=== PATIENT | male | born 1955 | race Caucasian/White ===

== ENCOUNTER → 2016-12-13 | Outpatient (REF) | payer OTHER | LOC: M LAB REF 13:14 | PROVIDERS: ATTEND Internal Medicine Nephrology | DX: Z48.22 Encounter for aftercare following kidney transplant (principal) ==

== ENCOUNTER → 2016-12-28 | Outpatient (REF) | payer OTHER | LOC: M LAB REF 12:57 | PROVIDERS: ATTEND Internal Medicine Nephrology | DX: Z48.22 Encounter for aftercare following kidney transplant (principal) ==

== ENCOUNTER → 2017-04-26 | Day surgery (SDC) | payer OTHER ==
[~2017-04-26] VITALS: Ht 185.4 cm; Wt 97.1 kg
[~2017-04-26] MED LIST: ALIN500T2 PO; AMLO10TA2 PO; ASPI81TA85 PO; BUPIVACAINE HCL 0.5% 30 ML VIAL As Ordered ONE; D5W/0.9% SODIUM CHLORIDE 1,000 ML IV SCH; EZETIMIBE PO; FOLI1TAB4 PO; HEPARIN SOD (PORCINE) 5000 UNITS/ML VIAL As Ordered ONE; LIDOCAINE 1% SDV INJ 30 ML VIAL As Ordered ONE; LIDOCAINE 2% INJ 100 MG/5 ML SDV (FOR ANES.) As Ordered ONE; MAGN400T5 PO; METO25TA4 PO; MIDAZOLAM INJ 2 MG/2 ML VIAL (J2250) As Ordered ONE; MYFO360T PO; PANT40TA2 PO; PERCOCET 5MG/325MG TAB As Ordered ONE; POTA4.25 PO; PRED5TA PO; PROG1CAP2 PO; PROPOFOL 200 MG/20 ML VIAL As Ordered ONE; ROPI0.5T PO; SIMVASTATIN PO; SULF1TAB23 PO; VITA250T30 PO; VYTO10TA25 PO; fentaNYL 100 MCG/2 ML INJECTION (J3010) As Ordered ONE
[2017-04-26 17:50] VITALS: BP 158/96
--- NOTE | 2017-05-17 19:17 | RO ---
DATE OF PROCEDURE: 04/26/2017 PREOPERATIVE DIAGNOSES: End-stage renal disease, status post renal transplantation. POSTOPERATIVE DIAGNOSES: End-stage renal disease status post renal transplantation. PROCEDURE: Right radiocephalic arteriovenous fistula formation. ATTENDING SURGEON: Judy Lowery MD THIRD GRADE TEACHER: None. ANESTHESIA: Local Monitored anesthesia care (MAC). ESTIMATED BLOOD LOSS: 50 mL IV FLUID: 900 mL HEPARIN: 5,000 units. COMPLICATIONS: None. DRAINS: None. SPECIMENS: None. IMPLANTS: None. INDICATION: Patient is a 61-year-old male with end-stage renal disease who underwent renal transplantation, has had failure of the transplantation requiring hemodialysis through a right internal jugular vein PermCath. The patient is regaining some of his transplant function and at this point is off of hemodialysis but was evaluated for access for intermediate frame tender hemodialysis in the future. The patient was evaluated and felt to a good candidate for a right radiocephalic arteriovenous fistula. Risks, benefits, and alternative treatment options were discussed with the patient. Alternative treatment options included, but were not limited to no intervention. Benefits included, but were not limited to access for hemodialysis without the need of a PermCath and reduced risk of complications secondary to PermCath. Risks included, but were not limited to infection, bleeding, failure of arteriovenous access to maintain patency with thrombosis, failure of arteriovenous access to mature requiring secondary intervention, possible need for further open surgical intervention, steal syndrome, cerebrovascular accident, myocardial infarction, pulmonary embolus, deep venous thrombosis (DVT), loss of limb, loss of life, and poor outcome. Patient understands, accepts these risks, and consents to proceed. DESCRIPTION OF PROCEDURE: Patient was taken to the operating room, placed supine on the operating room table, and the right upper extremity was prepped and draped in a standard surgical fashion. A time out was then completed with the staff in the room and myself confirming the correct laterality, patient and procedure. After the time out was completed, the skin overlying the radial artery and cephalic vein at the wrist were anesthetized with 1% lidocaine mixed with 0.50% Marcaine, after which two incisions were made, one over the radial artery, one over the cephalic vein. The cephalic vein was dissected as far distal as possible and transected with the remnant ligated with a #2-0 silk suture. The cephalic vein was then dilated with heparinized saline, brought through a tunnel between the two incisions and then anastomosed to the radial artery in an end-to-side fashion using #6-0 Prolene suture. There was good flow in the fistula at the completion of the anastomosis. The incisions were then closed with #3-0 Monocryl in a running subcuticular fashion once hemostasis was noted. Steri-Strips and dressings were applied. The patient tolerated the procedure well. All instruments, sponge and needle counts were correct at the end of the case. There were no complications. Dr. Lowery was present for and directed the entire case. Patient was transferred to the recovery room, awake, alert, extubated and in stable condition.
--- NOTE | 2017-05-17 19:20 | RO ---
DATE OF PROCEDURE: 04/26/2017 PREPROCEDURE DIAGNOSIS: End-stage renal disease, status post renal transplantation with failure of transplant. POSTPROCEDURE DIAGNOSIS: End-stage renal disease, status post renal transplantation with failure of transplant. PROCEDURE: Right internal jugular vein PermCath removal with cut down. SURGEON: Dr. Judy Lowery OYSTER WASHER: None. ANESTHESIA: Local with 10 mL of 1% lidocaine mixed with 0.5% Marcaine. COMPLICATIONS: None. DRAINS: None. SPECIMENS: None. IMPLANTS: None. INDICATION: The patient is a 61-year-old male with end-stage renal disease who underwent renal transplantation and has had failure of the transplantation requiring hemodialysis. The patient underwent placement of a PermCath and has been dialyzing through a right internal jugular vein PermCath. The patient has now recovered some of the function of the renal transplantation and no longer requires hemodialysis and will undergo removal of the right internal jugular vein PermCath. Risks, benefits and alternative treatment options were discussed with the patient. Alternative treatment options included but were not limited to no intervention. Risks included but were not limited to infection, bleeding, pneumothorax, hemothorax, cerebrovascular accident, myocardial infarction, pulmonary embolus, deep vein thrombosis (DVT), loss of limb, loss of life and poor outcome. Patient understands, accepts these risks and consents to proceed. DESCRIPTION OF PROCEDURE: The patient remained on the table after undergoing a right radiocephalic arteriovenous fistula formation. The right neck and chest region were prepped and draped in a standard surgical fashion. The sutures holding the PermCath in place were removed and manual traction was applied to the PermCath in an attempt to release the subcutaneous cuff spontaneously. This was not successful. The skin overlying the catheter and cuff were then anesthetized with 1% lidocaine mixed with 0.5% Marcaine after which the cuff was sharply dissected free through the entry site in the right chest. Once the cuff was sharply dissected free, the catheter was removed and manual compression was applied for hemostasis. Dressings were then applied. The patient tolerated the procedure well. All instrument, sponge and needle counts were correct at the end of the case. There were no complications. Dr. Lowery was present for and directed the entire case. The patient was transferred to the recovery room, awake, alert, extubated and in stable condition.
== END | disposition home or self-care (01) ==
LOC: M SDC 13:55
PROVIDERS: ATTEND Surgery Vascular Surgery
DX: N18.6 End stage renal disease (principal); Z94.0 Kidney transplant status; I12.0 Hypertensive chronic kidney disease with stage 5 chronic kidney disease or end stage renal disease; K21.9 Gastro-esophageal reflux disease without esophagitis; Z79.899 Other long term (current) drug therapy; Z87.891 Personal history of nicotine dependence; Z85.46 Personal history of malignant neoplasm of prostate
CPT/HCPCS: 36415; 36821; 84132; J2250; J3010

== ENCOUNTER 2017-05-04 16:57 | Inpatient (IN) | payer OTHER ==
[~2017-05-04] VITALS: Ht 185.4 cm; Wt 96.2 kg
[~2017-05-04 16:57] MED LIST changes: -ALIN500T2 PO; -BUPIVACAINE HCL 0.5% 30 ML VIAL As Ordered ONE; -D5W/0.9% SODIUM CHLORIDE 1,000 ML IV SCH; -HEPARIN SOD (PORCINE) 5000 UNITS/ML VIAL As Ordered ONE; -LIDOCAINE 1% SDV INJ 30 ML VIAL As Ordered ONE; -LIDOCAINE 2% INJ 100 MG/5 ML SDV (FOR ANES.) As Ordered ONE; -MIDAZOLAM INJ 2 MG/2 ML VIAL (J2250) As Ordered ONE; -PERCOCET 5MG/325MG TAB As Ordered ONE; -PROPOFOL 200 MG/20 ML VIAL As Ordered ONE; -SULF1TAB23 PO; -VYTO10TA25 PO; -fentaNYL 100 MCG/2 ML INJECTION (J3010) As Ordered ONE
[2017-05-04 18:09] LABS: BASO % 0.1 % (0.0-1.0); EOS # 0.1 K/mm3 (0.0-0.50); EOS % 1.6 % (0.0-3.0); LARGE UNSTAINED CELL # 0.1 K/mm3 (0.0-0.4); LARGE UNSTAINED CELL % 1.6 % (0.0-4.0); LYMPH # 1.1 K/mm3 (1.5-4.5); LYMPH % 17.4 % (24.0-44.0); MEAN CORPUSCULAR HEMOGLOBIN 28.7 pg (27.0-33.0); MEAN CORPUSCULAR HGB CONC 32.1 g/dl (32.0-36.5); MEAN CORPUSCULAR VOLUME 89.5 fl (80.0-96.0); MONO # 0.2 K/mm3 (0.0-0.8); NEUTROPHILS # 4.3 K/mm3 (1.8-7.7); NEUTROPHILS % 75.4 % (36.0-66.0); PLATELET COUNT, AUTOMATED 223 k/mm3 (150-450); RED CELL DISTRIBUTION WIDTH 17.1 % (11.5-14.5); WHITE BLOOD COUNT 5.7 K/mm3 (4.0-10.0)
[2017-05-04 18:33] LABS: ALBUMIN 4.3 GM/DL (3.2-5.2); ALBUMIN/GLOBULIN RATIO 1.59 (1.00-1.93); BILIRUBIN,DIRECT 0.2 MG/DL (0.0-0.2); BILIRUBIN,TOTAL 1.1 MG/DL (0.2-1.0); CALCIUM LEVEL 9.4 MG/DL (8.8-10.2); CREATININE FOR GFR 2.68 MG/DL (0.70-1.30); GLOMERULAR FILTRATION RATE 25.8 (>49); MAGNESIUM LEVEL 2.5 MG/DL (1.8-2.4); PHOSPHORUS LEVEL 4.2 MG/DL (2.5-4.9); POTASSIUM SERUM 4.3 MEQ/L (3.5-5.1)
[2017-05-04] MEDS ORDERED: NS 1,000 ML IV ONE (19:00)
--- NOTE | 2017-05-04 19:02 | REP ---
ACUTE ABDOMINAL SERIES: 05/04/2017. HISTORY: Abdominal pain. Comparison: 02/16/2016, 12/03/2010, KUB, CT abdomen and pelvis 02/10/2016. Findings: PA chest. Lung anderson are well inflated. CP angles sharply defined. There is no effusion, lateral pleural thickening, apical scarring and pneumothorax. No infiltrate or mass. No nodules. Nipple shadows project over the anterior 5th ribs on each side. Heart is not enlarged. Aorta is normal. Airway is intact. No mediastinal or hilar mass. No free air under the diaphragm. Flat and upright abdomen. There are right upper quadrant surgical clips and calcifications overlying the renal fossae on both sides, not much changed. There is a dextrorotatory curve lumbar spine centered at L1. There are short twelfth ribs. There are clips overlying the inferior aspect of the iliac bone near the SI joint on the right in this patient with a known transplant kidney in the pelvis. Gas pattern nonspecific. No dilated bowel loops, masses or free air. A few air-fluid levels in nondilated small bowel loops in the right upper quadrant noted. Impression: 1. Nonspecific gas pattern. A few air-fluid levels in nondilated small bowel loops in the right upper quadrant that might reflect some gastroenteritis or ileus. No dilated colon or small bowel, free air, abscess or mass. 2. Right upper quadrant surgical clips and bilateral calcifications in the renal fossae, unchanged. 3. Surgical clips over the right lower quadrant just lateral to the inferior margin of the SI joint in this patient with known transplant kidney. 4. PA chest without acute cardiopulmonary change. Signed by Ananth Sharpe MD 05/04/2017 08:25 P
[2017-05-04] MEDS ORDERED: VYTO10TA25 PO (19:43)
[2017-05-04] MEDS ORDERED: ONDANSETRON 4MG/2ML VIAL (J2405) IV PRN (20:45)
[2017-05-04] MEDS ORDERED: ACETAMINOPHEN TAB 650MG DOSE (2X325MG) PO PRN (20:45)
[2017-05-04] MEDS ORDERED: BACTRIM 160MG/800MG DS TAB PO ONE (21:00)
--- NOTE | 2017-05-04 21:03 | HPEPDOC ---
Medical History and Physical Date of Admission May 04, 2017 at 20:43 History and Physical PRIMARY CARE PROVIDER: Yuriy Marino ATTENDING: Yazan Clifford MD CHIEF COMPLAINT: Diarrhea HISTORY OF PRESENT ILLNESS: This is a 61-year-old male past medical history of end-stage renal disease, status post renal transplant 2006, hypertension, prostate cancer status post prostatectomy, kidney stones who presents complaining of diarrhea. Patient was recently hospitalized and [facility] and transferred to [facility] in February 2017 for progressive worsening of renal function, hyperkalemia, bradycardia. At the time patient was started on hemodialysis which he had continued with Dr. Erazo up until 2 weeks ago. Patient states that he started to develop diarrhea 5 days ago, and has had multiple episodes - 10-15 times a day. Urinating well. Patient called Dr. Erazo who recommended that he come to the emergency department. PAST MEDICAL HISTORY: As per HPI PAST SURGICAL HISTORY: Renal transplant 2005, prostatectomy 2007, AV fistula earlier this week SOCIAL HISTORY: History of half pack per day tobacco abuse 30 years, quit many years ago. Occasional alcohol. No illicit drug use. FAMILY HISTORY: Non contributory ALLERGIES: Please see below. REVIEW OF SYSTEMS: HEENT: Denies sore throat/headache CARDIOVASCULAR: Denies chest pain/palpitations RESPIRATORY: Denies shortness of breath/cough GASTROINTESTINAL: +nausea. No vomiting GENITOURINARY: Denies dysuria/urinary urgency. MUSCULOSKELETAL: Denies myalgias/arthralgias NEUROLOGICAL: Denies any focal weakness HOME MEDICATIONS: Please see below. PHYSICAL EXAMINATION: Vitals: (see below) General: No acute distress, laying comfortably in bed. HEENT: Moist mucous membranes. Neck: No JVD or lymphadenopathy Cardiac: RRR, No murmurs Pulm: Clear to auscultation b/l. No wheezing, rhonchi Abd: NT/ND + BS Ext: No edema or cyanosis. Right AVF with bruit/thrill. Distal pulse intact. Cap refill <2sec LABORATORY DATA: See below. IMAGING: Abdominal x-ray 05/04/17 Impression: 1. Nonspecific gas pattern. A few air-fluid levels in nondilated small bowel loops in the right upper quadrant that might reflect some gastroenteritis or ileus. No dilated colon or small bowel, free air, abscess or mass. 2. Right upper quadrant surgical clips and bilateral calcifications in the renal fossae, unchanged. MICROBIOLOGY: Please see below. ASSESSMENT/PLAN: 1. 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 Patient states that diarrhea has slightly started to slow down. Has been trying to keep up with his fluids. Given that he is immunocompromised, we will start Bactrim for Cyclospora. Supportive care. Gentle hydration. 2. End-stage renal disease, had been on hemodialysis up until 2 weeks ago. Status post kidney transplant 2005. Renal function noted, patient states that 2 weeks ago, his Cr was 2.39. Nephrology will be consulted. Continue patient's home meds. 3. History of hypertension- continue amlodipine 4. History of prostate cancer status post prostatectomy DVT prophylaxis out of bed and ambulate Patient followed by Dr. Allyson Archer starting 05/05/17 at 7 AM. Vital Signs Vital Signs Date Time Temp Pulse Resp B/P (MAP) Pulse Ox O2 Delivery O2 Flow Rate FiO2 05/04/17 19:19 05/04/17 16:57 97.5 62 16 98 Room Air Laboratory Data Labs 24H Laboratory Tests 2 05/04/17 17:56: White Blood Count 5.7, Red Blood Count 4.63, Hemoglobin 13.3L, Hematocrit 41.4L , Mean Corpuscular Volume 89.5, Mean Corpuscular Hemoglobin 28.7, Mean Corpuscular Hemoglobin Concent 32.1, Red Cell Distribution Width 17.1H, Platelet Count 223, Neutrophils (%) (Auto) 75.4H, Lymphocytes (%) (Auto) 17.4L, Monocytes (%) (Auto) 4.0, Eosinophils (%) (Auto) 1.6, Basophils (%) (Auto) 0.1, Neutrophils # (Auto) 4.3, Lymphocytes # (Auto) 1.1L, Monocytes # (Auto) 0.2, Eosinophils # (Auto) 0.1, Basophils # (Auto) 0.0, Large Unclassified Cells % 1.6 , Large Unclassified Cells # 0.1, Anion Gap 9, Glomerular Filtration Rate 25.8L , Calcium Level 9.4, Phosphorus Level 4.2, Magnesium Level 2.5H, Aspartate Amino Transf (AST/SGOT) 20, Alanine Aminotransferase (ALT/SGPT) 43, Alkaline Phosphatase 104, Total Bilirubin 1.1H, Direct Bilirubin 0.2, Total Protein 7.0, Albumin 4.3, Albumin/Globulin Ratio 1.59 05/04/17 17:57: Urine Appearance HAZY, Urine Color YELLOW, Urine pH 5.0, Urine Specific [place] 1.014, Urine Protein 1+H, Urine Glucose (UA) NEGATIVE, Urine Ketones NEGATIVE, Urine Urobilinogen 0.2, Urine Bilirubin NEGATIVE, Urine Leukocyte Esterase NEGATIVE, Urine Blood NEGATIVE, Urine Nitrite NEGATIVE, Urine WBC (Auto) 2, Urine RBC (Auto) 4H, Urine Hyaline Casts (Auto) 0, Urine Bacteria (Auto) 1+H, Urine Squamous Epithelial Cells 0, Urine Mucus (Auto) SMALL, Urine Sperm (Auto) CBC/BMP Laboratory Tests 05/04/17 17:56 Red Blood Count 4.63, Mean Corpuscular Volume 89.5, Mean Corpuscular Hemoglobin 28.7, Mean Corpuscular Hemoglobin Concent 32.1, Red Cell Distribution Width 17.1 H, Neutrophils (%) (Auto) 75.4 H, Lymphocytes (%) (Auto) 17.4 L, Monocytes (%) (Auto) 4.0, Eosinophils (%) (Auto) 1.6, Basophils (%) (Auto) 0.1, Neutrophils # (Auto) 4.3, Lymphocytes # (Auto) 1.1 L, Monocytes # (Auto) 0.2, Eosinophils # (Auto) 0.1, Basophils # (Auto) 0.0 Microbiology Microbiology 05/04/17 Gastrointestinal Tract Panel (PCR) - Final, Complete Cyclospora Cayetanensis Enteroaggregative E.coli Enteropathogenic E.coli Home Medications Scheduled (Vytorin 10-40 mg) 1 Tab Tab, 1 TAB PO QHS Amlodipine Besylate (Amlodipine Besylate) 10 Mg Tab, 10 MG PO DAILY Aspirin (Aspir-81) 81 Mg Tab, 81 MG PO DAILY Folic Acid (Folic Acid) 1 Mg Tab, 1 MG PO DAILY Magnesium Oxide (Magnesium Oxide 400) 400 Mg Tab, 800 MG PO BID Metoprolol Tartrate (Metoprolol Tartrate) 25 Mg Tab, 25 MG PO BID Nitazoxanide (Alinia) 500 Mg Tab, 500 MG PO BID Pantoprazole Sodium (Pantoprazole Sodium) 40 Mg Tab, 40 MG PO DAILY Prednisone (Prednisone) 5 Mg Tab, 5 MG PO DAILY Pyridoxine HCl (Vitamin B6) 250 Mg Tab, 250 MG PO DAILY Tacrolimus (Prograf) 1 Mg Cap, 1 MG PO BID Trimethoprim/Sulfamethoxazole (Smz-Tmp Ds 800-160 mg) 1 Tab Tab, 1 TAB PO DAILY Allergies Coded Allergies: No Known Allergies (Verified , 04/26/17) YAZAN CLIFFORD MD May 04, 2017 21:03
[2017-05-04 22:05] VITALS: BP 167/85
[2017-05-04] MEDS: MAGNESIUM OXIDE 400 MG TAB (MAG-OX) PO SCH (22:25)
[2017-05-04] MEDS: METOPROLOL TART 25 MG TABLET PO SCH (22:26)
[2017-05-04] MEDS: TACROLIMUS 1 MG CAP (J7507) PO SCH (23:50)
[2017-05-05 02:00] VITALS: BP 165/88
[2017-05-05 06:00] VITALS: BP 161/87
[2017-05-05] MEDS: predniSONE 5 MG TAB PO SCH (09:46)
[2017-05-05] MEDS: FOLIC ACID 1 MG TAB PO SCH (09:46)
[2017-05-05] MEDS: BACTRIM 80MG/400MG TAB PO SCH (09:46)
[2017-05-05] MEDS: NS 1,000 ML IV SCH ×2 (09:47→18:59)
[2017-05-05] MEDS: PANTOPRAZOLE 40MG TAB (PROTONIX) PO SCH (09:47)
[2017-05-05] MEDS: TACROLIMUS 1 MG CAP (J7507) PO SCH ×2 (09:47→20:53)
[2017-05-05] MEDS: ASPIRIN 81 MG ENTERIC TAB PO SCH (09:47)
[2017-05-05] MEDS: MAGNESIUM OXIDE 400 MG TAB (MAG-OX) PO SCH ×2 (09:50→20:52)
[2017-05-05] MEDS: METOPROLOL TART 25 MG TABLET PO SCH ×2 (09:55→20:39)
[2017-05-05] MEDS: amLODIPine 10 MG TAB PO SCH (09:56)
[2017-05-05 10:00] VITALS: BP 156/62
[2017-05-05 10:48] LABS: MEAN CORPUSCULAR HEMOGLOBIN 29.6 pg (27.0-33.0); MEAN CORPUSCULAR VOLUME 89.7 fl (80.0-96.0); RED CELL DISTRIBUTION WIDTH 16.7 % (11.5-14.5); WHITE BLOOD COUNT 4.5 K/mm3 (4.0-10.0)
[2017-05-05 11:24] LABS: CALCIUM LEVEL 8.6 MG/DL (8.8-10.2); CREATININE FOR GFR 2.13 MG/DL (0.70-1.30); GLOMERULAR FILTRATION RATE 33.6 (>49); POTASSIUM SERUM 3.9 MEQ/L (3.5-5.1)
--- NOTE | 2017-05-05 11:36 | IPNPDOC ---
Subjective Date Seen The patient was seen on 05/05/17. Subjective Chief Complaint/HPI The patient is a 61-year-old male admitted with a reason for visit of Cyclosporiasis. Events since last encounter continues to have watery diarrhea, no abdominal pain , no nausea or vomiting , no blood in stool, no chest pain or sob , no fever or chills, Objective Physical Examination General Exam: Positive: Alert, Cooperative, No Acute Distress Eye Exam: Positive: PERRLA, Conjunctiva & lids normal, EOMI, Negative: Sclera icteric ENT Exam: Positive: Atraumatic, Mucous membr. moist/pink, Pharynx Normal Neck Exam: Positive: Supple, Negative: JVD, thyromegaly Chest Exam: Positive: Clear to auscultation, Normal air movement Heart Exam: Positive: Rate Normal, Regular Rhythm, Normal S1, Normal S2, Negative: Murmurs, Rubs Abdomen Exam: Positive: Normal bowel sounds, Soft, Negative: Tenderness, Hepatospenomegaly Extremity Exam: Positive: Normal pulses, Negative: Clubbing, Cyanosis, Edema Skin Exam: Positive: Nl turgor and temperature, Negative: Rash, Breakdown Assessment /Plan Problems (1) Cyclosporiasis Status: Acute Problem Text: will continue with IVF and bactrim adjust dosage according to renal functions will consult id (2) CLARE (acute kidney injury) Status: Acute Problem Text: will continue with IVF. consulted nephrology (3) Renal transplant, status post Status: Chronic Problem Text: will continue with immunosuppressants. about 2 months ago had acute transplant failure and was started on HD taken of HD 2 weeks ago as renal function had improved. (4) History of prostate cancer Status: Chronic (5) Kidney calculi Status: Chronic (6) Hypertension Status: Chronic Plan/VTE VTE Prophylaxis Ordered?: Yes VS, I&O, 24H, Fishbone Vital Signs/I&O Vital Signs Date Time Temp Pulse Resp B/P (MAP) Pulse Ox O2 Delivery O2 Flow Rate FiO2 05/05/17 10:00 98.1 64 18 156/62 (93) 96 Room Air I&O- Last 24 Hours up to 6 AM 05/05/17 06:00 Intake Total 1000 ml Output Total 625 ml Balance 375 ml Laboratory Data 24H LABS Laboratory Tests 2 05/04/17 17:56: White Blood Count 5.7, Red Blood Count 4.63, Hemoglobin 13.3L, Hematocrit 41.4L , Mean Corpuscular Volume 89.5, Mean Corpuscular Hemoglobin 28.7, Mean Corpuscular Hemoglobin Concent 32.1, Red Cell Distribution Width 17.1H, Platelet Count 223, Neutrophils (%) (Auto) 75.4H, Lymphocytes (%) (Auto) 17.4L, Monocytes (%) (Auto) 4.0, Eosinophils (%) (Auto) 1.6, Basophils (%) (Auto) 0.1, Neutrophils # (Auto) 4.3, Lymphocytes # (Auto) 1.1L, Monocytes # (Auto) 0.2, Eosinophils # (Auto) 0.1, Basophils # (Auto) 0.0, Large Unclassified Cells % 1.6 , Large Unclassified Cells # 0.1, Anion Gap 9, Glomerular Filtration Rate 25.8L , Calcium Level 9.4, Phosphorus Level 4.2, Magnesium Level 2.5H, Aspartate Amino Transf (AST/SGOT) 20, Alanine Aminotransferase (ALT/SGPT) 43, Alkaline Phosphatase 104, Total Bilirubin 1.1H, Direct Bilirubin 0.2, Total Protein 7.0, Albumin 4.3, Albumin/Globulin Ratio 1.59 05/04/17 17:57: Urine Appearance HAZY, Urine Color YELLOW, Urine pH 5.0, Urine Specific [place] 1.014, Urine Protein 1+H, Urine Glucose (UA) NEGATIVE, Urine Ketones NEGATIVE, Urine Urobilinogen 0.2, Urine Bilirubin NEGATIVE, Urine Leukocyte Esterase NEGATIVE, Urine Blood NEGATIVE, Urine Nitrite NEGATIVE, Urine WBC (Auto) 2, Urine RBC (Auto) 4H, Urine Hyaline Casts (Auto) 0, Urine Bacteria (Auto) 1+H, Urine Squamous Epithelial Cells 0, Urine Mucus (Auto) SMALL, Urine Sperm (Auto) 05/05/17 10:40: Anion Gap 10, Glomerular Filtration Rate 33.6L, Calcium Level 8.6L, Blood Urea Nitrogen 39H, Creatinine 2.13H, Sodium Level 139, Potassium Level 3.9, Chloride Level 109H, Carbon Dioxide Level 20L CBC/BMP Laboratory Tests 05/04/17 17:56 Red Blood Count 4.63, Mean Corpuscular Volume 89.5, Mean Corpuscular Hemoglobin 28.7, Mean Corpuscular Hemoglobin Concent 32.1, Red Cell Distribution Width 17.1 H, Neutrophils (%) (Auto) 75.4 H, Lymphocytes (%) (Auto) 17.4 L, Monocytes (%) (Auto) 4.0, Eosinophils (%) (Auto) 1.6, Basophils (%) (Auto) 0.1, Neutrophils # (Auto) 4.3, Lymphocytes # (Auto) 1.1 L, Monocytes # (Auto) 0.2, Eosinophils # (Auto) 0.1, Basophils # (Auto) 0.0 05/05/17 10:40 Red Blood Count 4.25 L, Mean Corpuscular Volume 89.7, Mean Corpuscular Hemoglobin 29.6, Mean Corpuscular Hemoglobin Concent 33.0, Red Cell Distribution Width 16.7 H, Calcium Level 8.6 L Microbiology Microbiology 05/04/17 Gastrointestinal Tract Panel (PCR) - Final, Complete Cyclospora Cayetanensis Enteroaggregative E.coli Enteropathogenic E.coli RIANNA FREIRE MD May 05, 2017 11:36
[2017-05-05 14:00] VITALS: BP 156/82
[2017-05-05 18:00] VITALS: BP 162/89
[2017-05-05] MEDS: NITAZOXANIDE 500 MG TAB (ALINIA) PO SCH (23:34)
[2017-05-05 23:59] VITALS: BP 162/88
[2017-05-06] MEDS: NS 1,000 ML IV SCH ×2 (01:41→08:21)
[2017-05-06 02:00] VITALS: BP 125/79
[2017-05-06 06:00] VITALS: BP 133/80
[2017-05-06 07:53] LABS: MEAN CORPUSCULAR HEMOGLOBIN 29.2 pg (27.0-33.0); MEAN CORPUSCULAR HGB CONC 32.1 g/dl (32.0-36.5); MEAN CORPUSCULAR VOLUME 91.1 fl (80.0-96.0); WHITE BLOOD COUNT 6.5 K/mm3 (4.0-10.0)
[2017-05-06 08:01] LABS: ALBUMIN 3.7 GM/DL (3.2-5.2); CALCIUM LEVEL 8.8 MG/DL (8.8-10.2); CREATININE FOR GFR 1.99 MG/DL (0.70-1.30); GLOMERULAR FILTRATION RATE 36.3 (>49); PHOSPHORUS LEVEL 3.4 MG/DL (2.5-4.9); POTASSIUM SERUM 4.1 MEQ/L (3.5-5.1)
[2017-05-06] MEDS: ASPIRIN 81 MG ENTERIC TAB PO SCH (08:21)
[2017-05-06] MEDS: PANTOPRAZOLE 40MG TAB (PROTONIX) PO SCH (08:21)
[2017-05-06] MEDS: predniSONE 5 MG TAB PO SCH (08:21)
[2017-05-06] MEDS: METOPROLOL TART 25 MG TABLET PO SCH ×2 (08:24→21:05)
[2017-05-06] MEDS: BACTRIM 80MG/400MG TAB PO SCH (08:26)
[2017-05-06] MEDS: TACROLIMUS 1 MG CAP (J7507) PO SCH ×2 (08:26→21:00)
[2017-05-06] MEDS: FOLIC ACID 1 MG TAB PO SCH (08:27)
[2017-05-06] MEDS: amLODIPine 10 MG TAB PO SCH (08:27)
[2017-05-06] MEDS: MAGNESIUM OXIDE 400 MG TAB (MAG-OX) PO SCH ×3 (08:27→21:00)
[2017-05-06] MEDS: HEPARIN SOD (PORCINE) 5000 UNITS/ML VIAL SQ SCH ×2 (09:00→21:00)
[2017-05-06 10:00] VITALS: BP 130/77
[2017-05-06] MEDS: NITAZOXANIDE 500 MG TAB (ALINIA) PO SCH ×2 (11:05→21:01)
--- NOTE | 2017-05-06 11:15 | IPNPDOC ---
Subjective Date Seen The patient was seen on 05/06/17. Subjective Chief Complaint/HPI The patient is a 61-year-old male admitted with a reason for visit of Cyclosporiasis. Events since last encounter Had 21 episodes of diarrhea yesterday says overnight had gotten a little better still watery but not as frequent as before, no abdominal pain , no nausea or vomiting , no fever or chills, no chest pain or sob , no cough or phlegm Objective Physical Examination General Exam: Positive: Alert, Cooperative, No Acute Distress Eye Exam: Positive: PERRLA, Conjunctiva & lids normal, EOMI, Negative: Sclera icteric ENT Exam: Positive: Atraumatic, Mucous membr. moist/pink, Pharynx Normal Neck Exam: Positive: Supple, Negative: JVD, thyromegaly Chest Exam: Positive: Clear to auscultation, Normal air movement Heart Exam: Positive: Rate Normal, Regular Rhythm, Normal S1, Normal S2, Negative: Murmurs, Rubs Abdomen Exam: Positive: Normal bowel sounds, Soft, Negative: Tenderness, Hepatospenomegaly Extremity Exam: Positive: Normal pulses, Negative: Clubbing, Cyanosis, Edema Skin Exam: Positive: Nl turgor and temperature, Negative: Rash, Breakdown Assessment /Plan Problems (1) Cyclosporiasis Status: Acute Problem Text: will continue with IVF and bactrim adjust dosage according to renal functions Seen By ID started also on nitaxonide. (2) CLARE (acute kidney injury) Status: Acute Response to Treatment: Improving Problem Text: will continue with IVF. consulted nephrology (3) Renal transplant, status post Status: Chronic Problem Text: will continue with immunosuppressants. about 2 months ago had acute transplant failure and was started on HD taken of HD 2 weeks ago as renal function had improved. (4) History of prostate cancer Status: Chronic (5) Kidney calculi Status: Chronic (6) Hypertension Status: Chronic Plan/VTE VTE Prophylaxis Ordered?: Yes VS, I&O, 24H, Fishbone Vital Signs/I&O Vital Signs Date Time Temp Pulse Resp B/P (MAP) Pulse Ox O2 Delivery O2 Flow Rate FiO2 05/06/17 08:27 56 160/85 05/06/17 06:00 97.7 17 99 Room Air I&O- Last 24 Hours up to 6 AM 05/06/17 06:00 Intake Total 4305 ml Output Total 950 ml Balance 3355 ml Laboratory Data 24H LABS Laboratory Tests 2 05/06/17 07:15: Blood Urea Nitrogen 27H, Creatinine 1.99H, Sodium Level 141, Potassium Level 4.1 , Chloride Level 112H, Carbon Dioxide Level 16L, Anion Gap 13, Glomerular Filtration Rate 36.3L, Calcium Level 8.8, Phosphorus Level 3.4, Magnesium Level 2.0, Albumin 3.7 CBC/BMP Laboratory Tests 05/06/17 07:15 Anion Gap 13 05/06/17 07:16 Red Blood Count 4.46, Mean Corpuscular Volume 91.1, Mean Corpuscular Hemoglobin 29.2, Mean Corpuscular Hemoglobin Concent 32.1, Red Cell Distribution Width 17.0 H Microbiology Microbiology 05/04/17 Gastrointestinal Tract Panel (PCR) - Final, Complete Cyclospora Cayetanensis Enteroaggregative E.coli Enteropathogenic E.coli RIANNA FREIRE MD May 06, 2017 11:15
[2017-05-06] MEDS: SODIUM BICARBONATE 75 MEQ in NS 0.45% 1,000 ML IV SCH ×2 (11:40→18:10)
[2017-05-06 14:00] VITALS: BP 149/71
[2017-05-06 18:00] VITALS: BP 147/77
--- NOTE | 2017-05-06 20:53 | IPN ---
DATE: 05/06/2017 Mr. Lees is seen this morning on his bedside. He was admitted with diarrhea and acute renal failure in the setting of kidney transplant. His stool test came back positive for Cyclospora and enteropathogenic E-coli. He is being treated with IV fluids and antibiotics. Apparently he had more than 30 liquid stools yesterday. He reports no bowel movement this morning so far. He is feeling better today and denies any nausea, abdominal pain, vomiting, fever or chills. PHYSICAL EXAMINATION: Temperature 97.7 degrees Fahrenheit, heart rate 56 per minute and respiratory rate 18 per minute. Blood pressure 160/85 mmHg and oxygen saturation 99% on room air. Intake and output records from yesterday showed total intake 3405 and output 1275 ml. He also had more than 30 stools, though recorded are only 21 as the patient did not inform the nursing staff about several events. His head is atraumatic. Neck is supple and without jugular venous distention (JVD) or thyroid enlargement. There is no oral thrush or ulcers. Heart: Sounds are regular. Lungs: Clear to auscultation bilaterally. Abdomen: Soft and nontender and without a palpable organomegaly. Transplant kidney is nontender in right lower quadrant. Extremities: Have no cyanosis or clubbing. Skin has no rash or ulcers. Neurologically he is awake, alert and oriented times three. Today's labs show WBC count 6.5, hemoglobin 13 and hematocrit 40.6. Sodium 141, potassium 4.1. CO2 is down to 16, BUN 27 and creatinine 1.99. Glucose 101 and calcium 8.8. PROBLEMS: 1. Diarrhea seems to be responding. The patient had Cyclospora and E-coli in his stool. We will continue with aggressive IV fluid hydration in order to decrease the risk of dehydration. He will remain on Bactrim 1 tablet daily, single strength, and Dr. Perez has also added nitazoxanide 500 mg twice a day 2. Metabolic acidosis. Most likely related to ongoing diarrhea. We will switch his IV fluid to sodium bicarbonate, bicarbonate drip with 75 mEq of sodium bicarbonate in half-normal saline and run at 150 mL per hour. Once his acidosis is corrected then we will stop the bicarbonate drip. 3. Acute renal failure superimposed on chronic kidney disease. This was related to dehydration and is gradually improving. We will continue with IV fluid at 150 mL per hour. 4. Kidney transplant status. The patient has been on mycophenolate, tacrolimus and prednisone. His mycophenolate is currently on hold due to diarrhea. We will resume it once he feels better. At present we will continue with tacrolimus and prednisone. 5. Hypertension. Blood pressure is reasonably well-controlled though slightly high today. Will continue to monitor and adjust his medications if needed. He will continue with amlodipine 10 mg daily and metoprolol 25 mg twice a day.
[2017-05-06 22:00] VITALS: BP 178/90
--- NOTE | 2017-05-06 22:40 | CR ---
DATE OF CONSULTATION: 05/05/2017 I was asked to consult by Dr. Yee for evaluation of Cyclosporiasis and enteropathogenic Escherichia (E) coli. HISTORY OF PRESENT ILLNESS: Jamil is a pleasant 61-year-old gentleman who is a renal transplant recipient since 2006, immunocompromised, who presented with a week history of profuse diarrhea going 20-30 times a day. The patient stated he has had diarrhea intermittently for months, but most recently over the past week has been severe. He denied having any nausea or vomiting. He had some cramps whenever he had to go to the bathroom. No incontinence. No fever or chills. The patient has recently been hospitalized at [facility] being transferred from [facility] on 02/17 through 02/23 with hyperkalemia and bradycardia and acute renal failure requiring hemodialysis, which he continued up until 2 weeks prior to admission. His Perma-Cath was removed on 04/16/17 and a new arteriovenous (AV) fistula was created by Dr. Lowery in his right arm. His kidney function has remained stable in the past 2 weeks with his kidney function normally at about 1.8. Since he has developed the diarrhea, creatinine had increased to 2.6 from patient was admitted for intravenous (IV) fluid hydration and treatment of the diarrhea. Stool was sent, was positive for Cyclospora and enteropathogenic E. coli. PAST MEDICAL HISTORY: 1. End-stage renal disease status post renal transplantation 2006. 2. Hypertension. 3. Prostate cancer. 4. Kidney stone, probably the cause of his renal failure, multiple stones with obstruction. PAST SURGICAL HISTORY: 1. Renal transplant 2006. 2. Prostatectomy for cancer in 2007. 3. AV fistula by Dr. Lowery 04/16/2017, and removal of Port-A-Cath. 4. Colonoscopy done by Dr. Hamilton September 2013. 5. Endoscopy and colonoscopy done by Dr. Lanier in 2006. 6. Previous AV fistula in left upper arm was excised and he has a residual, what looks like a small aneurysm. SOCIAL HISTORY: He used to smoke half a pack a day for 30 years, quit many years ago. Occasional alcohol use. No illicit drug use. 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 ALLERGIES: No known drug allergies. MEDICATIONS: - Norvasc 10 mg by mouth daily - Vytorin one tablet by mouth nightly - aspirin 81 mg daily - folic acid 1 mg daily - magnesium oxide 800 mg by mouth twice a day - metoprolol 25 mg by mouth twice a day - mycophenolate 360 mg by mouth twice a day - Protonix 40 mg by mouth daily - prednisone 5 mg by mouth daily - pyridoxine 250 mg by mouth daily - Prograf 1 mg by mouth twice a day LABORATORY DATA: White count is 4.5, hemoglobin 12.6, hematocrit 38.1, platelets 187. Sodium 139, potassium 3.9, chloride 109, bicarbonate 20, BUN 39, creatinine 2.13 , glucose 102, calcium 8.6. Urinalysis had 2 white cells and 4 red cells. Stools were positive for Cyclospora cayetanensis. Stool was unformed. E. coli and enteropathogenic E. coli. PHYSICAL EXAMINATION: He is a healthy looking gentleman in no acute distress. Temperature is 98.3, pulse 68, respirations 18, blood pressure 162/89, oxygen saturation 98% on room air. Heart: Normal S1, S2. No murmurs. Lungs are clear. No wheezes, rales or rhonchi. Abdomen is soft, multiple scars of right lower quadrant of renal transplant, left lower quadrant of previous nephrectomy, midline surgery of prostatectomy. Back: No costovertebral angle (CVA) or lumbosacral tenderness. Extremities: No clubbing, cyanosis or edema. No calf tenderness. Oropharynx is clear. The patient is a 61-year-old gentleman immunocompromised on multiple meds including prednisone, mycophenolate and Prograf who presents with severe diarrhea and dehydration with increasing kidney function. Creatinine increased from 1.8 to 2.7. The patient has received intravenous (IV) fluids and was started on Bactrim single-strength one tablet by mouth daily, adjusted for renal function to treat for Cyclospora. Enteropathogenic Escherichia (E) coli could be innocuous by standards, but sometimes could be also pathogenic and hopefully Bactrim would be also taking care of that. Due to the fact that his kidney function has worsened, his dose of Bactrim could not be increased to the usual dose of double-strength one tablet twice a day. Since he is immunocompromised, I would suggest adding a second drug. PLAN: Continue Bactrim single-strength one tablet daily. If his creatinine improves to less than 2, increase his dose to twice a day. Add nitazoxanide 500 mg by mouth twice a day for 14 days. I would treat this patient for 10-14 days minimum because of his severe renal compromise. If diarrhea does not improve in the next 2-3 days, he has had over the 19 bowel movements today, would call the renal transplant team in [place] and discuss his immunosuppression, whether some of his dose could be decreased or held until his diarrhea improves. The patient has not followed up with the renal transplant team in a while. He has followed up only with Dr. Erazo, so we may need to have him reestablish in [place] as well. LORENAD
[2017-05-07 02:00] VITALS: BP 157/68
[2017-05-07] MEDS: SODIUM BICARBONATE 75 MEQ in NS 0.45% 1,000 ML IV SCH (02:18)
[2017-05-07 05:54] LABS: MEAN CORPUSCULAR HEMOGLOBIN 29.2 pg (27.0-33.0); MEAN CORPUSCULAR HGB CONC 32.3 g/dl (32.0-36.5); MEAN CORPUSCULAR VOLUME 90.4 fl (80.0-96.0); RED CELL DISTRIBUTION WIDTH 16.9 % (11.5-14.5); WHITE BLOOD COUNT 5.7 K/mm3 (4.0-10.0)
[2017-05-07 06:00] VITALS: BP 170/77
[2017-05-07 06:15] LABS: ALBUMIN 3.3 GM/DL (3.2-5.2); CALCIUM LEVEL 8.4 MG/DL (8.8-10.2); CREATININE FOR GFR 1.61 MG/DL (0.70-1.30); GLOMERULAR FILTRATION RATE 46.4 (>49); MAGNESIUM LEVEL 1.6 MG/DL (1.8-2.4); PHOSPHORUS LEVEL 3.1 MG/DL (2.5-4.9); POTASSIUM SERUM 3.5 MEQ/L (3.5-5.1)
[2017-05-07] MEDS: MAG SULF 1GM/100ML (MAG RUN) 1 GM in APPROPRIATE DILUENT 1 EA IV SCH ×2 (07:58→09:20)
--- NOTE | 2017-05-07 08:31 | IPNPDOC ---
Subjective Date Seen The patient was seen on 05/07/17. Subjective Chief Complaint/HPI The patient is a 61-year-old male admitted with a reason for visit of Cyclosporiasis. Events since last encounter diarrhea getting better less frequent and thicker, no adbominal pain but lots of gas, no nausea or vomiting . Objective Physical Examination General Exam: Positive: Alert, Cooperative, No Acute Distress Eye Exam: Positive: PERRLA, Conjunctiva & lids normal, EOMI, Negative: Sclera icteric ENT Exam: Positive: Atraumatic, Mucous membr. moist/pink, Pharynx Normal Neck Exam: Positive: Supple, Negative: JVD, thyromegaly Chest Exam: Positive: Clear to auscultation, Normal air movement Heart Exam: Positive: Rate Normal, Regular Rhythm, Normal S1, Normal S2, Negative: Murmurs, Rubs Abdomen Exam: Positive: Normal bowel sounds, Soft, Negative: Tenderness, Hepatospenomegaly Extremity Exam: Positive: Normal pulses, Negative: Clubbing, Cyanosis, Edema Skin Exam: Positive: Nl turgor and temperature, Negative: Rash, Breakdown Assessment /Plan Problems (1) Cyclosporiasis Status: Acute Problem Text: will continue with IVF and bactrim adjust dosage according to renal functions GFR better to increased dosage of bactim to 1 DS tab daily Seen By ID started also on nitazaxonide. (2) SILVER (acute kidney injury) Status: Acute Response to Treatment: Improving Problem Text: Silver on ckd . baseline creatine 1.7 to 1.9 will continue with IVF. nephrology following. (3) Renal transplant, status post Status: Chronic Problem Text: will continue with immunosuppressants. mycophenolate is on hold , tacro and prednisone are continued. about 2 months ago had acute transplant failure and was started on HD taken of HD 2 weeks ago as renal function had improved. baseline creatinine after renal transplant 1.7 to 1.9 for 10 years till he developed acute transplant failure 2 months ago. (4) History of prostate cancer Status: Chronic (5) Kidney calculi Status: Chronic (6) Hypertension Status: Chronic Plan/VTE VTE Prophylaxis Ordered?: Yes VS, I&O, 24H, Fishbone Vital Signs/I&O Vital Signs Date Time Temp Pulse Resp B/P (MAP) Pulse Ox O2 Delivery O2 Flow Rate FiO2 05/07/17 06:00 98.0 64 20 170/77 (108) 96 Room Air I&O- Last 24 Hours up to 6 AM 05/07/17 06:00 Intake Total 4320 ml Output Total 5300 ml Balance -980 ml Laboratory Data 24H LABS Laboratory Tests 2 05/07/17 05:14: Blood Urea Nitrogen 17, Creatinine 1.61H, Sodium Level 142, Potassium Level 3.5 , Chloride Level 111H, Carbon Dioxide Level 21, Anion Gap 10, Glomerular Filtration Rate 46.4L, Calcium Level 8.4L, Phosphorus Level 3.1, Magnesium Level 1.6L, Albumin 3.3 CBC/BMP Laboratory Tests 05/07/17 05:14 Red Blood Count 4.05 L, Mean Corpuscular Volume 90.4, Mean Corpuscular Hemoglobin 29.2, Mean Corpuscular Hemoglobin Concent 32.3, Red Cell Distribution Width 16.9 H, Anion Gap 10 Microbiology Microbiology 05/04/17 Gastrointestinal Tract Panel (PCR) - Final, Complete Cyclospora Cayetanensis Enteroaggregative E.coli Enteropathogenic E.coli RIANNA FREIRE MD May 07, 2017 08:31
[2017-05-07] MEDS: HEPARIN SOD (PORCINE) 5000 UNITS/ML VIAL SQ SCH ×2 (09:00→21:00)
[2017-05-07] MEDS: TACROLIMUS 1 MG CAP (J7507) PO SCH ×2 (09:15→21:08)
[2017-05-07] MEDS: NITAZOXANIDE 500 MG TAB (ALINIA) PO SCH ×2 (09:15→21:07)
[2017-05-07] MEDS: amLODIPine 10 MG TAB PO SCH (09:15)
[2017-05-07] MEDS: ASPIRIN 81 MG ENTERIC TAB PO SCH (09:16)
[2017-05-07] MEDS: BACTRIM 160MG/800MG DS TAB PO SCH (09:16)
[2017-05-07] MEDS: FOLIC ACID 1 MG TAB PO SCH (09:17)
[2017-05-07] MEDS: MAGNESIUM OXIDE 400 MG TAB (MAG-OX) PO SCH ×2 (09:17→21:07)
[2017-05-07] MEDS: PANTOPRAZOLE 40MG TAB (PROTONIX) PO SCH (09:18)
[2017-05-07] MEDS: METOPROLOL TART 25 MG TABLET PO SCH ×2 (09:18→21:08)
[2017-05-07] MEDS: predniSONE 5 MG TAB PO SCH (09:19)
[2017-05-07 10:00] VITALS: BP 164/79
[2017-05-07] MEDS ORDERED: POTASSIUM CHLORIDE 10 MEQ SR TABLET PO ONE (12:00)
--- NOTE | 2017-05-07 12:47 | IPN ---
DATE: 05/06/2016 Mr. Lees seems to be doing better today. He had 21 bowel movements yesterday; today between midnight and 10:00 a.m. he only had two bowel movements. He has no nausea, vomiting, or abdominal pain. No fever or chills. He feels better. LABORATORY DATA: White count 6.5, hemoglobin 13, hematocrit 40.6, platelets 224. Sodium 141, potassium 4.1, chloride 112, bicarbonate 16, BUN 27, creatinine 1.9, glucose 101, calcium 8.8, phosphorus 3.4, magnesium 2, albumin 3.7. Stool culture had Cyclospora cayetanensis , enteroaggregative Escherichia (E) coli and enteropathogenic E. coli. PHYSICAL EXAMINATION: Temperature is 97.7, pulse 64, respirations 17, blood pressure 133/80, oxygen saturation 99% on room air. HEART: Normal S1, S2. No murmurs. LUNGS: Clear. No wheezes, rales, or rhonchi. ABDOMEN: Soft, nontender. BACK: No costovertebral angle (CVA) tenderness. EXTREMITIES: No edema. New arteriovenous (AV) fistula in the right wrist area. Old left AV fistula, nontender. IMPRESSION: 1. Cyclospora diarrhea with severe profuse diarrhea yesterday, improved today with Bactrim single strength daily. Nitazoxanide was also added, as patient is immunocompromised. 2. History of renal transplant, on tacrolimus, mycophenolate, and prednisone 5 mg. Mycophenolate has been held, which I agree with, as he is quite immunosuppressed with severe diarrhea. Would recommend holding for at least 4 weeks if okay with renal transplant team. 3. Enteropathogenic E. coli, enteroaggregative E. coli. Could be just innocuous bystanders. PLAN: Continue with Bactrim single strength daily. If his creatinine improves or if Dr. rEazo approves, maybe could increase to double-strength one tablet daily. Continue nitazoxanide 500 mg by mouth twice a day. Will treat the patient for 14 days, as he is immunocompromised.
[2017-05-07 14:00] VITALS: BP 145/69
[2017-05-07 18:00] VITALS: BP 143/73
[2017-05-08 02:00] VITALS: BP 144/67
--- NOTE | 2017-05-08 04:30 | IPN ---
DATE OF SERVICE: 05/07/2017 Mr. Lees is seen this morning on his bedside. He is feeling much better today and reports significant improvement in his diarrhea. He denies any nausea, vomiting or abdominal pain. He reports eating well and denies any blood in the stool or black colored stools. He did have a couple of loose stools today. However, volume has decreased significantly. PHYSICAL EXAMINATION: Temperature 98.5 degrees Fahrenheit, heart rate 60 per minute and respiratory rate 18 per minute. Blood pressure 164/79 mmHg and oxygen saturation 96% on room air. Intake and output records from yesterday showed total intake 4400 and output 4650. He had reported only four bowel movements last 24 hours. His neck veins are not abnormally distended and neck is supple and without any thyroid enlargement. Head is atraumatic. Pupils are equal and reactive to light and sclera is anicteric. Ears, nose and throat are unremarkable. Heart sounds are regular and lungs clear to auscultation bilaterally. Abdomen: Soft and nontender and without any palpable organomegaly. Transplant kidney in right lower quadrant is nontender. Extremities have no cyanosis or clubbing. Skin has no rash or ulcers. Neurologically, he is awake, alert and oriented times three. Today's labs show WBC count 5.7, hemoglobin 11.8 and hematocrit 36.6. Sodium 142 and potassium 3.5. BUN 17 and creatinine 1.61. Magnesium level 1.6 and calcium 8.4. PROBLEMS: 1. Diarrhea. The patient did have Cyclospora in his stool along with enteropathogenic Escherichia (E) coli. He is doing much better with Bactrim and will continue with the same. He is also receiving intravenous (IV) fluid and tolerating oral intake very well now. After current bag of IV fluid, I am going to stop it. 2. Metabolic acidosis. His acidosis has improved significantly. He has been on IV sodium bicarbonate drip. Diarrhea has improved now, so we will stop the bicarbonate drip later today when current bag runs out. 3. Hypomagnesemia. The patient has been on oral magnesium supplement. He did receive one dose of magnesium sulfate this morning and will continue with oral supplement. 4. Hypokalemia. This is related to large amount of IV fluid and ongoing diarrhea. We will give him one dose of oral potassium chloride 40 mEq and recheck his electrolytes tomorrow. 5. Acute kidney injury superimposed on chronic kidney disease. This was related to dehydration caused by diarrhea. Kidney function has improved to baseline or slightly better. Now his oral intake is adequate. We will stop his IV fluids and monitor his kidney function. 6. Kidney transplant status. The patient has been doing well and we will continue with prednisone and tacrolimus. Currently, his mycophenolate is on hold due to diarrhea. Once his diarrhea is completely resolved, then we will resume mycophenolate. 7. Disposition. At this point, the patient still needs to be in the hospital and will reevaluate him tomorrow. Once his diarrhea is completely better, then he can be discharged and continue with oral Bactrim at home.
[2017-05-08 06:00] VITALS: BP 161/77
[2017-05-08 06:03] LABS: MEAN CORPUSCULAR HEMOGLOBIN 29.3 pg (27.0-33.0); MEAN CORPUSCULAR HGB CONC 32.6 g/dl (32.0-36.5); MEAN CORPUSCULAR VOLUME 89.8 fl (80.0-96.0); RED CELL DISTRIBUTION WIDTH 16.7 % (11.5-14.5); WHITE BLOOD COUNT 5.9 K/mm3 (4.0-10.0)
[2017-05-08 06:21] LABS: ALBUMIN 3.1 GM/DL (3.2-5.2); CALCIUM LEVEL 8.4 MG/DL (8.8-10.2); CREATININE FOR GFR 1.75 MG/DL (0.70-1.30); GLOMERULAR FILTRATION RATE 42.1 (>49); MAGNESIUM LEVEL 1.9 MG/DL (1.8-2.4); PHOSPHORUS LEVEL 2.8 MG/DL (2.5-4.9); POTASSIUM SERUM 3.8 MEQ/L (3.5-5.1)
[2017-05-08] MEDS: BACTRIM 160MG/800MG DS TAB PO SCH (08:55)
[2017-05-08] MEDS: NITAZOXANIDE 500 MG TAB (ALINIA) PO SCH (08:55)
[2017-05-08 08:56] VITALS: BP 149/83
[2017-05-08] MEDS: amLODIPine 10 MG TAB PO SCH (08:56)
[2017-05-08] MEDS: FOLIC ACID 1 MG TAB PO SCH (08:56)
[2017-05-08] MEDS: MAGNESIUM OXIDE 400 MG TAB (MAG-OX) PO SCH (08:56)
[2017-05-08] MEDS: METOPROLOL TART 25 MG TABLET PO SCH (08:56)
[2017-05-08] MEDS: ASPIRIN 81 MG ENTERIC TAB PO SCH (08:56)
[2017-05-08] MEDS: predniSONE 5 MG TAB PO SCH (08:56)
[2017-05-08] MEDS: HEPARIN SOD (PORCINE) 5000 UNITS/ML VIAL SQ SCH (08:57)
[2017-05-08] MEDS: TACROLIMUS 1 MG CAP (J7507) PO SCH (08:57)
[2017-05-08] MEDS: PANTOPRAZOLE 40MG TAB (PROTONIX) PO SCH (08:57)
[2017-05-08] MEDS ORDERED: ALIN500T2 PO (09:19)
[2017-05-08] MEDS ORDERED: SULF1TAB23 PO (09:19)
--- NOTE | 2017-05-08 22:19 | DSES ---
DATE OF ADMISSION: 05/06/2017 DATE OF DISCHARGE: 05/08/2017 PRIMARY CARE PROVIDER: Yuriy Foy. REGULATORY SUBMISSIONS ASSOCIATE: Dr. Erazo. DISCHARGE DIAGNOSES: 1. Cyclospora diarrhea. 2. Enteropathogenic Escherichia (E) coli and enteroaggregative E. coli in stool could be just bystanders. 3. Acute kidney injury on chronic kidney disease, baseline creatinine of 1.7-1.9. 4. Renal transplant status. 5. Recent history of acute transplant failure requiring hemodialysis for about 2 months. Discontinued hemodialysis in the first of week April 2017. 6. History of prostate cancer. 7. Hypertension. 8. Renal stones. HOSPITAL COURSE: This is a 61-year-old male who presented to the emergency room with intractable diarrhea of watery in nature for 5 days having about 15-20 times per day. Patient was found to be dehydrated having acute kidney injury on chronic kidney disease. Patient's stool was sent and was found to have Cyclosporiasis along with enteropathogenic E. coli and enteroaggregative E. coli. Dr. Perez from infectious disease saw the patient and the patient was started on Bactrim and nitazoxanide. Patient was given aggressive hydration. There was dramatic improvement in his diarrhea with only 4-5 times per day. His renal functions improved with creatinine coming down to baseline. His mycophenolate was held because of diarrhea and will continue to be held on discharge until diarrhea has resolved completely. At present, patient's symptoms are much improved, does not have any complaints. Vital signs are stable and functionally patient is at baseline, so the patient is going to be discharged home. PHYSICAL EXAMINATION: VITAL SIGNS: Temperature 98.2, pulse 58, respiratory rate 20, blood pressure 149/83, pulse oximetry 98% in room air. GENERAL: Patient awake, alert, oriented times three, sitting up in bed in no acute distress. HEENT: Normocephalic, atraumatic. Moist mucous membranes. Anicteric eyes. CHEST: Clear to auscultation. CARDIOVASCULAR: S1, S2 regular. No rub, murmur or gallop. ABDOMEN: Soft, nontender, bowel sounds present. EXTREMITIES: No edema. LABORATORY DATA: WBC 5.9, hemoglobin 11.5, platelets 183. Sodium 143, potassium 3.8, chloride 112, bicarbonate 20, BUN 16, creatinine 1.75, glucose 111, calcium 8.4. DISPOSITION: Patient is discharged home in a stable condition. DISCHARGE INSTRUCTIONS: Patient to followup with Dr. Erazo within a week. Patient to followup with primary care provider in 1 week. Patient should get complete blood count (CBC) and basic metabolic panel checked weekly until patient is off antibiotics. Regular diet. Activity as tolerated. Patient to followup with Dr. Perez in 2 weeks.
--- NOTE | 2017-05-23 07:51 | CR ---
DATE OF CONSULTATION: 05/05/2017 NEPHROLOGY CONSULTATION FOR: Allyson Archer MD REASON FOR CONSULTATION: Is acute renal failure, diarrhea in this gentleman with kidney transplant. HISTORY OF PRESENT ILLNESS: Mr. Lees is a 61-year-old gentleman with known history of end-stage renal disease related to primary hyperoxaluria and kidney stones. He has a kidney transplant. which has been working well. However, he developed acute renal failure few weeks ago and required temporary hemodialysis. His dialysis was stopped just a couple of weeks ago when his kidney function partially improved. He is now admitted to [facility] with diarrhea for 5 days duration prior to admission and acute kidney injury. A nephrology consultation was requested and patient is seen in the morning of 05/05/2017 on his bedside. I discussed his condition earlier at the time of admission with the emergency room physician and recommendations were given for treatment. PAST MEDICAL AND SURGICAL HISTORY: Significant for 1. History of primary hyperoxaluria 2. History of recurrent kidney stones. 3. History of prior nephrectomy related to kidney stones. 4. History of kidney transplant in 2005. 5. Hypertension. 6. History of prostate cancer, status post prostatectomy. 7. History of recent acute renal failure due to oxalosis. 8. History of prior atriovenous (AV) fistula surgery and most recent new AV fistula creation in his right wrist. PERSONAL AND SOCIAL HISTORY: Patient is . He smoked, however did quit smoking. He denies any recreation or drug use and does drink beer. FAMILY HISTORY: Is significant for primary hyperoxaluria. ALLERGIES: Patient has NO KNOWN DRUG ALLERGIES. MEDICATIONS: His home medications include: - amlodipine 10 mg daily - Vytorin 10/40 mg daily - aspirin 81 mg daily - folic acid 1 mg daily - magnesium oxide 400 mg twice a day - metoprolol 25 mg twice a day - Myfortic 360 mg twice a day - Protonix 40 mg daily - prednisone 5 mg daily - tacrolimus 1 mg twice a day - pyridoxine 250 mg daily REVIEW OF SYSTEMS: Patient denies any fever or chills. Ears, nose and throat are unremarkable. Cardiovascular system is significant for hypertension and no history of congestive heart failure or coronary artery disease known. Respiratory system is negative for cough, hemoptysis or pleuritic type of chest pain. Gastrointestinal (GI) system is significant for recurrent diarrhea for at least 5 days prior to admission. He denies any abdominal pain, rectal bleeding or black colored stools. He denies any vomiting. Genitourinary () system is significant for history of kidney transplant and primary hyperoxaluria with recurrent kidney stones. He denies any hematuria or dysuria. Musculoskeletal system negative for any significant arthritis or leg edema. Endocrine system is negative for diabetes or thyroid problems. Hematological system is negative for anemia or anticoagulation. Neurological system negative for seizures or stroke. Skin is negative for rash or ulcers. Psychosocial system negative for depression or anxiety. PHYSICAL EXAMINATION: Patient is awake and alert at the time of my visit. Temperature is 98.3 degrees Fahrenheit, heart rate 66 per minute and respiratory rate 18 per minute. Blood pressure 156/62 mmHg and oxygen saturation 92% on room air. Head is atraumatic. Ears, nose and throat are unremarkable. Pupils equal and reactive to light and sclera is anicteric. Neck is supple and without jugular venous distention (JVD) or thyroid enlargement. Heart sounds are regular and without a gallop or murmur. Lungs: Clear to auscultation bilaterally. Abdomen: Soft and nontender and without hepatosplenomegaly. Transplant kidney in right lower quadrant is nontender. Extremities have no cyanosis or clubbing. Skin has no rash or ulcers. Neurologically, he is awake, alert and oriented times three. LABORATORY DATA: WBC count 4.5, hemoglobin 12.6 and hematocrit 38.1. Platelets 187. On admission, his sodium was 133 and potassium 4.3. BUN 41 and creatinine 2.68. Magnesium 2.5, calcium 9.4 and phosphorus 4.2. Urinalysis showed 1+ protein and 2 WBCs and 4 RBCs. Abdominal x-ray was negative for any air-fluid levels. Bilateral calcifications in the renal fossa and surgical clips noted. PROBLEMS: 1. Diarrhea. Most likely patient has infective diarrhea. His stools study has come back positive for Cyclospora and enteropathogenic Escherichia (E) coli. Patient has been started on Bactrim. Infectious disease consultation is pending at this point. I recommend to continue with IV fluid hydration as patient has frequent loose stools. Will need to monitor him closely due to prior history of similar episode when he developed acute renal failure and required temporary dialysis. His diarrhea is most likely related to immunocompromised status. 2. Acute renal failure superimposed on chronic kidney disease. His baseline serum creatinine is about 2.0. Acute renal failure is related to dehydration caused by recurrent diarrhea. Aggressive IV fluid hydration is recommended as patient has frequent loose stools. Will increase his IV fluid to 150 mL/hr. 3. Metabolic acidosis. Patient remains at risk for worsening metabolic acidosis related to frequent diarrhea. We will recheck his chemistry and consider sodium bicarbonate drip if indicated. At this point, we will continue with normal saline. 4. End-stage renal disease, status post kidney transplant. Patient has kidney transplant since 2005. He had recent episode of acute renal failure and required dialysis. We will continue with tacrolimus and prednisone. His Myfortic is being held due to ongoing diarrhea. We will continue to monitor him at this point without any other intervention. I do not feel that he needs a stress dose of steroids. I thank you for involving me in the care of Mr. Lees. I have discussed with him at length and answered all his questions. I have also discussed with his over the phone and answered all her questions.
== END 2017-05-08 11:16 | disposition home or self-care (01) | DRG 372 ==
LOC: M ED 16:57 → M ED INP 20:43 → M MSPAV 22:04 → OBSVTOIN 05-06 11:11
PROVIDERS: ADMIT Internal Medicine; ATTEND Internal Medicine Nephrology
DX: A07.4 Cyclosporiasis (principal); Z94.0 Kidney transplant status; N17.9 Acute kidney failure, unspecified; E87.2 Acidosis; I12.9 Hypertensive chronic kidney disease with stage 1 through stage 4 chronic kidney disease, or unspecified chronic kidney disease; E87.6 Hypokalemia; E86.0 Dehydration; N18.9 Chronic kidney disease, unspecified; E83.42 Hypomagnesemia; A04.4 Other intestinal Escherichia coli infections; Z85.46 Personal history of malignant neoplasm of prostate; Z87.442 Personal history of urinary calculi; Z87.891 Personal history of nicotine dependence; Z79.52 Long term (current) use of systemic steroids; Z79.899 Other long term (current) drug therapy

== ENCOUNTER → 2017-05-19 | Outpatient (REF) | payer OTHER ==
[~2017-05-19] MED LIST changes: +ALIN500T2 PO; +SULF1TAB23 PO; +VYTO10TA25 PO
== END ==
LOC: M LAB REF 13:11
PROVIDERS: ATTEND Internal Medicine Nephrology
DX: Z48.22 Encounter for aftercare following kidney transplant (principal)

== ENCOUNTER → 2017-09-13 | Outpatient (REF) | payer OTHER | LOC: M LAB REF 13:57 | PROVIDERS: ATTEND Internal Medicine Nephrology | DX: Z48.22 Encounter for aftercare following kidney transplant (principal) ==

== ENCOUNTER 2017-11-20 19:31 | Inpatient (IN) | payer OTHER ==
[2017-11-20] MEDS: ONDANSETRON 4MG/2ML VIAL (J2405) IV (20:48)
[2017-11-20] MEDS: NS 500 ML IV (20:48)
[2017-11-20 21:13] LABS: BASO % 0.1 % (0.0-1.0); EOS # 0.1 10^3/uL (0.0-0.50); EOS % 0.8 % (0.0-3.0); HEMATOCRIT 39.3 % (42.0-52.0); HEMOGLOBIN 12.4 g/dl (14.0-18.0); IMMATURE GRANULOCYTE % 0.1 % (0-3.0); LYMPH # 0.5 10^3/uL (1.5-4.5); LYMPH % 6.3 % (24.0-44.0); MEAN CORPUSCULAR HEMOGLOBIN 27.8 pg (27.0-33.0); MEAN CORPUSCULAR HGB CONC 31.6 g/dl (32.0-36.5); MEAN CORPUSCULAR VOLUME 88.1 fl (80.0-96.0); MONO # 0.6 10^3/uL (0.0-0.8); MONO % 6.5 % (0.0-5.0); NEUTROPHILS # 7.5 10^3/uL (1.8-7.7); NEUTROPHILS % 86.2 % (36.0-66.0); PLATELET COUNT, AUTOMATED 231 10^3/uL (150-450); RED BLOOD COUNT 4.46 10^6/uL (4.30-6.10); RED CELL DISTRIBUTION WIDTH 15.7 % (11.5-14.5); WHITE BLOOD COUNT 8.6 10^3/uL (4.0-10.0)
[2017-11-20 21:45] LABS: ALBUMIN/GLOBULIN RATIO 1.43 (1.00-1.93); ALKALINE PHOSPHATASE 90 U/L (45-117); ALT/SGPT 17 U/L (12-78); AST/SGOT 13 U/L (7-37); BILIRUBIN,DIRECT 0.1 MG/DL (0.0-0.2); BILIRUBIN,TOTAL 0.6 MG/DL (0.2-1.0); BLOOD UREA NITROGEN 75 MG/DL (7-18); CALCIUM LEVEL 8.7 MG/DL (8.8-10.2); CARBON DIOXIDE LEVEL 22 MEQ/L (21-32); CHLORIDE LEVEL 108 MEQ/L (98-107); CREATININE FOR GFR 4.26 MG/DL (0.70-1.30); GLUCOSE, FASTING 132 MG/DL (70-100); LIPASE 132 U/L (73-393); TOTAL PROTEIN 6.8 GM/DL (6.4-8.2)
[2017-11-20 21:49] LABS: ANION GAP 11 MEQ/L (8-16); SODIUM LEVEL 141 MEQ/L (136-145)
[2017-11-20 21:50] LABS: POTASSIUM SERUM 6.1 MEQ/L (3.5-5.1)
[2017-11-20] MEDS: NS 1,000 ML IV ×2 (22:49→23:32)
[2017-11-20] MEDS ORDERED: ACETAMINOPHEN TAB 650MG DOSE (2X325MG) PO (23:15)
[2017-11-20] MEDS ORDERED: ONDANSETRON 4MG/2ML VIAL (J2405) IV (23:15)
[2017-11-21] MEDS: TACROLIMUS 1 MG CAP (J7507) PO ×3 (01:06→21:22)
[2017-11-21 05:11] LABS: EOS # 0.1 10^3/uL (0.0-0.50); EOS % 1.6 % (0.0-3.0); HEMATOCRIT 31.5 % (42.0-52.0); IMMATURE GRANULOCYTE % 0.2 % (0-3.0); LYMPH # 1.4 10^3/uL (1.5-4.5); LYMPH % 32.5 % (24.0-44.0); MEAN CORPUSCULAR HEMOGLOBIN 28.7 pg (27.0-33.0); MEAN CORPUSCULAR HGB CONC 32.4 g/dl (32.0-36.5); MEAN CORPUSCULAR VOLUME 88.5 fl (80.0-96.0); MONO # 0.3 10^3/uL (0.0-0.8); MONO % 6.6 % (0.0-5.0); NEUTROPHILS # 2.6 10^3/uL (1.8-7.7); NEUTROPHILS % 59.1 % (36.0-66.0); PLATELET COUNT, AUTOMATED 171 10^3/uL (150-450); RED BLOOD COUNT 3.56 10^6/uL (4.30-6.10); RED CELL DISTRIBUTION WIDTH 15.7 % (11.5-14.5); WHITE BLOOD COUNT 4.4 10^3/uL (4.0-10.0)
[2017-11-21 05:16] LABS: HEMOGLOBIN 10.2 g/dl (14.0-18.0)
[2017-11-21 05:31] LABS: ANION GAP 10 MEQ/L (8-16); BLOOD UREA NITROGEN 76 MG/DL (7-18); CALCIUM LEVEL 8.2 MG/DL (8.8-10.2); CARBON DIOXIDE LEVEL 23 MEQ/L (21-32); CHLORIDE LEVEL 108 MEQ/L (98-107); CREATININE FOR GFR 4.27 MG/DL (0.70-1.30); GLUCOSE, FASTING 88 MG/DL (70-100); POTASSIUM SERUM 5.1 MEQ/L (3.5-5.1); SODIUM LEVEL 141 MEQ/L (136-145)
[2017-11-21] MEDS: HEPARIN SOD (PORCINE) 5000 UNITS/ML VIAL SC ×3 (06:29→21:22)
[2017-11-21] MEDS: NS 1,000 ML IV (09:09)
[2017-11-21] MEDS: PANTOPRAZOLE 40MG TAB (PROTONIX) PO (09:09)
[2017-11-21] MEDS: FOLIC ACID 1 MG TAB PO (09:09)
[2017-11-21] MEDS: predniSONE 5 MG TAB PO (09:09)
[2017-11-21] MEDS: NS 0.45% 1,000 ML IV ×2 (11:21→21:15)
[2017-11-21 13:34] LABS: ANION GAP 9 MEQ/L (8-16); BLOOD UREA NITROGEN 71 MG/DL (7-18); CALCIUM LEVEL 8.2 MG/DL (8.8-10.2); CARBON DIOXIDE LEVEL 22 MEQ/L (21-32); CHLORIDE LEVEL 109 MEQ/L (98-107); CREATININE FOR GFR 4.28 MG/DL (0.70-1.30); GLUCOSE, FASTING 93 MG/DL (70-100); MAGNESIUM LEVEL 2.4 MG/DL (1.8-2.4); PHOSPHORUS LEVEL 3.4 MG/DL (2.5-4.9); SODIUM LEVEL 140 MEQ/L (136-145)
[2017-11-21 13:35] LABS: POTASSIUM SERUM 5.2 MEQ/L (3.5-5.1)
[2017-11-21] MEDS: BICITRA 30ML SOLN UDC PO ×2 (13:49→21:22)
[2017-11-21] MEDS: PYRIDOXINE 50 MG TAB PO ×2 (13:50→22:59)
[2017-11-21] MEDS: MYFORTIC 360 MG PO (23:45)
[2017-11-22] MEDS: HEPARIN SOD (PORCINE) 5000 UNITS/ML VIAL SC ×3 (05:21→21:54)
[2017-11-22 05:40] LABS: APPEARANCE, URINE CLEAR (CLEAR); BACTERIA, URINE AUTO 1+ (NEGATIVE); BILIRUBIN, URINE AUTO NEGATIVE (NEGATIVE); BLOOD, URINE BLOOD NEGATIVE (NEGATIVE); COLOR, URINE STRAW (YELLOW); GLUCOSE, URINE (UA) AUTO NEGATIVE (NEGATIVE); KETONE, URINE AUTO NEGATIVE (NEGATIVE); LEUKOCYTE ESTERASE, URINE AUTO NEGATIVE (NEGATIVE); NITRITE, URINE AUTO NEGATIVE (NEGATIVE); PROTEIN, URINE AUTO 1+ mg/dL (NEGATIVE); RBC, URINE AUTO 4 /HPF (0-3); SPECIFIC GRAVITY URINE AUTO 1.005 (1.002-1.035); SQUAMOUS EPITHELIAL CELL UR AU 0 /HPF (0-6); UROBILINOGEN, URINE AUTO 0.2 mg/dL (0.0-2.0); WBC, URINE AUTO 1 /HPF (0-3)
[2017-11-22 06:03] LABS: EOS # 0.2 10^3/uL (0.0-0.50); EOS % 2.9 % (0.0-3.0); HEMATOCRIT 29.8 % (42.0-52.0); HEMOGLOBIN 9.4 g/dl (14.0-18.0); IMMATURE GRANULOCYTE % 0.2 % (0-3.0); LYMPH # 1.7 10^3/uL (1.5-4.5); LYMPH % 33.6 % (24.0-44.0); MEAN CORPUSCULAR HEMOGLOBIN 27.9 pg (27.0-33.0); MEAN CORPUSCULAR HGB CONC 31.5 g/dl (32.0-36.5); MEAN CORPUSCULAR VOLUME 88.4 fl (80.0-96.0); MONO # 0.3 10^3/uL (0.0-0.8); MONO % 4.9 % (0.0-5.0); NEUTROPHILS % 58.4 % (36.0-66.0); PLATELET COUNT, AUTOMATED 158 10^3/uL (150-450); RED BLOOD COUNT 3.37 10^6/uL (4.30-6.10); RED CELL DISTRIBUTION WIDTH 15.5 % (11.5-14.5); WHITE BLOOD COUNT 5.1 10^3/uL (4.0-10.0)
[2017-11-22 06:17] LABS: ANION GAP 10 MEQ/L (8-16); BLOOD UREA NITROGEN 64 MG/DL (7-18); CALCIUM LEVEL 7.9 MG/DL (8.8-10.2); CARBON DIOXIDE LEVEL 21 MEQ/L (21-32); CHLORIDE LEVEL 110 MEQ/L (98-107); CREATININE FOR GFR 3.99 MG/DL (0.70-1.30); GLOMERULAR FILTRATION RATE 16.2 (>49); GLUCOSE, FASTING 115 MG/DL (70-100); POTASSIUM SERUM 4.4 MEQ/L (3.5-5.1); SODIUM LEVEL 141 MEQ/L (136-145)
[2017-11-22] MEDS: MYFORTIC 360 MG PO ×2 (09:04→20:31)
[2017-11-22] MEDS: FOLIC ACID 1 MG TAB PO (09:05)
[2017-11-22] MEDS: BICITRA 30ML SOLN UDC PO ×2 (09:05→20:30)
[2017-11-22] MEDS: PANTOPRAZOLE 40MG TAB (PROTONIX) PO (09:05)
[2017-11-22] MEDS: TACROLIMUS 1 MG CAP (J7507) PO ×2 (09:05→20:30)
[2017-11-22] MEDS: predniSONE 5 MG TAB PO (09:05)
[2017-11-22] MEDS: PYRIDOXINE 50 MG TAB PO (09:05)
[2017-11-22] MEDS: MAGNESIUM OXIDE 400 MG TAB (MAG-OX) PO ×2 (11:35→20:30)
[2017-11-23] MEDS: HEPARIN SOD (PORCINE) 5000 UNITS/ML VIAL SC (05:16)
[2017-11-23 06:51] LABS: IONIZED CALCIUM 4.7 MG/DL (4.5-5.3)
[2017-11-23 07:10] LABS: PHOSPHORUS LEVEL 4.2 MG/DL (2.5-4.9)
[2017-11-23 07:46] LABS: ANION GAP 11 MEQ/L (8-16); BLOOD UREA NITROGEN 63 MG/DL (7-18); CALCIUM LEVEL 8.5 MG/DL (8.8-10.2); CARBON DIOXIDE LEVEL 20 MEQ/L (21-32); CHLORIDE LEVEL 110 MEQ/L (98-107); CREATININE FOR GFR 3.83 MG/DL (0.70-1.30); GLUCOSE, FASTING 102 MG/DL (70-100); POTASSIUM SERUM 4.4 MEQ/L (3.5-5.1); SODIUM LEVEL 141 MEQ/L (136-145)
[2017-11-23] MEDS: MYFORTIC 360 MG PO (10:06)
[2017-11-23] MEDS: PANTOPRAZOLE 40MG TAB (PROTONIX) PO (10:07)
[2017-11-23] MEDS: FOLIC ACID 1 MG TAB PO (10:07)
[2017-11-23] MEDS: predniSONE 5 MG TAB PO (10:07)
[2017-11-23] MEDS: MAGNESIUM OXIDE 400 MG TAB (MAG-OX) PO (10:07)
[2017-11-23] MEDS: TACROLIMUS 1 MG CAP (J7507) PO (10:08)
[2017-11-23] MEDS: PYRIDOXINE 50 MG TAB PO (10:08)
[2017-11-23] MEDS: BICITRA 30ML SOLN UDC PO (10:09)
[2017-11-26 00:06] LABS: FK 506 (TACROLIMUS) LABCORP 4.7 ng/mL (2.0-20.0)
== END 2017-11-23 12:35 | disposition home or self-care (01) | DRG 392 ==
LOC: M MS4PR 11-22 20:53 → M ED 19:31 → M ED INP 23:05 → M PCU 23:57
DX: K52.9 Noninfective gastroenteritis and colitis, unspecified (principal); E72.53 Primary hyperoxaluria; N17.9 Acute kidney failure, unspecified; Z94.0 Kidney transplant status; I12.9 Hypertensive chronic kidney disease with stage 1 through stage 4 chronic kidney disease, or unspecified chronic kidney disease; E87.5 Hyperkalemia; E78.5 Hyperlipidemia, unspecified; N18.3 Chronic kidney disease, stage 3 (moderate); Z85.46 Personal history of malignant neoplasm of prostate; Z79.84 Long term (current) use of oral hypoglycemic drugs; Z79.52 Long term (current) use of systemic steroids; Z79.899 Other long term (current) drug therapy

== ENCOUNTER → 2017-11-25 | Outpatient (REF) | payer OTHER ==
[2017-11-25 18:03] LABS: CHOLESTEROL LEVEL 193 MG/DL (<200); CHOLESTEROL RISK RATIO 3.574 (<5); HDL CHOLESTEROL 54 MG/DL (>40); LDL CHOLESTEROL 108.6 MG/DL (<100); NON-HDL-C 139 MG/DL; TRIGLYCERIDES LEVEL 152 MG/DL (<150)
[2017-11-28 08:06] LABS: FK 506 (TACROLIMUS) LABCORP 3.8 ng/mL (2.0-20.0)
== END ==
LOC: M LAB REF 16:57
DX: Z48.22 Encounter for aftercare following kidney transplant (principal); E78.00 Pure hypercholesterolemia, unspecified

== ENCOUNTER → 2017-12-12 | Outpatient (REF) | payer OTHER ==
[2017-12-12 14:23] LABS: CHOLESTEROL LEVEL 274 MG/DL (<200); CHOLESTEROL RISK RATIO 4.892 (<5); HDL CHOLESTEROL 56 MG/DL (>40); LDL CHOLESTEROL 177.2 MG/DL (<100); NON-HDL-C 218 MG/DL; TRIGLYCERIDES LEVEL 204 MG/DL (<150)
[2017-12-14 00:06] LABS: FK 506 (TACROLIMUS) LABCORP 2.2 ng/mL (2.0-20.0)
== END ==
LOC: M LAB REF 13:29
DX: Z97.0 Presence of artificial eye (principal); N17.9 Acute kidney failure, unspecified; E78.00 Pure hypercholesterolemia, unspecified

== ENCOUNTER → 2018-02-16 | Outpatient (CLI) | payer OTHER | LOC: M RAD 06:03 | DX: M79.604 Pain in right leg (principal) | CPT/HCPCS: 93971 ==

== ENCOUNTER → 2018-04-11 | Outpatient (REF) | payer OTHER ==
[2018-04-11 13:46] LABS: CHOLESTEROL LEVEL 170 MG/DL (<200); CHOLESTEROL RISK RATIO 3.695 (<5); HDL CHOLESTEROL 46 MG/DL (>40); LDL CHOLESTEROL 84.8 MG/DL (<100); NON-HDL-C 124 MG/DL; TRIGLYCERIDES LEVEL 196 MG/DL (<150)
[2018-04-14 11:11] LABS: FK 506 (TACROLIMUS) LABCORP 5.3 ng/mL (2.0-20.0)
== END ==
LOC: M LAB REF 12:53
DX: N17.9 Acute kidney failure, unspecified (principal); Z94.0 Kidney transplant status; E78.00 Pure hypercholesterolemia, unspecified
CPT/HCPCS: 80061

== ENCOUNTER → 2018-11-02 | Outpatient (REF) | payer OTHER ==
[~2018-11-02] MED LIST changes: -AMLO10TA2 PO; +AMLO10TA5 PO; +AMLO25TA PO; +Citric Acid/Sodium Citrate PO; +ENAL20TA PO; +FOLI1TAB11 PO; -FOLI1TAB4 PO; +FURO20TA2 PO; +MAG400TA PO; -PANT40TA2 PO; +PANT40TA3 PO; -SULF1TAB23 PO; +SULF1TAB93 PO
== END ==
LOC: M LAB REF 12:43
PROVIDERS: ATTEND Internal Medicine Nephrology
DX: Z94.0 Kidney transplant status (principal)

== ENCOUNTER → 2019-02-05 | Outpatient (REF) | payer OTHER | LOC: M LAB REF 12:59 | PROVIDERS: ATTEND Internal Medicine Nephrology | DX: Z94.0 Kidney transplant status (principal) ==

== ENCOUNTER → 2019-05-04 | Outpatient (REF) | payer OTHER | LOC: M LAB REF 13:48 | PROVIDERS: ATTEND Internal Medicine Nephrology | DX: Z94.0 Kidney transplant status (principal) ==

== ENCOUNTER → 2019-07-13 | Outpatient (REF) | payer OTHER ==
[2019-07-13 13:47] LABS: PERCENT SATURATION 37.5 % (19.7-50.0)
== END ==
LOC: M LAB REF 13:06
PROVIDERS: ATTEND Internal Medicine Nephrology
DX: Z94.0 Kidney transplant status (principal); D50.9 Iron deficiency anemia, unspecified

== ENCOUNTER → 2019-09-11 | Outpatient (REF) | payer OTHER ==
[2019-09-11 14:23] LABS: CHOLESTEROL RISK RATIO 2.947 (<5)
== END ==
LOC: M LAB REF 13:50
PROVIDERS: ATTEND Internal Medicine Nephrology
DX: Z94.0 Kidney transplant status (principal); Z48.22 Encounter for aftercare following kidney transplant; E78.00 Pure hypercholesterolemia, unspecified

== ENCOUNTER → 2019-09-13 | Outpatient (CLI) | payer OTHER ==
--- NOTE | 2019-09-13 16:58 | REP ---
ULTRASOUND RIGHT RENAL TRANSPLANT: Real-time ultrasound evaluation and duplex Doppler interrogation of the right renal transplant is performed. Transplant kidney measures 14.1 x 5.8 x 6.8 cm. Two cysts in the upper aspect measure 1.4 x 1.5 x 1.2 cm and 9 x 8 x 9 mm. A cyst in the mid aspect measures 1.3 x 1.1 x 1.2 cm. Two echogenic foci in the lower collecting system may represent two adjacent calculi, each measuring about 5 mm. In the upper collecting system another echogenic focus may represent a calculus 6 mm in diameter. Duplex Doppler evaluation demonstrates resistive indices in the upper third 0.78 and in the mid and lower thirds 0.80. Acceleration times range between 0.036 and 0.050. Peak systolic velocity in the external iliac artery above the renal artery anastomosis is 114 cm/s, distal to the anastomosis 117 cm/s. Main renal artery demonstrates peak systolic velocity at the anastomosis 137 cm/s with lower peak systolic velocities distal to that. Peak systolic velocity ratio of main renal artery to external iliac arteries 1.17. Main renal vein is patent. IMPRESSION: Right renal transplant demonstrates no hydronephrosis. There are a few cysts and calculi as discussed above. No evidence of renal artery stenosis or renal vein thrombosis. Electronically Signed by Gilberto Anderson MD 09/13/2019 05:00 P
== END ==
LOC: M RAD 14:37
PROVIDERS: ATTEND Internal Medicine Nephrology
DX: Q61.02 Congenital multiple renal cysts (principal); N17.9 Acute kidney failure, unspecified; Z94.0 Kidney transplant status

== ENCOUNTER → 2019-11-02 | Outpatient (REF) | payer OTHER ==
[2019-11-02 14:29] LABS: PERCENT SATURATION 33.9 % (19.7-50.0)
== END ==
LOC: M LAB REF 13:41
PROVIDERS: ATTEND Internal Medicine Nephrology
DX: N17.9 Acute kidney failure, unspecified (principal); Z94.0 Kidney transplant status; D50.9 Iron deficiency anemia, unspecified; R80.9 Proteinuria, unspecified

== ENCOUNTER → 2019-11-06 | Outpatient (REF) | payer OTHER ==
[2019-11-09 00:07] LABS: ANCA-ATYPICAL <1:20 titer (Neg:<1:20); ANTI DS-DNA AB Negative (Negative); ANTI-GLOMERULAR BASEMENT MEMB 3 units (0-20); CYTOPLASMIC NEUTROP AB ANCA-C <1:20 titer (Neg:<1:20); PERINUCLEAR AB ANCA-P <1:20 titer (Neg:<1:20)
== END ==
LOC: M LAB REF 13:01
PROVIDERS: ATTEND Internal Medicine Nephrology
DX: R80.9 Proteinuria, unspecified (principal)

== ENCOUNTER → 2019-12-10 | Outpatient (REF) | payer OTHER ==
[~2019-12-10] MED LIST changes: -ROPI0.5T PO; +ROPI0.5T3 PO
[2019-12-10 14:40] LABS: PERCENT SATURATION 16.3 % (19.7-50.0)
== END ==
LOC: M LAB REF 13:12
PROVIDERS: ATTEND Internal Medicine Nephrology
DX: N17.9 Acute kidney failure, unspecified (principal); D50.9 Iron deficiency anemia, unspecified

== ENCOUNTER → 2019-12-12 | Outpatient (CLI) | payer OTHER ==
[~2019-12-12] MED LIST changes: +ALLO10TA PO; +AMLO10TA PO; +FERR240T PO; +MINO2.5T PO; +NICO21DI9 TD; +RETA1000 IJ; +ROCA0.25 PO; +SIMV40TA20 PO; +TORS20TA2 PO
--- NOTE | 2019-12-12 14:49 | REPVR ---
PROCEDURE INFORMATION: Exam: CT Maxillofacial Without Contrast Exam date and time: 12/12/2019 2:14 PM Age: 64 years old Clinical indication: Sinusitis; Type not specified; Additional info: Chronic pansinusitis TECHNIQUE: Imaging protocol: Computed tomography images of the face without contrast. Radiation optimization: All CT scans at this facility use at least one of these dose optimization techniques: automated exposure control; mA and/or kV adjustment per patient size (includes targeted exams where dose is matched to clinical indication); or iterative reconstruction. COMPARISON: CT SINUS W/O CONTRAST - OUTSIDE PRIOR 10/11/2019 4:34 PM FINDINGS: Orbits: There is bony erosion and destruction with soft tissue extension into the medial aspect of the right orbit causing medial displacement of the medial rectus muscle and mild exophthalmos. The left orbit appears normal. Mastoid air cells: The visualized mastoid air cells are clear. Sinuses: Examination reveals complete opacification with bony expansion involving the right maxillary, ethmoid and frontal sinuses with extension into the right nasal cavity causing complete airway obstruction in the nasal cavity on the right side. 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 ENT consultation and biopsy is recommended for further evaluation. Moderate mucosal thickening is seen in the left maxillary and left ethmoid sinus. Bones/joints: No acute fracture. Brain: The visualized brain parenchyma is unremarkable. Soft tissues: Unremarkable. IMPRESSION: 1. Examination reveals complete opacification with bony expansion involving the right maxillary, ethmoid and frontal sinuses with extension into the right nasal cavity causing complete airway obstruction in the nasal cavity on the right side. 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 ENT consultation and biopsy is recommended for further evaluation. 2. There is bony erosion and destruction with soft tissue extension into the medial aspect of the right orbit causing medial displacement of the medial rectus muscle and mild exophthalmos. The left orbit appears normal. Electronically signed by: Ace Nayak On 12/12/2019 14:49:12 PM
== END ==
LOC: M RAD 14:10
PROVIDERS: ATTEND Otolaryngology
DX: J32.4 Chronic pansinusitis (principal)

== ENCOUNTER 2019-12-14 07:26 | Inpatient (IN) | payer OTHER ==
[~2019-12-14] VITALS: Ht 185.4 cm; Wt 97.1 kg
[~2019-12-14 07:26] MED LIST changes: -ALLO10TA PO; -AMLO10TA PO; -FERR240T PO; -MINO2.5T PO; -NICO21DI9 TD; +NS 1,000 ML IV ONE; -RETA1000 IJ; -ROCA0.25 PO; -SIMV40TA20 PO; -TORS20TA2 PO
[2019-12-14] MEDS ORDERED: NICO21DI9 TD (08:08)
[2019-12-14] MEDS ORDERED: RETA1000 IJ (08:08)
[2019-12-14] MEDS ORDERED: FERR240T PO (08:08)
[2019-12-14] MEDS ORDERED: TORS20TA2 PO (08:08)
[2019-12-14] MEDS ORDERED: ROCA0.25 PO (08:08)
[2019-12-14] MEDS ORDERED: SIMV40TA20 PO (08:08)
[2019-12-14] MEDS ORDERED: ALLO10TA PO (08:08)
[2019-12-14] MEDS ORDERED: AMLO10TA PO (08:08)
[2019-12-14] MEDS ORDERED: MINO2.5T PO (08:08)
[2019-12-14] MEDS ORDERED: ONDANSETRON 4MG/2ML VIAL (J2405) As Ordered ONE (08:49)
[2019-12-14] MEDS ORDERED: propofoL 200 MG/20 ML VIAL As Ordered ONE (08:49)
[2019-12-14] MEDS ORDERED: LIDOCAINE 2% INJ 100 MG/5 ML SDV (FOR ANES.) As Ordered ONE (08:49)
[2019-12-14] MEDS ORDERED: dexameTHASONE 4 MG/ML 1ML VIAL (J1100) As Ordered ONE ×2 (08:49→11:22)
[2019-12-14] MEDS ORDERED: ROCURONIUM BROMIDE 50 MG/5 ML VIAL As Ordered ONE ×2 (08:49→10:37)
[2019-12-14] MEDS ORDERED: fentaNYL 250 MCG/5 ML INJECTION (J3010) As Ordered ONE (08:49)
[2019-12-14] MEDS ORDERED: MIDAZOLAM INJ 2 MG/2 ML VIAL (J2250) As Ordered ONE ×2 (08:50→11:43)
[2019-12-14] MEDS ORDERED: EPINEPHrine 1MG/ML INJ 30ML MD-VIAL As Ordered ONE (09:20)
[2019-12-14] MEDS ORDERED: LIDOCAINE W/EPINEPHRINE 1% 20ML VIAL As Ordered ONE (09:20)
[2019-12-14] MEDS ORDERED: METHYLENE BLUE 0.5% (5MG/ML) 10 ML AMP (PROVAYBLUE)(Q9968 PER 1MG) As Ordered ONE (09:20)
[2019-12-14] MEDS ORDERED: ePHEDrine SULFATE 25 MG/5 ML(5MG/ML) SYRINGE As Ordered ONE (10:26)
[2019-12-14] MEDS ORDERED: ACETAMINOPHEN 1000MG 100ML IV BTL (OFIRMEV) (J0131 PER 10MG) As Ordered ONE (11:02)
[2019-12-14] MEDS ORDERED: SUGAMMADEX SODIUM 500 MG/5 ML VIAL (BRIDION) As Ordered ONE (11:04)
[2019-12-14] MEDS ORDERED: BACITRACIN OINT 30GM As Ordered ONE (11:10)
[2019-12-14] MEDS ORDERED: fentaNYL 100 MCG/2 ML INJECTION (J3010) As Ordered ONE (11:30)
[2019-12-14] MEDS ORDERED: fentaNYL 100 MCG/2 ML INJECTION (J3010) IV PRN (12:15)
[2019-12-14] MEDS ORDERED: METOCLOPRAMIDE INJ 10MG/2ML VIAL (J2765) IV PRN (12:15)
[2019-12-14] MEDS ORDERED: ONDANSETRON 4MG/2ML VIAL (J2405) IV PRN (12:15)
[2019-12-14] MEDS ORDERED: PERCOCET 5MG/325MG TAB PO PRN (12:15)
[2019-12-14] MEDS ORDERED: MEPERIDINE INJ 25 MG/ML VIAL (J2175) IV PRN (12:15)
--- NOTE | 2019-12-14 14:47 | IPNPDOC ---
Date Seen The patient was seen on 12/14/19. Progress Note SUBJECTIVE: 64 y.o male w/ PMH of ESRD 2/2 renal calculi & hyperoxaluria s/p transplant, HTN & HLD is admitted s/p surgery for chronic sinusitis. Patient was found to have significant necrotic tissue & intraop biopsy shows malignant tissue. Patient is being admitted for observation with tentative planning for further surgery/management in [place] given biopsy results. Hospitalist service consulted for medical management. Patient received a renal transplant in 2005 by his , has done well, required temporary HD in 2018 due to CLARE. He is seen in PACU, without complaints at this time. He denies any SOB, CP, N/V/D or abdominal pain. 10 point review of system is negative except for above. OBJECTIVE PHYSICAL EXAMINATION: VITAL SIGNS: Please see below. GENERAL: no distress HEENT: surgical dressing in place, slightly bloody, moist mucus membranes CARDIOVASCULAR: S1, S2, no murmurs RESPIRATORY: Clear to auscultation ABDOMINAL: soft, non-tender, non-distended, +BS, surgical scars appreciated, no tenderness over transplanted kidney EXTREMITIES: ROM intact NEUROLOGICAL: no focal deficits PSYCHOLOGICAL: calm LABORATORY DATA, IMAGING STUDIES, MICROBIOLOGY: Please see below. ASSESSMENT AND PLAN: 64 y.o male w/ PMH of ESRD s/p transplant, HTN & HLD being admitted post op for sinus surgery. PROBLEMS: 1. ESRD s/p renal transplant - in 2005, follows with Dr. Erazo, last visit 2 w eeks ago, labs ordered, continue Tacrolimus, Mycophenalate, prednisone, calcitriol & torsemide. 2. HTN - continue Norvasc & Minoxidil 3. HLD - continue statin 4. s/p sinus surgery - intra-op biopsy concerning for malignancy, management as per primary team, awaiting follow up/transfer to [place] for further surgery/management. VS, I&O, 24H, Fishbone Vital Signs/I&O Vital Signs Date Time Temp Pulse Resp B/P (MAP) Pulse Ox O2 Delivery O2 Flow Rate FiO2 12/14/19 13:20 83 18 145/61 (89) 93 Comfort Flow 5 12/14/19 12:55 98.4 Laboratory Data CBC/BMP Laboratory Tests 12/14/19 07:51 SIOMARA PASTOR MD Dec 14, 2019 14:47
[2019-12-14 15:09] LABS: HEMOGLOBIN 9.5 g/dl (13.5-17.5); MEAN CORPUSCULAR HEMOGLOBIN 27.5 pg (27.0-33.0); MEAN CORPUSCULAR HGB CONC 30.6 g/dl (32.0-36.5); MEAN CORPUSCULAR VOLUME 89.6 fl (80.0-96.0); PLATELET COUNT, AUTOMATED 195 10^3/uL (150-450); RED BLOOD COUNT 3.46 10^6/uL (4.30-6.10); WHITE BLOOD COUNT 5.7 10^3/uL (4.0-10.0)
--- NOTE | 2019-12-14 15:09 | ECGEPIP ---
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
[2019-12-14 15:10] VITALS: BP 165/79
[2019-12-14 15:32] LABS: ALBUMIN 3.3 GM/DL (3.2-5.2); BILIRUBIN,TOTAL 0.3 MG/DL (0.2-1.0); CREATININE FOR GFR 4.55 MG/DL (0.70-1.30); GLOMERULAR FILTRATION RATE 13.9 (>49); POTASSIUM SERUM 4.1 MEQ/L (3.5-5.1); TOTAL PROTEIN 6.7 GM/DL (6.4-8.2)
[2019-12-14 15:40] VITALS: BP 167/85
[2019-12-14 17:00] VITALS: BP 118/81
[2019-12-14] MEDS: LR 1,000 ML IV SCH ×2 (17:41→22:15)
[2019-12-14 18:00] VITALS: BP 161/83
[2019-12-14 20:00] VITALS: BP 163/83
[2019-12-14] MEDS: MAGNESIUM OXIDE 400 MG TAB (MAG-OX) PO SCH (20:31)
[2019-12-14] MEDS: minoxidiL 2.5 MG TAB PO SCH (20:33)
[2019-12-14] MEDS: TACROLIMUS 1 MG CAP (J7507) PO SCH (20:34)
[2019-12-14] MEDS ORDERED: NON-FORMULARY 1 EA EA PO SCH (21:00)
[2019-12-14] MEDS ORDERED: TORSEMIDE 20 MG TAB PO SCH (21:30)
[2019-12-14 22:00] VITALS: BP 146/68
[2019-12-14] MEDS: FERROUS SULFATE 300MG/5ML UDC LIQUID PO SCH (22:55)
[2019-12-14] MEDS: NORCO, ANEXSIA 5/325MG TABLET (HYDROcodone/ACETAMINOPHEN) PO PRN (22:56)
[2019-12-15 00:27] VITALS: O2SAT 92
[2019-12-15 02:00] VITALS: BP 151/73
[2019-12-15 06:00] VITALS: BP 149/70
[2019-12-15 07:05] VITALS: O2SAT 94
[2019-12-15] MEDS: LR 1,000 ML IV SCH ×3 (07:38→13:15)
[2019-12-15 08:31] LABS: ALBUMIN 3.1 GM/DL (3.2-5.2); BLOOD UREA NITROGEN 83 MG/DL (7-18); CALCIUM LEVEL 8.2 MG/DL (8.8-10.2); CARBON DIOXIDE LEVEL 28 MEQ/L (21-32); CHLORIDE LEVEL 103 MEQ/L (98-107); GLOMERULAR FILTRATION RATE 15.2 (>49); GLUCOSE, FASTING 136 MG/DL (70-100); PHOSPHORUS LEVEL 4.3 MG/DL (2.5-4.9); POTASSIUM SERUM 4.3 MEQ/L (3.5-5.1); SODIUM LEVEL 139 MEQ/L (136-145)
[2019-12-15] MEDS: MAGNESIUM OXIDE 400 MG TAB (MAG-OX) PO SCH ×2 (09:16→20:45)
[2019-12-15] MEDS: amLODIPine 10 MG TAB PO SCH (09:17)
[2019-12-15] MEDS: FOLIC ACID 1 MG TAB PO SCH (09:17)
[2019-12-15] MEDS: FERROUS SULFATE 300MG/5ML UDC LIQUID PO SCH (09:17)
[2019-12-15] MEDS: PANTOPRAZOLE 40MG TAB (PROTONIX) PO SCH (09:17)
[2019-12-15] MEDS: predniSONE 5 MG TAB PO SCH (09:18)
[2019-12-15] MEDS: TACROLIMUS 1 MG CAP (J7507) PO SCH ×2 (09:18→20:45)
[2019-12-15] MEDS: minoxidiL 2.5 MG TAB PO SCH ×2 (09:18→20:47)
[2019-12-15] MEDS: PYRIDOXINE 50 MG TAB PO SCH ×2 (11:10→20:45)
[2019-12-15] MEDS: BICITRA 30ML SOLN UDC PO SCH ×2 (11:11→20:45)
--- NOTE | 2019-12-15 12:05 | IPNPDOC ---
Date Seen The patient was seen on 12/15/19. Progress Note SUBJECTIVE: 64 y.o male w/ PMH of ESRD 2/2 renal calculi & hyperoxaluria s/p transplant, HTN & HLD is admitted s/p surgery for chronic sinusitis. Patient was found to have significant necrotic tissue & intraop biopsy shows malignant tissue. Patient is being admitted for observation with tentative planning for further surgery/management in [place] given biopsy results. Hospitalist service consulted for medical management. Patient received a renal transplant in 2005 by his , has done well, required temporary HD in 2018 due to CLARE. He is seen in PACU, without complaints at this time. He denies any SOB, CP, N/V/D or abdominal pain. 12/15/19 Patient seen in the morning, no acute events overnight, without any complaints at this time, concerned about the surgical findings and further plan. 10 point review of system is negative except for above. OBJECTIVE PHYSICAL EXAMINATION: VITAL SIGNS: Please see below. GENERAL: no distress HEENT: Nasal packing has been removed, moist mucus membranes CARDIOVASCULAR: S1, S2, no murmurs RESPIRATORY: Clear to auscultation ABDOMINAL: soft, non-tender, non-distended, +BS, no tenderness over transplanted kidney EXTREMITIES: ROM intact, right upper extremity AV fistula noted NEUROLOGICAL: no focal deficits PSYCHOLOGICAL: calm LABORATORY DATA, IMAGING STUDIES, MICROBIOLOGY: Please see below. ASSESSMENT AND PLAN: 64 y.o male w/ PMH of ESRD s/p transplant, HTN & HLD being admitted post op for sinus surgery. PROBLEMS: 1. ESRD s/p renal transplant - in 2005, follows with Dr. Erazo, creatinine worsened from baseline, evaluated by nephrology, plan for hemodialysis, continue Tacrolimus, Mycophenalate, prednisone and calcitriol. 2. HTN - continue Norvasc & Minoxidil 3. HLD - continue statin 4. s/p sinus surgery - intra-op biopsy concerning for malignancy, management as per primary team, awaiting follow up/transfer to [place] for further surgery/management. VS, I&O, 24H, Fishbone Vital Signs/I&O Vital Signs Date Time Temp Pulse Resp B/P (MAP) Pulse Ox O2 Delivery O2 Flow Rate FiO2 12/15/19 09:17 84 149/70 12/15/19 07:05 94 Room Air 12/15/19 07:00 18 12/15/19 06:00 98.4 12/14/19 13:20 5 I&O- Last 24 Hours up to 6 AM 12/15/19 06:00 Intake Total 2500 ml Output Total 375 ml Balance 2125 ml Laboratory Data 24H LABS Laboratory Tests 2 12/14/19 14:36: Nucleated Red Blood Cells % (auto) 0.0, Anion Gap 7L, Glomerular Filtration Rate 13.9L, Calcium Level 9.0, Total Bilirubin 0.3, Aspartate Amino Transf (AST/SGOT) 14, Alanine Aminotransferase (ALT/SGPT) 22, Alkaline Phosphatase 107, Total Protein 6.7, Albumin 3.3, Albumin/Globulin Ratio 0.97L 12/15/19 07:38: 12/15/19 07:40: Anion Gap 8, Glomerular Filtration Rate 15.2L, Calcium Level 8.2L, Albumin 3.1L, Phosphorus Level 4.3 CBC/BMP Laboratory Tests 12/14/19 14:36 12/15/19 07:40 SIOMARA PASTOR MD Dec 15, 2019 12:05
[2019-12-15 12:15] LABS: CHOLESTEROL LEVEL 156 MG/DL (<200); CHOLESTEROL RISK RATIO 2.437 (<5); HDL CHOLESTEROL 64 MG/DL (>40); LDL CHOLESTEROL 79 MG/DL (<100); NON-HDL-C 92 MG/DL; TRIGLYCERIDES LEVEL 65 MG/DL (<150)
[2019-12-15 16:00] VITALS: BP 142/70
[2019-12-15] MEDS ORDERED: SIMVASTATIN 20 MG TAB PO SCH (21:00)
[2019-12-15 22:00] VITALS: BP 149/69
[2019-12-16] VITALS (8 sets, daily range): BP systolic 153–170; BP diastolic 62–80; O2SAT 96
[2019-12-16] MEDS: BICITRA 30ML SOLN UDC PO SCH (06:47)
[2019-12-16] MEDS: FERROUS SULFATE 300MG/5ML UDC LIQUID PO SCH (06:47)
[2019-12-16] MEDS: MAGNESIUM OXIDE 400 MG TAB (MAG-OX) PO SCH (06:47)
[2019-12-16] MEDS: PANTOPRAZOLE 40MG TAB (PROTONIX) PO SCH (06:48)
[2019-12-16] MEDS: minoxidiL 2.5 MG TAB PO SCH (06:50)
[2019-12-16] MEDS: PYRIDOXINE 50 MG TAB PO SCH (06:50)
[2019-12-16] MEDS: amLODIPine 10 MG TAB PO SCH (06:51)
[2019-12-16] MEDS: FOLIC ACID 1 MG TAB PO SCH (06:51)
[2019-12-16] MEDS: predniSONE 5 MG TAB PO SCH (06:51)
[2019-12-16] MEDS: TACROLIMUS 1 MG CAP (J7507) PO SCH (06:51)
[2019-12-16 06:59] LABS: HEMATOCRIT 24.4 % (42.0-52.0); MEAN CORPUSCULAR HEMOGLOBIN 27.8 pg (27.0-33.0); MEAN CORPUSCULAR HGB CONC 30.7 g/dl (32.0-36.5); MEAN CORPUSCULAR VOLUME 90.4 fl (80.0-96.0); PLATELET COUNT, AUTOMATED 164 10^3/uL (150-450); WHITE BLOOD COUNT 7.1 10^3/uL (4.0-10.0)
[2019-12-16 07:10] LABS: HEMOGLOBIN 7.5 g/dl (13.5-17.5)
[2019-12-16 07:23] LABS: CALCIUM LEVEL 8.6 MG/DL (8.8-10.2); CREATININE FOR GFR 3.13 MG/DL (0.70-1.30); GLOMERULAR FILTRATION RATE 21.3 (>49); MAGNESIUM LEVEL 2.4 MG/DL (1.8-2.4); PHOSPHORUS LEVEL 3.2 MG/DL (2.5-4.9); POTASSIUM SERUM 4.2 MEQ/L (3.5-5.1)
--- NOTE | 2019-12-16 07:26 | CR ---
DATE OF CONSULTATION: 12/15/2019 REQUESTING PHYSICIAN: Dr. Felix CONSULTING PHYSICIAN: Dr. Lewis REASON FOR CONSULTATION: Management of acute renal failure superimposed on chronic kidney disease stage IV in this patient with renal allograft status. CHIEF COMPLAINT The patient was admitted to the hospital for observation after his right-sided maxillary sinus surgery. HISTORY OF PRESENT ILLNESS: Mr. Jamil Lees is a 64-year-old male with past medical history of end-stage renal disease secondary to hyperoxaluria and renal calculi. He is status post renal transplant, history of end-stage renal disease secondary to kidney stones and primary hyperoxaluria status post live unrelated kidney transplant in 2005. The kidney was donated by his , history of hypertension and other comorbidities as mentioned below. The patient was being seen by ENT because of unresolving right-sided maxillary sinusitis. He finally underwent right-sided maxillary sinus surgery by ENT yesterday and during the surgery a mass was seen which was biopsied. Frozen section of the mass came back as possible malignancy; nature of the cancer is not known. The patient was kept under observation under the hospitalist service overnight. Patient's baseline creatinine is 3.8 as of labs done about 5 days ago in nephrology office. He has a baseline CKD stage IV. His creatinine on arrival was 4.5. Because of the worsening renal function in this patient with renal allograft status, nephrology service was called for further help in the management of this patient. Of note, patient does have history of acute renal failure in 2017 requiring hemodialysis and renal function improved after a few sessions of hemodialysis. I saw and evaluated the patient at the bedside today morning. He is afebrile, hemodynamically stable. He denies any bleeding from the surgical site from the right-sided nostril. He denies any chest pain, shortness of breath or lower extremity edema. There is no significant improvement in the renal function despite IV fluid hydration and stopping his diuretics. His creatinine today morning is 4.2. PAST MEDICAL HISTORY End-stage renal disease secondary to primary hyperoxaluria. History of live unrelated kidney transplant 2005. Hypertension. Prostate cancer, status post surgery. Chronic kidney disease stage IV with a baseline creatinine of 3.8 as of the latest labs. Hyperlipidemia. PAST SURGICAL HISTORY Live unrelated kidney transplant 2005 donated by his . History of prostatectomy in 2007. Right-sided maxillary sinus surgery which was done yesterday. ALLERGIES NO KNOWN DRUG ALLERGIES. FAMILY HISTORY No significant family history of end-stage renal disease requiring hemodialysis. SOCIAL HISTORY The patient lives at home. He denies any smoking, illicit drug abuse or alcohol abuse. 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 REVIEW OF SYSTEMS Constitutional: He denies any fevers and chills. Eyes: He denies any blurry vision, double vision. He does report bulging of the right eye because of the mass in the right sinus. ENT: Denies any dysphagia, odynophagia. He does report right-sided sinus surgery. Cardiovascular: Denies any chest pain or palpitation. Respiratory: Denies any shortness of breath or cough. GI: Denies any nausea, vomiting. Genitourinary: He denies any dysuria or hematuria. Musculoskeletal: He denies any muscle aches and pains. Skin: He denies any rashes or ulcers. Endocrine: He denies any history of hyperthyroidism, hypothyroidism or diabetes. Psych: He denies any depression or anxiety. 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 Hematology/Oncology: He denies any easy bleeding or bruising. All other review of systems is negative. PHYSICAL EXAMINATION General: The patient is awake, alert, oriented times three, laying in bed. No apparent distress. Vital signs: Temperature is 98.2 degrees Fahrenheit, blood pressure 142/70, pulse is 84, respiratory rate of 20, saturating 96% on room air. Intake and output: Urine output recorded since overnight is 300 mL. Weight in the bed scale is 97 mL. Head and neck exam: Extraocular muscles intact. Right eye has slight bulging as compared with the left. There is some dried blood in the right-sided nostril. Mucous membranes are moist. Neck is supple. There is no JVD. Cardiovascular: S1, S2, regular rate. Trace edema of the bilateral lower extremities. Respiratory: Chest is clear to auscultation bilaterally. Bilateral equal air entry. No rales or rhonchi. Abdomen: Soft, positive bowel sounds. Right lower quadrant renal allograft with no tenderness. Old suprapubic surgical scar is also noted. Musculoskeletal: No clubbing or cyanosis. Pulses are 2+. He has a right forearm AV fistula with positive thrill and bruit. HVAC SERVICE TECHNICIAN: No focal deficit. Power is 5/5 in all extremities. LAB REVIEW: CBC showed a WBC 5.7, hemoglobin 9.5, platelets of 195. BMP showed sodium 139, potassium 4.3, chloride 103, bicarb 28, BUN 83, creatinine is 4.2, calcium is 8.2, albumin 3.1, plasma oxylate level is pending. Hepatitis B and C serologies pending. IMAGING STUDIES Facial MRI was done yesterday. There is mass occupying the right maxillary sinus. Official report is still pending. CURRENT INPATIENT MEDICATIONS The patient's medications were all reviewed by me. He was getting IV Ringer's lactate which has been stopped. He is on [place] as needed (p.r.n.), amlodipine 10 mg daily. I have started the patient on Bicitra 15 mL by mouth twice a day, iron tablet 300 mg by mouth daily, folic acid 1 mg by mouth daily, magnesium oxide 400 mg by mouth twice a day, minoxidil 2.5 mg by mouth twice a day, Protonix 40 mg by mouth daily, prednisone 5 mg by mouth daily. I have started the patient on vitamin B6 100 mg by mouth twice a day, simvastatin 20 mg at bedtime. He is on tacrolimus 1 gram by mouth twice a day. He was on torsemide 20 mg by mouth twice a day which was stopped yesterday. ASSESSMENT 64 year-old male with history of chronic kidney disease stage IV with history of renal allograft status and renal failure secondary to hyperoxaluria, hypertension, hyperlipidemia admitted this time after right-sided maxillary sinus surgery with frozen section concerning for malignancy. The patient has acute renal failure superimposed on chronic kidney disease stage IV. PLAN 1. Acute kidney injury superimposed on chronic kidney disease stage IV. Patient's baseline creatinine as outpatient was 3.8. Renal allograft function was slowly deteriorating as outpatient as well. However acutely the patient is in renal failure. Although the patient does not have any signs or symptoms of uremia or fluid overload, given his history of hyperoxaluria and history of renal failure requiring dialysis in the past that responded to hemodialysis, I have a low threshold to start the patient on hemodialysis. He has a working right forearm AV fistula. I am going to start the patient on dialysis. Treatment of hyperoxaluria as mentioned below. Continue to hold the diuretics at this time. No need of IV fluid hydration at this time. 2. Hyperoxaluria. Serum oxalate levels have been sent, but they are not available at this time. The patient has been started on Bicitra 15 mL by mouth twice a day, magnesium oxide 400 mg by mouth twice a day along with vitamin B6 100 mg by mouth twice a day. I would increase the dose to a total of 250 mg by mouth daily tomorrow morning. Hemodialysis would also help improve the oxalate level in the blood and help improve the renal function. 3. Hypertension. Blood pressure is acceptable. Stop the IV fluids. Continue amlodipine 10 mg daily, minoxidil 2.5 mg by mouth twice a day. 4. Renal allograft status. The patient's allograft function has deteriorated. Some of that is most likely because of high hyperoxaluria. Treatment of hyperoxaluria as mentioned above. Continue the home immunosuppression including tacrolimus, Myfortic and prednisone. 5. Anemia and chronic kidney disease. Hemoglobin level is 9.5. I am going to check the iron levels and start the patient on Venofer during dialysis if needed and he will also be started on Aranesp. 6. 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 The patient got the sinus surgery done yesterday by ENT. Frozen section was concerning for malignancy. The patient is being referred by ENT for further surgical intervention at [facility]. He is going to have a PET scan done as outpatient after discharge from the hospital. Thank you for involving me in the care of this patient. I shall be happy to follow the patient along with you tomorrow morning.
[2019-12-16 08:41] LABS: PERCENT SATURATION 26.1 % (19.7-50.0)
[2019-12-16] MEDS ORDERED: FUROSEMIDE 100 MG/10 ML VIAL (J1940) IV ONE (11:30)
[2019-12-16] MEDS ORDERED: SIMV40TA20 PO (14:22)
[2019-12-16] MEDS: NORCO, ANEXSIA 5/325MG TABLET (HYDROcodone/ACETAMINOPHEN) PO PRN (16:06)
--- NOTE | 2019-12-16 16:58 | DS.PDOC ---
Discharge Summary General Date of Admission Dec 14, 2019 Date of Discharge 12/16/19 Discharge Summary PROCEDURES PERFORMED DURING STAY: R Nasal polypectomy & biopsy ADMITTING DIAGNOSES: 1. Anemia, chronic sinusitis, CLARE/CKD DISCHARGE DIAGNOSES: 1. Anemia, chronic sinusitis, CLARE/CKD COMPLICATIONS/CHIEF COMPLAINT: Chronic Sinusitis. HISTORY OF PRESENT ILLNESS: 64 y.o male w/ PMH of ESRD s/p transplant was admitted post op after undergoing R nasal polypectomy & biopsy which was concerning for malignancy. Patient found to have CLARE on CKD, evaluated by Nephrology, underwent one session of HD via pre-existing AV fistula with return of creatinine to baseline. Patient also with anemia, likely due to blood loss from surgery with underlying chronic anemia due to renal insufficiency. He has received 1 unit of PRBC today and cleared for discharge from Nephrology. Patient will follow outpatient with Dr. Erazo for further monitoring & management of renal function. Patient will undergo PET/CT for further evaluation of newly found malignancy along with follow up at [place] next week for further surg ical options. Patient is clinically and hemodynamically stable for discharge and outpatient follow up. HOSPITAL COURSE: As above DISCHARGE MEDICATIONS: Please see below. ALLERGIES: Please see below. OBJECTIVE PHYSICAL EXAMINATION: VITAL SIGNS: Please see below. GENERAL: no distress HEENT: scant amount of in the R nostril, moist mucus membranes CARDIOVASCULAR: S1, S2, no murmurs RESPIRATORY: Clear to auscultation ABDOMINAL: soft, non-tender, non-distended, +BS, no tenderness over transplanted kidney EXTREMITIES: ROM intact, right upper extremity AV fistula noted NEUROLOGICAL: no focal deficits PSYCHOLOGICAL: calm LABORATORY DATA: Please see below. PROGNOSIS: Guarded ACTIVITY: As tolerated DIET: Cardiac DISCHARGE PLAN: f/u with Nephrology, ENT & PCP in 1-2 weeks DISPOSITION: 01 Home, Self-Care. DISCHARGE INSTRUCTIONS: 1. As above DISCHARGE CONDITION: Stable TIME SPENT ON DISCHARGE: Greater than 32 minutes. Vital Signs/I&Os Vital Signs Date Time Temp Pulse Resp B/P (MAP) Pulse Ox O2 Delivery O2 Flow Rate FiO2 12/16/19 16:06 18 12/16/19 15:07 98.2 82 156/62 96 Room Air 12/14/19 13:20 5 I&O- Last 24 Hours up to 6 AM 12/16/19 06:00 Intake Total 2240 ml Output Total 0 ml Balance 2240 ml Laboratory Data Labs 24H Laboratory Tests 2 12/16/19 06:27: Nucleated Red Blood Cells % (auto) 0.0, Anion Gap 6L, Glomerular Filtration Rate 21.3L, Calcium Level 8.6L, Phosphorus Level 3.2#, Magnesium Level 2.4, Iron Level 61L, Total Iron Binding Capacity 234L, Transferrin % Saturation 26.1, Ferritin 187 CBC/BMP Laboratory Tests 12/16/19 06:27 Discharge Medications Scheduled Allopurinol (Allopurinol) 100 Mg Tablet, 300 MG PO DAILY, (Reported) Amlodipine Besylate (Norvasc) 10 Mg Tablet, 10 MG PO DAILY, (Reported) Calcitriol (Rocaltrol) 0.25 Mcg Capsule, 0.25 MCG PO DAILY, (Reported) Epoetin Manolo-Epbx (Retacrit) 10,000 Unit/1 Ml Vial, 10,000 UNIT IJ Q2WK, (Reported) Ferrous Gluconate (Ferrous Gluconate) 240 Mg Tablet, 240 MG PO BID, (Reported) Folic Acid (Folic Acid) 1 Mg Tab, 1 MG PO DAILY, (Reported) Magnesium Oxide (Magnesium Oxide) 400 Mg Tab, 400 MG PO BID Minoxidil (Minoxidil) 2.5 Mg Tablet, 2.5 MG PO BID, (Reported) Mycophenolate Sodium (Myfortic) 360 Mg Tab, 360 MG PO BID, (Reported) Nicotine (Nicotine Patch) 21 Mg/24 Hr Patch.td24, 21 MG TD DAILY, (Reported) Pantoprazole Sodium (Pantoprazole Sodium) 40 Mg Tab, 40 MG PO DAILY, (Reported) Prednisone (Prednisone) 5 Mg Tab, 5 MG PO DAILY, (Reported) Pyridoxine HCl (Vitamin B6) (Vitamin B-6) 250 Mg Tab, 250 MG PO DAILY, (Reported) Simvastatin (Simvastatin) 40 Mg Tablet, 20 MG PO DAILY Tacrolimus (Prograf) 1 Mg Cap, 1 MG PO BID, (Reported) Torsemide (Torsemide) 20 Mg Tablet, 20 MG PO BID, (Reported) [Citric Acid/Sodium Citrate] 30 ML SOLN, 15 ML PO BID Allergies Coded Allergies: No Known Allergies (Verified , 12/14/19) SIOMARA PASTOR MD Dec 16, 2019 16:58
--- NOTE | 2019-12-16 20:19 | IPN ---
DATE: 12/16/2019 Mr. Lees is seen this morning on his bedside. He had surgery of his chronic right nasal obstruction. He was found to have polyps which were removed and he developed significant bleeding. A frozen section of the mass was consistent with malignancy and the patient has been informed about that by ENT surgeon. Due to massive bleeding from the nose, he had partial dialysis yesterday as it was felt that his breathing might be related to uremia as he does have advanced chronic kidney disease with failing kidney transplant. Plan is to get a PET scan done and then he is going to go to [place] for a second opinion and possible surgery. As an outpatient, his blood pressure has been quite elevated for the last couple of months and required multiple medication adjustments. He had significant leg edema which has now improved with aggressive diuresis. He denies any dyspnea, chest pain, nausea or vomiting today. PHYSICAL EXAMINATION: Temperature 98 degrees Fahrenheit, heart rate 80 per minute and respiratory rate 18 per minute. Blood pressure 156/73 mmHg and oxygen saturation 96% on room air. Head is atraumatic. There is mild bleeding at the right nostril but no active bleeding at present. There is no oral thrush or ulcers. Neck veins are about 9 cm above sternal angle. Lungs sound clear to auscultation and heart sounds are regular without a pericardial friction rub. Abdomen soft and nontender and bowel sounds are normal. Extremities without any cyanosis or clubbing. His AV fistula is patent. Neurologically he is awake, alert and oriented times three. Today's labs show WBC count 7.1, hemoglobin 7.5 and hematocrit 24.4. Platelets 164. Sodium 141, potassium 4.2, CO2 29, BUN 60 and creatinine 3.12. Glucose is 92 and calcium 8.6. Iron level 61 and saturation 26%. PROBLEMS: 1. Acute blood loss anemia. The patient had significant bleeding from his nasal mass after surgery and has dropped his hematocrit. He will be given 1 unit of packed RBCs today. I have discussed with the patient about need for transfusion and he consented. 2. Chronic renal failure. The patient has stage IV or early stage V of chronic kidney disease with a failing kidney transplant. He had partial dialysis yesterday due to clotting of the system. Dialysis was terminated early. Heparin was not used due to bleeding. In any event, at this point there is no emergent need for further dialysis and we will let him go home today. He will be followed up in the office next week. 3. Kidney transplant status. The patient has a gradual decline in his transplant kidney function and immunosuppression is appropriate. He will continue with current therapy. 4. Hypertension. Blood pressure has been somewhat on the high side. He is mildly volume overloaded again and we will give him one dose of intravenous Lasix 100 mg before transfusion. He will continue with outpatient chronic antihypertensive medications and diuretic. The patient will followup in the office next week. 5. Nasal mass. He has known history of right nasal obstruction due to which he had surgery done on Tuesday and in addition to polyps he was noticed to have a mass which is most likely consistent with malignancy and he is going to have a PET scan done during next week and then go to [place] for further evaluation for more surgery. DISPOSITION: From a renal standpoint, the patient can be discharged to home today after transfusion. We will followup in the office next week.
[2019-12-17 09:38] LABS: HEPATITIS B SURFACE ANTIBODY NEGATIVE (POSITIVE)
[2019-12-17 09:41] LABS: HEPATITIS B SURFACE ANTIGEN NEGATIVE (NEGATIVE)
[2019-12-17 10:08] LABS: HEPATITIS C VIRUS ABY INDEX < 0.0 INDEX (<0.8)
[2019-12-17 10:09] LABS: HEPATITIS B CORE ANTIBODY IGM NEGATIVE (NEGATIVE)
--- NOTE | 2019-12-17 14:57 | REPVR ---
PROCEDURE INFORMATION: Exam: MR Neck Without Contrast Exam date and time: 12/14/2019 3:56 PM Age: 64 years old Clinical indication: Condition or disease; Other: Sinus mass; Sinusitis; Prior surgery; Surgery date: Post-operative (0-2 days); Surgery type: Sinus SX to remove mass on RT side 1300 12/14/2019; Patient HX: Chronic sinus issues, pain bleeding, PT is 9 hours S/P SX to remove mass, unable to give contrast due to renal failure; Additional info: Cancer of sinus TECHNIQUE: Imaging protocol: MR images of the neck without intravenous contrast. COMPARISON: CT BRAIN LAB SINUSES 12/12/2019 2:22 PM FINDINGS: There is susceptibility artifact which obscures portions of the right face. Severe paranasal sinus disease including opacified right maxillary sinus. There is soft tissue mass centered at the right ethmoid air cells measuring 4.5 cm AP by 2.6 centimetres transverse by 3.5 cm cc. The inferior aspect of this mass is obscured by artifact. Extension to the right nasal cavity, poorly evaluated. Mass extends to the cribriform plate. Mass extends to the medial right orbital extraconal space with lateral displacement of the medial rectus muscle. Associated right-sided proptosis. No definite drainable fluid collection to the degree visualized. IMPRESSION: 1. Study is limited by susceptibility artifact obscuring the right facial soft tissues. 2. Soft tissue mass centered at the right ethmoid air cells invading the medial right orbital extraconal space causing right-sided proptosis. Extension to the nasal cavity. This is incompletely evaluated secondary to artifact. 3. Severe paranasal sinus disease. 4. No definite acute abnormality involving the regional soft tissues to the degree visualized. Electronically signed by: Kody Julio On 12/14/2019 22:24:19 PM
--- NOTE | 2019-12-17 23:01 | RO ---
DATE OF PROCEDURE: 12/16/2019 PREOPERATIVE DIAGNOSIS: Chronic sinusitis. POSTOPERATIVE DIAGNOSIS: Tumor sinuses. PROCEDURE: Polypectomy, biopsy nose and nasal packing. SURGEON: Dr. Jarrett Waldrop SKI TOP TRIMMER: ANESTHESIA: FINDINGS: There was a necrotic friable tumor inside the nose. I did a number of biopsies. There was bleeding and so, as a result, I packed his nose with Vaseline gauze. Approximately 75 mL estimated blood loss. The patient tolerated the procedure well, was extubated and transferred to the recovery room in excellent condition. The findings prior to the surgery were that on the CT scan there was invasion into the orbit, opacification of the frontal, maxillary sinus, ethmoid sinus, as well as polypoid tissue within the nose.
== END 2019-12-16 16:20 | disposition home or self-care (01) | DRG 147 ==
LOC: M SDC 07:26 → M MS5PR 14:25 → M SDC 14:33 → M MS5PR 14:34 → OBSVTOIN 12-16 10:34
PROVIDERS: ADMIT Otolaryngology; ATTEND Internal Medicine
PROC: 2Y41X5Z Packing of Nasal Region using Packing Material (ICD-10-PCS; 2019-12-14)
PROC: 09BK0ZX Excision of Nasal Mucosa and Soft Tissue, Open Approach, Diagnostic (ICD-10-PCS; principal; 2019-12-14 09:00)
PROC: 5A1D70Z Performance of Urinary Filtration, Intermittent, Less than 6 Hours Per Day (ICD-10-PCS; 2019-12-15)
PROC: 30233N1 Transfusion of Nonautologous Red Blood Cells into Peripheral Vein, Percutaneous Approach (ICD-10-PCS; 2019-12-16)
DX: C31.9 Malignant neoplasm of accessory sinus, unspecified (principal); Z94.0 Kidney transplant status; N17.9 Acute kidney failure, unspecified; N18.5 Chronic kidney disease, stage 5; D62 Acute posthemorrhagic anemia; I12.0 Hypertensive chronic kidney disease with stage 5 chronic kidney disease or end stage renal disease; J33.8 Other polyp of sinus; R82.992 Hyperoxaluria; D63.1 Anemia in chronic kidney disease; E78.5 Hyperlipidemia, unspecified; Z85.46 Personal history of malignant neoplasm of prostate

== ENCOUNTER 2020-01-04 02:23 | Emergency (ER) | payer OTHER ==
[~2020-01-04] VITALS: Ht 182.9 cm; Wt 95.8 kg
[~2020-01-04 02:23] MED LIST changes: +ALLO10TA PO; +AMLO10TA PO; +FERR240T PO; +MINO2.5T PO; +NICO21DI9 TD; -NS 1,000 ML IV ONE; +RETA1000 IJ; +ROCA0.25 PO; +SIMV40TA20 PO; +TORS20TA2 PO
[2020-01-04] MEDS ORDERED: PROG1CAP2 PO (02:33)
[2020-01-04] MEDS ORDERED: POTA540T PO (02:33)
[2020-01-04] MEDS ORDERED: CETI10CH PO (02:33)
[2020-01-04] MEDS ORDERED: TETRACAINE 0.5% OPHTH SOLN 4ML OU ONE (03:15)
[2020-01-04] MEDS ORDERED: MORPHINE 4 MG/ML 1ML VIAL/SYRINGE (J2270) IV PRN (03:15)
[2020-01-04] MEDS ORDERED: ONDANSETRON 4MG/2ML VIAL (J2405) IV ONE (03:15)
[2020-01-04 03:54] LABS: BASO % 0.1 % (0.0-1.0); EOS % 0.1 % (0.0-3.0); HEMATOCRIT 32.7 % (42.0-52.0); HEMOGLOBIN 10.1 g/dl (13.5-17.5); LYMPH # 0.3 10^3/uL (1.5-5.0); LYMPH % 3.6 % (24.0-44.0); MEAN CORPUSCULAR HEMOGLOBIN 27.9 pg (27.0-33.0); MEAN CORPUSCULAR HGB CONC 30.9 g/dl (32.0-36.5); MEAN CORPUSCULAR VOLUME 90.3 fl (80.0-96.0); MONO # 0.4 10^3/uL (0.0-0.8); MONO % 4.8 % (0.0-5.0); NEUTROPHILS # 8.1 10^3/uL (1.5-8.5); NEUTROPHILS % 91.1 % (36.0-66.0); PLATELET COUNT, AUTOMATED 172 10^3/uL (150-450); RED BLOOD COUNT 3.62 10^6/uL (4.30-6.10); WHITE BLOOD COUNT 8.8 10^3/uL (4.0-10.0)
--- NOTE | 2020-01-04 03:57 | REPVR ---
PROCEDURE INFORMATION: Exam: CT Maxillofacial Without Contrast Exam date and time: 01/04/2020 3:12 AM Age: 64 years old Clinical indication: Ocular pain; Right; Patient HX: Known tumor maxilla facial; Additional info: HX of sinus melanoma, severe right eye pain TECHNIQUE: Imaging protocol: Computed tomography images of the face without contrast. Radiation optimization: All CT scans at this facility use at least one of these dose optimization techniques: automated exposure control; mA and/or kV adjustment per patient size (includes targeted exams where dose is matched to clinical indication); or iterative reconstruction. COMPARISON: CT BRAIN LAB SINUSES 12/12/2019 2:22 PM FINDINGS: Again demonstrated is a destructive infiltrative mass in the right nasal cavity eroding through the right lamina papyracea into the medial right orbit. The mass has increased in size since the prior exam. Intraorbital component measures approximately 3.5 x 1.5 cm (previously 2.7 x 0.8 cm). Additional larger component of the mass completely obstructs the right nasal cavity similar to the prior exam. Medial wall of the right maxillary sinus and nasal septum are eroded. Nasal septum is deviated to the left. Right maxillary sinus is completely opacified and obstructed. Mucosal thickening elsewhere in the ethmoid air cells. Mild mucosal thickening in the left maxillary sinus. Frontal sinuses are near completely opacified. The cribriform plate is also demineralized. Worsening proptosis of the right globe with increasing mass effect on the right medial rectus muscle. The left orbit and globe are unremarkable. No layering fluid in the paranasal sinuses. Mastoid air cells are clear. No fractures are seen. IMPRESSION: 1. Increasing size of mass in the right nasal cavity extending into the right orbit. 2. Increasing right orbital proptosis. 3. Chronic sinusitis. Electronically signed by: Sterling Padgett On 01/04/2020 03:57:27 AM
[2020-01-04 05:45] VITALS: BP 161/78
== END 2020-01-04 06:48 | disposition short-term general hospital (02) ==
LOC: M ED 02:23
DX: H40.211 Acute angle-closure glaucoma, right eye (principal); J32.9 Chronic sinusitis, unspecified; C43.31 Malignant melanoma of nose; C61 Malignant neoplasm of prostate; Z79.52 Long term (current) use of systemic steroids; Z79.899 Other long term (current) drug therapy; Z94.0 Kidney transplant status
CPT/HCPCS: 70486; 80047; 85025; 86140; 96374; 96375; 99285; J2270; J2405

== ENCOUNTER → 2020-01-11 | Outpatient (REF) | payer OTHER ==
[~2020-01-11] MED LIST changes: +CETI10CH PO; +POTA540T PO
[2020-01-11 13:58] LABS: BASO % 0.1 % (0.0-1.0); EOS # 0.1 10^3/uL (0.0-0.5); EOS % 0.7 % (0.0-3.0); HEMATOCRIT 32.5 % (42.0-52.0); HEMOGLOBIN 10.3 g/dl (13.5-17.5); LYMPH # 0.8 10^3/uL (1.5-5.0); LYMPH % 12.1 % (24.0-44.0); MEAN CORPUSCULAR HEMOGLOBIN 28.1 pg (27.0-33.0); MEAN CORPUSCULAR HGB CONC 31.7 g/dl (32.0-36.5); MEAN CORPUSCULAR VOLUME 88.8 fl (80.0-96.0); MONO # 0.3 10^3/uL (0.0-0.8); MONO % 4.2 % (0.0-5.0); NEUTROPHILS # 5.5 10^3/uL (1.5-8.5); NEUTROPHILS % 82.3 % (36.0-66.0); PLATELET COUNT, AUTOMATED 163 10^3/uL (150-450); RED BLOOD COUNT 3.66 10^6/uL (4.30-6.10); WHITE BLOOD COUNT 6.7 10^3/uL (4.0-10.0)
[2020-01-11 14:16] LABS: BILIRUBIN,TOTAL 0.4 MG/DL (0.2-1.0); CALCIUM LEVEL 8.9 MG/DL (8.8-10.2); CREATININE FOR GFR 4.33 MG/DL (0.70-1.30); FREE T4 0.97 NG/DL (0.76-1.46); GLOMERULAR FILTRATION RATE 14.7 (>49); POTASSIUM SERUM 3.1 MEQ/L (3.5-5.1); THYROID STIMULATING HORMONE 0.504 uIU/ML (0.358-3.740); TOTAL PROTEIN 6.2 GM/DL (6.4-8.2)
== END ==
LOC: M LAB REF 13:14
PROVIDERS: ATTEND Nurse Practitioner
DX: C43.31 Malignant melanoma of nose (principal); Z51.81 Encounter for therapeutic drug level monitoring; Z79.899 Other long term (current) drug therapy

== ENCOUNTER → 2020-02-12 | Outpatient (REF) | payer OTHER ==
[~2020-02-12] MED LIST changes: +PROG1CAP11 PO; -PROG1CAP2 PO
[2020-02-12 19:27] LABS: ALBUMIN 2.8 GM/DL (3.2-5.2); BILIRUBIN,DIRECT 0.1 MG/DL (0.0-0.2); BILIRUBIN,TOTAL 0.4 MG/DL (0.2-1.0)
== END ==
LOC: M LAB REF 16:38
PROVIDERS: ATTEND Internal Medicine Nephrology
DX: R94.5 Abnormal results of liver function studies (principal)

== ENCOUNTER 2020-02-29 12:56 | Emergency (ER) | payer OTHER ==
[~2020-02-29] VITALS: Ht 180.3 cm; Wt 102.6 kg
[2020-02-29] MEDS ORDERED: HYDR-4571 (13:22)
[2020-02-29] MEDS ORDERED: MORPHINE 4 MG/ML 1ML VIAL/SYRINGE (J2270) IV ONE (13:45)
[2020-02-29 14:08] LABS: BASO % 0.3 % (0.0-1.0); EOS % 0.1 % (0.0-3.0); HEMATOCRIT 28.6 % (42.0-52.0); HEMOGLOBIN 9.1 g/dl (13.5-17.5); LYMPH # 0.4 10^3/uL (1.5-5.0); LYMPH % 5.9 % (24.0-44.0); MEAN CORPUSCULAR HGB CONC 31.8 g/dl (32.0-36.5); MEAN CORPUSCULAR VOLUME 91.1 fl (80.0-96.0); MONO # 0.3 10^3/uL (0.0-0.8); MONO % 3.9 % (0.0-5.0); NEUTROPHILS # 6.2 10^3/uL (1.5-8.5); NEUTROPHILS % 89.2 % (36.0-66.0); PLATELET COUNT, AUTOMATED 154 10^3/uL (150-450); RED BLOOD COUNT 3.14 10^6/uL (4.30-6.10); WHITE BLOOD COUNT 6.9 10^3/uL (4.0-10.0)
[2020-02-29 14:26] LABS: INR 1.03; PARTIAL THROMBOPLASTIN TIME 37.7 SECONDS (25.0-38.4); PROTHROMBIN TIME 13.2 SECONDS (11.8-14.0)
[2020-02-29 14:35] LABS: CALCIUM LEVEL 7.1 MG/DL (8.8-10.2); CK-MB VALUE MASS 2.4 NG/ML (<3.6); CREATININE FOR GFR 3.71 MG/DL (0.70-1.30); GLOMERULAR FILTRATION RATE 17.5 (>49); MB/CK RELATIVE INDEX 1.92 (< OR =4); POTASSIUM SERUM 4.1 MEQ/L (3.5-5.1); TROPONIN I 0.03 NG/ML (< 0.10)
--- NOTE | 2020-02-29 14:45 | REP ---
REASON: Sudden onset of head pain. The ventricles and sulci are within normal limits. There are no extra-axial fluid collections. There is no shift of the midline structures. The deep cerebral white matter is within normal limits. The sella turcica, cavernous, and paracavernous structures are within normal limits. The cerebellopontine angle and posterior fossa are within normal limits. There is soft tissue density which fills the imaged portion of the right maxillary sinus along with soft tissue densities filling or nearly filling the ethmoid bulla on the right and seen in a patchy appearance throughout the left ethmoid bulla. The mastoid air cells are clear. IMPRESSION: 1. No acute intracranial pathology. 2. Paranasal sinus mucosal thickening, correlate clinically. Electronically Signed by Errol Renteria DO 02/29/2020 02:50 P
[2020-02-29] MEDS ORDERED: HYDROMORPHONE HCL 0.5 MG/ 0.5 ML SYRINGE (J1170 PER 1) IV ONE ×3 (15:00→20:00)
--- NOTE | 2020-02-29 15:14 | REP ---
CT STUDY OF THE CERVICAL SPINE WITHOUT CONTRAST: HISTORY: Neck pain radiating down both arms. No comparison CT study. 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 TECHNIQUE: Helical scanning is acquired and overlapping 2 mm high resolution axial images were generated and reviewed at bone and soft tissue window settings. Coronal and sagittal multiplanar re-formations images are generated. CT FINDINGS: There is no evidence of cervical spine element fracture. No skull base fracture is seen. Cervical vertebral body heights are preserved. Alignment is normal. There is reversal of the normal cervical lordosis. Advanced degenerative disc disease is seen at C5-6 and C6-7 with posterior osteophytic ridging at these levels. There is a degenerative 3 mm anterior subluxation of C4 on C5. There is osteoarthritic facet disease on the left at C4-5 and to a lesser extent C5-6. There is mottled density within the anterior vertebral body of the second thoracic level mixed lytic and sclerotic. This is of uncertain significance. There is anterior discogenic spurring at the T1-T2 and these changes could be reactive. A benign hemangioma could have this appearance as well. It is not typical of a lytic metastatic lesion. There are benign cystic changes in the base of the dens. There is osteoarthritis at the C1-C2 articulation. IMPRESSION: Degenerative spondylosis changes. 3 mm anterior subluxation of C4 on C5. Mottled mixed lytic and sclerotic density lesion in the 2nd thoracic vertebral body most likely benign hemangioma. Difficult to completely exclude metastatic disease. No evidence of intraspinal or paraspinal mass lesion. Opacified right maxillary sinus. History of paranasal sinus melanoma. Electronically Signed by Juan Carlos Jimenez MD 02/29/2020 04:17 P
[2020-02-29] MEDS ORDERED: NS 1,000 ML IV ONE (15:15)
--- NOTE | 2020-02-29 15:45 | ECGEPIP ---
[facility] - ED Test Date: 2020-02-29 Pat Name: MOISÉS BISHOP Department: Room: - Gender: Male Dry Sander: : 1955 Requested By: JUAN YUANP Order Number: [id number] Reading MD: Kathleen Woodward Measurements Intervals [place] Rate: 94 P: 27 PA: 190 QRS: -4 QRSD: 118 T: 39 QT: 369 QTc: 464 Interpretive Statements SINUS RHYTHM WITH OCCASIONAL VENTRICULAR PREMATURE COMPLEXES LEFTWARD AXIS MODERATE INTRAVENTRICULAR CONDUCTION DELAY NONSPECIFIC ST T WAVE CHANGES DELAYED R WAVE PROGRESSION PROLONGED QTC CW 12/14/[address] T WAVE CHANGES Electronically Signed on 02-29-2020 15:45:31 EDT by Kathleen Woodward
[2020-02-29] MEDS ORDERED: SENN1TAB96 (18:30)
[2020-02-29] MEDS ORDERED: TORS100T PO (18:30)
[2020-02-29] MEDS ORDERED: ONDA8TAB8 PO (18:30)
[2020-02-29] MEDS ORDERED: POTA4.25 PO (18:30)
--- NOTE | 2020-02-29 19:03 | REPVR ---
PROCEDURE INFORMATION: Exam: MR Cervical Spine Without Contrast Exam date and time: 02/29/2020 5:54 PM Age: 64 years old Clinical indication: Neck pain; Patient HX: Neck and back pain, HX CA PT unable to have contrast due to low gfr; Additional info: Sudden onset severe neck pain R/O metastic disease TECHNIQUE: Imaging protocol: Multiplanar magnetic resonance images of the cervical spine without contrast. COMPARISON: CT Spine,cervical w/o contrast 02/29/2020 1:49 PM FINDINGS: Limitations: Patient motion. Vertebrae: There is a mild acute change in angulation at the C5-C6 level which is also seen on the CT. Disc space narrowing and endplate degeneration are most prominent C5-C6 and C6-C7 levels. Spinal cord: No cord compression. C2-C3: No spinal canal stenosis or neural foraminal narrowing. C3-C4: Mild spinal canal stenosis due to diffusely bulging annulus. No significant neural foraminal narrowing. C4-C5: No significant spinal canal stenosis. There is mild narrowing of the left neural foramen. C5-C6: Moderate spinal canal stenosis due to diffusely bulging annulus. There is moderate bilateral neural foraminal narrowing which may affect the C6 nerve roots. C6-C7: No spinal canal stenosis. Mild narrowing of the left neural foramen. C7-T1: No spinal canal stenosis or neural foraminal narrowing. Vertebral arteries: Expected flow voids in the vertebral arteries. Soft tissues: Unremarkable. IMPRESSION: No definite evidence of metastatic disease in the cervical spine however the examination is limited due to patient motion. There is diffuse degeneration most prominent the C5-C6 and C6-C7 levels consistent with osteoarthritis. Electronically signed by: Kristine Sorenson On 02/29/2020 19:03:38 PM
--- NOTE | 2020-02-29 19:15 | REPVR ---
PROCEDURE INFORMATION: Exam: MR Thoracic Spine Without Contrast Exam date and time: 02/29/2020 5:54 PM Age: 64 years old Clinical indication: Pain in thoracic spine; Without myelpathy or radiculopathy; Patient HX: Neck and back pain, HX CA PT unable to have contrast due to low gfr; Additional info: Sudden onset severe neck pain R/O metastic disease TECHNIQUE: Imaging protocol: Multiplanar magnetic resonance images of the thoracic spine without contrast. COMPARISON: No relevant prior studies available. FINDINGS: Limitations: Patient motion. Vertebrae: There appear to be focal lesions in the sacrum and the L1 vertebral body on the preliminary [employer] images of the entire spine. On the STIR sequence there appear to be multiple lesions in the thoracic spine including T2, T3, T5 through T7 artifact obscures the mid to lower thoracic spine with an abnormal appearance of L1. Spinal cord: No cord compression. Discs/Spinal canal/Neural foramina: No significant spinal canal stenosis. Sacrum/coccyx: Soft tissues: Unremarkable. IMPRESSION: The examination is very limited due to patient motion. There appear to be lesions within the thoracic vertebral bodies at multiple levels which are not well assessed. There also appears to be a lesion at the L1 level. There may be lesions in the sacrum. These lesions may be due to metastatic disease. There does not appear to be compression of the thoracic spinal cord. CT scans may provide further evaluation of bone detail. Electronically signed by: Kristine Sorenson On 02/29/2020 19:15:25 PM
[2020-03-01 01:36] VITALS: BP 176/83
[2020-03-01] MEDS ORDERED: HYDROMORPHONE HCL 0.5 MG/ 0.5 ML SYRINGE (J1170 PER 1) IV ONE (02:00)
== END 2020-03-01 01:45 | disposition short-term general hospital (02) ==
LOC: M ED 12:56
DX: G95.9 Disease of spinal cord, unspecified (principal); M54.2 Cervicalgia; I10 Essential (primary) hypertension; Z79.899 Other long term (current) drug therapy
CPT/HCPCS: 70450; 72125; 72141; 72146; 80048; 82550; 82553; 84484; 85025; 85610; 85730; 93005; 96361; 96374; 96375; 96376; 99285; J1170; J2270

== ENCOUNTER 2020-03-06 13:37 | Emergency (ER) | payer OTHER ==
[~2020-03-06 13:37] MED LIST changes: +HYDR-4571; +ONDA8TAB8 PO; +SENN1TAB96; +TORS100T PO
[2020-03-06] MEDS ORDERED: GABA-1171 PO (14:04)
[2020-03-06] MEDS ORDERED: METO1TAB87 PO (14:04)
[2020-03-06] MEDS ORDERED: CALC500T60 PO (14:04)
[2020-03-06] MEDS ORDERED: PODI1CAP PO (14:04)
[2020-03-06] MEDS ORDERED: PRED10TA2 PO (14:04)
[2020-03-06] MEDS ORDERED: FENT1DIS14 TOP (14:04)
[2020-03-06] MEDS ORDERED: CEPH250T PO (14:04)
[2020-03-06] MEDS ORDERED: OXYC-517 PO (14:04)
[2020-03-06] MEDS ORDERED: CYCL-707 PO (14:04)
[2020-03-06] MEDS ORDERED: RETA1000 SC (14:04)
[2020-03-06] MEDS ORDERED: ROCA0.5C PO (14:04)
[2020-03-06] MEDS ORDERED: ALL10TAB29 PO (14:04)
[2020-03-06 15:55] LABS: BASO % 0.2 % (0.0-1.0); EOS % 0.5 % (0.0-3.0); HEMATOCRIT 22.8 % (42.0-52.0); HEMOGLOBIN 7.1 g/dl (13.5-17.5); LYMPH # 0.5 10^3/uL (1.5-5.0); LYMPH % 9.1 % (24.0-44.0); MEAN CORPUSCULAR HEMOGLOBIN 28.7 pg (27.0-33.0); MEAN CORPUSCULAR HGB CONC 31.1 g/dl (32.0-36.5); MEAN CORPUSCULAR VOLUME 92.3 fl (80.0-96.0); MONO # 0.1 10^3/uL (0.0-0.8); MONO % 2.5 % (0.0-5.0); NEUTROPHILS # 4.9 10^3/uL (1.5-8.5); NEUTROPHILS % 86.8 % (36.0-66.0); PLATELET COUNT, AUTOMATED 180 10^3/uL (150-450); RED BLOOD COUNT 2.47 10^6/uL (4.30-6.10); WHITE BLOOD COUNT 5.6 10^3/uL (4.0-10.0)
[2020-03-06 16:12] LABS: CALCIUM LEVEL 7.5 MG/DL (8.8-10.2); CREATININE FOR GFR 3.98 MG/DL (0.70-1.30); GLOMERULAR FILTRATION RATE 16.2 (>49); POTASSIUM SERUM 4.8 MEQ/L (3.5-5.1)
[2020-03-06 16:13] VITALS: BP 180/77
[2020-03-06 16:20] LABS: INR 0.95; PROTHROMBIN TIME 12.4 SECONDS (11.8-14.0)
[2020-03-06 16:21] LABS: PARTIAL THROMBOPLASTIN TIME 34.1 SECONDS (25.0-38.4)
== END 2020-03-06 16:25 | disposition short-term general hospital (02) ==
LOC: EDBD 13:37 → M ED 13:37
DX: R04.0 Epistaxis (principal); I10 Essential (primary) hypertension; N18.6 End stage renal disease; Z94.0 Kidney transplant status; Z79.899 Other long term (current) drug therapy

== ENCOUNTER → 2020-03-19 | Outpatient (REF) | payer OTHER ==
[~2020-03-19] MED LIST changes: +ALL10TAB29 PO; +CALC500T60 PO; +CEPH250T PO; +CYCL-707 PO; +FENT1DIS14 TOP; +GABA-1171 PO; +METO1TAB87 PO; +OXYC-517 PO; +PODI1CAP PO; +PRED10TA2 PO; +RETA1000 SC; +ROCA0.5C PO
[2020-03-20 11:13] LABS: HEPATITIS B CORE ANTIBODY IGM NEGATIVE (NEGATIVE); HEPATITIS B SURFACE ANTIBODY NEGATIVE (POSITIVE); HEPATITIS B SURFACE ANTIGEN NEGATIVE (NEGATIVE)
[2020-03-21 06:39] LABS: HEPATITIS C VIRUS ABY INDEX 0.3 INDEX (<0.8)
== END ==
LOC: M LAB REF 10:09
PROVIDERS: ATTEND Internal Medicine Nephrology
DX: N18.6 End stage renal disease (principal)

== ENCOUNTER → 2020-06-23 | Outpatient (CLI) | payer OTHER, MEDICARE ==
[~2020-06-23] MED LIST changes: -ALL10TAB29 PO; -AMLO10TA5 PO; +AMLO1TAB25 PO; -ASPI81TA85 PO; +ASPI81TA86 PO; +CETI-24 PO; +ELIQ2.5T PO; -ENAL20TA PO; +ENAL20TA11 PO; +OXYC1TAB23 PO; +PANT40TA29 PO; -PANT40TA3 PO; +POTA1TAB23 PO; +VITA100T14 PO
--- NOTE | 2020-06-24 14:46 | REPVR ---
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 COMPARISON: MR FACE ONLY WITHOUT CONTRAST [id number] 03/10/2020 10:50 AM FINDINGS: As before, assessment is limited by susceptibility artifact projecting over the right face. The previously apparent right medial nasal cavity mass with extension into ethmoid air cells and right medial orbit has significantly decreased in size, although assessment is limited by the lack of intravenous contrast administration and technical differences between the 2 examinations. This measures approximately 1.4 x 3.1 cm versus 2.7 x 5.0 cm. There is opacification of the right frontal sinus, right ethmoid air cells and right maxillary sinus, compatible with sinus obstruction. There is moderate left maxillary sinus mucosal thickening with fluid. Mass appears to extend through the right cribriform plate, although this appears less pronounced. Extension into the medial orbit has significantly decreased, although proptosis persists. IMPRESSION: Significant interval decrease in size of right nasal cavity/ethmoid mass. Continued proptosis and sinus obstruction. Electronically signed by: Jazlyn Mccullough On 06/24/2020 14:46:12 PM
== END ==
LOC: M RAD 13:13
PROVIDERS: ATTEND Nurse Practitioner Adult Health
DX: C79.51 Secondary malignant neoplasm of bone (principal); J32.0 Chronic maxillary sinusitis; H05.211 Displacement (lateral) of globe, right eye

== ENCOUNTER → 2020-06-24 | Outpatient (CLI) | payer OTHER, MEDICARE ==
--- NOTE | 2020-07-08 16:33 | REP ---
WHOLE BODY RADIONUCLIDE BONE SCAN HISTORY: Malignant neoplasm metastatic to bone. 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 The patient also gives a history for remote therapy for prostate malignancy. COMPARISON: Bone scan is retrieved and compared from 03/04/2020 performed at [facility]. TECHNIQUE: 21.9 mCi of Technetium-99m MDP is injected and standard whole body bone scan imaging is acquired. SCINTIGRAPHIC FINDINGS: There is uptake in a transplant kidney in the right iliac fossa. No discernable [place] renal uptake is seen. There is uptake in the urinary bladder. An osteoarthritic pattern of increased uptake is seen in the medial compartments of each knee. This is unchanged. There is a suspicious focus of increased uptake in the posterior rib cage on the left involving the left posterior sixth rib. This is unchanged from the comparison bone scan. The other previously noted metastatic sites are no longer visible. There is subtle increased activity in the anterior left sixth rib much less pronounced than on the prior study. Previously noted spine uptake is no longer apparent. No new focus of increased uptake is seen. There is subtle increased uptake along the medial wall of the right orbit on the frontal view, but this is unchanged as well. Images demonstrate an extraosseous focus of increased uptake in or on the soft tissues of the right mid humerus. This is felt to be contaminant. In any event, it is outside of the skeleton. IMPRESSION: No new focus of metastatic uptake. Previously noted foci are much improved. There is one persistent lesion visible in the left posterior sixth rib and there is subtle modeled uptake in the anterior sixth rib on the left improved. MTDD
== END ==
LOC: M RAD 09:25
PROVIDERS: ATTEND Nurse Practitioner Adult Health
DX: C79.51 Secondary malignant neoplasm of bone (principal)
CPT/HCPCS: 78306; A9503

== ENCOUNTER 2020-07-10 11:21 | Emergency (ER) | payer MEDICARE, OTHER ==
[~2020-07-10] VITALS: Ht 185.4 cm; Wt 87.7 kg
[~2020-07-10 11:21] MED LIST changes: -ELIQ2.5T PO; -OXYC1TAB23 PO; -POTA1TAB23 PO; -VITA100T14 PO
[2020-07-10] MEDS: NS 1,000 ML IV SCH ×2 (11:25→11:45)
[2020-07-10] MEDS ORDERED: POTA1TAB23 PO (11:32)
[2020-07-10 12:20] VITALS: BP 107/59
[2020-07-10 12:31] LABS: BASO % 0.3 % (0.0-1.0); EOS # 0.1 10^3/uL (0.0-0.5); EOS % 2.2 % (0.0-3.0); HEMATOCRIT 31.9 % (42.0-52.0); HEMOGLOBIN 10.1 g/dl (13.5-17.5); LYMPH # 0.6 10^3/uL (1.5-5.0); LYMPH % 16.3 % (24.0-44.0); MEAN CORPUSCULAR HEMOGLOBIN 31.5 pg (27.0-33.0); MEAN CORPUSCULAR HGB CONC 31.7 g/dl (32.0-36.5); MEAN CORPUSCULAR VOLUME 99.4 fl (80.0-96.0); MONO # 0.3 10^3/uL (0.0-0.8); MONO % 7.1 % (0.0-5.0); NEUTROPHILS # 2.7 10^3/uL (1.5-8.5); NEUTROPHILS % 73.8 % (36.0-66.0); PLATELET COUNT, AUTOMATED 169 10^3/uL (150-450); RED BLOOD COUNT 3.21 10^6/uL (4.30-6.10); WHITE BLOOD COUNT 3.7 10^3/uL (4.0-10.0)
[2020-07-10 12:42] LABS: INR 0.98; PROTHROMBIN TIME 13.2 SECONDS (12.5-14.3)
[2020-07-10 12:56] LABS: ALBUMIN 3.2 GM/DL (3.2-5.2); BILIRUBIN,DIRECT 0.1 MG/DL (0.0-0.2); BILIRUBIN,TOTAL 0.8 MG/DL (0.2-1.0); TOTAL PROTEIN 6.8 GM/DL (6.4-8.2)
--- NOTE | 2020-07-11 09:07 | ECGEPIP ---
[facility] - ED Test Date: 2020-07-10 Pat Name: MOISÉS BISHOP Department: Room: - Gender: Male Tosser: NAKUL : 1955 Requested By: Aretha Rubin Order Number: [id number] Reading MD: Aretha Rubin Measurements Intervals [place] Rate: 66 P: 38 WA: 198 QRS: -6 QRSD: 115 T: 46 QT: 415 QTc: 436 Interpretive Statements SINUS RHYTHM MODERATE INTRAVENTRICULAR CONDUCTION DELAY DELAYED R PROGRESSION NSTTW abnormalities POSSIBLE PRIOR INFERIOR INFARCT DECREASED RATE 02/29/20 Electronically Signed on 07-11-2020 9:07:23 EDT by Aretha Rubin
[2020-07-29] MEDS ORDERED: VITA100T14 PO (12:30)
[2020-07-29] MEDS ORDERED: ELIQ2.5T PO (12:30)
== END 2020-07-10 16:15 | disposition home or self-care (01) ==
LOC: M ED 11:21
DX: R11.2 Nausea with vomiting, unspecified (principal); R19.7 Diarrhea, unspecified; I12.9 Hypertensive chronic kidney disease with stage 1 through stage 4 chronic kidney disease, or unspecified chronic kidney disease; Z99.2 Dependence on renal dialysis; C43.9 Malignant melanoma of skin, unspecified; Z94.0 Kidney transplant status; Z79.01 Long term (current) use of anticoagulants; Z79.899 Other long term (current) drug therapy

== ENCOUNTER → 2020-08-07 | Outpatient (CLI) | payer OTHER, MEDICARE ==
[~2020-08-07] MED LIST changes: +ELIQ2.5T PO; +OXYC1TAB23 PO; +POTA1TAB23 PO; +VITA100T14 PO
== END ==
LOC: M LABSMTC 10:46
PROVIDERS: ATTEND Anesthesiology
DX: Z01.818 Encounter for other preprocedural examination (principal)
CPT/HCPCS: C9803; U0003

== ENCOUNTER 2020-08-12 10:17 | Day surgery (SDC) | payer OTHER, MEDICARE ==
[~2020-08-12] VITALS: Ht 182.9 cm; Wt 88.6 kg
[~2020-08-12 10:17] MED LIST changes: +D5W/0.2% SODIUM CHLORIDE 1,000 ML IV ONE; +LIDOCAINE 1% MDV 20ML VIAL SQ PRN; +LIDOCAINE 1% SDV 30ML VIAL As Ordered ONE; +LR 1,000 ML IV ONE; -OXYC1TAB23 PO; +ceFAZolin SOD 2 GM in IV 1 EA IV ONE
[2020-08-12] MEDS ORDERED: MIDAZOLAM INJ 2MG/2ML VIAL (J2250 PER 1MG) As Ordered ONE (10:28)
[2020-08-12] MEDS ORDERED: fentaNYL 100 MCG/2 ML INJECTION (J3010) As Ordered ONE (10:30)
[2020-08-12] MEDS ORDERED: HEPARIN SOD (PORCINE) 5000UNITS/ML 1ML VIAL/SYRINGE As Ordered ONE (11:55)
[2020-08-12] MEDS ORDERED: BUPIVACAINE/EPIN 0.5% 30 ML VIAL As Ordered ONE (12:23)
[2020-08-12] MEDS ORDERED: propofoL 200 MG/20 ML VIAL As Ordered ONE ×3 (12:32→13:23)
[2020-08-12] MEDS ORDERED: ONDANSETRON 4MG/2ML VIAL As Ordered ONE (12:32)
[2020-08-12] MEDS ORDERED: ePHEDrine SULFATE 25 MG/5 ML(5MG/ML) SYRINGE As Ordered ONE (12:33)
[2020-08-12] MEDS ORDERED: PHENYLephrine HCL 500 MCG/5 ML (100MCG/ML) SYRINGE (J2370) As Ordered ONE ×2 (12:48→13:11)
[2020-08-12] MEDS ORDERED: KETAMINE HCL 200 MG/20 ML VIAL As Ordered ONE (13:30)
[2020-08-12] MEDS ORDERED: OXYC1TAB23 PO (14:00)
--- NOTE | 2020-08-12 14:11 | ROOPDOC ---
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 Excision left brachial artery pseudoaneurysm and primary repair left brachial artery 2. Revision scar left antecubital with excision of 8cm2 skin/subcutaneous tissue SURGEON: Diego St MD ANESTHESIA: Local and MAC INDICATION FOR PROCEDURE: This a very pleasant 64-year-old gentleman with end- stage renal disease who is bothered by a large aneurysmal segment of an old abandoned left antecubital fistula placed a long time ago by another provider. The patient says this been present for a long time, continues to cause him discomfort and he is especially bothered by the way it looks. He also says that sometimes he gets chemotherapy through his peripheral veins in the left upper extremity that he has pain around the aneurysm site. I discussed with him that we could resect the pseudoaneurysm and tie off this portion of the fistula, and at that may or may not have any effect on the pain he feels with chemotherapy. However, it certainly would be more aesthetically pleasing for the patient. After extensive discussion of the risks benefits alternatives he was agreeable to proceed and informed consent was obtained. REPORT OF OPERATION: Patient was brought to the OR in stable condition. Monitored anesthesia care and antibiotics were faster without complication. His left upper extremity was prepped and draped in a sterile fashion. A timeout was performed. Local anesthesia was administered to the skin and subcutaneous tissue over the previous scar and incision at the antecubital crease over the an eurysmal segment. An incision was made and carefully carried down through the thin tissue over the aneurysm. We then extended the incision a few centimeters proximally and distally after anesthetizing circumferentially with additional local anesthesia. We then began carefully dissecting around the entire aneurysm to free it from the subcutaneous tissue, muscle, adjacent nerves, and adjacent veins while preserving these adherent structures. This took a bit of time but eventually we were able to dissecting down to the brachial vein and artery. At first, upon dissection, I thought this was an aneurysm of the brachial vein, but then I was able to dissecting the brachial vein away from the aneurysm and found that this was a large pseudoaneurysm off of the brachial artery itself. Vesseloops were placed proximally and distally on the brachial artery. The Vesseloops were secured and we then carefully removed the entire pseudoaneurysm intact from the brachial artery. This was sent for pathology. We then carefully resected the redundant thickened arterial edge, and were able to primarily close the brachial artery with 6-0 Prolene suture without narrowing the artery. Before the final sutures are placed, we flushed the inflow and outflow and irrigated with heparinized saline. After the final sutures are placed and we restore flow, the patient had an excellent signal proximal to, at the repair, and distal to the repair as well as a strong radial and ulnar pulse and a biphasic signal over the palmar arch. His hand was warm and well-perfused. We then irrigated with copious amounts of normal saline. Bovie cautery was used for good hemostasis with and or dissection planes. The space where we resected the large pseudoaneurysm was closed with interrupted Vicryl sutures. The fascia was closed with a running Vicryl suture. Redundant scar tissue and skin was then carefully excised for a clean tension-free closure. 8 cm skin and subcutaneous tissue was resected. We then approximated the dermal layer with interrupted 4-0 Vicryl burris ture and the skin was closed with a running subcuticular Monocryl suture. Incision was clean and dry. Mastisol and Steri-Strips were placed length of the incision. 4 x 4 and Tegaderm were placed as a final dressing. The patient was allowed to awaken from anesthesia was taken to recovery in stable condition. He tolerated the procedure and the sedation well. ESTIMATED BLOOD LOSS: Approximately 15 mL. SPECIMEN: Left brachial artery pseudoaneurysm sent for pathology. COMPLICATIONS: None. PLAN: We will see the patient back in a week to check his incision and perfusion left hand. Ok to remove gauze and tegaderm dressing left arm after 48 hours, but leave steri strips intact for 7 days. It's okay to shower, but no tub baths or swimming for 14 days. Ok to resume home diet and medications, including blood thinners. Rx percocet sent to patient's pharmacy. We appreciate the opportunity to participate in the care of this patient. DIEGO ST MD Aug 12, 2020 14:11
[2020-08-12 15:00] VITALS: BP 115/69
== END 2020-08-12 15:12 | disposition home or self-care (01) ==
LOC: M SDC 10:17
PROVIDERS: ATTEND Surgery Vascular Surgery
DX: I72.1 Aneurysm of artery of upper extremity (principal); L90.5 Scar conditions and fibrosis of skin; N18.6 End stage renal disease; I12.0 Hypertensive chronic kidney disease with stage 5 chronic kidney disease or end stage renal disease; K21.9 Gastro-esophageal reflux disease without esophagitis; E78.00 Pure hypercholesterolemia, unspecified; C30.0 Malignant neoplasm of nasal cavity; M79.602 Pain in left arm; Z79.899 Other long term (current) drug therapy; Z87.891 Personal history of nicotine dependence; Z94.0 Kidney transplant status; Z99.2 Dependence on renal dialysis
CPT/HCPCS: 12034; 35206; 36415; 84132; 88304; J0690; J1644; J2250; J2370; J2405; J3010

== ENCOUNTER → 2020-09-01 | Outpatient (CLI) | payer OTHER, MEDICARE ==
[~2020-09-01] MED LIST changes: -D5W/0.2% SODIUM CHLORIDE 1,000 ML IV ONE; -LIDOCAINE 1% MDV 20ML VIAL SQ PRN; -LIDOCAINE 1% SDV 30ML VIAL As Ordered ONE; -LR 1,000 ML IV ONE; +OXYC1TAB23 PO; -ceFAZolin SOD 2 GM in IV 1 EA IV ONE
--- NOTE | 2020-09-01 13:19 | REP ---
INDICATION: ANEURYSM OF ARTERY OF UPPER EXTREMITY. COMPARISON: None. 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 FINDINGS: The distal left brachial artery demonstrates wall thickening and mild luminal narrowing likely at the site of pseudoaneurysm repair. There is no extravasation. Arterial vessels of the left upper extremity are intact. They demonstrate triphasic waveforms and normal flow velocities. Left subclavian artery peak systolic velocity 134 centimeters/second. Left axillary artery peak systolic velocity 82 centimeters/second. Left brachial artery proximal peak systolic velocity 77 centimeters/second Left brachial artery distal peak systolic velocity 132 centimeters/second Left proximal radial artery peak systolic velocity 112 centimeters/second. Left proximal ulnar artery peak systolic velocity 73 centimeter/second. At the site of the palpable lump in the antecubital fossa there is a complex septated cystic area measuring 9.1 x 1.3 x 6.3 cm likely representing resolving hematoma. IMPRESSION: Left upper extremity arterial system intact status post pseudoaneurysm repair, with no current extravasation. At the site of the palpable lump in the antecubital fossa there is a complex septated cystic area likely representing resolving hematoma. <Electronically signed by Gilberto Anderson > 09/01/20 [id number]
== END ==
LOC: M RAD 11:51
PROVIDERS: ATTEND Physician Assistant
DX: R22.32 Localized swelling, mass and lump, left upper limb (principal); Z98.890 Other specified postprocedural states

== ENCOUNTER → 2020-10-14 | Outpatient (CLI) | payer OTHER, MEDICARE ==
--- NOTE | 2020-10-14 09:15 | REP ---
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 COMPARISON: Comparison is made with prior studies including MRI exam from June 23, 2020 and March 10, [address] as maxill[address] CT study from January 04, 2020.. TECHNIQUE: Axial, coronal and sagittal imaging planes utilized for maxillofacial and orbital MRI study. FINDINGS: There is a moderate magnetic field susceptibility artifact with some associated distortion on the right due to a metallic foreign body seen in the subcutaneous malar soft tissues on the right. This is unchanged. There is [id number] mucosal thickening in the left maxillary sinus. There is mild mucosal thickening in the ethmoid air cells. There is moderate mucosal thickening in the right maxillary sinus with some fluid in the sinus. The paranasal sinus mucosal thickening is improved compared with the March 10, 2020 prior MRI study. The right maxillary sinus mucosal thickening is improved compared with the more recent June 23, 2020 study. The previously noted right medial maxillary sinus mass had extended into the right nasal cavity, the extraconal right orbit, and through the right cribriform plate. These changes are improved significantly compared to the March 10, 2020 study. The soft tissue components of the lesion in these locations show some improvement since the more recent study of June 23, 2020 as well. The frontal sinus is now aerated whereas in June it was filled with fluid. The right cribriform plate remains displaced slightly superiorly. No new mass effect is appreciated. No new area of bony destruction is appreciated. IMPRESSION: Significant improvement over the March 10, 2020 study is maintained. There is slight improvement visible since the more recent June 23, 2020 exam. <Electronically signed by Javan Jimenez > 10/14/20 [id number]
== END ==
LOC: M RAD 07:29
PROVIDERS: ATTEND Nurse Practitioner Adult Health
DX: C79.51 Secondary malignant neoplasm of bone (principal); C43.31 Malignant melanoma of nose

== ENCOUNTER → 2020-10-28 | Outpatient (CLI) | payer OTHER, MEDICARE ==
[~2020-10-28] MED LIST changes: -MAG400TA PO; +MAGN400T35 PO
--- NOTE | 2020-10-28 13:16 | REP ---
INDICATION: MALIG METS TO BONE. 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 On targeted therapy. Evaluate for response. Status post radiation therapy, on chemotherapy. COMPARISON: Comparison whole body bone scan June 24, 2020.. TECHNIQUE/RADIOTRACER AND DOSE: 21.9 mCi of Technetium-99m MDP was injected and standard whole-body bone scanning is acquired. 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 No mcgrath renal parenchymal localization is appreciated. There is a minimal dextroconvex curvature in the lumbar spine. There is a focus of increased uptake in the left posterior 6th rib. This is unchanged in size and appears a little less avid. There is increased uptake in each mandibular ramus. This is a new finding. 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 Mandibular CT study may provide additional information. There is slightly asymmetric increased uptake in the surgical neck of the left humerus unchanged. No other new focus of increased uptake is seen. There is mildly asymmetric uptake along the medial aspect of the right orbit unchanged. There is arthritic uptake in each knee. No other suspicious focus. IMPRESSION: Increased uptake in the mandibular rami bilaterally and symmetrically question radionecrosis of the mandible. Consider CT. Stable focus of increased uptake in the left posterior 6th rib. No other new focus seen.. <Electronically signed by Javan Jimenez > 10/28/20 [id number]
== END ==
LOC: M RAD 09:30
PROVIDERS: ATTEND Nurse Practitioner Adult Health
DX: C79.51 Secondary malignant neoplasm of bone (principal)
CPT/HCPCS: 78306; A9503

== ENCOUNTER 2020-11-24 17:22 | Emergency (ER) | payer OTHER, MEDICARE ==
[~2020-11-24] VITALS: Ht 185.4 cm; Wt 87.7 kg
--- OUTSIDE RECORDS SUMMARY | 2020-11-24 17:32 | CCD | Continuity of Care Document ---
Author Author [facility] Jamil whelan V Organization Unknown Address [address] [place] [address] Phone [phone] Problems Description No Information Available Social History Type Date Description Comments Sex Unknown Allergies, Adverse Reactions, Alerts Description No Known Drug Allergies Medications Active Medications SIG Qnty Indications Ordering Provide r Date Folic Acid 1mg Tablets 1mg po every day [facility] [place] 07/16/2020 Eliquis 2.5mg Tablets 1 tab by mouth twice a day 60tabs Chuy Pryor MD 07/16/2020 Acetaminophen ER 650mg Tablets ER 1 tab po every four hours prn pain Unknown Zyrtec Allergy 10mg Capsules 1 by mouth every day Unknown Potassium Chloride ER 8Meq Capsule s ER take 2 capsules twice a day Unknown Senokot 8.6mg Tablets 2 tabs PO QHS as needed Unknown Minoxidil 10mg Tablets 1 tab by mouth bid Unknown Ferrous Gluconate 324(38Fe) mg Tab lets 1 by mouth bid Unknown Magnesium Oxide 400mg Tablets 1 by mouth bid Unknown Allopurinol 300mg Tablets 1 tab po every day Unknown Prednisone 5mg Tablets 2 tab po every day Unknown Pantoprazole Sodium 40mg Tablets D R 1 tab po QHS Unknown Amlodipine Besylate 10mg Tablets 1 tab po every day Unknown Hydrocodone Bitartrate/Acetaminophen 5-325mg Tablets 1 tablet every 6 hours as needed for pain Unknown Metoprolol Tartrate 25mg Tablets 1 tab PO twice a day Unknown Ondansetron 8mg Tablets Dispers every day, as needed Unknown Simvastatin 20mg Tablets 1 tab po every day Unknown Fentanyl 25mcg/HR Patches 72HR transdermal every 72 hours Unknown Gabapentin 100mg Capsules 1 cap by mouth at bedtime Unknown History Medications Metoprolol Tartrate 25mg Tablets 1 tab po twice a day [facility] [place] 07/16/2020 - 07/16/2020 Immunizations Description No Information Available Vital Signs Date Vital Result Comment 11/11/2020 9:31am BP Systolic Left Arm 145 mmHg BP Diastolic Left Arm 73 mmHg Heart Rate 61 /min Body Temperature 97.8 F Respiratory Rate 17 /min Height 72 inches 6'0" Weight 189.81 lb Weight 86.100 kg O2 % BldC Oximetry 95 % BMI (Body Mass Index) 25.7 kg/m2 Pain Level 0 07/29/2020 12:37pm BP Systolic Left Arm 137 mmHg BP Diastolic Left Arm 64 mmHg Heart Rate 70 /min Body Temperature 98.0 F Respiratory Rate 16 /min Height 72 inches 6'0" Weight 198.44 lb Weight 90.011 kg O2 % BldC Oximetry 99 % BMI (Body Mass Index) 26.9 kg/m2 Pain Level 0 Results Description No Information Available Procedures Description No Information Available Medical Devices Description No Information Available Encounters Description No Information Available Assessments Description No Information Available Plan of Treatment Future Appointment(s):* 05/12/2021 10:00 am - [facility] * 05/12/2021 10:00 am - Chuy Pryor [facility] Functional Status Description No Information Available Mental Status Description No Information Available Referrals Description No Information Available
--- OUTSIDE RECORDS SUMMARY | 2020-11-24 17:32 | CCD | Summary of Care ---
Author Author [facility] Organization [facility] Address Unknown Phone Unavailable Care Team Providers Care Hair Cutter Name Role Phone Regan Erazo MD PCP Reason for Visit * Reason Comments Chemotherapy * Medication (Routine) Referred By Contact Referred To Contact Status Reason Specialty Diagnoses / Procedures Jose Nieto MD [address] [address] Email: [email or web address] Hematology Oncology [facility] Based [address] [phone] Authorized Hematology and Diagnoses Oncology Metastatic malignant melanoma 172.9 (ICD-9-CM) - C79.9 (ICD-10-CM) - Metastatic malignant melanoma P rocedures NH INJECTION, NIVOLUMAB NH IPILIMUMAB INJECTION NH DENOSUMAB INJECTION Yervoy and Opdivo do not require prior authorization with this R/[facility] Select plan per call to [facility] using passcode [id number]. Reference number [id number]. Encounter Details Care Team Description Date Type Department Jose Nieto MD [address] [place] [address] [phone] Malignant melanoma of nose (Primary Dx); Encounter for long-term (current) use of other medications; Malignant neoplasm metastatic to bone 08/28/2020 Office Visit Hematology Oncology [address] [place] [phone] Allergies No Known Allergiesdocumented as of this encounter (statuses as of 09/08/2020) Medications End Date Status Medication Sig Dispensed Refills Start Date Active amlodipine (NORVASC) 10 Take 10 mg by 0 MG tablet mouth daily Active folic acid (FOLVITE) 1 MG Take 1 mg by 0 tablet mouth daily. Active Pyridoxine HCl (VITAMIN Take 100 mg 0 B-6) 100 MG tablet by mouth daily. Active Ferrous Gluconate Take 1 tablet 0 (FERGON) 324 (37.5 Fe) MG by mouth Two TABS Times Daily Active Cetirizine HCl 10 MG Oral Take 10 mg by 0 Tablet (ZYRTEC) mouth daily Active Epoetin Manolo-epbx 91102 Inject 10,000 0 UNIT/ML Injection Units into Solution (Retacrit) the skin every 14 (fourteen) days Active Pantoprazole Sodium 40 MG Take 1 tablet 30 tablet 0 Oral Tablet Delayed by mouth 0 Release (PROTONIX) daily Active Magnesium Oxide 400 Take 1 tablet 30 tablet 0 12/10 (241.3 Mg) MG Oral Tablet by mouth Two 0 (MAG-OX) Times Daily 03/04/2021 Active Minoxidil 10 MG Oral Take 1 tablet 60 tablet Tablet (LONITEN) by mouth Two 0 Times Daily Additional Information Patient taking differently: 5 mg Oral 2 Times Daily, Informant: Pharmacy, Reported on 07/03/2020 9:21 AM 03/04/2021 Active Calcium Carbonate Antacid Chew 1 tablet 120 tablet 11 500 MG Oral Tablet by Mouth Four 0 Chewable (TUMS) times daily Additional Information Patient taking differently: 500 mg Oral 2 Times Daily, Reported on 06/05/2020 9:31 AM Active Gabapentin 100 MG Oral Take 1 90 capsule 0 Capsule (NEURONTIN) capsule by 0 mouth nightly Active Metoprolol Tartrate 25 MG Take 1 tablet 60 tablet 0 Oral Tablet (LOPRESSOR) by mouth Two 0 Times Daily Active Potassium Chloride [place] Take 10 mEq 0 ER 10 MEQ Oral Tablet by mouth Two Extended Release (K-DUR) Times Daily Active predniSONE 10 MG Oral Take 5 mg by 0 Tablet (DELTASONE) mouth daily Active Apixaban 5 MG Oral Tablet Take 5 mg by 0 (Eliquis) mouth Two Times Daily 09/27/2020 Active fentaNYL 25 MCG/HR Place 1 patch 10 patch 0 08/28 Transdermal Patch 72 Hour onto the skin 0 (DURAGESIC) every 3 (three) days Starting April 16, Max Daily Dose: 1 patch 08/30/2020 hydrOXYzine HCl 10 MG Take 1 tablet 120 tablet 0 Oral Tablet (ATARAX) by mouth 0 every 6 (six) hours as needed for Itching 08/28/2020 Discontinued (Reorder) fentaNYL 25 MCG/HR Place 1 patch 10 patch 0 07/31 Transdermal Patch 72 Hour onto the skin 0 (DURAGESIC) every 3 (three) days Starting April 16, Max Daily Dose: 1 patch documented as of this encounter (statuses as of 09/08/2020) Active Problems Problem Noted Date Encounter for long-term (current) use of other medica tions 07/31/2020 Nosebleed 03/07/2020 Acute blood loss anemia 03/07/2020 Epistaxis 03/06/2020 Anemia of chronic disease 03/05/2020 Overview: Due to CKD/ESRD Acute anterior epistaxis 03/05/2020 Malignant neoplasm metastatic to bone 03/03/2020 Back pain 03/01/2020 Malignant melanoma 01/04/2020 CLARE (acute kidney injury) 02/18/2017 Sinus bradycardia 02/18/2017 Renal transplant, status post 02/18/2017 Immunocompromised patient 02/18/2017 Hyperkalemia 02/17/2017 Erectile dysfunction 10/06/2012 S/P kidney transplant 10/06/2012 ESRD (end stage renal disease) Benign prostatic hypertrophy Primary hyperoxaluria, type I Hypercholesterolemia H/O renal calculi Nephrolithiasis COPD (chronic obstructive pulmonary dis ease) Hypomagnesemia Hyperglycemia Prostate cancer documented as of this encounter (statuses as of 09/08/2020) Social History Date Tobacco Use Types Packs/Day Years Used Former Smoker Smokeless Tobacco: Never Used Sex Assigned at Date Recorded Not on file Date Recorded COVID-19 Exposure Response 08/28/2020 8:58 AM EST In the last month, have you been in contact with No / Unsure someone who was confirmed or suspected to have Coronavirus / COVID-19? documented as of this encounter Last Filed Vital Signs Reading Time Taken Comments Vital Sign 134/69 08/28/2020 11:00 AM EST Blood Pressure 58 08/28/2020 11:00 AM EST Pulse 36.6 C (97.8 F) 08/28/2020 11:00 AM EST Temperature - - Respiratory Rate - - Oxygen Saturation - - Inhaled Oxygen Concentration 88.5 kg (195 lb) 08/28/2020 9:21 AM EST Weight - - Height 26.45 03/07/2020 1:56 AM EDT Body Mass Index documented in this encounter Progress Notes * Jose Nieto MD - 08/28/2020 9:15 AM EST I saw and evaluated the patient. Discussed with the non-physician practitioner and agree with the non-physician practitioner findings and plan as documented in their note. Stable to proceed with treatment today. * Merry Duron PA - 08/28/2020 9:[address] [facility] [place] [facility] Follow Up Note Diagnosis: 1. 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 Treatments: S/p RT x 5 to the right maxillary sinus/nasal cavity/right orbit -> 01/11/20 Currently on OPDIVO Q 4 weeks with xgeva Q 4 weeks, started 01/14/20 with response . 2. History of prostate cancer s/p prostatectomy 2010 3. ESRD on hemodialysis M-W-F as of 03/17/20, receiving retacrit there History of present illness: Jamil Lees is a 64 y.o. male with COPD,dm, Hx of prostaet cancer s/p Prstatectomy. Patient also has ESRD 2/2 oxalosis/Kidneyu sto esthela s/p LDRT (08/08/2007) from his . His transplanted Kidney function has sl owly deteriorated (Cr 3.79, GFR 15). Patient reports since 09/2019 he starting d eveloping symptoms of headaches, sinus pressure. He sought medical attention whe n he had an episode of epistaxis. He was noted to have "mass in his nasal sinuse s". He was eventually seen by ENT at [place] who did a TPL and a biopsied the mass in 12/14/2019. The biopsy showed a Malignant melanoma. Patient was referred t o [facility] for further care. He was seen on 01/03/[address] Linda Khanna at the [facility]. Patient returned home and had compl aints of worsening ocular pressure with right eye swelling. Had right eye pain, redness and swelling, severe headache. The CT scan done at [facility] shows incr ease in size of his Right nasal melanoma that has eroded into the Right orbit. John barrientos would prefer to get therapy at [place] as [place] is a long commute for him . He was admitted to from 01/04/20 to 01/07/20. Due to the extension of the pete or, he was not considered a surgical candidate. Radiation oncology offered 5 fra ctions to his nares tumor which was completed 01/10/20. Renal transplant stopped h is cellcept, tacrolimus, and lisinopril and he is on prednisone 5 mg a day. An o utpatient PET was done 12/22/19 for baseline staging and shows activity in the ri ght nasal cavity, left proximal humerus, upper thoracic spine, and possible live r mets (below). Baseline LDH 654 on 01/03/20. He began Opdivo alone every 4 weeks on 01/14/20 with xgeva but calcium has been too low since to dose most visits. He continues on Opdivo. Interval History: The patient continues tolerating Opdivo without difficulties. Skin pruritis is getting worse. He took Atarax for a few days but it did not help so he stopped taking it. The patient states he always gets itchy skin in wi nter. He does not use skin moisturizers. He continues taking Prednisone 5 mg da jonh and Tums 500 mg BID and Mg 400 mg BID. Hemodialysis continues TIW. He kourtney es fevers, chills, nausea, diarrhea, unusual SOB. No acute issues at this time. Pain controlled well with Fentanyl 25mcg/hr. Allergies: No Known Allergies Current Outpatient Medications Medication Sig Dispense Refill amlodipine (NORVASC) 10 MG tablet Take 10 mg by mouth daily Apixaban 5 MG Oral Tablet (Eliquis) Take 5 mg by mouth Two Times Daily Calcium Carbonate Antacid 500 MG Oral Tablet Chewable (TUMS) Chew 1 table t by Mouth Four times daily (Patient taking differently: Chew 500 mg by Mouth Tw o Times Daily ) 120 tablet 11 Cetirizine HCl 10 MG Oral Tablet (ZYRTEC) Take 10 mg by mouth daily Epoetin Manolo-epbx 83168 UNIT/ML Injection Solution (Retacrit) Inject 10,0 00 Units into the skin every 14 (fourteen) days fentaNYL 25 MCG/HR Transdermal Patch 72 Hour (DURAGESIC) Place 1 patch on to the skin every 3 (three) days Starting April 16, Max Daily Dose: 1 patch 10 pat ch 0 Ferrous Gluconate (FERGON) 324 (37.5 Fe) MG TABS Take 1 tablet by mouth T wo Times Daily folic acid (FOLVITE) 1 MG tablet Take 1 mg by mouth daily. Gabapentin 100 MG Oral Capsule (NEURONTIN) Take 1 capsule by mouth nightl y 90 capsule 0 hydrOXYzine HCl 10 MG Oral Tablet (ATARAX) Take 1 tablet by mouth every 6 (six) hours as needed for Itching 120 tablet 0 Magnesium Oxide 400 (241.3 Mg) MG Oral Tablet (MAG-OX) Take 1 tablet by m outh Two Times Daily 30 tablet 0 Metoprolol Tartrate 25 MG Oral Tablet (LOPRESSOR) Take 1 tablet by mouth Two Times Daily 60 tablet 0 Minoxidil 10 MG Oral Tablet (LONITEN) Take 1 tablet by mouth Two Times Da jonh (Patient taking differently: Take 5 mg by mouth Two Times Daily ) 60 tablet 11 Pantoprazole Sodium 40 MG Oral Tablet Delayed Release (PROTONIX) Take 1 t ablet by mouth daily 30 tablet 0 Potassium Chloride America ER 10 MEQ Oral Tablet Extended Release (K-DUR) Ta ke 10 mEq by mouth Two Times Daily predniSONE 10 MG Oral Tablet (DELTASONE) Take 5 mg by mouth daily Pyridoxine HCl (VITAMIN B-6) 100 MG tablet Take 100 mg by mouth daily. No current facility-administered medications for this visit. Visit Vitals BP 126/63 Pulse (!) 56 Temp 36.6 C (97.8 F) (Skin) Wt 88.5 kg (195 lb) BMI 26.45 kg/m Physical Exam: The patient is alert, oriented, well developed. Oral mucosa is pink, moist, wit hout lesion or exudate. Neck is supple, without JVD or adenopathy. Chest is elsy ar bilaterally to auscultation, without rhonchi or wheeze. COR is S1, S2, witho ut murmur or gallop. Abdomen is soft, non tender, without organomegaly or mass. Extremities are without clubbing, cyanosis, or edema. Neurologically, cranial nerves II-XII are grossly intact. Skin with vitiligo on face, arms, legs. Labs: DATE 01/03/20 5 603/27/20 04/09/20 05/06/20 06/02/20 06/24/20 08/18/20 WBC 7.8 5.3 5.1 8.7 7.9 4.66 3.65 4.43 3.49 HGB 9.8 8.3 7.8 7.8 11.8 9.9 9.4 9.6 10.3 HCT 31 25.2 22.8 23.6 35.2 29.7 28.7 28.8 30.9 PLT 194 246 218 275 301 222 202 Creat/GFR 4.37/13 3.1/20.3 3.77/17 3.8/16.0 7.6/47 5.1 LDH 654 228 nl 128 138 TSH 1.31 0.471 0.313 0.228 0.059 FT4 1.2 1.37 1.28 1.22 1.27 Calcium 7.2 7.3 9.5 10.7 9.3 7.5 8.1 Imagin06/24/20 Bone Scan IMPRESSION: No new focus of metastatic uptake. Previously noted foci are much im proved. There is one persistent lesion visible in the left posterior 6th rib and there is subtle modeled uptake in the anterior 6th rib on the left, improved. 06/23/20 MR FACE ONLY without contrast IMPRESSION: Significant interval decrease in size of right nasal cavity/ethmoid mass. Continued proptosis and sinus obstruction. 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 He completed the radiation to the right sinus/orbit on 01/11/20 and began Nivoluma b 480 mg IV monthly with xgeva on 01/14/20. LDH has responded nicely and has kermit lized. Current scans showed continued response despite low dose prednsione. He is stable to proceed with cycle #9 opdivo today, calcium is 8.1- will give xg chayo. Restaging scans ordered today to be scheduled to review prior to 10/23/20 OV & Treatment. RTC in 4 weeks for OV with cbc,cmp,ldh, tsh,& t4 for treatment with Opdivo cycle 10 and Xgeva. Will need to order platelet specifically as his lab in [place], does not do th e test with the cbc, unless it is ordered separately. All questions were answered to the patients satisfaction. Patient states unders tanding to the information that was discussed today and is agreeable to this anastasia n. Patient instructed to call office in the meantime with any concerns or issues . This patient was discussed with Dr. Jose Nieto. Certain parts of this note may have been carried over from prior notes to [place] in accuracy of patient's pertinent medical history and continuity of care. The d etails were verified and edited as appropriate. documented in this encounter Nursing Notes * Julee Knapp, RN - 08/28/2020 9:15 AM EST 9:45 22g LFA 1st attempt with excellent blood return easy flush. Right arm activ e fistula not able to use for access. IV site remained asymptomatic throughout t reatment , tolerated well, flushed with 40ml NS, discontinued IV site dsd applie d. Xgeva 120mg subq Left arm . Has follow up apt and lab slips. documented in this encounter Plan of Treatment Care Team Description Date Type Specialty Jose Nieto MD [address] [place] [address] [phone] 09/25/2020 Office Visit Hematology and Onco logy Anam Paz NP [address] [id number] 06/09/2021 Follow-Up Transplant Order Schedule Name Type Priority Associated Diag noses 1 Occurrences starting 08/28/2020 until 02/25/2021 CBC and differential Lab Routine Malignant melanoma of nose 1 Occurrences starting 08/28/2020 until 02/25/2021 Platelet count Lab Routine Malignant melan tree of nose 1 Occurrences starting 08/28/2020 until 02/25/2021 Comprehensive metabolic Lab Routine Malign ant melanoma of panel nose 1 Occurrences starting 08/28/2020 until 02/25/2021 TSH Lab Routine Encounter for l maricarmen-term (current) use of other medications 1 Occurrences starting 08/28/2020 until 02/25/2021 T4 Lab Routine Encounter for l maricarmen-term (current) use of other medications 1 Occurrences starting 08/28/2020 until 02/25/2021 Lactate dehydrogenase LDH Lab Routine Viridiana reece melanoma of nose Health Maintenance Due Date Last Done Comments MMR Vaccines (1 of 1 - 1956 Standard series) Varicella Vaccines (1 of 1956 2 - 2-dose childhood series) Pneumococcal Vaccine: 1961 Pediatrics (0 to 5 Years) and At-Risk Patients (6 to 64 Years) (1 of 3 - PCV13) Hepatitis B Vaccines (1 1972 of 3 - Risk 3-dose series) Colon Cancer Screening 10 2003 yrs Zoster Vaccines (1 of 2) 2003 DTaP,Tdap,and Td Vaccines 10/14/2010 09/16/2010 (2 - Td) Pneumococcal Vaccine: 65+ 2018 Years (1 of 1 - PPSV23) Influenza Vaccine 07/10/2020 07/05/2019, 08/02/2017, 08/02/2017, Additional history exists Hepatitis C Screening (B. Completed 02/18/2017 [id number]) HIB Vaccines Aged Out No longer eligible based on patient's age to complete this topic Hepatitis A Vaccines Aged Out No longer eligibl e based on patient's age to complete this topic IPV Vaccines Aged Out No longer eligible based on patient's age to complete this topic documented as of this encounter Implants Device Identifier Shelf Expiration Date Model / Serial / L ot Implanted Type Area Manufactur er 02/13/2021 [id number] / / [id number] Dial- Schon 20cm Xl Acu Cth.. - N/A: Neck ALEXI ODYNAM [id number] ICS Implanted: Qty: 1 on 02/18/2017 by Javy Diaz MD at [facility] 09/08/2018 [id number] / / [id number] Dial-Decathlon Df 16fr X 23ttc - N/A: Chest BARD [id number] Wall MEDICAL Implanted: Qty: 1 on 02/21/2017 by Chiquita Bermudez MD at OR [facility] documented as of this encounter Results Not on filedocumented in this encounter Visit Diagnoses Diagnosis Malignant melanoma of nose - Primary Malignant melanoma of skin of other and unspecified parts of face Encounter for long-term (current) use o f other medications 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 documented in this encounter Administered Medications Action Date Dose Rate Site Medication Order MAR Action 08/28/2020 11:00 AM EST 120 mg Left Arm denosumab (XGEVA) injection 120 mg Given 120 mg, Subcutaneous, Once, Frida 0 at 1000, For 1 dose 08/28/2020 10:10 AM EST 480 mg 200 mL/hr nivolumab (OPDIVO) 480 mg in sodium New Bag chloride 0.9 % 100 mL chemo infusion 480 mg, Intravenous, Administer over 30 Minutes, Once, Frida 08/28/20 at 1000, Fo r 1 dose documented in this encounter Additional Health Concerns Last Indicated Resolved Time Infection Onset Date 01/10/2012 Transplant Recipient 01/10/2012 documented as of this encounter
--- OUTSIDE RECORDS SUMMARY | 2020-11-24 17:32 | CCD | Summary of Care ---
Author Author [facility] Address Unknown Phone Unavailable Care Team Providers Care Bone Drier Name Role Phone Regan Erazo MD PCP Reason for Visit * Reason Comments Follow-up Immunotherapy Infusion * Medication (Routine) Referred By Contact Referred To Contact Status Reason Specialty Diagnoses / Procedures Jose Nieto MD [address] [address] Email: [email or web address] Hematology Oncology [facility] Based [address] [address] Authorized Hematology and Diagnoses Oncology Metastatic malignant melanoma 172.9 (ICD-9-CM) - C79.9 (ICD-10-CM) - Metastatic malignant melanoma P rocedures ND INJECTION, NIVOLUMAB ND IPILIMUMAB INJECTION ND DENOSUMAB INJECTION Yervoy and Opdivo do not require prior authorization with this [facility] plan per call to [facility] using passcode [id number]. Reference number [id number]. Encounter Details Care Team Description Date Type Department Jose Nieto MD [address] [place] [address] Prostate cancer (Primary Dx); Malignant neoplasm metastatic to bone; Immunocompromised patient; Encounter for long-term (current) use of other medications; Malignant melanoma of nose 09/25/2020 Office Visit Hematology Oncology [address] [address] Allergies No Known Allergiesdocumented as of this encounter (statuses as of 10/08/2020) Medications End Date Status Medication Sig Dispensed [...] Tablet (ZYRTEC) mouth daily Active Epoetin Manolo-epbx 18703 Inject 10,000 0 UNIT/ML Injection Units into [...] by 0 (Eliquis) mouth Two Times Daily Active fentaNYL 25 MCG/HR Place 1 patch 10 patch 0 08/28 Transdermal Patch 72 Hour onto the skin 0 (DURAGESIC) every 3 (three) days Starting April 16, Max Daily Dose: 1 patch Active predniSONE 20 MG Oral Take 2, 20 mg 10 tablet 0 Tablet tablets po 0 with breakfast x 5 days, then resume 5 mg po BID documented as of this encounter (statuses as of 10/08/2020) Active Problems Problem Noted Date Encounter for [...] as of this encounter (statuses as of 10/08/2020) Social History Date Tobacco Use Types Packs/Day Years Used Former Smoker Smokeless Tobacco: Never Used Sex Assigned at Date Recorded Not on file Date Recorded COVID-19 Exposure Response 09/25/2020 8:42 AM EST In the last month, have you been in contact with No / Unsure someone who was confirmed or suspected to have Coronavirus / COVID-19? documented as of this encounter Last Filed Vital Signs Reading Time Taken Comments Vital Sign 148/75 09/25/2020 10:59 AM EST Blood Pressure 48 09/25/2020 10:59 AM EST Pulse 36.4 C (97.6 F) 09/25/2020 10:59 AM EST Temperature - - Respiratory Rate - - Oxygen Saturation - - Inhaled Oxygen Concentration 88 kg (194 lb) 09/25/2020 9:13 AM EST Weight - - Height 26.31 03/07/2020 1:56 AM EDT Body Mass Index documented in this encounter Progress Notes * Jose Nieto MD - 09/25/2020 9:00 AM EST I saw and evaluated the patient. Discussed with the non-physician practitioner and agree with the non-physician practitioner findings and plan as documented in their note. Stable to proceed with treatment today. * Naktia Pretty MATERIAL CLERK - 09/25/2020 9:00 AM EST [facility] Follow Up Note Diagnosis: 1. 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 Treatments: S/p RT x 5 to the right maxillary sinus/nasal cavity/right orbit -> 01/11/20 Currently on OPDIVO Q 4 weeks for total of 2 years with xgeva Q 4 weeks, started 01/14/20 with response. 2. History of prostate cancer s/p prostatectomy [...] He was eventually seen by ENT at [place] who did a TPL and a biopsied the mass in 12/14/2019. The biopsy showed a Malignant melanoma. Patient was referred t [facility] for further care. He was seen on 01/03/[address] Linda Khanna at the [facility]. Patient returned home and had compl aints of worsening ocular pressure with right eye swelling. Had right eye pain, redness and swelling, severe headache. 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 H e would prefer to get therapy at [place] as [place] is a long commute for him . [...] on 01/14/20 with xgeva but calcium has intermittently been too low to dose most v isits. He continues on Opdivo. Interval History: The patient continues tolerating Opdivo without difficulties. Skin pruritis is getting much worse. He took Atarax for a few days but it did not help so he stopped taking it. The patient states he always gets itchy skin in winter. He does not use skin moisturizers, but is willing to try Amlactin. John barrientos continues taking Prednisone 5 mg daily and Tums 500 mg BID and Mg 400 mg BID. Hemodialysis continues TIW. He denies fevers, chills, nausea, diarrhea, unusual SOB. No acute issues at this time. Pain controlled well with Fentanyl 25mcg/hr. Past Medical History: Diagnosis Date Benign prostatic hypertrophy COPD (chronic obstructive pulmonary disease) Diabetes mellitus type II ESRD (end stage renal disease) GERD (gastroesophageal reflux disease) H/O renal calculi Hypercholesterolemia Hyperglycemia Hypertension Hypomagnesemia Kidney transplanted Nephrolithiasis Primary hyperoxaluria, type I 07/19 [facility] Prostate cancer Skin cancer Past Surgical History: Procedure Laterality Date KIDNEY TRANSPLANT 08/08/2007 R-Kidney, unrelated live donor PARTIAL NEPHRECTOMY Right side PROSTATE BIOPSY 12/31/2010 PROSTATECTOMY 04/2011 RENAL BIOPSY 05/01/2010 Focal interstitial Nephritis w/tubular injury RENAL BIOPSY 08/08/2007 Tubular Injury pattern Allergies: No Known Allergies Current Outpatient Medications [...] 10 mg by mouth daily Epoetin Manolo-epbx 83878 UNIT/ML Injection Solution (Retacrit) Inject 10,0 00 [...] by mouth nightl y 90 capsule 0 Magnesium Oxide 400 (241.3 Mg) MG [...] medications for this visit. Visit Vitals BP 147/66 Pulse (!) 50 Temp 36.6 C (97.8 F) (Skin) Wt 88 kg (194 lb) BMI 26.31 kg/m Physical Exam: The patient is alert, oriented, well developed. Oral mucosa is pink, moist, wit hout lesion or exudate. Neck is supple, without JVD or adenopathy. Chest is elsy ar bilaterally to auscultation, without rhonchi or wheeze. COR is S1, S2, witho ut murmur or gallop. Abdomen is soft, non tender, without organomegaly or mass. Extremities with scratched areas, as is back, nose, and abd, but without clubb ing, cyanosis, or edema. Neurologically, cranial nerves II-XII are grossly inta ct. Skin with vitiligo on face, arms, legs. Labs: DATE 01/03/20 02/14/20 03/13/20 03/27/20 04/09/20 05/06/20 06/02/20 06/24/20 08/18/20 WBC 7.8 [...] has responded nicely and has kermit lized. 06/2020 scans showed continued response despite low dose prednsione. For itching he will try to use Amlactin and will give pulse dose of Prednisone 40 mg po QD x 5 days, then resume the 5 mg BID, to see if this provides relief. He do es have derm follow up with Edith Dumont NP in [place], Tuesday [office p radha # ]. Will ask that today's note if faxed to her & have her added to the [facility] chart care team. Other options considered by Dr. Nieto are: to try giving Opdivo every other week at 240 mg or changing the dose interval of the 480 mg dose to Q 6 weeks in order to help alleviate his itching. He is stable to proceed with cycle #10 opdivo today, calcium is 9.1- will give x geva. Restaging scans ordered today to be scheduled to review prior to 10/23/20 OV & treatment. RTC in 4 weeks for OV with cbc,cmp, ldh, tsh,& t4 for treatment with Opdivo cycle 11 and Xgeva. Will need to order platelet specifically as his lab in [place], does not do th e test with the cbc, unless it is ordered separately. All questions were answered to the patients satisfaction. Patient states unders tanding to the information that was discussed today and is agreeable to this anastasia n. Patient instructed to call office in the meantime with any concerns or issues .This patient was seen and examined by Nakita Pretty, ANP, BC and discusse d with Dr.Sam Nieto. Certain parts of this note may have been carried over fr om prior notes to maintain accuracy of patient's pertinent medical history and c ontinuity of care. The details were verified and edited as appropriate. documented in this encounter Nursing Notes * Julee Knapp RN - 09/25/2020 9:00 AM EST 10:00 24g LFA 1st attempt excellent blood return easy flush tolerated well. Had office visit, today received Opdivo 480mg IV and Xgeva 120mg subq. Lab slips pro vided and follow up apt made. Pt encouraged to stop out to registration for MRI apt. documented in this encounter Plan of Treatment Care Team Description Date Type Specialty Joes Nieto MD [address] [place] [address] 10/23/2020 Office Visit Hematology and Onco logy Anam Paz, [place] [address] [facility] [address] [place] [address] [phone] 06/09/2021 Follow-Up Transplant Order Schedule Name Type Priority Associated Diag noses 1 Occurrences starting 09/25/2020 until 03/26/2021 Comprehensive metabolic Lab Routine Malign ant neoplasm panel metastatic to bone Immunocompromised patient Prostate cancer Encounter for long-term (current) use of other medications 1 Occurrences starting 09/25/2020 until 03/26/2021 TSH Lab Routine Malignant neopl asm metastatic to bone Immunocompromised patient Prostate cancer Encounter for long-term (current) use of other medications 1 Occurrences starting 09/25/2020 until 03/26/2021 T4, free Lab Routine Malignant neopl asm metastatic to bone Immunocompromised patient Prostate cancer Encounter for long-term (current) use of other medications 1 Occurrences starting 09/25/2020 until 03/26/2021 Lactate dehydrogenase LDH Lab Routine Viridiana gnant neoplasm metastatic to bone Immunocompromised patient Prostate cancer Encounter for long-term (current) use of other medications 1 Occurrences starting 09/25/2020 until 03/26/2021 Platelet count Lab Routine Malignant neopl asm metastatic to bone Immunocompromised patient Prostate cancer Encounter for long-term (current) use of other medications 1 Occurrences starting 09/25/2020 until 03/26/2021 PSA Lab Routine Prostate cancer Health Maintenance Due Date Last Done Comments [...] exists Hepatitis C Screening (B. Completed 02/18/2017 [id number]) HIB Vaccines Aged Out No longer eligible [...] ot Implanted Type Area Manufactur er 02/13/2021 [id number] / / [id number] Dial- Schon 20cm Xl Acu Cth.. 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 Immunocompromised patient Unspecified immunity deficiency Encounter for long-term (current) use o f other medications Malignant melanoma of nose Malignant melanoma of skin of other and unspecified parts of face documented in this encounter Administered Medications Action Date Dose Rate Site Medication Order MAR Action 09/25/2020 10:18 AM EST 120 mg Left Arm denosumab (XGEVA) injection 120 mg Given 120 mg, Subcutaneous, Once, Frida 0 at 1015, For 1 dose 09/25/2020 10:15 AM EST 480 mg 200 mL/hr nivolumab (OPDIVO) 480 mg in sodium New Bag chloride 0.9 % 100 mL chemo infusion 480 mg, Intravenous, Administer over 30 Minutes, Once, Frida 09/25/20 at 1015, Fo r 1 dose documented in this encounter Additional Health Concerns Last Indicated Resolved Time Infection Onset Date 01/10/2012 Transplant Recipient 01/10/2012 documented as of this encounter
--- OUTSIDE RECORDS SUMMARY | 2020-11-24 17:36 | CCD ---
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 Name Role Phone Jeny Mazariegos MD Unavailable Unavailable Jeny Mazariegos MD Unavailable Unavailable Jeny Mazariegos MD Unavailable Unavailable Jeny Mazariegos MD Unavailable Unavailable Jeny Mazariegos MD Unavailable Unavailable Jeny Mazariegos MD Unavailable Unavailable Jeny Mazariegos MD Unavailable Unavailable Jeny Mazariegos MD Unavailable Unavailable Jeny Mazariegos MD Unavailable Unavailable Jeny Mazariegos MD Unavailable Unavailable Jeny Mazariegos MD Unavailable Unavailable Jeny Mazariegos MD Unavailable Unavailable Jeny Mazariegos MD Unavailable Unavailable Jeny Mazariegos MD Unavailable Unavailable Jeny Mazariegos MD Unavailable Unavailable Jeny Mazariegos MD Unavailable Unavailable Jeny Mazariegos MD Unavailable Unavailable Juan Ramon WITT MD Unavailable Unavailable Juan Ramon WITT MD Unavailable Unavailable Juan Ramon WITT MD Unavailable Unavailable Juan Ramon WITT MD Unavailable Unavailable Juan Ramon WITT MD Unavailable Unavailable Juan Ramon WITT MD Unavailable Unavailable Juan Ramon WITT MD Unavailable Unavailable Juan Ramon WITT MD Unavailable Unavailable YOSELIN MEHDI Unavailable Unavailable JASSI CHIANG MD Unavailable Unavailable GAMBJASSI BURRIS MD Unavailable Unavailable GAMBJASSI BURRIS MD Unavailable Unavailable GAMBHIJASSI Sales MD Unavailable Unavailable GAMBHIJASSI Sales MD Unavailable Unavailable GAMBHIJASSI Sales MD Unavailable Unavailable JASSI CHIANG MD Unavailable Unavailable GAMBHIJASSI Sales MD Unavailable Unavailable GAMBHIJASSI Sales MD Unavailable Unavailable GAMBHIMónica, JASSI DUNCAN MD Unavailable Unavailable GAMBHIRJASSI MD Unavailable Unavailable GAMBHIRJASSI MD Unavailable Unavailable Leonard BLANTON MD Unavailable Unavailable Leonard BLANTON MD Unavailable Unavailable Leonard BLANTON MD Unavailable Unavailable Leonard BLANTON MD Unavailable Unavailable Leonard BLANTON MD Unavailable Unavailable Leonard BLANTON MD Unavailable Unavailable Leonard BLANTON MD Unavailable Unavailable Leonard BLANTON MD Unavailable Unavailable Leonard BLANTON MD Unavailable Unavailable Leonard BLANTON MD Unavailable Unavailable Leonard BLANTON MD Unavailable Unavailable Leonard BLANTON MD Unavailable Unavailable Leonard BLANTON MD Unavailable Unavailable Leonard BLANTON MD Unavailable Unavailable Leonard BLANTON MD Unavailable Unavailable Leonard BLANTON MD Unavailable Unavailable Leonard BLANTON MD Unavailable Unavailable Grey CARBALLO MD Unavailable Unavailable Grey CARBALLO MD Unavailable Unavailable Grey CARBALLO MD Unavailable Unavailable Grey CARBALLO MD Unavailable Unavailable Grey CARBALLO MD Unavailable Unavailable Grey CARBALLO MD Unavailable Unavailable Grey CARBALLO MD Unavailable Unavailable Grey CARBALLO MD Unavailable Unavailable Grey CARBALLO MD Unavailable Unavailable Jarrett Waldrop MD Unavailable Unavailable Jarrett Waldrop MD Unavailable Unavailable Jarrett Waldrop MD Unavailable Unavailable Jarrett Waldrop MD Unavailable Unavailable Jarrett Waldrop MD Unavailable Unavailable Jarrett Waldrop MD Unavailable Unavailable Jarrett Waldrop MD Unavailable Unavailable Jarrett Waldrop MD Unavailable Unavailable Jarrett Waldrop MD Unavailable Unavailable Jarrett Waldrop MD Unavailable Unavailable Jarrett Waldrop MD Unavailable Unavailable Jarrett Waldrop MD Unavailable Unavailable Jarrett Waldrop MD Unavailable Unavailable Jarrett Waldrop MD Unavailable Unavailable Jarrett Waldrop MD Unavailable Unavailable Jarrett Waldrop MD Unavailable Unavailable Jarrett Waldrop MD Unavailable Unavailable Jarrett Waldrop MD Unavailable Unavailable Jarrett Waldrop MD Unavailable Unavailable Jarrett Waldrop MD Unavailable Unavailable Jarrett Waldrop MD Unavailable Unavailable Jarrett Waldrop MD Unavailable Unavailable Jarrett Waldrop MD Unavailable Unavailable Jarrett Waldrop MD Unavailable Unavailable Jarrett Waldrop MD Unavailable Unavailable Jarrett Waldrop MD Unavailable Unavailable Jarrett Waldrop MD Unavailable Unavailable Jarrett Waldrop MD Unavailable Unavailable CELINE, BASIL LEW PA Unavailable Unavailable CELINE, BASIL LEW PA Unavailable Unavailable CELINE, BASIL LEW PA Unavailable Unavailable CELINE, BASIL LEW PA Unavailable Unavailable CELINE, BASIL LEW PA Unavailable Unavailable CELINE, BASIL LEW PA Unavailable Unavailable CELINE, BASIL LEW PA Unavailable Unavailable CELINE, BASIL LEW PA Unavailable Unavailable CELINE, BASIL LEW PA Unavailable Unavailable CELINE, BASIL LEW PA Unavailable Unavailable CELINE, BASIL LEW PA Unavailable Unavailable CELINE, BASIL LEW PA Unavailable Unavailable CELINE, BASIL LEW PA Unavailable Unavailable CELINE, BASIL LEW PA Unavailable Unavailable CELINE, BASIL LEW PA Unavailable Unavailable CELINE, BASIL LEW PA Unavailable Unavailable CELINE, BASIL LEW PA Unavailable Unavailable CELINE, BASIL LEW PA Unavailable Unavailable CELINE, BASIL LEW PA Unavailable Unavailable CELINE, BASIL LEW PA Unavailable Unavailable CELINE, BASIL LEW PA Unavailable Unavailable Paoletti, J Breonna Unavailable Unavailable Paoletti, J Breonna Unavailable Unavailable Paoletti, J Breonna Unavailable Unavailable Paoletti, J Breonna Unavailable Unavailable Paoletti, J Breonna Unavailable Unavailable Paoletti, J Breonna Unavailable Unavailable Paoletti, J Breonna Unavailable Unavailable Paoletti, J Breonna Unavailable Unavailable Paoletti, J Breonna Unavailable Unavailable Paoletti, J Breonna Unavailable Unavailable Paoletti, J Breonna Unavailable Unavailable Paoletti, J Breonna Unavailable Unavailable Paoletti, J Breonna Unavailable Unavailable Paoletti, J Breonna Unavailable Unavailable Paoletti, J Breonna Unavailable Unavailable Paoletti, J Breonna Unavailable Unavailable Lakshmi Corral MD Unavailable Unavailable Corral, C Noam MD Unavailable Unavailable Corral, C Noam MD Unavailable Unavailable Corral, C Noam MD Unavailable Unavailable Corral, C Noam MD Unavailable Unavailable Corral, C Noam MD Unavailable Unavailable Corral, C Noam MD Unavailable Unavailable Corral, C Noam MD Unavailable Unavailable Corral, C Noam MD Unavailable Unavailable Corral, C Noam MD Unavailable Unavailable Corral, C Noam MD Unavailable Unavailable Corral, C Noam MD Unavailable Unavailable Corral, C Noam MD Unavailable Unavailable Corral, C Noam MD Unavailable Unavailable Corral, C Noam MD Unavailable Unavailable Corral, C Noam MD Unavailable Unavailable Corral, C Noam MD Unavailable Unavailable Corral, C Noam MD Unavailable Unavailable Corral, C Noam MD Unavailable Unavailable Corral, C Noam MD Unavailable Unavailable Corral, C Noam MD Unavailable Unavailable Corral, C Noam MD Unavailable Unavailable Corral, C Noam MD Unavailable Unavailable Corral, C Noam MD Unavailable Unavailable Corral, C Noam MD Unavailable Unavailable Corral, C Noam MD Unavailable Unavailable Corral, C Noam MD Unavailable Unavailable Corral, C Noam MD Unavailable Unavailable Corral, C Noam MD Unavailable Unavailable Corral, C Noam MD Unavailable Unavailable Corral, C Noam MD Unavailable Unavailable Corral, C Noam MD Unavailable Unavailable Corral, C Noam MD Unavailable Unavailable Corral, C Noam MD Unavailable Unavailable Corral, C Noam MD Unavailable Unavailable Corral, C Noam MD Unavailable Unavailable Corral, C Noam MD Unavailable Unavailable Corral, C Noam MD Unavailable Unavailable Corral, C Noam MD Unavailable Unavailable Corral, C Noam MD Unavailable Unavailable Corral, C Noam MD Unavailable Unavailable Corral, C Noam MD Unavailable Unavailable Corral, C Noam MD Unavailable Unavailable Corral, C Noam MD Unavailable Unavailable Corral, C Noam MD Unavailable Unavailable Corral, C Noam MD Unavailable Unavailable Corral, C Noam MD Unavailable Unavailable Corral, C Noam MD Unavailable Unavailable Corral, C Noam MD Unavailable Unavailable Corral, C Noam MD Unavailable Unavailable Corral, C Noam MD Unavailable Unavailable Corral, C Noam MD Unavailable Unavailable Corral, C Noam MD Unavailable Unavailable Corral, C Noam MD Unavailable Unavailable Corral, C Noma MD Unavailable Unavailable Corral, C Noam MD Unavailable Unavailable Corral, C Noam MD Unavailable Unavailable Corral, C Noam MD Unavailable Unavailable Corral, C Noam MD Unavailable Unavailable Corral, C Noam MD Unavailable Unavailable Corral, C Noam MD Unavailable Unavailable Corral, C Noam MD Unavailable Unavailable GLEN NIETO MD Unavailable Unavailable GLEN NIETO MD Unavailable Unavailable REBEKAH, GLEN MD Unavailable Unavailable REBEKAH, GLEN MD Unavailable Unavailable REBEKAH, GLEN MD Unavailable Unavailable REBEKAH, GLEN MD Unavailable Unavailable REBEKAH, GLEN MD Unavailable Unavailable REBEKAH, GLEN MD Unavailable Unavailable REBEKAH, GLEN MD Unavailable Unavailable REBEKAH, GLEN MD Unavailable Unavailable REBEKAH, GLEN MD Unavailable Unavailable REBEKAH, GLEN MD Unavailable Unavailable REBEKAH, GLEN MD Unavailable Unavailable RBEEKAH, GLEN MD Unavailable Unavailable REBEKAH, GLEN MD Unavailable Unavailable REBEKAH, GLEN MD Unavailable Unavailable REBEKAH, GLEN MD Unavailable Unavailable REBEKAH, GLEN MD Unavailable Unavailable REBEKAH, GLEN MD Unavailable Unavailable REBEKAH, GLEN MD Unavailable Unavailable REBEKAH, GLEN MD Unavailable Unavailable REBEKAH, GLEN MD Unavailable Unavailable REBEKAH, GLEN MD Unavailable Unavailable REBEKAH, GLEN MD Unavailable Unavailable REBEKAH, GLEN MD Unavailable Unavailable REBEKAH, GLEN MD Unavailable Unavailable REBEKAH, GLEN MD Unavailable Unavailable REBEKAH, GLEN MD Unavailable Unavailable REBEKAH, GLEN MD Unavailable Unavailable REBEKAH, GLEN MD Unavailable Unavailable REBEKAH, GLEN MD Unavailable Unavailable REBEKAH, GLEN MD Unavailable Unavailable REBEKAH, GLEN MD Unavailable Unavailable REBEKAH, GLEN MD Unavailable Unavailable REBEKAH, GLEN MD Unavailable Unavailable REBEKAH, GLEN MD Unavailable Unavailable REBEKAH, GLEN MD Unavailable Unavailable REBEKAH, GLEN MD Unavailable Unavailable REBEKAH, GLEN MD Unavailable Unavailable REBEKAH, GLEN MD Unavailable Unavailable REBEKAH, GLEN MD Unavailable Unavailable REBEKAH, GLEN MD Unavailable Unavailable REBEKAH, GLEN MD Unavailable Unavailable REBEKAH, GLEN MD Unavailable Unavailable REBEKAH, GLEN MD Unavailable Unavailable REBEKAH, GLEN MD Unavailable Unavailable REBEKAH, GLEN MD Unavailable Unavailable REBEKAH, GLEN MD Unavailable Unavailable REBEKAH, GLEN MD Unavailable Unavailable REBEKAH, GLEN MD Unavailable Unavailable REBEKAH, GLEN MD Unavailable Unavailable REBEKAH, GLEN MD Unavailable Unavailable REBEKAH, GLEN MD Unavailable Unavailable REBEKAH, GLEN MD Unavailable Unavailable REBEKAH, GLEN MD Unavailable Unavailable REBEKAH, GLEN MD Unavailable Unavailable REBEKAH, GLEN MD Unavailable Unavailable REBEKAH, GLEN MD Unavailable Unavailable REBEKAH, GLEN MD Unavailable Unavailable REBEKAH, GLEN MD Unavailable Unavailable REBEKAH, GLEN MD Unavailable Unavailable REBEKAH, GLEN MD Unavailable Unavailable REBEKAH, GLEN MD Unavailable Unavailable REBEKAH, GLEN MD Unavailable Unavailable REBEKAH, GLEN MD Unavailable Unavailable REBEKAH, GLEN MD Unavailable Unavailable REBEKAH, GLEN MD Unavailable Unavailable REBEKAH, GLEN MD Unavailable Unavailable REBEKAH, GLEN MD Unavailable Unavailable REBEKAH, GLEN MD Unavailable Unavailable REBEKAH, GLEN MD Unavailable Unavailable REBEKAH, GLEN MD Unavailable Unavailable REBEKAH, GLEN MD Unavailable Unavailable REBEKAH, GLEN MD Unavailable Unavailable REBEKAH, GLEN MD Unavailable Unavailable REBEKAH, GLEN MD Unavailable Unavailable REBEKAH, GLEN MD Unavailable Unavailable REBEKAH, GLEN MD Unavailable Unavailable REBEKAH, GLEN MD Unavailable Unavailable Manfred JUAREZ [id number] Unavailable Unavailable Paula Cruz MD Unavailable Unavailable Paula Cruz MD Unavailable Unavailable Paula Cruz MD Unavailable Unavailable AnthonyPaula MD Unavailable Unavailable Anthony B Kendall GUSTAFSON Unavailable Unavailable Anthony B Kendall GUSTAFSON Unavailable Unavailable Anthony B Kendall GUSTAFSON Unavailable Unavailable Anthony B Kendall GUSTAFSON Unavailable Unavailable Anthony, B Kendall GUSTAFSON Unavailable Unavailable Anthony, B Kendall GUSTAFSON Unavailable Unavailable Anthony, B Kendall GUSTAFSON Unavailable Unavailable Anthony, B Kendall GUSTAFSON Unavailable Unavailable Anthony, B Kendall GUSTAFSON Unavailable Unavailable Anthony, B Kendall GUSTAFSON Unavailable Unavailable Anthony B Kendall GUSTAFSON Unavailable Unavailable Anthony, B Kendall GUSTAFSON Unavailable Unavailable Anthony, B Kendall GUSTAFSON Unavailable Unavailable Anthony, B Kendall GUSTAFSON Unavailable Unavailable Anthony, B Kendall GUSTAFSON Unavailable Unavailable Anthony B Kendall GUSTAFSON Unavailable Unavailable Anthony, B Kendall GUSTAFSON Unavailable Unavailable Anthony, B Kendall GUSTAFSON Unavailable Unavailable Anthony B Kendall GUSTAFSON Unavailable Unavailable Anthony B Kendall GUSTAFSON Unavailable Unavailable Anthony B Kendall GUSTAFSON Unavailable Unavailable Anthony B Kendall GUSTAFSON Unavailable Unavailable Anthony B Kendall GUSTAFSON Unavailable Unavailable Anthony B Kendall GUSTAFSON Unavailable Unavailable Sivan OCASIO MD Unavailable Unavailable Sivan OCASIO MD Unavailable Unavailable Sivan OCASIO MD Unavailable Unavailable Sivan OCASIO MD Unavailable Unavailable Sivan OCASIO MD Unavailable Unavailable Sivan OCASIO MD Unavailable Unavailable Sivan OCASIO MD Unavailable Unavailable Sivan OCASIO MD Unavailable Unavailable Gery KATE MD Unavailable Unavailable Grey KATE MD Unavailable Unavailable Grey KATE MD Unavailable Unavailable Grey KATE MD Unavailable Unavailable Grey KATE MD Unavailable Unavailable Grey KATE MD Unavailable Unavailable Grey KATE MD Unavailable Unavailable Grey KATE MD Unavailable Unavailable Grey KATE MD Unavailable Unavailable Grey KATE MD Unavailable Unavailable Grey KATE MD Unavailable Unavailable Grey KATE MD Unavailable Unavailable Grey KATE MD Unavailable Unavailable Grey KATE MD Unavailable Unavailable Grey KATE MD Unavailable Unavailable Grey KATE MD Unavailable Unavailable Grey KATE MD Unavailable Unavailable Grey KATE MD Unavailable Unavailable Grey KATE MD Unavailable Unavailable Grye KATE MD Unavailable Unavailable Grey KATE MD Unavailable Unavailable Grey KATE MD Unavailable Unavailable Grey KATE MD Unavailable Unavailable Grey KATE MD Unavailable Unavailable Grey KATE MD Unavailable Unavailable Grey KATE MD Unavailable Unavailable Grey KATE MD Unavailable Unavailable Grey KATE MD Unavailable Unavailable Grey KATE MD Unavailable Unavailable Grey KATE MD Unavailable Unavailable Grey KATE MD Unavailable Unavailable Grey KATE MD Unavailable Unavailable Grey KATE MD Unavailable Unavailable Grey KATE MD Unavailable Unavailable Grey KATE MD Unavailable Unavailable Grey KATE MD Unavailable Unavailable Grey KATE MD Unavailable Unavailable Grey KATE MD Unavailable Unavailable Grey KATE MD Unavailable Unavailable Grey KATE MD Unavailable Unavailable Grey KATE MD Unavailable Unavailable Grey KATE MD Unavailable Unavailable Grey KATE MD Unavailable Unavailable Grey KATE MD Unavailable Unavailable Grey KATE MD Unavailable Unavailable Grey KATE MD Unavailable Unavailable Grey KATE MD Unavailable Unavailable Grey KATE MD Unavailable Unavailable Grey KATE MD Unavailable Unavailable Grey KATE MD Unavailable Unavailable Grey KATE MD Unavailable Unavailable Grey KATE MD Unavailable Unavailable Grey KATE MD Unavailable Unavailable Grey KATE MD Unavailable Unavailable Grey KATE MD Unavailable Unavailable Grey KATE MD Unavailable Unavailable Grey KATE MD Unavailable Unavailable Grey KATE MD Unavailable Unavailable Grey KATE MD Unavailable Unavailable Grey KATE MD Unavailable Unavailable Grey KATE MD Unavailable Unavailable Grey KATE MD Unavailable Unavailable Grey KATE MD Unavailable Unavailable Grey KATE MD Unavailable Unavailable Grey KATE MD Unavailable Unavailable Grey KATE MD Unavailable Unavailable Eugenia Erazo MD Unavailable Unavailable Eugenia Erazo MD Unavailable Unavailable Eugenia Erazo MD Unavailable Unavailable KaceyEugenia MD Unavailable Unavailable Kacey, P Khalid MD Unavailable Unavailable Kacey, P Khalid MD Unavailable Unavailable Kacey, P Khalid MD Unavailable Unavailable Kacey, P Khalid MD Unavailable Unavailable Kacey, P Khalid MD Unavailable Unavailable Kacey, P Khalid MD Unavailable Unavailable Kacey, P Khalid MD Unavailable Unavailable Kacey, P Khalid MD Unavailable Unavailable Kacey, P Khalid MD Unavailable Unavailable Kacey, P Khalid MD Unavailable Unavailable Kacey, P Khalid MD Unavailable Unavailable Kacey, P Khalid MD Unavailable Unavailable Kacey, P Khalid MD Unavailable Unavailable Kacey, P Khalid MD Unavailable Unavailable Kacey, P Khalid MD Unavailable Unavailable Kacey, P Khalid MD Unavailable Unavailable Kacey, P Khalid MD Unavailable Unavailable Kacey, P Khalid MD Unavailable Unavailable Kacey, P Khalid MD Unavailable Unavailable Kacey, P Khalid MD Unavailable Unavailable Kacey, P Khalid MD Unavailable Unavailable Kacey, P Khalid MD Unavailable Unavailable Kacey, P Khalid MD Unavailable Unavailable Kacey, P Khalid MD Unavailable Unavailable Kacey, P Khalid MD Unavailable Unavailable Kacey, P Khalid MD Unavailable Unavailable Kacey, P Khalid MD Unavailable Unavailable Kacey, P Khalid MD Unavailable Unavailable Kacey, P Khalid MD Unavailable Unavailable Kacey, P Khalid MD Unavailable Unavailable Kacey, P Khalid MD Unavailable Unavailable Kacey, P Khalid MD Unavailable Unavailable Kacey, P Khalid MD Unavailable Unavailable Kacey, P Khalid MD Unavailable Unavailable Kacey, P Narayanalid MD Unavailable Unavailable Kacey, P Khalijuan ramon MD Unavailable Unavailable Kacey, P Khalid MD Unavailable Unavailable Kacey, P Khalid MD Unavailable Unavailable Kacey, P Khalid MD Unavailable Unavailable Kacey, P Khalid MD Unavailable Unavailable Kacey, P Khalid MD Unavailable Unavailable Kacey, P Khalid MD Unavailable Unavailable Kacey, P Khalid MD Unavailable Unavailable Kacey, P Khalid MD Unavailable Unavailable Kacey, P Khalijuan ramon MD Unavailable Unavailable Kacey, P Narayanalijuan ramon GUSTAFSON Unavailable Unavailable Og Lauren MD Unavailable Unavailable Og Lauren MD Unavailable Unavailable Og Lauren MD Unavailable Unavailable Og Lauren MD Unavailable Unavailable Og Lauren MD Unavailable Unavailable Og Lauren MD Unavailable Unavailable Og Lauren MD Unavailable Unavailable Og Lauren MD Unavailable Unavailable Og Lauren MD Unavailable Unavailable Og Lauren MD Unavailable Unavailable Og Lauren MD Unavailable Unavailable Og Lauren MD Unavailable Unavailable Og Lauren MD Unavailable Unavailable Og Lauren MD Unavailable Unavailable Og Laruen MD Unavailable Unavailable Og Lauren MD Unavailable Unavailable Og Lauren MD Unavailable Unavailable Og Lauren MD Unavailable Unavailable Og Lauren MD Unavailable Unavailable Og Lauren MD Unavailable Unavailable Og Lauren MD Unavailable Unavailable Og Lauren MD Unavailable Unavailable Og Lauren MD Unavailable Unavailable Og Lauren MD Unavailable Unavailable Og Lauren MD Unavailable Unavailable Og Lauren MD Unavailable Unavailable Og Lauren MD Unavailable Unavailable Og Lauren MD Unavailable Unavailable Og Lauren MD Unavailable Unavailable Og Lauren MD Unavailable Unavailable Og Lauren MD Unavailable Unavailable Og Lauren MD Unavailable Unavailable Og Lauren MD Unavailable Unavailable Og Lauren MD Unavailable Unavailable Og Lauren MD Unavailable Unavailable Og Lauren MD Unavailable Unavailable Og Lauren MD Unavailable Unavailable Og Lauren MD Unavailable Unavailable Og Lauren MD Unavailable Unavailable Leonard Galindo MD Unavailable Unavailable Leonard Galindo MD Unavailable Unavailable Leonard Galindo MD Unavailable Unavailable Leonard Galindo MD Unavailable Unavailable Leonard Galindo MD Unavailable Unavailable Leonard Galindo MD Unavailable Unavailable Leonard Galindo MD Unavailable Unavailable Leonard Galindo MD Unavailable Unavailable Leonard Galindo MD Unavailable Unavailable Leonard Galindo MD Unavailable Unavailable Leonard Galindo MD Unavailable Unavailable Jeana St MD Unavailable Unavailable Jeana St MD Unavailable Unavailable Jeana St MD Unavailable Unavailable Cederstrand, Jeana Contreras MD Unavailable Unavailable Cederstrand, Jeana Contreras MD Unavailable Unavailable Cederstrand, Jeana Contreras MD Unavailable Unavailable Cederstrand, Jeana Contreras MD Unavailable Unavailable Cederstrand, Jeana Contreras MD Unavailable Unavailable Deionerstrand, Jeana Contreras MD Unavailable Unavailable Cederstrand, Jeana Contreras MD Unavailable Unavailable Cederstrand, Jeana Contreras MD Unavailable Unavailable Cederstrand, Jeana Contreras MD Unavailable Unavailable Cederstrand, Jeana Contreras MD Unavailable Unavailable Cederstrand, Jeana Contreras MD Unavailable Unavailable Cederstrand, Jeana Contreras MD Unavailable Unavailable SYMENOW, G CHRISTOPHER PA Unavailable Unavailable SYMENOW, G CHRISTOPHER PA Unavailable Unavailable SYMENOW, G CHRISTOPHER PA Unavailable Unavailable SYMENOW, G CHRISTOPHER PA Unavailable Unavailable SYMENOW, G CHRISTOPHER PA Unavailable Unavailable SYMENOW, G CHRISTOPHER PA Unavailable Unavailable SYMENOW, G CHRISTOPHER PA Unavailable Unavailable SYMENOW, G CHRISTOPHER PA Unavailable Unavailable SYMENOW, G CHRISTOPHER PA Unavailable Unavailable SYMENOW, G CHRISTOPHER PA Unavailable Unavailable SYMENOW, G CHRISTOPHER PA Unavailable Unavailable SYMENOW, G CHRISTOPHER PA Unavailable Unavailable SYMENOW, G CHRISTOPHER PA Unavailable Unavailable SYMENOW, G CHRISTOPHER PA Unavailable Unavailable SYMENOW, G CHRISTOPHER PA Unavailable Unavailable SYMENOW, G CHRISTOPHER PA Unavailable Unavailable SYMENOW, G CHRISTOPHER PA Unavailable Unavailable YARELIS, L DEBORA PA Unavailable Unavailable YARELIS, L DEBORA PA Unavailable Unavailable YARELIS, L DEBORA PA Unavailable Unavailable YARELIS, L DEBORA PA Unavailable Unavailable YARELIS, L DEBORA PA Unavailable Unavailable YARELIS, L DEBORA PA Unavailable Unavailable YARELIS, L DEBORA PA Unavailable Unavailable YARELIS, L DEBORA PA Unavailable Unavailable YARELIS, L DEBORA PA Unavailable Unavailable YARELIS, L DEBORA PA Unavailable Unavailable YARELIS, L DEBORA PA Unavailable Unavailable YARELIS, L DEBORA PA Unavailable Unavailable AYRELIS, L DEBORA PA Unavailable Unavailable YARELIS, L DEBORA PA Unavailable Unavailable YARELIS, L DEBORA PA Unavailable Unavailable YARELIS, L DEBORA PA Unavailable Unavailable YARELIS, L DEBORA PA Unavailable Unavailable YARELIS, L DEBORA PA Unavailable Unavailable YARELIS, L DEBORA PA Unavailable Unavailable Jarrett Waldrop MD Unavailable Unavailable Jarrett Waldrop MD Unavailable Unavailable Jarrett Waldrop MD Unavailable Unavailable [place], Jarrett MD Unavailable Unavailable [place], Jarrett MD Unavailable Unavailable [place], Jarrett MD Unavailable Unavailable [place], Jarrett MD Unavailable Unavailable [place], Jarrett MD Unavailable Unavailable [place], Jarrett MD Unavailable Unavailable [place], Jarrett MD Unavailable Unavailable [place], Jarrett MD Unavailable Unavailable [place], Jarrett MD Unavailable Unavailable [place], Jarrett MD Unavailable Unavailable [place], Jarrett MD Unavailable Unavailable [place], Jarrett MD Unavailable Unavailable [place], Jarrett MD Unavailable Unavailable [place], Jarrett MD Unavailable Unavailable [place], Jarrett MD Unavailable Unavailable [place], Jarrett MD Unavailable Unavailable [place], Jarrett MD Unavailable Unavailable [place], Jarrett MD Unavailable Unavailable [place], Jarrett MD Unavailable Unavailable [place], Jarrett MD Unavailable Unavailable [place], Jarrett MD Unavailable Unavailable [place], Jarrett MD Unavailable Unavailable [place], Jarrett MD Unavailable Unavailable [place], Jarrett MD Unavailable Unavailable [place], Jarrett MD Unavailable Unavailable Paoletti, J Breonna Unavailable Unavailable Paoletti, J Breonna Unavailable Unavailable Paoletti, J Breonna Unavailable Unavailable Paoletti, J Breonna Unavailable Unavailable Paoletti, J Breonna Unavailable Unavailable Paoletti, J Breonna Unavailable Unavailable Paoletti, J Breonna Unavailable Unavailable Paoletti, J Breonna Unavailable Unavailable Paoletti, J Breonna Unavailable Unavailable Paoletti, J Breonna Unavailable Unavailable Paoletti, J Breonna Unavailable Unavailable Paoletti, J Breonna Unavailable Unavailable Paoletti, J Breonna Unavailable Unavailable Paoletti, J Breonna Unavailable Unavailable Paoletti, J Breonna Unavailable Unavailable Paoletti, J Breonna Unavailable Unavailable SYSTEM IN, NOT IN PROVIDER Unavailable Unavailable WHEELER, D PANCHITO Unavailable Unavailable WHEELER, D PANCHITO Unavailable Unavailable WHEELER, D PANCHITO Unavailable Unavailable WHEELER, D PANCHITO Unavailable Unavailable WHEELER, D PANCHITO Unavailable Unavailable WHEELER, D PANCHITO Unavailable Unavailable WHEELER, D PANCHITO Unavailable Unavailable WHEELER, D PANCHITO Unavailable Unavailable WHEELER, D PANCHITO Unavailable Unavailable WHEELER, D PANCHITO Unavailable Unavailable WHEELER, D PANCHITO Unavailable Unavailable WHEELER, D PANCHITO Unavailable Unavailable WHEELER, D PANCHITO Unavailable Unavailable WHEELER, D PANCHITO Unavailable Unavailable WHEELER, D PANCHITO Unavailable Unavailable WHEELER, D PANCHITO Unavailable Unavailable WHEELER, D PANCHITO Unavailable Unavailable WHEELER, D PANCHITO Unavailable Unavailable WHEELER, D PANCHITO Unavailable Unavailable WHEELER, D PANCHITO Unavailable Unavailable Re-disclosure Warning The records that you are about to access may contain information from federally-assisted alcohol or drug abuse programs. If such information is present, then the following federally mandated warning applies: This information has been disclosed to you from records protected by federal confidentiality rules (42 CFR part 2). The federal rules prohibit you from making any further disclosure of this information unless further disclosure is expressly permitted by the written consent of the person to whom it pertains or as otherwise permitted by 42 CFR part 2. A general authorization for the release of medical or other information is NOT sufficient for this purpose. The Federal rules restrict any use of the information to criminally investigate or prosecute any alcohol or drug abuse patient.The records that you are about to access may contain highly sensitive health information, the redisclosure of which is protected by Article 27-F of the [facility] Public Health law. If you continue you may have access to information: Regarding HIV / AIDS; Provided by facilities licensed or operated by the [facility] Office of Mental Health; or Provided by the [facility] Office for People With Developmental Disabilities. If such information is present, then the following [facility] mandated warning applies: This information has been disclosed to you from confidential records which are protected by state law. State law prohibits you from making any further disclosure of this information without the specific written consent of the person to whom it pertains, or as otherwise permitted by law. Any unauthorized further disclosure in violation of state law may result in a fine or group home sentence or both. A general authorization for the release of medical or other information is NOT sufficient authorization for further disc losure. Allergies and Adverse Reactions Type Description Substance Reaction Status Data Source(s ) Drug Class NO KNOWN ALLERGIES NO KNOWN ALLERGIES [facility] Encounters Encounter Providers Location Date Indications Data Source(s ) Outpatient Attender: GLEN NIETO MD 12/25/2020 12:00:00 A M EDT [facility] Outpatient Attender: GLEN Lange: GLEN NIETO MD 11/20/2020 12:00:00 AM EST Malignant melanoma of skin, unspecified [facility] Malignant melanoma of skin, unspecified Outpatient Attender: GLEN Lange: GLEN NIETO MD [id number] 10/23/2020 12:00:00 AM EST - 10/23/2020 11:42:46 AM EST Secondary malignant neoplasm of bone [facility] Secondary malignant neoplasm of bone Outpatient Attender: GLEN NIETO MDReferrer: GLEN NIETO MD -ONCOSW 09/25/2020 12:00:00 AM EST - 09/25/2020 11:07:35 AM EST Other ocean transportation intermediary (current) drug therapy [facility] Other longterm (current) drug therapy Outpatient Attender: GLEN NIETO MDReferrer: GLEN NIETO MD -ONCOSW 08/28/2020 12:00:00 AM EST - 08/28/2020 02:34:43 PM EST Malignant melanoma of nose [facility] Malignant melanoma of nose Outpatient Attender: GLEN NIETO MDReferrer: GLEN NIETO MD -ONCOSW 07/31/2020 12:00:00 AM EDT - 07/31/2020 02:45:27 PM EDT Malignant neoplasm of prostate [facility] Malignant neoplasm of prostate Outpatient Attender: Diane Oseguera/Benjie/Xavier/ Alvarez 07/10/2020 09:00:00 AM EDT [facility] ([facility] Outpatient Attender: Regan Erazo MDReferrer: Regan brownlee MD 07/08/2020 09:00:00 AM EDT - 07/08/2020 09:00:00 AM EDT [facility] Outpatient Attender: Noam Corral MD 07/04/2020 02:00:00 P [facility] Outpatient Attender: GLEN NIETO MDReferrer: GLEN NIETO MD -ONCOSW 07/03/2020 12:00:00 AM EDT - 07/03/2020 04:41:43 PM EDT Secondary malignant neoplasm of bone [facility] Secondary malignant neoplasm of bone Outpatient Attender: Breonna Castillo nder: GET JUAREZ [id number]: GLEN NIETO MD -ONCOSW 06/05/2020 12:00:00 AM EDT - 06/05/2020 04:14:29 PM EDT Secondary malignant neoplasm of bone [facility] Secondary malignant neoplasm of bone Outpatient Attender: GLEN NIETO MDReferrer: GLEN MayerA-ONCOSW 05/08/2020 12:00:00 AM EDT - 05/08/2020 01:43:19 PM EDT Encounter for therapeutic drug level monitoring [facility] Encounter for therapeutic drug level mon itoring Outpatient Attender: Diane Oseguera/Benjie/Xavier/ Alvarez 04/17/2020 09:15:00 AM EDT [facility] ([facility] Outpatient Attender: GLEN NIETO MDReferrer: GLEN Mayer-ONCOSW 04/10/2020 12:00:00 AM EDT - 04/10/2020 02:41:58 PM EDT Secondary malignant neoplasm of bone [facility] Secondary malignant neoplasm of bone Outpatient Attender: Breonna Hastings 04/10/2020 12:00:00 AM EDT [facility] Outpatient 04/04/2020 12:00:00 AM [facility] Outpatient 04/03/2020 12:00:00 AM EDT [facility] Outpatient 03/27/2020 12:00:00 AM EDT [facility] Outpatient 03/20/2020 12:00:00 AM EDT [facility] Outpatient Attender: GLEN NIETO MDReferrer: GLEN NIETO MD -ONCOSW 03/13/2020 12:00:00 AM EDT - 03/13/2020 11:47:38 AM EDT Malignant melanoma of nose [facility] Malignant melanoma of nose Outpatient Attender: GLEN NIETO MD 03/13/2020 12:00:00 A M EDT [facility] Outpatient 03/12/2020 09:14:00 PM EDT [facility] Inpatient Attender: Dean Jolly r: LAURA BLANTON MDAttender: AUDREY CARBALLO MDAttender: DAKOTA CHIANG MDAttender: BRODY WITT MDAdmitter: AUDREY CARBALLO MDReferrer: PROVIDER SYSTEM IN 02/08 12:00:00 AM EDT - 03/12/2020 01:02:00 PM EDT [facility] Patient discharged. Outpatient Attender: GLEN NIETO MDReferrer: GLEN NIETO MD 03/06/2020 12:00:00 AM EDT [facility] Outpatient Referrer: Kendall Cruz MD 03/04/2020 12:00:0 0 AM [facility] Outpatient Referrer: Kendall Cruz MD 03/04/2020 12:00:0 0 AM [facility] Inpatient Attender: Kendall Cruz MD Admitter: Kendall Cruz MDConsultant: JARVIS KATE MD [id number] 03/01/2020 12:00:00 AM EDT - 03/05/2020 05:02:00 PM EDT Kidney transplant status [facility] Kidney transplant status Patient discharged. Outpatient Attender: GLEN NIETO MDReferrer: GLEN NIETO MD [id number] 02/14/2020 12:00:00 AM EDT - 02/14/2020 03:39:05 PM EDT Malignant melanoma of [facility] Malignant melanoma of nose Outpatient Attender: Breonna Hastings 02/07/2020 01:03 :00 PM EDT C43.31 Malignant melanoma of [facility] C43.31 Malignant melanoma of nose Outpatient Attender: Og Lauren MDRefer rer: GLEN NIETO MD A-OSRONC 02/07/2020 12:00:00 AM [facility] Outpatient Attender: MEHDI Salvadorferrer: GLEN NIETO MD 01/14/2020 12:00:00 AM EDT Malignant melanoma of [facility] Malignant melanoma of nose Outpatient Attender: Og Lauren MD [id number] 01/10/2020 12:27:06 PM [facility] Outpatient Attender: GLEN MayerA-ONCOSW 2019 12:00:00 AM EDT - 01/10/2020 12:41:23 PM EDT Malignant melanoma of [facility] Malignant melanoma of nose Outpatient Attender: Og Lauren MDReferrer: GLEN NIETO MD 01/10/2020 12:00:00 AM [facility] Outpatient Referrer: GLEN NIETO MD 01/09/2020 12:00:00 A M [facility] Outpatient Referrer: GLEN NIETO MD 01/08/2020 12:00:00 A M [facility] Outpatient Attender: Og Lauren MD 01/07/2020 12:00:00 AM EDT [facility] Outpatient Attender: Og Lauren MD [facility]07[facility] GLEN Villasenor cici: CHARIS OCASIO MDAdmitter: GLEN Coteerrer: PANCHITO JEFFRIESNARD [id number] 01/04/2020 12:00: 00 AM EDT - 01/07/2020 12:55:00 PM EDT Malignant melanoma of skin, unspecified [facility] Malignant melanoma of skin, unspecified Patient discharged. Outpatient Attender: Og Griffin-JASONCTMónica 01/04/2020 12:00:00 AM EDT - 01/07/2020 11:15:26 AM [facility] Outpatient Attender: Og Griffin-ALVA 01/04/2020 12:00:00 AM EDT [facility] Outpatient Attender: Og Rodriguez geovany: John Mazariegos MD Leonard-ALVA 01/04/2020 12:00:00 AM EDT Malignant melanoma of unspe cified eyelid, including [facility] Malignant melanoma [facility] Attender: Jarrett Waldrop MD [id number] [id number] 12:50:00 PM EDT - 12/21/2019 12:51:00 PM EDT PI/STAGING NASAL CAVITY [facility] PI/STAGING NASAL CAVITY Patient discharged. Outpatient Attender: Jarrett Oseguera/Benjie/Xavier/Reind l 12/20/2019 08:50:00 AM EDT [facility] ([facility]) Outpatient 12/17/2019 11:40:00 AM EDT [facility] Outpatient Attender: Jarrett Oseguera/Benjie/Xavier/Reind l 10/29/2019 10:50:00 AM EST [facility] ([facility] Outpatient Attender: Jarrett Oseguera/Benjie/Xavier/Reind l 10/15/2019 01:30:00 PM EST [facility] ([facility] Emergency Attender: RAINA Figueroa: Regan Erazo MD 10/11/2019 01:53:00 PM EST - 10/11/2019 06:12:00 PM [facility] Patient discharged. Outpatient 09/25/2019 09:06:00 PM EST [facility] Emergency Attender: LEW Gilman: Zack PABON EMERGENCY ROOM-ER 02/17/2017 06:00:00 PM EDT - 02/17/2017 08:30:00 PM [facility] Medications Medication Brand Name Start Date Product Form Dose Route Admi nistrative Instructions Pharmacy Instructions Status Indications Reaction Description Data Source(s) 324 mg (38 mg iron) 11/09/2020 12:00:00 AM EST tablet 60 TAKE 1 TABLET BY MOUTH TWO TIMES A DAY TAKE 1 TABLET BY MOUTH TWO TIMES A DAY SOLD: 11/11/2020 [facility] 10 mg 11/09/2020 12:00:00 AM EST tablet 90 TAKE ONE TABLET BY MOUTH AT BEDTIME TAKE ONE TABLET BY MOUTH AT BEDTIME SOLD: 11/11/2020 [facility] [id number] 11/01/2020 12:00:00 AM EST Cream 480 APPLY TO TRUNK AND EXTREMETIES TWO TIMES A DAY NEEDED FOR ITCH APPLY TO TRUNK AND EXTREMETIES TWO TIMES A DAY NEEDED FOR ITCH SOLD: 11/11/2020 [facility] [id number] 11/01/2020 12:00:00 AM EST Cream 240 APPLY TO TRUNK AND EXTREMETIES TWO TIMES A DAY NEEDED FOR ITCH APPLY TO TRUNK AND EXTREMETIES TWO TIMES A DAY NEEDED FOR ITCH SOLD: 11/02/2020 [facility] 25 mg 10/31/2020 12:00:00 AM EST tablet 60 TAKE ONE TABLET BY MOUTH TWICE A DAY TAKE ONE TABLET BY MOUTH TWICE A DAY SOLD: 11/01/2020 [facility] 50 mcg/hr 10/31/2020 12:00:00 AM EST patch 72 hour 5 APPLY 1 PATCH TO THE SKIN ONCE EVERY 3 DAYS MAXIMUM DAILY DOSE = 1 PATCH PER 3 DAYS APPLY 1 PATCH TO THE SKIN ONCE EVERY 3 DAYS MAXIMUM DAILY DOSE = 1 PATCH PER 3 DAYS SOLD: 11/01/2020 [facility] 1 % 10/24/2020 12:00:00 AM EST lotion 570 APPLY TO AFFECTED AREA(S) TO ITCHY SKIN NEEDED APPLY TO AFFECTED AREA(S) TO ITCHY SKIN NEEDED SOLD : 10/24/2020 [facility] 10 mg 10/23/2020 12:00:00 AM EST tablet 90 TAKE ONE TABLET BY MOUTH THREE TIMES A DAY NEEDED FOR ITCHING TAKE ONE TABLET BY MOUTH THREE TIMES A D AY NEEDED FOR ITCHING SOLD: 10/24/2020 [facility] 100 mg 10/14/2020 12:00:00 AM EST capsule 30 TAKE ONE CAPSULE BY MOUTH NIGHTLY TAKE ONE CAPSULE BY MOUTH NIGHTLY SOLD: 10/14/2020 [facility] 100 mg 10/14/2020 12:00:00 AM EST capsule 30 TAKE ONE CAPSULE BY MOUTH NIGHTLY TAKE ONE CAPSULE BY MOUTH NIGHTLY SOLD: 11/23/2020 [facility] 5 mg 10/13/2020 12:00:00 AM EST tablet 60 TAKE TWO TABLETS BY MOUTH EVERY DAY TAKE TWO TABLETS BY MOUTH EVERY DAY SOLD: 10/14/2020 [facility] 1.7 ML denosumab 70 MG/ML Injection denosumab (XGEVA) injection 120 mg denosumab (XGEVA) injection 120 mg 09/25/2020 10:15:00 AM EST 120 mg Subcutan eous completed Malignant melanoma of noseMalignant neoplasm metastatic to b one 120 mg, Subcutaneous, Once, Frida 09/25/20 at 1015, For 1 dose [facility] 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 Medication administered onsite nivolumab (OPDIVO) 480 mg in sodium chloride 0.9 % 100 mL ch emo infusion 09/25/2020 10:15:00 AM EST 480 mg Intravenous c ompleted 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 480 mg, I ntravenous, Administer over 30 Minutes, Once, Frida 09/25/20 at 1015, For 1 dose [facility] 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 Medication administered onsite Prednisone 20 MG Oral Tablet predniSONE 20 MG Oral Tab let predniSONE 20 MG Oral Tablet 09/25/2020 12:00:00 AM EST active Take 2, 20 mg tablets po with breakfast x 5 days, then resume 5 mg po BID [facility] 20 mg 09/25/2020 12:00:00 AM EST tablet 10 TAKE 2 TABLETS BY MOUTH WITH BREAKFAST FOR 5 DAYS, THEN RESUME 5 MG BY MOUTH TWO TIMES A DAY TAKE 2 TABLETS BY MOUTH WITH BREAKFAST FOR 5 DAYS, THEN RESUME 5 MG BY MOUTH TWO TIMES A DAY SOLD: 09/25/2020 [facility] Clobetasol Propionate 0.5 MG/ML Topical Cream 0.05 % CLOBETA MALOU PROPIONATE 09/23/2020 12:00:00 AM EST cream 120 APPLY TO TRUNK AND EXTREMETIES SPARINGLY TWO TIMES A DAY FOR 2 WEEKS APPLY TO TRUNK AND EXTREMETIES SPARINGLY TWO TIMES A DAY FOR 2 WEEKS SOLD: 09/25/2020 [facility] 10 mg 09/23/2020 12:00:00 AM EST tablet 30 TAKE ONE TO TWO TABLETS BY MOUTH PRIOR TO BED NEEDED FOR ITCH TAKE ONE TO TWO TABLETS BY MOUTH PRIOR T O BED NEEDED FOR ITCH SOLD: 09/23/2020 [facility] Folic Acid 1 MG Oral Tablet FOLIC ACID 09/11/2020 12:00:00 AM EST tabl et 30 TAKE ONE TABLET BY MOUTH EVERY DAY TAKE ONE TABLET BY MOUTH EVERY DAY SOLD: 11/11/2020 [facility] 1 mg 09/11/2020 12:00:00 AM EST tablet 30 TAKE ONE TABLET BY MOUTH EVERY DAY TAKE ONE TABLET BY MOUTH EVERY DAY SOLD: 09/15/2020 [facility] 1 mg 09/11/2020 12:00:00 AM EST tablet 30 TAKE ONE TABLET BY MOUTH EVERY DAY TAKE ONE TABLET BY MOUTH EVERY DAY SOLD: 10/14/2020 [facility] 72 HR Fentanyl 0.025 MG/HR Transdermal System FENTANYL 09/10/2020 12:00:00 AM EST patch 72 hour 10 APPLY 1 PATCH TO CLEAN, DRY SKIN FOR 72 HOURS THEN REMOVE, DISPOSE OF PROPERLY AND APPLY A NEW PATCH ON A DIFFERENT, CLEAN DRY SKIN SITE MAXIMUM DAILY DOSE = 1 PATCH PER 72 HOURS APPLY 1 PATCH TO CLEAN, DRY SKIN FOR 72 HOURS THEN REMOVE, DISPOSE OF PROPERLY AND APPLY A NEW PATCH ON A DIFFERENT, CLEAN DRY SKIN SITE MAXIMUM DAILY DOSE = 1 PATCH PER 72 HOURS SOLD: 09/15/2020 [facility] 100,000 unit/gram 09/05/2020 12:00:00 AM EST powder 30 APPLY TO AFFECTED AREA(S) ON GROIN TWO TIMES A DAY NEEDED APPLY TO AFFECTED AREA(S) ON GROIN TWO TIMES A DAY NEEDED SOLD: 09/15/2020 [facility] 100,000 unit/gram 09/05/2020 12:00:00 AM EST powder 30 APPLY TO AFFECTED AREA(S) ON GROIN TWO TIMES A DAY NEEDED APPLY TO AFFECTED AREA(S) ON GROIN TWO TIMES A DAY NEEDED SOLD: 10/14/2020 [facility] 1.7 ML denosumab 70 MG/ML Injection denosumab (XGEVA) injection 120 mg denosumab (XGEVA) injection 120 mg 08/28/2020 10:00:00 AM EST 120 mg Subcutan eous completed 120 mg, Subcutaneous, Once, Frida 08/28/20 at 1000, For 1 dose [facility] Medication administered onsite nivolumab (OPDIVO) 480 mg in sodium chloride 0.9 % 100 mL ch emo infusion 08/28/2020 10:00:00 AM EST 480 mg Intravenous c ompleted 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 480 mg, I ntravenous, Administer over 30 Minutes, Once, [facility] 08/28/20 at 1000, For 1 dose [facility] 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 Medication administered onsite 72 HR Fentanyl 0.025 MG/HR Transdermal P atch fentaNYL 25 MCG/HR Transdermal Patch 72 Hour (DURAGESIC) fentaNYL 25 MCG/HR Transdermal Patch 72 Hour (DURAGESIC) 08/28/2020 12:00:00 AM EST 1 {patch} Transdermal active Place 1 patch onto the skin every 3 (three) days Starting April 16, Max Daily Dose: 1 patch [facility] 10 mg 08/14/2020 12:00:00 AM EST tablet 29 TAKE ONE TABLET BY MOUTH EVERY DAY TAKE ONE TABLET BY MOUTH EVERY DAY SOLD: 08/19/2020 [facility] 10 mg 08/14/2020 12:00:00 AM EST tablet 30 TAKE ONE TABLET BY MOUTH EVERY DAY TAKE ONE TABLET BY MOUTH EVERY DAY SOLD: 10/14/2020 [facility] 10 mg 08/14/2020 12:00:00 AM EST tablet 30 TAKE ONE TABLET BY MOUTH EVERY DAY TAKE ONE TABLET BY MOUTH EVERY DAY SOLD: 11/11/2020 [facility] 10 mg 08/14/2020 12:00:00 AM EST tablet 30 TAKE ONE TABLET BY MOUTH EVERY DAY TAKE ONE TABLET BY MOUTH EVERY DAY SOLD: 09/15/2020 [facility] nivolumab (OPDIVO) 480 mg in sodium chloride 0.9 % 100 mL ch emo infusion 07/31/2020 09:45:00 AM EDT 480 mg Intravenous c ompleted 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 480 mg, I ntravenous, Administer over 30 Minutes, Once, [facility] 07/31/20 at 0945, For 1 dose [facility] 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 Medication administered onsite 1.7 ML denosumab 70 MG/ML Injection denosumab (XGEVA) injection 120 mg denosumab (XGEVA) injection 120 mg 07/31/2020 09:30:00 AM EDT 120 mg Subcutan eous completed Malignant melanoma of noseMalignant neoplasm metastatic to b one 120 mg, Subcutaneous, Once, Frida 07/31/20 at 0930, For 1 dose [facility] 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 Medication administered onsite 10 mg 07/31/2020 12:00:00 AM EDT tablet 120 TAKE ONE TABLET BY MOUTH EVERY 6 HOURS NEEDED FOR ITCHING TAKE ONE TABLET BY MOUTH EVERY 6 HOURS A S NEEDED FOR ITCHING SOLD: 08/03/2020 [facility] Hydroxyzine Hydrochloride 10 MG Oral Tab let hydrOXYzine HCl 10 MG Oral Tablet (ATARAX) hydrOXYzine HCl 10 MG Oral Tablet (ATARAX) 07/31/2020 12:00: 00 AM EDT 10 mg Oral completed Take 1 tablet by mouth every 6 (six) hours as needed for Itching [facility] 72 HR Fentanyl 0.025 MG/HR Transdermal P atch fentaNYL 25 MCG/HR Transdermal Patch 72 Hour (DURAGESIC) fentaNYL 25 MCG/HR Transdermal Patch 72 Hour (DURAGESIC) 07/31/2020 12:00:00 AM EDT 1 {patch} Transdermal aborted Place 1 patch onto the skin every 3 (three) days Starting April 16, Daily Dose: 1 patch [facility] 100,000 unit/gram 07/25/2020 12:00:00 AM EDT powder 30 APPLY TO AFFECTED AREA(S) ON GROIN TWO TIMES A DAY NEEDED APPLY TO AFFECTED AREA(S) ON GROIN TWO TIMES A DAY NEEDED SOLD: 08/19/2020 [facility] 100,000 unit/gram 07/25/2020 12:00:00 AM EDT powder 30 APPLY TO AFFECTED AREA(S) ON GROIN TWO TIMES A DAY NEEDED APPLY TO AFFECTED AREA(S) ON GROIN TWO TIMES A DAY NEEDED SOLD: 08/03/2020 [facility] 2.5 mg 07/17/2020 12:00:00 AM EDT tablet 60 TAKE ONE TABLET BY MOUTH TWO TIMES A DAY TAKE ONE TABLET BY MOUTH TWO TIMES A DAY SOLD: 07/21/2020 [facility] apixaban 2.5 MG Oral Tablet [Eliquis] Eliquis 07/16/2020 12:00:00 AM EDT ORAL active [facility] ([facility] Metoprolol Tartrate 25 MG Oral Tablet Metoprolol Tartrate 12:00:00 AM EDT ORAL completed [facility] ([facility]) Folic Acid 1 MG Oral Tablet Folic Acid 07/16/2020 12:00:00 AM EDT ORAL active [facility] ([facility]) 324 mg (38 mg iron) 07/14/2020 12:00:00 AM EDT tablet 60 TAKE 1 TABLET BY MOUTH TWO TIMES A DAY TAKE 1 TABLET BY MOUTH TWO TIMES A DAY SOLD: 10/14/2020 [facility] Potassium Chloride 10 MEQ Extended Release Oral Tablet POTAS SIUM CHLORIDE 07/14/2020 12:00:00 AM EDT tablet extended release 60 TAKE 1 TABLET BY MOUTH TWO TIMES A DAY TAKE 1 TABLET BY MOUTH TWO TIMES A DAY SOLD: 07/21/2020 [facility] 324 mg (38 mg iron) 07/14/2020 12:00:00 AM EDT tablet 60 TAKE 1 TABLET BY MOUTH TWO TIMES A DAY TAKE 1 TABLET BY MOUTH TWO TIMES A DAY SOLD: 07/21/2020 [facility] 324 mg (38 mg iron) 07/14/2020 12:00:00 AM EDT tablet 60 TAKE 1 TABLET BY MOUTH TWO TIMES A DAY TAKE 1 TABLET BY MOUTH TWO TIMES A DAY SOLD: 09/15/2020 [facility] 324 mg (38 mg iron) 07/14/2020 12:00:00 AM EDT tablet 58 TAKE 1 TABLET BY MOUTH TWO TIMES A DAY TAKE 1 TABLET BY MOUTH TWO TIMES A DAY SOLD: 08/19/2020 [facility] 25 mcg/hr 07/05/2020 12:00:00 AM EDT patch 72 hour 10 APPLY 1 PATCH TO CLEAN, DRY SKIN FOR 72 HOURS THEN REMOVE, DISPOSE OF PROPERLY AND APPLY A NEW PATCH ON A DIFFERENT, CLEAN DRY SKIN SITE MAXIMUM DAILY DOSE = 1 PATCH EVERY 3 DAYS APPLY 1 PATCH TO CLEAN, DRY SKIN FOR 72 HOURS THEN REMOVE, DISPOSE OF PROPERLY AND APPLY A NEW PATCH ON A DIFFERENT, CLEAN DRY SKIN SITE MAXIMUM DAILY DOSE = 1 PATCH EVERY 3 DAYS SOLD: 07/08/2020 [facility] nivolumab (OPDIVO) 480 mg in sodium chloride 0.9 % 100 mL ch emo infusion 07/03/2020 09:45:00 AM EDT 480 mg Intravenous c ompleted 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 480 mg, Intravenous, Administer over 30 Minutes, Once, Frida 07/03/20 at 0945, For 1 dose [facility] 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 Medication administered onsite 72 HR Fentanyl 0.025 MG/HR Transdermal P atch fentaNYL 25 MCG/HR Transdermal Patch 72 Hour (DURAGESIC) fentaNYL 25 MCG/HR Transdermal Patch 72 Hour (DURAGESIC) 07/03/2020 12:00:00 AM EDT 1 {patch} Transdermal aborted Place 1 patch onto the skin every 3 (three) days Starting April 16, Max Daily Dose: 1 patch [facility] 100,000 unit/gram 06/16/2020 12:00:00 AM EDT powder 30 APPLY TO AFFECTED AREA(S) ON GROIN TWO TIMES A DAY NEEDED APPLY TO AFFECTED AREA(S) ON GROIN TWO TIMES A DAY NEEDED SOLD: 07/08/2020 [facility] 100,000 unit/gram 06/16/2020 12:00:00 AM EDT powder 30 APPLY TO AFFECTED AREA(S) ON GROIN TWO TIMES A DAY NEEDED APPLY TO AFFECTED AREA(S) ON GROIN TWO TIMES A DAY NEEDED SOLD: 06/19/2020 [facility] pantoprazole 40 MG Delayed Release Oral Tablet PANTOPRAZOLE SODIUM 06/15/2020 12:00:00 AM EDT tablet,delayed release (DR/EC) 30 T RUSSELL ONE TABLET BY MOUTH EVERY DAY TAKE ONE TABLET BY MOUTH EVERY DAY SOLD: 10/14/2020 [facility] pantoprazole 40 MG Delayed Release Oral Tablet PANTOPRAZOLE SODIUM 06/15/2020 12:00:00 AM EDT tablet,delayed release (DR/EC) 30 T RUSSELL ONE TABLET BY MOUTH EVERY DAY TAKE ONE TABLET BY MOUTH EVERY DAY SOLD: 11/11/2020 [facility] 40 mg 06/15/2020 12:00:00 AM EDT tablet,delayed release (DR/EC) 90 TAKE ONE TABLET BY MOUTH EVERY DAY TAKE ONE TABLET BY MOUTH EVERY DAY SOLD: 06/19/2020 [facility] pantoprazole 40 MG Delayed Release Oral Tablet PANTOPRAZOLE SODIUM 06/15/2020 12:00:00 AM EDT tablet,delayed release (DR/EC) 30 T RUSSELL ONE TABLET BY MOUTH EVERY DAY TAKE ONE TABLET BY MOUTH EVERY DAY SOLD: 08/19/2020 [facility] pantoprazole 40 MG Delayed Release Oral Tablet PANTOPRAZOLE SODIUM 06/15/2020 12:00:00 AM EDT tablet,delayed release (DR/EC) 30 T RUSSELL ONE TABLET BY MOUTH EVERY DAY TAKE ONE TABLET BY MOUTH EVERY DAY SOLD: 09/15/2020 [facility] 100 mg 06/08/2020 12:00:00 AM EDT capsule 30 TAKE ONE CAPSULE BY MOUTH NIGHTLY TAKE ONE CAPSULE BY MOUTH NIGHTLY SOLD: 09/15/2020 [facility] 100 mg 06/08/2020 12:00:00 AM EDT capsule 30 TAKE ONE CAPSULE BY MOUTH NIGHTLY TAKE ONE CAPSULE BY MOUTH NIGHTLY SOLD: 06/12/2020 [facility] 100 mg 06/08/2020 12:00:00 AM EDT capsule 30 TAKE ONE CAPSULE BY MOUTH NIGHTLY TAKE ONE CAPSULE BY MOUTH NIGHTLY SOLD: 07/12/2020 [facility] nivolumab (OPDIVO) 480 mg in sodium chloride 0.9 % 100 mL ch emo infusion 06/05/2020 09:45:00 AM EDT 480 mg Intravenous c ompleted 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 480 mg, Intravenous, Administer over 30 Minutes, Once, Frida 06/05/20 at 0945, For 1 dose [facility] 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 Medication administered onsite 1.7 ML denosumab 70 MG/ML Injection denosumab (XGEVA) injection 120 mg denosumab (XGEVA) injection 120 mg 06/05/2020 09:45:00 AM EDT 120 mg Subcuta neous completed Malignant melanoma of noseMalignant neoplasm metastatic to b one 120 mg, Subcutaneous, Once, Fr[place] 06/05/20 at 0945, For 1 dose [facility] 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 Medication administered onsite 72 HR Fentanyl 0.025 MG/HR Transdermal System FENTANYL 06/05/2020 12:00:00 AM EDT patch [address] 1 PATCH ON TO THE SKIN EVERY 3 DAYS MAXIMUM DAILY DOSE = 1 PATCH EVERY [address] 1 PATCH ONTO THE SKIN EVERY 3 DAYS MAXIMUM DAILY DOSE = 1 PATCH EVERY 3 DAYS SOLD: 06/06/2020 [facility] 72 HR Fentanyl 0.025 MG/HR Transdermal P atch fentaNYL 25 MCG/HR Transdermal Patch 72 Hour (DURAGESIC) fentaNYL 25 MCG/HR Transdermal Patch 72 Hour (DURAGESIC) 06/05/2020 12:00:00 AM EDT 1 {patch} Transdermal aborted Place 1 patch onto the skin every 3 (three) days Starting April 16, Daily Dose: 1 patch [facility] 100,000 unit/gram 05/23/2020 12:00:00 AM EDT cream 30 APPLY TO GROIN AREA TWO TIMES A DAY FOR 2 WEEKS APPLY TO GROIN AREA TWO TIMES A DAY FOR 2 WEEKS SOLD: 05/23/2020 [facility] 25 mg 05/23/2020 12:00:00 AM EDT tablet 60 TAKE ONE TABLET BY MOUTH TWICE A DAY TAKE ONE TABLET BY MOUTH TWICE A DAY SOLD: 09/15/2020 [facility] 25 mg 05/23/2020 12:00:00 AM EDT tablet 60 TAKE ONE TABLET BY MOUTH TWICE A DAY TAKE ONE TABLET BY MOUTH TWICE A DAY SOLD: 08/19/2020 [facility] 25 mg 05/23/2020 12:00:00 AM EDT tablet 60 TAKE ONE TABLET BY MOUTH TWICE A DAY TAKE ONE TABLET BY MOUTH TWICE A DAY SOLD: 11/11/2020 [facility] 25 mg 05/23/2020 12:00:00 AM EDT tablet 60 TAKE ONE TABLET BY MOUTH TWICE A DAY TAKE ONE TABLET BY MOUTH TWICE A DAY SOLD: 10/14/2020 [facility] 25 mg 05/23/2020 12:00:00 AM EDT tablet 180 TAKE ONE TABLET BY MOUTH TWICE A DAY TAKE ONE TABLET BY MOUTH TWICE A DAY SOLD: 05/23/2020 [facility] 5 mg 05/16/2020 12:00:00 AM EDT tablet 30 TAKE ONE TABLET BY MOUTH EVERY DAY TAKE ONE TABLET BY MOUTH EVERY DAY SOLD: 06/19/2020 [facility] 5 mg 05/16/2020 12:00:00 AM EDT tablet 30 TAKE ONE TABLET BY MOUTH EVERY DAY TAKE ONE TABLET BY MOUTH EVERY DAY SOLD: 07/21/2020 [facility] 5 mg 05/16/2020 12:00:00 AM EDT tablet 30 TAKE ONE TABLET BY MOUTH EVERY DAY TAKE ONE TABLET BY MOUTH EVERY DAY SOLD: 05/21/2020 [facility] 5 mg 05/16/2020 12:00:00 AM EDT tablet 29 TAKE ONE TABLET BY MOUTH EVERY DAY TAKE ONE TABLET BY MOUTH EVERY DAY SOLD: 08/19/2020 [facility] 5 mg 05/16/2020 12:00:00 AM EDT tablet 30 TAKE ONE TABLET BY MOUTH EVERY DAY TAKE ONE TABLET BY MOUTH EVERY DAY SOLD: 11/11/2020 [facility] 5 mg 05/16/2020 12:00:00 AM EDT tablet 30 TAKE ONE TABLET BY MOUTH EVERY DAY TAKE ONE TABLET BY MOUTH EVERY DAY SOLD: 09/23/2020 [facility] 8.6-50 mg 05/14/2020 12:00:00 AM EDT tablet 60 TAKE 2 TABLETS BY MOUTH ONCE AT BEDTIME NEEDED TAKE 2 TABLETS BY MOUTH ONCE AT BEDTIME NEEDED SOLD : 05/21/2020 [facility] 10 mg 05/12/2020 12:00:00 AM EDT tablet 90 TAKE ONE TABLET BY MOUTH AT BEDTIME TAKE ONE TABLET BY MOUTH AT BEDTIME SOLD: 05/13/2020 [facility] nivolumab (OPDIVO) 480 mg in sodium chloride 0.9 % 100 mL ch emo infusion 05/08/2020 11:45:00 AM EDT 480 mg Intravenous c ompleted 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 480 mg, Intravenous, Administer over 30 Minutes, Once, Frida 05/08/20 at 1145, For 1 dose [facility] 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 Medication administered onsite 1.7 ML denosumab 70 MG/ML Injection denosumab (XGEVA) injection 120 mg denosumab (XGEVA) injection 120 mg 05/08/2020 11:45:00 AM EDT 120 mg Subcuta neous completed Malignant melanoma of noseMalignant neoplasm metastatic to b one 120 mg, Subcutaneous, Once, Frida 05/08/20 at 1145, For 1 dose [facility] 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 Medication administered onsite 100,000 unit/gram 05/08/2020 12:00:00 AM EDT powder 30 APPLY TO AFFECTED AREA(S) ON GROIN TWO TIMES A DAY NEEDED APPLY TO AFFECTED AREA(S) ON GROIN TWO TIMES A DAY NEEDED SOLD: 05/21/2020 [facility] 100,000 unit/gram 05/08/2020 12:00:00 AM EDT powder 30 APPLY TO AFFECTED AREA(S) ON GROIN TWO TIMES A DAY NEEDED APPLY TO AFFECTED AREA(S) ON GROIN TWO TIMES A DAY NEEDED SOLD: 06/03/2020 [facility] 300 mg 05/07/2020 12:00:00 AM EDT tablet 90 TAKE ONE TABLET BY MOUTH EVERY DAY TAKE ONE TABLET BY MOUTH EVERY DAY SOLD: 05/13/2020 [facility] 100,000 unit/gram 05/01/2020 12:00:00 AM EDT cream 30 APPLY TO GROIN AREA TWO TIMES A DAY FOR 2 WEEKS APPLY TO GROIN AREA TWO TIMES A DAY FOR 2 WEEKS SOLD: 05/01/2020 [facility] 5 mg 04/17/2020 12:00:00 AM EDT tablet 30 TAKE ONE TABLET BY MOUTH EVERY DAY TAKE ONE TABLET BY MOUTH EVERY DAY SOLD: 04/20/2020 [facility] 72 HR Fentanyl 0.025 MG/HR Transdermal System FENTANYL 04/16/2020 12:00:00 AM EDT patch 72 hour 10 APPLY ONE PATCH TO THE SKIN EVERY 3 DAYS STARTING 04/16/20; MAX 1 PATCH PER 72 HOURS APPLY ONE PATCH TO THE SKIN EVERY 3 DAYS STARTING 04/16/20; MAX 1 PATCH PER 72 HOURS SOLD: 04/16/2020 [facility] 1.7 ML denosumab 70 MG/ML Injection denosumab (XGEVA) injection 120 mg denosumab (XGEVA) injection 120 mg 04/10/2020 11:30:00 AM EDT 120 mg Subcuta neous completed Malignant melanoma of noseMalignant neoplasm metastatic to b one 120 mg, Subcutaneous, Once, Frida 04/10/20 at 1130, For 1 dose [facility] 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 Medication administered onsite nivolumab (OPDIVO) 480 mg in sodium chloride 0.9 % 100 mL ch emo infusion 04/10/2020 10:30:00 AM EDT 480 mg Intravenous c ompleted 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 480 mg, Intravenous, Administer over 30 Minutes, Once, Frida 7 at 1030, For 1 dose [facility] 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 Medication administered onsite 0.05 % 04/10/2020 12:00:00 AM EDT cream 60 APPLY TO AFFECTED AREA TOPICALLY TWO TIMES A DAY APPLY TO AFFECTED AREA TOPICALLY TWO TIMES A DAY SOLD: 05/21/2020 [facility] Clobetasol Prop Emollient Base 0.05 % External Cream ( Clobetasol Propionate E) 04114-280-36 04/10/2020 12:00:00 AM EDT abort ed Apply to affected areas [facility] 72 HR Fentanyl 0.025 MG/HR Transdermal P atch fentaNYL 25 MCG/HR Transdermal Patch 72 Hour (DURAGESIC) fentaNYL 25 MCG/HR Transdermal Patch 72 Hour (DURAGESIC) 04/10/2020 12:00:00 AM EDT 1 {patch} Transdermal aborted Place 1 patch onto the skin every 3 (three) days for 3 daysStarting April 16 Daily Dose: 1 patch [facility] 0.05 % 04/10/2020 12:00:00 AM EDT cream 60 APPLY TO AFFECTED AREA TOPICALLY TWO TIMES A DAY APPLY TO AFFECTED AREA TOPICALLY TWO TIMES A DAY SOLD: 06/19/2020 [facility] 0.05 % 04/10/2020 12:00:00 AM EDT cream 60 APPLY TO AFFECTED AREA TOPICALLY TWO TIMES A DAY APPLY TO AFFECTED AREA TOPICALLY TWO TIMES A DAY SOLD: 04/16/2020 [facility] 5 mg 03/25/2020 12:00:00 AM EDT tablet 60 TAKE TWO TABLETS BY MOUTH EVERY DAY TAKE TWO TABLETS BY MOUTH EVERY DAY SOLD: 03/29/2020 [facility] 5 mg 03/25/2020 12:00:00 AM EDT tablet 60 TAKE TWO TABLETS BY MOUTH EVERY DAY TAKE TWO TABLETS BY MOUTH EVERY DAY SOLD: 05/23/2020 [facility] 5 mg 03/25/2020 12:00:00 AM EDT tablet 60 TAKE TWO TABLETS BY MOUTH EVERY DAY TAKE TWO TABLETS BY MOUTH EVERY DAY SOLD: 06/27/2020 [facility] 5 mg 03/25/2020 12:00:00 AM EDT tablet 60 TAKE TWO TABLETS BY MOUTH EVERY DAY TAKE TWO TABLETS BY MOUTH EVERY DAY SOLD: 09/15/2020 [facility] 5 mg 03/25/2020 12:00:00 AM EDT tablet 60 TAKE TWO TABLETS BY MOUTH EVERY DAY TAKE TWO TABLETS BY MOUTH EVERY DAY SOLD: 04/26/2020 [facility] 5 mg 03/25/2020 12:00:00 AM EDT tablet 60 TAKE TWO TABLETS BY MOUTH EVERY DAY TAKE TWO TABLETS BY MOUTH EVERY DAY SOLD: 08/03/2020 [facility] 72 HR Fentanyl 0.025 MG/HR Transdermal P atch fentaNYL 25 MCG/HR Transdermal Patch 72 Hour (DURAGESIC) fentaNYL 25 MCG/HR Transdermal Patch 72 Hour (DURAGESIC) 03/19/2020 12:00:00 AM EDT 1 {patch} Transdermal aborted Place 1 patch onto the skin every 3 (three) days for 3 days, Max Daily Dose: 1 patch [facility] 2.5 mg 03/19/2020 12:00:00 AM EDT tablet 14 TAKE ONE TABLET BY MOUTH TWICE A DAY TAKE ONE TABLET BY MOUTH TWICE A DAY SOLD: 03/19/2020 [facility] 72 HR Fentanyl 0.025 MG/HR Transdermal System FENTANYL 03/19/2020 12:00:00 AM EDT patch 72 hour 9 APPLY 1 PATCH TO CLEAN, DRY SKIN FOR 72 HOURS THEN REMOVE, DISPOSE OF PROPERLY AND APPLY A NEW PATCH ON A DIFFERENT, CLEAN DRY SKIN SITE MAXIMUM DAILY DOSE = 1 PATCH EVERY 72 HOURS APPLY 1 PATCH TO CLEAN, DRY SKIN FOR 72 HOURS THEN REMOVE, DISPOSE OF PROPERLY AND APPLY A NEW PATCH ON A DIFFERENT, CLEAN DRY SKIN SITE MAXIMUM DAILY DOSE = 1 PATCH EVERY 72 HOURS SOLD: 03/21/2020 [facility] nivolumab (OPDIVO) 480 mg in sodium chloride 0.9 % 100 mL ch emo infusion 03/13/2020 11:00:00 AM EDT 480 mg Intravenous c ompleted Encounter for antineoplastic immunotherapyMalignant neoplasm metastatic to bone 480 mg, Intravenous, Administer over 30 Minutes, Once, [facility] 03/13/20 at 1100, For 1 dose [facility] Encounter for antineoplastic immunothera py Malignant neoplasm metastatic to bone Medication administered onsite Oxymetazoline hydrochloride 0.5 MG/ML Na leelee [place] Oxymetazoline HCl 0.05 % Nasal Solution (AFRIN) Oxymetazoline HCl 0.05 % Nasal Solution (AFRIN) 2019 12:00:00 AM EDT 3 {spray} Nasal aborted 3 sprays by Nasal route daily as needed for Congestion for up to 3 days [facility] Oxymetazoline hydrochloride 0.5 MG/ML Na le[facility]e [place] Oxymetazoline HCl 0.05 % Nasal Solution (AFRIN) Oxymetazoline HCl 0.05 % Nasal Solution (AFRIN) 2019 12:00:00 AM EDT 3 {spray} Nasal completed 3 sprays by Nasal route daily as needed for Congestion for up to 3 days [facility] 72 HR Fentanyl 0.025 MG/HR Transdermal P atch fentaNYL 25 MCG/HR Transdermal Patch 72 Hour (DURAGESIC) fentaNYL 25 MCG/HR Transdermal Patch 72 Hour (DURAGESIC) 03/12/2020 12:00:00 AM EDT 1 {patch} Transdermal aborted Place 1 patch onto the skin every 3 (three) days for 3 days, Max Daily Dose: 1 patch [facility] Sodium Chloride 0.111 MEQ/ML Nasal Solut ion Saline Nasal [place] 0.65 % Nasal Solution (OCEAN) Saline Nasal [place] 0.65 % Nasal Solution (OCEAN) 03/12 12:00:00 AM EDT 2 {spray} Nasal completed 2 sprays by Nasal route every hour as needed for Congestion for up to 10 days [facility] Oxymetazoline hydrochloride 0.5 MG/ML Na [facility] [place] Oxymetazoline HCl 0.05 % Nasal Solution (AFRIN) Oxymetazoline HCl 0.05 % Nasal Solution (AFRIN) 2019 12:00:00 AM EDT 3 {spray} Nasal aborted 3 sprays by Nasal route daily as needed for Congestion for up to 10 days [facility] sennosides, [facility] 8.6 MG Oral Tablet senna 8.6 MG 2 tablet sen na 8.6 MG 2 tablet 03/11/2020 10:00:00 PM EDT 2 {tbl} Oral active 2 tablet, Oral, Nightly, First dose on Tue03/11/20 at 2200, For 30 days [facility] Medication administered onsite iron sucrose (VENOFER) 200 mg in sodium chloride 0.9 % 100 m L IVPB 03/11/2020 02:30:00 PM EDT 200 mg Intravenous completed 200 mg, Intravenous, Administer over 60 Minutes, Once, Tue03/11/20 at 1430, For 1 dose [facility] Medication administered onsite POLYETHYLENE GLYCOL 3350 142 MG/ML Oral Solution polyethylene glycol (MIRALAX) packet 17 g polyethylene glycol (MIRALAX) packet 17 g 03/11/2020 0 9:00:00 AM EDT 17 g Oral active 17 g, Or al, Daily Standard, First dose on Tue03/11/20 at 0900, For 30 days
Mix in 8 ounces of water, juice or milk. Avoid use in patients who require thickened liquids due to potential increased risk for aspiration.
[facility] Medication administered onsite Bisacodyl 10 MG Rectal Suppository bisacodyl (DULCOLAX ) suppository 10 mg bisacodyl (DULCOLAX) suppository 10 mg 03/11/2020 08:42:23 AM EDT 10 mg Rectal active 10 mg, Rectal, Daily PRN, Constipation, Starting Tue03/11/20 at 0842, For 30 days [facility] Medication administered onsite Oxymetazoline hydrochloride 0.5 MG/ML Na [facility]e [place] oxymetazoline (AFRIN) 0.05 % nasal spray 3 spray oxymetazoline (AFRIN) 0.05 % nasal spray 3 spray 03/11 06:02:10 AM EDT 3 {spray} Nasal active 3 spray, Nasal, Daily PRN, Congestion, Starting Tue03/11/20 at 0602, For 3 days
if acute bleed, 3 squirts per nare & holding direct pressure x 20 minutes
[facility] Medication administered onsite ferrous gluconate 324 MG Oral Tablet Ferrous Gluconate (FERGON) tablet 324 mg Ferrous Gluconate (FERGON) tablet 324 mg 03/10/2020 09:00:00 PM EDT 324 mg Oral active 324 mg, Oral, 2 Times Daily, First dose on Tue03/10/20 at 2100, For 30 days [facility] Medication administered onsite Folic Acid 1 MG Oral Tablet folic acid (FOLVITE) table t 1 mg folic acid (FOLVITE) tablet 1 mg 03/10/2020 02:00:00 PM EDT 1 mg Oral active 1 mg, Oral, Daily Standard, First dose (after last modification) on Tue03/10/20 at 1400, For 30 days [facility] Medication administered onsite 25 mcg/hr 03/10/2020 12:00:00 AM EDT patch 72 hour 1 APPLY 1 PATCH TO CLEAN, DRY SKIN FOR 72 HOURS THEN REMOVE, DISPOSE OF PROPERLY AND APPLY A NEW PATCH ON A DIFFERENT, CLEAN DRY SKIN SITE MAXIMUM DAILY DOSE = 1 PATCH EVERY 3 DAYS APPLY 1 PATCH TO CLEAN, DRY SKIN FOR 72 HOURS THEN REMOVE, DISPOSE OF PROPERLY AND APPLY A NEW PATCH ON A DIFFERENT, CLEAN DRY SKIN SITE MAXIMUM DAILY DOSE = 1 PATCH EVERY 3 DAYS SOLD: 03/12/2020 [facility] epoetin chiqui-epbx (RETACRIT) injection 10,000 Units [id number] 03/09/2020 11:00:00 AM EDT 35762 U Subcutaneous completed Chemotherapy-Shelley deion Anemia 10,000 Units, Subcutaneous, Once, Indications: Chemotherapy-Induced Anemia, [place] 03/09/20 at 1100, For 1 dose [facility] Chemotherapy-Induced Anemia Medication administered onsite iron sucrose (VENOFER) 100 mg in sodium chloride 0.9 % 100 m L IVPB 03/09/2020 08:15:00 AM EDT 100 mg Intravenous completed 100 mg, Intravenous, Administer over 60 Minutes, Once, [place] 03/09/20 at 0815, For 1 dose [facility] Medication administered onsite 324 mg (38 mg iron) 03/09/2020 12:00:00 AM EDT tablet 60 TAKE 1 TABLET BY MOUTH TWO TIMES A DAY TAKE 1 TABLET BY MOUTH TWO TIMES A DAY SOLD: 05/21/2020 [facility] 324 mg (38 mg iron) 03/09/2020 12:00:00 AM EDT tablet 60 TAKE 1 TABLET BY MOUTH TWO TIMES A DAY TAKE 1 TABLET BY MOUTH TWO TIMES A DAY SOLD: 03/12/2020 [facility] 324 mg (38 mg iron) 03/09/2020 12:00:00 AM EDT tablet 60 TAKE 1 TABLET BY MOUTH TWO TIMES A DAY TAKE 1 TABLET BY MOUTH TWO TIMES A DAY SOLD: 04/16/2020 [facility] 324 mg (38 mg iron) 03/09/2020 12:00:00 AM EDT tablet 60 TAKE 1 TABLET BY MOUTH TWO TIMES A DAY TAKE 1 TABLET BY MOUTH TWO TIMES A DAY SOLD: 06/19/2020 [facility] furosemide (LASIX) injection 40 mg [id number] 03/07/2020 10:30:00 PM EDT 40 mg Intravenous completed 40 mg, I ntravenous, Once, Tue03/07/20 at 2230, For 1 dose
Please give post-transfusion completion
[facility] Medication administered onsite gabapentin 100 MG Oral Capsule gabapentin (NEURONTIN) capsule 100 mg gabapentin (NEURONTIN) capsule 100 mg 03/07/2020 10:00:00 PM EDT 100 mg Oral active 100 mg, Oral, Nightly, First dose on Tue03/07/20 at 2200, For 30 days [facility] Medication administered onsite Simvastatin 20 MG Oral Tablet simvastatin (ZOCOR) tabl et 20 mg simvastatin (ZOCOR) tablet 20 mg 03/07/2020 10:00:00 PM EDT 20 mg Oral active 20 mg, Oral, Nightly, First dose on Tue03/07/20 at 2200, For 30 days [facility] Medication administered onsite torsemide 20 MG Oral Tablet torsemide (DEMADEX) tablet 40 mg torsemide (DEMADEX) tablet 40 mg 03/07/2020 09:00:00 PM EDT 40 mg Oral acti ve 40 mg, Oral, Every evening, First dose on Tue03/07/20 at 2100, For 30 days [facility] Medication administered onsite Minoxidil 10 MG Oral Tablet minoxidil (LONITEN) tablet 10 mg minoxidil (LONITEN) tablet 10 mg 03/07/2020 09:00:00 PM EDT 10 mg Oral acti ve 10 mg, Oral, 2 Times Daily, First dose on Tue03/07/20 at 2100, For 30 days
Check vital signs before administering
[facility] Medication administered onsite furosemide (LASIX) injection 80 mg [id number] 03/07/2020 02:45:00 PM EDT 80 mg Intravenous completed 80 mg, I ntravenous, Once, Tue03/07/20 at 1445, For 1 dose [facility] Medication administered onsite Calcium Carbonate 500 MG Chewable Tablet calcium carbonate (TUMS) chewable tablet 500 mg calcium carbonate (TUMS) chewable tablet 500 mg 2019 09:00:00 AM EDT 500 mg Oral active 500 mg, Oral, Four Times Daily Standard, First dose on Tue03/07/20 at 0900, For 30 days [facility] Medication administered onsite Calcitriol 0.16766 MG Oral Capsule calcitRIOL (ROCALTR OL) capsule 0.5 mcg calcitRIOL (ROCALTROL) capsule 0.5 mcg 03/07/2020 09:00:00 AM EDT 0 .5 ug Oral active 0.5 mcg, Oral, Daily Standard, First dose on Tue03/07/20 at 0900, For 30 days [facility] Medication administered onsite Amlodipine 5 MG Oral Tablet amlodipine (NORVASC) table t 10 mg amlodipine (NORVASC) tablet 10 mg 03/07/2020 09:00:00 AM EDT 10 mg Oral active 10 mg, Oral, Daily Standard, First dose on Tue03/07/20 at 0900, For 8 doses [facility] Medication administered onsite pantoprazole 40 MG Delayed Release Oral Tablet pantoprazole (PROTONIX) EC tablet 40 mg pantoprazole (PROTONIX) EC tablet 40 mg 03/07/2020 09:00:00 AM E DT 40 mg Oral active 40 mg, Ora l, Daily Standard, First dose on Tue03/07/20 at 0900, For 30 days
Do not crush or chew
[facility] Medication administered onsite Metoprolol Tartrate 25 MG Oral Tablet me toprolol tartrate (LOPRESSOR) tablet 25 mg metoprolol tartrate (LOPRESSOR) tablet 25 mg 03/07/2020 09:00:00 AM EDT 25 mg Oral active 25 mg, Ora l, 2 Times Daily, First dose on Tue03/07/20 at 0900, For 30 days [facility] Medication administered onsite torsemide 20 MG Oral Tablet torsemide (DEMADEX) tablet 100 mg torsemide (DEMADEX) tablet 100 mg 03/07/2020 09:00:00 AM EDT 100 mg Oral active 100 mg, Oral, Daily Standard, First dose on Tue03/07/20 at 0900, For 30 days [facility] Medication administered onsite Prednisone 5 MG Oral Tablet predniSONE (DELTASONE) tab let 10 mg predniSONE (DELTASONE) tablet 10 mg 03/07/2020 09:00:00 AM EDT 10 mg Oral active 10 mg, Oral, Daily Standard, First dose on Tue03/07/20 at 0900, For 10 doses [facility] Medication administered onsite Allopurinol 300 MG Oral Tablet allopurinol (ZYLOPRIM) tablet 300 mg allopurinol (ZYLOPRIM) tablet 300 mg 03/07/2020 09:00:00 AM EDT 300 mg Oral active 300 mg, Oral, Daily Standard, First dose on Tue at 0900, For 30 days [facility] Medication administered onsite 72 HR Fentanyl 0.025 MG/HR Transdermal P atch fentaNYL (DURAGESIC) 25 MCG/HR transdermal patch 1 patch fentaNYL (DURAGESIC) 25 MCG/HR transderm al patch 1 patch 03/07/2020 05:30:00 AM EDT 1 {patch} Transdermal com pleted 1 patch, Transdermal, Administer over 72 Hours, Every 72 hours, First dose on Tue03/07/20 at 0530, For 3 doses [facility] Medication administered onsite Oxymetazoline hydrochloride 0.5 MG/ML Na [facility] [place] oxymetazoline (AFRIN) 0.05 % nasal spray 3 spray oxymetazoline (AFRIN) 0.05 % nasal spray 3 spray 03/07 03:59:09 AM EDT 3 {spray} Nasal aborted 3 spray, Nasal, Daily PRN, Congestion, Starting Tue03/07/20 at 0359, For 3 days
if acute bleed, 3 squirts per nare & holding direct pressure x 20 minutes
[facility] Medication administered onsite Sodium Chloride 0.111 MEQ/ML Nasal Solut ion sodium chloride (OCEAN) 0.65 % nasal spray 2 spray sodium chloride (OCEAN) 0.65 % nasal spray 2 spray 03:53:51 AM EDT 2 {spray} Each Nare active 2 spray, Each Nare, Every 1 hour PRN, Congestion, Starting Tue03/07/20 at 0353, For 30 days [facility] Medication administered onsite NaCl infusion 0.9 % [id number] 03/07/2020 02:00:00 AM EDT Intravenous aborted at 75 mL/hr, Intrave nous, Continuous, Starting Tue03/07/20 at 0200, For 12 hours [facility] Medication administered onsite Cyclobenzaprine hydrochloride 10 MG Oral Tablet cyclobenzaprine (FLEXERIL) tablet 10 mg cyclobenzaprine (FLEXERIL) tablet 10 mg 03/07/2020 01:48:15 AM EDT 10 mg Oral active 10 mg, Oral, Thr ee Times Daily-PRN, Muscle spasms, Starting Tue03/07/20 at 0148, For 30 days [facility] Medication administered onsite 72 HR Fentanyl 0.025 MG/HR Transdermal P atch fentaNYL 25 MCG/HR Transdermal Patch 72 Hour (DURAGESIC) fentaNYL 25 MCG/HR Transdermal Patch 72 Hour (DURAGESIC) 03/07/2020 12:00:00 AM EDT 1 {patch} Transdermal aborted Place 1 patch onto the skin every 3 (three) days for 3 days, Max Daily Dose: 1 patch [facility] Oxymetazoline hydrochloride 0.5 MG/ML Na [facility] [place] oxymetazoline (AFRIN) 0.05 % nasal spray 2 spray oxymetazoline (AFRIN) 0.05 % nasal spray 2 spray 03/06 09:00:00 PM EDT 2 {spray} Each Nare completed 2 spray, Each Nare, Once, [facility] 03/06/20 at 2100, For 1 dose
To bedside for ENT.
[facility] Medication administered onsite 10 mg 03/06/2020 12:00:00 AM EDT tablet 60 TAKE ONE TABLET BY MOUTH TWICE A DAY TAKE ONE TABLET BY MOUTH TWICE A DAY SOLD: 06/19/2020 [facility] Prednisone 10 MG Oral Tablet predniSONE 10 MG Oral Tab let (DELTASONE) predniSONE 10 MG Oral Tablet (DELTASONE) 03/06/2020 12:00:00 AM EDT 10 mg Or al active Take 1 tablet by mouth daily [facility] 10 mg 03/06/2020 12:00:00 AM EDT tablet 60 TAKE ONE TABLET BY MOUTH TWICE A DAY TAKE ONE TABLET BY MOUTH TWICE A DAY SOLD: 05/21/2020 [facility] 0.5 mcg 03/06/2020 12:00:00 AM EDT capsule 30 TAKE ONE CAPSULE BY MOUTH EVERY DAY TAKE ONE CAPSULE BY MOUTH EVERY DAY SOLD: 03/08/2020 [facility] 100 mg 03/06/2020 12:00:00 AM EDT capsule 90 TAKE ONE CAPSULE BY MOUTH EVERY NIGHT TAKE ONE CAPSULE BY MOUTH EVERY NIGHT SOLD: 03/08/2020 [facility] Calcitriol 0.0005 MG Oral Capsule Calcitriol 0.5 MCG O ral Capsule (ROCALTROL) Calcitriol 0.5 MCG Oral Capsule (ROCALTROL) 03/06/2020 12:00:00 AM EDT 0.5 ug Oral aborted Take 1 capsule by mo uth daily [facility] 10 mg 03/06/2020 12:00:00 AM EDT tablet 60 TAKE ONE TABLET BY MOUTH TWICE A DAY TAKE ONE TABLET BY MOUTH TWICE A DAY SOLD: 03/08/2020 [facility] 10 mg 03/06/2020 12:00:00 AM EDT tablet 60 TAKE ONE TABLET BY MOUTH TWICE A DAY TAKE ONE TABLET BY MOUTH TWICE A DAY SOLD: 11/11/2020 [facility] 10 mg 03/06/2020 12:00:00 AM EDT tablet 60 TAKE ONE TABLET BY MOUTH TWICE A DAY TAKE ONE TABLET BY MOUTH TWICE A DAY SOLD: 07/21/2020 [facility] 10 mg 03/06/2020 12:00:00 AM EDT tablet 60 TAKE ONE TABLET BY MOUTH TWICE A DAY TAKE ONE TABLET BY MOUTH TWICE A DAY SOLD: 10/14/2020 [facility] 10 mg 03/06/2020 12:00:00 AM EDT tablet 58 TAKE ONE TABLET BY MOUTH TWICE A DAY TAKE ONE TABLET BY MOUTH TWICE A DAY SOLD: 08/19/2020 [facility] 0.5 mcg 03/06/2020 12:00:00 AM EDT capsule 30 TAKE ONE CAPSULE BY MOUTH EVERY DAY TAKE ONE CAPSULE BY MOUTH EVERY DAY SOLD: 04/16/2020 [facility] 25 mg 03/06/2020 12:00:00 AM EDT tablet 60 TAKE ONE TABLET BY MOUTH TWICE A DAY TAKE ONE TABLET BY MOUTH TWICE A DAY SOLD: 03/06/2020 [facility] 10 mg 03/06/2020 12:00:00 AM EDT tablet 60 TAKE ONE TABLET BY MOUTH TWICE A DAY TAKE ONE TABLET BY MOUTH TWICE A DAY SOLD: 09/15/2020 [facility] 0.5 mcg 03/06/2020 12:00:00 AM EDT capsule 30 TAKE ONE CAPSULE BY MOUTH EVERY DAY TAKE ONE CAPSULE BY MOUTH EVERY DAY SOLD: 05/21/2020 [facility] 10 mg 03/06/2020 12:00:00 AM EDT tablet 60 TAKE ONE TABLET BY MOUTH TWICE A DAY TAKE ONE TABLET BY MOUTH TWICE A DAY SOLD: 04/16/2020 [facility] Metoprolol Tartrate 25 MG Oral Tablet me toprolol tartrate (LOPRESSOR) tablet 25 mg metoprolol tartrate (LOPRESSOR) tablet 25 mg 03/05/2020 02:45:00 PM EDT 25 mg Oral active 25 mg, Oral, Once, Tue at 1445, For 1 dose [facility] Medication administered onsite Cephalexin 250 MG Oral Capsule cephalexin (KEFLEX) cap wilfredo 250 mg cephalexin (KEFLEX) capsule 250 mg 03/05/2020 01:15:00 PM EDT 250 mg Oral completed 250 mg, Oral, Once, Tue03/05/20 at 1315, For 1 dose [facility] Medication administered onsite iron sucrose (VENOFER) 400 mg in sodium chloride 0.9 % 250 m L IVPB 03/05/2020 11:15:00 AM EDT 400 mg Intravenous completed 400 mg, Intravenous, Administer over 4 Hours, Once, Tue03/05/20 at 1115, For 1 dose [facility] Medication administered onsite epoetin chiqui-epbx (RETACRIT) injection 10,000 Units 03/05/2020 11:00:00 AM EDT [id number] U Subcutaneous completed Anemia associated with Chronic Renal Failure 10,000 Units, Subcutaneous, Once, Indications: Anemia associated with Chronic Renal Failure, Tue03/05/20 at 1100, For 1 dose [facility] Anemia associated with Chronic Renal [facility] Medication administered onsite Minoxidil 10 MG Oral Tablet minoxidil (LONITEN) tablet 10 mg minoxidil (LONITEN) tablet 10 mg 03/05/2020 09:00:00 AM EDT 10 mg Oral acti ve 10 mg, Oral, 2 Times Daily, First dose (after last modification) on Tue03/05/20 at 0900, For 52 doses
Check vital signs before administering
[facility] Medication administered onsite Oxymetazoline hydrochloride 0.5 MG/ML Na leelee Alhambra oxymetazoline (AFRIN) 0.05 % nasal spray 2 spray oxymetazoline (AFRIN) 0.05 % nasal spray 2 spray 03/05 09:00:00 AM EDT 2 {spray} Each Nare active 2 spray, Each Nare, 2 Times Daily, First dose on Tue03/05/20 at 0900, For 3 days [facility] Medication administered onsite 4 ML Labetalol hydrochloride 5 MG/ML [facility] labetalol (TRANDATE) injection 20 mg labetalol (TRANDATE) injection 20 mg 03/05/2020 05:30:00 AM EDT 20 mg Intravenous completed 20 mg, Intrav enous, Once, Tue03/05/20 at 0530, For 1 dose [facility] Medication administered onsite Oxycodone Hydrochloride 5 MG Oral Tablet oxyCODONE HCl 5 MG Oral Tablet (ROXICODONE) oxyCODONE HCl 5 MG Oral Tablet (ROXICODONE) 03/05/2020 12:00:00 AM EDT 5 mg Oral aborted Take 1 t ablet by mouth every 4 (four) hours as needed for up to 3 days, Max Daily Dose: 30 mg [facility] Cyclobenzaprine hydrochloride 10 MG Oral Tablet CYCLOBENZAPR INE HCL 03/05/2020 12:00:00 AM EDT tablet 30 TAKE ONE TABLET BY MOUTH THREE TIMES A DAY NEEDED FOR MUSCLE SPASMS FOR UP TO 10 DAYS TAKE ONE TABLET BY MOUTH THREE TIMES A D AY NEEDED FOR MUSCLE SPASMS FOR UP TO 10 DAYS SOLD: 03/05/2020 [facility] gabapentin 100 MG Oral Capsule Gabapentin 100 MG Oral Capsule (NEURONTIN) Gabapentin 100 MG Oral Capsule (NEURONTIN) 03/05/2020 12:00:00 AM EDT 100 mg Oral active Take 1 capsule by mo ut nightly [facility] alginic acid 200 MG / Calcium Carbonate 80 MG / magnesium trisilicate 20 MG / Sodium Bicarbonate 70 MG Oral Tablet Calcium Carbonate Antacid 500 MG Oral Tablet Chewable (TUMS) Calcium Carbonate Antacid 500 MG Oral Ta blet Chewable (TUMS) 03/05/2020 12:00:00 AM EDT 500 mg Oral active Chew 1 tablet by Mouth Four times daily [facility] Cyclobenzaprine hydrochloride 10 MG Oral Tablet Cyclobenzaprine HCl 10 MG Oral Tablet (FLEXERIL) Cyclobenzaprine HCl 10 MG Oral Tablet (FLEXERIL) 03/05 12:00:00 AM EDT 10 mg Oral completed Take 1 tablet by mouth Three times daily as needed for Muscle spasms for up to 10 days [facility] 5 mg 03/05/2020 12:00:00 AM EDT tablet 18 TAKE ONE TABLET BY MOUTH EVERY 4 HOURS NEEDED MAXIMUM DAILY DOSE = 6 TAKE ONE TABLET BY MOUTH EVERY 4 HOURS A S NEEDED MAXIMUM DAILY DOSE = 6 SOLD: 03/05/2020 [facility] Acetaminophen 325 MG Oral Tablet Acetaminophen 325 MG Oral T ablet 03/05/2020 12:00:00 AM EDT 650 mg Oral completed Take 2 tablets by mouth every 6 (six) hours as needed for Pain [facility] Minoxidil 10 MG Oral Tablet Minoxidil 10 MG Oral Table t (LONITEN) Minoxidil 10 MG Oral Tablet (LONITEN) 03/05/2020 12:00:00 AM EDT 10 mg Oral active Take 1 tablet by mouth Two Times Daily [facility] 325 mg 03/05/2020 12:00:00 AM EDT tablet 30 TAKE TWO TABLETS BY MOUTH EVERY 6 HOURS NEEDED FOR PAIN TAKE TWO TABLETS BY MOUTH EVERY 6 HOURS NEEDED FOR PAIN SOLD: 03/05/2020 [facility] 10 mg 03/05/2020 12:00:00 AM EDT tablet 30 TAKE ONE TABLET BY MOUTH EVERY DAY TAKE ONE TABLET BY MOUTH EVERY DAY SOLD: 03/05/2020 [facility] Cephalexin 250 MG Oral Capsule Cephalexin 250 MG Oral Capsule (KEFLEX) Cephalexin 250 MG Oral Capsule (KEFLEX) 03/05/2020 12:00:00 AM EDT 250 mg Oral active Take 1 capsule by mo [facility] Two Times Daily for 7 days [facility] Metoprolol Tartrate 25 MG Oral Tablet Me toprolol Tartrate 25 MG Oral Tablet (LOPRESSOR) Metoprolol Tartrate 25 MG Oral Tablet (LOPRESSOR) 02/08 12:00:00 AM EDT 25 mg Oral active Take 1 tablet by mouth Two Times Daily [facility] 250 mg 03/05/2020 12:00:00 AM EDT capsule 14 TAKE ONE CAPSULE BY MOUTH TWICE A DAY FOR 7 DAYS TAKE ONE CAPSULE BY MOUTH TWICE A DAY FOR 7 DAYS SOLD: 03/05/2020 [facility] oxyCODONE (ROXICODONE) immediate release tablet 5 mg 03/04/2020 09:57:08 PM EDT 5 mg Oral active [Order 1 Start] Name: oxyCODONE (ROXICODONE) immediate release tablet 5 mg Signed Summary: 5 mg, Oral, Every 4 hours PRN, Moderate Pain (Pain Scale Score 4-6), Starting Tue03/04/20 at 2156, For 3 d ays
Oxycodone immediate release is limited to 10 mg per dose. Higher doses ([facility] only) require Pain Service consultation and approval.
[Order 1 End] [Order 2 Start] Name: oxyCODONE (ROXICODONE) immediate release tablet 10 mg Signed Summary: 10 mg, Oral, Every 4 hours PRN, Severe Pain (Pain Scale Score 7-10), Starting Tue03/04/20 at 2157, For 3 days
Oxycodone immediate release is limited to 10 mg per dose. Higher doses ([facility] only) require Pain Service consultation and approval.
[Order 2 End] [facility] Medication administered onsite TC-99M medronate (Tc-MDP) [address]-7 03/04/2020 09:30:00 AM EDT Intravenous completed Intravenous, Once, Tue03/04/20 at 0930, For 1 dose, Imaging Protocol [facility] Medication administered onsite Cyclobenzaprine hydrochloride 10 MG Oral Tablet cyclobenzaprine (FLEXERIL) tablet 10 mg cyclobenzaprine (FLEXERIL) tablet 10 mg 03/02/2020 11:16:42 AM EDT 10 mg Oral active 10 mg, Oral, Thr ee Times Daily-PRN, Muscle spasms, Starting 03/02/20 at 1116, For 30 days [facility] Medication administered onsite Calcitriol 0.0005 MG Oral Capsule calcitRIOL (ROCALTRO L) capsule 0.5 mcg calcitRIOL (ROCALTROL) capsule 0.5 mcg 03/02/2020 09:00:00 AM EDT 0 .5 ug Oral active 0.5 mcg, Oral, Daily Standard, First dose (after last modification) on 03/02/20 at 0900, For 29 doses [facility] Medication administered onsite Magnesium Oxide 400 MG Oral Tablet Magnesium Oxide (MA G-OX) tablet 400 mg Magnesium Oxide (MAG-OX) tablet 400 mg 03/02/2020 09:00:00 AM EDT 4 00 mg Oral active 400 mg, Oral, 2 Times Daily, First dose on 03/02/20 at 0900, For 30 days [facility] Medication administered onsite calcium gluconate in NaCl 0.9 % infusion 1 g/50 mL [id number] 03/02/2020 07:45:00 AM EDT 1 g Intravenous completed 1 g, Intravenous, Administer over 1 Hours, Once, 03/02/20 at 0745, For 1 dose
1 g calcium gluconate = 90 mg elemental Ca++ = 4.5 mEq Ca++. Dosed on mg of calcium gluconate.
[facility] Medication administered onsite calcium gluconate in NaCl 0.9 % infusion 1 g/50 mL [id number] 03/02/2020 07:45:00 AM EDT 1 g Intravenous completed 1 g, Intravenous, Administer over 1 Hours, Once, 03/02/20 at 0745, For 1 dose
1 g calcium gluconate = 90 mg elemental Ca++ = 4.5 mEq Ca++. Dosed on mg of calcium gluconate.
[facility] Medication administered onsite Calcium Carbonate 500 MG Chewable Tablet calcium carbonate (TUMS) chewable tablet 500 mg calcium carbonate (TUMS) chewable tablet 500 mg 2019 07:30:00 AM EDT 500 mg Oral active 500 mg, Oral, Four Times Daily Standard, First dose on 03/02/20 at 0730, For 30 days [facility] Medication administered onsite gabapentin 100 MG Oral Capsule gabapentin (NEURONTIN) capsule 100 mg gabapentin (NEURONTIN) capsule 100 mg 03/01/2020 10:00:00 PM EDT 100 mg Oral active 100 mg, Oral, Nightly, First dose on 03/01/20 at 2200, For 30 days [facility] Medication administered onsite torsemide 20 MG Oral Tablet torsemide (DEMADEX) tablet 60 mg torsemide (DEMADEX) tablet 60 mg 03/01/2020 10:00:00 PM EDT 60 mg Oral activ e 60 mg, Oral, Nightly, First dose on 03/01/20 at 2200, For 30 days [facility] Medication administered onsite Simvastatin 20 MG Oral Tablet simvastatin (ZOCOR) tabl et 20 mg simvastatin (ZOCOR) tablet 20 mg 03/01/2020 10:00:00 PM EDT 20 mg Oral active 20 mg, Oral, Nightly, First dose on 03/01/20 at 2200, For 30 days [facility] Medication administered onsite Minoxidil 2.5 MG Oral Tablet minoxidil (LONITEN) table t 5 mg minoxidil (LONITEN) tablet 5 mg 03/01/2020 09:00:00 PM EDT 5 mg Oral aborte d 5 mg, Oral, 2 Times Daily, First dose (after last modification) on 03/01/20 at 2100, For 59 doses
Check vital signs before administering
[facility] Medication administered onsite calcium gluconate in NaCl 0.9 % infusion 1 g/50 mL [id number] 03/01/2020 05:15:00 PM EDT 1 g Intravenous completed 1 g, Intravenous, Administer over 1 Hours, Once, 03/01/20 at 1715, For 1 dose
1 g calcium gluconate = 90 mg elemental Ca++ = 4.5 mEq Ca++. Dosed on mg of calcium gluconate.
[facility] Medication administered onsite Acetaminophen 325 MG Oral Tablet acetaminophen (TYLENO L) tablet 975 mg acetaminophen (TYLENOL) tablet 975 mg 03/01/2020 03:30:00 PM EDT 97 5 mg Oral active 975 mg, Oral, E very 8 hours, First dose on 03/01/20 at 1530, For 30 days
Maximum daily dose of acetaminophen is 3,000 mg from all sources in 24 hours.
[facility] Medication administered onsite 72 HR Fentanyl 0.025 MG/HR Transdermal P atch fentaNYL (DURAGESIC) 25 MCG/HR transdermal patch 1 patch fentaNYL (DURAGESIC) 25 MCG/HR transderm al patch 1 patch 03/01/2020 02:45:00 PM EDT 1 {patch} Transdermal act napoleon 1 patch, Transdermal, Administer over 72 Hours, Every 72 hours, First dose on 03/01/20 at 1445, For 7 days [facility] Medication administered onsite 72 HR Fentanyl 0.05 MG/HR Transdermal Pa tch fentaNYL (DURAGESIC) 50 MCG/HR transdermal patch 1 patch fentaNYL (DURAGESIC) 50 MCG/HR transderm al patch 1 patch 03/01/2020 01:30:00 PM EDT 1 {patch} Transdermal abo rted 1 patch, Transdermal, Administer over 72 Hours, Every 72 hours, First dose on 03/01/20 at 1330, For 7 days [facility] Medication administered onsite 120 ACTUAT Albuterol 0.1 MG/ACTUAT / Ipr atropium [place] 0.02 MG/ACTUAT Metered Dose Inhaler ipratropium-albuterol (COMBIVENT RESPIMAT) inhaler 1 puff ipratropium-albuterol (COMBIVENT RESPIMAT) inhaler 1 puff 03/01/2020 11:48:40 AM EDT 1 {puff} Inhalation active 1 pu ff, Inhalation, Every 6 hours PRN, Wheezing, Starting 03/01/20 at 1148, For 6 days 20 hours [facility] Medication administered onsite fentaNYL (SUBLIMAZE) (PF) injection 25 mcg [id number] 03/01/2020 11:04:55 AM EDT 25 ug Intravenous aborted 25 m cg, Intravenous, Every 2 hours PRN, Severe Pain (Pain Scale Score 7-10), Starting 03/01/20 at 1104, For 1 day [facility] Medication administered onsite heparin (porcine) 5000 UNIT/ML injection 5,000 Units [id number] 03/01/2020 09:00:00 AM EDT 5000 U Subcutaneous active 5,000 Units, Subcutaneous, Three Times Daily Standard, First dose on 03/01/20 at 0900, For 30 days [facility] Medication administered onsite Prednisone 5 MG Oral Tablet predniSONE (DELTASONE) tab let 10 mg predniSONE (DELTASONE) tablet 10 mg 03/01/2020 09:00:00 AM EDT 10 mg Oral active 10 mg, Oral, Daily Standard, First dose (after last modification) on 03/01/20 at 0900, For 30 days
Take with food.
[facility] Medication administered onsite torsemide 100 MG Oral Tablet torsemide (DEMADEX) table t 100 mg torsemide (DEMADEX) tablet 100 mg 03/01/2020 09:00:00 AM EDT 100 mg Oral active 100 mg, Oral, Daily Standard, First dose (after last modification) on 03/01/20 at 0900, For 10 days [facility] Medication administered onsite Amlodipine 5 MG Oral Tablet amlodipine (NORVASC) table t 10 mg amlodipine (NORVASC) tablet 10 mg 03/01/2020 09:00:00 AM EDT 10 mg Oral active 10 mg, Oral, Daily Standard, First dose on 03/01/20 at 0900, For 30 doses [facility] Medication administered onsite ferrous gluconate 324 MG Oral Tablet Ferrous Gluconate (FERGON) tablet 324 mg Ferrous Gluconate (FERGON) tablet 324 mg 03/01/2020 09:00:00 AM EDT 324 mg Oral active 324 mg, Oral, 2 Times Daily, First dose on 03/01/20 at 0900, For 30 days [facility] Medication administered onsite Folic Acid 1 MG Oral Tablet folic acid (FOLVITE) table t 1 mg folic acid (FOLVITE) tablet 1 mg 03/01/2020 09:00:00 AM EDT 1 mg Oral active 1 mg, Oral, Daily Standard, First dose on 03/01/20 at 0900, For 30 days [facility] Medication administered onsite cetirizine hydrochloride 10 MG Oral Tablet cetirizine (ZYRTEC) tablet 10 mg cetirizine (ZYRTEC) tablet 10 mg 03/01/2020 09:00:00 AM EDT 10 mg Oral active 10 mg, Oral, Daily Standard, First dose on 03/01/20 at 0900, For 30 days [facility] Medication administered onsite Vitamin B6 50 MG Oral Tablet vitamin B-6 (PYRIDOXINE) tablet 100 mg vitamin B-6 (PYRIDOXINE) tablet 100 mg 03/01/2020 09:00:00 AM EDT 100 mg Oral active 100 mg, Oral, Daily Standar d, First dose on 03/01/20 at 0900, For 30 doses [facility] Medication administered onsite pantoprazole 40 MG Delayed Release Oral Tablet pantoprazole (PROTONIX) EC tablet 40 mg pantoprazole (PROTONIX) EC tablet 40 mg 03/01/2020 09:00:00 AM E DT 40 mg Oral active 40 mg, Ora l, Daily Standard, First dose on 03/01/20 at 0900, For 30 days
Do not crush or chew
[facility] Medication administered onsite Allopurinol 300 MG Oral Tablet allopurinol (ZYLOPRIM) tablet 300 mg allopurinol (ZYLOPRIM) tablet 300 mg 03/01/2020 09:00:00 AM EDT 300 mg Oral active 300 mg, Oral, Daily Standard, First dose on Sat at 0900, For 30 days [facility] Medication administered onsite albuterol (PROVENTIL HFA) inhaler 2 puff [id number] 03/01/2020 05:19:35 AM EDT 2 {puff} Inhalation active 2 pu ff, Inhalation, Every 4 hours PRN, Wheezing, Shortness of Breath, Starting 03/01/20 at 0519, For 7 days 2 hours
Shake the inhaler well before each spray.
[facility] Medication administered onsite Acetaminophen 325 MG Oral Tablet acetaminophen (TYLENO L) tablet 650 mg acetaminophen (TYLENOL) tablet 650 mg 03/01/2020 04:03:36 AM EDT 65 0 mg Oral aborted 650 mg, Oral, E very 4 hours PRN, Mild Pain (Pain Scale Score 1- 3), Starting 03/01/20 at 0403, For 30 days
Maximum daily dose of acetaminophen is 3,000 mg from all sources in 24 hours.
[facility] Medication administered onsite 20 mg 02/21/2020 12:00:00 AM EDT tablet 270 TAKE 3 TABLETS BY MOUTH ONCE IN THE EVENING TAKE 3 TABLETS BY MOUTH ONCE IN THE EVENING SOLD: 02/23/2020 [facility] nivolumab (OPDIVO) 480 mg in sodium chloride 0.9 % 100 mL ch emo infusion 02/14/2020 02:00:00 PM EDT 480 mg Intravenous c ompleted Malignant melanoma of nose 480 mg, Intravenous, Adminis ter over 30 Minutes, Once, [facility] 02/14/20 at 1400, For 1 dose [facility] Malignant melanoma of nose Medication administered onsite Calcitriol 0.74704 MG Oral Capsule 0.25 mcg CALCITRIOL 02/12/2020 12:00:00 AM EDT capsule 180 TAKE 2 CAPSULES BY MOUTH ONC E A DAY TAKE 2 CAPSULES BY MOUTH ONCE A DAY SOLD: 05/13/2020 [facility] Calcitriol 0.10406 MG Oral Capsule 0.25 mcg CALCITRIOL 02/12/2020 12:00:00 AM EDT capsule 180 TAKE 2 CAPSULES BY MOUTH ONC E A DAY TAKE 2 CAPSULES BY MOUTH ONCE A DAY SOLD: 02/14/2020 [facility] 2.5 mg 02/12/2020 12:00:00 AM EDT tablet 270 TAKE 2 TABLET BY MOUTH ONCE IN THE MORNING AND TAKE 1 TABLET IN THE EVENING TAKE 2 TABLET BY MOUTH ONCE IN THE MORNING AND TAKE 1 TABLET IN THE EVENING SOLD: 02/14/2020 [facility] 10 mg 02/07/2020 12:00:00 AM EDT tablet 30 TAKE ONE TABLET BY MOUTH EVERY DAY TAKE ONE TABLET BY MOUTH EVERY DAY SOLD: 05/21/2020 [facility] 10 mg 02/07/2020 12:00:00 AM EDT tablet 30 TAKE ONE TABLET BY MOUTH EVERY DAY TAKE ONE TABLET BY MOUTH EVERY DAY SOLD: 06/19/2020 [facility] 10 mg 02/07/2020 12:00:00 AM EDT tablet 30 TAKE ONE TABLET BY MOUTH EVERY DAY TAKE ONE TABLET BY MOUTH EVERY DAY SOLD: 03/12/2020 [facility] 10 mg 02/07/2020 12:00:00 AM EDT tablet 30 TAKE ONE TABLET BY MOUTH EVERY DAY TAKE ONE TABLET BY MOUTH EVERY DAY SOLD: 04/16/2020 [facility] 10 mg 02/07/2020 12:00:00 AM EDT tablet 30 TAKE ONE TABLET BY MOUTH EVERY DAY TAKE ONE TABLET BY MOUTH EVERY DAY SOLD: 02/10/2020 [facility] 10 mg 02/07/2020 12:00:00 AM EDT tablet 30 TAKE ONE TABLET BY MOUTH EVERY DAY TAKE ONE TABLET BY MOUTH EVERY DAY SOLD: 07/21/2020 [facility] 10 mg 01/29/2020 12:00:00 AM EDT tablet 90 TAKE ONE TABLET BY MOUTH AT BEDTIME TAKE ONE TABLET BY MOUTH AT BEDTIME SOLD: 01/31/2020 [facility] 20 mg 01/28/2020 12:00:00 AM EDT tablet 30 TAKE ONE TABLET BY MOUTH EVERY DAY TAKE ONE TABLET BY MOUTH EVERY DAY SOLD: 06/27/2020 [facility] 20 mg 01/28/2020 12:00:00 AM EDT tablet 90 TAKE ONE TABLET BY MOUTH EVERY DAY TAKE ONE TABLET BY MOUTH EVERY DAY SOLD: 01/28/2020 [facility] 20 mg 01/28/2020 12:00:00 AM EDT tablet 30 TAKE ONE TABLET BY MOUTH EVERY DAY TAKE ONE TABLET BY MOUTH EVERY DAY SOLD: 05/23/2020 [facility] 20 mg 01/28/2020 12:00:00 AM EDT tablet 30 TAKE ONE TABLET BY MOUTH EVERY DAY TAKE ONE TABLET BY MOUTH EVERY DAY SOLD: 04/26/2020 [facility] Calcitriol 0.32432 MG Oral Capsule 0.25 mcg CALCITRIOL 01/24/2020 12:00:00 AM EDT capsule 30 TAKE ONE CAPSULE BY MOUTH EV NORA DAY TAKE ONE CAPSULE BY MOUTH EVERY DAY SOLD: 01/28/2020 [facility] Acetaminophen 325 MG / Hydrocodone Eun trate 5 MG Oral Tablet HYDROcodone- Acetaminophen 5-325 MG Oral Tablet (LORTAB) HYDROcodone-Acetaminophen 5-325 MG Oral Tablet (LORTAB) 01/21/2020 12:00:00 AM EDT 1 {tbl} Oral active Take 1 tablet by mouth every 6 (six) hours as needed for Pain for up to 3 days, Max Daily Dose: 4 tablets [facility] 5-325 mg 01/21/2020 12:00:00 AM EDT tablet 90 TAKE 1 TABLET BY MOUTH EVERY 6 HOURS NEEDED FOR PAIN DAYS MAXIMUM DAILY DOSE = 4 TABLETS TAKE 1 TABLET BY MOUTH EVERY 6 HOURS NEEDED FOR PAIN DAYS MAXIMUM DAILY DOSE = 4 TABLETS SOLD: 01/22/2020 [facility] 10 mg 01/18/2020 12:00:00 AM EDT tablet 14 TAKE ONE TABLET BY MOUTH AT BEDTIME NEEDED TAKE ONE TABLET BY MOUTH AT BEDTIME NEEDED SOLD: [facility] 8.6-50 mg 01/11/2020 12:00:00 AM EDT tablet 60 TAKE 2 TABLETS BY MOUTH ONCE AT BEDTIME NEEDED TAKE 2 TABLETS BY MOUTH ONCE AT BEDTIME NEEDED SOLD : 01/12/2020 [facility] Potassium Chloride 10 MEQ Extended Release Oral Tablet POTAS SIUM CHLORIDE 01/11/2020 12:00:00 AM EDT tablet extended release 60 TAKE 1 TABLET BY MOUTH TWO TIMES A DAY TAKE 1 TABLET BY MOUTH TWO TIMES A DAY SOLD: 03/12/2020 [facility] 10 mEq 01/11/2020 12:00:00 AM EDT tablet extended release 60 TAKE 1 TABLET BY MOUTH TWO TIMES A DAY TAKE 1 TABLET BY MOUTH TWO TIMES A DAY SOLD: 0 [facility] 8.6-50 mg 01/11/2020 12:00:00 AM EDT tablet 60 TAKE 2 TABLETS BY MOUTH ONCE AT BEDTIME NEEDED TAKE 2 TABLETS BY MOUTH ONCE AT BEDTIME NEEDED SOLD : 02/10/2020 [facility] 8.6-50 mg 01/11/2020 12:00:00 AM EDT tablet 60 TAKE 2 TABLETS BY MOUTH ONCE AT BEDTIME NEEDED TAKE 2 TABLETS BY MOUTH ONCE AT BEDTIME NEEDED SOLD : 03/12/2020 [facility] 8.6-50 mg 01/11/2020 12:00:00 AM EDT tablet 60 TAKE 2 TABLETS BY MOUTH ONCE AT BEDTIME NEEDED TAKE 2 TABLETS BY MOUTH ONCE AT BEDTIME NEEDED SOLD : 04/16/2020 [facility] Potassium Chloride 10 MEQ Extended Release Oral Tablet POTAS SIUM CHLORIDE 01/11/2020 12:00:00 AM EDT tablet extended release 60 TAKE 1 TABLET BY MOUTH TWO TIMES A DAY TAKE 1 TABLET BY MOUTH TWO TIMES A DAY SOLD: 06/19/2020 [facility] Potassium Chloride 10 MEQ Extended Release Oral Tablet POTAS SIUM CHLORIDE 01/11/2020 12:00:00 AM EDT tablet extended release 60 TAKE 1 TABLET BY MOUTH TWO TIMES A DAY TAKE 1 TABLET BY MOUTH TWO TIMES A DAY SOLD: 05/21/2020 [facility] Potassium Chloride 10 MEQ Extended Release Oral Tablet POTAS SIUM CHLORIDE 01/11/2020 12:00:00 AM EDT tablet extended release 60 TAKE 1 TABLET BY MOUTH TWO TIMES A DAY TAKE 1 TABLET BY MOUTH TWO TIMES A DAY SOLD: 02/10/2020 [facility] Potassium Chloride 10 MEQ Extended Release Oral Tablet POTAS SIUM CHLORIDE 01/11/2020 12:00:00 AM EDT tablet extended release 60 TAKE 1 TABLET BY MOUTH TWO TIMES A DAY TAKE 1 TABLET BY MOUTH TWO TIMES A DAY SOLD: 04/20/2020 [facility] 8 mg 01/10/2020 12:00:00 AM EDT tablet,disintegrating [address] ONE TABLET UNDER THE TONGUE EVERY 8 HOURS NEEDED FOR NAUSEA AND VOMITING PLACE ONE TABLET UNDER THE TONGUE EVERY 8 HOURS NEEDED FOR NAUSEA AND VOMITING SOLD: 01/11/2020 [facility] Ondansetron 8 MG Disintegrating Oral Tab let Ondansetron 8 MG Oral Tablet Disintegrating Ondansetron 8 MG Oral Tablet Disintegrating 01/10/2020 12:00:00 AM EDT 8 mg Oral aborted Take 1 t ablet by mouth every 8 (eight) hours as needed for Nausea or Vomiting for up to 7 days [facility] Allopurinol 300 MG Oral Tablet Allopurinol 300 MG Oral Tablet (ZYLOPRIM) Allopurinol 300 MG Oral Tablet (ZYLOPRIM) 01/08/2020 12:00:00 AM EDT 300 mg Oral aborted Take 1 tablet by sheela th daily [facility] Prednisone 10 MG Oral Tablet predniSONE 10 MG Oral Tab let (DELTASONE) predniSONE 10 MG Oral Tablet (DELTASONE) 01/08/2020 12:00:00 AM EDT 10 mg Ora l active Take 1 tablet by mouth daily [facility] Magnesium Oxide 400 MG Oral Tablet Magne sium Oxide 400 (241.3 Mg) MG Oral Tablet (MAG-OX) Magnesium Oxide 400 (241.3 Mg) MG Oral Tablet (MAG-OX) 01/07/2020 12:00:00 AM EDT 400 mg Oral active Take 1 tablet by mouth Two Times Daily [facility] Ondansetron 4 MG Oral Tablet Ondansetron HCl 4 MG Oral Tablet (ZOFRAN) Ondansetron HCl 4 MG Oral Tablet (ZOFRAN) 01/07/2020 12:00:00 AM EDT 4 mg Oral aborted Take 1 tablet by mouth every 8 (eight) hours as needed for Nausea for up to 3 days [facility] Simvastatin 20 MG Oral Tablet Simvastatin 20 MG Oral T ablet (ZOCOR) Simvastatin 20 MG Oral Tablet (ZOCOR) 01/07/2020 12:00:00 AM EDT 20 mg Oral aborted Take 1 tablet by mouth nightly [facility] Acetaminophen 325 MG / Hydrocodone Eun trate 5 MG Oral Tablet HYDROcodone- Acetaminophen 5-325 MG Oral Tablet (LORTAB) HYDROcodone-Acetaminophen 5-325 MG Oral Tablet (LORTAB) 01/07/2020 12:00:00 AM EDT 1 {tbl} Oral aborted Take 1 tablet by mouth every 6 (six) hours as needed for Pain for up to 7 days, Max Daily Dose: 4 tablets [facility] pantoprazole 40 MG Delayed Release Oral Tablet Pantoprazole Sodium 40 MG Oral Tablet Delayed Release (PROTONIX) Pantoprazole Sodium 40 MG Oral Tablet De layed Release (PROTONIX) 01/07/2020 12:00:00 AM EDT 40 mg Oral active Take 1 tablet by mouth daily [facility] fentaNYL (SUBLIMAZE) (PF) injection 25 mcg [id number] 01/06/2020 10:57:29 AM EDT 25 ug Intravenous active 25 m cg, Intravenous, Every 4 hours PRN, Severe Pain (Pain Scale Score 7-10), Starting 01/06/20 at 1057, For 3 days [facility] Medication administered onsite Acetaminophen 325 MG / Hydrocodone Eun trate 5 MG Oral Tablet HYDROcodone- acetaminophen (LORTAB) 5-325 MG per tablet 1 tablet HYDROcodone-acetaminophen (LORTAB) 5-325 MG per tablet 1 tablet 01/06/2020 09:46:56 AM EDT 1 {tbl} Oral active 1 tablet, Oral, Every 6 hours PRN, Moderate Pain (Pain Scale Score 4-6), Starting 01/06/20 at 0946, For 3 days
Maximum daily dose of acetaminophen is 3,000 mg from all sources in 24 hours.
[facility] Medication administered onsite NaCl infusion 0.9 % [id number] 01/05/2020 01:15:00 PM EDT Intravenous completed at 75 mL/hr, Intrave nous, Continuous, Starting 01/05/20 at 1315, For 1 day [facility] Medication administered onsite Allopurinol 300 MG Oral Tablet allopurinol (ZYLOPRIM) tablet 300 mg allopurinol (ZYLOPRIM) tablet 300 mg 01/05/2020 09:00:00 AM EDT 300 mg Oral active 300 mg, Oral, Daily Standard, First dos e (after last modification) on 01/05/20 at 0900, For 7 days [facility] Medication administered onsite torsemide 100 MG Oral Tablet torsemide (DEMADEX) table t 100 mg torsemide (DEMADEX) tablet 100 mg 01/05/2020 09:00:00 AM EDT 100 mg Oral active 100 mg, Oral, Daily Standard, First dose on 01/05/20 at 0900, For 30 days [facility] Medication administered onsite Calcitriol 0.62038 MG Oral Capsule calcitRIOL (ROCALTR OL) capsule 0.25 mcg calcitRIOL (ROCALTROL) capsule 0.25 mcg 01/05/2020 09:00:00 AM EDT 0.25 ug Oral active 0.25 mcg, Oral , Daily Standard, First dose on 01/05/20 at 0900, For 30 days [facility] Medication administered onsite Prednisone 5 MG Oral Tablet predniSONE (DELTASONE) tab let 10 mg predniSONE (DELTASONE) tablet 10 mg 01/05/2020 09:00:00 AM EDT 10 mg Oral active 10 mg, Oral, Daily Standard, First dose (after last modification) on 01/05/20 at 0900, For 30 days
Take with food.
[facility] Medication administered onsite Folic Acid 1 MG Oral Tablet folic acid (FOLVITE) table t 1 mg folic acid (FOLVITE) tablet 1 mg 01/05/2020 09:00:00 AM EDT 1 mg Oral active 1 mg, Oral, Daily Standard, First dose on 01/05/20 at 0900, For 30 days [facility] Medication administered onsite Vitamin B6 50 MG Oral Tablet vitamin B-6 (PYRIDOXINE) tablet 100 mg vitamin B-6 (PYRIDOXINE) tablet 100 mg 01/05/2020 09:00:00 AM EDT 100 mg Oral active 100 mg, Oral, Daily Standard, First dos e on 01/05/20 at 0900, For 7 days [facility] Medication administered onsite pantoprazole 40 MG Delayed Release Oral Tablet pantoprazole (PROTONIX) EC tablet 40 mg pantoprazole (PROTONIX) EC tablet 40 mg 01/05/2020 09:00:00 AM E DT 40 mg Oral active 40 mg, Ora l, Daily Standard, First dose on 01/05/20 at 0900, For 30 days
Do not crush or chew
[facility] Medication administered onsite morphine sulfate (PF) injection 2 mg [id number] 01/05/2020 08:57: 24 AM EDT 2 mg Intravenous aborted 2 mg, In travenous, Every 2 hours PRN, Severe Pain (Pain Scale Score 7-10), Starting 01/05/20 at 0857, For 3 days [facility] Medication administered onsite Oxycodone Hydrochloride 5 MG Oral Tablet oxyCODONE (ROXICODONE) immediate release tablet 10 mg oxyCODONE (ROXICODONE) immediate release tablet 10 mg 01/05/2020 08:56:58 AM EDT 10 mg Oral aborted 10 mg, Oral, Every 4 hours PRN, Moderate Pain (Pain Scale Score 4-6), Starting 01/05/20 at 0856, For 3 days
Oxycodone immediate release is limited to 10 mg per dose. Higher doses ( only) require Pain Service consultation and approval.
[facility] Medication administered onsite Acetaminophen 325 MG Oral Tablet acetaminophen (TYLENO L) tablet 650 mg acetaminophen (TYLENOL) tablet 650 mg 01/04/2020 11:10:00 PM EDT 65 0 mg Oral completed 650 mg, Oral, E very 6 hours, First dose (after last modification) on Tue01/04/20 at 2315, For 12 hours
Maximum daily dose of acetaminophen is 3,000 mg from all sources in 24 hours.
[facility] Medication administered onsite Simvastatin 20 MG Oral Tablet simvastatin (ZOCOR) tabl et 20 mg simvastatin (ZOCOR) tablet 20 mg 01/04/2020 10:00:00 PM EDT 20 mg Oral active 20 mg, Oral, Nightly, First dose on Tue01/04/20 at 2200, For 30 days [facility] Medication administered onsite ferrous gluconate 324 MG Oral Tablet Ferrous Gluconate (FERGON) tablet 324 mg Ferrous Gluconate (FERGON) tablet 324 mg 01/04/2020 09:00:00 PM EDT 324 mg Oral active 324 mg, Oral, 2 Times Daily, First dose (after last modification) on Tue01/04/20 at 2100, For 7 days [facility] Medication administered onsite Tacrolimus 1 MG Oral Capsule tacrolimus (PROGRAF) caps ule 1 mg tacrolimus (PROGRAF) capsule 1 mg 01/04/2020 09:00:00 PM EDT 1 mg Oral aborted 1 mg, Oral, 2 Times Daily, First dose on Tue01/04/20 at 2100, For 30 days
If capsule administered intact use "MODERATE RISK" hazardous precautions, if capsule is being opened and administered sublingually use "HIGH RISK" hazardous precautions.For sublingual use: open capsules and place the contents of the capsule under the tongue allowing contents to completely dissolve; avoid food, beverages, or mechanical suctioning for at least 30 minutes after administration.
[facility] Medication administered onsite fentaNYL (SUBLIMAZE) (PF) injection 50 mcg [id number] 01/04/2020 06:45:00 PM EDT 50 ug Intravenous completed 50 mcg, Intravenous, Once, Tue01/04/20 at 1845, For 1 dose [facility] Medication administered onsite ondansetron (ZOFRAN) injection 4 mg [id number] 01/04/2020 06:36:2 0 PM EDT 4 mg Intravenous completed 4 mg, In travenous, Every 8 hours PRN, Nausea, Vomiting, Starting Tue01/04/20 at 1836, For 1 day [facility] Medication administered onsite Amlodipine 5 MG Oral Tablet amlodipine (NORVASC) table t 10 mg amlodipine (NORVASC) tablet 10 mg 01/04/2020 05:15:00 PM EDT 10 mg Oral active 10 mg, Oral, Daily Standard, First dose (after last modification) on Tue01/04/20 at 1715, For 7 doses [facility] Medication administered onsite torsemide 20 MG Oral Tablet torsemide (DEMADEX) tablet 40 mg torsemide (DEMADEX) tablet 40 mg 01/04/2020 05:15:00 PM EDT 40 mg Oral activ e 40 mg, Oral, Every evening, First dose (after last modification) on Tue01/04/20 at 1715, For 30 days [facility] Medication administered onsite heparin (porcine) 5000 UNIT/ML injection 5,000 Units [id number] 01/04/2020 05:00:00 PM EDT 5000 U Subcutaneous active 5,000 Units, Subcutaneous, Three Times Daily Standard, First dose on Tue01/04/20 at 1700, For 30 days [facility] Medication administered onsite Oxycodone Hydrochloride 5 MG Oral Tablet oxyCODONE (ROXICODONE) immediate release tablet 5 mg oxyCODONE (ROXICODONE) immediate release tablet 5 mg 01/04/2020 05:00:00 PM EDT 5 mg Oral completed 5 mg, Oral, Once, Tue01/04/20 at 1700, For 1 dose
Oxycodone immediate release is limited to 10 mg per dose. Higher doses ([facility] only) require Pain Service consultation and approval.
[facility] Medication administered onsite Acetaminophen 325 MG Oral Tablet acetaminophen (TYLENO L) tablet 650 mg acetaminophen (TYLENOL) tablet 650 mg 01/04/2020 04:54:55 PM EDT 65 0 mg Oral aborted 650 mg, Oral, E very 6 hours PRN, Mild Pain (Pain Scale Score 1- 3), Starting Tue01/04/20 at 1654, For 1 day
Maximum daily dose of acetaminophen is 3,000 mg from all sources in 24 hours.
[facility] Medication administered onsite NaCl infusion 0.9 % [id number] 01/04/2020 01:15:00 PM EDT Intravenous completed at 75 mL/hr, Intrave nous, Continuous, Starting Tue01/04/20 at 1315, For 1 day [facility] Medication administered onsite ondansetron (ZOFRAN) injection 4 mg [id number] 01/04/2020 10:30:0 0 AM EDT 4 mg Given by IV completed 4 mg, Gi flavia by IV, Once, Tue01/04/20 at 1030, For 1 dose [facility] Medication administered onsite Oxycodone Hydrochloride 5 MG Oral Tablet oxyCODONE (ROXICODONE) immediate release tablet 5 mg oxyCODONE (ROXICODONE) immediate release tablet 5 mg 01/04/2020 10:00:00 AM EDT 5 mg Oral completed 5 mg, Oral, Once, Tue01/04/20 at 1000, For 1 dose
Oxycodone immediate release is limited to 10 mg per dose. Higher doses ([facility] only) require Pain Service consultation and approval.
[facility] Medication administered onsite Acetaminophen 10 MG/ML Injectable Soluti on acetaminophen (OFIRMEV) infusion 1,000 mg acetaminophen (OFIRMEV) infusion 1,000 mg 01/04/2020 10:00:00 AM EDT 1000 mg Intravenous completed 1,000 mg , Intravenous, Administer over 15 Minutes, Once, Tue01/04/20 at 1000, For 1 dose
Maximum dose 3 gm daily from all sources
[facility] Medication administered onsite Piperacillin 3000 MG / tazobactam 375 MG Injection piperacillin-tazobactam (ZOSYN) IVPB 3.375 g (premix) piperacillin-tazobactam (ZOSYN) IVPB 3.3 75 g (premix) 01/04/2020 09:15:00 AM EDT 3.375 g Intravenous com pleted 3.375 g, Intravenous, Administer over 0.5 Hours, Once, Tue01/04/20 at 0915, For 1 dose [facility] Medication administered onsite 10 mg 01/03/2020 12:00:00 AM EDT tablet 60 TAKE ONE TABLET BY MOUTH EVERY 4 HOURS NEEDED FOR PAIN MAXIMUM DAILY DOSE = 6 TAKE ONE TABLET BY MOUTH EVERY 4 HOURS NEEDED FOR PAIN MAXIMUM DAILY DOSE = 6 SOLD: 01/07/2020 [facility] 5-325 mg 12/31/2019 12:00:00 AM EDT tablet 45 TAKE 1 TABLET BY MOUTH EVERY 4 HOURS NEEDED FOR PAIN MAXIMUM DAILY DOSE = 6 TABLETS TAKE 1 TABLET BY MOUTH EVERY 4 HOURS NEEDED FOR PAIN MAXIMUM DAILY DOSE = 6 TABLETS SOLD: 01/02/2020 [facility] 2.5 mg 12/27/2019 12:00:00 AM EDT tablet 60 TAKE ONE TABLET BY MOUTH TWICE A DAY TAKE ONE TABLET BY MOUTH TWICE A DAY SOLD: 01/28/2020 [facility] 2.5 mg 12/27/2019 12:00:00 AM EDT tablet 60 TAKE ONE TABLET BY MOUTH TWICE A DAY TAKE ONE TABLET BY MOUTH TWICE A DAY SOLD: 12/28/2019 [facility] 1 mg 12/24/2019 12:00:00 AM EDT tablet 30 TAKE ONE TABLET BY MOUTH EVERY DAY TAKE ONE TABLET BY MOUTH EVERY DAY SOLD: 07/21/2020 [facility] 1 mg 12/24/2019 12:00:00 AM EDT tablet 26 TAKE ONE TABLET BY MOUTH EVERY DAY TAKE ONE TABLET BY MOUTH EVERY DAY SOLD: 06/27/2020 [facility] 1 mg 12/24/2019 12:00:00 AM EDT tablet 30 TAKE ONE TABLET BY MOUTH EVERY DAY TAKE ONE TABLET BY MOUTH EVERY DAY SOLD: 08/19/2020 [facility] 1 mg 12/24/2019 12:00:00 AM EDT tablet 90 TAKE ONE TABLET BY MOUTH EVERY DAY TAKE ONE TABLET BY MOUTH EVERY DAY SOLD: 03/29/2020 [facility] 1 mg 12/24/2019 12:00:00 AM EDT tablet 90 TAKE ONE TABLET BY MOUTH EVERY DAY TAKE ONE TABLET BY MOUTH EVERY DAY SOLD: 12/26/2019 [facility] 5-325 mg 12/20/2019 12:00:00 AM EDT tablet 45 TAKE 1 TABLET BY MOUTH EVERY 4 HOURS NEEDED FOR PAIN MAXIMUM DAILY DOSE = 6 TABLETS TAKE 1 TABLET BY MOUTH EVERY 4 HOURS NEEDED FOR PAIN MAXIMUM DAILY DOSE = 6 TABLETS SOLD: 12/20/2019 [facility] Acetaminophen 325 MG / Hydrocodone Bitartrate 5 MG Oral Tabl et [[place]] [place] 12/20/2019 12:00:00 AM EDT active [facility] ([facility], ) 5 mg 12/20/2019 12:00:00 AM EDT tablet 46 TAKE 4 TABLETS BY MOUTH DAILY FOR 7 DAYS THEN 3 TABLETS DAILY FOR 3 DAYS THEN TWO TABLETS DAILY FOR 3 DAYS THEN ONE TABLET DAILY FOR 3 DAYS TAKE 4 TABLETS BY MOUTH DAILY FOR 7 DAYS THEN 3 TABLETS DAILY FOR 3 DAYS THEN TWO TABLETS DAILY FOR 3 DAYS THEN ONE TABLET DAILY FOR 3 DAYS SOLD: 12/20/2019 [facility] 20 mg 12/17/2019 12:00:00 AM EDT tablet 30 TAKE ONE TABLET BY MOUTH EVERY DAY TAKE ONE TABLET BY MOUTH EVERY DAY SOLD: 12/20/2019 [facility] Acetaminophen 300 MG / Codeine Phosphate 30 MG Oral Tablet [Tylenol with Codeine] Tylenol With Codeine #3 12/14/2019 12:00:00 AM EST ORAL completed [facility] ([facility], ) 300-30 mg 12/14/2019 12:00:00 AM EST tablet 42 TAKE 1 TABLET BY MOUTH EVERY 4 HOURS NEEDED MAXIMUM DAILY DOSE = 6 TABLETS TAKE 1 TABLET BY MOUTH EVERY 4 HOURS NEEDED MAXIMUM DAILY DOSE = 6 TABLETS SOLD: 12/17/2019 [facility] 15 mEq 12/10/2019 12:00:00 AM EST tablet extended release 60 TAKE ONE TABLET BY MOUTH TWICE A DAY TAKE ONE TABLET BY MOUTH TWICE A DAY SOLD: 01/02/2020 [facility] 15 mEq 12/10/2019 12:00:00 AM EST tablet extended release 60 TAKE ONE TABLET BY MOUTH TWICE A DAY TAKE ONE TABLET BY MOUTH TWICE A DAY SOLD: 04/26/2020 [facility] 15 mEq 12/10/2019 12:00:00 AM EST tablet extended release 60 TAKE ONE TABLET BY MOUTH TWICE A DAY TAKE ONE TABLET BY MOUTH TWICE A DAY SOLD: 02/28/2020 [facility] 15 mEq 12/10/2019 12:00:00 AM EST tablet extended release 16 TAKE ONE TABLET BY MOUTH TWICE A DAY TAKE ONE TABLET BY MOUTH TWICE A DAY SOLD: 12/11/2019 [facility] 15 mEq 12/10/2019 12:00:00 AM EST tablet extended release 60 TAKE ONE TABLET BY MOUTH TWICE A DAY TAKE ONE TABLET BY MOUTH TWICE A DAY SOLD: 03/29/2020 [facility] 15 mEq 12/10/2019 12:00:00 AM EST tablet extended release 60 TAKE ONE TABLET BY MOUTH TWICE A DAY TAKE ONE TABLET BY MOUTH TWICE A DAY SOLD: 01/31/2020 [facility] 15 mEq 12/10/2019 12:00:00 AM EST tablet extended release 44 TAKE ONE TABLET BY MOUTH TWICE A DAY TAKE ONE TABLET BY MOUTH TWICE A DAY SOLD: 12/17/2019 [facility] 100 mg 11/30/2019 12:00:00 AM EST tablet 180 TAKE ONE TABLET BY MOUTH TWICE A DAY TAKE ONE TABLET BY MOUTH TWICE A DAY SOLD: 11/30/2019 [facility] 10 mg 11/30/2019 12:00:00 AM EST tablet 14 TAKE ONE TABLET BY MOUTH AT BEDTIME TAKE ONE TABLET BY MOUTH AT BEDTIME SOLD: 11/30/2019 [facility] 100 mg 11/30/2019 12:00:00 AM EST tablet 180 TAKE ONE TABLET BY MOUTH TWICE A DAY TAKE ONE TABLET BY MOUTH TWICE A DAY SOLD: 06/03/2020 [facility] 100 mg 11/30/2019 12:00:00 AM EST tablet 180 TAKE ONE TABLET BY MOUTH TWICE A DAY TAKE ONE TABLET BY MOUTH TWICE A DAY SOLD: 02/28/2020 [facility] 20 mg 11/15/2019 12:00:00 AM EST tablet 174 TAKE ONE TABLET BY MOUTH TWICE A DAY TAKE ONE TABLET BY MOUTH TWICE A DAY SOLD: 11/18/2019 [facility] 324 mg (38 mg iron) 11/07/2019 12:00:00 AM EST tablet 60 TAKE 1 TABLET BY MOUTH TWO TIMES A DAY TAKE 1 TABLET BY MOUTH TWO TIMES A DAY SOLD: 11/14/2019 [facility] 324 mg (38 mg iron) 11/07/2019 12:00:00 AM EST tablet 60 TAKE 1 TABLET BY MOUTH TWO TIMES A DAY TAKE 1 TABLET BY MOUTH TWO TIMES A DAY SOLD: 02/10/2020 [facility] 324 mg (38 mg iron) 11/07/2019 12:00:00 AM EST tablet 60 TAKE 1 TABLET BY MOUTH TWO TIMES A DAY TAKE 1 TABLET BY MOUTH TWO TIMES A DAY SOLD: 12/11/2019 [facility] 324 mg (38 mg iron) 11/07/2019 12:00:00 AM EST tablet 60 TAKE 1 TABLET BY MOUTH TWO TIMES A DAY TAKE 1 TABLET BY MOUTH TWO TIMES A DAY SOLD: 01/11/2020 [facility] 2.5 mg 11/02/2019 12:00:00 AM EST tablet 120 TAKE 2 TABLETS BY MOUTH TWO TIMES A DAY TAKE 2 TABLETS BY MOUTH TWO TIMES A DAY SOLD: 12/06/2019 [facility] 250 mg 11/02/2019 12:00:00 AM EST tablet 7 TAKE 1 TABLET BY MOUTH ONCE A DAY TAKE 1 TABLET BY MOUTH ONCE A DAY SOLD: 11/18/2019 [facility] 2.5 mg 11/02/2019 12:00:00 AM EST tablet 120 TAKE 2 TABLETS BY MOUTH TWO TIMES A DAY TAKE 2 TABLETS BY MOUTH TWO TIMES A DAY SOLD: 11/07/2019 [facility] 2.5 mg 11/02/2019 12:00:00 AM EST tablet 120 TAKE 2 TABLETS BY MOUTH TWO TIMES A DAY TAKE 2 TABLETS BY MOUTH TWO TIMES A DAY SOLD: 01/07/2020 [facility] 5 mg 11/01/2019 12:00:00 AM EST tablet 70 TAKE 4 TABLETS BY MOUTH ONCE DAILY FOR 7 DAYS THEN TAKE 3 TABLETS ONCE DAILY FOR 7 DAYS THEN TAKE 2 TABLETS ONCE DAILY FOR 7 DAYS THEN TAKE 1 TABLET ONCE DAILY FOR 7 DAYS TAKE 4 TABLETS BY MOUTH ONCE DAILY FOR 7 DAYS THEN TAKE 3 TABLETS ONCE DAILY FOR 7 DAYS THEN TAKE 2 TABLETS ONCE DAILY FOR 7 DAYS THEN TAKE 1 TABLET ONCE DAILY FOR 7 DAYS SOLD: 11/01/2019 [facility] 500-125 mg 10/15/2019 12:00:00 AM EST tablet 42 TAKE ONE TABLET BY MOUTH THREE TIMES A DAY TAKE ONE TABLET BY MOUTH THREE TIMES A DAY SOLD: 10/15/2019 [facility] Prednisone 5 MG Oral Tablet Prednisone 10/15/2019 12:00:00 AM EST active [facility] ([facility], ) Amoxicillin 500 MG / Clavulanate 125 MG Oral Tablet [Augment in] Augmentin 10/15/2019 12:00:00 AM EST completed [facility] ([facility], ) Prednisone 20 MG Oral Tablet Prednisone 10/15/2019 12:00:00 AM EST completed [facility] ([facility], ) 20 mg 10/15/2019 12:00:00 AM EST tablet 7 TAKE ONE TABLET BY MOUTH EVERY DAY TAKE ONE TABLET BY MOUTH EVERY DAY SOLD: 10/15/2019 [facility] Calcitriol 0.69840 MG Oral Capsule 0.25 mcg CALCITRIOL 09/26/2019 12:00:00 AM EST capsule 30 TAKE ONE CAPSULE BY MOUTH EV NORA DAY TAKE ONE CAPSULE BY MOUTH EVERY DAY SOLD: 09/30/2019 [facility] Calcitriol 0.74622 MG Oral Capsule 0.25 mcg CALCITRIOL 09/26/2019 12:00:00 AM EST capsule 30 TAKE ONE CAPSULE BY MOUTH EV NORA DAY TAKE ONE CAPSULE BY MOUTH EVERY DAY SOLD: 12/28/2019 [facility] Calcitriol 0.82709 MG Oral Capsule 0.25 mcg CALCITRIOL 09/26/2019 12:00:00 AM EST capsule 30 TAKE ONE CAPSULE BY MOUTH EV NORA DAY TAKE ONE CAPSULE BY MOUTH EVERY DAY SOLD: 11/30/2019 [facility] Calcitriol 0.39362 MG Oral Capsule 0.25 mcg CALCITRIOL 09/26/2019 12:00:00 AM EST capsule 30 TAKE ONE CAPSULE BY MOUTH EV NORA DAY TAKE ONE CAPSULE BY MOUTH EVERY DAY SOLD: 11/01/2019 [facility] 500 mg 09/25/2019 12:00:00 AM EST tablet 4 TAKE ONE-HALF TABLET BY MOUTH ONCE DAILY FOR 7 DAYS TAKE ONE-HALF TABLET BY MOUTH ONCE DAILY FOR 7 DAYS SO LD: 09/25/2019 [facility] 37.5-25 mg 09/25/2019 12:00:00 AM EST tablet 90 TAKE ONE TABLET BY MOUTH EVERY DAY TAKE ONE TABLET BY MOUTH EVERY DAY SOLD: 09/25/2019 [facility] 2.5 mg 09/11/2019 12:00:00 AM EST tablet 60 TAKE ONE TABLET BY MOUTH TWICE A DAY TAKE ONE TABLET BY MOUTH TWICE A DAY SOLD: 10/11/2019 [facility] 5 mg 09/11/2019 12:00:00 AM EST tablet 30 TAKE ONE TABLET BY MOUTH EVERY DAY TAKE ONE TABLET BY MOUTH EVERY DAY SOLD: 11/30/2019 [facility] 5 mg 09/11/2019 12:00:00 AM EST tablet 30 TAKE ONE TABLET BY MOUTH EVERY DAY TAKE ONE TABLET BY MOUTH EVERY DAY SOLD: 10/11/2019 [facility] 5 mg 09/11/2019 12:00:00 AM EST tablet 30 TAKE ONE TABLET BY MOUTH EVERY DAY TAKE ONE TABLET BY MOUTH EVERY DAY SOLD: 02/28/2020 [facility] 2.5 mg 09/11/2019 12:00:00 AM EST tablet 60 TAKE ONE TABLET BY MOUTH TWICE A DAY TAKE ONE TABLET BY MOUTH TWICE A DAY SOLD: 11/30/2019 [facility] 5 mg 09/11/2019 12:00:00 AM EST tablet 30 TAKE ONE TABLET BY MOUTH EVERY DAY TAKE ONE TABLET BY MOUTH EVERY DAY SOLD: 01/28/2020 [facility] 5 mg 09/11/2019 12:00:00 AM EST tablet 30 TAKE ONE TABLET BY MOUTH EVERY DAY TAKE ONE TABLET BY MOUTH EVERY DAY SOLD: 01/02/2020 [facility] 80 mg 09/05/2019 12:00:00 AM EST tablet 30 TAKE ONE TABLET BY MOUTH EVERY DAY TAKE ONE TABLET BY MOUTH EVERY DAY SOLD: 11/14/2019 [facility] 80 mg 09/05/2019 12:00:00 AM EST tablet 30 TAKE ONE TABLET BY MOUTH EVERY DAY TAKE ONE TABLET BY MOUTH EVERY DAY SOLD: 10/11/2019 [facility] 80 mg 09/05/2019 12:00:00 AM EST tablet 30 TAKE ONE TABLET BY MOUTH EVERY DAY TAKE ONE TABLET BY MOUTH EVERY DAY SOLD: 12/11/2019 [facility] 10 mg 08/15/2019 12:00:00 AM EST tablet 30 TAKE ONE TABLET BY MOUTH EVERY DAY TAKE ONE TABLET BY MOUTH EVERY DAY SOLD: 12/11/2019 [facility] 300 mg 08/15/2019 12:00:00 AM EST tablet 90 TAKE ONE TABLET BY MOUTH EVERY DAY TAKE ONE TABLET BY MOUTH EVERY DAY SOLD: 11/14/2019 [facility] 300 mg 08/15/2019 12:00:00 AM EST tablet 90 TAKE ONE TABLET BY MOUTH EVERY DAY TAKE ONE TABLET BY MOUTH EVERY DAY SOLD: 02/10/2020 [facility] 10 mg 08/15/2019 12:00:00 AM EST tablet 30 TAKE ONE TABLET BY MOUTH EVERY DAY TAKE ONE TABLET BY MOUTH EVERY DAY SOLD: 10/11/2019 [facility] 10 mg 08/15/2019 12:00:00 AM EST tablet 30 TAKE ONE TABLET BY MOUTH EVERY DAY TAKE ONE TABLET BY MOUTH EVERY DAY SOLD: 11/14/2019 [facility] 10 mg 08/15/2019 12:00:00 AM EST tablet 30 TAKE ONE TABLET BY MOUTH EVERY DAY TAKE ONE TABLET BY MOUTH EVERY DAY SOLD: 01/11/2020 [facility] 0.5 mcg 07/13/2019 12:00:00 AM EDT capsule 12 TAKE 1 CAPSULE BY MOUTH ONCE A WEEK TAKE 1 CAPSULE BY MOUTH ONCE A WEEK SOLD: 10/11/2019 [facility] 324 mg (38 mg iron) 07/13/2019 12:00:00 AM EDT tablet 60 TAKE 1 TABLET BY MOUTH TWO TIMES A DAY TAKE 1 TABLET BY MOUTH TWO TIMES A DAY SOLD: 10/11/2019 [facility] 40 mg 06/15/2019 12:00:00 AM EDT tablet,delayed release (DR/EC) 90 TAKE ONE TABLET BY MOUTH EVERY DAY TAKE ONE TABLET BY MOUTH EVERY DAY SOLD: 12/20/2019 [facility] 40 mg 06/15/2019 12:00:00 AM EDT tablet,delayed release (DR/EC) 90 TAKE ONE TABLET BY MOUTH EVERY DAY TAKE ONE TABLET BY MOUTH EVERY DAY SOLD: 03/18/2020 [facility] 15 mEq 05/16/2019 12:00:00 AM EDT tablet extended release 60 TAKE ONE TABLET BY MOUTH TWICE A DAY TAKE ONE TABLET BY MOUTH TWICE A DAY SOLD: 11/01/2019 [facility] 15 mEq 05/16/2019 12:00:00 AM EDT tablet extended release 60 TAKE ONE TABLET BY MOUTH TWICE A DAY TAKE ONE TABLET BY MOUTH TWICE A DAY SOLD: 09/30/2019 [facility] 1 mg 03/29/2019 12:00:00 AM EDT tablet 90 TAKE ONE TABLET BY MOUTH EVERY DAY TAKE ONE TABLET BY MOUTH EVERY DAY SOLD: 09/30/2019 [facility] Calcitriol 0.27281 MG Oral Capsule Calcitriol 0.25 MCG Oral Capsule (ROCALTROL) Calcitriol 0.25 MCG Oral Capsule (ROCALTROL) 0.25 ug Oral aborted Take 0.25 mcg by mouth daily [facility] Simvastatin 80 MG Oral Tablet Simvastatin 80 MG Oral T ablet (ZOCOR) Simvastatin 80 MG Oral Tablet (ZOCOR) 80 mg Oral aborted Take 80 mg by mouth nightly [facility] torsemide 100 MG Oral Tablet Torsemide 100 MG Oral Tab let (DEMADEX) Torsemide 100 MG Oral Tablet (DEMADEX) 100 mg Oral aborted Take 100 mg by mouth Two Times Daily [facility] torsemide 20 MG Oral Tablet Torsemide 20 MG Oral Table t (DEMADEX) Torsemide 20 MG Oral Tablet (DEMADEX) 40 mg Oral aborted Take 40 mg by mouth every evening [facility] Magnesium Oxide 400 MG Oral Tablet Magne sium Oxide 400 (241.3 Mg) MG Oral Tablet (MAG-OX) Magnesium Oxide 400 (241.3 Mg) MG Oral Tablet (MAG-OX) 1200 mg Oral aborted Take 1,200 mg by sheela th Two Times Daily [facility] Minoxidil 2.5 MG Oral Tablet Minoxidil 2.5 MG Oral Tab let (LONITEN) Minoxidil 2.5 MG Oral Tablet (LONITEN) 2.5 mg Oral aborted Take 2.5 mg by mouth Two Times Daily [facility] POTASSIUM CITRATE ER PO 15 meq Oral aborted Take 15 mEq by mouth Two Times Daily [facility] ezetimibe 10 MG / Simvastatin 40 MG Oral Tablet ezetimibe-simvastatin (VYTORIN) 10-40 MG per tablet ezetimibe-simvastatin (VYTORIN) 10-40 MG per tablet 1 {tbl} Oral aborted Take 1 tablet by mouth n ightly. [facility] pantoprazole 40 MG Delayed Release Oral Tablet pantoprazole (PROTONIX) 40 MG tablet pantoprazole (PROTONIX) 40 MG tablet 40 mg Oral aborted Take 40 mg by mouth daily. [facility] Allopurinol 300 MG Oral Tablet allopurinol (ZYLOPRIM) 300 MG tablet allopurinol (ZYLOPRIM) 300 MG tablet 300 mg Oral aborted Take 300 mg by mouth Two Times Daily [facility] Metoprolol Tartrate 25 MG Oral Tablet metoprolol (LOPR ESSOR) 25 MG tablet metoprolol (LOPRESSOR) 25 MG tablet 25 mg Oral ab orted Take 25 mg by mouth 2 (two) times daily. [facility] Aspirin 81 MG Oral Tablet aspirin 81 MG tablet aspirin 81 MG tablet 81 mg Oral aborted Take 81 mg by mouth daily. [facility] Tacrolimus 1 MG Oral Capsule tacrolimus (PROGRAF) 1 MG capsule tacrolimus (PROGRAF) 1 MG capsule 1 mg Oral aborted Take 1 mg by mouth Two Times Daily. [facility] Mycophenolic Acid 360 MG Delayed Release Oral Tablet mycophenolate (MYFORTIC) 360 MG TBEC mycophenolate (MYFORTIC) 360 MG TBEC 360 mg Oral aborted Take 360 mg by mouth 2 (two) times daily. [facility] Prednisone 5 MG Oral Tablet predniSONE (DELTASONE) 5 M G tablet predniSONE (DELTASONE) 5 MG tablet 5 mg Oral aborted Take 5 mg by mouth daily. [facility] Lisinopril 30 MG Oral Tablet lisinopril (PRINIVIL,ZEST RIL) 30 MG tablet lisinopril (PRINIVIL,ZESTRIL) 30 MG tablet 20 mg Oral aborted Take 20 mg by mouth Two Times Daily. [facility] Docusate Sodium 50 MG / sennosides, [facility] 8.6 MG Oral Tablet Sennosides-Docusate Sodium 8.6-50 MG Oral Tablet (Senexon-S) Sennosides-Docusate Sodium 8.6-50 MG Oral Tablet (Senexon-S) 1 {tbl} Oral aborted Take 1 tablet by mouth Two Times Daily [facility] Tacrolimus 1 MG Oral Capsule Tacrolimus 1 MG Oral Caps ule (PROGRAF) Tacrolimus 1 MG Oral Capsule (PROGRAF) 1 mg Oral aborted Take 1 mg by mouth Two Times Daily [facility] Mycophenolic Acid 360 MG Delayed Release Oral Tablet Mycophenolate Sodium 360 MG Oral Tablet Delayed Release (Myfortic) Mycophenolate Sodium 360 MG Oral Tablet Delayed Release (Myfortic) 360 mg Oral aborted Take 360 mg by mouth Two Times Daily [facility] Citric Acid 66.8 MG/ML / potassium citra te 220 MG/ML Oral Solution Potassium Citrate-Citric Acid 1100-334 MG/5ML Oral Solution (POLYCITRA-K) Potassium Citrate-Citric Acid 1100-334 MG/5ML Oral Solution (POLYCITRA-K) 15 meq Oral aborted Take 15 mEq by mouth Two Times Daily [facility] Insurance Providers Payer name Policy type / Coverage type Policy ID Covered alliance party ID Covered alliance party's relationship to balderas Policy Balderas Plan Information MEDICARE [id number] [id number] [facility] [id number] [id number] MEDICARE A [id number] Self [id number] [id number] UMR U [id number] Spouse [id number] MEDICARE C [id number] S [id number] V21 UMR O [id number] S [id number] [facility] MEDIC[facility] DIVISION [id number] S [id number] [place]ICARE - [place] [id number] S [id number] UMR [id number] SPO [id number] MEDICARE A [id number] Self [id number] V21 SELF PAY MEDICARE [id number] SP [id number] UMR [id number] SP [id number] UMR 2 [id number] 1 [id number] MEDICARE OF [place] ([facility]) - [id number] 1 [id number] 1 [id number] MEDICARE [id number] SP [id number] T SELF PAY UMR [id number] SP [id number] MEDICARE A [id number] Self [id number] V21 UMR [id number] SP [id number] SELF PAY UMR [id number] SP [id number] UMR [id number] 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, 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 [employer] [id number] SPO [id number] UMR [facility] [id number] WI2 [id number] [employer] [id number] WI2 [id number] [employer] (pr) Commercial [id number] Family Dependent 8 [id number] [employer] (pr) Commercial [id number] Family Dependent 8 [id number] [employer] (pr) Commercial [id number] Family Dependent 8 [id number] [employer] (pr) Commercial [id number] Family Dependent 8 [id number] [employer] PPO O [id number] P [id number] [employer] [id number] S [id number] [employer] [id number] WI2 [id number] [employer] U [id number] Spouse [id number] [employer] U [id number] Self [id number] [employer] [id number] WI2 [id number] [employer] U [id number] Spouse [id number] [employer] [id number] SP [id number] [employer] [id number] SP [id number] [place]ICARE - [place] [facility] [id number] S [id number] [employer] O [id number] U [id number] Problems, Conditions, and Diagnoses Code Display Name Description Problem Type Effective Dates Data Source(s) Z79.899 Other ocean transportation intermediary (current) drug therapy O ther longterm (current) drug therapy Diagnosis 07/31/2020 09:07:46 AM EDT [facility] R93.7 Abnormal findings on diagnos tic imaging of other parts of musculoskeletal system ABNORMAL FINDINGS ON DIAGNOSTIC IMAGING OF PRT MS Diagnosis 07/08/2020 09:00:00 AM [facility] K80.20 Calculus of gallbladder without cholecys titis without obstruction CALCULUS OF GALLBLADDER W/O CHOLECYSTITIS W/O OBST Diagnosis 09:00:00 AM [facility] N28.1 Cyst of kidney, acquired CYST OF KIDNEY, ACQUIRED Diag nosis 07/08/2020 09:00:00 AM [facility] N26.9 Renal sclerosis, unspecified RENAL SCLEROSIS, UNSPECIF IED Diagnosis 07/08/2020 09:00:00 AM [facility] 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 Diagnosis 07/08/2020 09:00:00 AM [facility] R10.84 Generalized abdominal pain GENERALIZED ABDOMINAL PAIN Diagnosis 07/08/2020 09:00:00 AM [facility] R11.10 Vomiting, unspecified VOMITING, UNSPECIFIED Diagnosis 07/08/2020 09:00:00 AM [facility] R94.6 Abnormal results of thyroid function carol dies R94.6 - Abnormal results of thyroid function studies Diagnosis 07/04/2020 02:00:00 PM EDT [facility] Z51.81 Encounter for therapeutic drug level mon itoring Encounter for therapeutic drug level monitoring Diagnosis 07/03/2020 08:51:21 AM [facility] E05.90 Thyrotoxicosis, unspecified without thyr otoxic crisis or storm Thyrotoxicosis, unspecified without thyrotoxic crisis or storm Diagnosis 07/03/2020 08:51:21 AM [facility] C79.51 Secondary malignant neoplasm of bone C79 .51 - Secondary malignant neoplasm of bone Diagnosis 04/10/2020 08:18:00 PM EDT [facility] L80 Vitiligo Vitiligo Diagnosis 04/10/2020 09:27:58 AM [facility] D62 Acute posthemorrhagic anemia Acute posthemorrhagic ane terrence Diagnosis 03/07/2020 11:46:04 AM [facility] R04.0 Epistaxis Epistaxis Diagnosis 03/06/2020 11:39:00 PM [facility] Z85.820 Personal history of malignant melanoma o f skin Personal history of malignant melanoma of skin Diagnosis 03/06/2020 06:31:15 PM EDT [facility] Z87.891 Personal history of nicotine dependence Personal history of nicotine dependence Diagnosis 03/06/2020 06:31:15 PM [facility] Z94.0 Kidney transplant status Kidney transplant status Diag nosis 03/06/2020 06:31:15 PM [facility] N18.6 End stage renal disease End stage renal disease Diagno sis 03/06/2020 06:31:15 PM [facility] I12.0 Hypertensive chronic kidney disease with stage 5 chronic kidney disease or end stage renal disease Hypertensive chronic kidney disease with stage 5 chronic kidney disease or end stage renal disease Diagnosis 02/08 06:31:15 PM [facility] 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 Jason amaya at [facility], followed by Dr. 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, u nspecified C31.9 - Malignant neoplasm of accessory sinus, unspecified Diagnosis 02/07/2020 01:03:00 PM [facility] C43.10 Malignant melanoma of unspecified eyelid , including canthus Malignant melanoma of unspecified eyelid, including canthus Diagnosis 12/09 10:32:56 AM [facility] h/o melanoma right sinus to right orbita l increasing size h/o melanoma right sinus to right orbital increasing size Diagnosis 01/04/2020 08:14:52 A M [facility] J32.0 Chronic maxillary sinusitis CHRONIC MAXILLARY SINUSITI S Diagnosis 12/21/2019 12:50:00 PM [facility] 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 Diagnosis 12/21/2019 12:50:00 PM [facility] Z94.0 Kidney transplant status KIDNEY TRANSPLANT STATUS Diag nosis 10/11/2019 01:53:00 PM [facility] Z87.448 Personal history of other diseases of ur inary system PERSONAL HISTORY OF OTHER DISEASES OF URINARY SYST Diagnosis 10/11/2019 01:53:00 PM [facility] Z85.46 Personal history of malignant neoplasm o f prostate PERSONAL HISTORY OF MALIGNANT NEOPLASM OF PROSTATE Diagnosis 10/11/2019 01:53:00 PM [facility] F17.210 Nicotine dependence, cigarettes, uncompl icated NICOTINE DEPENDENCE, CIGARETTES, UNCOMPLICATED Diagnosis 10/11/2019 01:53:00 PM [facility] I10 Essential (primary) hypertension ESSENTIAL (PRIMARY) H YPERTENSION Diagnosis 10/11/2019 01:53:00 PM [facility] J34.1 Cyst and mucocele of nose and nasal sinu s CYST AND MUCOCELE OF NOSE AND NASAL SINUS Diagnosis 10/11/2019 01:53:00 PM [facility] R04.0 Epistaxis EPISTAXIS Diagnosis 10/11/2019 01:53:00 PM [facility] R09.81 Nasal congestion NASAL CONGESTION Diagnosis 10/11/2019 01 :53:00 PM [facility] Surgeries/Procedures Procedure Description Date Indications Data Source(s) Layer Closure Wound 7.6-12.5CM Scalp/Axillae/Trunk/Extremiti es 08/12/2020 12:00:00 AM EST [facility] ([facility] REPAIR BLOOD VESSEL DIRECT UPPER EXTREMITY 08/12/2020 12:00:00 AM EST [facility] ([facility]) BLOOD COUNT AUTOMATED DIFFERENTIAL WBC COUNT DIFFERENTIAL WITH WBC Routine 03/12/2020 1:53 AM EDT 03/12/2020 05:53:00 AM [facility] BLOOD COUNT COMPLETE AUTOMATED CBC Timed 03/12/2020 1:53 A M EDT 03/12/2020 05:53:00 AM [facility] THYROID STIMULATING HORMONE TSH TSH Routine 03/12/2020 1:53 AM EDT 03/12/2020 05:53:00 AM [facility] THYROXINE FREE T4, FREE Routine 03/12/2020 1:53 AM EDT 03/12/2020 05:53:00 AM [facility] HEPATIC FUNCTION PANEL HEPATIC FUNCTION PANEL A Routine 03/12/2020 1:53 AM EDT 03/12/2020 05:53:00 AM EDT [facility] BASIC METABOLIC PANEL CALCIUM TOTAL BASIC METABOLIC PANEL Routi ne 03/12/2020 1:53 AM EDT 03/12/2020 05:53:00 AM [facility] BLOOD COUNT COMPLETE AUTOMATED CBC Timed 03/11/2020 12:16 P M EDT 03/11/2020 04:16:00 PM [facility] BLOOD COUNT COMPLETE AUTOMATED CBC Timed 03/11/2020 12:55 A M EDT 03/11/2020 04:55:00 AM [facility] BASIC METABOLIC PANEL CALCIUM TOTAL BASIC METABOLIC PANEL Routi ne 03/11/2020 12:55 AM EDT 03/11/2020 04:55:00 AM EDT [facility] BLOOD COUNT COMPLETE AUTO&AUTO DIFRNTL WBC COUNT CBC AND DIFFER ENTIAL Routine 03/10/2020 12:37 PM EDT 03/10/2020 04:37:00 PM [facility] MRI ORBIT FACE &/NECK W/O CONTRAST MR FACE ONLY WITHOUT CONTRAS T [id number] Routine 03/10/2020 11:31 AM EDT Tumor 03/10/2020 03:31:23 PM EDT Tumor [facility] Tumor TRANSFUSE RBC (ONCE) TRANSFUSE RBC (ONCE) Routine 03/10/2020 10:24 AM EDT 03/10/2020 02:24:43 PM [facility] BLOOD COUNT COMPLETE AUTOMATED CBC Timed 03/10/2020 4:57 A M EDT 03/10/2020 08:57:00 AM [facility] BASIC METABOLIC PANEL CALCIUM TOTAL BASIC METABOLIC PANEL Routi ne 03/10/2020 4:57 AM EDT 03/10/2020 08:57:00 AM EDT [facility] BLOOD COUNT COMPLETE AUTOMATED CBC Timed 03/09/2020 6:31 P M EDT 03/09/2020 10:31:00 PM [facility] PLATELET AGGREGATION IN VITRO EACH AGENT [id number] Routin e 03/09/2020 2:14 PM EDT 03/09/2020 06:14:00 PM EDT [facility] CROSSMATCH, ADDITIONAL CROSSMATCH, ADDITIONAL Routine 020 2:14 PM EDT 03/09/2020 06:14:00 PM EDT [facility] BLOOD COUNT COMPLETE AUTOMATED CBC Routine 03/09/2020 2:14 P M EDT 03/09/2020 06:14:00 PM [facility] TRANSFUSE RBC (ONCE) TRANSFUSE RBC (ONCE) Routine 03/09/2020 11:18 AM EDT 03/09/2020 03:18:18 PM [facility] BLOOD COUNT COMPLETE AUTOMATED CBC Timed 03/09/2020 3:47 A M EDT 03/09/2020 07:47:00 AM [facility] BASIC METABOLIC PANEL CALCIUM TOTAL BASIC METABOLIC PANEL Routi ne 03/09/2020 3:47 AM EDT 03/09/2020 07:47:00 AM EDT [facility] BLOOD COUNT COMPLETE AUTO&AUTO DIFRNTL WBC COUNT CBC AND DIFFER ENTIAL Routine 03/08/2020 4:52 PM EDT 03/08/2020 08:52:00 PM [facility] TRANSFUSE RBC (ONCE) TRANSFUSE RBC (ONCE) Routine 03/08/2020 2:38 PM EDT 03/08/2020 06:38:05 PM [facility] ECHO TTHRC R-T 2D W/WOM-MODE COMPL SPEC&COLR DOP ECHOCARDIO GRAM 2D COMPLETE Routine 03/08/2020 8:49 AM EDT 03/08/2020 12:49:04 PM [facility] BLOOD COUNT COMPLETE AUTOMATED CBC STAT 03/08/2020 7:49 A M EDT 03/08/2020 11:49:00 AM [facility] TROPONIN QUANTITATIVE TROPONIN T Routine 03/08/2020 7:49 AM EDT 03/08/2020 11:49:00 AM [facility] BASIC METABOLIC PANEL CALCIUM TOTAL BASIC METABOLIC PANEL Routi ne 03/08/2020 7:49 AM EDT 03/08/2020 11:49:00 AM EDT [facility] BLOOD COUNT COMPLETE AUTOMATED CBC Timed 03/08/2020 6:17 A M EDT 03/08/2020 10:17:00 AM [facility] TRANSFUSE RBC (ONCE) TRANSFUSE RBC (ONCE) Routine 03/08/2020 5:40 AM EDT 03/08/2020 09:40:38 AM [facility] BLOOD COUNT COMPLETE AUTO&AUTO DIFRNTL WBC COUNT CBC AND DIFFER ENTIAL Routine 03/07/2020 11:11 PM EDT 03/08/2020 03:11:00 AM [facility] TROPONIN QUANTITATIVE TROPONIN T Routine 03/07/2020 11:11 PM EDT 03/08/2020 03:11:00 AM [facility] TRANSFUSE RBC (ONCE) TRANSFUSE RBC (ONCE) Routine 03/07/2020 10:39 PM EDT 03/08/2020 02:39:23 AM [facility] EKG 12-LEAD - CMAXX REPORT EKG 12-LEAD - CMAXX REPORT 03/07/2020 9:55 PM EDT 03/08/2020 01:55:47 AM EDT [facility] EKG 12-LEAD - CMAXX REPORT EKG 12-LEAD - CMAXX REPORT 03/07/2020 9:55 PM EDT 03/08/2020 01:55:47 AM EDT [facility] EKG 12-LEAD - CMAXX REPORT EKG 12-LEAD - CMAXX REPORT 03/07/2020 9:53 PM EDT 03/08/2020 01:53:58 AM EDT [facility] EKG 12-LEAD EKG 12-LEAD Routine 03/07/2020 9:53 PM EDT 03/08/2020 [facility] 19212 XR CHEST FRONTAL ONLY [id number] CODE 03/07/2020 9:45 PM EDT 03/08/2020 01:45:00 AM EDT [facility] BLOOD GASES ANY COMBINATION PH PCO2 PO2 CO2 HCO3 BLOOD GAS, ART ERIAL STAT 03/07/2020 9:44 PM EDT 03/08/2020 01:44:00 AM [facility] XR CHEST FRONTAL ONLY [id number] XR CHEST FRONTAL ONLY [id number] STAT 03/07/2020 8:06 PM EDT 03/08/2020 12:06:37 AM EDT [facility] CONFIRMATORY TYPE CONFIRMATORY TYPE Routine 03/07/2020 3:37 PM EDT 03/07/2020 07:37:00 PM [facility] BLOOD COUNT COMPLETE AUTOMATED CBC Routine 03/07/2020 3:37 P M EDT 03/07/2020 07:37:00 PM [facility] TRANSFUSE RBC (ONCE) TRANSFUSE RBC (ONCE) Routine 03/07/2020 2:50 PM EDT 03/07/2020 06:50:14 PM [facility] XR CHEST FRONTAL ONLY 07187 XR CHEST FRONTAL ONLY [id number] Routine 03/07/2020 1:03 PM EDT 03/07/2020 05:03:00 PM EDT [facility] BLOOD TYPING ABO TYPE AND CROSSMATCH Routine 03/07/2020 8:52 AM ED T 03/07/2020 12:52:00 PM [facility] NATRIURETIC PEPTIDE PROBNP Routine 03/07/2020 6:16 AM EDT 03/07/2020 10:16:00 AM [facility] BLOOD COUNT COMPLETE AUTO&AUTO DIFRNTL WBC COUNT CBC AND DIFFER ENTIAL Routine 03/07/2020 6:16 AM EDT 03/07/2020 10:16:00 AM [facility] BASIC METABOLIC PANEL CALCIUM TOTAL BASIC METABOLIC PANEL Routi ne 03/07/2020 6:16 AM EDT 03/07/2020 10:16:00 AM EDT [facility] PROTHROMBIN TIME PROTIME INR Routine 03/05/2020 1:37 PM EDT 03/05/2020 05:37:00 PM [facility] BLOOD COUNT COMPLETE AUTO&AUTO DIFRNTL WBC COUNT CBC AND DIFFER ENTIAL Routine 03/05/2020 1:37 PM EDT 03/05/2020 05:37:00 PM [facility] POCT GLUCOSE, DOCKED POCT GLUCOSE, DOCKED Routine 03/05/2020 12:18 PM EDT 03/05/2020 04:18:00 PM [facility] POCT GLUCOSE, DOCKED POCT GLUCOSE, DOCKED Routine 03/05/2020 8:16 AM EDT 03/05/2020 12:16:00 PM [facility] BLOOD COUNT COMPLETE AUTO&AUTO DIFRNTL WBC COUNT CBC AND DIFFER ENTIAL Routine 03/05/2020 4:02 AM EDT 03/05/2020 08:02:00 AM [facility] BASIC METABOLIC PANEL CALCIUM TOTAL BASIC METABOLIC PANEL Routi ne 03/05/2020 4:02 AM EDT 03/05/2020 08:02:00 AM EDT [facility] GLUCOSE QUANTITATIVE BLOOD XCPT REAGENT STRIP POCT GLUCOSE, DOC KED Routine 03/04/2020 9:22 PM EDT 03/05/2020 01:22:00 AM [facility] GLUCOSE QUANTITATIVE BLOOD XCPT REAGENT STRIP POCT GLUCOSE, DOC KED Routine 03/04/2020 5:34 PM EDT 03/04/2020 09:34:00 PM [facility] BONE &/JOINT IMAGING WHOLE BODY NM BONE SCAN IMAGING WHOLE BODY [id number] Routine 03/04/2020 3:48 PM EDT 03/04/2020 07:48:45 PM [facility] US TRNSPLNT KIDNEY REAL TIME W/IMAGE DOCMTN US RENAL TRANSPLANT [id number] Routine 03/04/2020 3:19 PM EDT 03/04/2020 07:19:45 PM [facility] RADIOLOGY REPORT RADIOLOGY REPORT 03/04/2020 1:04 PM EDT 03/04/2020 05:04:29 PM [facility] GLUCOSE QUANTITATIVE BLOOD XCPT REAGENT STRIP POCT GLUCOSE, DOC FLEX Routine 03/04/2020 12:16 PM EDT 03/04/2020 04:16:00 PM [facility] GLUCOSE QUANTITATIVE BLOOD XCPT REAGENT STRIP POCT GLUCOSE, DOC FLEX Routine 03/04/2020 8:17 AM EDT 03/04/2020 12:17:00 PM [facility] BASIC METABOLIC PANEL CALCIUM TOTAL BASIC METABOLIC PANEL Routi ne 03/04/2020 1:35 AM EDT 03/04/2020 05:35:00 AM EDT [facility] GLUCOSE QUANTITATIVE BLOOD XCPT REAGENT STRIP POCT GLUCOSE, DOC FLEX Routine 03/03/2020 10:51 PM EDT 03/04/2020 02:51:00 AM [facility] GLUCOSE QUANTITATIVE BLOOD XCPT REAGENT STRIP POCT GLUCOSE, DOC FLEX Routine 03/03/2020 5:29 PM EDT 03/03/2020 09:29:00 PM [facility] VASC LAB US HEMODIALYSIS ACCESS VASC LAB US HEMODIALYSIS ACCESS Routine 03/03/2020 12:55 PM EDT 03/03/2020 04:55:00 PM [facility] GLUCOSE QUANTITATIVE BLOOD XCPT REAGENT STRIP POCT GLUCOSE, DOC FLEX Routine 03/03/2020 12:22 PM EDT 03/03/2020 04:22:00 PM [facility] GLUCOSE QUANTITATIVE BLOOD XCPT REAGENT STRIP POCT GLUCOSE, DOC FLEX Routine 03/03/2020 8:09 AM EDT 03/03/2020 12:09:00 PM [facility] BLOOD COUNT COMPLETE AUTO&AUTO DIFRNTL WBC COUNT CBC AND DIFFER ENTIAL Routine 03/03/2020 12:14 AM EDT 03/03/2020 04:14:00 AM [facility] CREATINE KINASE TOTAL CK Routine 03/03/2020 12:14 AM EDT 03/03/2020 04:14:00 AM [facility] BASIC METABOLIC PANEL CALCIUM TOTAL BASIC METABOLIC PANEL Routi ne 03/03/2020 12:14 AM EDT 03/03/2020 04:14:00 AM [facility] GLUCOSE QUANTITATIVE BLOOD XCPT REAGENT STRIP POCT GLUCOSE, DOC FLEX Routine 03/02/2020 5:30 PM EDT 03/02/2020 09:30:00 PM [facility] GLUCOSE QUANTITATIVE BLOOD XCPT REAGENT STRIP POCT GLUCOSE, DOC KED Routine 03/02/2020 12:36 PM EDT 03/02/2020 04:36:00 PM [facility]ASC LAB US DOPPLER UPPER EXTREMITY UNILATERAL VENOUS LTD [id number] [facility] US DOPPLER UPPER EXTREMITY UNILATERAL VENOUS LTD 24032 Routine 9:54 AM EDT S/P kidney transplant 03/02/2020 01:54:00 PM EDT S/P kidney vargas [facility] S/P kidney transplant GLUCOSE QUANTITATIVE BLOOD XCPT REAGENT STRIP POCT GLUCOSE, DOC KED Routine 03/02/2020 8:26 AM EDT 03/02/2020 12:26:00 PM [facility] IRON TOTAL FE BINDING CAPACITY Routine 03/02/2020 1:00 AM EDT 03/02/2020 05:00:00 AM [facility] BLOOD COUNT COMPLETE AUTO&AUTO DIFRNTL WBC COUNT CBC AND DIFFER ENTIAL Routine 03/02/2020 1:00 AM EDT 03/02/2020 05:00:00 AM [facility] FERRITIN FERRITIN LEVEL Routine 03/02/2020 1:00 AM EDT 03/02/2020 05:00:00 AM [facility] BASIC METABOLIC PANEL CALCIUM TOTAL BASIC METABOLIC PANEL Routi ne 03/02/2020 1:00 AM EDT 03/02/2020 05:00:00 AM EDT [facility] GLUCOSE QUANTITATIVE BLOOD XCPT REAGENT STRIP POCT GLUCOSE, DOC KED Routine 03/01/2020 9:37 PM EDT 03/02/2020 01:37:00 AM [facility] GLUCOSE QUANTITATIVE BLOOD XCPT REAGENT STRIP POCT GLUCOSE, DOC KED Routine 03/01/2020 5:20 PM EDT 03/01/2020 09:20:00 PM [facility] PHOSPHORUS INORGANIC PHOSPHORUS LEVEL Routine 03/01/2020 3:08 PM E DT 03/01/2020 07:08:00 PM [facility] MAGNESIUM MAGNESIUM LEVEL Routine 03/01/2020 3:08 PM EDT 03/01/2020 07:08:00 PM [facility] COMPREHENSIVE METABOLIC PANEL COMPREHENSIVE METABOLIC PANEL Rou indra 03/01/2020 3:08 PM EDT 03/01/2020 07:08:00 PM EDT [facility] GLUCOSE QUANTITATIVE BLOOD XCPT REAGENT STRIP POCT GLUCOSE, DOC KED Routine 03/01/2020 12:15 PM EDT 03/01/2020 04:15:00 PM [facility] XR CHEST FRONTAL ONLY [id number] XR CHEST FRONTAL ONLY [id number] Routine 03/01/2020 12:05 PM EDT 03/01/2020 04:05:00 PM EDT [facility] DRUG SCREEN QUALITATIVE TACROLIMUS TACROLIMUS TROUGH Routine 03/01/2020 8:51 AM EDT 03/01/2020 12:51:00 PM EDT [facility] GLUCOSE QUANTITATIVE BLOOD XCPT REAGENT STRIP POCT GLUCOSE, DOC KED Routine 03/01/2020 8:25 AM EDT 03/01/2020 12:25:00 PM [facility] BLOOD COUNT COMPLETE AUTO&AUTO DIFRNTL WBC COUNT CBC AND DIFFER ENTIAL Routine 03/01/2020 4:30 AM EDT 03/01/2020 08:30:00 AM [facility] PHOSPHORUS INORGANIC PHOSPHORUS LEVEL Routine 03/01/2020 4:30 AM E DT 03/01/2020 08:30:00 AM [facility] MAGNESIUM MAGNESIUM LEVEL Routine 03/01/2020 4:30 AM EDT 03/01/2020 08:30:00 AM [facility] BASIC METABOLIC PANEL CALCIUM TOTAL BASIC METABOLIC PANEL Routi ne 03/01/2020 4:30 AM EDT 03/01/2020 08:30:00 AM EDT [facility] BLOOD COUNT COMPLETE AUTO&AUTO DIFRNTL WBC COUNT CBC AND DIFFER ENTIAL Routine 01/07/2020 1:15 AM EDT 01/07/2020 05:15:00 AM [facility] BASIC METABOLIC PANEL CALCIUM TOTAL BASIC METABOLIC PANEL Routi ne 01/07/2020 1:15 AM EDT 01/07/2020 05:15:00 AM EDT [facility] BLOOD COUNT COMPLETE AUTOMATED CBC AND DIFFERENTIAL Routine 01/06/2020 1:13 AM EDT 01/06/2020 05:13:00 AM EDT [facility] BASIC METABOLIC PANEL CALCIUM TOTAL BASIC METABOLIC PANEL Routi ne 01/06/2020 1:13 AM EDT 01/06/2020 05:13:00 AM EDT [facility] BLOOD COUNT COMPLETE AUTOMATED CBC AND DIFFERENTIAL Routine 01/05/2020 3:37 AM EDT 01/05/2020 07:37:00 AM EDT [facility] BASIC METABOLIC PANEL CALCIUM TOTAL BASIC METABOLIC PANEL Routi ne 01/05/2020 3:37 AM EDT 01/05/2020 07:37:00 AM EDT [facility] URNLS DIP STICK/TABLET REAGENT AUTO MICROSCOPY URINAL YSIS WITH REFLEX URINE CULTURE Routine 01/04/2020 6:32 PM EDT 01/04/2020 10:32 :00 PM EDT [facility] DRUG SCREEN QUALITATIVE TACROLIMUS TACROLIMUS TROUGH Routine 01/04/2020 5:33 PM EDT 01/04/2020 09:33:00 PM EDT [facility] BLOOD COUNT COMPLETE AUTO&AUTO DIFRNTL WBC COUNT CBC AND DIFFER ENTIAL Routine 01/04/2020 5:33 PM EDT 01/04/2020 09:33:00 PM EDT [facility] PHOSPHORUS INORGANIC PHOSPHORUS LEVEL Routine 01/04/2020 5:33 PM E DT 01/04/2020 09:33:00 PM EDT [facility] MAGNESIUM MAGNESIUM LEVEL Routine 01/04/2020 5:33 PM EDT 01/04/2020 09:33:00 PM EDT [facility] COMPREHENSIVE METABOLIC PANEL COMPREHENSIVE METABOLIC PANEL Rou indra 01/04/2020 5:33 PM EDT 01/04/2020 09:33:00 PM EDT [facility] THER RAD SIMULAJ-AIDED FIELD SETTING COMPLEX CT SIMUL ATION AT RAD ONC (IN OFFICE) Routine 01/04/2020 1:19 PM EDT Malignant melanoma of eyelid including canthus, unspecified laterality 01/04/2020 05:19:00 PM EDT 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, unspecified laterality [facility] 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, unspecified laterality Fluorodeoxyglucose f-18 fdg, diagnostic, per study dose, up to 45 millicuries 12/21/2019 12:00:00 AM EDT [facility] PET IMAGING CT ATTENUATION SKULL BASE MID-THIGH PET IMAGE W/ CT SKULL-THIGH 12/21/2019 12:00:00 AM EDT [facility] RADIOLOGY REPORT RADIOLOGY REPORT 12/14/2019 3:02 PM EST 12/14/2019 08:02:[address] [facility] BIOPSY INTRANASAL 12/14/2019 12:00:00 AM EST [facility] ([facility], ) Endoscopy Nasal Diagnostic 10/15/2019 12:00:00 AM EST [facility] ([facility], ) Results ID Date Data Source [id number] 11/07/2020 02:11:11 AM EST [facility] Name Value Range Interpretation Code Description Data Fide rce(s) Supporting Document(s) Progress Note [facility] [id number] lbm [file] AgICAgICAgICAgICAgICAgICAgICAgICAgICAgICAgICAgICAgICAgICAgICAgICAgICAgICANCiAgIC AgICAgICAgICAgICAgICAgICAgICAgICAgICAgICAg ICAgICAgICAgICAgICAgICAgICAgICAgICAgICAgICAgICAgICAgICAgICAgICAgICAgICAgICAgICAg ICAgICANCiAgICAgICAgICAgICAgICAgICAgICAgICAgICAgICAgICAgICAgICAgICAgICAgICAgICAg ICAgICAgICAgICAgICAgICAgICAgICAgICAgICAgIC AgICAgICAgICAgICAgICANCiAgICAgICAgICAgICAgICAgICAgICAgICAgICAgICAgICAgICAgICAgIC AgICAgICAgICAgICAgICAgICAgICAgICAgICAgICAgICAgICAgICAgICAgICAgICAgICAgICAgICANCi AgICAgICAgICAgICAgICAgICAgICAgICAgICAgICAg ICAgICAgICAgICAgICAgICAgICAgICAgICAgICAgICAgICAgICAgICAgICAgICAgICAgICAgICAgICAg ICAgICAgICANCiAgICAgICAgICAgICAgICAgICAgICAgICAgICAgICAgICAgICAgICAgICAgICAgICAg ICAgICAgICAgICAgICAgICAgICAgICAgICAgICAgIC AgICAgICAgICAgICAgICAgICANCiAgICAgICAgICAgICAgICAgICAgICAgICAgICAgICAgICAgICAgIC AgICAgICAgICAgICAgICAgICAgICAgICAgICAgICAgICAgICAgICAgICAgICAgICAgICAgICAgICAgIC ANCiAgICAgICAgICAgICAgICAgICAgICAgICAgICAg ICAgICAgICAgICAgICAgICAgICAgICAgICAgICAgICAgICAgICAgICAgICAgICAgICAgICAgICAgICAg ICAgICAgICAgICANCiAgICAgICAgICAgICAgICAgICAgICAgICAgICAgICAgICAgICAgICAgICAgICAg ICAgICAgICAgICAgICAgICAgICAgICAgICAgICAgIC AgICAgICAgICAgICAgICAgICAgICANCiAgICAgICAgICAgICAgICAgICAgICAgICAgICAgICAgICAgIC AgICAgICAgICAgICAgICAgICAgICAgICAgICAgICAgICAgICAgICAgICAgICAgICAgICAgICAgICAgIC AgICANCjw/bQXlN9hreXGdzfF8M1alZg6CXt1THM7i n6KfZPHlLCrgetVyPkhNUiZtDEEeVdoIYtw9DFvxCW5SfGGfQ2BlG7MsDJgyQX4DOOOuEXGrpAJyJRZz SDSoQoU9ZISkIUjkQT6RjKFhJDojHSWzGMCrHE0ZBRItW528sfAoZV0CUq0MNzYzXX9cdw4AFBgwSUTa AvdIRqf6PPmsRT7BcSNpeLNwVZFpFNZZTmTjS0mts1 LjNaXhARDOTNzsSV0To6IaxDAiLQm+Ir9OHH0gt4AkEVqlQBJvOY0qkj2CFYiBIfKjB2VtsDiiTTMrr0 aqQHNqHG7zpERcWDE7SMEzrPFXQP2iUB5uwbumMAXxKJYcZF1nDU3iFKPjJBY6MfCvMAKQCF3ZLGSaAV CgvAKhNHYsPWDCKY1RJJevRCG5PPHdiqQovZPdCZdx WT5JSDPwzsZzDQzdTDKVBHs+Rk8SVZ5qy1LbLFthQOVcGS5aqs3GWXiRNmQaA3N7oIDpF3Y9HDrzEi2V OGLnXZVsFZmsPNITLPefVF6GCY1mcpY3BM0UdBJnVAWsYHThfRGnRJf4X79pnXXnUYsdLH3SHEF+Greardo+ Cz6QAITsCLAzVPRxIcWqVVSTKiQnO6LqQ8QSc1YcR6 EcNA31cWtptaFyFMcuCH2CWV1lCKCzZEBSDQ9MiPKexS8ysbOcNEYwONMTElGqK40zkSJaHQFhAWB3XS QqYl7MTLXrT0KtcbSgzEuwjfZmGKBuPWZKPA5TFVybxpHzhJOseVvtLT15bCkmWD2YSb1REuLhPC7yud 6BkSSbGi7NXFCfLq9KPQClKRUtVCMbDSJ2YDKyPrYe IFttUQXaGSNwXJF8GFCtHBUpDW1DDjGwYLVhXTsuDJEzUBXsSCHtof6QOLTeFKYuJYQbATFdPLXwVTFb EKucWKMqBAYfPKZ7XBVsTLCgRQ4KLxUlJLWaMSIvWbibKUDgTPEock8DVMOfQHJcTvMgJqZlQAUoYRSe JZgeUQVyUMD3UXoyPSYmETFkVQ3HElAzNNEpSUOdIM tsJMUkHOEolb4JUPXpIANeSJC4NkQzJVEvLCOeBKycGYUsRGZ8CYU4QBBaDORcPA2WJtNhKWLwIMU3Ay thPYZrJUFhss3UVTVtDYWuUArpTJFuNVZrUXWkQTriNFEwZPJ0NpN9KENrXNYjHB5MJjUcDPCmVXz7Cb rlBLUhKXHkyr1WMHVaSBPjWyo2GLJkXVSiBRGfHCir AHCjZAR2OFA1MGYaOQAeIE0UHlYwTJIqAWbgWnZlZAXzJBFujo0CFZDnSXCuNZI5CGZyLPPyZAOmQRhs JOMiHJPlGIUzEKIsQUPtKC0YEnZgWNGtWpOvKFOoCKFqRWChll7KIZFuLKTcAVVtNTJcCNZpRALkHHf0 dmEuqNUhLTe4HY8ZC9JdkcJrTmQCKd6Fa921YSOpTC HaNu3OK6jmYl1dKJTrINJQWa7LIWr4DiqkWZF3Aaj6DJYyTNWjDyLvVZT3AkNeIlh1XxYrKHY+IDxiOW YiNhksPZF2ZkBkLeDqDwB9JKjcDNZrLOC3PaV8ZK8fOWSOHg5+XMlooGHhzTpgHPCWTqNwAXy8RBxbQJ VPRg0K ID Date Data Source [id number] 11/07/2020 02:11:06 AM EST [facility] Name Value Range Interpretation Code Description Data Fide rce(s) Supporting Document(s) Progress Note [facility] XAVNAj3jWrWMMaFt75/XZOcsKZRlk4ZfBOzzMQo8EHptGUBaG0UxCDL3oM4iCJY2WTaPPaDsZuTtJIR6 lbm [file] LOGISTICS OFFICER+Ul3RYAVuRNe0I6C9QAZwSSd7T0EXM8FRABGiMXatVDceDADeBAc9X3J1TPIfQ7AYX3Xehofsof4+ PE0QW08TSRMwSSo8J1E7lRKeE7Q4xKeZqGG0UF7DIC5WhHx0eLHvkK9+YT6DV4ZGLfJzGQx3H2E2mMDf J3N3lCaWqFW5LY2WXG5PuHPtJRNcqqObYt7wX2UOMR sRLcWXVDE2BK2BfSJvTJ4IoNLGW2DruRYrYk6rTYfssOVwxJ1eXh3lYBqgBL7EHuQSRHkNVKB4JT0XtY EjZH8WvZGPE9MgyUJwRk9xIIvosHCnax3+OR4HRUAuXw9FJp4+SLbjflJvPdjQIpZpJHJbj7OtWNj5WI 5YTD1dwGqwBXQ5Rd5GsNV6cJPnX1nQGZ1KxLDtH21i fWMcZNWaOj9KPwI9rpDnmO5JOD44tXJnu9R9EFEhI1bxELjlk49bTYxzOQkPJX4fEVVLACcfZDkbPXC3 XpIcxakcRAPbAj8MAsTnGBp7oF9teFF5HUX3SypdfGNrACbbWyOlQdKrNkK1iIppffm1FAqvOR2fPAvu czptZXRhLyc+MUiiDVEuTTSmVypCOYXyuQ6kejB7mv CgWPchoLXlFv8xw7q6AwwpFt6kKd7oIMx0IxHzDgBrLQLsEf0lvE88CXfgtqUnFi2CYwFgYJF0L9NbBd pSREY+UZgcBYkkpQb2dBLjOKUvUk5RPHBlLMYqLOIrDHFnMRWiBTJfEXBcBDGbTALqZSCeOTUnFHXuSG AgICAgICAgICAgICAgICAgICAgICAgICAgICAgICAg DNCnYOOvVQVtRUDgWBYiUXIoOZBoVRNwAJRwPWOfFF1WLESiZDWmUDMmAGLoLHRfPPTvDYHjHVOcRPSw ICAgICAgICAgICAgICAgICAgICAgICAgICAgICAgICAgICAgICAgICAgICAgICAgICAgICAgICAgICAg EIYkJPOgDODtSWEsHX3IFFTxFLJuPLPiDCAaFWEnPC AgICAgICAgICAgICAgICAgICAgICAgICAgICAgICAgICAgICAgICAgICAgICAgICAgICAgICAgICAgIC BwITYwILAzIQOqPMIrKBGzCZSaYEObNU8YWIFoLYBwVFFwCEPmHPLfLKCoITNvZPUtETAjZHOtTNKgYD AgICAgICAgICAgICAgICAgICAgICAgICAgICAgICAg GNWaSKNbMXLlZLXwILUmAYKfMHTbXWOaDREePWZqHRHcVW0YMUOqYZTpECLeKUNdIIHyEEXqSAXaQWPt ICAgICAgICAgICAgICAgICAgICAgICAgICAgICAgICAgICAgICAgICAgICAgICAgICAgICAgICAgICAg PRVbCAGyUDRfRDDiMGNzRT5BWMErFHIsWZSdZWPiCV AgICAgICAgICAgICAgICAgICAgICAgICAgICAgICAgICAgICAgICAgICAgICAgICAgICAgICAgICAgIC HqMCJtHCFzZEYjNFSvWONpXTDjYKXjBMDlXM5DBLLdXXEpWLMtDTEfRSJdDLPyGDLiQZZjULIwIRTvBV AgICAgICAgICAgICAgICAgICAgICAgICAgICAgICAg NAMfRHNiQKPrZYAuQGUaQAHqOIVkRIPjLAOqCQEjBAViEIDeCP2XEZHxUJCmDERwMIVkAIOuJTJhCCVb ICAgICAgICAgICAgICAgICAgICAgICAgICAgICAgICAgICAgICAgICAgICAgICAgICAgICAgICAgICAg BRWxDRZfSJAsPRQpTZNuRXLtDV0BHIWqWZRbAABqUT AgICAgICAgICAgICAgICAgICAgICAgICAgICAgICAgICAgICAgICAgICAgICAgICAgICAgICAgICAgIC SmBUMgOPTbENGvHITjXPJaRRCdLYGgCLEcCQPgFS2HAGUhNPZhSNTqORNoLFKmJKYiUCMgCGGwIAVkFE AgICAgICAgICAgICAgICAgICAgICAgICAgICAgICAg SDQmNJUkSHUdJWIdCSGbWKNiEFNtXMMrNJNjVTKyYEMmQHDuFJZkZZ3IEY13aKYwc6O9BNUnTQ3qrjg/ Bd2HTFlqkcQfuIRzYT6NEmLcFS7naw0HGeYlWS7dds0XFFbPQaJgO5F0aDXrEVEhVUGBOgKhE50vYRnp Hy56JWqqVOLePpXrFGo9Ai2ZYhRcG1dpGUTbDnV6CN FoAzH3KGHhBeI6PEUpHbVlILEnYIOqBJHgEKXAFR2HNeAsT2GmjP83OZMBLy6+DQplbmRvYmoNCjMzID Epo8AzTPl0WA8AADUgZyhkr4CmDtLfEVXIDRruGB2BUZD2IBU7VBWgMa5CWWBtV345nnMwWO9UXr0WYq LaHF3ttz6SMeAuLCWaLppWTep9ZFjjUP6PoISgHZpR ou3qqiAkxnCNq7UfvoQiyCIUVO9cfPZdQkENOTbdu2S4hgvaWF7ATTU8YMIyGCPeFnQyIPZmVVheBELS FOkGCaFrT5Aog4EiYhR4PRZiMlGzJAbvVQMrNgD8ML21uCjjWC0KGRKrIKTzFJ40GXZxVNZeAw8FAa2X UfIxWQ6xnq4IFuBpLGYwWncWOoe8TLkvSM6NuADsR7 GqhLLzi3tVHdWzX3JHZYNkKERyRr5KNIZqYiNvPCGsZRxwEK6eRKQeRAHBnPdgorF1UD2JIE8ezzGtHF 9GObTeUj3eZt5HZnKlF6PnZ2AhMRZuFXBRNIhwCU1MTMwkPM7nJA1Iw6REmAEnvO8rfw8YVPAyYRWtVs rksn8VGnhgJ1J5sTjbXGZlAsIhHVNRQColXE3FGYZb QHP4NDYsQoQyVXCYHvTzA67pNK5XU9Wbb51hIaL4TFPqDgLbNBqxUH59hNaeyhVfiUFaqYrvCT8XXh0+ HGeexvAwStmSIaiyWOBRVdSbEdHQQyJmNSEiBZIaDNHjFiU1WdKpCy0XKSCkGLDwOREjKdSlTZGcOCSj YAaaPAGlAUT5IpO6DMMwHBVrHF9YAsJeHYKdGeb8FB xxUFQvOVKfnn5TWCXiEKAgRDC0CkBiUCRyKCUpJMwkVCHjPLA9ITU0TAJfPFYyLX8HHrNlCYFbLUKgDi OhSXSyTMWrmo9HYCEsOHTqPHC1OeSoYVJgIOFoQEsuKAJyDJY9Lzr8GGLhUFOtUY6DDoYePRGjTTH3Lk TuUSWhGBNwtv1TLTBtDGPaUdIrKJIsUPNjGWPhMWoe CHEnFZP0FPwaOKHqUQKhOZ2TOgArCYEsDDe2KStqIHHtTDBcrk7LKVNxYEAlNEEmETCuFMKzDGQlYKby JVTqDYR6FSDhZJKkXFXeZV4TLfIrTNHfXUf7NNWkSSGgKHEvop2TXACqBKXlHQO4UFUnFTJeSMRdGLfl ANMpMPT3LLjgRVUvXOQzGF2RJxJxBSMyNdG3RmRxXI MxZXMaxx6XKXZnSUOhYCInPxWmXPDiHYZqGWoqLZRbHWQyLgRqJNHnBSLgTF6OKjZnVRWpOqC3KWTpNL VoGNSkkm1ZSKGcBRShNxz2RYQvHDYtPNYmFJegNBWpTOVgMXx6BXPbIIFwOU9PBfJtEQPxRaR0PkHrCX IaTXLfxr1JTLLbUTHiRoI0WSSrTHRaOYYxWAbrKPDs DER9YKH0WUExZAOlZN9HUyKiOGLdHcV3VXMbATUiTVOmdy2XMYSvNLQjVCr4GURvABJlPPRzHVyoUAZb QEY2YRQ4OCHdCLYhSR5SJnUtRLKtQgSbMMExGPWiISLrer6VOGXvUVXrCxM3RkIhSSHkZMPpZApkWVEt UWL6IcT3LIOhWQLmAU2TPgIwYHLdUdcuLGCqSRNxVZ Adjt6OGASkJFEuLOU9ZAGzLXXfYJTfKMljPDMfIAI2ZpY2MQNhSALjWS7TAcXnJJdsISZWVwp8HMzuV2 m3SBCpGj3NM4Gbc2YtHmHqGMFXFGstCD7apbDvFJGyGo4SY0uGEqftXJL9X6U8YfN2SNXjPfWgTvl7Gp LeOTZvQOluEYkdWv7lWXRsTUJtXKWcWFlqPxT9NKZw VWi5OrCpCyCcWmE5IDVtDpGeMT4OCa2GGpA1EGH6qTNgVa3JTej1CIGCBhScOV5HQFu= ID Date Data Source [id number] 10/08/2020 10:05:35 AM EST [facility] Name Value Range Interpretation Code Description Data Fide rce(s) Supporting Document(s) Progress Note [facility] TSOXQf9xNxMQOkRt16/PXRcrNVJay7JqZZxtVOy8GFsnQIVyR1AbDZG5aS0cJUW1RPdZGaIfWpRyIwAq lbm [file] AgICAgICAgICAgICAgICAgICAgICAgICAgICAgICAg HZIiZWYnGTFsNJHsGWQgLAJsTBOmTMYiOZTsMDOoSWTjHSItFRWfDMZyJHIoIMBrJAPvKL0MNYZjDMFt ICAgICAgICAgICAgICAgICAgICAgICAgICAgICAgICAgICAgICAgICAgICAgICAgICAgICAgICAgICAg ICAgICAgICAgICAgICAgICAgICAgICAgICAgICAgIC NyDW3UKGGhPNLqRBUwFYWpOJFwMLNsNLEkIWXaXYPyIAZlTYLqJEXtEQJdEXWmUYNlVZHmZIBvJSRhWS HsPKXhIJRwXCGrNVTxCBEtMPWeDEPlZGCyPXWaWJCtGEQjDGSmMFWlXNZkUG6GDAApPCTjMRYwTLCyUA AgICAgICAgICAgICAgICAgICAgICAgICAgICAgICAg HAWmMGXcUYVcQHYoWGLgBMOhAZHrZNNuUQUfCSYhDECdXHKgAJLsMLTrEYUkHNRnEMCdHFFoXM6PZPRc ICAgICAgICAgICAgICAgICAgICAgICAgICAgICAgICAgICAgICAgICAgICAgICAgICAgICAgICAgICAg ICAgICAgICAgICAgICAgICAgICAgICAgICAgICAgIC BnWJAvDO0JWRYrGDEoNZBdPJFxFHJqVIAeZDRdMMHpGVWjLRWsBDTqKOQpKXLgMZDwXYZoERLtJEHoFR NsTLXyIBQpHRYvOJPkGXIgVLYeVTDrFRLrDFMlXUPiPPQvDXFtPBUcZICwTWKfMJ9FFFZaFBLoRVOzMK AgICAgICAgICAgICAgICAgICAgICAgICAgICAgICAg NGGuOOKyDNXlQZOrSQQrZKBlLUMhZCLiRUMoJUTvOKDkEOYaVZEzFSIkPTXlUBCjJUWhSEWdOHDmYL7R ICAgICAgICAgICAgICAgICAgICAgICAgICAgICAgICAgICAgICAgICAgICAgICAgICAgICAgICAgICAg ICAgICAgICAgICAgICAgICAgICAgICAgICAgICAgIC ZuBDYaUBJlTD4RSCTlEZMqTNPzLRVlRLZkDSTmBSPySJTjUISaGJNnFTJiBOCuOLZrJZVxQOUhVKNsEW AzPIMcFWGyFPAnCZHrBKOvOWRyVKNuSUZfKSFrUETnTQXpVDOpGVTaZSLuNBLpDDByKY4DHZTqYTUwUE AgICAgICAgICAgICAgICAgICAgICAgICAgICAgICAg ICAgICAgICAgICAgICAgICAgICAgICAgICAgICAgICAgICAgICAgICAgICAgICAgICAgICAgICAgICAg DF0PYM52oOMnj5X7WUCsYD7wwnn/Le1XVOjsqjHidYInEH4HCmNkLQ9wmf2ZFrGwOD8nez7VVCuZShCj T3L5jTJmSURsGVKYIrIwA00nQKlcQm26EIvzREAoZc CcNAo1Mu8GNwHrI0fpPYSpEoZ8QHFpYxItBKoeHM9As1NtoXDpFGl+Xw4MKP0fz9VgPSkbHSByYX2gfd 2ZPQhYVdItH2KpseZ6UBUcRAOyUw8RIJUgSLZmiWGuEYNjJTTWUzSuN2TytZ70ODRUXs2+DQplbmRvYm pSZoQtGSYqm0ArBSx4JC8FXFRsUAi1wRViIHLkQ2Ja v7HsVq47YJNuKnjkP9YqGINwpnoweXfiRIHRJUJavVMtLq9mPf9zHSWgXHD6FzPaACBCEK5EKDSkIZHg vQRyFGBxUGCBVI2CVUqdZEG8ZJIujoJuoKLlNLpnMR5XZONjovZyDOvsAFZLGZa+Ly2MTM4uc4BjSXsb HLZsJM8yix7MGPdMVeFgV4A2hSBkX5E9VYtjXr2LRV HkGEGsKKruLHKIPOeiNQ1JBL3tldR4IR1IhSMvDMBsHLJhkLXgVFf2A14dqZHmJBjlAB3RINA+Gerardo+Pg 8IIFHcYQAqFMKoIcOrSQCYFhYdD7UgY0IZc9BqA8GtWA21rCltgjWhVJrrBF8WKK8aOXZaVTMTOP6AaN NreD2cklLyUKSgCRJQMzNgK45vuUUaJMHwBOT7KELu Jd6TMORoV2DaehCjxCbanpRzBHRlUUWGQL6EPQwmceNpzSBbwCwxVG70fVpmTY1SVv2TEgCsZD5pdk5G aPUgDo4AYUBjTo0KOVTaMVYvDEQmOPF7DVHlYkSuCTjiZNVpAUArPLU9UULdDOYsVN7EJtBlWOAaMSS3 MkFtJYOcFNPxxz2XJIDmAUXgAAB7LLZxDDZpBIMuQH ptOPTiMNNmBUG5ULTaUZAySV5JSnNuRIHzHXH8NIOrCJPvEVErxw7BMKGxFNHgVSivLJLhOTBfHTPtBI xtEZFkJAMkRBL1HYAgHXKnXO3VAxSxYOYoYORbBPDoCWCjSOPnfi0PVLFbEWMcPgYeHVJsCPNyGVEdCA tsPATlVMO0OMpqXIIpKZDuLS0PSwJnGYYmKNOjZIJz XRUeEQYshg7BJVCpATZmXPR8MsOcKOVeFGTcPYxzPUEqNTA5FWQ4ZFQbGWTqVL3LHnElOPNxHMKjOHHc LQPlLOAmpy5BCQRvCVPeHeU2NwYuLXBpIQGyLWvqQMLkNFB2XxCkWLJkKVQdSY5KYuTmDBBlKPS1EMrh WWFlQQQexa7XKLPeTLRdVfC7EMMvGLOtRGPqREbkJR PcLMX2Neg5VJRnUEQcYP4PVsXfOLDnSCn0SDsjKUFtWPPfmo8BAOAsCICkQYbkDLLxITAtLODqJHh7fe AwaYCoUQh2FO2AR2GdvdLeMwYWSd4An545BKSfDALyJt2HR8ubDw7iRGUzDIAQNm6OTHd7MDwvVEUxSk KcTQMzHUEqQXV5Jxg6YRM3LHRqOgAfFkj+JHf9OACc LvVkOIE8IoCtBtO4DJKpZZfuJqx7UBDfTvR6Np0rYWYQEe7+GErneJPypJgnJTOEWuF1WHN4XLzuCUDD Rg0K ID Date Data Source [id number] 10/08/2020 10:05:30 AM EST [facility] Name Value Range Interpretation Code Description Data Fide rce(s) Supporting Document(s) Progress Note [facility] CRFNYy7zRoUFKqAg95/GDXudDGWby8HxWDpiTHl8XLhdFCLyV2JkOOU6wD5rDDR8TGbOYuTqUtKgDsFx lbm [file] 4fr80nOQQyx9/BrMjCMAxW/7Z/FlUcHJwFf/yOkG4hpsaR3f+yl9Z/2gy6mh06jr1pO54+u/Po+cone cleaner+8G XtRDm6o5ab+wpR0mnBlo5b+fHJ+yc43HK6W/dm/3r5l52k7ipHo+++Cx4/dWV0a4KcPZfast+TaLPzx3 fLpmHbVEDH8H7vSr2NIM9N39OgBubxjiSt28Ex5tTQ 0+OZGyODWRMZ5pbltuYAh96DaOfVV/XPzK2OlOx8hWB4sesmEy01zxCP0qoW/QqlKhfk1z3bZREtornY 8z0d+LkeyAUqpnXDqjBjnxaL8fvltp4/Pvzj2NFwGa1iWOOm2U4sSbwVrLIgNKcKvfdzNJpi7lOXMEau Ma2mCzmDJwXYGaXryH2iXFpHOQYgtP9EVoRgFUmBQR wo0oPr0wnSambFq3ZZqDNsHa/SDiWdVHf2uKZtFgtBmmzShmMONBVWhA5JWcOL8h/Jy5FOgf3pbmDbYe sRMkupTdJzORLzFQs3PwnLvQRoLFnZkYCEBy9N5E5OMVgLDQ7jtWK20QavlLWH0JLYNtHQ2VZqOM4aC6 GdxDJHvEOzLyYcvs6Kk8ljnHXm03QKuhlYZ991Tlqm qdgvWqqFNvykilxEE46ZLkOwsghpAoW5ComxnJpbsdiaRgesfI8kJ91Jlq03AL32QD/oHRv7rqxxZXEX [file] 4xDTWARo7+JDzehMQkqTrmQLBHXzU8MaSxWFpsEAHCGv6M ID Date Data Source [id number] 09/08/2020 09:23:28 AM EST [facility] Name Value Range Interpretation Code Description Data Fide rce(s) Supporting Document(s) Progress Note [facility] WRWNSn5dVuNSBoSq67/FVZpmKFPox9JpEFbkHKc5QQafZWNfC0YeMVB2mR7pWHZ8RDnSMqQbOsFcVIEd lbm [file] DQo= ID Date Data Source [id number] 09/08/2020 09:23:18 AM EST [facility] Name Value Range Interpretation Code Description Data Fide rce(s) Supporting Document(s) Progress Note [facility] ENVMWr7sXmEFOaKf42/GLIgmQMDiz9DvXEbxUJg5MKkiMRLjX2CzUIG1tW1cIXW0JChQXqUjTuVvNQWb lbm [file] OnAHZsVPAqVTQsJFLfEPDgMyWxIN3TFy3EQhA4MTL5nZEdNv5AYuKiEBeYQnYmTX3ONZr= ID Date Data Source [id number] 08/19/2020 02:37:01 AM EST [facility] Name Value Range Interpretation Code Description Data Fide rce(s) Supporting Document(s) Progress Note [facility] QDKFDq2lQxBDOsTf00/XMTgcEKIri4YmZTcbPAg4SRiyPBOmR8ZjNRT7oQ0cQRI6MXgRSnCjJlWxTETq lbm [file] Zocuej9Hw0sv5Qt4KvGHsEI7lttHeWLrLWXGmn+zn2l2RmXyKIXu/I3yn6e/maoq/EZqYsC0tWdx++Glaze Carrier [file] VXVRUz0P ID Date Data Source [id number] 08/19/2020 02:36:56 AM [facility] Name Value Range Interpretation Code Description Data Fide rce(s) Supporting Document(s) Progress Note [facility] AZPPFy2cYqSPQzJo54/CKPdrNEBee5JhSTtxNWp2JMftCEViL4HfBXK2aF3mILF3FHkAJiXgAgYjSUDl lbm EtKvnPPvWbDCUjXvmQGrLkOIqoFenvnLOfGK6QfKH7LTDrY54vDEHoGZZuX7UiJHP5TPL+Sg9CIYRicB LbTY3OLfbC4O7uzeoARz1bwX/OveDWP4sobr+QUWtg7KlDRZUbeOZK7bByrGAkZAjVoH00w+cu0zD9HE 34/GAxc66sa7pqwFWx2OF32sB4x9z832uqzkdi13z4 /4vqrB8Ke8th9m+JeQdqsDkl4fk1dVgSdQkE5i+UP0P/8u3zI7pgH32vecOIA+ODt6YissoHeoWugv04 +Tosha/9l6UWjdgW4D5vD2uwp1hjpTm5bV0Nr9fsMj1wfxamHD7ESw0gx+sG0OUD+6eOih7Wp1KLq5WPi1 pQV5ek06yw0HN58Qy4Iar41Mz48UXciNND2L3Rt7T4 [file] L2MeBDKrReYzRC3OYm1TSzV3TFR1hSLqAq8BYSS9VrBVJqToIR2OWVq= ID Date Data Source [id number] 08/12/2020 01:38:00 PM EST [facility] ([facility], ) Name Value Range Interpretation Code Description Data Fide rce(s) Supporting Document(s) Surgical pathology study Laboratory test result [facility] ([facility]) FINAL DIAGNOSIS Left brachial artery pseudoaneurysm, excision: A small central lumen, surrounded by organizing blood clot is noted. See gross description. 08/14/[id number] CLINICAL DIAGNOSIS End-stage renal disease, pain left arm at non-functional fistula 08/13/20201432 GROSS DIAGNOSIS Received in formalin labeled "left brachial artery pseudoaneurysm" is a spherical portion of firm to hard soft tissue, approximately 4 cm in diameter. Sectioning reveals a small 3-4 mm lumen, as well as surrounding hemorrhagic and organizing clot. Lunchroom Operator sections are submitted in three blocks. - 08/13/20201432 Signed Jair Kapadia MD 08/14/2020 1450 ID Date Data Source [id number] 08/12/2020 10:36:00 AM EST [facility] ([facility], ) Name Value Range Interpretation Code Description Data Fide rce(s) Supporting Document(s) Potassium [Moles/volume] in Serum or Plasma 3.9 meq/L 3.5- 5.1 Normal (applies to non-numeric results) [facility] ([facility], ) ID Date Data Source [id number] 08/07/2020 11:00:00 AM EDT [facility] Name Value Range Interpretation Code Description Data Fide rce(s) Supporting Document(s) SARS coronavirus 2 RNA [facility] This lab was ordered by [facility] and reported by [facility]. ID Date Data Source [id number] 07/22/2020 02:01:31 AM EDT [facility] Name Value Range Interpretation Code Description Data Fide rce(s) Supporting Document(s) Progress Note [facility] [id number] [file] ID Date Data Source [id number] 07/09/2020 07:40:00 AM EDT [facility] DATE OF EXAMINATION: 07/08/2020 8:47 EDT ABD/PEL WITH IV CONTRAST HISTORY: End- stage renal failure. Abdominal pain. TECHNIQUE: This CT exam was performed using the following dose reduction techniques:automated exposure control, adjustment of mA and/or kV according to thepatient's size, and use of iterative reconstruction technique. Standard contiguous axial spiral imaging was obtained from the dome of thediaphragms through the symphysis pubis without oral contrast and withintravenous contrast administration and with coronal reformatting. FINDINGS: Lower thorax: Unremarkable ABDOMEN: Liver: UnremarkableGallbladder and bile ducts: 0.6 cm stone is seen in the gallbladder neckPancreas: UnremarkableSpleen: UnremarkableAdrenals: UnremarkableKidneys and ureters: Severe chronic renal parenchymal atrophy. Few renal cystsare seen bilaterally largest in the upper pole of right kidney measuring 2.5 x 2cm and in the upper pole of left kidney measuring 2 cm. Also seen are renalstones bilaterally with a cluster in the inferior pole of the right kidney withthe largest component measuring 1.4 x 1 cm and a 0.6 cm stone in the inferiorpole of left kidney. There is a right iliac fossa renal transplant with a fewsmall cysts all measuring less than 1 cm as well as nonobstructive papillarystones largest in the MID pole measuring 0.3 cmStomach and bowel: UnremarkableAppendix: Normal PELVIS: Bladder: Nondistended and unopacified therefore difficult to evaluateReproductive: Unremarkable No free fluid or free air IMPRESSION: Severe chronic renal atrophy with cysts and stones as described above. Right iliac fossa renal transplant with a few nonobstructive papillary stonesand subcentimeter cysts. There is no hydronephrosis. Bladder could not be evaluated due to lack of opacification and poor distention. Small stone in the gallbladder neck without gallbladder wall thickening orbiliary dilatation. There are multiple small hypodense lesions throughout the axial skeletal system.Blastic metastasis should be considered Electronically signed in PS360 by: Dean Worley M.D. 07/08/2020 9:39 EDT Name Value Range Interpretation Code Description [facility] Document(s) ID Date Data Source [id number] 07/04/2020 03:16:00 PM EDT [facility] Name Value Range Interpretation Code Description Data [facility] rce(s) Supporting Document(s) SODIUM 139 MEQ/L 135-145 [facility] POTASSIUM 4.7 MEQ/L 3.5-5.3 [facility] CHLORIDE 100 MEQ/L 94-110 [facility] CARBON DIOXIDE 31 MEQ/L 22-33 [facility] ANION GAP 13 5-16 N [facility] BLOOD UREA NITRO 13 MG/DL 7-25 [facility] CREATININE 2.7 MG/DL 0.6-1.4 [facility] GFR 23.8 ML/MIN [facility] Stage G4 - Severely decreased kidney fu nction The GFR is an estimate of the Glomerular Filtration Rate. It is an aid to assess a patient's renal function. It is not a conclusive diagnosis of kidney disease. GFR normal is >=90 The MDRD GFR calculation is considered valid between the ages of 18 and 75 years only. BUN/CREAT RATIO 4 8-36 [facility] GLUCOSE 118 MG/DL 70-100 [facility] CA 9.2 MG/DL 8.7-10.5 N [facility] BILIRUBIN,TOTAL 0.7 MG/DL 0.1-1.3 N [facility] AST 11 U/L 5-40 N [facility] ALT 10 U/L 5-48 N [facility] ALKALINE PHOSPHATASE 96 U/L 40-140 [facility] TOTAL PROTEIN 6.1 G/DL 5.9-8.3 N [facility] ALBUMIN 4.3 G/DL 3.0-5.1 [facility] GLOBULIN 1.8 G/DL 1.5-3.5 N [facility] ALB/GLOB RATIO 2.4 G/DL 1.0-3.0 N [facility] ID Date Data Source [id number] 07/11/2020 08:36:00 AM EDT [facility] Name Value Range Interpretation Code Description Data Fide rce(s) Supporting Document(s) 1,25 DI-OH Vit D-SEND OUT 57.3 pg/mL 19.9-79.3 [facility] ID Date Data Source [id number] 07/04/2020 03:16:00 PM EDT [facility] Name Value Range Interpretation Code Description Data Fide rce(s) Supporting Document(s) PHOSPHORUS 2.3 MG/DL 2.5-4.7 L [facility] ID Date Data Source [id number] 07/11/2020 08:36:00 AM EDT [facility] Name Value Range Interpretation Code Description Data Fide rce(s) Supporting Document(s) PTH, Intact 185 pg/mL 15-65 [facility] Performed at: RN - [facility] [address] [id number] Document Improvement Specialist: Rhoda Samuel MD, Phone: [phone] ID Date Data Source [id number] 07/04/2020 03:16:00 PM EDT [facility] Name Value Range Interpretation Code Description Data Fide rce(s) Supporting Document(s) MAGNESIUM 1.7 mg/dl 1.8-2.4 L [facility] ID Date Data Source [id number] 07/11/2020 08:36:00 AM EDT [facility] Value Range Interpretation Code Description Data Fide rce(s) Supporting Document(s) PTH-Related Peptide <2.0 pmol/L . [facility] This test was developed and its perform ance characteristics determined by [facility]. It has not been cleared or approved by the Food and Drug Administration. Reference Range: All Ages: <2.0 The PTHrP assay should not be used to exclude cancer or screen tumor patients for humoral hypercalcemia of malignancy (HHM). The results should always be assessed in conjunction with the patient's medical history, clinical examination, and other findings. If test results are clinically discordant, please contact the laboratory. Performed at: [employer] [address] [place] [id number] Document Improvement Specialist: Manav Mac MD, Phone: [phone] ID Date Data Source [id number] 07/04/2020 03:16:00 PM EDT [facility] Value Range Interpretation Code Description Data Fide rce(s) Supporting Document(s) Vitamin D,25-HYDROXY 47.4 ng/ml 30-100 [facility] Vitamin D Status Range De ficiency <20 ng/ml Insufficiency 20-29.9 ng/ml Sufficiency 30-100 ng/ml Toxicity >100 ng/ml Patients should not be tested for 72 hours post fluorescein dye angiography. A false elevation of result may occur. ID Date Data Source [id number] 07/11/2020 08:36:00 AM EDT [facility] Value Range Interpretation Code Description Data Fide rce(s) Supporting Document(s) Calcium,Ionized,S 5.2 mg/dL 4.5-5.6 [facility] Performed at: RN - [facility] [address] [id number] Document Improvement Specialist: Rhoda Samuel MD, Phone: [phone] ID Date Data Source [id number] 07/04/2020 03:16:00 PM EDT [facility] Name Value Range Interpretation Code Description Data Fide rce(s) Supporting Document(s) T3 TOTAL 107 NG/DL 60-181 [facility] T3FREE 4.5 PG/ML 2.3-4.2 [facility] ID Date Data Source [id number] 07/11/2020 08:36:00 AM EDT [facility] Name Value Range Interpretation Code Description Data Fide rce(s) Supporting Document(s) Thyroid-Stimulating Immunglobu <0.10 IU/L 0.00-0.55 [facility] Performed at: [facility] [address] [id number] Document Improvement Specialist: Reyna Wilkinson MD, Phone: [phone] ID Date Data Source [id number] 07/04/2020 03:16:00 PM EDT [facility] Name Value Range Interpretation Code Description Data Fide rce(s) Supporting Document(s) FREE T4 (FREE THYROXINE) 1.02 NG/DL 0.76-1.78 [facility] T4 (THYROXINE) 7.2 UG/DL 4.5-10.9 N [facility] ID Date Data Source [id number] 07/11/2020 08:36:00 AM EDT [facility] Name Value Range Interpretation Code Description Data Fide rce(s) Supporting Document(s) Thyroid Peroxidase (TPO) Ab < 9 IU/mL 0-34 [facility] ID Date Data Source [id number] 07/04/2020 03:16:00 PM EDT [facility] Name Value Range Interpretation Code Description Data Fide rce(s) Supporting Document(s) TSH 0.313 uIU/ML 0.470-4.200 L [facility] Patients should not be tested for 72 ho urs post fluorescein dye angiography. A false depression of result may occur. ID Date Data Source [id number] 07/11/2020 08:36:00 AM EDT [facility] Name Value Range Interpretation Code Description Data Fide rce(s) Supporting Document(s) Antithyroglobulin Ab < 1.0 IU/mL 0.0-0.9 [facility] Thyroglobulin Antibody measured by [employer] Methodology Performed at: - [facility] [id number] Document Improvement Specialist: Rhoda Samuel MD, Phone: [phone] ID Date Data Source [id number] 07/11/2020 08:36:00 AM EDT [facility] Name Value Range Interpretation Code Description Data Fide rce(s) Supporting Document(s) Thyrotropin Receptor Ab,S <1.10 IU/L 0.00-1.75 [facility] Performed at: [address] [id number] Document Improvement Specialist: Reyna Wilkinson MD, Phone: [phone] ID Date Data Source [id number] 07/03/2020 10:50:33 AM EDT [facility] Name Value Range Interpretation Code Description Data Fide rce(s) Supporting Document(s) Progress Note [facility] JNFERf5wEoOTLbCt61/ZRWjqPYZjv9TwWMcaFCd0ZKrmPGRxC4QwIFO0mU2vJPN8ZTnEEgCqMcHmPBR0 lbm [file] AgICAgICAgICAgICAgICAgICAgICAgICAgICAgICAgICAgICAgICAgICAgICAgICAgICAgICAgICAgIC AgICAgICAgICAgICANCiAgICAgICAgICAgICAgICAg ICAgICAgICAgICAgICAgICAgICAgICAgICAgICAgICAgICAgICAgICAgICAgICAgICAgICAgICAgICAg ICAgICAgICAgICAgICAgICAgICAgICANCiAgICAgICAgICAgICAgICAgICAgICAgICAgICAgICAgICAg ICAgICAgICAgICAgICAgICAgICAgICAgICAgICAgIC AgICAgICAgICAgICAgICAgICAgICAgICAgICAgICAgICANCiAgICAgICAgICAgICAgICAgICAgICAgIC AgICAgICAgICAgICAgICAgICAgICAgICAgICAgICAgICAgICAgICAgICAgICAgICAgICAgICAgICAgIC AgICAgICAgICAgICAgICANCiAgICAgICAgICAgICAg ICAgICAgICAgICAgICAgICAgICAgICAgICAgICAgICAgICAgICAgICAgICAgICAgICAgICAgICAgICAg ICAgICAgICAgICAgICAgICAgICAgICAgICANCiAgICAgICAgICAgICAgICAgICAgICAgICAgICAgICAg ICAgICAgICAgICAgICAgICAgICAgICAgICAgICAgIC AgICAgICAgICAgICAgICAgICAgICAgICAgICAgICAgICAgICANCiAgICAgICAgICAgICAgICAgICAgIC AgICAgICAgICAgICAgICAgICAgICAgICAgICAgICAgICAgICAgICAgICAgICAgICAgICAgICAgICAgIC AgICAgICAgICAgICAgICAgICANCiAgICAgICAgICAg ICAgICAgICAgICAgICAgICAgICAgICAgICAgICAgICAgICAgICAgICAgICAgICAgICAgICAgICAgICAg ICAgICAgICAgICAgICAgICAgICAgICAgICAgICANCiAgICAgICAgICAgICAgICAgICAgICAgICAgICAg ICAgICAgICAgICAgICAgICAgICAgICAgICAgICAgIC AgICAgICAgICAgICAgICAgICAgICAgICAgICAgICAgICAgICAgICANCiAgICAgICAgICAgICAgICAgIC AgICAgICAgICAgICAgICAgICAgICAgICAgICAgICAgICAgICAgICAgICAgICAgICAgICAgICAgICAgIC AgICAgICAgICAgICAgICAgICAgICANCjw/jVRvH1is nJRfxnN4B7xsZr4ANj6UOG1rl3CuRHGsHJivysGtRyaIPdJvJTGnVklWLts4ZMusNT6OkJDmM0DtY5Mi HPhoSX3MCCRwEBGrfRHaBPTdRFDoNnJ1JGPmTVsdQK7TyLGyAWgjPILsPQAsCsScEZUyFJPqUTXgZJUz JGFVPNTcLUZuObWlHIfuOZ0Yu7UzpCN5GAp+Pg0KZW 5xa6UiQZfgNTGkCE6rij5CZSpKXySfR1XhkyQ5DKZbYLHuXp5OVWSsONCsgYUdVZUuZLIHQzIiP6MfuT 36RMWIIo8+EUnrzeJbSovZThKwDXYtg6ApFHa5IH0TAFVuAKc5rZIoUKRuF9Bvv0AsSn68MUUuVzlrGA Y1ynAiHvDFAC6aYZO8nJwkViDiZCKyKJ9ySV2rOHYo LPC3KnKvFHEHLU5ZHEPfFCDbcBAeXEVvEBJBZK6SHMuxAYY1MKXkdqBicVCpNRmnNG5GDUWuwaMeLgAt MCBSDQo+Ve6MIJ8ro2IdDHkrDuSpDM0czj0ACYiBUvHrW0Q8bTFsF7J1FVzwOd8QKDItCPGyTtfaBRPY VXckMC7XGP5jyqL0EM2NlEMjYXUaHLYxqXKcFKz0F3 3zbTWlLKtjCW0FJIQ+Gerardo+Or1TUCBmONGiLMMmAuVkIWLHMnNoY4PcL7PJn0BwU4JfVA22gWxtvwTmHE snWN2AXB6kTXEtWBNEJV9HvLHcvZ2edeJjAAGtSUNUOyOkP78ezKFnTLNbXTD8XFXoOd2CDADcY1Zocd VrpScwcmKjZVUtHLNGDB8HQSmhzuEkgBRjmKnbON34 sCrrLS4YHx9HFtGoXB7jti7IzKUdVz7LCJFhWe2KFVMjCWRaRETnDZP2ULJuWpNgCDggUGGnUITcIJZ5 LQRaJALmNS3DPeFfURQqXsMmKiNqZWClGEFcfw7IKKOpUOQwVozoQMDjZRUcWBEuZHqzMGQeUZYtNFU3 EIMgJUWdDR0IImUwNEYhSUPmErMjXEPtYHMqes4WUQ EuKYFiUUDvQUYaIRDqRXBrPKdvTOGaMBK2KZV4NQTaJUBfYE1QWdEiTCOnQBb9DrdeYVSjWUNzfi3ITD MaEPUzFTS3QuHrFKBqVLOvXYfeQFShSKL4FkC1CHYpZFPcJU3JJfNaFAQqVTbnScjbDMYzQJDwxn2SBA RrFMCnIGY0KWRcEEKnZSMyAQdgKCEnNJZ4VxAlYGEp MTTtCF8LHtRcRAPwLQg7NAbgBFXaLSWpng9HOQUvGGIkNNd2ZnDhMUHrNTLgLPjbOGDbOIWcNIZ0JRBm TEKkMK5UTlSbPTCwMrQjEBaiPROeDFDqcv8LMRXyULXnGcLjPlPaXLRsQISlDRxzPBNcRWRaJhU3RIOt BERkVV9NYfEpDJWaJzB0BGVkNETgRUZcej4PKQMlAK LiMsinXrNuGMHqXZQzTMlfPNYxIOM2JqWyBVJlEGDdTT0NUkUxEIXoIqS8WoIqNRZhHWVptw9NIFZmYP SqUOqoHDBmXZIlIWHqJHvmYUPeSAD3EHB9GXJpDMGkVP1BQgEmJWCjWnZ2DIUdPOCuMAWjad0GXOZaUE OmGXr5TRCuERVtLQRgLQyeAYJjTAE8OGEvGPOhVEMs CF0RXgGhWDEjKgL6ZnxhELSaGVRevi1RBAZvSXAbMQJoFuUuLONmKSGvGAtpWNYxUIS5CTP5UNRhATOc YC3KJkEtUDPfMxncUAQmXPEeVPHgux5BbKPmoGzfhe8ZWKgFUv9SiUflMDUaFQpoDa4xzVMhWbVnMIXR Pc7ZxvErXZRtTPVLVVtvPYQhEDYjMhpfHPT0IlN0UI SiSvWpLzw3LiF1SMX5GlI7WYR3DtL6FTNdPIYlLkLnInpaSNLlLXBmTchbSDy1KFDdOac5Ygw+IF0gDQ o+Yx0Hb3OfgoF0yzSdKIwrZPP7AN7MEGWTS5HYEx== ID Date Data Source [id number] 06/09/2020 08:58:46 AM EDT [facility] Name Value Range Interpretation Code Description Data Fide rce(s) Supporting Document(s) Progress Note [facility] XVCLXu1sYzAWEsCi82/YDOmiQMRqw1PtTRbuXWq9OHfeUACgY5UkMGE4vB6gOOB3XLeDFvWeGnFyFOJf lbm [file] E7Llp0OHR5GWT2XxCoWQ7WYq3OXqQ0UVX8aYUlWu8ZGyi4AYNXFxWrAR9SNYm= ID Date Data Source [id number] 05/26/2020 06:55:11 AM EDT [facility] Name Value Range Interpretation Code Description Data Fide rce(s) Supporting Document(s) Progress Note [facility] QSTNDw6zMoMLLnTu30/MTHkiPRZpk1PbZXltKBp0QWciYOBnO3BgBPM4kR2zABV9YCkKZbMaVqEfUKB2 lbm [file] UMUmP6EkHESaS1H7GSNtZcCgZbFrSH9WXi5NVsY0XYW6zIVfIa4ZIUixEcrAUeZbYX6YCWt= ID Date Data Source [id number] 05/08/2020 11:19:43 AM EDT [facility] Name Value Range Interpretation Code Description Data Fide rce(s) Supporting Document(s) Progress Note [facility] OCFLXx5yGwJYYcUs24/NRUtaWCTqx8LhJUumCDe8MOosQATqA8GyMSH4xN8zPIL3FKjHEqQlDgFcWmQt lbm [file] h9ahXZQDt7e2Xt/cone cleaner/pDIxZTYb7ebxw+RiasD47OxV [file] ICAgICAgICAgICAgICAgICAgICAgICAgICAgICAgICAgICAgICAgICAgICAgICAgICAgICAgICAgICAg HQRbGMYqIJBlVPSpDKUbIAFdER9FUFAdARPhJEEtCD AgICAgICAgICAgICAgICAgICAgICAgICAgICAgICAgICAgICAgICAgICAgICAgICAgICAgICAgICAgIC TkNOLbIYNqIHRwBNYxSONaTBJjSOKpTXJsJWXiXS3YHRBaUQXhTMIxFUOfMVMbHVRuHDNpPVJpLMPrGC AgICAgICAgICAgICAgICAgICAgICAgICAgICAgICAg IPBzVTWnYHNzZMRzLKNwVTYzPUTvXXWqPRIcKCRtTISaFELxNIHvEN9QAQFdASZjIZLsNOQoAMLfLLDf ICAgICAgICAgICAgICAgICAgICAgICAgICAgICAgICAgICAgICAgICAgICAgICAgICAgICAgICAgICAg FEVcJTUkCOTmYVKdTCDbSCUxBKEcWM6QISJkCPOuEF AgICAgICAgICAgICAgICAgICAgICAgICAgICAgICAgICAgICAgICAgICAgICAgICAgICAgICAgICAgIC SlJCJfQSHjFOEgJQVoZLIpIZUeSMQlFWJkEIEkLOZdOC0JECSmJTVzBZDrSUKeJDTmBHLoTSTfGMWfVU AgICAgICAgICAgICAgICAgICAgICAgICAgICAgICAg JEPiBEBeOALpWDFkFPQlZBKhBDFyGEQyYNTlTPGuTIGeDHWuEWMgGUTzIE8RXUZhOWTfYUQpQPUiGFKs ICAgICAgICAgICAgICAgICAgICAgICAgICAgICAgICAgICAgICAgICAgICAgICAgICAgICAgICAgICAg PTHtPCXkWKJdXFAtSENlRDCwOIQpCODqRE2MLTMsXQ AgICAgICAgICAgICAgICAgICAgICAgICAgICAgICAgICAgICAgICAgICAgICAgICAgICAgICAgICAgIC FvBXSsYYCxSWFtUNZuTTGlUCXmWHEqUCGoPKPdMLVtFHFkWC5FDJSjQOYpOEMkXRIoWCRnZANdJUIoFK AgICAgICAgICAgICAgICAgICAgICAgICAgICAgICAg CJAoVOLlCWVmYPPfZHSiYQOdCCCyZLAeLAQiUKUkVZOrFHBiWLRtMGKhNNJbND3HUCRhOIHcNSAyOSUq ICAgICAgICAgICAgICAgICAgICAgICAgICAgICAgICAgICAgICAgICAgICAgICAgICAgICAgICAgICAg VPRfWSHpGFLwCCEzUTWsZMQnLTJpTFMcQHPhXC5ETN 96xXMay6N3KJVeEU0bapt/Cs9AGLikmmSqiPXiRM8BVwLeEB0cic9YVqDjKO6noq6LOOwEDwPmP2T9zL FqUVKyTBEZOwHpA34rBJdxQj64PTnzVAZiMiFiHBw0Xj3YTsMwV4rzKXXxZlM3ZBJiXwC6BPQqItL7EF NsGeEzPUHnOYPlAQLmPLBZWZ5XRxGuS0EhsX35IVEJ Cj4+UIqgupJhSrwXSoSdENZeu0KdULw4KX3WQFEaRmqrx8TiHvOmEFJUBYznJL3LKHL4LPLoQKZiFi5Y YWHyH253egSbJJ1QIx1FJbUkMM4aca0APbMwMKUbJxyMVvo1PDltCF1ZoIGuDUjFjb6etjKuwoFLp4Cq pkXjwZJUNQMmMPAONYVqx9epgVWbCMYGBKXxzSV2Lz KdTkOyYmTrFIu2GXSrCW0pNXbrPP9VVNZ3PDfdMQAnPKLxG0xHIcSfJGLiMJGaqYynIC3NMkFsV8Mokq VudCAzMSAwIFINCj4+QFuwgtBsMxbHMcIcWXVle9PjLWi2NS7SMIYwOEilYM8KUJCrhU8tZIbdBE7IGh JrVIJeABCGFlExG61fbXZnPIa0T5NpUjGoAYPwYcoh ZXMgPDwvTmFtZXMgWyBdDQogID4+ID4+FRzxJG6XCLucqdWmOXAwXt5YBAXlEHMvBN8hKMKgETHcI3H0 rLmfZCJONoFyT0wrmfimIH3dTZOuU542pXhtilCeALVrKLZjWe2AGDAqQWJ8VTGnkZYqPqGyVEZSKDcx FI0GxGRsQLT8aN5bESxqEHImKURoV9dFExAvzHvoSY 51bGwgbnVsbCBdDQo+Xm6FWG1db5VfOGg3qlYyVLweEWN2EFnwOCOrUJGfZBBiUNK4BOO7OUHIDnWqIR SfGTHuOQnzLMOqPQEqhy6DVQUdEDO7SCJsARAeVQHtPMQwLJjnBYYaSKmxPGr1PWMzHZZiFY2EMfMjPZ NyDCQvKVozNRGeCEBghn4FIRNrPZWkBGtdTdNpFTFf HMJwTBkfGKOoSZC7QCKyUPJdCKCwDH5LZsVmTHViHRs5SEQmVCZmXEEqhd3UHYLfPRKwDPnyMXCaRZSb THBoUAatNXVlYDLpIzF9WOErYNGeGK9ZDwTcBRYrYSY5VQDsTVToFYCuis5MSODhAMCxRvDkVWCgVTAb IMEgFRroYQQmSNG9JZLuWJTmSJQcZS5QYsYrDJHoEG h9CWOxHQCfMQFcqg9PURQqJACqBTB2SrNzHJEcRDFvCGniSRRnKJUdCARqVONxRVCtER0XKdEcOUMnRr ObHTkiCLPyIFIzwj9BXULoSNDsDOVjNdBoKYXwXGSeDOioACAjFDOjOveaUGMxCQIkLB1AWkTjARFmCc Y3IZQrOQRtIMRkjc7NNCFwQRKkLMd8ZWDfAITbFTFu MVggTJFbVTLnYgEqFIVsHVVeSD4SSzXrNWNnAsB4FoTdYZQjVWPstq4TZVIjEMXdMqh2JCUjLEPhIBTb OHdlYSHuDHOoFZp6UGBtNAAlFN7EIbSbQROoIzEkVZAlAPLlCBNanj8PQHRlVBYhEIZ9YsFdSOQdDMPm FPjqSPRpXWM6BDB7LHGoDNXqNG6VXbWrSWTuKXo5Li jgFOPtXEWcdc8LIVZtUEC3MOL7FwEpQPEiMDXjZIotJOJbZHI9RlA6MGRcAROcZZ7BKcUrRAAbUrFgCA phDTWbNZWqpv1WKXYeISY6QZT7BLYiOVEcQJZzUMvdUYRjTCmdSYCmUFXjJRJlZP9LMoTsGXlkGEQMZw z5CDxqH1g5YHOlBV2YC4Kos3EoGxZhTTSYMRoaJB5x rfAmKNHnVl7SC6kEJed6BSiuCqVaSke2FFM5MgC5BNF3IDOxSJS8HsJwTNHxFB6gAQTtWTIhF8QrUXO1 HAupRctdAPViSRU5VygnE4WwMBN8XxIzBE0SJw3BWjM9GYP9nBLcFe2TSoM5CZLCDrKtJQ0YWNf= ID Date Data Source [id number] 05/05/2020 01:43:20 PM EDT [facility] Name Value Range Interpretation Code Description Data Fide rce(s) Supporting Document(s) Progress Note [facility] CVZJQk7nWuPNOnFn70/ODPqpOJOva8CyEKvyLId1ZEqbRBSaC9OmILI9aH7wXWF4BUkCZbJxJyXjRvS6 lbm [file] ICAgICAgICAgICAgICAgICAgICAgICAgICAgICAgICAgICAgICAgICAgICAgICAgICAgICAgICAgICAg ICAgICAgICAgICAgICAgICAgICAgICAgICAgICAgICAgICAgDQogICAgICAgICAgICAgICAgICAgICAg ICAgICAgICAgICAgICAgICAgICAgICAgICAgICAgIC AgICAgICAgICAgICAgICAgICAgICAgICAgICAgICAgICAgICAgICAgICAgICAgDQogICAgICAgICAgIC AgICAgICAgICAgICAgICAgICAgICAgICAgICAgICAgICAgICAgICAgICAgICAgICAgICAgICAgICAgIC AgICAgICAgICAgICAgICAgICAgICAgICAgICAgDQog ICAgICAgICAgICAgICAgICAgICAgICAgICAgICAgICAgICAgICAgICAgICAgICAgICAgICAgICAgICAg ICAgICAgICAgICAgICAgICAgICAgICAgICAgICAgICAgICAgICAgDQogICAgICAgICAgICAgICAgICAg ICAgICAgICAgICAgICAgICAgICAgICAgICAgICAgIC AgICAgICAgICAgICAgICAgICAgICAgICAgICAgICAgICAgICAgICAgICAgICAgICAgDQogICAgICAgIC AgICAgICAgICAgICAgICAgICAgICAgICAgICAgICAgICAgICAgICAgICAgICAgICAgICAgICAgICAgIC AgICAgICAgICAgICAgICAgICAgICAgICAgICAgICAg DQogICAgICAgICAgICAgICAgICAgICAgICAgICAgICAgICAgICAgICAgICAgICAgICAgICAgICAgICAg ICAgICAgICAgICAgICAgICAgICAgICAgICAgICAgICAgICAgICAgICAgDQogICAgICAgICAgICAgICAg ICAgICAgICAgICAgICAgICAgICAgICAgICAgICAgIC AgICAgICAgICAgICAgICAgICAgICAgICAgICAgICAgICAgICAgICAgICAgICAgICAgICAgDQogICAgIC AgICAgICAgICAgICAgICAgICAgICAgICAgICAgICAgICAgICAgICAgICAgICAgICAgICAgICAgICAgIC AgICAgICAgICAgICAgICAgICAgICAgICAgICAgICAg ICAgDQogICAgICAgICAgICAgICAgICAgICAgICAgICAgICAgICAgICAgICAgICAgICAgICAgICAgICAg MMLoWHAwOWKgXRRuEJJvSZJnXLAsRUJzNSNbDIHcFRRjQZUdCROpIEMbXSAfGNm7T5jzENQeZKIySS3n UYv0Ip0+TJpOLuNcWBQ9ouKwaA5PET3dx9OcTRjlXW Skv8HlKMi8EH9FQAYiCTozFJ0WPWuihv4MEVUdXOYdoECCn7nqQrClJWI4SHDbJyjkOH1TVGPnP0xilp RcACWqJEQVZQ9KKmHiA5IxkP19OLYINw3+XXnhloDlPhhONtU1VNWys1RdNYw8YQ1OSKAxTsvec5XnOf BlQGLBWDouIO0EFDW8KHLaNLWeEl8GOWAqX820xtUi SU8PLm4TGkZpCJ5hto9OVyMwQXKcMyqGHar9NOnxXH5LfCUqLMxByx5nuzEeiwOPi1ZzvyEofMKKSR4d JzKjjuXpeG9wXQ7SSTS5VWvaUw0hRUAfKJR1PdAxDRNGRS8FSRGxDXWmaMLaJZHnVREQPA7VVHosQMT7 FBLbkaEmoSUnLKcwLN5NYJEbzvUfMDewYJHSAPc+Pg 6BFD1bc2TcWAwmYEEgVD0jia4HZEkAEiShD0S4mNGwK5G1TIdqBz5YQFMwJKNzLXsxTLGBYPnkHN2RVO 1ixhZ5RN7DaPOcBJFhWLQpzWXxLLr9F41tfWPiPZnsUX0KCHU+Gerardo+Zp4UNSUlRNOiYWAkYpTaLJQVKh ShD8UfF8WTn0DxK0NkEF18kWrjgbFaSRevMT5YBH6b OKQuARCAPY9YlUNhlZ2cjjTlZNSuOIDSWkUuL07paRGoMANwFPB4NNKvQo5OCAYmD5FypaMojGpnzzEk ARVxLGOTCN2JRLhwkyAakMFgsEzzCA59eJjnBT6KEv4MJaVhSN8sgw3CsPNzPz3RBYJdBw4VDTYpGTAu MHYbAPL4ELBdDhJzNJtgYMZrOMYtVIC4SYItHXFhGA 5GNcUlGUJkOFQ1WTHfVMCbKKVnzu9JLAXbGXMdDHCiSmXsREKfIRXsMZlpIFScZBXhLNR2MJZfXIQrQR 8MBnXlIJRsEEX1ZUHbGVBtUQGhmg6SCQEeXZHtBPu0RJIhDVNsOTEvRVyvVZFsHFQyTSJjTUKsCIAcGG 9CDvFsYWVrYELtAJyyMIGoOPToxv5BNTKqTLAgZbC9 RQUzXKZkLNKqJAakALQhTLE9BaE8QOCnLEMiJI7DOpHsZSVdVHW3KlzwVZBkRUNtdh2OPWNlTEJtMULf TsTfCJNfZFZtQPzeTRWbZBS3ZKcsBNOjRXKsXU2JTyOdCGGsNMVfRXgkHZOnKTIuvi0NVHYwWFXbOuWb BiAkPSRgUUWqAWhlEXXfBXW4WqZ7YVMoKTBcEF7QEk UaSPJuILZ5KJCqHWIoRVAlqt1OEWHbFWVdNbQ2HhWtUVThJAQeWDqwXMDoFRD6BvEkJHIqCXKxOT7OFe OeTPTgLUa8KATaVFEbCPNilm5HUECkAWMfJOh1AfTtQIMxDLOqXWe9myRziENvPUo9NM9FE1XqogVhVw NUWx9Ao687FGQcWVIcAe8TA0syJu6qTODcEFBSTb7D WRx4ANd0TAG9AYC5JGAhYXE9AeAkKpEaL3A5EExhXqHbIWB+WEm3WPcvMWj9WeQhFyVqLVUkCZH3FxXi SdSyMBTnO0IuTk8kDQGLTp4+JWifwKBasAliUYENLlT8SKjbZFpgIEZQMq7B ID Date Data Source [id number] 04/10/2020 11:26:31 AM EDT [facility] Name Value Range Interpretation Code Description Data Fide rce(s) Supporting Document(s) Progress Note [facility] TRTWUz4pUtOXFnPo39/FDUoaXHZcy7GnDHwmYWf8AGqiVVQfJ6ClROD6hZ1bDUW3XVzNOwHmCqZkGuGw lbm [file] /9eOxh/Qi9+zayas+q/CeuBQDjfM+rxac/o9xSw2onhZU 325wBmxti7LCHSqd4OZ62/Esxno9Nwx0KbF53cziVmFol1jQESnM/IqivnJ5nSsahTc/F3fGJ9FRc19q 2iMbgicCNAipfxtFQnGQKwVGa43rNFKiE9WscR5LI29DkHRdJEJx7gKChdYeiCABHrXlO62iVV3fLyjM pGTq7XAUFRJLMgt+Nd4Oa7rJumeXoAisQVaF3yxsuN 1sPps+Oo9FYNi/kWGv0TnKX/BODixW1AukjEdREzNz/GAcY8XXl5DSeeLiumQA/OLLzp7vdTOkXpwTbT R0GkXplYiqn8YRoesPvr7UhZl3aubsMtp+9e2hA1gh334hC0Ijg7Y2a0enLqDUlpOXIUHH20tWZef2Fo d5gOEcjhyKysUe7/nfkh5dE7b2Gfqqicv6ahyg1h6B 1e7/dAHbDFuYoM26UEHOnrBbdr6+hESG5RDV2mcSvmwMq4CAsLqKJP21H6hVanOdY9x2XPcRoJtzBhyQ Ljwb1TDnA0jbLEz8SEz1sH7eJB1bTCOamwSCWQftPNbL9yIM4EVyWgenK29l008xNZAgdUppv6lNjb8R ti29nKzZQpS1o0BOUKdkizgFddKhNlyoIWiW2raVSY DXzMq5nOEZXYs0WCMaGN6GzKc9fC7xVaT/nbqAI9UQKz0+IFVVv7+4Joyg9n4k4uj063LI2BIX80roSo Wwthri1MPzV4vsjz9FkMLUzQ13iMyoXsII0gVmlFoibWl46/6g5Mmx5qpNts7nc7Kz+2OKIalkYPWtuj DU0/jQagcQOyz1CuAfGyjIFqfzYLVnLZqVOJM71+C3 eQTID9cBuxwowZBYG3ISzCOm0wsUY8VrCUYzbdoNzLXhhTaz2Xo1SWWDHlyLtZbTO7nAvFRC01LD5/jh mebCiyVOORdzvFftlyburxYZvVY46g+Ng9h9RtDxn9B/UFxGdN1zTAqMJqo7nx8kCml//0q6roaRPiZh IEZmgHb9fLg+CMi0qXF9BTCCPRB64AO7b1x1WGoZBs tHoNrh4DekiNtFlmtguK0FGIXyQ6IBf8GHXVkEhV7neeQSbBLAg+KEfoL+qr9+6qWDV1AzAwq8bcgN5s 4A/VvW/By6XeFbB9lhlke4Mb42+PUOsDNrAUtXHN41YxZswFyk7t+5MAbGCO/VK2Ktc3YOk+aD1JIMxG Y/+86r+PaJvGE8MQ0BR/VIGRHwbM/e8QT2yw1/KDD8 yxb/nBB+bYt/pjB9V9UIB32xdqdNlGGFj7uh6VpX/nej1KtX/dto6EvW/nsv7D7NBMZuTVVEZicyUia5 PhL6ZoN77igGh6AF/4lDd8zm41ADxc0z96/FgUOPmhwUz/tGI36sq+dVR75oc+aVP33iv+sIEpfmRxtS 62/ESBAk9TBYmCTl4um99mWy+YY9/ygw/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/5wQem [file] Vjv8q/r+ZuhFOo50B6MNMNKCQn49gFq5otPunk [file] ICAgICAgICAgICAgICAgICAgICAgICAgICAgICAgIC AgICAgICAgICAgICAgICAgICAgICAgICAgICAgICAgICAgICAgICAgICANCiAgICAgICAgICAgICAgIC AgICAgICAgICAgICAgICAgICAgICAgICAgICAgICAgICAgICAgICAgICAgICAgICAgICAgICAgICAgIC AgICAgICAgICAgICAgICAgICAgICAgICANCiAgICAg ICAgICAgICAgICAgICAgICAgICAgICAgICAgICAgICAgICAgICAgICAgICAgICAgICAgICAgICAgICAg ICAgICAgICAgICAgICAgICAgICAgICAgICAgICAgICAgICANCiAgICAgICAgICAgICAgICAgICAgICAg ICAgICAgICAgICAgICAgICAgICAgICAgICAgICAgIC AgICAgICAgICAgICAgICAgICAgICAgICAgICAgICAgICAgICAgICAgICAgICANCiAgICAgICAgICAgIC AgICAgICAgICAgICAgICAgICAgICAgICAgICAgICAgICAgICAgICAgICAgICAgICAgICAgICAgICAgIC AgICAgICAgICAgICAgICAgICAgICAgICAgICANCiAg ICAgICAgICAgICAgICAgICAgICAgICAgICAgICAgICAgICAgICAgICAgICAgICAgICAgICAgICAgICAg ICAgICAgICAgICAgICAgICAgICAgICAgICAgICAgICAgICAgICANCiAgICAgICAgICAgICAgICAgICAg ICAgICAgICAgICAgICAgICAgICAgICAgICAgICAgIC AgICAgICAgICAgICAgICAgICAgICAgICAgICAgICAgICAgICAgICAgICAgICAgICANCiAgICAgICAgIC AgICAgICAgICAgICAgICAgICAgICAgICAgICAgICAgICAgICAgICAgICAgICAgICAgICAgICAgICAgIC AgICAgICAgICAgICAgICAgICAgICAgICAgICAgICAN CiAgICAgICAgICAgICAgICAgICAgICAgICAgICAgICAgICAgICAgICAgICAgICAgICAgICAgICAgICAg ICAgICAgICAgICAgICAgICAgICAgICAgICAgICAgICAgICAgICAgICANCiAgICAgICAgICAgICAgICAg ICAgICAgICAgICAgICAgICAgICAgICAgICAgICAgIC AgICAgICAgICAgICAgICAgICAgICAgICAgICAgICAgICAgICAgICAgICAgICAgICAgICANCjw/eHBhY2 qsbFOotqR6K2gxGb3XXk4CFJ0gu1VjBPXcTJbafbVbPvkDHwVcHSJbXqaPMti4NFhtBB6EjIUdI6AgQ2 GgXKcuIF8DIYUcXXAvlFEsUGEsUXJfUoM1KEBeTRli IA9YhJSiWIolHQLfTTTaQhEbCITwJSRmXPRqCFOtYWHMWMWuYOStReZkCRonSA4Bd6GdaXG8JZg+Pg0K SU6oo9CaIDhnPFJvEW9wfp0JQNpBHqVkJ0NhasC4OCGzQYYwLd6ZFGCwAXRsnWZwOcJhCSDAZwEpH0Jp kH58BQDQDz4+CIfcnyQtWrjJWjFfNRWyy9QnTLz9JI 3LHBPpQPh7mDQeKFJlH6Mmd0HiCq01LALeUuhpFVP0awLlKsWRYJ3qJCS1mHatCgLtDCCqFg0yEeNkXj HrYRw0DnYtNP9gNYdoVT9QOLQ7EQvhSWWeQBAaF8dYUhHkKLDkEEDfhCmkEO6AWdLjL0XnxiPocIBsJI AwIFINCj4+YXdgksMnHrvMEkMrMIEva0OlFIc8EA0W VUUgMUudCZ3IEKCftQ4gTRvhIA4XZcYkFRRqEAVOPaXbT51bfAReGYa3V3ZgXqSwGVVtCncpQFVcYMlc TmFtZXMgWyBdDQogID4+ID4+IYbdBW8XTDdzylTaTNBsRy7CBZMpWCDhNX9sISAfPSVkA5D1fWldUWLI ClSsT2ssflilEF0wYURwD440fQbvdaOhWQQzWEFsOb 3BBMLwGEZ3MMPjoLQyBeVpWYOUGEbxVQ4RnLFnPGD5dD7rGMrmZZBbBZOrW8oHOnIpxFnoPT20hOhbij VsbCBdDQo+Um2YXL3dd0EuPZy7gyNiSStqNYX9IIlqJYWjNPRgJFWsXZJ8VIF4MJGGMvMbMDRkSLYkJK krIPFuEBDdkh5IFKTkSSC2QFB1AUSbVVEaHALgVZij YURbQEmpTOM7MCUxWXHqPD2HQyCgRIMhIOYrDEujDMMkCCFhtj2LIMPsMLAyCQm4XhGeRULaMMPtOArq DLTmNUB3WNS9FDRsKUNkIX6NEyNnIPSbKWc8PoRjJTAhXANgdn6KMEWuCJVzKNejQZBeTCEeFAUnVBqw TMJpLINkOHpqFSXvXBVeXG4ZZdNtBQWoUEL9GXNvNN LjIYWhbo0OEZPvTEEqKka7RYQyDJIqREZwMHpnVFAkACO6SNdsWDBeEWAtKG3PZbZlCWMnTCi7GRNuPJ YaWHEyzn1OOWXyKHZwKOV4VsUdKRPoFAUmXHsvMDDwTUTfAIE5RPYcHHUxON0XAvDpQVSeNpWcIGSeTO RwZKNkdx1HGUCbKVJiOXY1FjBiDBYlTHOxGSbyGINs XSAoMXF5CEHlZWKaQF7GOaNeEHXvLgH3QWvrSKDxUBPcja0OPWOmRUHpBMjdEpSgIIDlJWHaDQiaCRBx OZEyHpE8BRFrETLaDV8HNdTfNPQdVmR2BYZcQZVrPNJzbd9DYVKuVWTwJvrhVXJvIUWxDMLoDYkpWFKt AIZ4CNShOTIlKQLbAK4SZdSgJSGtTjUwFVFaKZBgNX Yijx3CDJOiGHZeUPUfBsWuADQgBIWxDIppTHGwBRM4OkE6OVEnYLXpHX9HJjEhEBOrIXf5LJFzFFWnJW Umua3VBDGgYZW4NIX9RfAwAVVfWUFhUVlsEGYdPKG6ASU4CGIuQJAtUY8YFcZuFQVeYyJxDwXvWPAhWE Dezb1UTUBpFSV6GKV9KHYqNIJeEOYqFEibVJUyMRcf KZp9CLMoLZKgTX3XXaJnVRdrDWDLVxa7DFtzX6x8QWEgEW7UP6Atz8WiGmPjJWXUULgaWY3nhtGeIMVm Pc2LT3fIZra6JuOyFLSpBuo9ErV0JYG4YRAmUcx1Mcl8MARvP0X9Xm7sPGjbYqLmNwAaSItgMXAmNtkk AOOuUCjtATMxJPW3Jjc4ZpFyHG8GOn0VErR6FZE2zJOnSu1KSaE1ZiaYUzHeXE2UJQv= ID Date Data Source [id number] 04/10/2020 11:15:00 AM EDT [facility] Name Value Range Interpretation Code Description Data Fide rce(s) Supporting Document(s) SODIUM 136 MEQ/L 135-145 N [facility] POTASSIUM 4.8 MEQ/L 3.5-5.3 N [facility] CHLORIDE 99 MEQ/L 94-110 N [facility] CARBON DIOXIDE 29 MEQ/L 22-33 N [facility] ANION GAP 13 5-16 N [facility] BLOOD UREA NITRO 25 MG/DL 7-25 N [facility] CREATININE 3.8 MG/DL 0.6-1.4 H [facility] GFR 16.0 ML/MIN [facility] Stage G4 - Severely decreased kidney fu nction The GFR is an estimate of the Glomerular Filtration Rate. It is an aid to assess a patient's renal function. It is not a conclusive diagnosis of kidney disease. GFR normal is >=90 The MDRD GFR calculation is considered valid between the ages of 18 and 75 years only. BUN/CREAT RATIO 6 8-36 L [facility] GLUCOSE 110 MG/DL 70-100 H [facility] CA 9.5 MG/DL 8.7-10.5 N [facility] BILIRUBIN,TOTAL 0.6 MG/DL 0.1-1.3 N [facility] AST 33 U/L 5-40 N [facility] ALT 20 U/L 5-48 N [facility] ALKALINE PHOSPHATASE 104 U/L 40-140 [facility] TOTAL PROTEIN 6.3 G/DL 5.9-8.3 N [facility] ALBUMIN 4.3 G/DL 3.0-5.1 [facility] GLOBULIN 2.0 G/DL 1.5-3.5 [facility] ALB/GLOB RATIO 2.2 G/DL 1.0-3.0 [facility] ID Date Data Source [id number] 04/10/2020 11:15:00 AM [facility] Name Value Range Interpretation Code Description Data Fide rce(s) Supporting Document(s) LACTATE DEHYDROGENASE 228 U/L 125-275 N [facility] ealt ID Date Data Source [id number] 04/10/2020 11:15:00 AM [facility] Name Value Range Interpretation Code Description Data Fide rce(s) Supporting Document(s) FREE T4 (FREE THYROXINE) 1.37 NG/DL 0.76-1.78 N [facility] ID Date Data Source [id number] 04/10/2020 11:15:00 AM [facility] Name Value Range Interpretation Code Description Data Fide rce(s) Supporting Document(s) TSH 0.471 uIU/ML 0.470-4.200 [facility] Patients should not be tested for 70 ho urs post fluorescein dye angiography. A false depression of result may occur. ID Date Data Source [id number] 03/30/2020 01:55:58 PM [facility] Name Value Range Interpretation Code Description Data Fide rce(s) Supporting Document(s) Progress Note [facility] NLBKZn2oXmRPMtVz51/JXWeuQWBsg3JmIRgrQFc7ZPunUKPyO7LfEYT4wO5wGVS2QVrFGyNiSaKsAsOy lbm [file] DHSvXwZ9LRV1BXGhZjYgNqZnDsD+AK7hERk+Ij5Pp6EmekK0glFpTRokSBI5FL8SAZDDA2AVEz== ID Date Data Source [id number] 03/30/2020 01:55:53 PM EDT [facility] Name Value Range Interpretation Code Description Data Fide rce(s) Supporting Document(s) Progress Note [facility] IOEOMy5fOeMOCrMl71/ZAJbsAFKvk3JlLHvoDXj2IEuwADXnB7PnDGS9mD9wBSY1EZiCOxQpNcPzSqOv lbm [file] PtLFiHJlx4i/r+BjbYOx07U4WGLNGQMx34xDm2 [file] 7x6GPUxpE2nvPMXxrFb41wuyVFaCQgTnqAHvm9+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 [file] K8ZgNiLSGhSXRkKUTeBGJsTTB1ARC+VT5tDSj+Hv9Zx8GpmzX4gdOiACj9DqR3WS4GABUXA7OTCz== ID Date Data Source [id number] 03/13/2020 07:28:22 AM EDT [facility] Name Value Range Interpretation Code Description Data Fide rce(s) Supporting Document(s) Discharge Summary [facility] BXGHXg2kUbQBDbIq02/DSDjnLLSol3LcBMmtWYe1NZafNUOdY7LnNEM7mI6zCZT6AKuBPzGbVpWkSlC7 lbm [file] AZlrfBN1BiM5IiZZQR3+victor hugo/mPw6VrA7QkYULsT3n5 [file] ICAgICAgICAgICAgICAgICAgICAgICAgICAgICAgIC AgICAgICAgICAgICAgICAgICAgICAgICAgICAgICAgICAgICAgICAgICAgICANCiAgICAgICAgICAgIC AgICAgICAgICAgICAgICAgICAgICAgICAgICAgICAgICAgICAgICAgICAgICAgICAgICAgICAgICAgIC AgICAgICAgICAgICAgICAgICAgICAgICAgICANCiAg ICAgICAgICAgICAgICAgICAgICAgICAgICAgICAgICAgICAgICAgICAgICAgICAgICAgICAgICAgICAg ICAgICAgICAgICAgICAgICAgICAgICAgICAgICAgICAgICAgICANCiAgICAgICAgICAgICAgICAgICAg ICAgICAgICAgICAgICAgICAgICAgICAgICAgICAgIC AgICAgICAgICAgICAgICAgICAgICAgICAgICAgICAgICAgICAgICAgICAgICAgICANCiAgICAgICAgIC AgICAgICAgICAgICAgICAgICAgICAgICAgICAgICAgICAgICAgICAgICAgICAgICAgICAgICAgICAgIC AgICAgICAgICAgICAgICAgICAgICAgICAgICAgICAN CiAgICAgICAgICAgICAgICAgICAgICAgICAgICAgICAgICAgICAgICAgICAgICAgICAgICAgICAgICAg ICAgICAgICAgICAgICAgICAgICAgICAgICAgICAgICAgICAgICAgICANCiAgICAgICAgICAgICAgICAg ICAgICAgICAgICAgICAgICAgICAgICAgICAgICAgIC AgICAgICAgICAgICAgICAgICAgICAgICAgICAgICAgICAgICAgICAgICAgICAgICAgICANCiAgICAgIC AgICAgICAgICAgICAgICAgICAgICAgICAgICAgICAgICAgICAgICAgICAgICAgICAgICAgICAgICAgIC AgICAgICAgICAgICAgICAgICAgICAgICAgICAgICAg ICANCiAgICAgICAgICAgICAgICAgICAgICAgICAgICAgICAgICAgICAgICAgICAgICAgICAgICAgICAg ICAgICAgICAgICAgICAgICAgICAgICAgICAgICAgICAgICAgICAgICAgICANCiAgICAgICAgICAgICAg ICAgICAgICAgICAgICAgICAgICAgICAgICAgICAgIC AgICAgICAgICAgICAgICAgICAgICAgICAgICAgICAgICAgICAgICAgICAgICAgICAgICAgICANCjw/eH BxK5ncoYPgxtP3L2imYq6PIc0YJM5oj3UcMDNzPJkaecKfCtmMAeZuNYRnOzvNHnc3GZdoCV3JxAPdI5 RpX9ArWNcgSA5ZDAEbVSEhlGEzCPCfQQPyBxX4WIQm VSmeMY8OdCAvYGkpRURjVRSvRfBgNAZdHHVtXHXbHAMpLCZDOZRvYRXtXlQsGPApZHGiWAmuZLSRLMR5 RDMfZfKjYGicVA3Cw5EyzAK8BJl+Gn7FOR2un9JxQZjzVSJfJY0duw7KCVaDYzCjA3OhvnJ9HUDnKQMj Fu1LPXKtSKXkhDOeAtGvWSIWHfOnS9NyhA30WWOFKu 4+DMppqtNeDntXRkGoUBJgh0HhEHh0EL9VZYAxGHy0rHPjRAdsE2fcicllFIO2dA0jnoolFrcbLuKjSY 0mTIWVbCZaV7xnzWxkDLZcXNYnLp0yOqAiJsRnQVp0NHEiIH4tZLjaPE9KDPJ2NQtxXLHuETJqC5qIYt WsUZOoLZExuHowUC6YDnHdG7FsjtWffKGiANRvSJPC Cj4+NCdusoVjIqmWWkLgVWNfp7RaIOf8HH6FBRMyVFluZJ6GLQZwmU1yBUpdZU0JIxVbTNNqYQSUCrEl M45gtYXgBSs8K7GdUpQrTZMuPtwdNENtZOplJgTtCVAjJjDuQJpsCS9+ID4+WVbsZZ5FXRxatpHbREEt Qp4DYWYrKZRgBZ6tDMOcFMOjL0I8iRzxSLCDKhQeX6 rhaqiyMU4jPMWtC491yCdkoaQpUECgVSJpSy3JCDAlQNZ9CEFzjTJlCdRiVROYSEwvGR7MdTUkUHH1iI 5xBBeoNAVmHVPpN2jPVfYjxFrvVY95aTpajiEikZUyQLn+Mc4TUN3qv3NqVVx6yiVwOCvtEUI6BCzgNO HrSYKcNHWzDUK8OBK8ZRMEUoDkEDTxZJAuWHhqQUBi GWRkbm5WFXMhVTZjXOo8VPXiVGBfOLIdLEvaLVWlPZS7BKW3UQAhNCSkXQ1TKdMyKFApZBWrLNcsZFPn PAOrns0EHGHdNPImTEQuNDGuCJHiPDRjWRtmTSDkWDL7KtD5AONzOCWuKL1CXkOdYAJxQDqkAjqyGKGg MWOsvg9IMQMqHPRsUXOiGjGzZWYmFWGaYIlgSCXeJJ W7VmJfGTGwCQNjKB3JDoQdUAYlFMV7UbCmPBXlQMXcxv6XUNDxWFThGWU8XjHfLLYaFXDkSVnwOGEcAD F8FmtfJNMgBLMzUT6IZaJcAZEdEgG6LNGbZVMkSNOcme3IPSByGGPgGiGiHXCtSABmVUKmAYqlTWGjXA N8XbM1LSDjKZDhSB8CPqMxXBOzDxL7QdBtQANzZNRj zh6LSBCkXRIqDHh8DrUxBSZbZXIfQMibGMJhBYU1BAQjELQmXFPqQT9AFaYwOFBgQoL3AGllVBGwGWPc qc6SMJNpFZLgAPilHkTnLKBeIPEtPTieJGDrDBKfEtpyFYBiXUIhFX5QWeFcWFRyIyV5UwXdMUYfYQLa di2URKKsDSIkQvA4MoCcTNFyGEAsDHqjACFiXIU0MZ DzRLUfKLCsTO3OAbZcKPEzSwSyAAWsCHLuPCWfeq1SJLGxIOHwQADnYkXhYTUpXHBpBAvaMRNkFWO9Xn BjFDGjOMXrTY8QNoHrELIpXxI2WqOlTZZeITTntj9JVXDyRQAtKRy2AhWeTFZvUGUzFLvaCDCwSPP5XE i6NSUePLPsPO8BKaOyHNNzTeg1MfFoOHYkDNZtdy3F YOMxWRDkTornPNClAUMcGWIhSJtaWGPqAZQ4NYq7YQQtLCHfZH4RJzApLBpzGKOJOxn7CNcrY7b6FCId TX7GI1Prl6JqAnNxDJNSUOgeMP5dseIyJAXeJx1FT7iXHigcWWDmHCR7O0X9DNmxL8AoMZY7Acf5ZYmg NQTzOuV4QS6xTHD0UEMaBaTmCcz2AYCaOXK1RjgtOW opGONxBIQ4ZFmgWdFqFX2SVv2AOiN3AVL6qJCvVi2SMfboGqBROzWeDN7YLPt= ID Date Data Source [id number] 03/12/2020 02:10:43 AM T [facility] Name Value Range Interpretation Code Description Data Fide e(s) Supporting Document(s) Leukocytes [#/volume] in Blood by Automated count 5.1 10*3/uL 4-10 [facility] Erythrocytes [#/volume] in Blood by Automated count 2.53 10*6/uL 4.6- 6.1 L [facility] Hemoglobin [Mass/volume] in Blood 7.8 g/dL 13.5-18 L [facility] Hematocrit [Volume Fraction] of Blood by Automated count 22.8 % 4 1-53 L [facility] Erythrocyte mean corpuscular volume [Entitic volume] by Auto mated count 90.3 fL 80-96 [facility] Erythrocyte mean corpuscular hemoglobin [Entitic mass] by Automated count 30.9 pg 27-33 [facility] Erythrocyte mean corpuscular hemoglobin concentration [Mass/volume] by Automated count 34.2 g/dL 32.0-36.0 [facility] width [Ratio] by Automated count 16.4 % 11.5-14.5 H [facility] Platelets [#/volume] in Blood by Automated count 218 10*3/uL 150-400 [facility] ID Date Data Source [id number] [facility] Code Description Data Fide rce(s) Supporting Document(s) Bicarbonate [Moles/volume] in Serum 23 mmol/L 22-29 [facility] Chloride [Moles/volume] in Serum or Plasma 101 mmol/L 98-107 [facility] Creatinine [Mass/volume] in Serum or Plasma 3.97 mg/dL 0.70-1.20 H [facility] Glucose [Mass/volume] in Serum or Plasma 107 mg/dL 70-140 [facility] Potassium [Moles/volume] in Serum or Plasma 4.0 mmol/L 3.4-5.1 [facility] Sodium [Moles/volume] in Serum or Plasma 137 mmol/L 136-145 [facility] Urea nitrogen [Mass/volume] in Serum or Plasma 110 mg/dL 8-23 H [facility] Anion gap 3 in Serum or Plasma 13 mmol/L 8-15 [facility] Osmolality of Serum or Plasma by calculation 319 mosm/kg 275-300 H [facility] Creatinine/Urea nitrogen [Mass Ratio] in Serum or Plasma 28 [facility] Calcium [Mass/volume] in Serum or Plasma 7.3 mg/dL 8.8-10.2 L [facility] Glomerular filtration rate/1.73 sq M pre dicted among non-blacks [Volume Rate/Area] in Serum or Plasma by Creatinine-based formula (MDRD) 14 mL/min/1.73m2 >60 L [facility] Glomerular filtration rate/1.73 sq M pre dicted among blacks [Volume Rate/Area] in Serum or Plasma by Creatinine-based formula (MDRD) 17 mL/min/1.73m2 >60 L [facility] ID Date Data Source [id number] 03/12/2020 10:12:19 AM EDT [facility] Name Value Range Interpretation Code Description Data Fide rce(s) Supporting Document(s) Thyroxine (T4) free [Mass/volume] in Serum or Plasma 0.87 ng/dL 0.93- 1.70 L [facility] ID Date Data Source [id number] 03/12/2020 10:12:19 AM [facility] Value Range Interpretation Code Description Data Fide rce(s) Supporting Document(s) Albumin [Mass/volume] in Serum or Plasma by Bromocresol green (BCG) dye binding method 3.3 g/dL 3.5-5.2 L [facility] Bilirubin.total [Mass/volume] in Serum or Plasma 0.3 mg/dL <1.2 [facility] Bilirubin.direct [Mass/volume] in Serum or Plasma <0.3 [facility] Alkaline phosphatase [Enzymatic activity/volume] in Serum or Plasma 80 U/L 40-129 [facility] Aspartate aminotransferase [Enzymatic activity/volume] in Serum or Plasma 14 U/L <40 [facility] Alanine aminotransferase [Enzymatic activity/volume] in Seru m or Plasma 14 U/L <41 [facility] Protein [Mass/volume] in Serum or Plasma 5.7 g/dL 6.4-8.3 L [facility] ID Date Data Source [id number] 03/12/2020 10:12:19 AM [facility] Value Range Interpretation Code Description Data Fide rce(s) Supporting Document(s) Thyrotropin [Units/volume] in Serum or Plasma 1.510 u[IU]/mL 0.270-4. 200 [facility] ID Date Data Source [id number] 03/12/2020 11:24:40 AM [facility] Value Range Interpretation Code Description Data Fide rce(s) Supporting Document(s) Differential cell count method - Blood [facility] Neutrophils/100 leukocytes in Blood by Automated count 72 % [facility] Lymphocytes/100 leukocytes in Blood by Automated count 22 % [facility] Monocytes/100 leukocytes in Blood by Automated count 1 % [facility] Eosinophils/100 leukocytes in Blood by Automated count 2 % [facility] Basophils/100 leukocytes in Blood by Automated count 1 % [facility] Neutrophils [#/volume] in Blood by Automated count 3.57 10*3/uL 1.8-7 .0 [facility] Lymphocytes [#/volume] in Blood by Automated count 1.05 10*3/uL 1.2-4 .0 L [facility] Monocytes [#/volume] in Blood by Automated count 0.04 10*3/uL 0-0.8 [facility] Eosinophils [#/volume] in Blood by Automated count 0.09 10*3/uL 0-0.5 [facility] Basophils [#/volume] in Blood by Automated count 0.04 10*3/uL 0-0.2 [facility] Variant lymphocytes/100 leukocytes in Blood by Manual count 1 % [facility] Metamyelocytes/100 leukocytes in Blood by Manual count 1 % [facility] Lymphocytes [#/volume] in Blood 0.04 10*3/uL 0 H [facility] Metamyelocytes [#/volume] in Blood by Manual count 0.04 10*3/uL 0-0 H [facility] Macrocytes [Presence] in Blood by Light [facility] Anisocytosis [Presence] in Blood by Light [facility] Poikilocytosis [Presence] in Blood by Light microscopy [facility] Dacrocytes [Presence] in Blood by Light [facility] Spangler cells [Presence] in Blood by [facility] ID Date Data Source [id number] 03/11/2020 12:27:34 PM EDT [facility] Name Value Range Interpretation Code Description Data Fide rce(s) Supporting Document(s) ED Provider Note [facility] NTKGVx9xPgVHDgGn95/TVWofLNKer1HxPFqrBDy9CRtxZHUqE3SpOBV9fR4iONB6HTnWEvVdLhNfQqCi [facility] NbZwvQSeWhYUZxRfjALqZxEPjzHijpvCCaVI1OpVF0FDGqX00kXZNoNFFcM0HsMQWbIpO+Pj5WWEMhkP NcLJ7NQwoF6Q2Eqyk5Dm0BRB+lsgRRwdmbUjmKOBfLqm2DHWzWfXWPYGuz8JVaP2EkLdy/PrVK/Z6oz/ 4NvW4IsLNEZLCEf4k1PjYv/fdHtJWnSqmo/u/2Z25N [place]/o7a6W651Vb0m/wBAtNXdHkG9k2F/Yz1/Rd+OIye/hwlrqKo1Tk1TPuBPNtaQhAYo2jwwgw+Ovxf [file] E+DQogICAgICAgICAgICAgICAgICAgICAgICAgICAgICAgICAgICAgICAgICAgICAgICAgICAgICAgIC AgICAgICAgICAgICAgICAgICAgICAgICAgICAgICAgICAgICAgICAgICAgDQogICAgICAgICAgICAgIC AgICAgICAgICAgICAgICAgICAgICAgICAgICAgICAg ICAgICAgICAgICAgICAgICAgICAgICAgICAgICAgICAgICAgICAgICAgICAgICAgICAgICAgDQogICAg ICAgICAgICAgICAgICAgICAgICAgICAgICAgICAgICAgICAgICAgICAgICAgICAgICAgICAgICAgICAg ICAgICAgICAgICAgICAgICAgICAgICAgICAgICAgIC AgICAgDQogICAgICAgICAgICAgICAgICAgICAgICAgICAgICAgICAgICAgICAgICAgICAgICAgICAgIC AgICAgICAgICAgICAgICAgICAgICAgICAgICAgICAgICAgICAgICAgICAgICAgDQogICAgICAgICAgIC AgICAgICAgICAgICAgICAgICAgICAgICAgICAgICAg ICAgICAgICAgICAgICAgICAgICAgICAgICAgICAgICAgICAgICAgICAgICAgICAgICAgICAgICAgDQog ICAgICAgICAgICAgICAgICAgICAgICAgICAgICAgICAgICAgICAgICAgICAgICAgICAgICAgICAgICAg ICAgICAgICAgICAgICAgICAgICAgICAgICAgICAgIC AgICAgICAgDQogICAgICAgICAgICAgICAgICAgICAgICAgICAgICAgICAgICAgICAgICAgICAgICAgIC AgICAgICAgICAgICAgICAgICAgICAgICAgICAgICAgICAgICAgICAgICAgICAgICAgDQogICAgICAgIC AgICAgICAgICAgICAgICAgICAgICAgICAgICAgICAg ICAgICAgICAgICAgICAgICAgICAgICAgICAgICAgICAgICAgICAgICAgICAgICAgICAgICAgICAgICAg DQogICAgICAgICAgICAgICAgICAgICAgICAgICAgICAgICAgICAgICAgICAgICAgICAgICAgICAgICAg ICAgICAgICAgICAgICAgICAgICAgICAgICAgICAgIC AgICAgICAgICAgDQogICAgICAgICAgICAgICAgICAgICAgICAgICAgICAgICAgICAgICAgICAgICAgIC QeHGChOZNzQDOoDNGnTRGgLAFvVUYeQXByCLXbFXRuSLTnNMIuIGWiNARnOUSjMIInSGOuLYy6Y8muQO IoJOMyUO6pADo6Za2+GKbOXbPkHYD0moAdxI8HSA7d d3VeVLxoEICkg0WrNCx6HP0PYDHwAHpgZW2EKIympd1IMCTrRPEuhAFPg6vfNaUpTKV4AELyZwbpTC6E NCBkM7dajbMxNGOuWOTNBSynZIGALUuvEAPGHSNiSHOrEdUeWaLqNDAiUCDxGWEDJUD0ZDIhHhSwXSGn UONtUuFpSDUTCOFcWGWqClPaLIbpAV2Yd3XkvNGnSF 6VFk4IFrQxFR8ndv8NKXGbCXEoPzgRQyq1MCmqLU9RjFYgoCY6PHGmDATJCoBmE8akx2SiXWIdMENMHG rzUF1Ac0MsnDFtYE7YIc4WWqTbZE3iim7RFBLsNUKvZcjEPgc8SFnxVA7XjBGnSCaKGYJJko13sCOxna IRp0PwywNraGZKj9RvFFVweZ6wd56rTZ6TRRP9RJKj XznaPpSlRFSoWHeqBJGZWGmBGhBxI0Okj4TcArD1VWJbUiJlUGbeQNXqMjNuAI19mJlcMU0TPBSlWJUu MO05UPAwJKUpXa1KABFtMxN8vBJ5CBVnZEPJTu9+TCvpzmLuOvxCTqX6UGZfa9BbKAl9HY8MGQIsBVw5 nBMjDPQhQHVospypEORePs47GEOuCgdwMh7aBHIEy2 xlgD2yZRICPUOriGK5PxL7IcAlNvQcAPj4XSZfUG0dHTasGJ9YLSH3ZRrlWCWsSZKKXP5WHFegHLC3Gl qtrzUpzSPnGJjaYD5HDASrlxAnPXJhWQYCSGpxRI8RsqY1CID2LHLbBs9ZLSAsUzB9pFE8YfUpNOPMKn 4+SHspnyLkXmlRBfP8CQGzg1DoYDu2MV3WLUBlIUr7 aDKvUDHfOn60CRSmLirzON0sOX4wH5IdyNfpFBSFLEC7HQGhDnkuGlLeTXFtPstmDFCDIEmIRyMoG4Bs i8IdNvIwFVKlAPBtA0iSWlMmHKWvFJIwfBuzXN6FUpZqJ6MrmhNqkKW2VkGxCSBKZlVmC6ClFEYcOBJa LCRDMWkvSH3XTYx1LDD7UXDyUp3CMj9FPgOdXX0fuq 4DUScbNIJvEkpWNfe6TRntPX0ZcEFlBApGUFPQh1RnjzOjhPHKzt6zYDPDPYdjvFeuNd6ePUPuBW1aKW 5dEWDbERGtAfNmTKIWGF5IFAPhJLRfcLIbRPLwPUOyEaBeKFtuEXViVgR7VJ04mSqnAS6VLKHoFDBhKK 92LPYtABOrQp4ZLLUnYKCdmcM5GnAdVXWKXxKyI39k eHQgNDggMCBSDQo+Wd1YNX1lq4ZuGVc0RGJbQD6vod6VKNgUIyHoI2KjdOseRHUHGB7avUXiOJK4KLMg qkSHEEwyuAe5HWOSJoXkhUH8YsA0QnGmStMtZNN8SZHtSR8xGHtcBX2AUGZ2BSdwYhJuXXVVOV3SIGvh JSCcRqPnisCmqZScFTooEJ3YWKEhsrTwEBAoHAKXSQ pqUO2WzrY1XVX3YCDkAq7BSBPlDxO5nSW0ZDLaAJTHSm6+ZCnfbeHaGotBLrQ5GBZvb5DcDHn5KC2PQV AcCUr8xTHyURRdNt26AEQgVgjtZW5gZP4nL4ZikWubMRYIUVA9EQSrFvloUsPxYBDtJRbfNHMUUGmSHn NoS5Uua5HyWyLmIVAxLVZlM6nECiXxTLQ0WHMmcPtw HS6WFeGkS1WlvoKliFN1BjWzJYJUCaSoN7JnLFDyULgyZMJDKEprZV5DWGq2CEOlGUIeUd1BGf9UUvLd FL9mco9SIUHzDMEiChxRPta9EMxoDJ7ZrMBqVRgZVFBJz5TzwmKbgYLBiu2dRZMAAOavdFniLy1rBEGu CL3zVI2yRCAjYJG5TdZjPWNHDN3QOORyYPEcfWDwCC MkNTKgJuUhJOsqDAGgKNrexvTnrDWqCSdmQX3QTDIrwhTzQZIvVRLVJWngSX1UcoO5EMT0UCEeBb0KCH IcOrA8cWV6BUTfXZHDEn7+BBptsbBpQayZOxWaPEMcu6NrBXx2NC4JCAXkWJv0qOFjJCLkEm75IGLjRw whAL4xBL4hX4FlpKczQAFJWYB1TVHtDhptEiCyGLMq VVmcInVAKFsZHqEpV9Ywm5ZkSgFjKySsZEOoJ2gDBuPnSMCyHTBbfQybCI8AVqHdX5QuvlUcqVR1OcAf OPPAMfOjH5VuRMBaSMFxWBXJQXdqLB5KCNx7OZClUWUaHx7DCp2YYvVlDR2gdj5UUGOsSWPpAzkZUze0 OQdhLA0CwGRrVEuPQKPHl6FssqJdkUMRvj9aZBMIPM onlFvgSf2cOSYgIE9cAV5lFTHlJQD6HkBgHJOTQJ4DOBHyBAKriFCcZUYzKDZtQkSfXDadSCOcQJF8KM 10wRwdPZ0DILJzNKOvJG19SJBxJZDgTw8MYLBuVRZkvzS6FZHaVDVQHhPnN60svZGjHTYxPPVRDSm+Pg 6HXT4cd8LfQFo9EzUoXH4uek5JMUkWVtGeD8LsbFnn BGXXGW7piUSpFFW9YHm9khDZQDYhgigaqheoJn8mUDHaWC8kLB5mISOhNOF4RzVcFKLNBK6CYKQdHXDf eYNdNMDqSPHqBtXfUHelVMVdWBO0HJ92tMilWL5EMNQoXVKhIG24KXRwAGKfEh9ZQZEfCVXszwI5PmGr WOANYgEqK98rtXDlBJZcDRKNWIk+Cj0LOE8bz9SzUQ t7OKBaZW4qyd0EAFmINkEfB6GwrAoqDTNUDVVecWZhLHEQx8ZvytQptRCWkI4mJBUPo0DvcHBxGRXJUI D1NGXyXgkaRrKdHZFhJHt1HaWNEIhJYvQfK0Moc8LxEpWjPiNwBIUvA6tRMdIxNTC5SILphLerZZ4CBo XfX9OjjsHhxYV8QeNfPFPQTeIqW1XfBUHeKLWnKVKE DQo+Um8SIS1mk5VkLTh9VJEyVU9nhu9VCAjISmPvD8Y6xCFhL6H3EUjfSg5RNKOiJWOgUFVzDEPOTDgu XC0TSB4doqA2KJ7TkWZzWTHiXZMzgWNtKSw0Q69ktBYcMSttXA6CZVO+Gerardo+Zu4SIQNpSSRyIJLgYnPk LETIGkNoC2ElU7MMb6EhX2DkVE42vIlcrqEaMBrxDK 1GAO9kBSVwRXNUGE3BcEMmjO7tnmK8SbWfYVZGEbCoQ12orFGrBJOfIALmPEXuZo3RWUJbZ5OgknExqC frbkOdSUAlEFKJXU0HUWgmhqIlvIQbvIiqMK64aExcJF7LNy0MCqWrFC6kxu9MwDRaNq1ELRI7Qh9KKH LlTROcIFAwJTU5SUHdOuRfASowRLBeCTTeAII7OJDy OAOfSN8AYxYkWNOzKYqcSDhlGUOrPJHqca5FJAKmXOJ4AIYcUSIaXZSmJWKvOVgyWJTtUBRhUZL1JIGm LWWzYY9ZQpErPACzYSL0HVYrEVPnMRCrth5MWCNvWQXqHbuvAGTfSUCzSCUlHObjXMFwSBA7MKT3XZUa LKEvYF8ZHlZkRMZaZKJhHOalRAMcJNAwts9QALYsYD GsXJL5EqLbAQCmJFIfKThpVJCfUMB6BxtyRJUnNHDdOW0XSuPfFJEqXAQ0EnhiIFDgFARruk7CEGUpEV NeNjp2WIXaRARhIKPbNPzrTGBmDAU2NcB5MJZcNICgBI8RRfTmYTHlPKV1HgVjIJWzBNGmei9XJJEuHP GbDYs2SwYmULMgAJGvIXjsNYMiJJI6RVD5SIGnJLHf JO6YGrHeVUMiToHhJDBdXIHpVTEjck0BMZIxTEVkDNW2WJRgWUOcAVTcIGcrWRGpDRG3ZgF2SJPwMOEz BN3AVzUlPIWhLrA0LhQgCZTyBHOkwv7FKLIoQEMzUvv2EWJeJUPnWSYeUHmdCZHuSTQ1INO6OZKxCISz ZR5CGfFsBILpOvXhMVOrVPLcDKVbbe4KGXVpACYbCJ H4DLScVJPeJZPtBBoeOJLyFIGjVYNkCWIqPTGzIH3EOaSpDUSuVtB2UClyBVRaOTLmrb4XAOQuEBFaUA nkHYOxNSBxWEFnIPbxXUWkVLIqHCqfVSOqZLUhRZ6OLvCeZXYrYsZwHSYnKGWxQGFlcj2HTLQhABNxJl I7KHHxRLMdSNZqYLycVGQsNXE9UsJcGKCcARUrWH1V FfNxNUJlKvO7EcukTLVrGQQavr5ULYXoYREnVZWjOEChWQIvBQNhCDtcGWZcRGA1LGT2FWHpSJWvYZ4O IzMlXVKuPCUeQlJcKVNaKBRqbe9NNMTkZPA6IkGfPjRtUMDySSOcDIbbKAOqIKF9YyczNYQhMEZhHR7F PvUzPWEpUTA5DEdyNAGfGJTaje5OZXFzPLJ2Lip8TN DfUNFqBXCmKJceVKNnJOJ6HBZ8SGXcGGBcGK5UBlSwVTLtXEeeDfjzCUNxQPJhsb2CHTQgZQZ9SCR8UQ FpFEHtKOYuKAthKZQwJHCzTTQiZSJaIVJeNQ3TIjVmBTRwDWBrKkTbTOKpDQHlmx1LQDPbAMA2VND0QJ QaQOMkRWBlJRjkWHImCOYnDFauIJHmGQHyAR3BOwKu MKPoJVF9BMNxPZYfDABdaz7XCOJsWDT5GPnkVePyUJWcQUNqZYhdMNMyWUNcNOJxPUPoCYVfGG1EKrRe YOSaPKKkGnSoMVPpDIZaov9IZLQgOLL8DAA2VMQnBCTcLENhCCjgAPDiTDIjRgH7XTSuCCRfIA6VXjIq HZPrOKU5LKVcKQXuKTHwim0AYTFnEDT8LRu5TRAeUC SyVPKrDRaxZGJjXCVgVCCxUVPjROMaYS2DXmOzDLjgCLYXSvh6TEgvD4u4WZP6Rp8KW0Bxk2QsGKAuOO AMJQxsFB3shrAtRKNjVa8XQ5cHXnk2L0E1MsOvUJllLDVyW5Y3OaW1D1J6YsQsNYi2LAY6Xq1mIBhdGX wxBwQ2MOAmJTI1GmByFMg8YcAlLMPcUyW2PIQ4QjAs LL0PJh0QHmG9YLC7oPZzOj8ZKQTcMoHCXiLzOW4JWAe= ID Date Data Source [id number] 03/11/2020 12:41:46 PM T [facility] Name Value Range Interpretation Code Description Data Fide rce(s) Supporting Document(s) Leukocytes [#/volume] in Blood by Automated count 5.8 10*3/uL 4-10 [facility] Erythrocytes [#/volume] in Blood by Automated count 2.57 10*6/uL 4.6- 6.1 L [facility] Hemoglobin [Mass/volume] in Blood 8.0 g/dL 13.5-18 L [facility] Hematocrit [Volume Fraction] of Blood by Automated count 23.2 % 4 1-53 L [facility] Erythrocyte mean corpuscular volume [Entitic volume] by Auto mated count 90.0 fL 80-96 [facility] Erythrocyte mean corpuscular hemoglobin [Entitic mass] by Automated count 31.1 pg 27-33 [facility] Erythrocyte mean corpuscular hemoglobin concentration [Mass/volume] by Automated count 34.6 g/dL 32.0-36.0 [facility] Erythrocyte distribution width [Ratio] by Automated count 16.1 % 11.5-14.5 H [facility] Platelets [#/volume] in Blood by Automated count 221 10*3/uL 150-400 [facility] ID Date Data Source [id number] 03/11/2020 12:13:58 PM EDT [facility] Name Value Range Interpretation Code Description Data Fide rce(s) Supporting Document(s) Consultation [facility] [id number]/UUDoaPHWwc0WwWLraLDj1BMkrLDZcA5HzEXU5yX7dWPA4BEoIIfLnZzBzLyMz lbm [file] [id number]+[id number] ID Date Data Source [id number] 03/11/2020 01:36:14 AM EDT [facility] Name Value Range Interpretation Code Description Data Fide rce(s) Supporting Document(s) Leukocytes [#/volume] in Blood by Automated count 4.7 10*3/uL 4-10 [facility] Erythrocytes [#/volume] in Blood by Automated count 2.43 10*6/uL 4.6- 6.1 L [facility] Hemoglobin [Mass/volume] in Blood 7.5 g/dL 13.5-18 L [facility] Hematocrit [Volume Fraction] of Blood by Automated count 21.7 % 4 1-53 L [facility] Erythrocyte mean corpuscular volume [Entitic volume] by Auto mated count 89.4 fL 80-96 [facility] Erythrocyte mean corpuscular hemoglobin [Entitic mass] by Automated count 30.8 pg 27-33 [facility] Erythrocyte mean corpuscular hemoglobin concentration [Mass/volume] by Automated count 34.5 g/dL 32.0-36.0 [facility] width [Ratio] by Automated count 16.3 % 11.5-14.5 H [facility] Platelets [#/volume] in Blood by Automated count 193 10*3/uL 150-400 [facility] ID Date Data Source [id number] 03/11/2020 02:13:16 AM EDT [facility] Name Value Range Interpretation Code Description Data Fide rce(s) Supporting Document(s) Bicarbonate [Moles/volume] in Serum 23 mmol/L 22-29 [facility] Chloride [Moles/volume] in Serum or Plasma 98 mmol/L 98-107 [facility] Creatinine [Mass/volume] in Serum or Plasma 3.83 mg/dL 0.70-1.20 H [facility] Glucose [Mass/volume] in Serum or Plasma 123 mg/dL 70-140 [facility] Potassium [Moles/volume] in Serum or Plasma 4.3 mmol/L 3.4-5.1 [facility] Sodium [Moles/volume] in Serum or Plasma 135 mmol/L 136-145 L [facility] Urea nitrogen [Mass/volume] in Serum or Plasma 107 mg/dL 8-23 H [facility] Confirmed Anion gap 3 in Serum or Plasma 15 mmol/L 8-15 [facility] Osmolality of Serum or Plasma by calculation 316 mosm/kg 275-300 H [facility] Confirmed Creatinine/Urea nitrogen [Mass Ratio] in Serum or Plasma 28 [facility] Confirmed Calcium [Mass/volume] in Serum or Plasma 7.2 mg/dL 8.8-10.2 L [facility] Glomerular filtration rate/1.73 sq M pre dicted among non-blacks [Volume Rate/Area] in Serum or Plasma by Creatinine-based formula (MDRD) 15 mL/min/1.73m2 >60 L [facility] Glomerular filtration rate/1.73 sq M pre dicted among blacks [Volume Rate/Area] in Serum or Plasma by Creatinine-based formula (MDRD) 17 mL/min/1.73m2 >60 L [facility] ID Date Data Source [id number] 03/10/2020 04:37:13 PM EDT [facility] MR FACE ONLY WITHOUT CONTRAST [id number] RESULTInterpreted by:Melissa Mitchell MDINDICATION: 64 yo male with 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 Indeed previously seen intermediate intensity signal mass involving the right nasal cavity and extending into the medial aspect of the right orbit and marginally into the right maxillary sinus is not evident any longer. The same area now reveals increased intensity signal on T2-weighted sequences suggestive of edematous changes. The study was performed without IV contrast therefore small amount of residual tumor cannot be entirely excluded. Obstructive sinusitis is present in the maxillary sinus bilaterally as well as left ethmoid air cells and frontal sinus. There is also partial opacification of the right sphenoid sinus. Previously seen remodeling of the right lamina papyracea is less pronounced on the current examination. There is suggestion of mild improvement of previously seen right orbital proptosis as well.Which should be noted that the current examination is a marked by the artifact generated by the metallic plate in the right infraorbital region as well as the lack of postcontrast imaging..Susceptibility artifact from an indeterminate object in the right cheek limits evaluation of the surrounding structures, including the m ass in the right nasal sinus. Evaluation is also somewhat limited by lack of intravenous contrast.The visualized portion of the brain parenchyma is unremarkable.IMPRESSION:1. Limited evaluation due to susceptibility artifact from an indeterminant object in the right cheek as well as lack of intravenous contrast. Within the limitations of the study, previously seen right nasal cavity mass with extension into the medial aspect of the right orbit and right maxillary sinus for the most part is not identified and elongated. Signal characteristics in this area reveal mostly inflammatory changes and/or necrotic tumor. Residual tumor cannot be ruled out based on the unenhanced images on2. Persistent obstructive sinusitis as above.This document has been electronically signed by Ole Maynard MD on 03/10/2020 4:35 PM Name Value Range Interpretation Code Description Data Fide rce(s) Supporting Document(s) ID Date Data Source [id number] 03/10/2020 01:15:59 PM [facility] Name Value Range Interpretation Code Description Data Fide rce(s) Supporting Document(s) Leukocytes [#/volume] in Blood by Automated count 5.0 10*3/uL 4-10 [facility] Erythrocytes [#/volume] in Blood by Automated count 2.64 10*6/uL 4.6- 6.1 L [facility] Hemoglobin [Mass/volume] in Blood 8.2 g/dL 13.5-18 L [facility] Hematocrit [Volume Fraction] of Blood by Automated count 23.7 % 4 1-53 L [facility] Erythrocyte mean corpuscular volume [Entitic volume] by Auto mated count 89.9 fL 80-96 [facility] Erythrocyte mean corpuscular hemoglobin [Entitic mass] by Automated count 31.2 pg 27-33 [facility] Erythrocyte mean corpuscular hemoglobin concentration [Mass/volume] by Automated count 34.7 g/dL 32.0-36.0 [facility] width [Ratio] by Automated count 16.1 % 11.5-14.5 H [facility] Platelets [#/volume] in Blood by Automated count 199 10*3/uL 150-400 [facility] Differential cell count method - Blood [facility] Neutrophils/100 leukocytes in Blood by Automated count 86 % [facility] Lymphocytes/100 leukocytes in Blood by Automated count 9 % [facility] Monocytes/100 leukocytes in Blood by Automated count 3 % [facility] Eosinophils/100 leukocytes in Blood by Automated count 1 % [facility] Basophils/100 leukocytes in Blood by Automated count 1 % [facility] Neutrophils [#/volume] in Blood by Automated count 4.36 10*3/uL 1.8-7 .0 [facility] Lymphocytes [#/volume] in Blood by Automated count 0.45 10*3/uL 1.2-4 .0 L [facility] Monocytes [#/volume] in Blood by Automated count 0.13 10*3/uL 0-0.8 [facility] Eosinophils [#/volume] in Blood by Automated count 0.04 10*3/uL 0-0.5 [facility] Basophils [#/volume] in Blood by Automated count 0.05 10*3/uL 0-0.2 [facility] Nucleated erythrocytes/100 leukocytes [Ratio] in Blood by Automated count 0 /100{WBCs} 0-0 [facility] ID Date Data Source [id number] 03/10/2020 05:17:44 AM [facility] Name Value Range Interpretation Code Description Data Fide rce(s) Supporting Document(s) Leukocytes [#/volume] in Blood by Automated count 4.8 10*3/uL 4-10 [facility] Erythrocytes [#/volume] in Blood by Automated count 2.16 10*6/uL 4.6- 6.1 L [facility] Hemoglobin [Mass/volume] in Blood 6.6 g/dL 13.5-18 L [facility] Hematocrit [Volume Fraction] of Blood by Automated count 19.1 % 4 1-53 [facility] No significant change since last result called Erythrocyte mean corpuscular volume [Entitic volume] by Auto mated count 88.5 fL 80-96 [facility] Erythrocyte mean corpuscular hemoglobin [Entitic mass] by Automated count 30.6 pg 27-33 [facility] Erythrocyte mean corpuscular hemoglobin concentration [Mass/volume] by Automated count 34.6 g/dL 32.0-36.0 [facility] width [Ratio] by Automated count 16.6 % 11.5-14.5 H [facility] Platelets [#/volume] in Blood by Automated count 178 10*3/uL 150-400 [facility] ID Date Data Source [id number] 03/10/2020 05:59:18 AM [facility] Name Value Range Interpretation Code Description Data Fide rce(s) Supporting Document(s) Bicarbonate [Moles/volume] in Serum 25 mmol/L 22-29 [facility] Chloride [Moles/volume] in Serum or Plasma 100 mmol/L 98-107 [facility] Creatinine [Mass/volume] in Serum or Plasma 3.93 mg/dL 0.70-1.20 H [facility] Glucose [Mass/volume] in Serum or Plasma 107 mg/dL 70-140 [facility] Potassium [Moles/volume] in Serum or Plasma 4.0 mmol/L 3.4-5.1 [facility] Sodium [Moles/volume] in Serum or Plasma 138 mmol/L 136-145 [facility] Urea nitrogen [Mass/volume] in Serum or Plasma 112 mg/dL 8-23 H [facility] Confirmed Anion gap 3 in Serum or Plasma 14 mmol/L 8-15 [facility] Osmolality of Serum or Plasma by calculation 321 mosm/kg 275-300 H [facility] Confirmed Creatinine/Urea nitrogen [Mass Ratio] in Serum or Plasma 29 [facility] Confirmed Calcium [Mass/volume] in Serum or Plasma 7.6 mg/dL 8.8-10.2 L [facility] Glomerular filtration rate/1.73 sq M pre dicted among non-blacks [Volume Rate/Area] in Serum or Plasma by Creatinine-based formula (MDRD) 15 mL/min/1.73m2 >60 L [facility] Glomerular filtration rate/1.73 sq M pre dicted among blacks [Volume Rate/Area] in Serum or Plasma by Creatinine-based formula (MDRD) 17 mL/min/1.73m2 >60 L [facility] ID Date Data Source [id number] 03/09/2020 06:55:43 PM EDT [facility] Name Value Range Interpretation Code Description Data Fide rce(s) Supporting Document(s) Leukocytes [#/volume] in Blood by Automated count 5.7 10*3/uL 4-10 [facility] Erythrocytes [#/volume] in Blood by Automated count 2.24 10*6/uL 4.6- 6.1 [facility] Hemoglobin [Mass/volume] in Blood 7.1 g/dL 13.5-18 [facility] Hematocrit [Volume Fraction] of Blood by Automated count 19.8 % 4 1-53 [facility] No Significant Change Since Last Result Called Erythrocyte mean corpuscular volume [Entitic volume] by Auto mated count 88.4 fL 80-96 [facility] Erythrocyte mean corpuscular hemoglobin [Entitic mass] by Automated count 31.5 pg 27-33 [facility] Erythrocyte mean corpuscular hemoglobin concentration [Mass/volume] by Automated count 35.6 g/dL 32.0-[facility]0 [facility] distribution width [Ratio] by Automated count 16.5 % 11.5-14.5 H [facility] Platelets [#/volume] in Blood by Automated count 171 10*3/uL 150-400 [facility] ID Date Data Source [id number] 03/13/2020 08:01:58 AM [facility] Name Value Range Interpretation Code Description Data Fide rce(s) Supporting Document(s) ABO and Rh group [Type] in Blood [facility] Blood group antibody screen [Presence] in Serum or Plasma [facility] 03/12/2020,0000Performed at [facility], [address] [place], [place] at 1515 03/09 SR ID Date Data Source [id number] 03/12/2020 12:44:41 AM [facility] 03/12/2020,[id number] Name Value Range Interpretation Code Description Data Fide rce(s) Supporting Document(s) ABO and Rh group [Type] in [facility] Performed at [facility], [address] [place], [place] on 5B at 1351 ID Date Data Source [id number] 03/09/2020 03:51:48 PM [facility] Name Value Range Interpretation Code Description Data Fide rce(s) Supporting Document(s) Platelet function (closure time) collagen+ADP induced [Time] in Blood 100 sec 72-108 [facility] Platelet function (closure time) collagen+Epinephrine induced [Time] in Blood 100 sec 98-160 [facility] Platelet function (closure time) [Interpretation] in Blood Narrative [facility] ID Date Data Source [id number] 03/09/2020 02:59:48 PM [facility] Name Value Range Interpretation Code Description Data Fide rce(s) Supporting Document(s) Leukocytes [#/volume] in Blood by Automated count 5.5 10*3/uL 4-10 [facility] Erythrocytes [#/volume] in Blood by Automated count 2.34 10*6/uL 4.6- 6.1 L [facility] Hemoglobin [Mass/volume] in Blood 7.2 g/dL 13.5-18 L [facility] Hematocrit [Volume Fraction] of Blood by Automated count 20.8 % 4 1-53 [facility] No significant change since last result called Erythrocyte mean corpuscular volume [Entitic volume] by Auto mated count 89.2 fL 80-96 [facility] Erythrocyte mean corpuscular hemoglobin [Entitic mass] by Automated count 31.0 pg 27-33 [facility] Erythrocyte mean corpuscular hemoglobin concentration [Mass/volume] by Automated count 34.8 g/dL 32.0-36.0 [facility] Erythrocyte distribution width [Ratio] by Automated count 16.6 % 11.5-14.5 H [facility] Platelets [#/volume] in Blood by Automated count 178 10*3/uL 150-400 [facility] ID Date Data Source [id number] 03/09/2020 05:01:48 AM [facility] Name Value Range Interpretation Code Description Data Fide rce(s) Supporting Document(s) Leukocytes [#/volume] in Blood by Automated count 5.7 10*3/uL 4-10 [facility] Erythrocytes [#/volume] in Blood by Automated count 2.26 10*6/uL 4.6- 6.1 L [facility] Hemoglobin [Mass/volume] in Blood 6.7 g/dL 13.5-18 L [facility] Hematocrit [Volume Fraction] of Blood by Automated count 20.0 % 4 1-53 [facility] Called to and read back by Peña Chambers on RN on 5B at 0501 by 1521 Erythrocyte mean corpuscular volume [Entitic volume] by Auto mated count 88.5 fL 80-96 [facility] Erythrocyte mean corpuscular hemoglobin [Entitic mass] by Automated count 29.9 pg 27-33 [facility] Erythrocyte mean corpuscular hemoglobin concentration [Mass/volume] by Automated count 33.8 g/dL 32.0-36.0 [facility] Erythrocyte distribution width [Ratio] by Automated count 16.8 % 11.5-14.5 H [facility] Platelets [#/volume] in Blood by Automated count 183 10*3/uL 150-400 [facility] ID Date Data Source [id number] 03/09/2020 05:29:10 AM [facility] Name Value Range Interpretation Code Description Data Fide rce(s) Supporting Document(s) Bicarbonate [Moles/volume] in Serum 23 mmol/L 22-29 [facility] Chloride [Moles/volume] in Serum or Plasma 97 mmol/L 98-107 L [facility] Creatinine [Mass/volume] in Serum or Plasma 3.79 mg/dL 0.70-1.20 H [facility] Glucose [Mass/volume] in Serum or Plasma 108 mg/dL 70-140 [facility] Potassium [Moles/volume] in Serum or Plasma 4.1 mmol/L 3.4-5.1 [facility] Sodium [Moles/volume] in Serum or Plasma 135 mmol/L 136-145 L [facility] Urea nitrogen [Mass/volume] in Serum or Plasma 117 mg/dL 8-23 H [facility] Confirmed Anion gap 3 in Serum or Plasma 15 mmol/L 8-15 [facility] Osmolality of Serum or Plasma by calculation 317 mosm/kg 275-300 H [facility] Confirmed Creatinine/Urea nitrogen [Mass Ratio] in Serum or Plasma 31 [facility] Confirmed Calcium [Mass/volume] in Serum or Plasma 7.8 mg/dL 8.8-10.2 L [facility] Glomerular filtration rate/1.73 sq M pre dicted among non-blacks [Volume Rate/Area] in Serum or Plasma by Creatinine-based formula (MDRD) 15 mL/min/1.73m2 >60 L [facility] Glomerular filtration rate/1.73 sq M pre dicted among blacks [Volume Rate/Area] in Serum or Plasma by Creatinine-based formula (MDRD) 18 mL/min/1.73m2 >60 L [facility] ID Date Data Source [id number] 03/08/2020 05:10:50 PM EDT [facility] Name Value Range Interpretation Code Description Data Fide rce(s) Supporting Document(s) Leukocytes [#/volume] in Blood by Automated count 6.4 10*3/uL 4-10 [facility] Erythrocytes [#/volume] in Blood by Automated count 2.45 10*6/uL 4.6- 6.1 [facility] Hemoglobin [Mass/volume] in Blood 7.5 g/dL 13.5-18 [facility] Hematocrit [Volume Fraction] of Blood by Automated count 21.9 % 4 1-53 [facility] Erythrocyte mean corpuscular volume [Entitic volume] by Auto mated count 89.2 fL 80-96 [facility] Erythrocyte mean corpuscular hemoglobin [Entitic mass] by Automated count 30.5 pg 27-33 [facility] Erythrocyte mean corpuscular hemoglobin concentration [Mass/volume] by Automated count 34.2 g/dL 32.0-36.0 [facility] Erythrocyte distribution width [Ratio] by Automated count 16.8 % 11.5-14.5 H [facility] Platelets [#/volume] in Blood by Automated count 188 10*3/uL 150-400 [facility] Differential cell count method - Blood [facility] Neutrophils/100 leukocytes in Blood by Automated count 86 % [facility] Lymphocytes/100 leukocytes in Blood by Automated count 11 % [facility] Monocytes/100 leukocytes in Blood by Automated count 2 % [facility] Eosinophils/100 leukocytes in Blood by Automated count 1 % [facility] Basophils/100 leukocytes in Blood by Automated count 0 % [facility] Neutrophils [#/volume] in Blood by Automated count 5.57 10*3/uL 1.8-7 .0 [facility] Lymphocytes [#/volume] in Blood by Automated count 0.68 10*3/uL 1.2-4 .0 L [facility] Monocytes [#/volume] in Blood by Automated count 0.14 10*3/uL 0-0.8 [facility] Eosinophils [#/volume] in Blood by Automated count 0.03 10*3/uL 0-0.5 [facility] Basophils [#/volume] in Blood by Automated count 0.02 10*3/uL 0-0.2 [facility] Nucleated erythrocytes/100 leukocytes [Ratio] in Blood by Automated count 0 /100{WBCs} 0-0 [facility] ID Date Data Source [id number] 03/08/2020 03:09:29 PM T [facility] Name Value Range Interpretation Code Description Data Fide rce(s) Supporting Document(s) [facility] KXGGIe6cYsKBSxDt34/EKLkpXPJup5HtYZeuECm9TSojCGRmS7VqCIG8jB7oVTK4TWxEIlLkWnMtFTDk lbm [file] XSANCj4+GEfeoABceAuyMOIAQdXpTIFhDIjbVIXIWl2G ID Date Data Source [id number] 03/08/2020 08:28:19 AM EDT [facility] Name Value Range Interpretation Code Description Data Fide rce(s) Supporting Document(s) [facility] GUNFZk3qGeBDTxZrg8ElZfZwODIaCT0hulp7S9I6uTCdS5VawWLqb6iwC4QpD4RcWGBwKYMIZW2ZrJYs jb2 [file] behavioral assistant/2Am7X53+aG0C1Ay4NC3AY+E3+A3+Af+A3+F3+A P+gH/CP+Ff8KO+jciR6ugDH8eov08mUIUX9m0Qe/Ar/Aa/wT/gH/A7/A5/wB/wT/gn/Av+Bf+Gf1+/ob 6A30s4yplqg8l+olmyck3nrem3PrubhD+qoej3Gt8p1Fkvw9456chDG/X1/M2pr6f/1DfSf+otqm1HmB Lk7xg1lVMX19G0z0CMM6+l9AUcqt/51Hc/6f/Udz/p N7/lAf+vjiFc35A3nde+gD/dp3srVi01l71aE+DCNFu1XDjDjPDtednjzdg/9d3j+D/6/pb9+5uPun+3 /Yj7d/8fbf+eg6O+oh8eTpA8c03oht8ne2kof50mmmoYfP4w36fMlz5m9uNgIe5M3S2f1avAjaCxKf2H /ylmBSTWn66n/vm67jlJFdk+jthwS1Q/y3b8+RvzWx 7wD/z+2Sd6bht1lA7e6LNgLv/4J35/9otI2rsB4+/rn8+R4m2HqBrs+HCd86H0A+o7Ud+J+m3F04HKbu n+gD/gn/ID2C3O38gzdtVp0/LGcff9/Bcy4gZ2Ih/Ar/Cpgy2JlyuY6wcnKw+40Vz4aKrx33ACD35901 B1zZUfI9uqyrJm8ge/LoxH+1zfWkn+3PtrC/wC/7m+ zGQ91UuAwu7hsc/gP/L570ed546vLt/g9xh/81ku6QYEaB/4F84H/fM+9c21dc/pr54qf/jXw8V3at4+ 5vbPZ/c80LHe5Gr2GSomhBIhqY3r1o3Fb+a2cewwnanGCK5S31tcl5oqZiX7g37J97IXqbYgz5qOi+C/ 968+9/3Xwecsqd3sxyDg2Du2Kx/Bb/Pd4kfzn2LZtx z+SlNfVTngD/gn/BP+9b2vz/Kjg2xAv+/vU1/l+Ojga0ae2v7SK4+5Xoeh0jUBfWHjZu+A/96/qvf+VQ 34A/4J/4R/wb/g3/Ct13e2RhoawleJ/FdPaukry/L3/lK7+lnN4B/wD/vUpj7ba4//sZyj0y8CoqUjm9 7LC/4F//84B1g1Ajevs24c5g+4/ZUOgV/v/o++esuG /eD+Pfoq+73g7Xu15Pao/d7vR1+lrjvrvN++5eir6h+JrkoD5C/at47RXKq5980w9XT8U7gcdg3EkHOK oE9/lcsiS1+lX7+0S0RjMdc++p7m0E3ObrV39cQ6Ef/Xf4DRiX/9sJN34ZgedD8YdTr+OzsLuk/+5J9c z33L8G/49/UffZVT/05B9oIe+DkXtk2q/IrfK/ZjD8 rwD/iApyCsn37wbud7HUS5+pvziwJIaiMtg0vl9YoD80g7+Szdfq/V6Ht1DXLEk5V1gr/8Aj/Gb6ql0V mef4mm281CU844d/H7rSnFS2GgZgfd5ukUG2Z+j76q+5FPp62P2V1g8tdf7Vic+baF1Epyinb9bCd55l 5dCr/Cb/Ab/Bh/J1od9MgnZE59Snx4Hkqaerm/6rvu 93Oqjaz06UPRD3+66do51ZwkGB81Mgb1qt2V8UlGzvMF+m7Ud6O+++Z9MRbS66Rk3y7x48n/nPrqLX/9 Z+06BxLf9Kr75/rac/MoKDv9cmCRzJWiou/22tlnxNjoulzk20HN/gn/hH/Bv+Df8N/zQLa39Gloe/t7 5K8M+Naveed/FX+cgQ18SozM2GA9+CKvIH4WnJMTu8z9w 1RtrnKKl9/4/eor6K+yF+OXs2luv+UEgIKV46OgnEu4I/dd63ew4RVjkv+gD/fq8mF6cf4BePKCg2d6S fNnUN9e/kUng14u7bO9JmSu1pjtPWocb+lf2D/F38R73UogC1Up0/4PeprqK+hvobrm/oq28m4+TpLfV Xlm6+n0ngjk3+DNnD/si6o4fw/mUXChG0N47ilN/pq Ztlv+hvhe56k7Gf6/xQ0Dynim9hY/4Z/X7/e0ic9Vj4f8tqs2vq2IzQLRe5rki+qDP+Qi1Npr58s6Su7 +Hrafc9BL5H2dt1Gq9y0JV2iI+u3fza/469l/fteL3k6m0KYb0cr+mb+qhYP3+eFs/z5W0Z/DenvBf0t 3Ocjq/hTcs16sfchmbo/zcR4n7pV/gn/gn/Bv+G/+Z pf6bb7VrNd0e/jHpgOV715XzX09vE04lKsze3JIZdul3NomzooejqxR/yob+Wv0p/P++lfOO6G/z7/2k S1C27Qw7fE/xr3wm8UKB5283/4ljjaMAa0oru672K8Ryk+K7D/U9+Q4OMaRJL36WQDzryffzAo0/e4vq dw7et54dvmp1/b031PUJ1jpf+ufm03xXBjy/ e2168pTZ9/8tfRt7D93sPq68l8vtj/3qR1/o3qic4kez+/W1CJshf/LMdr8u61Yon/q166su83gs98y/ /uUGwWAcuRQvcMdG6Qm12Bozn75p2vxejqVq3fmPKdDa/w27Qv071Ajh8e/gapRGeCQ0hkrGTAmiy5oF 4ekstBI9jpIE82wdpS2xtw48o9jd3mLT4AklYI8alE P4272AfP1r2ZfD5ispDcs5V2qvbTtubA7bAyuE/4R/wr/gX/Bv+G++bqS+spXU555J1b+qDL/Cr/Ab/A Y/5ec21Yt3BKW7B/6A/+qNgfeDA+7UR22PNffbSIq/OOzqyWEP/FdPjspfZVnhV/gNfoN/wD/gd/ivfh 4XT28WM8V0lh/kY7u3kWxCH0/5+cHpuEU3Mc3pD18x n4/GUPgNfoN/wD/gd+whhppS5xH/v/e6gkmuxzvzu6K8Ljdtsw0S+33cfPtZT/z+graff/70LOa+Rubeb5P 66nqeTFCppUL5/wWoRlCDO1oK/j9q+pG1kmnv+33Ul/i7y3MU3nJt/3/qXaUkQVq7eI/X3/mr94y/EdP xqo2K4g/usUrdNrnJ4u28FhjlfhVs4g74jtzhzwt5v UFsE0nT855n7vG/4R/wr/gX/Bv+Ll4o3pzI0i/qrLAL/DrPc+p9/yPvqpx5+otd7ay5Pgxf+m2IhMoZ5 /p7YzZB21GCUkR967Rzu/bsfNk4776IFN0n6/7f2TXx3TrsnhXglU0scSW+BV+g9/gH/AP+K0Ida0PBq 3wLcM/sZ95x+Wjr75l+Df8+/qPvvqW/Rhb4OzzIJws 5k1uBc74jB/Gvu/3R+kjfpfdR0Y9pxn0/A5/wB/wn7tGLN6c+7kRL5BTbooEdXz7y/6GZ/7qLcN/+qvT N4evmlig/Aq/wW/wD/mTGfr08e2Xvz0DW/6Af8I/4V/wL/g3/Ec1xpiuvKE+lSN/1RWmW38YwbKg0Fa3 B/mPcppi1p/zR4ktdbJx3fT39XYz/+dnb18h9TcB+7 qp3P5xALalAsCR+BV+hd/gN/gH/Hc+w0o5I23cF+DsJOhsmas4aVIH7Y7Xen/bsf5q5tviU6/yAJe2rc f8+/7+0Ikzq8XX+Pa5UmqlFfjA/3kenLntmb/pqjMp6W/8WH8SR9U/5OgE63Ro8i3d1RcVD2aPXu41AX //0SuaMwxc4lEG83U0JzL51Rp0W4R+Bvyo7/B7/gPX w1j1Rv8p04XFkSfa3uIBT4/DB+9qktGtYq12TTk5jiWWP6XG/KOhu9l9Asnx2aOnb6/ym6/u2Ic7zw8i /+x++2f3gD/gn/MQ5Qc5MB/7bc/81Vu+/kD/HOeu8DvRTjj/3NPfQs8s36FKjco29Z9J/ShXt326D91x +d8FzvkgQf+Ef8K/4F/wb/m24z40G+fcn78i9pj6bQ E98m70B+02069X0jN7/H5gP+W/foP77Q6i9o+J+cbzD4Oo4X/4N/z7+js2m5tltLYck+XIXznyV5 75qyob/AY/4jtUxbj9Kmx/hgG5z3I1Ku8r9xK+eaG+lb/GtpZYBz55vahnjn/P9ltppfRPo398XsmQxd SsSjoGx6NN809sgK/nX9/JH4gs1w1m5/znKXEvIQ1W ylY+6iyUnY+edvjRV/PJe/Cjr+aT9/jnp/FX52HtA2DO7AchPzSsE46pc5BB18U5r9tm1K3U+jk0kwCA j//qc1O5l9iQPW/bYOhLZ4jdk01bn186kmI+jbDyz4m+JvyWJ34/sZ/4kZz27K++ycskzAA4bxpnfzPv 5p/HOiz9h99o9Gs6Cwdck0ty4/m6lRT7Jzzcgtj/4L /99AOHdozgICY1VC/4F/wb/n83H573d/AL/PIdT8+611uG3+A3+Pl3P71Q7+EP+AP+Cf+Ef8G/4N/wo7 4tvtIHyw9kgkmu2bV1Sz/Cb/GcwP1nx5tYk9Nm3Nj8kY9ar98giffqt2TjM6Zuxa0pfx+GqtkoAGu5ax RXbxm/v/o5Mn+VbX7c+YEg4jrPAGt/HkPcF0T2/I7f B/YT8E/4J/wL/oX93/e/Me773/CbnwzH/ev3+Ly49p3vh49Lg/m6cIM/55vl7+/16ku7eu9b7ve1xOcP v/UbDfJTtbtMfxeQB4Co2H/6Zh+V+ir7Or/vQyPu+9DI/FWu/I1e07i55/mb80xYqnR/FchfBfJXEXe+ WWT+ipTomr3PbpFF/D6wnwn/hH/Bv+Df8J/5Ei6h2t /aDldGy4W/83UxUd/NV5YmOi+V8ZkYj+CarwZa0uty79/sdOfJM5bS9a30X1Uzto72UA/774m3KsVA+7 oL716NeLBd27U24Tl0XP2OX+QRl131S+football scout/HOV/F2JsQZl90Yn2/1YAX/g93c+UqyJ/S/sf8G/4b/5jd [file] wk9SLol0HYHv1T60GvPEO+YmN+Jennifer+L4m3FThC36bQ OrNswG4RLfEsMXnMN2FI1YwWz1lJ+YmN+YmN+Ugmf3FLBUQ0BTcWVlKcDvXPF9/nPMVDagA9VLfSdWNZ q5Kvi7NJPiMidQhY/JTkc1Tumo3PWP0j83GP6LTnWRrwBhvVj6c0yRtn4NzKiirNjR+Ktdx8TighJFTE prbNh8sYujx01gQJb2SW6YSThXeHSBveNQW4rok3tz ay3dFNKtqHva2iPy1XisFW5rYeqWKQdtuhjvoUx4Of97JGIkPag1PBnWMkojlQjW3nzWoUXqnXdMYqBY mQVbGq6hBKz+JBwFJZH8CSY18aY+qD/Ry1lFZ2WPh5Yh4FmQUyaJlEoTLEHTxvnBpEpZIhRQwLKiWfUC mUwl5HXUlv7yS0NuYSAKxD0wOE8JvMlsmLZEugOkxW e7Dva7LVLlBvyJr7NBnmqTjYoQIpWveK5fYQdpG38ZgfT4/InEc29tsbsNU2aTyFS0blVwyossLyNmry K5RzTnmc1WZCHntUmJrqISGbYAhYJsXN7izmC4rwlN1Pyaiwx8U8txNwbOGocgSoJl29HDHCw2QqBhhk XaQRsAfpgK4FqgxYa8Jp/osKW9YhR9woWK2TBi5rg6 xL2ALInjaVwiqWAFz5NFlxdKShpGrd4DzxiBZ3n5rF3xzWCqLlpCli16di2V5IQ4XYmtif2Gu6ky4Wrd 3CYrvMj3LQhNUCEn0khuhB9KjBTsEw7xodVFvfwR7d4kCYxvQLfxpEiilhLfqW/Z1YE3t+B+8IDt6s33 V7Uc6MljxkoWT96ukk4iJgf9mpaKPD4slHJ5bNKlll fTOG0Uj2XS5DT1SIQ+yuHCdKys3Yi+UxwKVJj+TeIfVriqLnQSEL6CPPbsMbHbhJwnK0asocQGuTB4VW YwVQeOAiHBBBEp9K3jmTi+GNFViYUyIZIHQfE8UqgiMDrj0XK3o1+ZNlV0XbAwZOT6XECkUppRgz5JHD KPNUDoqGKqSYLWEvwFtXdANH1dQcCs4Sf4T1+ETRZ1 16El45Hm5kc2/jepXGTr0py/UPdwJECoguZ79h3of0y8EBktZLWddyAG6aFRthXRNZkqce8MhZG2PkX7 Jn0mNJ+uh1TWqOJY5j3CGmxKWNozJOldgNLbhBE8DhXNTNtedCt8oUEJoz4hAbklY7js5wkNdkASqwqL JiSB6J4Mfay4Xp5UEq9KCiXUlJ8r+NOPExgkvLPzji eYxfEj1uQGuSvD1VEHtHriUPX4xYcR7ZOjZSD0kFeMh8SS7C5ZljvGGkSu2a+3k0QCp6EE0a/yzpseR/ Oc3QbFcsg8QG30Y+4nd/2sJSm7DWIzTBIl4u3y/7vqk38mpr//H00dTHtG4qovSb8B++/fZXHz7+zdvf f/7x1/iQyps+n/ry55+O015WS0ssFM89+AOtu1e8+a 9/NehxopguZ76/1iY/P+Yc+Px333/z67fvf/ndp88/fXj7+sPPv/zi86/evv/ea5t8sJnul8//pP/s7e 9y12xky/ztgo8eCu00+fsph973/hPTRpBMjzkc2a3NkjwolthoU74+8/13bx9/8etPv/a4C8lkoihrJ/ vHLz/02hrf4t429gYGiqd28vlvz/z03V/4eMnr/8df dMxj8Zdag/7l5x8//Pzt/vLbhy/+/f6yb3fgph3K7wf7Ddvh2/g8BEGM5h0PKv2++PrzT99//PD23fe/ /Ec8vn6366dyQ96/9fnHOPlXH/77h+/eXj/sle53q6565e7/uOj2jkL900x+wknvaOE+6Rd/+uO//P7P f/jhd2///J9vv/zxn2nYUh69/Ku/ckn599/z9vPPv/ nyw1dv//Tfiv/TX7/96Y9v/af1+mn8b/6Z+Oxckb389/+tq2UyWsfX/Q9/+Om/8gfZudES8zS/4VfA6/ 3+69Wh3Ij/PeBkyD4w/l61usfmQUGuIt7ezdGZBDwtyM1XAH8KH/bFa/y+XT/urhCzuT/w8Yd/+eHPf4 7e+bkl8u7q/urLn7/6+btff/tcp7kDM6X5tsnWZ//s /mJ27Pv+5tdjQ/oZlz/4XZ7lzYADGZdHQFku2Lw//PHf//btz7/59x/vbo51Q1gUlDo9E6/jjcDle8K8 arw7Qr8y46im//jvP/z5f//mX//C6Xen/gTGf2DaAn89Oy/h43dvv/uP18X//k9//HA9o9Ihp20wRjmF H3z87P50+m3k5g1HkKmWt8bBlNf55P2w/cf3W98F0a /I04JdKf/y9/VdYruDm1z9bzw22/yfH/5mf73h91+z8pOff/rhC6l2eWj2V+PtP//8T3/9o0/venetian blind tape cutter+Lr3/ slre60qAV/+M1//PY3//b73/zxR9/dBB6g14/88fefGVOuf/3n//rdpws//ulPf/jsej3/+48+stv71Z 9++1j6aVUJH5ZXcGFGI/z2f/0z0427MsBxbiHhLiR8 0WdDzkOf/bd/w9095986yV/+7r/+LRRW0pXdr/07uj542fte+n3v+/9/5O2Ajqn216aw/G3w4lzhy/7l 1p41LIaqK0P5x/tw3/L70rMRE88GvmePnJ3Ufbtltq4l33NfPi0+i3s/Dn/+xRfffv/Q51RdV5t3zBn2 jf1/RW0JjdiribRfrBBkDS3FRR5ms4RsCeP1SSSch2 EjZMrkXBw9hSBbPMgscsZbj1EbtuhoE8Bel6RlVrShXPFuQuJmGph5OJUkDsS5oHGsCeGyFUArK0XkPZ JfRzI7LuCsRPHRZI7MVZRwpgYpOgZnMHN+IfBaXK5omkslSISkn7WmEIikCNixTXNbX4I2nOijZGNiW8 XddK04JTKtL2NbjwB1LZW4NZBpZuZyNUIsmKMvPOQd IFI+UmVsCX8okvymNYBrj8WiOXxzTIN0hH7tNSfJTANIGCvGLOtwNcN3v17bryKBRXLgWUKwKP3GciVd yTddvqXvyYOeFMH3MuCjNXV8TdMjPCB0OWTZZLRwEXJyWADmMTOwS3EoyFelKRwDTWYXHSbQBYdkFnYf q7Q2AROzsjWJJ33TEHBuNDaLPnnwESCoYLNeJuoeG2 C6BbimF8ZbRJ2RX7PgWBCbIHTPIECymcExBS7OjsYimO8bBMrOEPSWVAfKCUxgTiI2t11jveAITLRdDI GyQRwiVTOpQIQnQONxNZMsAFSoKTNsDBIzRS3XH3OoIVXxWGNGZXV2u6KoAXXhjaxubhksHm1cvfJiCw o+CvihBXZqj5MyIJeuQ7Q3bHNdO8JtA5RxEM7GlRQn EEbnYGJoSTKgMWCgN335xaVjET9+HW2gd4TxQnwuMKXLHNPvFCCwDOLeJNP3XwPcATSwBJJjHKIaDhL5 FwXzPwZFEHFcADD5TQY6YdFlHBVqASYuHDbvBSBxUED1BQR9ZBHiDATiBK2yKhKhHGLlGta6JYErMZGf VQPjrvTRZPOyDYWdKPHeLRB6QRDvHQVwYTjjRNChSS CyXXO7BNNkCARfEU1zGhHgGOZpGNIoXdbdLGBoUGUjkjXXIPQlLNAtLOI9GrZaUQDvWQTfTKitSZEuVU LpImf1OIMmBYXnYV3xBaIkRFLaPLH2JXzaASUrEQQeayNPBZMoIDCnCTMgTrVtKWAnMHFfPJunBALnJH FoEkPhEOPiJUXgYT1sSgYgOANrTYC3QVFzSCGoBJMe fkGMCYYpANHcMFf5UDQoDDAlUYZoMWfkUVGxIBYwTZG8BPCgDALeSS9uAyLkGODySPQpEBZoWNIhNQTf bpDWKUIfMDQvKWG1DIAzQOKoCIPySQtyPRWoWHKmLgv7ENJtQQZwPY0zZjDlWGJeZDW6RLMyCUBmDPTl hwTVMFOjGXK4IleqQNZbPHTmWUOgQRxhWPWaFMXjPw C1YQLrVJFzSH7hAcXgSRQcTMD5UsXuZWZcTOIemmGRSTDnRBYgKME2MlCpPNZoLQOoVYyyQTMbZNLoMR VcKMN0YUU6LZJdJaPtKNgvVHRSWQgNG3DxxyYdVaKYU0xuSg8kGePhZTBOO4Snp6VzDAMdMLOCTl4+Cn X1GGL0jSEqMan9YXIbBebrXHEYYn== ID Date Data Source [id number] 03/08/2020 08:37:13 AM EDT [facility] Name Value Range Interpretation Code Description Data Fide rce(s) Supporting Document(s) Leukocytes [#/volume] in Blood by Automated count 6.5 10*3/uL 4-10 [facility] Erythrocytes [#/volume] in Blood by Automated count 2.10 10*6/uL 4.6- 6.1 L [facility] Hemoglobin [Mass/volume] in Blood 6.3 g/dL 13.5-18 L [facility] Hematocrit [Volume Fraction] of Blood by Automated count 18.7 % 4 1-53 [facility] Called to and read back by MANAN IGLESIAS RN AT 5B AT 0836 BY 1590 Erythrocyte mean corpuscular volume [Entitic volume] by Auto mated count 89.0 fL 80-96 [facility] Erythrocyte mean corpuscular hemoglobin [Entitic mass] by Automated count 30.0 pg 27-33 [facility] Erythrocyte mean corpuscular hemoglobin concentration [Mass/volume] by Automated count 33.7 g/[facility].0[facility] width [Ratio] by Automated count 16.7 % 11.5-14.5 H [facility] Platelets [#/volume] in Blood by Automated count 163 10*3/uL 150-400 [facility] ID Date Data Source [id number] 03/08/2020 08:45:34 AM [facility] Value Range Interpretation Code Description Data Fide rce(s) Supporting Document(s) Bicarbonate [Moles/volume] in Serum 22 mmol/L 22-29 [facility] Chloride [Moles/volume] in Serum or Plasma 101 mmol/L 98-107 [facility] Creatinine [Mass/volume] in Serum or Plasma 3.56 mg/dL 0.70-1.20 H [facility] Glucose [Mass/volume] in Serum or Plasma 121 mg/dL 70-140 [facility] Potassium [Moles/volume] in Serum or Plasma 4.4 mmol/L 3.4-5.1 [facility] Sodium [Moles/volume] in Serum or Plasma 137 mmol/L 136-145 [facility] Urea nitrogen [Mass/volume] in Serum or Plasma 111 mg/dL 8-23 H [facility] Confirmed Anion gap 3 in Serum or Plasma 14 mmol/L 8-15 [facility] Osmolality of Serum or Plasma by calculation 323 mosm/kg 275-300 H [facility] Creatinine/Urea nitrogen [Mass Ratio] in Serum or Plasma 33 [facility] Calcium [Mass/volume] in Serum or Plasma 7.1 mg/dL 8.8-10.2 L [facility] Glomerular filtration rate/1.73 sq M pre dicted among non-blacks [Volume Rate/Area] in Serum or Plasma by Creatinine-based formula (MDRD) 16 mL/min/1.73m2 >60 L [facility] Glomerular filtration rate/1.73 sq M pre dicted among blacks [Volume Rate/Area] in Serum or Plasma by Creatinine-based formula (MDRD) 19 mL/min/1.73m2 >60 L [facility] ID Date Data Source [id number] 03/08/2020 08:45:34 AM [facility] Value Range Interpretation Code Description Data Fide rce(s) Supporting Document(s) Troponin T.cardiac [Mass/volume] in Serum or Plasma 0.07 ng/mL <0.01 H [facility] ID Date Data Source [id number] 03/08/2020 06:51:17 AM EDT [facility] Name Value Range Interpretation Code Description Data Fide rce(s) Supporting Document(s) Leukocytes [#/volume] in Blood by Automated count 6.8 10*3/uL 4-10 [facility] Erythrocytes [#/volume] in Blood by Automated count 2.17 10*6/uL 4.6- 6.1 L [facility] Hemoglobin [Mass/volume] in Blood 6.5 g/dL 13.5-18 [facility] Hematocrit [Volume Fraction] of Blood by Automated count 19.4 % 4 -53 [facility] No significant change since last result called Erythrocyte mean corpuscular volume [Entitic volume] by Auto mated count 89.4 fL 80-96 [facility] Erythrocyte mean corpuscular hemoglobin [Entitic mass] by Automated count 30.0 pg 27-33 [facility] Erythrocyte mean corpuscular hemoglobin concentration [Mass/volume] by Automated count 33.5 g/dL 32.0-36.0 [facility] Erythrocyte distribution width [Ratio] by Automated count 17.1 % 11.5-14.5 H [facility] Platelets [#/volume] in Blood by Automated count 172 10*3/uL 150-400 [facility] ID Date Data Source [id number] 03/08/2020 12:24:11 AM [facility] Value Range Interpretation Code Description Data Fide rce(s) Supporting Document(s) Troponin T.cardiac [Mass/volume] in Serum or Plasma 0.08 ng/mL <0.01 H [facility] ID Date Data Source [id number] 03/08/2020 12:55:09 AM [facility] Value Range Interpretation Code Description Data Fide rce(s) Supporting Document(s) Leukocytes [#/volume] in Blood by Automated count 6.6 10*3/uL 4-10 [facility] Erythrocytes [#/volume] in Blood by Automated count 2.24 10*6/uL 4.6- 6.1 [facility] Hemoglobin [Mass/volume] in Blood 6.8 g/dL 13.5-18 [facility] Hematocrit [Volume Fraction] of Blood by Automated count 20.3 % 4 -53 [facility] No significant change since last result called Erythrocyte mean corpuscular volume [Entitic volume] by Auto mated count 90.4 fL 80-96 [facility] Erythrocyte mean corpuscular hemoglobin [Entitic mass] by Automated count 30.2 pg 27-33 [facility] Erythrocyte mean corpuscular hemoglobin concentration [Mass/volume] by Automated count 33.4 g/dL 32.0-36.0 [facility] distribution width [Ratio] by Automated count 17.5 % 11.5-14.5 H [facility] Platelets [#/volume] in Blood by Automated count 211 10*3/uL 150-400 [facility] Differential cell count method - Blood [facility] Neutrophils/100 leukocytes in Blood by Automated count 84 % [facility] Lymphocytes/100 leukocytes in Blood by Automated count 15 % [facility] Neutrophils [#/volume] in Blood by Automated count 5.54 10*3/uL 1.8-7 .0 [facility] Lymphocytes [#/volume] in Blood by Automated count 1.00 10*3/uL 1.2-4 .0 L [facility] Variant lymphocytes/100 leukocytes in Blood by Manual count 1 % [facility] Lymphocytes [#/volume] in Blood 0.06 10*3/uL 0 H [facility] Macrocytes [Presence] in Blood by Light microscopy [facility] Anisocytosis [Presence] in Blood by Light microscopy [facility] Poikilocytosis [Presence] in Blood by Light microscopy [facility] Pappenheimer bodies [Presence] in Blood by Light [facility] ID Date Data Source [id number] 03/07/2020 10:07:03 PM [facility] XR CHEST FRONTAL ONLY [id number] RESULTI nterpreted by:HARLAN PortilloROCEDURE INFORMATION: Exam: XR Chest, 1 View Exam date and time: 03/07/2020 9:40 PM Age: 64 years old Clinical indication: Epistaxis; Other: Hypoxia worsening TECHNIQUE: Imaging protocol: XR of the chest Views: 1 view. COMPARISON: CR XR CHEST FRONTAL ONLY [id number] PORTABLE 03/07/2020 7:58 PM FINDINGS: Lungs: Unremarkable. No consolidation. Pleural space: No pleural effusion. No pneumothorax. Heart/Mediastinum: Unremarkable. No cardiomegaly. Bones/joints: Unremarkable. IMPRESSION: No acute infiltrate.THIS DOCUMENT HAS BEEN ELECTR ONICALLY SIGNED BY LORENZO CHARLES MDThis document has been electronically signed by Lorenzo Charles MD on 03/07/2020 10:06 PM Name Value Range Interpretation Code Description Data Fide rce(s) Supporting Document(s) ID Date Data Source [id number] [facility]/07[facility]2020 10:13:[facility] Name Value [facility] Interpretation Code Description Data Fide rce(s) Supporting Document(s) pH of Arterial blood 7.36 7.38-7.44 L [facility] Carbon dioxide [Partial pressure] in Arterial blood 45 mm[Hg] 35-40 H [facility] Oxygen [Partial pressure] in Arterial blood 86 mmHg 95-100 L [facility] Oxygen saturation in Arterial blood 97 % 94-100 [facility] Base excess in Arterial blood by calculation [facility] Carbon dioxide, total [Moles/volume] in Arterial blood 26 mmol/L [facility] Oxygen/Inspired gas setting [Volume Fraction] Ventilator [facility] ID Date Data Source [id number] 03/07/2020 08:22:04 PM EDT [facility] XR CHEST FRONTAL ONLY [id number] RESULTI nterpreted by:Lorenzo Charles [facility] INFORMATION: Exam: XR Chest, 1 View Exam date and time: 03/07/2020 8:01 PM Age: 64 years old Clinical indication: Epistaxis; Other: Aspirating, hypoxia TECHNIQUE: Imaging protocol: XR of the chest Views: 1 view. COMPARISON: DX XR CHEST FRONTAL ONLY [id number] PORTABLE 03/07/2020 1:02 PM FINDINGS: Lungs: Unremarkable. No consolidation. Pleural space: No pleural effusion. No pneumothorax. Heart/Mediastinum: Unremarkable. No cardiomegaly. Bones/joints: Unremarkable. IMPRESSION: No acute infiltrate.THIS DOCUMENT HAS BEEN ELEC TRONICALLY SIGNED BY LORENZO CHARLES MDThis document has been electronically signed by Lorenzo Charles MD on 03/07/2020 8:21 PM Name Value Range Interpretation Code Description Data Fide rce(s) Supporting Document(s) ID Date Data Source [id number] 03/07/2020 05:20:[facility] Name Value Range Interpretation Code Description Data Fide rce(s) Supporting Document(s) [facility] JHIQJa9dHwAHQsDm02/ROXraRQZqu3GjWPphDRm3YEmtHAWpC9HvDGY5qO3gOXL7SJaKGzIuOsWzRSZ9 lbm [file] ICAgICAgICAgICAgICAgICAgICAgICAgICAgICAgIC AgICAgICAgICAgICAgICAgICAgICAgICAgICAgICAgICAgICAgICAgICAgICAgICAgICAgDQogICAgIC AgICAgICAgICAgICAgICAgICAgICAgICAgICAgICAgICAgICAgICAgICAgICAgICAgICAgICAgICAgIC AgICAgICAgICAgICAgICAgICAgICAgICAgICAgICAg ICAgDQogICAgICAgICAgICAgICAgICAgICAgICAgICAgICAgICAgICAgICAgICAgICAgICAgICAgICAg ICAgICAgICAgICAgICAgICAgICAgICAgICAgICAgICAgICAgICAgICAgICAgDQogICAgICAgICAgICAg ICAgICAgICAgICAgICAgICAgICAgICAgICAgICAgIC AgICAgICAgICAgICAgICAgICAgICAgICAgICAgICAgICAgICAgICAgICAgICAgICAgICAgICAgDQogIC AgICAgICAgICAgICAgICAgICAgICAgICAgICAgICAgICAgICAgICAgICAgICAgICAgICAgICAgICAgIC AgICAgICAgICAgICAgICAgICAgICAgICAgICAgICAg ICAgICAgDQogICAgICAgICAgICAgICAgICAgICAgICAgICAgICAgICAgICAgICAgICAgICAgICAgICAg ICAgICAgICAgICAgICAgICAgICAgICAgICAgICAgICAgICAgICAgICAgICAgICAgDQogICAgICAgICAg ICAgICAgICAgICAgICAgICAgICAgICAgICAgICAgIC AgICAgICAgICAgICAgICAgICAgICAgICAgICAgICAgICAgICAgICAgICAgICAgICAgICAgICAgICAgDQ ogICAgICAgICAgICAgICAgICAgICAgICAgICAgICAgICAgICAgICAgICAgICAgICAgICAgICAgICAgIC AgICAgICAgICAgICAgICAgICAgICAgICAgICAgICAg ICAgICAgICAgDQogICAgICAgICAgICAgICAgICAgICAgICAgICAgICAgICAgICAgICAgICAgICAgICAg ICAgICAgICAgICAgICAgICAgICAgICAgICAgICAgICAgICAgICAgICAgICAgICAgICAgDQogICAgICAg ICAgICAgICAgICAgICAgICAgICAgICAgICAgICAgIC AgICAgICAgICAgICAgICAgICAgICAgICAgICAgICAgICAgICAgICAgICAgICAgICAgICAgICAgICAgIC FiIHn8S8fmCZXjPJXwRI1pLWk9Zw8+XUoVOhNnAIK3nsFrgC8TWU7eu8EwZGcrHMEso1MkMDv2RR3ULD TlXFakRC5LFUsktz7SQILfNLKywQLCu0uoPqNoWAT6 VDTeHiffHE3UIJIyO4yiboOtNVAzFCOPBUsrZUQIZIfoSXTXBXXeDIJbFhNrYxIvDSWrFSYaRCNRWQJ5 NHXfZnNbHFfjAM8Ci9CbnKC7OXt+Kf5SWB1vo9HgVWz4EXWaBC6zqs7IDPmNTzMbN9PzuvK7TRW9HZXf Ci5KUHBnEPZvgXR4SFNbVSNNNhRxZ7KotB82BAEDLt 4+JJlnybAvUppNWyF7VVFhk8QgTYo1GC5ZPCHdIKe5xVGsE03kd7JarQFxUxbtUukrvpMAHOXridzomP luGW7zXTJxMX1hGA7iXDHtHYBeJmQlPIGQGX8PYKShIYHboXErJFNaCASAUG3ETSnpXML5VTMkuuZfnF NtEBmpCL2BDGIihhBsQUhlRWUOPKr+Vw9DAN9ma5Jk HEp7NBYhSI6awm0MVRgCAzElV8U1qBPdT2U3NMahWr8GRKEhLTPqYVPgIIJBKQnySR0UOB3tyhR6TR3X oVMxGGQcRDNyvCUyDEp3X46gdIElILssUF5MEJD+Gerardo+Jb3FHNQzDGAhLFZwJjJiVKXAEiTvR6MoU5DM o7ZvF7PbMQ66wIhceeZpHSdmWG5MPL1tFIReYFMXFF 1MoZVqiP1ovxT9MONaEGZNVaEqL52idDZsHNQmYGE0GAJvYd7ZBDHyA1RtljVqgDwaxtAvMTPqSDNSLZ 9HZBconsUdeVBmbNjhZV06eWadXD4YEs6JPrByYO5nck5VmMYlXm5GFND9MN2JCZQvBNWcAFVjEWO9AK LwYhFgJAmmPMIxPPSxPZF0NCDbQKGvCO3PTdSxIQSo SDF3AFNcPLWsCBMjpo3RNDHuTAX0BiO1TrPyKQQsBIJzRXhoVBRqLDUkWZN8OWOqTYJjBG7MMfBlJQKu BHP4SEYtBWFpIQMnmc0JVNIkNOVpKTA5CHEgAPSwYABvJGwhABDsCYD4MPj3BTUwVSTuGM1JJtKrFZIj AKcdFSCmQCKyBDLwpa2BSBZxTWMgROZ9DATvLQMpRG MsKBzuRQTrDFAwNXQaZGMcSPPwPQ1BTaOqPNBxMUS4AYroFDFfLXEcsy1ZGIKzYAMbTQk8EWAcPAJzDT IbMUbcPNFoZGK3Wkq1PWQvHORrCK5IFvJuKSYdWPj9VHJnGAWwDNQyep6HOTGmRRDpHbMgXoDbKTIgAG AiPIjoSIVmADRmSmO5MFWdYXRxFY0KEiVlILVcEiEv LfCfPNVcSNQynh3HJOXjKCQyPSE1UzXkTSOlCGZyKGdhPCWdVTK3YsU9TAPyFHCxNG3XNnGmXXRcLqI1 DiCtIFGlKQNkli0OWBQtXISxFprwMvMnSBJbCOMjQMslPMOfYOF9Ljj9DSRaTKRnKX4ACtVyYYUhDfb3 HsvdQBZcQIDngr2GJXYzMVNvZJF4SiFmMXUsDLCzAZ wdZQHbLYN2SBW4CLEbQOQvPE8FUlMoJQWnOkdbMoAmMBGwBCGrgy6GTNOtWUFsPCOqOsHiVVEpYMBqCI jmYVJcCMVqRaE4YLHjJENkSY7FDzPuMEAsGoR1LcZfCDKpPNSrbv1RWDTjUQAeQQy7AtBjZCRpOGEeGL ijYBMiROMzVAX3NCFhBFGxYO1ERfRuYFZoDII9QlYg FCNjCJPqdz7KZNXpLJW8YvN7XDUqOGDjIWFoIDzrKCSnUHVrGPPlLNHcDPEnJZ5KWkDnJPApLRDjSNay OJGzAIPbdo9VRPOlRCQ2HVHgWtUjSWOvVTHrHLplWRCwOCQ5HYz3HQKuYURgHB7HMoEgBKBiZCBbGbrf LVZiLVFbhs6UGXVqCZD5DDXhDMCpMZTfRTNsANtbFJ CoTWF0YXDsFNRbBSZzQH9LIePlQUYsERo2ZpTkDZXkIMQmty3OPACbROF5IGNhEIPbCNDdNIQkSBauVM JnCOVeCMQkUBHcYBVtPU2JOxBkLXNqZRBcMMXvIUKiIOCigi8HUNNjCFT5PEH2QxTqSWRxDONiXYzpIQ MjLYIdJVNcZCIyHKNcPL4NXcLzJIInAJL1FLDlHCOb KCCxfj5OOKHxKUU6SjVfLQKlFSTnVBTpSJxpCHGeOJVqVOpnMMVwRWJiDL4FSgKtHJHvGEJ7IyVjHNXc HWNukq2MmERmwOsguu4LOOqIAs7AiNnrFFJjXOteVq3hoDN7BJDqJGZEZi6BjwVoDKQmYTJJSDjmPSXn XVLdTwaaTeVkB6V3RkG2QewrAzj4LKA1HSV9URQ2SG N9OeK6DWC6GCFxGLTcYhqxKnJnLFPwCWUsQwE7CZQ8KVw2BEA+RD2qJJq+Ig1Dw0LhpzV5anBtIWf3Yk u3Zi6FRNKHZ1HCFo== ID Date Data Source [id number] 03/07/2020 06:17:22 PM [facility] Name Value Range Interpretation Code Description Data Fide rce(s) Supporting Document(s) ABO and Rh group [Type] in Blood [facility] Blood bank comment [facility] ID Date Data Source [id number] 03/07/2020 05:43:57 PM [facility] Name Value Range Interpretation Code Description Data Fide rce(s) Supporting Document(s) Leukocytes [#/volume] in Blood by Automated count 5.8 10*3/uL 4-10 [facility] Erythrocytes [#/volume] in Blood by Automated count 2.16 10*6/uL 4.6- 6.1 L [facility] Hemoglobin [Mass/volume] in Blood 6.4 g/dL 13.5-18 L [facility] Hematocrit [Volume Fraction] of Blood by Automated count 19.3 % 4 1-53 [facility] Called to and read back by ANG Amaya IN 5B AT 1745 BY 1767 Erythrocyte mean corpuscular volume [Entitic volume] by Auto mated count 89.6 fL 80-96 [facility] Erythrocyte mean corpuscular hemoglobin [Entitic mass] by Automated count 29.8 pg 27-33 [facility] Erythrocyte mean corpuscular hemoglobin concentration [Mass/volume] by Automated count 33.2 g/dL 32.0-36.0 [facility] Erythrocyte distribution width [Ratio] by Automated count 18.4 % 11.5-14.5 H [facility] Platelets [#/volume] in Blood by Automated count 199 10*3/uL 150-400 [facility] ID Date Data Source [id number] 03/07/2020 01:26:38 PM EDT [facility] XR CHEST FRONTAL ONLY [id number] RESULTI nterpreted by:HIMANSHU LeeLINICAL INFORMATION: Shortness of breath and hypoxia status post transfusion.EXAMINATION: X-RAY CHEST FRONTAL ONLY, 03/07/2020 1:04 PM, [id number]: Chest radiograph dated 03/01/2020.FINDINGS/IMPRESSION: 85 degrees portable frontal projection of the chest was obtained.There is interval development of a subtle haziness in the right mid and lower lung field, could be artifactual, however possibility of aeration abnormality cannot be excluded. The remainder of the lungs are normally aerated. No significant pleural effusion or pneumothorax. The cardiomediastinal contour is unchanged in appearance. The visualized osseous structures are unchanged in appearance.This document has been electronically signed by Nuno Abad MD on 03/07/2020 1:24 PM Name Value Range Interpretation Code Description Data Fide rce(s) Supporting Document(s) ID Date Data Source [id number] 03/07/2020 10:52:56 AM EDT [facility] Name Value Range Interpretation Code Description Data Fide rce(s) Supporting Document(s) [facility] INDJQv6oFeWAMbHn75/BOLqeJFQre7PwJHyqIZa9ZSxwXCJjZ2JwLWY5qX0aHBK2PDvABvIoMkQsTJH2 [facility] [file] DECK MECHANIC/gBHiYmPjNkTheISiCrTxJPX3hqKUBdTVMdQYqp OJDwWa3di7ky7Qlmkn3XFf3uP1EdmSW7kz0Xa7G5EpfbV0CZwiMXtxaWlrOL+39QnYORuUZ6C7sbGYAj pYLuwVNaBROkAk1JFYk/+zclP8taJE+TESU1VnqpcFsmWDbq/bLj2Qde1N/eq27NK2Jq8KxEN+kctEtZ Kqgww/pHlmArglHvdVj4c/0E3x0y6q4ZQ4dElcCsCr SBHPrnYQIJFftwl6XbDJRjsq3USJxet75Wo7rLuafdd+RqBGXi3W4QBh1A3tJtvoSVeGBLHIHBN4CcPB ZaqWTbN9dIN7zkKELeUGBIankDbjqy4zFrUTx8gkdLurMXX0LdC/TXnMEBSw8xP2uNUJxygj/FV75P2E XJPDVBT6gf+SxcL4EIPgP8H7SxMTvWd+44jjYhkUYw rg5pB2obtp1uc+S6qr+x5jMa9VbLl+lAyujQr7HhJEUiAT34lvZMfqjWliMhq8C1EEKO99TQduDCoYJU LglcC4cyEyO8MRrDTicnc4mMlC83folUuxpmZbPFHoaWoPB6AxEbZ9Qz/Opd69m+JC7xzz//5GYaULTj N595GTe9RBHJ263GxhBl/RJc6WuvWNj6SQLHU4RsBy OWNsFQXq7uCotYmK2kNdJxUGIcEkEgdCd7UjniuyTM06zEMwrC6BgAdyk9IGjt123+h1g4fo/DfA8WhK epKiYPKjfKOeaGYfAiOY+ssxKMCB5YMWQ3LSPy0IbtphxQnYuG4EjWocptcZ4ZTZDzOJd+AWvuWFOs4f YLWLzZhfV2QwnLUg0JmybZ2RcA7IJPjB158CCeWLM9 nsW9DgSKZRwKATDhCm+YEPewt37mm9p+FrZN3g1uT8N5nnHj91dRnPxaahq6HkjWWvCVVOz81HlOl8wh qDW1GQHlgH0AdQNXUrQ9xYEzYYmSXDj9UvLCoFupCwr/pvKnu+squsGDGaSDlDNEqTu34Vjdoto4MP1P QvEOMUU7KSKKjJNIylYDSKeVSl8THUJlWxf6yN/Rfb [file] OQFRugDTDpL05U99r/trauma therapist/TsRPvvYL5BkiwzXUsB+r [file] GKY37T+PROFESSOR OF MECHANICAL ENGINEERING/7+/IdohCW331c5E0ZtW/VC198sQsncgdDd+y/lW4WIy9TVw8C6KJuMQBfUHGtYEZSzolq5 [file] GIZhGIZhGIZhGIZhGIZhGIZhGIZhGIZhGIZhGIZhGI PyLHVoAPPtOKVzODBkIOLpRYTiWSBiQT0wcNYUcqNLytNUpyPG4uKnHmBKoxHWtiNXmnLNbedY81NFhuS[facility]3wfLsqzr+motDMMwDMMwDMMwDMMwnoFl [file] ICAgICAgICAgICAgICAgICAgICAgICAgICAgICAgIC AgICAgICAgICAgICAgICAgICAgICAgICAgICAgICAgICAgICAgICAgICAgICAgICAgICANCiAgICAgIC AgICAgICAgICAgICAgICAgICAgICAgICAgICAgICAgICAgICAgICAgICAgICAgICAgICAgICAgICAgIC AgICAgICAgICAgICAgICAgICAgICAgICAgICAgICAg ICANCiAgICAgICAgICAgICAgICAgICAgICAgICAgICAgICAgICAgICAgICAgICAgICAgICAgICAgICAg ICAgICAgICAgICAgICAgICAgICAgICAgICAgICAgICAgICAgICAgICAgICANCiAgICAgICAgICAgICAg ICAgICAgICAgICAgICAgICAgICAgICAgICAgICAgIC AgICAgICAgICAgICAgICAgICAgICAgICAgICAgICAgICAgICAgICAgICAgICAgICAgICAgICANCiAgIC AgICAgICAgICAgICAgICAgICAgICAgICAgICAgICAgICAgICAgICAgICAgICAgICAgICAgICAgICAgIC AgICAgICAgICAgICAgICAgICAgICAgICAgICAgICAg ICAgICANCiAgICAgICAgICAgICAgICAgICAgICAgICAgICAgICAgICAgICAgICAgICAgICAgICAgICAg ICAgICAgICAgICAgICAgICAgICAgICAgICAgICAgICAgICAgICAgICAgICAgICANCiAgICAgICAgICAg ICAgICAgICAgICAgICAgICAgICAgICAgICAgICAgIC AgICAgICAgICAgICAgICAgICAgICAgICAgICAgICAgICAgICAgICAgICAgICAgICAgICAgICAgICANCi AgICAgICAgICAgICAgICAgICAgICAgICAgICAgICAgICAgICAgICAgICAgICAgICAgICAgICAgICAgIC AgICAgICAgICAgICAgICAgICAgICAgICAgICAgICAg ICAgICAgICANCiAgICAgICAgICAgICAgICAgICAgICAgICAgICAgICAgICAgICAgICAgICAgICAgICAg ICAgICAgICAgICAgICAgICAgICAgICAgICAgICAgICAgICAgICAgICAgICAgICAgICANCiAgICAgICAg ICAgICAgICAgICAgICAgICAgICAgICAgICAgICAgIC AgICAgICAgICAgICAgICAgICAgICAgICAgICAgICAgICAgICAgICAgICAgICAgICAgICAgICAgICAgIC ANCjw/aHChL0ikbGJmtvZ6Q5ghKl2EPo8ZIK5si6RpECStUOhgjhGjNfgMVbPaOAIhEhqJYxa5CPevAX 3IbFMeN9NeL4CtGCrsZE1CZADbVXDypSLwBVJeQATl SaI7XACoTPgeMS4NmVEgHKhdNVRrESFvJqVvUCQfGFZjUDFoZXTmQIGGGIRvIFRgTcGtKKVhEJKnBDlh GGNQUQP2XZGxOlDwVWKcDHLqDbExKJOHFX6QKgLcB5ImmR31EACgZEc+Du3GWA8tl3LtYGa3ECAlTD3x gr6RKIxSGrXaW8TdciJ9VMLrRXDwUk9KYNQzOIQzvW U2XjJwODEPFbDfI5WeuO27MFBUYi9+MVkdcnWdMrpOEwJuGDHld8IxJQx8SL7IWEJyXBk8xJRzK84gb9 CmdKQzIrltQ4pdGU70SHKTkDWovx0lzwwxHY6AMnJySXWcCM3dZV1pMJGvKFH0CyHaHPMHDY6LCXEnSL MrqQKaCBMsKGTYZA5GWDagSDG9FGYphiFmtEHdXDnz HX6QAVPkjzSjIERcUPQOOPh+Rl6GEL4dt8TnWMd0BoRoBW8abl1PDXvQXhLfO8E7jRWmK4S6IPriSw1C IVIsAHBvMHvrYUAFMZoiIR3TYF3aftY8SS8LiEAdEHRbRDOuhLJyNWz0A07biYMaIIqeIX3NEXV+Gerardo+ Us1STGBzHMZdLPDqVvOqMYZOWfWhL2HsB2VCy3EpD6 KlOV25mLtnmyKwKDnsKX6TKM3tSYNmGSQFKB8SsELqhX8wnxL8LDMwBPPLLuKaH10lpIHsXMViQKIjKE GpYn9VAUFyI1MoekYleTkftpXuDXEnWYFOZY1DDFgfkvHpvWIxuRxnHM98oVupTL5JLt0KJmHxKK7hgc 6TfPPeVy2OCXW4VM9CZLMePBLjJQKnUEV4YSKyHoEt ONqyGSMjSCWsLCC0UUBeLRRnKV5VPvMyCKTnPzZiXQZuAQEhXNOqxl6KECIrUGWmUwB7EiXlGRApUGQi QLwjGZDbXUWhPYC8ASOkNPDrYU8ZQoBcLHNvTJMmGvWpTNJtRNRqck1EBXWyVRQyQDU4HJRvRESlTHWo HWyzWFYnBPL3IGQ1YYZzMROmEF3DOmBwVZSkUKttTb emCRAiQVDehv6YLYDdTZSgNUR6LLWnPJMpDJBtVVowCIUtMMZ4EPX5FMXwCHWhOO5BThAbFBMdOMLhBN ExDUUiAURapa8CEHDhBDMzSvMbWwXsIIPyNCFuQEqwFERuQNY4QFFsQQFoRCMeVL4GBwJkNUMmDGY7WG uqCCFsOTKesj7CKIJsWDJkKPUaBwWkPHFxBTGxYIcj WSPdFLD7QgF0HGHzYBKuKP3LQzEdZSGxENa1TFFgETLbGLUdtz0XJLZuRRXqOEB1CtSySHOzVLElLSmd MGEsFDGxVhi4GTOeODCaYV3QIvChAQMjJgY9GGRsNJFnFHZlkz8INKHmUADqBDw9ZGSzZDWrJGLvCPsk GENkHPX2BNN6LEWjSHJeRB2MVlJlKUYmAxY7GqxkSC GpBEJbev8JTMNoDXTlKJq2ZEXqNYCsRBTwYYraTNHkWDH0ZWF6ESNbOAAgKF0VTgQgQQYdDbckLELmAT IrGTLhis1XPELlIOLlKmWmTRKdKWMlMXAbDFmeNHHoRMS1QUenMUZiEHKjOC8SWcGnBEOvOtooTYOpHR YcGOHrnn5CJOGiUWNrGYH8JzYrYWJsBXGiMQreOFSa KDW6WVGiYWFbKEYjHU6RFmFaAPWwKnj6NoGoWRJoGIGztv6YDFVjWPPmJDgoHnXeTJYhXFPfIDywCRNf LRKsKhg1DPJtFXGqCS2SBaBvMJSuHGD4PRIhHJTgXIHvbe1NOOOdYVK3GSpkVGKxQAPlWDQlGEnqFMOw WUNdWFM5RDPrFLOnZG1RDhAeJIWaSMXqDHPwVPSoXG Eflq6DIERuTRF6GkB8THUwWIOrLABdITkfVMGkUPIzLvJmDLSvBWZeHJ9PApNpGOWxPNP4MzRiNJDhNY Yxhe6PFZAiAXQ6OpocVGRgBMPkDDBqHEtyEKCkBNC9MoP6AGAjXILwCR1VAlTyNZRmFQNcHsEnFPYjWP Jiij2NQRJpRCY8Axz5HTCpFWNrVMTeODzuWRPbSFi2 FHT5HUDfEJBfUS8ESyXdTCCiClD2CvYvKUWdTGPbfg0WMAKmZGB7BghyXdNiXLLpKPRlRXdiDIMlLbK7 VnzfDXGwWUPlAC8XTrLzZNPhXrI6LBNdRZViYHMitk9SYPXsOAIgQiM9PbPhHDYtDTLpUNipCBViIrJ0 UHR9QDUdATUaQD0OJdQpSFSbYwK8ZmHbCKCrUWCmfq 5QoRKdjJvpjs2GTYgGBc1DcFjmANT9EUkhFx6fuZM7NtIpAMICCu0SylQgJFTnFGVNRLlaOWGpITS0DV NrWNH4IOJbVOWhNLTlJPP9TgL3TkjuIkw8RTX6QdY1AdywDMEyQARsDdJuEBGfGBL2UmOtUnDnAAAfNR Q5NDc+JP5dYFo+Uw2Vz6EvlvB7jcIrEGwcPfK4FADCNeBzVY1VICd= ID Date Data Source [id number] 03/07/2020 10:52:46 AM EDT [facility] Name Value Range Interpretation Code Description Data Fide rce(s) Supporting Document(s) Progress Note [facility] AOVNSr2gLqFNKsLx53/VGEkiBCSbq5OqTTwyGZn0BGzmHLVfM3DmFAB8xP4bZLA7ZAfCAnAbCoFtUUM5 lbm [file] AgICAgICAgICAgICAgICAgICAgICAgICAgICAgICAgICAgICAgICAgICAgICAgICAgICAgICAgICAgIC AgICAgICAgICAgICAgICAgICAgICAgICAgICANCiAgICAgICAgICAgICAgICAgICAgICAgICAgICAgIC AgICAgICAgICAgICAgICAgICAgICAgICAgICAgICAg ICAgICAgICAgICAgICAgICAgICAgICAgICAgICAgICAgICAgICANCiAgICAgICAgICAgICAgICAgICAg ICAgICAgICAgICAgICAgICAgICAgICAgICAgICAgICAgICAgICAgICAgICAgICAgICAgICAgICAgICAg ICAgICAgICAgICAgICAgICAgICANCiAgICAgICAgIC AgICAgICAgICAgICAgICAgICAgICAgICAgICAgICAgICAgICAgICAgICAgICAgICAgICAgICAgICAgIC AgICAgICAgICAgICAgICAgICAgICAgICAgICAgICANCiAgICAgICAgICAgICAgICAgICAgICAgICAgIC AgICAgICAgICAgICAgICAgICAgICAgICAgICAgICAg ICAgICAgICAgICAgICAgICAgICAgICAgICAgICAgICAgICAgICAgICANCiAgICAgICAgICAgICAgICAg ICAgICAgICAgICAgICAgICAgICAgICAgICAgICAgICAgICAgICAgICAgICAgICAgICAgICAgICAgICAg ICAgICAgICAgICAgICAgICAgICAgICANCiAgICAgIC AgICAgICAgICAgICAgICAgICAgICAgICAgICAgICAgICAgICAgICAgICAgICAgICAgICAgICAgICAgIC AgICAgICAgICAgICAgICAgICAgICAgICAgICAgICAgICANCiAgICAgICAgICAgICAgICAgICAgICAgIC AgICAgICAgICAgICAgICAgICAgICAgICAgICAgICAg ICAgICAgICAgICAgICAgICAgICAgICAgICAgICAgICAgICAgICAgICAgICANCiAgICAgICAgICAgICAg ICAgICAgICAgICAgICAgICAgICAgICAgICAgICAgICAgICAgICAgICAgICAgICAgICAgICAgICAgICAg ICAgICAgICAgICAgICAgICAgICAgICAgICANCiAgIC AgICAgICAgICAgICAgICAgICAgICAgICAgICAgICAgICAgICAgICAgICAgICAgICAgICAgICAgICAgIC AgICAgICAgICAgICAgICAgICAgICAgICAgICAgICAgICAgICANCjw/sFUiT4umzUWzllK2A9gaRp5GGr 3EEB6er6RsSOXiMJbanzJcYnvYSnMyRBYtQqcEKas3 HRurMA8LrTEiP0QlG0AgXIyvDY0QOJHkMTJguPGvYRYmFWBaMiJ1VCNgECpcFM7RsLNuUHvvGJPdLBTe DnBrVANjZF5SIABwL235lhYuLk9LEq3ACpUrRD0kfg6NACEfYJNmIqbKHga0PKtqLM5SlGUqgOQrQiRm NUJBJnHtK7dip7VpCNhvEDZUPYovYV8Ut2VngYQyPA o+Pm3XQK6cq5TbPXivYoVvEN6blq0WLJlMLyPzX9AoqWcwAOUom2ppDYZpWT6uvKGvLHP3QM5qQQtaSA 0vXp22ZMzfGZnbBi4uRQOtOU7vIB2bRLKqBZVmWoT2WMWJWJ0CHPNrGNHblGCeKLAdWIULBF0VWRziLC O7QLIbwcDczLOyXXflOD9XUMLkhaZqPNEnDGHZOCs+ Um4DKC7gu4KuQBlqWHErNL7yeb7RKPpKBxBkH0B8bAIoG9V3RGblZc7PYHHrKIZwQJJvUZUDUVjgRD3E OZ4lpqC9GL5PeIDmOPKoYIGcyLHuKKb2N89bzXGwUGnjXD0HJVV+Gerardo+Aq4FEGSxMZVwQCDkOwIuFFCR PkPxH7RmE9UMr7DlI4ZaHL09cJptfiUsZXgjXZ9OZX 0cQQZkQBQSVK1RzJGxaN3romXpYxCgPXMHWoXbZ13jxCQmJUYkPTI1JWZfBq3IDDWcW6NruvFjyNklov MoOSBsHGTGGT6NERyprbKbjVXhvPxrZD98ePqbVW5CAm3NDfAgSI4udq0FlIZuFl3BWBFyFL4IMQMlQR QbXRDiHYG7VWEvBcUlFBblRRVuIUQzJNF5PDUoCLXp XV9AQoXoTOGsKHj8VeQpKVTnZKRgqz4MNQRtURJeVXP3AXAiVCNwSIKjJHckSJSvXSHrNUW1YTNiUTFf HO7YIqEsFLRpZGSyFAVqFFXzKSIyhg9BZHRgYFZdDgSbTROyDYBdBMBhFYwdBONvCQC3BQKqOEJbOOVa CP7ISlHhQDZmFKGqHyEvWJJpZSMhuk6LBGDiQAEjIf MyYwUqHBNvCPQsVWchULCjDOQ8SoT0ESObUXCgHX2PYjNaCVAuVMk2PPCyQZJhKQUnyi3PPMYjXBYkWG W0GXCtAVOvHEVyCDnpJIZcNLO7HpSuDKPzVJKhEV8PLnFxJFNoGCz8UIdmHHYuYVYvuy6MCCTaFJYoTG V6HXDnLUDsXDDcPObwBFAvQKSaRub3DRJpKRYmOM6N HjBzBPXpRGK2CfalWKQdJSLjxz9ZGANsIMKyZDkyBWBuAEEfUETlDZv1mcKjtVPlMEz7CT9HM5FwejZs GWdLUn6Og265NSR3QTYfSb6ZX4yeJh9bZZIqTYLXNz1PFEz4J8MeIRqeJCS7D8ZuCqY7LPV4WRL4QfWx KgA7HLmjCOV+PSivWWYpR1HtHGX8KOEzZgNuTYp7ES cjHdE9QRCdQPBqPn7dCZMKWk9+TNtetMGmiPjbFYMWXxLeBOLyHRrnZASBYt3K ID Date Data Source [id number] 03/07/2020 10:17:32 AM EDT [facility] Name Value Range Interpretation Code Description Data Fide e(s) Supporting Document(s) History and Physical [facility] YLMGNp8cRqZCTdIv17/CSQwoGXDrl8IfJPkrZFn3RJxvVQJqN9QzTLQ6pS3gNSN4LTbVAfJrEpQvUAC5 lbm [file] ID Date Data Source [id number] 03/07/2020 09:15:08 AM EDT [facility] Name Value Range Interpretation Code Description Data Fide rce(s) Supporting Document(s) [facility]/RXKypFMFes9NdCDtbLIz0RLneOMTaY9XxJEG6mA7gGBB1LVqIJsKmTrQiYML3 lbm [file] AgICAgICAgICAgICAgICAgICAgICAgICAgICAgICAgICAgICAgICAgICAgICAgICAgICAgICAgICAgIC TeASAaLRYtDIYeOA1WFZNeNENpFTXgMYVhGNNvRKSqXCZxOIAkOZRsPHKoKVFmPKDiRKJiMANlTWKuHD AgICAgICAgICAgICAgICAgICAgICAgICAgICAgICAg DJPyMJYyRXVgAVRrQNVuLIDuWYSnOU3HDDPcLGHtRHNtIEZtUERaZPGnSSCyNPZsDPKtAOWvANShWHDg ICAgICAgICAgICAgICAgICAgICAgICAgICAgICAgICAgICAgICAgICAgICAgICAgICAgICAgICAgICAg XCQlST5WYOZzIMYbRKLpUZGiWMOdHQAfATQhPYYxCB AgICAgICAgICAgICAgICAgICAgICAgICAgICAgICAgICAgICAgICAgICAgICAgICAgICAgICAgICAgIC DqSFVoAGCaKJCvPPOrQE7RUDPhVFOfRMLkHNWjEIZsYYMkSYSqZVKcDBEzYALyHDDhDJKrLCXxESPpXG AgICAgICAgICAgICAgICAgICAgICAgICAgICAgICAg DKVzWSKzQADyENDcFZZnXRJzYGPrYULpDO3LSBEgNIRtNQReDZBfORUdITYjHXCcYGRdFOXmRIIeXVXu ICAgICAgICAgICAgICAgICAgICAgICAgICAgICAgICAgICAgICAgICAgICAgICAgICAgICAgICAgICAg UOPcEHQrQU6XOOIaPNJfPDKxHMJoVAUeZKFkXFTuRK AgICAgICAgICAgICAgICAgICAgICAgICAgICAgICAgICAgICAgICAgICAgICAgICAgICAgICAgICAgIC LqXUNkESEkLEBxJENnFPImBL5AQGDrNPZpYPXoWQQzQSLuXCZeBZMfEKVzMKYjPOGuPIBbVJGpKFCdAF AgICAgICAgICAgICAgICAgICAgICAgICAgICAgICAg OSBpYHGkTEFhLYAcFCBvHJAnFWZeVKJiNEVeCA6GSDVeRKTdPIQxKSDuKXVpSMIgFSMzWCZsPJRsRXYj ICAgICAgICAgICAgICAgICAgICAgICAgICAgICAgICAgICAgICAgICAgICAgICAgICAgICAgICAgICAg WQUvPBVsFFEpAV6SITOtCVZeZDQoLTZtBDHuFTQjHL AgICAgICAgICAgICAgICAgICAgICAgICAgICAgICAgICAgICAgICAgICAgICAgICAgICAgICAgICAgIC PiANKgXCWgAHCqISDqXCLmOOOlGC7XXC83dAXea0B7HREaEM5rwjo/Zu6CXVkruaGyiNRhVW9LFqTkPO 1mkj6TBoMbVI6vib9ZXEuGXdAxM3L7cLNwMVJnPPSO OaTzO41yOQmpVb03RUlbZQFfBySbEKa6Su8NPbWyS3iqXTEzOnD0MVQrKiEfHEemCG3Ym6NgjYOmUSs+ Rq0MPN9qk7SlALpgWCPzWG0zcb0KQPpEZqIpK7BvpiP4TAM3MXFfHo7UDUXlEHFdmCBuGUNhADONOyNq P8FzjM10ZDTAAq3+IGiyieEuJyqFMlD3OAMaf1DyFN v7WC6DNLOxJKo6eXJoQQLfQ3Fpc3HuQd14INPpXfhxEHKizLG0TTGjAqdvryonGh8gPRExTQ3kIH9kWK NhDWN6GvBpTCZDUG1RUMTzXPGmaCSoHSXnMMRUFW6FDVicNGD9VTJlpyBssEPjJNljLF2BYHZxzfHtXM QgMCBSDQo+Gn2UTK5fa3RlPXaeRyChEQ2fkn3AKLtL ZnNnR6C5oDMjK6C6BUddZn7ZMASmVFAsHUWiNRQSCFvrLO0OSV4xgoV8JN5OoUPpOMIuIZVztWWoTYn3 C60bcNBeZThnZK5GZCN+Gerardo+Kj8KPSCsROCwRSUsOvZrCNMRMlZcS5TzU8OXm7ZdI2YbUE91eSydrkOy XGnnSH6DFS0lKLCqIHEINF8RfOMflG9cbqJxWUUaAR KGMbJtH63lgNGaLCKzGYRxVRIcTp5DKFMeS6BekrNdvImvobDxKJArOMHEWZ0QUSesreNhyFBfcWfzXT 65tMknQL4NKc3WTvBgEM0dxz8GbLIsNy2QUCDuUa9YBKJfZKLuFZQaZTP4YIDoHxDwPFalNXDsZLCaHE K3DJUwNRSkKC0AIdQvNHWqPCU6BJOlBXTpRDYbts0M BDJfZMUvFaRuTwBoNDWsORJzKQplWRZbFKRrCDJ0UEAbZTGtYY9UHxAkXAZwJQP6DGVkIHCtDQRmcz7K CKBkILRaAPkiRMJrLZDnKCKvFKjcJUXcKUIwCNS4HLOhUWLtKK0ROdLxOQKvFALaLkTzRVUyXGQskv3Z BMIhRLLgKzV5NNVqIHQqAWQyFMdtBBKdCXM5WcLuHA QhVLOcMQ2BKyMnDLMpVSK0MOLfXTIiIXVboy2WWNKgVBGaADQ4IxOvKLAkXWRaCTuvUAWvJJT7BOp2OH ZwZIVeGZ4ZYuOuUZMuOSW7IiOpLKKcVWEpnk7PRDYqGWZtDoXeJJQtMLSsVEOePGwaBJVdIMC0IxSaBZ XaVVKdGA8URpFpFPiuORCAJlq2VBukN0u7TAKzLz2F T0Mrf0SePQOxOPFMZEqrES0ywbZtBALeRr6FJ1qRMdrxRNJdVDYpHJJ0GKBlHugwWSWeMAQnKZXuZ3Wo XYReTy7iEHFuCLQ0ZKZ8VYEsVjSdNuU4GXE3OMYmBEQmJSU7ULQiMlAxBN6TSl6VUaG1JRE8tZDwXl7S Gkc7Ma5HENHPW3SSPo== ID Date Data Source [id number] 03/11/2020 08:11:22 AM EDT [facility] Name Value Range Interpretation Code Description Data Fide rce(s) Supporting Document(s) ABO and Rh group [Type] in Blood [facility] Blood group antibody screen [Presence] in Serum or Plasma [facility] 03/10/2020,0000Performed at [facility] Otilia saenz [facility], [address] [place] [address] BY 1753 ID Date Data Source [id number] 03/07/2020 08:34:01 AM EDT [facility] Name Value Range Interpretation Code Description Data Fide rce(s) Supporting Document(s) Progress Note [facility] KBTERd8yPiXUQdZx03/MNKsrIYKgd1HpBUdyQKh6RBqsRFGeQ3CfWGF7wE8rGOA4FIpNFhAlOiZeVIU6 lbm [file] ID Date Data Source [id number] 03/07/2020 07:14:58 AM EDT [facility] Name Value Range Interpretation Code Description Data Fide rce(s) Supporting Document(s) Bicarbonate [Moles/volume] in Serum 23 mmol/L -29 [facility] Chloride [Moles/volume] in Serum or Plasma 106 mmol/L 98-107 [facility] Creatinine [Mass/volume] in Serum or Plasma 3.82 mg/dL 0.70-1.20 H [facility] Glucose [Mass/volume] in Serum or Plasma 92 mg/dL 70-140 [facility] Potassium [Moles/volume] in Serum or Plasma 4.5 mmol/L 3.4-5.1 [facility] Sodium [Moles/volume] in Serum or Plasma 145 mmol/L 136-145 [facility] Urea nitrogen [Mass/volume] in Serum or Plasma 97 mg/dL 8-23 H [facility] Anion gap 3 in Serum or Plasma 16 mmol/L 8-15 H [facility] Osmolality of Serum or Plasma by calculation 330 mosm/kg 275-300 H [facility] Creatinine/Urea nitrogen [Mass Ratio] in Serum or Plasma 25 [facility] Calcium [Mass/volume] in Serum or Plasma 7.6 mg/dL 8.8-10.2 L [facility] Glomerular filtration rate/1.73 sq M pre dicted among non-blacks [Volume Rate/Area] in Serum or Plasma by Creatinine-based formula (MDRD) 15 mL/min/1.73m2 >60 L [facility] Glomerular filtration rate/1.73 sq M pre dicted among blacks [Volume Rate/Area] in Serum or Plasma by Creatinine-based formula (MDRD) 18 mL/min/1.73m2 >60 L [facility] ID Date Data Source [id number] 03/07/2020 07:53:00 AM EDT [facility] Name Value Range Interpretation Code Description Data Fide rce(s) Supporting Document(s) Leukocytes [#/volume] in Blood by Automated count 5.3 10*3/uL 4-10 [facility] Erythrocytes [#/volume] in Blood by Automated count 2.31 10*6/uL 4.6- 6.1 L [facility] Hemoglobin [Mass/volume] in Blood 6.8 g/dL 13.5-18 L [facility] Hematocrit [Volume Fraction] of Blood by Automated count 20.5 % 4 1-53 [facility] Called to and read back by HARRIS Cooper ON [address] AT 0750 JRM Erythrocyte mean corpuscular volume [Entitic volume] by Auto mated count 88.7 fL 80-96 [facility] Erythrocyte mean corpuscular hemoglobin [Entitic mass] by Automated count 29.5 pg 27-33 [facility] Erythrocyte mean corpuscular hemoglobin concentration [Mass/volume] by Automated count 33.2 g/dL 32.0-36.0 [facility] width [Ratio] by Automated count 20.1 % 11.5-14.5 [facility] Platelets [#/volume] in Blood by Automated count 199 10*3/uL 150-400 [facility] Differential cell count method - Blood [facility] Neutrophils/100 leukocytes in Blood by Automated count 69 % [facility] Lymphocytes/100 leukocytes in Blood by Automated count 24 % [facility] Monocytes/100 leukocytes in Blood by Automated count 4 % [facility] Eosinophils/100 leukocytes in Blood by Automated count 2 % [facility] Basophils/100 leukocytes in Blood by Automated count 1 % [facility] Neutrophils [#/volume] in Blood by Automated count 3.76 10*3/uL 1.8-7 .0 [facility] Lymphocytes [#/volume] in Blood by Automated count 1.26 10*3/uL 1.2-4 .0 [facility] Monocytes [#/volume] in Blood by Automated count 0.20 10*3/uL 0-0.8 [facility] Eosinophils [#/volume] in Blood by Automated count 0.10 10*3/uL 0-0.5 [facility] Basophils [#/volume] in Blood by Automated count 0.04 10*3/uL 0-0.2 [facility] Nucleated erythrocytes/100 leukocytes [Ratio] in Blood by Automated count 0 /100{WBCs} 0-0 [facility] ID Date Data Source [id number] 03/07/2020 09:55:10 PM EDT [facility] Name Value Range Interpretation Code Description Data Fide rce(s) Supporting Document(s) Natriuretic peptide.B prohormone N-Terminal [Mass/volu me] in Serum or Plasma 4927 pg/mL <125 H [facility] ID Date Data Source [id number] 03/07/2020 02:31:37 AM EDT [facility] Name Value Range Interpretation Code Description Data Fide rce(s) Supporting Document(s) Progress Note [facility] WATXIh9bXmSHUtOm44/ZZYjrKNSpe7MpQYkrAUp0JXpfLUXkB1EmKPQ3yZ2uGAD2UBkBHiNcAzOdCLB6 lbm IkDxiLMfVgARSdQchVJuFrAYqhQxaqnLFeOF9WaCI3SZOqC28bKKRkZEZfE0GsKON6KjE+Sw1TISNmaF CzXW5GFplU6O6bv1b3Jk3aRJ8Age5HScLPSuBQBN8tsY4fdZ3Vmx7ETZ/WCU3HAjBhPOAq/a/7M7dpz7 YFo0i7ddnBxJkZ62ZNfBgKg4+TFIH7e7+Fp6UfXAN9 f/1lUVIyXZK//88Ui7F3b2280F3GP8RRPAG+NX3a7rVRchxr6ZlFEICjbHlBDbL4Xm8RGLdPw5gww5YR n9tn10FNcj8W60W2/LROWOgQXMbkSzeYOC7sGnF2MOC0Mv6nfufUuq4pBzNIwcPSyyl/PQNAp/peG17A ip/BECKlkGACQwpD7+Hmlert6X/PVXwyIR+5blF83P arcadio/K6CdgOYahn7gaSJmHMjPT5fbRNvBPMZlZ1KVQJXh3Y0echRgHYS9f4prvqvE4korDeImROxBp+Lo [file] HqKUwkQUUUIj8L ID Date Data Source [id number] 03/06/2020 11:26:47 PM EDT [facility] Name Value Range Interpretation Code Description Data Fide rce(s) Supporting Document(s) Discharge Summary [facility] WAHJFh2lSxTRKqVx53/HRXfoUBLae9UaIPocJUo0AHxtJWOlQ1TdEFQ1bF4eOHA6DUaJPfDbTjIdMXQ5 lbm [file] ICAgICAgICAgICAgICAgICAgICAgICAgICAgICAgICAgICAgICAgICAgICAgICAgICAgICAgDQogICAg ICAgICAgICAgICAgICAgICAgICAgICAgICAgICAgIC AgICAgICAgICAgICAgICAgICAgICAgICAgICAgICAgICAgICAgICAgICAgICAgICAgICAgICAgICAgIC AgICAgDQogICAgICAgICAgICAgICAgICAgICAgICAgICAgICAgICAgICAgICAgICAgICAgICAgICAgIC AgICAgICAgICAgICAgICAgICAgICAgICAgICAgICAg ICAgICAgICAgICAgICAgDQogICAgICAgICAgICAgICAgICAgICAgICAgICAgICAgICAgICAgICAgICAg ICAgICAgICAgICAgICAgICAgICAgICAgICAgICAgICAgICAgICAgICAgICAgICAgICAgICAgICAgDQog ICAgICAgICAgICAgICAgICAgICAgICAgICAgICAgIC AgICAgICAgICAgICAgICAgICAgICAgICAgICAgICAgICAgICAgICAgICAgICAgICAgICAgICAgICAgIC AgICAgICAgDQogICAgICAgICAgICAgICAgICAgICAgICAgICAgICAgICAgICAgICAgICAgICAgICAgIC AgICAgICAgICAgICAgICAgICAgICAgICAgICAgICAg ICAgICAgICAgICAgICAgICAgDQogICAgICAgICAgICAgICAgICAgICAgICAgICAgICAgICAgICAgICAg ICAgICAgICAgICAgICAgICAgICAgICAgICAgICAgICAgICAgICAgICAgICAgICAgICAgICAgICAgICAg DQogICAgICAgICAgICAgICAgICAgICAgICAgICAgIC AgICAgICAgICAgICAgICAgICAgICAgICAgICAgICAgICAgICAgICAgICAgICAgICAgICAgICAgICAgIC AgICAgICAgICAgDQogICAgICAgICAgICAgICAgICAgICAgICAgICAgICAgICAgICAgICAgICAgICAgIC AgICAgICAgICAgICAgICAgICAgICAgICAgICAgICAg ICAgICAgICAgICAgICAgICAgICAgDQogICAgICAgICAgICAgICAgICAgICAgICAgICAgICAgICAgICAg ICAgICAgICAgICAgICAgICAgICAgICAgICAgICAgICAgICAgICAgICAgICAgICAgICAgICAgICAgICAg VEReSTy8F8zaIBCwGXNtUN6qXHs6Ke2+DQoNCmVuZH A9ryPnzQ8XOK0oo1MyEUyxGXFie2HkWOs4CK4DIILcVEzaHW3HOErcug1JHEEnOACewMTAd5qaJxGaNE Y3WFJuZgtyYK2EULNnZ1lyarCtKCAvPYDWOTspTQKRFCwjTLVVJMHsJSCzWeYeIdAiEGXrEPTqXIATCS A2VLDhMfBxXFvpKB4Gl8LuxRV9OSg+Wm6THS8vx9Ri LOfiUoRwFQ0spp9BLIkOKpLdN8YsupG9GERrVVNiLx4RXJFlUPLfbUFaFvZfXWKBAaXoQ7VdwT27MBTV Cj4+BRjrooPtMtwDCuZzIEZww5ZsVWg6VZ7ZXZIaOJa7iJRqUIrgW4ufvltoUIK1yV2newdkAkttOc4w qTWoXRRuYsyaDF3nrweaAZHnOAQpNQ8pJc3jPNNcXM C1WeZnTJOWKO3ZPYBhDDZouLKaWYLeSOAFUH6IHFlxSYW2AGOavsAoaPTfCZtcGS9EHLOglaVuGsXiZT BSDQo+Be4NIL1pc5GwHPgaPELlOP1tcv6FCPtWByZdL2U2xADqI9J8PLdvVo6JTUUjZYIfIjDzBMTENV bjEP5RTO7zsvH0JU2TtQSdTOLwNAPrkFMjPLf2E77j aORxRHulIB3EKNM+Gerardo+Cf6JLUVqVFFcWGFrJbQaBLLSKyNsO1ZvK8LCn6IcB9VcMF65jBoflmMuAGgr GJ8IJL6wGQZlMNCQHY0CbIUmpY1ahmMeXhSmINOFLsWgV68dmQOrMPItWKXuNNUoRr2MYOHrI2KbsiUd dVvbnrMvBQBeSJAXKN5WBEaahqMdsNGyvSikCY11xR zfJQ6DEj6GAwUaKN1meq5KzGPaIa3KMQLnZV8LINFqREOqHHFsMVI9QBOySdJaAAdsSQAtMOFoNBJ4XO UrYMRdUE7NFdAgEBSaEcCqEfOwGZDqQEEvcc5IMFBkBUCqBHx5YeAlBATrFKKkYHhuKYLxBFYkBSU1KC NbSOJvVC6ZHyXhWUUzAEP6CiOvRRLqNRRnjq5VSOAq CGFjKPL3OYWeBYRfIDCoSWfeBXZnZSL3DxH1NWBlMCPaRB7JYnCsZGAyNAk9GFxbDALmNVNnnq2JKBHc XGHeHrTqZJKoPMQxQMCsYNffHXYcGMBkKkPhTVPsNNXgLZ7CFxHtLNKhQQw6PpTzTUMwCQWfff5MKAFt DAGkKqpsTTVlADCoHLRgLMwpHKJyBWRwDvj7KAQmNJ BmRM8WNtBcHADkObP4ITZdXNGoSBCoqj1MORCuAEGqSgpdRHRhVXCwOGZbZMoePPNkDNVgNXW2OJAgOR UxIU9YPvSkOVKdXbS2XLUvOLOmKJJuth2YFGNiATIvOKcrBFBdCPJpWZMeKFpnKTAlQIE0Phs0COYhQE UtSX5IAcGpMFKrHvU6SpFjEMQnQZEgje1SPETnEAXe QfB6ORCnGLPhULRwGZilEXFqCXM9BUQ8IVDaACKrOE5INeKxOMGzIvqmIHvjGNNnNEAimd8POYLjBOWy ZyCiLlJpKJDtRYEbOUpuUDFgHJI8YMV9OKKnPWEzIW3QCeGiQAPkAxn0BpSlVIFoPPLmpq5MADJgGUEh WFr9NnPnCLKmYORmREpyDEZqPFX6GIG0ARUrNHZkRR 2DFiAkFHXsBaAxAGJjCPTcBUYvxn0RTUFhCZQgJSDiUUZuVQVkQXTxOAdmNMQxMXYoVjHzZCIlBYPdDM 2XVcWfHNQcKcHuFbRaZPLeFVJfza0TTECmDRLjAfP7UHQaEHSmEBNnZGtwRGAsKYBgBsN4ZGUrBDEuMP 0HUuVxRHerRFMICir3EBzpN2m7YMZmAX5TB4Zrq6Wh CwLvDBJSVLgzKI9igmGdKUKbFp6LO0fUOrliSqIcPyPdAPlzQtjmWMipKNG2KIEeU9JuRIPiZKWgJJ8m OWJoN4E2B4KnXGUvGDCaCLSaLJa8SCL2QUXsNAB9VRG5NbGkJR4PUd1UOqA8ZWD1dGDmEa1KXiZ1ANoL ShDqST7AUSg= ID Date Data Source [id number] 03/05/2020 03:33:48 PM EDT [facility] Name Value Range Interpretation Code Description Data Fide rce(s) Supporting Document(s) Consultation [facility] AQGCTy6vSbOUGtEi42/PKZeeRPNnw0EtJOegQNm1UIfhKRUqL4EiNKH1kP9uSEA5OTcROyYkToUeFMN8 lbm [file] ICAgICAgICAgICAgICAgICAgICAgICAgICAgICAgICAgICAgICAgICAgICAgICAgICAgICAgICAgICAg ICAgICAgICAgICAgICAgICAgICAgICANCiAgICAgICAgICAgICAgICAgICAgICAgICAgICAgICAgICAg ICAgICAgICAgICAgICAgICAgICAgICAgICAgICAgIC AgICAgICAgICAgICAgICAgICAgICAgICAgICAgICAgICANCiAgICAgICAgICAgICAgICAgICAgICAgIC AgICAgICAgICAgICAgICAgICAgICAgICAgICAgICAgICAgICAgICAgICAgICAgICAgICAgICAgICAgIC AgICAgICAgICAgICAgICANCiAgICAgICAgICAgICAg ICAgICAgICAgICAgICAgICAgICAgICAgICAgICAgICAgICAgICAgICAgICAgICAgICAgICAgICAgICAg ICAgICAgICAgICAgICAgICAgICAgICAgICANCiAgICAgICAgICAgICAgICAgICAgICAgICAgICAgICAg ICAgICAgICAgICAgICAgICAgICAgICAgICAgICAgIC AgICAgICAgICAgICAgICAgICAgICAgICAgICAgICAgICAgICANCiAgICAgICAgICAgICAgICAgICAgIC AgICAgICAgICAgICAgICAgICAgICAgICAgICAgICAgICAgICAgICAgICAgICAgICAgICAgICAgICAgIC AgICAgICAgICAgICAgICAgICANCiAgICAgICAgICAg ICAgICAgICAgICAgICAgICAgICAgICAgICAgICAgICAgICAgICAgICAgICAgICAgICAgICAgICAgICAg ICAgICAgICAgICAgICAgICAgICAgICAgICAgICANCiAgICAgICAgICAgICAgICAgICAgICAgICAgICAg ICAgICAgICAgICAgICAgICAgICAgICAgICAgICAgIC AgICAgICAgICAgICAgICAgICAgICAgICAgICAgICAgICAgICAgICANCiAgICAgICAgICAgICAgICAgIC AgICAgICAgICAgICAgICAgICAgICAgICAgICAgICAgICAgICAgICAgICAgICAgICAgICAgICAgICAgIC AgICAgICAgICAgICAgICAgICAgICANCiAgICAgICAg ICAgICAgICAgICAgICAgICAgICAgICAgICAgICAgICAgICAgICAgICAgICAgICAgICAgICAgICAgICAg ICAgICAgICAgICAgICAgICAgICAgICAgICAgICAgICANCjw/kMIyV7skxYSjrzZ7P7myIb6CSl1LUU0f u4NbJSZrSJekqmKaQzhXCcGkYTQqMlbUOaj0BSdfUD 3ObWZkE2ZsG5QqZZcaLL5IZJKnMDJpiDNtEPFtHIBtKlQ9OUUjDLmvTN1OmNAyUMuuKYHsEPOjVyGbBR QdGIJhDLZtTZLmKLOBMYSuWYSkMeFnXLOxPQSpEH7UMIVyM572idWoRj5VUw6KDrOqQP1dix4GDwSoPS GtXlvOYmo1GHntMQ6RrAKeeWPnVqBqDJLVCePwU9ls o7RgNgOdAFIKBLmhBN2Cc4UsoBVbTDw+Ov0BER4iw4PnVOcoXbKjHZ6zxs7WVJgKNwRnT1HarMaaXJEx dzJ0rOKhOPB9TJdiuuLxiOYhSVlfvCUlKM7gDDRQSaFZETG9JFOoVsbbMdDrHGAkXnmaToNVPCzIXjNr X7Pfv3TmPkU8XLTbDnSuKUmiPANvZkS5QY55kPvyWK 1THAQdDSHpXS71ULT4PVSfPb2FGu7RRtMfNI3ccx2WVmpbJVZfOgwAXno8PQpjQU7IvLCtC3UojGHlz3 zJUdScU2UKQBNqHPTkOg5WEFNhTbZnQSOwJKxuJN2kBFStIZSAjYfddmF0AJ8BOK1lmcKpNI2QNyGwZp 6jHy4XFnCiR4RmG8KuLETwQOTIFIfiKA9HOGtjDK0u WY5Mc2AXzFZsnD7cnj1WBLUkDDBoAjvbxu2PKodtN1B9dLezFKJyWmPoALLOAPxeKB2GEOInUNK1CRUj SKAdPYAATcEoK24iUZ1PU6Djy62eBaF4FHYtFuZnSQtdDQ22cBljmdAwzPDgtVkxOA3KRt2+DQplbmRv IyvELirtQFBCBoQuVcxTYaKzRWSsRAYhQWDbBjF4Tq KdQj8ZLXDmTQZvFWOtAcAeJQGzXRQpTHkhTAJuLDF3SEY6CQTzAHGjCI0KVbDgZJSzRpt5NTkcNGNnHM Pbai2RXREfCFZqFJP3JrGaQFUnCXQmSIxwFHBmZISsMOV4TUOgZORjDJ3VDnSiJKMxOPNxWKkgHZMnKW Ftnr4PBRKaBEIdLhHhCXQsPDCbAXGdVHkeTBCxKCY3 VxB5ZQLkZNBqXA9HJhQdPKImHVf6IGchVSNfGKYlze3RPUBoGDUgKLi9ZXVeYEXeLQXeLCwmSEXiXEYd TIWeQXBqOMAbTZ9VCcPaFXGhHBUjGebtXPVgXVIbtp1FPTHhNBZrFlA8ARBuVCWxCQPrDVrzKWFyKLU1 QldaKHEnAENqTC2JMfFmPVUrRSuqRNPfCEBtPXBwlk 2TSUPwSXLaLOL8YIRmGENdMXYpYGweOXXdUII0KbW8PNIjJIMjVJ7APmOcZBBcPEs5HDDgTEYjJQFddu 4EVYFjEKIbAQSwGQAcYQHiNEMdPRgmMSSdDMGgKJa2EFLcLYXjWN0ASiYyGUOySfU1PZRhUFZmPXYzwy 6ZPGAzWTWnMQp3ZFXxWEBlABPmDWroHHMcMSZaULF8 PKPgJZJwPD7AMrOkENRwWxPdZHMcGGZqKHPiub5YJFLnNWAoLgQgQMSdMAIxFPOjKYfdLPCgWNXqCgCi IFExJJGiRW7HZdAyYWIlAvMkGkBmGCKxNFJwur2OJXIrVYXyUGP6TVJpELYlLQWrCIckHZTtPWD8WOj3 MTXwABUlME0GDySmVIHrBuU2IfVfOHDiMNXffz6IEN VyBZKgGXT3XWYxDJImCYWzXCbqOZPcJMW1NjZ9BZKwNRXyIK5QXlRxZQBfDvY8KtLzZJXhWUPbda0LRS BrXAGhHdK6ORXaUQLzGLBiSSzpCSHbJVL0KPJ7CUNgJBPhNQ8FQsOlNJVzTer0ZCCdPPXxGXYnym3LLD PqUTIoTYG6HITqPZSpEGPoREo4ldSkyJCpQSd2BJ2M J4UjiwRcWzhBUe7Ni217DJI3LBKzGi7HG4uyLm3sWLSkKNSNXh9CIYb0RODoEXKxDdebSpP2LoLePMMd RjifKdL5TDEmVYHmYsB+VIu6ZQOkPhGrODK3SSz9RZFfVLRuRXKwQvPzNUJdMcY0HG9fEDVYWx8+DQpz mYQxsYgqPUBFNlX7WiXySCiqTGCLRq1O ID Date Data Source [id number] 03/05/2020 01:51:47 PM EDT [facility] Name Value Range Interpretation Code Description Data Fide e(s) Supporting Document(s) Leukocytes [#/volume] in Blood by Automated count 4.1 10*3/uL 4-10 [facility] Erythrocytes [#/volume] in Blood by Automated count 2.61 10*6/uL 4.6- 6.1 L [facility] Hemoglobin [Mass/volume] in Blood 7.7 g/dL 13.5-18 L [facility] Hematocrit [Volume Fraction] of Blood by Automated count 23.1 % 4 1-53 L [facility] Erythrocyte mean corpuscular volume [Entitic volume] by Auto mated count 88.3 fL 80-96 [facility] Erythrocyte mean corpuscular hemoglobin [Entitic mass] by Automated count 29.5 pg 27-33 [facility] Erythrocyte mean corpuscular hemoglobin concentration [Mass/volume] by Automated count 33.4 g/dL 32.0-36.0 [facility] width [Ratio] by Automated count 20.2 % 11.5-14.5 [facility] Platelets [#/volume] in Blood by Automated count 174 10*3/uL 150-400 [facility] Differential cell count method - Blood [facility] Neutrophils/100 leukocytes in Blood by Automated count 86 % [facility] Lymphocytes/100 leukocytes in Blood by Automated count 9 % [facility] Monocytes/100 leukocytes in Blood by Automated count 3 % [facility] Eosinophils/100 leukocytes in Blood by Automated count 1 % [facility] Basophils/100 leukocytes in Blood by Automated count 1 % [facility] Neutrophils [#/volume] in Blood by Automated count 3.56 10*3/uL 1.8-7 .0 [facility] Lymphocytes [#/volume] in Blood by Automated count 0.36 10*3/uL 1.2-4 .0 L [facility] Monocytes [#/volume] in Blood by Automated count 0.14 10*3/uL 0-0.8 [facility] Eosinophils [#/volume] in Blood by Automated count 0.05 10*3/uL 0-0.5 [facility] Basophils [#/volume] in Blood by Automated count 0.03 10*3/uL 0-0.2 [facility] Nucleated erythrocytes/100 leukocytes [Ratio] in Blood by Automated count 0 /100{WBCs} 0-0 [facility] ID Date Data Source [id number] 03/05/2020 02:10:39 PM [facility] Value Range Interpretation Code Description Data Fide rce(s) Supporting Document(s) Prothrombin time (PT) 13.2 s 12.5-14.9 [facility] INR in Platelet poor plasma by Coagulation assay 0.99 [facility] Routine intensity oral anticoagulation I NR is typically 2.0-3.0. Target INR must be clinically individualized. ID Date Data Source [id number] 03/05/2020 12:24:52 PM [facility] Value Range Interpretation Code Description Data Fide rce(s) Supporting Document(s) Glucose [Mass/volume] in Capillary blood by Glucometer 186 mg/dL 70- 140 [facility] ID Date Data Source [id number] 03/05/2020 08:23:47 AM [facility] Value Range Interpretation Code Description Data Fide rce(s) Supporting Document(s) Glucose [Mass/volume] in Capillary blood by Glucometer 96 mg/dL 70- 140 [facility] ID Date Data Source [id number] 03/05/2020 04:45:30 AM EDT [facility] Name Value Range Interpretation Code Description Data Fide rce(s) Supporting Document(s) Bicarbonate [Moles/volume] in Serum 22 mmol/L 22-29 [facility] Chloride [Moles/volume] in Serum or Plasma 98 mmol/L 98-107 [facility] Creatinine [Mass/volume] in Serum or Plasma 3.63 mg/dL 0.70-1.20 [facility] Glucose [Mass/volume] in Serum or Plasma 136 mg/dL 70-140 [facility] Potassium [Moles/volume] in Serum or Plasma 4.2 mmol/L 3.4-5.1 [facility] Sodium [Moles/volume] in Serum or Plasma 135 mmol/L 136-145 [facility] Urea nitrogen [Mass/volume] in Serum or Plasma 75 mg/dL 8-23 [facility] Anion gap 3 in Serum or Plasma 15 mmol/L 8-15 [facility] Osmolality of Serum or Plasma by calculation 304 mosm/kg 275-300 [facility] Creatinine/Urea nitrogen [Mass Ratio] in Serum or Plasma 21 [facility] Calcium [Mass/volume] in Serum or Plasma 8.2 mg/dL 8.8-10.2 L [facility] Glomerular filtration rate/1.73 sq M pre dicted among non-blacks [Volume Rate/Area] in Serum or Plasma by Creatinine-based formula (MDRD) 16 mL/min/1.73m2 >60 L [facility] Glomerular filtration rate/1.73 sq M pre dicted among blacks [Volume Rate/Area] in Serum or Plasma by Creatinine-based formula (MDRD) 19 mL/min/1.73m2 >60 L [facility] ID Date Data Source [id number] [facility] Interpretation Code Description Data Fide rce(s) Supporting Document(s) Leukocytes [#/volume] in Blood by Automated count 3.1 10*3/uL 4-10 [facility] Erythrocytes [#/volume] in Blood by Automated count 2.66 10*6/uL 4.6- 6.1 L [facility] Hemoglobin [Mass/volume] in Blood 7.8 g/dL 13.5-18 L [facility] Hematocrit [Volume Fraction] of Blood by Automated count 23.5 % 4 1-53 [facility] Erythrocyte mean corpuscular volume [Entitic volume] by Auto mated count 88.4 fL 80-96 [facility] Erythrocyte mean corpuscular hemoglobin [Entitic mass] by Automated count 29.3 pg 27-33 [facility] Erythrocyte mean corpuscular hemoglobin concentration [Mass/volume] by Automated count 33.2 g/dL 32.0-36.0 [facility] width [Ratio] by Automated count 19.8 % 11.5-14.5 [facility] Platelets [#/volume] in Blood by Automated count 173 10*3/uL 150-400 [facility] Differential cell count method - Blood [facility] Neutrophils/100 leukocytes in Blood by Automated count 76 % [facility] Lymphocytes/100 leukocytes in Blood by Automated count 19 % [facility] Monocytes/100 leukocytes in Blood by Automated count 3 % [facility] Eosinophils/100 leukocytes in Blood by Automated count 1 % [facility] Basophils/100 leukocytes in Blood by Automated count 1 % [facility] Neutrophils [#/volume] in Blood by Automated count 2.42 10*3/uL 1.8-7 .0 [facility] Lymphocytes [#/volume] in Blood by Automated count 0.59 10*3/uL 1.2-4 .0 L [facility] Monocytes [#/volume] in Blood by Automated count 0.09 10*3/uL 0-0.8 [facility] Eosinophils [#/volume] in Blood by Automated count 0.03 10*3/uL 0-0.5 [facility] Basophils [#/volume] in Blood by Automated count 0.03 10*3/uL 0-0.2 [facility] Nucleated erythrocytes/100 leukocytes [Ratio] in Blood by Automated count 0 /100{WBCs} 0-0 [facility] ID Date Data Source [id number] 03/04/2020 09:24:44 PM T [facility] Name Value Range Interpretation Code Description Data Fide rce(s) Supporting Document(s) Glucose [Mass/volume] in Capillary blood by Glucometer 110 mg/dL 70- 140 [facility] ID Date Data Source [id number] 03/04/2020 06:31:47 PM EDT [facility] NM BONE SCAN IMAGING WHOLE BODY [id number] AL RESULTInterpreted by:Charis Lopez, Gabino Lyles MDINDICATIONPatient with history of melanoma of the nares and prostate cancer presents for evaluation for bony metastasis.TECHNIQUE-Scan region: Anterior and posterior whole body images were acquired.-Spot images: Anterior and posterior Skull, chest, and pelvic images were acquired.-Injected dose: 24.4 mCi Tc-99m MDP.-Injection site: Not specified.-Post-injection imaging delay: 2 hours.COMPARISON PET/CT dated 12/21/2019. FINDINGSMultiple foci of abnormal increased tracer activity noted within the posterior left fifth rib as well as within the third, eighth and 11th thoracic vertebral bodies. These may correspond to sclerotic lesions seen on the prior PET/CT with some degree of increased uptake on that exam. Additional subtle focus of increased activity on the current study within the anterior left third rib is seen and somewhat nonspecific with no prior CT correlate and may represent degenerative or inflammatory changes however metastasis cannot be excluded. Activity at the anterior right fifth and sixth ribs at the costochondral junction likely is inflammatory.Normal physiological tracer activity is seen in addition to foci of tracer activity in bilateral shoulders and knees and ankles likely related to degenerative changes.. IMPRESSION1. Multiple foci of increased activity as described above which may represent metastatic disease within the lateral left fifth rib as well as the third eighth and 11th thoracic vertebral bodies corresponding to lesions with increased uptake on prior PET/CT dated 12/21/2019.2. Subtle focus of increased activity within the anterior left third rib without prior CT correlate which may represent degenerative disease however metastasis cannot be excluded. This document has been electronically signed by Charis Lopez MD on 03/04/2020 6:29 PM Name Value Range Interpretation Code Description Data Fide rce(s) Supporting Document(s) ID Date Data Source [id number] 03/04/2020 05:46:20 PM EDT [facility] Name Value Range Interpretation Code Description Data Fide rce(s) Supporting Document(s) Glucose [Mass/volume] in Capillary blood by Glucometer 179 mg/dL 70- 140 H [facility] ID Date Data Source [id number] 03/04/2020 04:57:30 PM EDT [facility] US RENAL TRANSPLANT [id number] RESULTInt erpreted by:Leilani Nieto MDINDICATION: Follow-up for renal transplant with graft failure.TECHNIQUE: Multiple real-time grayscale, duplex, and color Doppler sonographic images of the transplanted kidney and associated renal vasculature were obtained.COMPARISON: Renal transplant ultrasound 02/18/2017.FINDINGS: The examination is suboptimal due to body habitus. The transplant kidney is located in the right iliac fossa. It measures 13.7 cm in length. Subcentimeter calculi measuring up to 0.5 cm are unchanged. Cystic lesions within the mid to lower p ole measuring up to 1.8 x 1.7 x 1.6 cm and appear new and associated with calcification/septation.The vessels were interrogated with color and duplex Doppler. Resistive indices were measured in several locations and ranged from 0.79 in the lower pole (previously 0.6), 1.00 in the midpole (previously 0.68), and 1.00 in the upper pole (previously 0.8).Peak systolic velocities in the transplanted renal artery were measured in several locations. These ranged from 182.5 cm/sec near the anastomosis, 46.9 cm/sec in the mid region and 56.7 cm/sec near the hilum.Peak systolic velocities along the anastomosed iliac artery were measured in several locations. These ranged from 227.0 cm/sec at the anastomosis, 194.1 cm/sec above the anastomosis and 254.5 cm/sec below the anastomosis.Flow is seen in the renal vein.The bladder is distended with urine, measuring 8.3 x 7.3 x 2.6 cm with a volume of 272 cc.IMPRESSION:1. New cystic lesions in the mid to lower pole of the right lower quadrant transplant kidney, associated with calcification/septation. Consider follow-up with ultrasound in 6 months time for further evaluation with CT or renal mass protocol if GFR permits.2. Increased resistive indices, nonspecific but compatible with the progression of known rejection.3. Subcentimeter calculi measuring up to 0.5 cm. No hydronephrosis.4. Increasing velocities of the right iliac artery at and below the anastomosis, above 200 cm/s, worrisome for iliac artery stenosis. No evidence of transplant renal artery stenosis.This document has been electronically signed by Isauro Reddy MD on 03/04/2020 4:35 PM Name Value Range Interpretation Code Description Data Fide rce(s) Supporting Document(s) ID Date Data Source [id number] [facility] Interpretation Code Description Data Fide rce(s) Supporting Document(s) Glucose [Mass/volume] in Capillary blood by Glucometer 138 mg/dL 70- 140 [facility] ID Date Data Source [id number] 03/04/2020 08:42:07 AM [facility] Name Value Range Interpretation Code Description Data Fide rce(s) Supporting Document(s) Glucose [Mass/volume] in Capillary blood by Glucometer 96 mg/dL 70- 140 [facility] ID Date Data Source [id number] 03/04/2020 02:27:49 AM [facility] Name Value Range Interpretation Code Description Data Fide rce(s) Supporting Document(s) Bicarbonate [Moles/volume] in Serum 21 mmol/L 22-29 L [facility] Chloride [Moles/volume] in Serum or Plasma 99 mmol/L 98-107 [facility] Creatinine [Mass/volume] in Serum or Plasma 4.01 mg/dL 0.70-1.20 H [facility] Glucose [Mass/volume] in Serum or Plasma 149 mg/dL 70-140 H [facility] Potassium [Moles/volume] in Serum or Plasma 4.4 mmol/L 3.4-5.1 [facility] Sodium [Moles/volume] in Serum or Plasma 135 mmol/L 136-145 L [facility] Urea nitrogen [Mass/volume] in Serum or Plasma 77 mg/dL 8-23 H [facility] Anion gap 3 in Serum or Plasma 16 mmol/L 8-15 H [facility] Osmolality of Serum or Plasma by calculation 307 mosm/kg 275-300 H [facility] Creatinine/Urea nitrogen [Mass Ratio] in Serum or Plasma 19 [facility] Calcium [Mass/volume] in Serum or Plasma 7.9 mg/dL 8.8-10.2 L [facility] Glomerular filtration rate/1.73 sq M pre dicted among non-blacks [Volume Rate/Area] in Serum or Plasma by Creatinine-based formula (MDRD) 14 mL/min/1.73m2 >60 L [facility] Glomerular filtration rate/1.73 sq M pre dicted among blacks [Volume Rate/Area] in Serum or Plasma by Creatinine-based formula (MDRD) 17 mL/min/1.73m2 >60 L [facility] ID Date Data Source [id number] 03/03/2020 11:18:53 PM EDT [facility] Name Value Range Interpretation Code Description Data Fide rce(s) Supporting Document(s) Glucose [Mass/volume] in Capillary blood by Glucometer 157 mg/dL 70- 140 H [facility] ID Date Data Source [id number] 03/03/2020 09:15:20 PM EDT [facility] Name Value Range Interpretation Code Description Data Fide rce(s) Supporting Document(s) Consultation [facility] [id number] lbm [file] I78Bm8yHgyRRvYjwtluqtFoE7Mg2kDeX9atSptG [file] jGIsrSdAM/Ovp1269eEw+barrel charrer/R0hRwb9X/AH5zKaqb [file] ogICAgICAgICAgICAgICAgICAgICAgICAgICAgICAgICAgICAgICAgICAgICAgICAgICAgICAgICAgIC AgICAgICAgICAgICAgICAgICAgICAgICAgICAgICAg ICAgICAgICAgDQogICAgICAgICAgICAgICAgICAgICAgICAgICAgICAgICAgICAgICAgICAgICAgICAg ICAgICAgICAgICAgICAgICAgICAgICAgICAgICAgICAgICAgICAgICAgICAgICAgICAgDQogICAgICAg ICAgICAgICAgICAgICAgICAgICAgICAgICAgICAgIC AgICAgICAgICAgICAgICAgICAgICAgICAgICAgICAgICAgICAgICAgICAgICAgICAgICAgICAgICAgIC AgDQogICAgICAgICAgICAgICAgICAgICAgICAgICAgICAgICAgICAgICAgICAgICAgICAgICAgICAgIC AgICAgICAgICAgICAgICAgICAgICAgICAgICAgICAg ICAgICAgICAgICAgDQogICAgICAgICAgICAgICAgICAgICAgICAgICAgICAgICAgICAgICAgICAgICAg ICAgICAgICAgICAgICAgICAgICAgICAgICAgICAgICAgICAgICAgICAgICAgICAgICAgICAgDQogICAg ICAgICAgICAgICAgICAgICAgICAgICAgICAgICAgIC AgICAgICAgICAgICAgICAgICAgICAgICAgICAgICAgICAgICAgICAgICAgICAgICAgICAgICAgICAgIC AgICAgDQogICAgICAgICAgICAgICAgICAgICAgICAgICAgICAgICAgICAgICAgICAgICAgICAgICAgIC AgICAgICAgICAgICAgICAgICAgICAgICAgICAgICAg ICAgICAgICAgICAgICAgDQogICAgICAgICAgICAgICAgICAgICAgICAgICAgICAgICAgICAgICAgICAg ICAgICAgICAgICAgICAgICAgICAgICAgICAgICAgICAgICAgICAgICAgICAgICAgICAgICAgICAgDQog ICAgICAgICAgICAgICAgICAgICAgICAgICAgICAgIC AgICAgICAgICAgICAgICAgICAgICAgICAgICAgICAgICAgICAgICAgICAgICAgICAgICAgICAgICAgIC AgICAgICAgDQogICAgICAgICAgICAgICAgICAgICAgICAgICAgICAgICAgICAgICAgICAgICAgICAgIC AgICAgICAgICAgICAgICAgICAgICAgICAgICAgICAg OCYjCKYlBRRuZOKrUHJmRQUlDPw1P8koPREaLKUfHQ3lLHm2Fm6+EHtGXcQtZHX9piXjkW6RTV5ij1Ta FSgbAAHzz8JpLQn4CB3MMASmANskCF7IECqzou5CNGKzOIKgmBGHf1zvPyOjJLQ2LPRtNmocNG2MINTq J1dtlfPpWSTyQBLAXFexOVKYFRngLMXQJGVgTJAeKk PjUkTqJIDwSA5HOHUcF130wwNwMB9EWq9HKoLzSJ7shu3EAfDiKSIcGucZDlq4AXmiYI0OuFZejRJkDG SlZYZOBwKdI1qse7YtZgOzWKINPNkbJQ5Qq4JkeMTxXXr+Ep2BJD9py0EpQLglYOBaBR2uli2GSUhVSu HbN9IawCpfPIUoikX0kMJlVVH9CX3dgyNaRZAYJTFj aX1awpzoYIUoCJDhIY3hYA2dDATlNIP2ItRiSCDKUG1UNEKwZYDcmOGcKSCnQWDNWF2KYBgoPJH4RNTl ghBrtGQmWUkaBF7LMJUuhoNcMkQoJHNDVCn+Sf9RQU7js0XnPBvyKSHlAY0ynn7TUNhEGbDkM9G4kVZh T9K5CIcyCd0THFEgSYCoAlRxYFKPZWvzIH2DGJ5mnm U9LP9AwBWjUYEpMRBckPSfUOr4R73iaZXxEPzyKM6ZZND+Gerardo+Eb2NENEbJDUqBWOeNzGvWNZKIxQyF3 ReY9MAs1LvE2VtIN63eEydexMhYKjoOM9GKU6lTLQgUMSZOG5HmJVshA7wdcOkXtKeBGRGCaZlP00zcE HtPQHwJHNeQIYnUv7GAGSkE8ZbtpTixPwhgaZhQBKy VUBJGR0GZKbgxnPpzMZcdCbtYN13wFjsOH9RHv9UIyDrEM3ylc6XnQHzWn1PJSWcEy6WMLYsEDQzZUDk GUM8GVImEvLvXIgcHBVdMJThHHI5STMxMYCoSD3ZGkUlTSOjQzU7XFUxVGAlXMDgqr7KXQDaOYOhXUEf WGNbOTFlYTCzOGssTRNfFAZuTKJ1CFFmROCySL5YYy JxRKTbSNZ6CfyxKYJmURDtiz4WJEYfTIAqZowoUhMxBZPxHORfQOdmVOYmMWD9TYH3ESUnRCGzYW7EFa BkLUYdHPNnEkPmOYLeVEQfvn5WLCSfXLPwDPo3BnMdCJZdJXWjWEreLADlCDM9TBZ6JSWkYLQuRO1FJd JjXUIvOHL2MJdpEQVdSXHnzq8JIWAtVFIsIwqpGHYu ICLgWNVrXCqgUKQaIMX8RTx9NZAmFBCyZX5FZkRwPAPzKPKwQRNmTHMlSAYgbp9UWIEeXBXuObE6PVKo QGJfZOSbOMpiJNVpMLD3SvApLQQbHOWxPL6ADjEpFWKjYMM1QcQoVHLhXSBjag1AMOHwJLIdQhJ1IATs OXXpJFKnUZixIKGfAZL9Dtb3YVMtDZYvWI4WNjKnPP QcADl9HOZzOYIjDXGoxj1KLGLaJIFzWDa5ZVKzTFLjPDCpBZboGKWrWIP2ZTIdISTvOAPpRJ0PQtOmNR PpTKqkZhRgDCNwFOTddg9PMEYxZUQfKLXmCSZaPQZfKHCvBIcgQZLfSQSwART4QIOtHGDxMP9LXlGlCR JxPuLiMzRyHQEjUAJaoc4UZBBaOLKqXXT3RMHyCPRb ZQCpBCzzGIBwISRjANGeYVOiREXpQT9SUcXgZPSgAlH8OqLyPYHpORBrwp2DKYObOKTqFrI4CiBcPTJe PSXeYKnoFXAaLMNlORKbLPPqYKRdXP9DHwDlZOSsIoShMhBeNZKnVSUikt0OFJWvXAHoATorIRWvHHKv OMKsNFqdOOPvNJT2Few7ENMvCQDdOH4PNqAmGCKfLx B6GHKiRIOsGDZlmj6LeBQhoYvjpa0PWLcRTx7KgWvjDSH8JIxoWs1geZMpBHDkEOEENe9ToqTqVHHmXX WBNTmgNVDxGIL4JKDmONmiHFSvB7BqZQR3HrRfEQZiGqPlVjn3L4E2AdP8BgVpJKU1BWH5HZGoBDEkCm H8P4Z0DKIjH5MwPcivGzr+WR8sZOx+Ij1Du9DmmhS1alDbILpoVRX3Jz4OTVXQF1DHBt== ID Date Data Source [id number] 03/03/2020 05:32:08 PM EDT [facility] Name Value Range Interpretation Code Description Data Fide rce(s) Supporting Document(s) Consultation [facility] HXQAJy8wYwJFUsXf77/XLQybWYFtv6XqIConLSe0UXrbXKRaJ7UcEWQ6cF1eDIX0KGlGBsBiMgRpCBA8 lbm [file] YrR5Goo2HcN+CP8gGFb+Fr9Wa3VrwxB3ycDnAInhIzncIA1PSKYWU8DBAm== ID Date Data Source [id number] 03/03/2020 05:41:49 PM EDT [facility] Value Range Interpretation Code Description Data Fide rce(s) Supporting Document(s) Glucose [Mass/volume] in Capillary blood by Glucometer 160 mg/dL 70- 140 [facility] ID Date Data Source [id number] [facility] Code Description Data Fide rce(s) Supporting Document(s) Glucose [Mass/volume] in Capillary blood by Glucometer 143 mg/dL 70- 140 [facility] ID Date Data Source [id number] 03/03/2020 10:15:31 AM EDT [facility] Name Value Range Interpretation Code Description Data Fide rce(s) Supporting Document(s) [facility] WQSBRx2sGhCEDlYo17/VTJuuPYNbx9KiDObyLSh8LFxbXEHnL3PcNLM7yM7fHUF2YYhXFfGjXuUsZNQ0 lbm CkUieJWbTiQOEdXjzQSdYqOWptEckxfNHqUE0FxBR0IYPcH33wOSAjVWVgR6WsQTQ2STw+Ey3VKYAtbG VdTK7XOemI1C3ds6iKER8f1K7cbYKopwsjAufRu76pw8ySpBqN3RRIKF+3WwsqsPwY3UNgE79GPBg8N5 gVFUUvy19BvNWTm7d748tQtOB6i19mK1Sc12fKkq// jBJfnd+ov/9NLYYZ/9OJ9c5vZDjtl6SSsXSkfai97PPMr2wmkxgz3wMiOt10rzZtHVcBZ9vE/rPD5+r0 r4gXQr0SQ7pfE+xs3yxnXTtae9f7p7g3t2qxdGioVvkmkfMmkICklYIkk15k7vP+uY8W6FI+lOQU3cHs 64346CNXmNnF2gSBKx37oCxGA6Ok5OhVx4k2eif939 rK2gsD/UDn4/ZfUu3I2xm3N2qtpnh86ZJ73wfI6mtzHBh7pdwkidQt42N/95tCON4Z+JoWlrKB6jzAY6 8Eu3i67vW80JsWoNYMhlYn39lG6CI/D/Ld55u8Lx7ps9z7cu0KPjbp6zMaqUYJKe4P8GSmQrKlniPLyy /jGRuEM+V3z5VeJ9dZ5hKqCe9M3Jnwj5K3M2vHp4U4 kOMk+7ChBjmcVyh57jaGSJ0aPGTpotfIbzE7D2kKbDuutrK9UA/iZXX81jRHSWkzNTScxjsHzuHas20y KuZQ0aApbgMYZBRoKBoNgh/GsCkuE4n0mx8f561l1Itb0v8kL4lDh6/4U86J8zIfqGgA1hxuiBu0ke6P aVejoUNdVi0+a8v7C2ODkvtt+esvb4PRTajPn8zZZn sxLKw6cLsK5+QBusDxxKJLtpWEZICIwxTjw5fu6TVjd1Z+t21NxNVrpOsZyfSVcm1cWZ/NinmK7yGgfq BmXzwN55kFUoYlUScK9cWEXjyx5Bv7iC1dA7T4K0lXLbxBClDOd4T4U3khDAqkAD7r6r/rfWOuJPM9Zi DYHd/s+R5vMTO3PzW6csjkmS2ImX1V2vOc21wgH+L5 +CG8sUTkGmVFzzPziKwlyoiPSW+n/zBnrKnmqecQc0T1gtulorbzki488U9F98Cx+ttA0ccn8giZkwyU m3k54tbjQttTHo+DywM8iSX8fjmQm3Lj8cv06R1aHRx97T9CPlNkOTMNBqScrDGzYdO0DbdyuF28zGoO 6WQZDSMYi/HhgUvnhAoXPYHPFnJH5mNcZCPRvk7K+3 ohMmsxYYHvF/D99d72paVaYM9LX9jVPhGGCen8FhOS00kUPVmqkgKjFiKHrUEZFmntrlIWQPWM9LEcSn UjDRiffXk7V7gAinucL8NUb/CUGXmzIQrCVc2yc7r1n+N1xQ1BR+GLuV7yolIcHhBIdVhNoH3EGz2EL7 aJeWALmK/cXIjcUaof2vIO1DL0a1oV608z8CjpXcwS YMThIdbkom2gMB2/VGHH16U+opgr22UwN2LKwhb9xDOg6b8eCzccRK0FyBwbSnBy0ss6/VwO+5c6d4RM MC6AH/THV6kQA1XBKQ6qp/sdD5bV+3uUy10ivvQjT1sgjLF1Cwb1gE+ITUX3/zVprGsD0WKAkoXaMEOf KhTwf5fWyvGfYuwC1H2qfNxIJOxYVWkqcSlcdqycbf umPnzl+chOykamWNxJSnIE5GeG+K4ujFU2ttrdBM1zzKXR5GH8bxW4fkgsXbYs+MHexgEvjc0qxlYzfm dE1SCpqePfIA33WebaEG2HUDgJohlNmDL4kjAMzzM9SsxLabt9xHHk9R4C2eNP23sVDN1P5O0uA9Na94 MokGjOBIZNvaRNeDaIlZ+ULmxduqMLILGYZnDsJTya [file] +sQFgCL8C/s2/zgqKLz+t894JmR1G61+at02nz [file] ICAgICAgICAgICAgICAgICAgICAgICAgICAgICAgIC AgICAgICAgICAgICAgICAgICAgICAgICAgICAgICAgICAgICAgICAgICAgICAgICAgICAgDQogICAgIC AgICAgICAgICAgICAgICAgICAgICAgICAgICAgICAgICAgICAgICAgICAgICAgICAgICAgICAgICAgIC AgICAgICAgICAgICAgICAgICAgICAgICAgICAgICAg ICAgDQogICAgICAgICAgICAgICAgICAgICAgICAgICAgICAgICAgICAgICAgICAgICAgICAgICAgICAg ICAgICAgICAgICAgICAgICAgICAgICAgICAgICAgICAgICAgICAgICAgICAgDQogICAgICAgICAgICAg ICAgICAgICAgICAgICAgICAgICAgICAgICAgICAgIC AgICAgICAgICAgICAgICAgICAgICAgICAgICAgICAgICAgICAgICAgICAgICAgICAgICAgICAgDQogIC AgICAgICAgICAgICAgICAgICAgICAgICAgICAgICAgICAgICAgICAgICAgICAgICAgICAgICAgICAgIC AgICAgICAgICAgICAgICAgICAgICAgICAgICAgICAg ICAgICAgDQogICAgICAgICAgICAgICAgICAgICAgICAgICAgICAgICAgICAgICAgICAgICAgICAgICAg ICAgICAgICAgICAgICAgICAgICAgICAgICAgICAgICAgICAgICAgICAgICAgICAgDQogICAgICAgICAg ICAgICAgICAgICAgICAgICAgICAgICAgICAgICAgIC AgICAgICAgICAgICAgICAgICAgICAgICAgICAgICAgICAgICAgICAgICAgICAgICAgICAgICAgICAgDQ ogICAgICAgICAgICAgICAgICAgICAgICAgICAgICAgICAgICAgICAgICAgICAgICAgICAgICAgICAgIC AgICAgICAgICAgICAgICAgICAgICAgICAgICAgICAg ICAgICAgICAgDQogICAgICAgICAgICAgICAgICAgICAgICAgICAgICAgICAgICAgICAgICAgICAgICAg ICAgICAgICAgICAgICAgICAgICAgICAgICAgICAgICAgICAgICAgICAgICAgICAgICAgDQogICAgICAg ICAgICAgICAgICAgICAgICAgICAgICAgICAgICAgIC AgICAgICAgICAgICAgICAgICAgICAgICAgICAgICAgICAgICAgICAgICAgICAgICAgICAgICAgICAgIC ZbDXi7H1zdCVHgPFFbWO4aPOq5Yd8+UWtQHqJeHUZ5ykDvmF5XOU2vs0MvAGxzXEUhs5JpRPk6VQ9JUG AdVRypUP9ZCNsaxn0UCOZjLTCpkIQAn1crPrPaTRE4 YFMpPztlBK2JOGEyL5uqzqJaDEWgVHXNLUioCDNUDFqmCRKKZQDeSPXmAnGkVuLlXJCtBTIfZUBYSGS0 MWBsGcCmTLrfJH9Rl4OtjLB0NOf+Tr7AAA1le3MkLMhbOaAjSL3cix6DZTtTBvInL9LhpsT6XAM1JIPt Hs6TGDBsFKSwpPYaXVGhZJHDMpYmU3HntC57ITWTPf 4+JZssttWsThbPJkB0CEQna9ZiIPk2VY5YYGAqDXc1uOHuZ37be3RjxDAtOnjkEIHzxQzgQRXIQGMkfS aqHR9qJMPaYS6cCv0wCRCxAWIzYgW4GKKKYZ6UDTMbYNKmiKAoFWVlYZYGMU7IJTebUAW4DRIewmDkuB FaLJldYJ0WEUKmyvKhRdzvXAKVGPh+Gb6DAG3ql0Tb REwxMNZhNE8fkc4AVGwYRdUuF4Z7aGLuT0Y3HNqqTd3JIBRuZNJyVfYlVKBIYPdsVO7WAA3mrwV1HE8P jPEjHHUhTXMxvXYxWAh6N33twKCpUXdyGS3VVFV+Gerardo+Ck1MDQJkQYMaUHSwAwWcOTWQXaBxW6VpB8LR u9UvD1QvTZ52rImtxjXpWUnvNO0WUJ3wEYZtFDAYJW 6NtBCsbC0hwjSxYtZuTFEYByQvQ02eqFGwWFClJGR4XYMfMn2PWCIxQ3PbmtPyrYzjgsJtIRDaICZUMS 2NUJhqfnEihUHinWkmWX68dZiqAL5OKe1OZnAjOD6srr8BqTEwOj1WKMC7NU8WMEZoHHWeKXXoLZW7XI ShKjZiGIrzKWMbNVOvVYS9PLGtMWHiTV6NAgStALTw KmZbWOUbTFVyAYNlat8MXZYxRNEuTOWrXjSmPSXuSDVwDWcwARMeTEEpVEQ1IGEsPOLrIT0QUnGuNEUb EGBuRupyCFVpKHWqov9VJJAnAPKlKWQsTUEbCOAeMGWfBApwWGQmSJA2UHS9LMQaFROwCY1LJkEkPFTu OKx4JcXhTSHsFIMtsb8ARZViFCWqTSMcOKQwZUVaAD GfCXgwJPZmJHLdOrW2DMUaRXYrTP4ECeUkOLNcLXS7FPzdGHMlLETzwr2GPRPfDPPyGyb1YBMaHHKaAC AyCVqkMQSmWKK5FiYiEZHzHWKfJT6IKjDpAYUdJSP0CBpuWFPpUNNnlh1CAVYdJAVeDwA7NEMrWDOqKW XiTVufOELbVWL1Iso6FCGkIQCvMZ8XOiOpBHCqOAf7 BMrmBHXvATFiyi0RHHMpIIUkRLflFiYlUWEwQSGaJMijMDMdAFU6HnyuXCCeUEKwKV4EIiIqEAJeYXb8 GARlCHWrRPMwae4KXMGnHWGmCSD6XwWqCPYtWLDsESvpXOWqSOGxOMWwOXUySYFlCC9DGoEuZQHyWlId JoWsOYZnYHDvhk0LTCMwRQPsNQOeQjVkJYWdBIHeRN tqFHYpUCGpSscaPTTvASUnVB1CIyUqQVKqHoN8KcezMKJsXLTucn2CLYTuRQJxWho0FzSrITLbWFBpZR fvICJqBCF8DYK3SCXdRFIvEU9ZVdErMLTsQzF9AWAlINTzHBAvdn3ZRVJtIHHqJMP7OVOfQVKvLKCnCK vmPCToPWM1KTAyPZDtDDCnIG5BWsOlBVRgHvEdHHnj KJXqVJBeos6XISWqOHLgXYk5PiJoCLGrZLHiHLfwREFjBZP9JYbaNEUbPYHrXO7IGdFaHTSjQrAfFZbb ZBRuWPGaos0DOGOjDFBoUre5TcPkZSSjMLVsRAqsBPXjNNU6PfaqUHQaVBDsST6BYfLkXDReOfgiEEDr CJZtLAXrhu5WRPFlIEGaJIO5KoLmRBEzGIRmWGe3dl FjqZFgZFt3LD0VJ9WkliGoUYRRSy2Cp611IED7FCWkBy7IQ8ywSp6sCQWuDARBZd5KDWm5DUW1GCA0UE KuSCMvHZT4YZA0Y9K5KXBeTeKqKTBdUbH+IJaqWUcmTPOiDMU5PaDdFOA8IYvkIIqrHHX5NMUdYjL8XW 3vFTVQMt7+XIjebDHvoHsdOJUXHkV7TcW8DXagCODDSf7H ID Date Data Source [id number] 03/03/2020 08:23:46 AM [facility] Name Value Range Interpretation Code Description Data Fide rce(s) Supporting Document(s) Glucose [Mass/volume] in Capillary blood by Glucometer 130 mg/dL 70- 140 [facility] ID Date Data Source [id number] 03/03/2020 12:34:55 AM [facility] Name Value Range Interpretation Code Description Data Fide rce(s) Supporting Document(s) Leukocytes [#/volume] in Blood by Automated count 4.2 10*3/uL 4-10 [facility] Erythrocytes [#/volume] in Blood by Automated count 2.75 10*6/uL 4.6- 6.1 [facility] Hemoglobin [Mass/volume] in Blood 8.1 g/dL 13.5-18 [facility] Hematocrit [Volume Fraction] of Blood by Automated count 24.3 % 4 1-53 [facility] Erythrocyte mean corpuscular volume [Entitic volume] by Auto mated count 88.4 fL 80-96 [facility] Erythrocyte mean corpuscular hemoglobin [Entitic mass] by Automated count 29.4 pg 27-33 [facility] Erythrocyte mean corpuscular hemoglobin concentration [Mass/volume] by Automated count 33.3 g/[facility].0[facility] width [Ratio] by Automated count 19.2 % 11.5-14.5 [facility] Platelets [#/volume] in Blood by Automated count 149 10*3/uL 150-400 [facility] Differential cell count method - Blood [facility] Neutrophils/100 leukocytes in Blood by Automated count 90 % [facility] Lymphocytes/100 leukocytes in Blood by Automated count 8 % [facility] Monocytes/100 leukocytes in Blood by Automated count 2 % [facility] Eosinophils/100 leukocytes in Blood by Automated count 0 % [facility] Basophils/100 leukocytes in Blood by Automated count 0 % [facility] Neutrophils [#/volume] in Blood by Automated count 3.73 10*3/uL 1.8-7 .0 [facility] Lymphocytes [#/volume] in Blood by Automated count 0.32 10*3/uL 1.2-4 .0 [facility] Monocytes [#/volume] in Blood by Automated count 0.10 10*3/uL 0-0.8 [facility] Eosinophils [#/volume] in Blood by Automated count 0.01 10*3/uL 0-0.5 [facility] Basophils [#/volume] in Blood by Automated count 0.01 10*3/uL 0-0.2 [facility] Nucleated erythrocytes/100 leukocytes [Ratio] in Blood by Automated count 0 /100{WBCs} 0-0 [facility] ID Date Data Source [id number] 03/03/2020 12:55:31 AM [facility] Name Value Range Interpretation Code Description Data Fide rce(s) Supporting Document(s) Creatine kinase [Enzymatic activity/volume] in Serum or Plasma 86 U /L 20-200 [facility] ID Date Data Source [id number] 03/03/2020 12:55:31 AM [facility] Name Value Range Interpretation Code Description Data Fide rce(s) Supporting Document(s) Bicarbonate [Moles/volume] in Serum 20 mmol/L 22-29 [facility] Chloride [Moles/volume] in Serum or Plasma 100 mmol/L 98-107 [facility] Creatinine [Mass/volume] in Serum or Plasma 4.05 mg/dL 0.70-1.20 [facility] Glucose [Mass/volume] in Serum or Plasma 186 mg/dL 70-140 [facility] Potassium [Moles/volume] in Serum or Plasma 4.4 mmol/L 3.4-5.1 [facility] Sodium [Moles/volume] in Serum or Plasma 137 mmol/L 136-145 [facility] Urea nitrogen [Mass/volume] in Serum or Plasma 75 mg/dL 8-23 [facility] Anion gap 3 in Serum or Plasma 18 mmol/L 8-15 [facility] Osmolality of Serum or Plasma by calculation 312 mosm/kg 275-300 [facility] Creatinine/Urea nitrogen [Mass Ratio] in Serum or Plasma 19 [facility] Calcium [Mass/volume] in Serum or Plasma 7.5 mg/dL 8.8-10.2 [facility] Glomerular filtration rate/1.73 sq M pre dicted among non-blacks [Volume Rate/Area] in Serum or Plasma by Creatinine-based formula (MDRD) 14 mL/min/1.73m2 >60 [facility] Glomerular filtration rate/1.73 sq M pre dicted among blacks [Volume Rate/Area] in Serum or Plasma by Creatinine-based formula (MDRD) 16 mL/min/1.73m2 >60 [facility] ID Date Data Source [id number] 03/02/2020 10:46:35 PM EDT [facility] Name Value Range Interpretation Code Description Data Fide rce(s) Supporting Document(s) History and Physical [facility] YFBAXo9cZfUGOhSa02/GFDkeDOVsj9JxKWiaAUl9YUesMBEoO6EjBAG4dX4iUDZ5DKoGPjMbHwVcLFK7 lbm [file] E+DQogICAgICAgICAgICAgICAgICAgICAgICAgICAgICAgICAgICAgICAgICAgICAgICAgICAgICAgIC AgICAgICAgICAgICAgICAgICAgICAgICAgICAgICAg ICAgICAgICAgICAgDQogICAgICAgICAgICAgICAgICAgICAgICAgICAgICAgICAgICAgICAgICAgICAg ICAgICAgICAgICAgICAgICAgICAgICAgICAgICAgICAgICAgICAgICAgICAgICAgICAgICAgDQogICAg ICAgICAgICAgICAgICAgICAgICAgICAgICAgICAgIC AgICAgICAgICAgICAgICAgICAgICAgICAgICAgICAgICAgICAgICAgICAgICAgICAgICAgICAgICAgIC AgICAgDQogICAgICAgICAgICAgICAgICAgICAgICAgICAgICAgICAgICAgICAgICAgICAgICAgICAgIC AgICAgICAgICAgICAgICAgICAgICAgICAgICAgICAg ICAgICAgICAgICAgICAgDQogICAgICAgICAgICAgICAgICAgICAgICAgICAgICAgICAgICAgICAgICAg ICAgICAgICAgICAgICAgICAgICAgICAgICAgICAgICAgICAgICAgICAgICAgICAgICAgICAgICAgDQog ICAgICAgICAgICAgICAgICAgICAgICAgICAgICAgIC AgICAgICAgICAgICAgICAgICAgICAgICAgICAgICAgICAgICAgICAgICAgICAgICAgICAgICAgICAgIC AgICAgICAgDQogICAgICAgICAgICAgICAgICAgICAgICAgICAgICAgICAgICAgICAgICAgICAgICAgIC AgICAgICAgICAgICAgICAgICAgICAgICAgICAgICAg ICAgICAgICAgICAgICAgICAgDQogICAgICAgICAgICAgICAgICAgICAgICAgICAgICAgICAgICAgICAg ICAgICAgICAgICAgICAgICAgICAgICAgICAgICAgICAgICAgICAgICAgICAgICAgICAgICAgICAgICAg DQogICAgICAgICAgICAgICAgICAgICAgICAgICAgIC AgICAgICAgICAgICAgICAgICAgICAgICAgICAgICAgICAgICAgICAgICAgICAgICAgICAgICAgICAgIC AgICAgICAgICAgDQogICAgICAgICAgICAgICAgICAgICAgICAgICAgICAgICAgICAgICAgICAgICAgIC AgICAgICAgICAgICAgICAgICAgICAgICAgICAgICAg LUGwAOAyWURaLUPzBQYiWKLeFTGkOYi0T9syASUpQJUlRY6wFHf9Us5+LNtEAfGuNOH5jhZnyN7QBQ0c s9OcEDyeXUAjb7ImIJd4HX3SUCEvDVijLP7RGLcngi2OYLYlQOEvrUZEy6bzWrGiUMZ6BWElBtdwUM3O JEQeE3mxpoJpPTBkVANPGQksKKQSQHdoRMIODVAhXZ BfZuAjApZuVTRnPUIcQTJZYF5GPmLcH4OxaV94ASPVQp8+RLvraqLoBxhFGoL3FJTzw6UiVCr0FR8JDO DfZqkfj3XdGzFaDCSTLLrqXQ9RSWW5RLX2NIRsDj4JUPAvK612htBxCN6UDw6GNrTnOJ0rcq2SFqVxXL BfQldMUom8APdbUR7PyZFmZUrCVqWtWokrQBImLP5x XPWnMuQAASjldzliMPFfOZKsBP3rLp7eMDZjHBQ7OdVgUKWHKY1KTMGjNRCnqSLbKQSdBFBIVB5KYBei AGR2WTSpieNdaHBaHMxzPT8DZRCfwvCfZgYlDHMKXVc+Tt9HXU4pr0IiPLbuNaUzGH0hkt2OXKyXYgNq N1O7pVTkS7E8HInrXe1ICBRkRIQsBuNxLPQSGKspXM 6XQI2ojxF4OR1OtPRmNXUvCZMjdBTyYBl1X75asCMcERlpAM8BKLA+Gerardo+Fb9ZDSTdOCKaDAAbTbBuNF EAZuMvH2MsQ4DNc8ErT6UjJT34xNmajdCaWIxiKG4JJV3yHWClXPFNSO4RfEIplD8zuiAdFZRfMLBJZs MpI86vaSWcMPSnYZW8LOFyHm2WVMZtY2DhivWwhRbc tvLzQKCiKRPZVR7VUNcignCruNYmaMqtFI94dBgmBO2GNa6DXrYmXG3cwp7BzZHlWu4DQFEvRW4MBTXt NOMcDPJlPMJ8AMEaTaCrMEstWJZyCXIkABZ1HGTvPTOaGQ6PSkJaCUGyYCVuNlmrNVMjMNKmsz9PGSGc IYS1MSe6NYVzNFTsPUXjWSyvCECoIRVpOWR7ZDNoUA LeJQ3QNhBlTHJwNSNgGaVtQPFhUILvee0HBKWuCIOyHXBnQXGdMRLjFWFsIGgoFSWtVRW1NYY5OAMlQE MaFO1YQrAlRUVsKMo2NrAdAJKkMUIfmy7FKEPdKFObVBS6LCZlEEAxTVWnIOxrLYRfDFEnNdNxQPQtIC GrAD9NZhObYMUvTMH0BJmkBFXxTDHrbn1CKLLiPMYy JrBkGLXhHEOvAIMbNExdHRTlPDD3UWBcCGLjXVNdED2NHpNsGFSxLZn5YWGjGNLdYIXena4EBILuXUAi WeR2MZXvWFTfULZyABmwRZZsBVBfTMtsDBJkBLTbAN0XFzIrYRKlWcQ5CaOfDEQiSYMprx1BHPQvQVEr MzYyNyAwMDAwMCBuDQowMDAwMDIzODEwIDAwMDAwIG 0POiHsBSQkJgJ4VhklXZKtOVAsxt0XONFjMCAdXOg0WHZwEXBuHHWwPFczEZEtOOI3AHU2ZMGnNJOeQR 3VLhWwITQrHgLxQFqhTUGrMJZzqb0QPIZpDCFpAdLiLtYgGZGbUGYdYCnyEFXsOMC5KEr7CMKdOSMoXM 5FDcLrTABxAot1IHPeZEZtUZOidz2QLPHuZSOhYQCl GpJsVMFqIMQeSTctNTVhVUD9CWXjWHLrXIVdXT4JYnKfUVBnEuo6XGToQVIwCHSaqs4GBKTiUGYuXAw5 GpDvKFUmWTWiWAptZYHwBHV7NoHgQRQbIPViEJ5EGqUuJNOwStf8QitqCEMhSNRzuc0MYSIvVAA0TUQw TsGdCQTrMFKzXHavILIhMJOdUNE9WYLxKLJtML0DGo QkLNXbMICuENDeIKNwDLWtsr8NTHLiYTV6KtZ7QMLgOPPrYXWlRByoFNXbJMGoGrPvFWBkTJHfCH6FYh PiFArmYLJAIsu1AIagE2b7VDUsGH8QH1Ltz1YrTnqgEDQSYKfjAW7dmlZcHSCqYe6EW8qHQxpxZfJuVA IrUbGwMCAvWQQnHhLuBDtfYAopO6XlKHllWg6dPZNl YcU1HMBsXKD3NtG3VQX5TsJ6X0ZiFrA0SNX6VKVgIaKvSY9ARr7BZgM5UVO0iVVvUm1DJNH8JtKEGhIk [id number]= ID Date Data Source [id number] 03/02/2020 05:39:56 PM T [facility] Name Value Range Interpretation Code Description Data Fide rce(s) Supporting Document(s) Glucose [Mass/volume] in Capillary blood by Glucometer 170 mg/dL 70- 140 [facility] ID Date Data Source [id number] 03/02/2020 12:41:49 PM [facility] Name Value Range Interpretation Code Description Data Fide rce(s) Supporting Document(s) Glucose [Mass/volume] in Capillary blood by Glucometer 129 mg/dL 70- 140 [facility] ID Date Data Source [id number] 03/02/2020 08:31:14 AM [facility] Name Value Range Interpretation Code Description Data Fide rce(s) Supporting Document(s) Glucose [Mass/volume] in Capillary blood by Glucometer 144 mg/dL 70- 140 [facility] ID Date Data Source [id number] 03/02/2020 01:22:56 AM [facility] Name Value Range Interpretation Code Description Data Fide rce(s) Supporting Document(s) Leukocytes [#/volume] in Blood by Automated count 5.0 10*3/uL 4-10 [facility] Erythrocytes [#/volume] in Blood by Automated count 2.66 10*6/uL 4.6- 6.1 L [facility] Hemoglobin [Mass/volume] in Blood 7.9 g/dL 13.5-18 L [facility] Hematocrit [Volume Fraction] of Blood by Automated count 23.6 % 4 1-53 L [facility] Erythrocyte mean corpuscular volume [Entitic volume] by Auto mated count 88.6 fL 80-96 [facility] Erythrocyte mean corpuscular hemoglobin [Entitic mass] by Automated count 29.6 pg 27-33 [facility] Erythrocyte mean corpuscular hemoglobin concentration [Mass/volume] by Automated count 33.4 g/[facility].0[facility] width [Ratio] by Automated count 19.9 % 11.5-14.5 [facility] Platelets [#/volume] in Blood by Automated count 135 10*3/uL 150-400 [facility] Differential cell count method - Blood [facility] Neutrophils/100 leukocytes in Blood by Automated count 88 % [facility] Lymphocytes/100 leukocytes in Blood by Automated count 8 % [facility] Monocytes/100 leukocytes in Blood by Automated count 3 % [facility] Eosinophils/100 leukocytes in Blood by Automated count 0 % [facility] Basophils/100 leukocytes in Blood by Automated count 1 % [facility] Neutrophils [#/volume] in Blood by Automated count 4.44 10*3/uL 1.8-7 .0 [facility] Lymphocytes [#/volume] in Blood by Automated count 0.37 10*3/uL 1.2-4 .0 [facility] Monocytes [#/volume] in Blood by Automated count 0.16 10*3/uL 0-0.8 [facility] Eosinophils [#/volume] in Blood by Automated count 0.01 10*3/uL 0-0.5 [facility] Basophils [#/volume] in Blood by Automated count 0.03 10*3/uL 0-0.2 [facility] Nucleated erythrocytes/100 leukocytes [Ratio] in Blood by Automated count 0 /100{WBCs} 0-0 [facility] ID Date Data Source [id number] 03/02/2020 01:43:54 AM EDT [facility] Name Value Range Interpretation Code Description Data Fide rce(s) Supporting Document(s) Bicarbonate [Moles/volume] in Serum 20 mmol/L 22-29 [facility] Chloride [Moles/volume] in Serum or Plasma 99 mmol/L 98-107 [facility] Creatinine [Mass/volume] in Serum or Plasma 3.88 mg/dL 0.70-1.20 [facility] Glucose [Mass/volume] in Serum or Plasma 125 mg/dL 70-140 [facility] Potassium [Moles/volume] in Serum or Plasma 4.4 mmol/L 3.4-5.1 [facility] Sodium [Moles/volume] in Serum or Plasma 135 mmol/L 136-145 [facility] Urea nitrogen [Mass/volume] in Serum or Plasma 73 mg/dL 8-23 [facility] Anion gap 3 in Serum or Plasma 16 mmol/L 8-15 [facility] Osmolality of Serum or Plasma by calculation 302 mosm/kg 275-300 [facility] Creatinine/Urea nitrogen [Mass Ratio] in Serum or Plasma 19 [facility] Calcium [Mass/volume] in Serum or Plasma 6.8 mg/dL 8.8-10.2 [facility] Glomerular filtration rate/1.73 sq M pre dicted among non-blacks [Volume Rate/Area] in Serum or Plasma by Creatinine-based formula (MDRD) 15 mL/min/1.73m2 >60 [facility] Glomerular filtration rate/1.73 sq M pre dicted among blacks [Volume Rate/Area] in Serum or Plasma by Creatinine-based formula (MDRD) 17 mL/min/1.73m2 >60 [facility] ID Date Data Source [id number] 03/02/2020 11:55:47 AM [facility] Value Range Interpretation Code Description Data Fide rce(s) Supporting Document(s) Ferritin [Mass/volume] in Serum or Plasma 309 ng/ml 30-400 [facility] ID Date Data Source [id number] 03/02/2020 11:55:47 AM [facility] Value Range Interpretation Code Description Data Fide rce(s) Supporting Document(s) Iron [Mass/volume] in Serum or Plasma 17 ug/dl 59-158 [facility] Transferrin [Mass/volume] in Serum or Plasma 132 mg/dL 200-360 [facility] Iron binding capacity [Mass/volume] in Serum or Plasma 183 ug/dl 228 -428 [facility] Iron saturation [Mass Fraction] in Serum or Plasma 9.0 % 20-55 [facility] ID Date Data Source [id number] 03/01/2020 09:40:06 PM [facility] Value Range Interpretation Code Description Data Fide rce(s) Supporting Document(s) Glucose [Mass/volume] in Capillary blood by Glucometer 172 mg/dL 70- 140 [facility] ID Date Data Source [id number] 03/01/2020 05:22:11 PM [facility] Value Range Interpretation Code Description Data Fide rce(s) Supporting Document(s) Glucose [Mass/volume] in Capillary blood by Glucometer 138 mg/dL 70- 140 [facility] ID Date Data Source [id number] 03/01/2020 04:09:47 PM [facility] XR CHEST FRONTAL ONLY [id number] RESULTI nterpreted by:Rakesh Devine MDPROCEDURE INFORMATION: Exam: XR Chest, 1 View Exam date and time: 03/01/2020 12:00 PM Age: 64 years old Clinical indication: Other: Hypoxia TECHNIQUE: Imaging protocol: XR of the chest Views: 1 view. COMPARISON: CR XR CHEST FRONTAL ONLY [id number] PORTABLE 02/18/2017 6:54 AM FINDINGS: Lungs: Unremarkable. No consolidation. There is a relatively poor inspiration on this exam crowding markings in the lungs.. Pleural space: There is a small right pleural effusion Heart/Mediastinum: Unremarkable. No cardiomegaly. Bones/joints: Unremarkable. IMPRESSION: 1. There is a small right pleural effusion 2. No other acute abnormality THIS DOCUMENT HAS BEEN ELECTRONICALLY SIGNED BY RAKESH DEVINE MDThis document has been electronically signed by Rakesh Devine MD on 03/01/2020 4:09 PM Name Value Range Interpretation Code Description Data Fide rce(s) Supporting Document(s) ID Date Data Source [id number] 03/01/2020 03:54:00 PM [facility] Name Value Range Interpretation Code Description Data Fide rce(s) Supporting Document(s) Albumin [Mass/volume] in Serum or Plasma by Bromocresol green (BCG) dye binding method 3.5 g/dL 3.5-5.2 [facility] Bil[facility].total [Mass/volume] in Serum or Plasma 0.4 mg/dL <1.2 [facility] Calcium [Mass/volume] in Serum or Plasma 6.9 mg/dL 8.8-10.2 L [facility] Chloride [Moles/volume] in Serum or Plasma 98 mmol/L 98-107 [facility] Creatinine [Mass/volume] in Serum or Plasma 3.65 mg/dL 0.70-1.20 [facility] Glucose [Mass/volume] in Serum or Plasma 144 mg/dL 70-140 [facility] Alkaline phosphatase [Enzymatic activity/volume] in Serum or Plasma 101 U/L 40-129 [facility] Potassium [Moles/volume] in Serum or Plasma 4.3 mmol/L 3.4-5.1 [facility] Protein [Mass/volume] in Serum or Plasma 6.6 g/dL 6.4-8.3 [facility] Sodium [Moles/volume] in Serum or Plasma 134 mmol/L 136-145 L [facility] Aspartate aminotransferase [Enzymatic activity/volume] in Serum or Plasma 11 U/L <40 [facility] Urea nitrogen [Mass/volume] in Serum or Plasma 70 mg/dL 8-23 [facility] Osmolality of Serum or Plasma by calculation 301 mosm/kg 275-300 [facility] Creatinine/Urea nitrogen [Mass Ratio] in Serum or Plasma 19 [facility] Bicarbonate [Moles/volume] in Serum 21 mmol/L 22-29 L [facility] Alanine aminotransferase [Enzymatic activity/volume] in Seru m or Plasma 10 U/L <41 [facility] Anion gap 3 in Serum or Plasma 16 mmol/L 8-15 [facility] Albumin/Globulin [Mass Ratio] in Serum or Plasma 1.1 [facility] Glomerular filtration rate/1.73 sq M pre dicted among non-blacks [Volume Rate/Area] in Serum or Plasma by Creatinine-based formula (MDRD) 16 mL/min/1.73m2 >60 L [facility] Glomerular filtration rate/1.73 sq M pre dicted among blacks [Volume Rate/Area] in Serum or Plasma by Creatinine-based formula (MDRD) 19 mL/min/1.73m2 >60 [facility] ID Date Data Source [id number] 03/01/2020 03:54:00 PM [facility] Value Range Interpretation Code Description Data Fide rce(s) Supporting Document(s) Magnesium [Mass/volume] in Serum or Plasma 1.8 mg/dL 1.6-2.4 [facility] ID Date Data Source [id number] 03/01/2020 03:54:00 PM [facility] Value Range Interpretation Code Description Data Fide rce(s) Supporting Document(s) Phosphate [Mass/volume] in Serum or Plasma 3.8 mg/dL 2.5-4.5 [facility] ID Date Data Source [id number] 03/01/2020 12:23:32 PM [facility] Value Range Interpretation Code Description Data Fide rce(s) Supporting Document(s) Glucose [Mass/volume] in Capillary blood by Glucometer 168 mg/dL 70- 140 [facility] ID Date Data Source [id number] 03/01/2020 10:32:37 AM [facility] Value Range Interpretation Code Description Data Fide rce(s) Supporting Document(s) Tacrolimus [Mass/volume] in Blood [facility] Renal Transplant Target ValuesImmediate post-transplant: 10 - 15 ng/mL First 6 months: 6 - 15 ng/mL Greater than 6 months: 6 - 15 ng/mL ID Date Data Source [id number] 03/01/2020 08:26:46 AM [facility] Value Range Interpretation Code Description Data Fide rce(s) Supporting Document(s) Glucose [Mass/volume] in Capillary blood by Glucometer 155 mg/dL 70- 140 H [facility] ID Date Data Source [id number] 03/01/2020 04:46:41 AM EDT [facility] Name Value Range Interpretation Code Description Data Fide rce(s) Supporting Document(s) Leukocytes [#/volume] in Blood by Automated count 5.3 10*3/uL 4-10 [facility] Erythrocytes [#/volume] in Blood by Automated count 2.89 10*6/uL 4.6- 6.1 L [facility] Hemoglobin [Mass/volume] in Blood 8.6 g/dL 13.5-18 L [facility] Hematocrit [Volume Fraction] of Blood by Automated count 25.7 % 4 1-53 L [facility] Erythrocyte mean corpuscular volume [Entitic volume] by Auto mated count 88.8 fL 80-96 [facility] Erythrocyte mean corpuscular hemoglobin [Entitic mass] by Automated count 29.6 pg 27-33 [facility] Erythrocyte mean corpuscular hemoglobin concentration [Mass/volume] by Automated count 33.3 g/dL 32.0-36.0 [facility] E[facility]th[facility] distribution width [Ratio] by Automated count 20.2 % 11.5-14.5 [facility] Platelets [#/volume] in Blood by Automated count 133 10*3/uL 150-400 [facility] Differential cell count method - Blood [facility] Neutrophils/100 leukocytes in Blood by Automated count 81 % [facility] Lymphocytes/100 leukocytes in Blood by Automated count 12 % [facility] Monocytes/100 leukocytes in Blood by Automated count 5 % [facility] Eosinophils/100 leukocytes in Blood by Automated count 1 % [facility] Basophils/100 leukocytes in Blood by Automated count 1 % [facility] Neutrophils [#/volume] in Blood by Automated count 4.35 10*3/uL 1.8-7 .0 [facility] Lymphocytes [#/volume] in Blood by Automated count 0.62 10*3/uL 1.2-4 .0 L [facility] Monocytes [#/volume] in Blood by Automated count 0.25 10*3/uL 0-0.8 [facility] Eosinophils [#/volume] in Blood by Automated count 0.03 10*3/uL 0-0.5 [facility] Basophils [#/volume] in Blood by Automated count 0.03 10*3/uL 0-0.2 [facility] Nucleated erythrocytes/100 leukocytes [Ratio] in Blood by Automated count 0 /100{WBCs} 0-0 [facility] ID Date Data Source [id number] [facility] Interpretation Code Description Data Fide rce(s) Supporting Document(s) Bicarbonate [Moles/volume] in Serum 20 mmol/L 22-29 L [facility] Chloride [Moles/volume] in Serum or Plasma 102 mmol/L 98-107 [facility] Creatinine [Mass/volume] in Serum or Plasma 3.50 mg/dL 0.70-1.20 [facility] Glucose [Mass/volume] in Serum or Plasma 105 mg/dL 70-140 [facility] Potassium [Moles/volume] in Serum or Plasma 4.0 mmol/L 3.4-5.1 [facility] Sodium [Moles/volume] in Serum or Plasma 138 mmol/L 136-145 [facility] Urea nitrogen [Mass/volume] in Serum or Plasma 73 mg/dL 8-23 [facility] Anion gap 3 in Serum or Plasma 15 mmol/L 8-15 [facility] Osmolality of Serum or Plasma by calculation 307 mosm/kg 275-300 [facility] Creatinine/Urea nitrogen [Mass Ratio] in Serum or Plasma 21 [facility] Calcium [Mass/volume] in Serum or Plasma 7.0 mg/dL 8.8-10.2 [facility] Glomerular filtration rate/1.73 sq M pre dicted among non-blacks [Volume Rate/Area] in Serum or Plasma by Creatinine-based formula (MDRD) 17 mL/min/1.73m2 >60 L [facility] Glomerular filtration rate/1.73 sq M pre dicted among blacks [Volume Rate/Area] in Serum or Plasma by Creatinine-based formula (MDRD) 19 mL/min/1.73m2 >60 L [facility] ID Date Data Source [id number] [facility]/01[facility]2020 [facility] Value Range Interpretation Code Description Data Fide rce(s) Supporting Document(s) Magnesium [Mass/volume] in Serum or Plasma 2.0 mg/dL 1.6-2.4 [facility] ID Date Data Source [id number] 03/01/2020 05:06:56 AM EDT [facility] Name Value Range Interpretation Code Description Data Fide rce(s) Supporting Document(s) Phosphate [Mass/volume] in Serum or Plasma 4.7 mg/dL 2.5-4.5 [facility] ID Date Data Source [id number] 02/27/2020 03:09:42 AM EDT [facility] Name Value Range Interpretation Code Description Data Fide rce(s) Supporting Document(s) Progress Note [facility] YQJQAb3dQkZTExQd65/BPCuyEPNcf3FaCTytIBd3MTgmSOIvD4StJFS7kS2gRFY0DVsKZrPvUvJlYUHz lbm [file] ICAgICAgICAgICAgICAgICAgICAgICAgICAgICAgICAgICAgICAgICAgICAgICAgICAgICAgICAgICAg ICAgICAgICAgICAgICAgICAgICAgICAgICAgICAgICAgICAgDQogICAgICAgICAgICAgICAgICAgICAg ICAgICAgICAgICAgICAgICAgICAgICAgICAgICAgIC AgICAgICAgICAgICAgICAgICAgICAgICAgICAgICAgICAgICAgICAgICAgICAgDQogICAgICAgICAgIC AgICAgICAgICAgICAgICAgICAgICAgICAgICAgICAgICAgICAgICAgICAgICAgICAgICAgICAgICAgIC AgICAgICAgICAgICAgICAgICAgICAgICAgICAgDQog ICAgICAgICAgICAgICAgICAgICAgICAgICAgICAgICAgICAgICAgICAgICAgICAgICAgICAgICAgICAg ICAgICAgICAgICAgICAgICAgICAgICAgICAgICAgICAgICAgICAgDQogICAgICAgICAgICAgICAgICAg ICAgICAgICAgICAgICAgICAgICAgICAgICAgICAgIC AgICAgICAgICAgICAgICAgICAgICAgICAgICAgICAgICAgICAgICAgICAgICAgICAgDQogICAgICAgIC AgICAgICAgICAgICAgICAgICAgICAgICAgICAgICAgICAgICAgICAgICAgICAgICAgICAgICAgICAgIC AgICAgICAgICAgICAgICAgICAgICAgICAgICAgICAg DQogICAgICAgICAgICAgICAgICAgICAgICAgICAgICAgICAgICAgICAgICAgICAgICAgICAgICAgICAg ICAgICAgICAgICAgICAgICAgICAgICAgICAgICAgICAgICAgICAgICAgDQogICAgICAgICAgICAgICAg ICAgICAgICAgICAgICAgICAgICAgICAgICAgICAgIC AgICAgICAgICAgICAgICAgICAgICAgICAgICAgICAgICAgICAgICAgICAgICAgICAgICAgDQogICAgIC AgICAgICAgICAgICAgICAgICAgICAgICAgICAgICAgICAgICAgICAgICAgICAgICAgICAgICAgICAgIC AgICAgICAgICAgICAgICAgICAgICAgICAgICAgICAg ICAgDQogICAgICAgICAgICAgICAgICAgICAgICAgICAgICAgICAgICAgICAgICAgICAgICAgICAgICAg XYZgUZJcVEKvWNRlQJNyXAErHNIjACFcCHDbUWYnTIRdTJUfOVLxKBLjIXMtKAw3G0toGZZxRYVoTI0r CRu4Cs2+KEpGMmDnROA5uaQjwI4CGT7qx3MwLOqlJH Ytq7ApHIx6MC7VVYCrSHhpUO3TVCpkpf0RTDXxQHIopNKVc6yrRqExVPX3VJYcIgtdHT4BOJJoQ3iqvg PuEZIzIRBTCE2FNoZjR9GwuE03RDHIJe0+AXagcvJgByaAJuM3HLFyd1VmDPs6GK9KDJTeGwami1BcHp FqNDNMLUztMA1IVYM2COWoPKBkQf7IROMgO460ymQz VL4GSe0FItBdNT2mou8KPnLiULIqOjiUCar4TQhtXV4NwHEcELqQng2tauRagxXBd7KafvRknICRDU4b DwJktyEoyH0dMR2HJWP5NYRtBs4bCQImVUWcKjJyOTWRBV8SLFAhTVZvzROsBUPrGNZPVH5NXDcpAPP6 KDNzpjSmkZDpTTikPM6RJHZjhzUsBLlkATFTOKg+Pg 7ZGG6sg4RxEQzqQCAcYS6dyz8KCNmFQyWeW7N0zGKcD2E4NCjtZe4ASFXfRYMmEPrtBAFGUNztHB5IUV 5ajoT4QL7HiWTlDEUxOIRdmZElVWc9L35dsUXoHCqjZP3FLNC+Gerardo+Rc7DPYSqZKUfMMBvReUeJZMYBc AuV5AyV6TCn3XqP6KfSM19iIwawtUcBYgoOR8OGS3t BIRhLCMWSZ7OqUKzbY3msaBdQGGtWNVVNnNbH11llOChXKCtUPZ7UGUcSz6KVMQgX5AkcgQugYqxreZb YJPuKKBUKS2UAUtftkJpwGSiiRuxQV41xOicCK9UFb4QJcWsIY1pps1XhZUwRx4RXGLgSo6STECcCWRs ZIEuOYQ5SLGmGwZdRDgtVQAnUFFlRFE7YSXwETVeBQ 5IPwMxYUVlCQP0LVYyACOuMPGjwn9ZCFSbVGYoTFGuAmRxKIWvPVXjPTmsMYRcJBMhYHU4IIDuSOAeWB 7YJvBhAVXrUQP2KKGlONKuYLNkbv9MYNWcOVIrYYt1TMFwFFCwEVIjUXemHFHbTWJnNMHcGWJhWWQlEP 6VEmJhKVAiDWLfEEcmSJUgKDGres7RYDSjIMEfExY9 BEDoALWtGGHiQUuzPOBiIKC1FdX8DGPjCKJzCL9RSsWvKHArOSD0NabaFXIdXOPvru5MKPBlKWMmMYZr AqFrGMIkPKPuNIczYXDsYKR8XVjjSLKbSCXrUT6MXkKuLDHqBEVbHYmcIJMbHFHjfc8UESXmTYUaGrSa TqDbLIDaBUQwCDdiFWBvQOS0VsN5CWQjSIXqJF1HVi OzSWZqNND3AUIuWCImDMIpaf8WOBKkSHVnDxH3VqEuIXHaZZQmFZuiTOYwVKZ6FgJqCNPlOIDaGA7CMe BbGEBkEKu9YMSoFBYxJJLjyl3EUMFcLDViQGg0YeIdBIGdTPDeXRw3giJicLViCEc6PX1AN3HptwYeBz QYNt5Up676AKKoCGZhGf6IZ3naUr4oLNVsZKHFRt2I INe6XHXjNhS1WYA5SSH5TMi0KoY7VCKkG6OyHxNlQOA0HxO+FOuoRhMqULF1KvxvYPuaUvs9RHz4WaJr KoNrI0QgNDGpRZ5aQLKPSh4+XWwatWGatGxsYUOFTfA7EEduHHrqMHYAJs7B ID Date Data Source [id number] 02/27/2020 03:09:36 AM EDT [facility] Name Value Range Interpretation Code Description Data Fide rce(s) Supporting Document(s) Progress Note [facility] VXUOVw3mRhOQQuBj42/OWRbpOGNvp8CyOPwaFKw3UIaaNRRvF9LhMEY2vG2kBLP4JPjCHqWwZjTkOXSa lbm [file] AStiJIFrD5JiAiB8KCQ8FC2qWJQVBr2+VClrcYAnvAktMSWPIyU2WVO0ZAppETJSYn0I ID Date Data Source [id number] 02/07/2020 02:28:00 PM EDT [address] [address] Patient Name: Moisés Bishop Exam Date: 02/07/20 : 1955 Ordering Doctor: Breonna Hastings NP Attending Doctor: Breonna Hastings NP CC: [facility] MRI BRAIN WITHOUT CONTRAST 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 TECHNIQUE: MRI of the brain was performed without gadolinium. The following pulse sequences were performed: Sagittal T1 and axial T2, FLAIR, GRE, axial and coronal DWI. COMPARISON: None. FINDINGS: There is no acute parenchymal hemorrhage, extra-axial fluid collection, mass, mass-effect or midline shift. Although limited by lack of intravenous contrast, no vasogenic edema is seen, to suggest brain metastases. There is no evidence of restricted diffus ion to suggest acute infarction. The ventricles are normal in size and configuration. Normal intracranial arterial flow-voids are present. Moderate chronic inflammatory mucosal thickening is noted throughout the paranasal sinuses, right greater than left. The orbits appear unremarkable. IMPRESSION: No evidence of acute intracranial pathology or mass lesion. Professional interpretation performed at [facility] . End of diagnostic report: [id number] Signed: Scott Breaux MD 02/07/20 1609 Interpreted by: Vika Breauxscribed by: Scott Breaux Name Value Range Interpretation Code Description Data Fide rce(s) Supporting Document(s) ID Date Data Source [id number] 02/07/2020 01:32:00 PM EDT [facility] Name Value Range Interpretation Code Description Data Fide rce(s) Supporting Document(s) BLOOD UREA NITRO 83 MG/DL 7-25 H [facility] ID Date Data Source [id number] 02/07/2020 01:32:00 PM EDT [facility] Name Value Range Interpretation Code Description Data Fide rce(s) Supporting Document(s) CREATININE 3.1 MG/DL 0.6-1.4 H [facility] GFR 20.3 ML/MIN [facility] Stage G4 - Severely decreased kidney fu nction The GFR is an estimate of the Glomerular Filtration Rate. It is an aid to assess a patient's renal function. It is not a conclusive diagnosis of kidney disease. GFR normal is >=90 The MDRD GFR calculation is considered valid between the ages of 18 and 75 years only. ID Date Data Source [id number] 02/07/2020 10:29:22 AM EDT [facility] Name Value Range Interpretation Code Description Data Fide rce(s) Supporting Document(s) Progress Note [facility] FWPLKl9mYaVXFkLv90/QEAxaNCIqq6LvNIkkOCb8NZpnNISjP9NeXGL8vT8pHFN9ADpGWrWwXlHcIAZo lbm [file] //zTMD5a//qv6v+oVYzEghrhM3h0+9yVj3nVad6/Ujm/process safety [file] vmGZjjAz2QFIXET8DQLs== ID Date Data Source [id number] 02/07/2020 10:24:11 AM EDT [facility] Name Value Range Interpretation Code Description Data Fide rce(s) Supporting Document(s) Progress Note [facility] ULSLAo7wVoWOYwGd74/GXOilVCKwb6MvGQtvLDr3TKqbQHIeS4KcJJX1dT6tSYZ4VIeWRtDuQaGlEJPh lbm [file] IIEPExNjJRFqKVgdSQLDId0G ID Date Data Source [id number] 02/02/2020 07:04:09 AM EDT [facility] Name Value Range Interpretation Code Description Data Fide rce(s) Supporting Document(s) Progress Note [facility] YDDGOg2qNsBNGfZa49/DABmrSJOfr4AtPPueZRo6SRkqRMJoI4BmTHF4hD8iMTK9BVqWUkHaMkBuGAH2 lbm [file] DQogICAgICAgICAgICAgICAgICAgICAgICAgICAgIC AgICAgICAgICAgICAgICAgICAgICAgICAgICAgICAgICAgICAgICAgICAgICAgICAgICAgICAgICAgIC AgICAgICAgICAgDQogICAgICAgICAgICAgICAgICAgICAgICAgICAgICAgICAgICAgICAgICAgICAgIC AgICAgICAgICAgICAgICAgICAgICAgICAgICAgICAg ICAgICAgICAgICAgICAgICAgICAgDQogICAgICAgICAgICAgICAgICAgICAgICAgICAgICAgICAgICAg ICAgICAgICAgICAgICAgICAgICAgICAgICAgICAgICAgICAgICAgICAgICAgICAgICAgICAgICAgICAg ICAgDQogICAgICAgICAgICAgICAgICAgICAgICAgIC AgICAgICAgICAgICAgICAgICAgICAgICAgICAgICAgICAgICAgICAgICAgICAgICAgICAgICAgICAgIC AgICAgICAgICAgICAgDQogICAgICAgICAgICAgICAgICAgICAgICAgICAgICAgICAgICAgICAgICAgIC AgICAgICAgICAgICAgICAgICAgICAgICAgICAgICAg ICAgICAgICAgICAgICAgICAgICAgICAgDQogICAgICAgICAgICAgICAgICAgICAgICAgICAgICAgICAg ICAgICAgICAgICAgICAgICAgICAgICAgICAgICAgICAgICAgICAgICAgICAgICAgICAgICAgICAgICAg ICAgICAgDQogICAgICAgICAgICAgICAgICAgICAgIC AgICAgICAgICAgICAgICAgICAgICAgICAgICAgICAgICAgICAgICAgICAgICAgICAgICAgICAgICAgIC AgICAgICAgICAgICAgICAgDQogICAgICAgICAgICAgICAgICAgICAgICAgICAgICAgICAgICAgICAgIC AgICAgICAgICAgICAgICAgICAgICAgICAgICAgICAg ICAgICAgICAgICAgICAgICAgICAgICAgICAgDQogICAgICAgICAgICAgICAgICAgICAgICAgICAgICAg ICAgICAgICAgICAgICAgICAgICAgICAgICAgICAgICAgICAgICAgICAgICAgICAgICAgICAgICAgICAg ICAgICAgICAgDQogICAgICAgICAgICAgICAgICAgIC AgICAgICAgICAgICAgICAgICAgICAgICAgICAgICAgICAgICAgICAgICAgICAgICAgICAgICAgICAgIC BvFCNzCWYgWVMdIGNgPOZoSGOcRLe8N8qgKQPfAKZlVG6qUNu0Us3+QBwEUfSkJAG1lqRtkC2VNK1ly5 GaRFkzATZoz0OnFBt0LQ4QLOXyNJrnQG9TNGqrsv1S KZXvQJMdkKZCv8dyNkFfZUB4UBTlIvxbVQ3NIGObB4etjdRjAMRwQLKRTP5DDdBjI4DjoH60NPALQy2+ WTrxzyIsUfmSYtU3YCYfh2BiTAi9FE6WXFHwUaanu5GjShYiQAOQEZevFT0IKVU0XOPsKROoAj1DQGDx W251ssUbSX9XGk0JFhJgJT8gdk1OOrUvGYVtXkeUFg s0CJglMY8DjMRpAPiQcl0ytaJyyiOYj4BbyhPmaZAVCQ7xQaEtvjSqrV5yIE7SUDW1MXTdRm8nYVKnAZ DwFxK7ZLSMMT6PSAVbPDZzaRTxAEVvIJXNCL4IGZppCCB5VNDfkyFfzHMtYWdiXH8MBYUtjqQfBHbaUQ BSDQo+Ni4MEW1cv2KoDSizAUUxTP5blz6PGOuJXnVa J3T4sOWlN1I7AXdwRc9AWAByJWTdFSvcPKYUVMlqIZ8ZMO9slzO3UN3UoVAjUOTbVYAgvQPtBHg0K44k aKIvRZfwRJ9SPSR+Gerardo+Qi2CDDMyHYFsWUEkTkBuBYXYIdVgY3LgP3RSe5QoW0NhWI34hUssbwVkAUva VY1RLV5eKCAdORZYAV9UqITyqF7rpqHjMMVdWCTPWe JiA93tbSCgZHIhAYD1GYYmCj0PRMIgN8TubxTzgLkhotNmGJGdBGZZCA5LQCjsimQldEXxwLsgWN49fC wjDQ1LWn5QMyOhPN4mjs0OcRObJe0HBDXfCw5LCFFeQCVdHAZbTPP2VMVmCsRtBFiiSTEwCIIvFIW1YN TtPDKzEI0CSkQwYSWrFJk7ZIezVSEvYOQzvw3YJHJl RMWwGZB5FeNkQJCxUWNkIBdcQSKrCRMqRKB4XXMaLJFxJC9DSmDoXHJnXYH4YdQyDNPtUUSbdl6IWNNs YWOaNut4BQQoJMOfVOCePZykYWPjQQPxRLU5HMSbRRGhWV9LRcQvHKBuPGQoFpVdHYCgUDOgwl7AEIUo GSOhHJFpCBNpTLYfMJTaALtuBJRrJEW8CchnWIQkTQ TcRP6TKgAxWWZyUCV4KzXjVICqRKCxiy1KEEJjVRNzVYS8LJZzFAKgDYCjPQllWEVvZVM9WGQ5MIGdLV SoPF4RYqZaIZXhHNjiLnJzMDHhWEJmai6FTXUjJHElKbW8ZFGxRAUkDLQpSQdbUYZyVZU8HvalKVCuFG PaKV7ZJsWpOSMvSAz9PyliMLGjUOZyqp2EYKVjAQTm LOIbLtVgOFMwXBWtHMlfYNOoTUQ2RxJ7QFBxZHCyGG7WBsCyFPQoEFi2HyJbZEFyAQTdjo1LQITuVQOh VHk3LeZbEKYiZMLePMf7piPjhWNeOWt5WA1ZO2TjcpOqUaVRWr5Gu167VOOoWAWfTu9DN3mwWy2qWKQc WBGIDb4XCRr3MQQoCLI7BKMxR0G5S3EuXVU6COC6Ph NaSRC5QvHdOXQ+EEc9C0GeZHe8DxH6FTN2HcJbSEO2MgNiAUG2KoBuCfR0DZ4xUOPZBx3+DQpzdGFydH lnWKGGFwEaReF8WKgsQAJPQm0O ID Date Data Source [id number] 01/10/2020 03:46:49 PM EDT [facility] Name Value Range Interpretation Code Description Data Fide rce(s) Supporting Document(s) Progress Note [facility] CMWEXi0aSmXDRqPd41/DENigAQMwc1XkKGdmCAg3AIcfKXHfD5AcKKA1eI0aDKN5IInUGgTcVgYqIVDh lbm [file] ICAgICAgICAgICAgICAgICAgICAgICAgICAgICAgIC MoRGFrGLUeOLRgKACjYZZnZGItIVPdEWAtSMHgSADiSNQjUQJgXCMqCACbVMMgEACqLUEhTAIeTS0JMY AgICAgICAgICAgICAgICAgICAgICAgICAgICAgICAgICAgICAgICAgICAgICAgICAgICAgICAgICAgIC AgICAgICAgICAgICAgICAgICAgICAgICAgICAgICAg VLUxUOPfPN2ZJYWqELXbRTXtEZCbRFMrMQLdMJOpPHFxCEKcVZNoANPkBZUuPLBnFPKfLBMkZWGcKLLi ERLnWIPmVTZcZXVtPNMzGRJtUZKwEVOcZCRoWZRqFLYgXPTaEXYhIEMjPKUhZETuTY0ZISOnNZAiBFXs ICAgICAgICAgICAgICAgICAgICAgICAgICAgICAgIC AgICAgICAgICAgICAgICAgICAgICAgICAgICAgICAgICAgICAgICAgICAgICAgICAgICAgICAgICAgIA 0KICAgICAgICAgICAgICAgICAgICAgICAgICAgICAgICAgICAgICAgICAgICAgICAgICAgICAgICAgIC AgICAgICAgICAgICAgICAgICAgICAgICAgICAgICAg RKHoYSBkSAZaJQ7JGSPyTEJyDJFmMAMxUFWkAIGgMNIsJDBkGEEeKRVtRRZaPAHzZKTpLNFlRJDtLMBl GMJlBJEjTJIiBMXgPEDmQLGaOSKiXHRhXPEnNQTxZUZjGWKqKJUtSKOnRGFjDOPfYLMkJY6IBOQySEQw ICAgICAgICAgICAgICAgICAgICAgICAgICAgICAgIC AgICAgICAgICAgICAgICAgICAgICAgICAgICAgICAgICAgICAgICAgICAgICAgICAgICAgICAgICAgIC DkRE5BQCGpQVIaBPEgVTNsETJvYDFpYMDmSNTzMQMrBKHqBJFzGDPtDNMqGHYcQMBmQCJgVRNxSRObKN AgICAgICAgICAgICAgICAgICAgICAgICAgICAgICAg MOHqGSCyWCAiLRHtRF5BYLDeKLDwFOEiOCGtKQGiLKJhTZKwWVYvRHFmCHDjRCPzYFAhXKXqMTIsDJWh NPRpKMLoUOIeMNOgTUNyCKRxYCJrYPFjJQYdJKUpLXRyRTUfQCPcOAEuGMVyWUReDTAdLDIgUI5EGQ80 pFQrm8C0FFVbJC1qzil/So3PKDgqauWbgUKbQF2RKp HsZF8czn5AOrOhVE9xzc0VDMmWQgEzD3H9dXLrQOUsDOHOJtZiL58dOAzsJz39ITvnULDqNbTzBNq1Yp 9PVcUfD4rdAJDyKfA4GJEyImA2NBGuMpY5XEKhTpEpAHJzOWItZEElMAFUAI4GBxPwH2DivZ25VXGEWb 4+FAeuzfNlHihGRaHzNFSvq4BiLRh3NC1LGSWtPpft s6FsZrYvHIYZMZkwKC8YPYV2RRTgWNBbCd3RVIGcA998slXuXI8PPu7VBdNtQK4tmw0YKjRoKVQoYlsD Nlg6XErfWG9XjAKmKHeZwk9emwAqmzXWl8IkhnQoyTAIBHAbVEPIZDVvb4xakYLbMQMQTPLahUD0JlJf EbMtYMKiBEd9AHNSXHyEKpEhP9Pjl4TnOjG3JUGcBv VlYBinLHEoRlQ8QY33mSgnGM0RBFLwMJRbZD03YJJfYPRuDo3OMd1GMjQiFK3vqf9FNfVdMNKwOocOVf u2GBcoLN8WjXEbW3NgdBBqi8zNRsOiZ5FETDPzUIYiNt9TSYIbYbCzASVtUStxXU0wWCJbRXOYnUvkfy V4ZZ6VHO4zfbCwSU3HXxHwRv1pUw0BHjQsY1TaR2Mw MLKcHLZJPXlbMG7PRPffNF5qIL2Ta5XErUIfnZ0vgz0XVURtJCQzAzyhty5KHsfsG7H1fNtzQMGiOkOu STNNYDjhKF5OKPBcARG1LHYySGQyTUQUFhElK82jSJ2QV3Yse98uGqF6BWUjUwTvSWvvTJ91vAbbkaNh lYRzfBxdJH5LTs0+DQplbmRvYmoNCnhyZWYNCjAgMz NXGtZcWGKeCDRbHUQdZgF6ClWrQt5LKOKiXUVpPJPhWlMlNTLcWWXbTTahWZFzZDV3MPf2SUXqMYRzXN 7ZBaUzLZDhCOe5YZUnBKEsQVHyvj6VFFHhFWIiQEU3NvKaJNCuMXTjMCftTDPiLHU2XLI3XJWsIHDjHK 4IQeUxUBCaCLW7RnmfGHKbJJUsop8YVCHnQYIzXkzi OBIcWAYlTCPbFLqzTMPxMLV8LXNiLXPxWWIcCU5SRuGsXDItORQoLXrfXQVgJVZlsx3YSUZkCWRvZTX4 HgEpOPIzYIDlNAsqICRsLFO1YLYsAYUmJGClTI7KGqBtKYMhPAG0QDKcGAIxVRSwsb4HSGVtWCIjFIw3 BEOdIQLcDIEgZMepWMKnOLU7TWJ6UUPkJPTeCX7DKu HaBUAoVhYhNTrnBGUqGCPtnw8IGVMaIBSyUVOySZGvDTOrNLQiTPvnLZKmACOnOjr7NWCxKSDcZI9MBr LvTWPtUvTcCXIhQLWuEHIytp2EBYCwSCMbFIT3FWOsEBEdQYQuHGlkHLPzCXWeYbP0VQGiVPBuQJ5MOd QePFIlWnKwIsNpUPIyBKNvlc3ZWPByFPVeCtAzJDJf HJYkYYGtCJbyFPHpNFCbTvImYWEgIQOjPL1OXtYoOIPuMqK2VsKvASJcIESatf3YYQPbGERmHYTpDpVb DKVcPTOjCXqdPHEqLGI8VOGhJKLnNMAmXB7YEgSpODDrVvUnZvesIWAiMIOadf1IFTApJTBqGGBvFhPo XANmNZBxUIxuNZHaFSN7AoL5DMPrEQRxBD8MDhHkJJ HzETefMSWwGJDbAIBlhq6KFJFxHUA6VzBeJLAqKOQsKXDxPZlvBXSjATN1PXM3FGJlIVGfRM1LFkFkSN EpIIndPsXwIUNiISCyoj2ZJEQbHGW3PKT7MhAcLEUuUWHlXTp3tsGkmUMwERc5BU7IS1IhlxFxZiYRGd 8Ln997XUT9NKMvPn9HD7vcPv9cAUBaRRCXGh8TDBz7 Llq4EYX1XBRdRep0WtW3TdG3M2GwIhemHsJbXCZeNbS+CVneGFq8BeIaUHZgFEjmNvY2PRmvLSSzMYBp ARP7EYJ6Ic8pNBDSGy0+LAxcaUWmnThxCLFOTpB4UFBnSDocKDUPSv7Y ID Date Data Source [id number] 01/08/2020 05:13:35 PM EDT [facility] Name Value Range Interpretation Code Description Data Fide rce(s) Supporting Document(s) Discharge Summary [facility] WNNJMa4rAlHLUnBb26/QRDyyJCBms2EiECoqBIr9ONypSMDsY4DxACN8yK2mAPE2JBoCPvClQzXsTkCl lbm [file] ICAgICAgICAgICAgICAgICAgICAgICAgICAgICAgICAgICAgICAgICAgICAgICAgICAgICAgICAgICAg QWOeZNIpCWRoVMKeGZPxZPCzAIUnVGZbKRTnTWEzLEWdKMGdXFJbGC1RPGBpNRPmTKDkCWXvAPDjRZTk ICAgICAgICAgICAgICAgICAgICAgICAgICAgICAgIC SjWJObGBFgSJPyRBCkGPWnFEQlUUEmZOElRHHuSTHrMNKgKSEpILXwNSWtAEJeXEQmWH2DPSLsZNDgVB AgICAgICAgICAgICAgICAgICAgICAgICAgICAgICAgICAgICAgICAgICAgICAgICAgICAgICAgICAgIC AgICAgICAgICAgICAgICAgICAgICAgICAgICAgICAg HU7UAUKnPDFjITEnRBQaKUSbLDQbUHLrOFNoULUuDADuRTHlWUNvUJTjQDFkCAIlZFHmDBLbSTRsMEMs DOAfNJAbOGLyGQFoZJTgAXFyASRzDOHbMGArVNRaQGIuZYXrKECpITTcLH7OPZMjNVUpMYCvXUDyRNPg ICAgICAgICAgICAgICAgICAgICAgICAgICAgICAgIC TgMEUyQPKjQHPqMSSnXTCkAIIpPFYzMJHzRHSoPZDqUCTdZSOgFNJiDKKdOFNbWSExOVEpIL2BEVLhZO AgICAgICAgICAgICAgICAgICAgICAgICAgICAgICAgICAgICAgICAgICAgICAgICAgICAgICAgICAgIC AgICAgICAgICAgICAgICAgICAgICAgICAgICAgICAg FUYpMM7RPCXkFPArUUWhWHVlXCMhJMHpXIKmAQWlDQBrRJPdQSPgSLWeFTVbYGArQTKbHFExDQCvIYRn IBCmEDXuQSMlDSVaCWNmQIOxEKQeXISfPXUeBIPtFOOcAJXnDCHnMIFlOHXqJB9XYBDuSETbAQJoNBKg ICAgICAgICAgICAgICAgICAgICAgICAgICAgICAgIC VbHCShUVYlKCIqYTPjADLhOKMiOCCzGZVhDPWtGMDlATQfJDUlFEVmGFQgWKGrNILwABZyBDAnPU0GHI AgICAgICAgICAgICAgICAgICAgICAgICAgICAgICAgICAgICAgICAgICAgICAgICAgICAgICAgICAgIC AgICAgICAgICAgICAgICAgICAgICAgICAgICAgICAg NNNdPLOzWW0VRBTmUAPaCCHvGKDeJTRhHIImVXLgFEIwWJOyCBUpWPLfNIZvLWLoYICfWDWhLMAzHROm CFZlJLRkQSPzEHOeFHJdJBVuKCYlGYIxHGCcRYMxCZCwULYxCMGxUSGsUDSqYLNzCL2TTM85cKNpv7N1 XYPpPX3ibxw/Ua3GOTlkpnCklHXbGS4URlQfVT0qgf 6BCpHmGW2tmh8KZBiNEaPoD7J2eQRyIDFgALQLViEeT46rJZrdZf74UMlaDCKdYeSbPBu3Ul3LKtDdW7 oaVSDjMaP3XDHeDrJ0DUGbJgF4IAMlJnPyDOSpMIDyWB1WUXGeA711mzIoMV9WEr7SQiZyMY2sts8JBh DjHITvRafNDte1XYcwHQ9WdKXcgWAtUuGdUUMYTaGo H6fqp7ZjOebwTOPVLQqtUU3Cn8XwePHjDMh+Dr3DZS7xz7ZiQJyaDdBlBO9tge3SAOnYAeGxR3QwcHem XNQvv5HcKOUgNPUGuP5tQOS6LTC5IEMycroncFbcVCjwB1gufimeVFXpFIApYk6fQC2eRFSxXWLiDvHf XXAPVB0FSTCvAYWkkMVyJWWhPNXWJM9BBXpbINN7QB FnojUqaBRrIWikPX9MJVNjomJdIqYoHSGTHGn+Qw0EDY0aw2JyRHbvDKToOS0rpb3NUIoNHfVdD6E5jN EaM9L5LWbkKv8STJMfRKTtFzEfTVFQZGwkGZ3OYU6zjlC5AA2QwRCuRYPiMHUkaHUuBJm1V51ehUWpLE pbXH6QDAT+Gerardo+Ih3TYEDsRLOdONMcZmTbOCJEOsRo Y6ElU4PTo2NgJ6QxYB04pIkaczIxMSpbLU2JQS2dVHYtIQSMCX7IrROsmV4dahOiTlRcHIGWMrKsX96d lHDgPMMeXVS9SQXrEb8VJNZvJ4PtjyFyvZqdrrInPRQaWJQBMP1SNLwiqjKfeQYphDwhXN95lKtmIG5X Mk5DCjIyEF8ehh9SpKKiQg7LGCAhLV0YBYKsIESuMK GwHCE4RVTiAaEjXEeaOPGoNXJtNLA3JYMpKVGkQE6DZgMnNDFoBkVdRVGtNMQnAYYbrl3KSZKqNTJhRL r8TYHnTSWuIIRgTZvlWBZdYWJoIGZ9ZFCsHXMcDN5KCkQrVOVmMCJrYGLhYVAwTEAbai4QQYUdLDUfBU L4MGDvJCBmLRGzCQrsLZCdLOF2EyZhOJKeLCXcZY5A PoDwIULxPEz5OCPxNYNePAPaky1TUVDtUQSlOLBdXSFoVOBpOOYcWJvjHQBtMYRxIxW0YICnCXMyVT3C MlWaFJSfDAS6SHiwTYDhBZPjgt2ALDThEZOsNQbnCYFpBLPxJFGiZRvzLRAxKKK6PuY0JCDbUFGgQP1D BkVpOLOdIWC5NbFuZVJlXUEprx6BUEJmLSNeTcD2FA OhUPJeZXVsLUqoLQFrYIG7SYS2XFUeBOHcQG5JRdBjWJSsCGhePLQjKJIlMYNfpp7TEYCcTOJfGdQ7LN EbOUEyTRVdFFsxTDMiWPB0YNV4UEAxSJQnPX0SYtYuBJOiTSg9DCWoTKJgXFJbrd7FBLVrNYNhSSjyGO SyKSUuDCTtKSkuHCFsFUH6Anr5GISqFCKnSD1RScYd AUGxOJc2WYyiLZVoLCScty4ZFOKiTNOzFVN9IGLdSYIzMJCjSQijXYZzTKNjQbA6YYXeFUGqHN7PNnJx RNKgObHmMKNxKHJvOECmvd4CPQBqQNRrWyT9NsYfKCDiZYOxKOikYMSjKLKaKsZmBSKbMOFqNQ8DBeZe AJibYXVCZpk1INmfS2o8EIDuUW5TE3Rpj6EaLvzlJD NAFEsoUR1dhoQiPFSbGx3IY7rWGyyhBnQkZKApSQX9NHItKoU8ICGlLKN5CNNvXyAjNhU2CV4dHLI5IR Y5ClO0ZOd2MdGtKPH1AMS0HWE2IVZlDzSkLXNnKvTrUU2BMm4XBbS7LKV7aNGwSg9ZCcB5MSRXFdJtKB 9GDQo= ID Date Data Source [id number] 01/08/2020 02:32:29 PM EDT [facility] Name Value Range Interpretation Code Description Data Fide rce(s) Supporting Document(s) Progress Note [facility] WKJNPh2qXeMLGgCq38/PXErsRJXrj6EwMAekJDt6WLirNDWtP8IdKMJ1aP9iZBG8JSsQGxFqCqDzHeCy lbm [file] WkJtRwDgYDNpHlndKWUlFtU1Dz8hLHXKYw5+RPtndCYpoQwxPABUKqW8UiU9UInjLRKKLb9B ID Date Data Source [id number] 01/08/2020 09:00:59 AM EDT [facility] Name Value Range Interpretation Code Description Data Fide rce(s) Supporting Document(s) ED Provider Note [facility] WQEHGr0vBhQETdXz92/VKQuvNUQzs4TsBKkgPXy5DVebJZDoN9TyQNV5mI3jJMU9ISgXIoMsIvXsYfCr lbm [file] PpaRtwMNIZHMLgjXLkGKBDb4YouzQhbPIWCDQ8mCdj UiHkepucZUPICJV3JERtPmwrPyImFBIdYWbrIXGLLZvXAmStC6Ldh1KyOzDuIOHlSAUuS5yRExDlTKUf NxKmbSwoIK8BZwWiX2FiybBboEF3NQJiVTZXLmBfW7LnHWKcSGZaXYMCDGi+Mg2VJG4ua3NoVRl2DgPy RU7wef3SBLwNZyTrS1Z9lMWoY3G9JRtxTu6KQHMkTP AzKwpsSUSKFTcuDS2FGG9nftX1LY8PaMAcRDItWYPcyXCwKZa4H46xlQYkKVuoJJ1PPWR+Gerardo+Pg0KIC HzLDBnIDAyWgHuICXOSrPnO2HtK6JXg8FlZ7LzGJ73iEnibcPoVEajTW2QIG4ySDNlJXLCGX5XwNKwyK 9kolU3TGHwIYSPIwZlN36exSJmHAFdQHTiYITrCw8O TEWqX8KnwtIcgRlfjmJbGWOyFCAMTE6PPZazzbDfeAIvmDzwEW31oQxeTE6WKl1ZCsHcPY8rgl4FlNNy Pn1JJUS2Pj3ISDPcQNErGFEgMTC2XBOcJpCkARbiGZXqDGJnVUJ7ILVrOTKhAA0HAmCpQBNcUKr0WGIp KYCsDGHymq8NUIIuMOQ8FBO5LSJrLLLuKZGjDQrnFI WdJPTkLKJ7ZSFhLXWlJN3NOeFtFRAbZPF0DlDiGSLnFMFipw1IRSOmYXCsKHW9HsUaHHLqVMDyGYzkBH MsQVE4FpU7FCHeUGPbDL6QTcFgLZPjVTU0LzFhFOMhVVRlwy2GBQNqARClUTGcCAZgCFGzMHTrIXxfOT YtHOL3PJH5ETVoNHHkCV4BJrIaWHXgSWCiLpBzZWBm JKQrxd4RCWRwQKXxBgX2WKRxGKNwPQKyDFnoJKFyWMJ5FOdaKLRsDMTnLQ7LQbNfSIAhDSI2XPRxCBOr NTKfqg8QAZIrMVWnIGjjYtZcBUPtOGZlPStePEIwVAAsERN6SYSvQGEiFS1WXbJaBJSiZuR8EjuvICDk UOIsra6TWKYhEVLbZyu5LLSiABIyYDLuIVmsVKWvVI X1CPSfEIPbLVMtCP4DOjCeIEIlXoBgPvquXXYyIXJyad3DHVTeLVLxVYD7ZBPxQAEtQCZdRBdmOZWsYU P9Eio7CPKyPWJkOZ5CYfLkUYCzXpU0PXNqUBYeGNTars3OYQYmBIDzOXf5NbMmCAGzVHYgVZryFDHeQN ZwZNW7WRNjGZVrNU4LAkWjAPVaVbJuCYKsHXGnJQXq nm6NEMSuXNUhOpV2KcVvWVJhHWRxBLrrCDMoHCGuXMu4KZUuVKXdPN8VOwSdWAFcMvS6QwMfZWObRWNk vi6LTARhGENwBzLwOiSeRRWmAHTiFDfkDTBbDRJjSSY3CRGiRFRlUJ7VEoVhVOEbGVAqZZWyUNHyRRId pw9CQUJuXFA5RBZwFKXxNRTkEBDrGHqyPJGxKDV2Gd O2OZStHCKbOM2HPcDnFPZpMXX3FyKsOHRwPFJgck9OAKTxRXL9ZeYuWdKcBLNlTHTdOSsnQIHjLZR4AP P4JWBvLFTzFN1MZzPxLIYrKGlbGHKqLVHiRFSzxn9GHQMtZQE1CcFmFhVxQEWfZVZlWTvkKHUyFRR3VH S8EMZoSVOgQL5AUsYaZCVlTQavJVujMPHiTWOauk3K MYSyWKO4FXLzJOXtRYDoCMRbLFvhFOKmMQQ9NIt6FQFjPNGtZC4PAcMwEGOnXJd2ObPvCQBeLWLmte4J GMEnNSV6HHy3DvBxGAHfZJDvGXbwPBKxEDIqGBBnGANkGIAxQN6EVdYhUGylIJAVMth3VUmlY0a8MRV8 Rl6ES6Zml4TtTXHuFWPTKZhoQF9yqnAfZDKfWz0GT0 tEIgi0WYPpV0PhSXZ4WcM3XLRcYsm8TDYyA1CqPHKlBst5TG7lYRtmEKL7NTGzUjvnNDMfCgUdOZWjMA NeZKSrJTRuQDYvMdZmDE2YDg2PSzH0ZMD5iLTnLu3DNQZzYUHHQnRaJC3CLHt= ID Date Data Source [id number] 01/07/2020 09:51:13 AM EDT [facility] Name Value Range Interpretation Code Description Data Fide rce(s) Supporting Document(s) Progress Note [facility] PDUODc1uJvTFDuZf45/DBGrvUZHoo2VnCFylWLi8XJwgJIWfJ7TmVGF7oI4hVLF9NTgLDaZoHyKfHoLl lbm [file] [employer]IST[employer] OFFICER+Ug1FRIWtAMo0G3U5DUAtTYa1X5MFH0DXWZWuDU mlCOrhWUDdQQh9G0Z4BDLeB1FZU1Wdaaozjt7+QJ3LB90FEAUrRTz4N2Z5gCWgN8C9jXeQqMK7GJ4VPL 8BkFl8rGUqjW3+XQ0CQ4OGYkXyJLl5Q1S3dOAvE8D8iGfGiKV4QP6CTF2NqDTaMDYpdfZoRm2iB9HKGV vZXuYHJGO6RW0VmPQpQO1ZxMVMO2NohLJiWl6tAAri bBSqfD4xJs1uCKjiNB5DBpJJBJfFQYX6FN1SvYBjNX4WcBRGH9QwrMYwRw3lBMkfyUXqza4+OI3WZKOf Wk2KLm1+VKxftgDiJkhUWtB1GABib7NiITo6TT8DSO6ncDecSXS2Gs4BpWP8bBQpG7zADH9GhNPkI96r mHPoEOZkFq4IGkD7uqLijF4WLA39vVGfv9A8ADIwO9 dhJNytn84rQCfeZNpQGG6uUALCDUkeYLbnOFV3RkGdlfhuMCOaUg5PGeFuJIn2kK3wfBU0BKV6EqbryL WyRTbjUeSrGmUoSfM9rRojdfv8HZemNE7xPSluvrsoTVKeOew+YVgeQGPpRQNcIoxWRIPgrX4qqyX7go PmIAresUGmMy8la7q7RwfnQh7cKu3lSIe1HzHoLoZh NEXyIm4ssU69VWdcryXtQm0NLzNtXJN3D9UiJztVKWZ+ISxsEOwweQw0tPPfLLQoKy4OGWBlTJWzYHDv ICAgICAgICAgICAgICAgICAgICAgICAgICAgICAgICAgICAgICAgICAgICAgICAgICAgICAgICAgICAg ICAgICAgICAgICAgICAgICAgICAgICAgICAgICAgIA 0KICAgICAgICAgICAgICAgICAgICAgICAgICAgICAgICAgICAgICAgICAgICAgICAgICAgICAgICAgIC OcLMMdHPHkWQRlYSMgRVPnMCGcJHFmXQVyYWGlRUTbDBOnAWBcDHGrVC9ULTMjMILsTLJwJLBlSUOwUM AgICAgICAgICAgICAgICAgICAgICAgICAgICAgICAg OGShNHCmHDTwBKWxREPlSHUuYFTaKBHoJYVaQWKaRFFzJRWcVJNnEDKrOHYxWOEoPSZdUM6GHVZqWUSm ICAgICAgICAgICAgICAgICAgICAgICAgICAgICAgICAgICAgICAgICAgICAgICAgICAgICAgICAgICAg ICAgICAgICAgICAgICAgICAgICAgICAgICAgICAgIC LhIP4NVEAlYCKjLURlAZNmPCUoPXYyZZVeMBVeUVGkQGMsZPQoQISeRFLaYCCySSBzSWDvESAyWDLmQE LyNUFuAMYxEAYdCXDsLMKvNKXqUOFkDTVgVAJnOLKxYTCbSOZkUHAkWVXjYF1HARHdXGWuJTBnEZGfFE AgICAgICAgICAgICAgICAgICAgICAgICAgICAgICAg UXYvSAHpRLFuUBDhEHWnKKHvOZXiSDIdUCWaRFUyIIItGSIdNEFgIXAlEGKdHMWrAELnOOZbWJ7MKXQi ICAgICAgICAgICAgICAgICAgICAgICAgICAgICAgICAgICAgICAgICAgICAgICAgICAgICAgICAgICAg ICAgICAgICAgICAgICAgICAgICAgICAgICAgICAgIC SmDGUyXO6ORWXwAHNzQXPqQMQmLWMpDYJyYSBvEZOnOWEnOBEoONZwBDWhRBLbJKSsLXNsTTZwCDGlMJ EaQYIgMKYuOFYaRDAbWLXzKVAiQXShXUGlCSDtMFKqXYFoFADdAFMzLBThLFAqAW0UOGWfEBLmBOUpBQ AgICAgICAgICAgICAgICAgICAgICAgICAgICAgICAg WZFfTZVlRIWuTFNbUTZpVGNeYVSeJHVcZMDzIWMhBHJgUZPvMBAbBQDsWAMpNBSpVKIcNRDfJEWnMV2D ICAgICAgICAgICAgICAgICAgICAgICAgICAgICAgICAgICAgICAgICAgICAgICAgICAgICAgICAgICAg ICAgICAgICAgICAgICAgICAgICAgICAgICAgICAgIC BjZSKfJNVhQA6OWK85iZPrc8D8YMVzSX3dvyn/Wb4APMxdfvNpfBLcIH3KXkBzIV3bap8JZoXgSX5vyl 5SKQkLRkJdG9N7iULsMQNaIWATJvGeC00oYKgnHr00IOgjIBNxRtTmZSo0Bg5GMwLhB2spNQBhWpC7LS OzMgN4UMBxDpJhYHIwWSIsFH4QUTXkS806cuOpDf5X Qf5SFvCfHH6hug8ZLxwqMAHyYtkFTps7GGgrKN7XsEQtvZZiJZKfREUROkPkP7qzt4IyWffmOCVYAUat BC1Ro6RqmROcZJs+Ht5IYX2zv1RqCAgtVZMnTK2nqq9OJPpRPzLtW9ZahHukORVhj4awQCReJP0pbHTn UIB3SNNwXDotydNbrlRPWX0pf4uwTBAxK2csCorjZG JsMUCpGh2uCe6yEHXoOYQ2HqG5DXDWZM0KJCZtCZCotVKwVISeHWSORC3ESJhcPAG0XIEiefOisPMpCC uaOK9HWHFagzPfCzdjMOWCLWd+Ln1RRD3el7FwCCx3POXeg0PzALr6NN3MSGTsWAvfECLiUO0tl9WmL9 O5LfU3lHMoU9jnfgvxQ2SjtuDuzeNvHILiPGNcFS2S IO4NKQ4SDEXcCJykGS2FXYH7MSi7InJ2TGHaCUWsGXBmPC6jDHbxYI2UNFq1E8GrQ1OYEVQiTNPOHHSm dHI1YOOUTf7WQ4NVBvtUTANNJg0APcOhQ1SNF4cHT29XDU5JYGQ+PiANCj4+VEdupgWwIdtJUoE0QFTs c3JdCXh8ZD8YDXGhVXntWD5ECJOjzS4vAYrqDO0JSi NwPKYaUXUFLyHuA27uzZDnBDo7M2CcRzXwTURnHciyZMWtXYybSiYnLIPpXeCnJTxbQV6+ID4+DQogIC 9SABkcxaEtCHNpOp5KOFSmVUWcPK2oCOEjUTUfM6N5gXgqOGWKZcXqX2ryxjdhRX0bODOwQ998kRywva MsKDX2ENWqIn2KNRScFEL9FVXdjDLxJwVfKDKUNGul ZN0PkFMaUOT5eF4uEHadYNJsNAWaT7lTIiZazHziNX10wVfsdhGsxKEzQCw+Zm6XED4wc3PqDRx9peRw RQetWOAcDSnzXKNqQAXpLSIyHNZ9FAW2CZTMZgKlZRDcTMShXHadORVqRNTgib2JRQFcFXBuYBwjJLEd CTKhQBMxPOqtGJYsAEA0QTa6JXBnMITeDY0DTeApWJ YtZFGiFQmzXPYcPDOhvc7GZOEuHMZsNkUcYPFiDRYrJPMuIEccASEfHMI3XWD2FDMcNPDnAU5OUeLfHS MtXJR6UkQtAEFwJECuri9DXTYzHXEsKuBePCUhHGFsULWlXRpjZMXxCSR0NGG3NWSmOSYnVU2CBvJlIT XhUVjgUOJcWLDaTSLsyo8VMTJgZZNbXYW7JERoOFEy KVCeQTrjGVIcORAsFjT1KLBtBDPrVC9FAlKmHVTxCOQ7UUNeZCRfFURrmm9PQQJuCCPlGFI8XTQwIDJy BRUnAZocDDEzUETeCmY7BULnLCAsOA1VWxNkWMKhSHB7TMymVBIgHQOmxt8HISIqRIGxJyJ2JzZmKUIc JAKpPUrrFUDlXDFrCJx0HNWbATUfVY5OAwWxSYGxGa G4LQTjXOCaEEDmfq4TGCRyOCXyRYLfEBWhEHHgTPChBAytXQXeLLG2VfKlBBAcSJEmHW3YVySiBHPaFi T3UYxcYQXaBFYkmz5SQNQgZPFwVKG4UJNpXYBoSIUhRPxvYWKePSN5WEP8BHXwMAQaMK4DVnHaVOVdVa F1TDhdIFOgWADxkb6EEPYfVKNaOnQqZVZwGWTgNDVb ZIqsDGTmQVB6LEs9MNDtFEKzJJ1GLwSiYVDkLbt3YGWyXPVlKJIons8JOADzLVUfBji8MORhIMXfOESu WIx3qqGkeFQwOTj4NZ2ZF3EduzSiAbIVPv8Vl699QNM2HLAcNb1TV6mfQb4xRZLnWFVSWd0YPKp7GEI7 AMhkFON3UxViWSS9Orl4NkToEwlpLZvvFUN1Iyy+ID ozSee5BZReFoSdTpJ1FMDgNoFeF8OtFOBiGVKeKletPp3rMZGTXo2+BQmarFLylSpsROBATzV4MmF8DN ekNNRLYl7Y ID Date Data Source [id number] 01/07/2020 08:39:41 AM EDT [facility] Name Value Range Interpretation Code Description Data Fide rce(s) Supporting Document(s) Progress Note [facility] YIYHYs0tBmPJWwOq77/SGQvrEVZfi7CqPKleMTk2QRwuULMcL4PcCLX5zX9iIGO8HSvLCzVxHwUjMpVk lbm [file] AgICAgICAgICAgICAgICAgICAgICAgICAgICAgICAgICAgICAgICAgICAgICAgICAgDQogICAgICAgIC AgICAgICAgICAgICAgICAgICAgICAgICAgICAgICAg ICAgICAgICAgICAgICAgICAgICAgICAgICAgICAgICAgICAgICAgICAgICAgICAgICAgICAgICAgICAg DQogICAgICAgICAgICAgICAgICAgICAgICAgICAgICAgICAgICAgICAgICAgICAgICAgICAgICAgICAg ICAgICAgICAgICAgICAgICAgICAgICAgICAgICAgIC AgICAgICAgICAgDQogICAgICAgICAgICAgICAgICAgICAgICAgICAgICAgICAgICAgICAgICAgICAgIC AgICAgICAgICAgICAgICAgICAgICAgICAgICAgICAgICAgICAgICAgICAgICAgICAgICAgDQogICAgIC AgICAgICAgICAgICAgICAgICAgICAgICAgICAgICAg ICAgICAgICAgICAgICAgICAgICAgICAgICAgICAgICAgICAgICAgICAgICAgICAgICAgICAgICAgICAg ICAgDQogICAgICAgICAgICAgICAgICAgICAgICAgICAgICAgICAgICAgICAgICAgICAgICAgICAgICAg ICAgICAgICAgICAgICAgICAgICAgICAgICAgICAgIC AgICAgICAgICAgICAgDQogICAgICAgICAgICAgICAgICAgICAgICAgICAgICAgICAgICAgICAgICAgIC AgICAgICAgICAgICAgICAgICAgICAgICAgICAgICAgICAgICAgICAgICAgICAgICAgICAgICAgDQogIC AgICAgICAgICAgICAgICAgICAgICAgICAgICAgICAg ICAgICAgICAgICAgICAgICAgICAgICAgICAgICAgICAgICAgICAgICAgICAgICAgICAgICAgICAgICAg ICAgICAgDQogICAgICAgICAgICAgICAgICAgICAgICAgICAgICAgICAgICAgICAgICAgICAgICAgICAg ICAgICAgICAgICAgICAgICAgICAgICAgICAgICAgIC AgICAgICAgICAgICAgICAgDQogICAgICAgICAgICAgICAgICAgICAgICAgICAgICAgICAgICAgICAgIC AgICAgICAgICAgICAgICAgICAgICAgICAgICAgICAgICAgICAgICAgICAgICAgICAgICAgICAgICAgDQ a1H0jsENTiTRWjKP4pAQf1Qh6+QHvQHjLgEXZ5bkFv hI0AGB3eq6UyTHilRQBqp9YjAQw3UV2VPAWiBNpgKG1MFNdndr4JRCXoCUNtyUJPh6igKjPyTWT5GCUb UszuXK3PWMKsZ2fokwPuCNTzUYEYAM3WWeYvP7WreA75ARBIXi4+CFhxbzEoDsgDIyK9JYYpj0JcRNh6 KY9WHXZrLquil6PaRiZwFHBSEZhlVZ4JADC5CBJjCG WtGq0JZWSeQ967giVbPU9WQz8PHwJxOA8vpt7PKpPxOVSuYtbJPkk7NSizSX7MhAGkQCsNhr1lzqRlpp PXn2HkgaMalUXSuXM7NL9vXWLcXlOdTNWov2C1qSXlLZYyOA9UNGP5PFKeVvofBkCtBMAzNOlwDOYVXN dABvPrE3Rwp7ViToA8MEGsXwUkMItzDYHrRXxhKQ71 hDfqJW8JPTGoHXCpTQ42XIP7LKTeLu9OOd0BFjPkFP3umo9GEbVdRJLuOquGPkk0RStuHL9EmSNeG4Gu nXTgp0bXXhRoO7JKTOF5WBZtUw3OAVSaRhApYVOeAQdaGJ8zRUGdHQVHoQyetdG7NA3OOI9dysAnGS5O GuMtHz8oZs0SHlQtX8GfP0IqSMNmCNJEOAhrKS0EMW ndXQ3hSC2Sj6RCgFAidI7mfg9FGIPjPQTmJuqinz3TDujoU9H7nZweXENfLLbyLYPBKLokNZ9OMOPaAM Y6YMAtSTLvTLRVVeQuW17uND4PT5Oul78sZqJ1PGVdLfGsCJdpHZ41qKvvwsSwwTZlaFtrSG1JNe1+DQ plbmRvYmoNCnhyZWYNCjAgMjINCjAwMDAwMDAwMDAg ZlS3FeOuPe1VMJUfEHZuGAWaIwDnOXHiRWPtHLxvFRWmWKR1Zeu7DKQgSNPvFY5PQyTtEZUoXTh4DLKw RRBtQBKklk2ZOSZfPEDnYKB5ShNePZDlNSWlKAhkBHKlPYGeDZVnPIQhIDLbID4CSiBqOBKfKRA8DKAg SYGoXRUibb2LGBHjFZMsUjO6THRtUWSmBNWaOPltRQ UhCUVzBIolFZTbMLBwLA6TYpImCRGsLCAaTKOrEKWtXUXyej6WSWTyZTIiJYIiZRRtGKVcHOStUQcsZA RhQZW1ApGrIHGhJIIgLQ6XIfZnUXIrDYJlAXrlURTsBUCvtd0ZZXNhPEBjApw2GbEgAFAgXEMiKNbeHA JsZNL3OZN0SHSbEXIaYS0YAoInFKVmUBesJfydWJMc HYYduw8KLRJnRNBwEmQiSkYoIPMzHSHpJNhiFQYtLKQ6UyZfRHAgEDQgIF7SWcFlJCViIDbnZgMjBFOe XIIkcg4OEZWlFXFlSPMwJJFhIOLmVSPpFClcHUAbNXG5IMwsXNOvABYuJU7MTzSiZADaEHx1HuQdCFRe COJofc5HyKMddWbllu5NFCgZVo1UsNshXEXiYOvyZw 6ssCLcTIAfXNGITs0CjrUbTALjZXFRXDyjPZBfBKurCzprZpJjLJjiKMG3OsGlDJYlRSFtITCqChh7Da elUdB0EXWdHXSmY0DrHFQ5GAQjQbN3QCT1DdI7FcX7TRQ2SYN+TF9kJIb+Ww7Em4YiysL3aaErZIyzPQ f7AG5NBMRKN0NHYa== ID Date Data Source [id number] 01/07/2020 08:38:41 AM EDT [facility] Name Value Range Interpretation Code Description Data Fide rce(s) Supporting Document(s) Consultation [facility] GBSXNq9iEzPHBwUa53/IYRuoKXIqs6PdYTuaCNq4JTdvVQVsL6TvQCX3gD1pCJO4UGiHMeYpXnVzHxFy lbm [file] 32IRSE6pE4yiLIHafcSDsDFAhNOtnVVxr4kGVbJFCokWah/merchandise carrier+RxNCgcSUCCOiMBnBQfcWOEjCQoDVz [file] graff+U6+/9N2/J+2y3/ewJ8F9bO7x/Kscat0lCmRivXQ+LxJpSxxNrH6KILnTlL6P/sd3M/NXUrcc9iyRP Snqeq+Yl2a8/qDJfePRU7yqJ7xndKhSBa7AQS4Zxrq0OS894bf9p6WO7vn7O3a7/b6HO/SgUmgN51GlX 3lPlGeww8PG+eDiUn2hzpnD4E6f22+y8huI8euXI5t 3S9yfWOH+br1W+Zr2QBV2e+V16EOAVkoLoo9RSd5tY5ta8KA8vW9mUqC1+IB1eIKm4cklzO7vpC82M46 ryflBBf9zIhc0nT+pjm0WCheoowPlq4Z8XEgjx1FivkGyKb6gEbT7aEke8CIilgnO21or7P1C1e3Yc+B 8aaZjroxbEpx26h/hu/CVWjMSgiEg9lQdM20xj8n42 dT+0uzoMc/IJ+6+6U7dppPmwAlU5sZSLdcfZGlGbGKC9J3p8DmrCMPxiLIQH7hUMFmFL36dViWhyv1Rh 0p9kMq6H4JwWMFaGmN64txJk+FfvIT+AFNh/4RXBPtavGfNb9ykVXesy26axxuS2ojT8hpeVgxw5Pp0J yue7dBTW6ri8arulMjaEaFwUE+MdLtstfvvK/A/field research associate [file] ICAgICAgICAgICAgICAgICAgICAgICAgICAgICAgIC AgICAgICAgICAgICAgICAgICAgICAgICAgICAgICAgICAgICAgICAgICAgICAgICAgICAgICAgICAgDQ ogICAgICAgICAgICAgICAgICAgICAgICAgICAgICAgICAgICAgICAgICAgICAgICAgICAgICAgICAgIC AgICAgICAgICAgICAgICAgICAgICAgICAgICAgICAg ICAgICAgICAgDQogICAgICAgICAgICAgICAgICAgICAgICAgICAgICAgICAgICAgICAgICAgICAgICAg ICAgICAgICAgICAgICAgICAgICAgICAgICAgICAgICAgICAgICAgICAgICAgICAgICAgDQogICAgICAg ICAgICAgICAgICAgICAgICAgICAgICAgICAgICAgIC AgICAgICAgICAgICAgICAgICAgICAgICAgICAgICAgICAgICAgICAgICAgICAgICAgICAgICAgICAgIC AgDQogICAgICAgICAgICAgICAgICAgICAgICAgICAgICAgICAgICAgICAgICAgICAgICAgICAgICAgIC AgICAgICAgICAgICAgICAgICAgICAgICAgICAgICAg ICAgICAgICAgICAgDQogICAgICAgICAgICAgICAgICAgICAgICAgICAgICAgICAgICAgICAgICAgICAg ICAgICAgICAgICAgICAgICAgICAgICAgICAgICAgICAgICAgICAgICAgICAgICAgICAgICAgDQogICAg ICAgICAgICAgICAgICAgICAgICAgICAgICAgICAgIC AgICAgICAgICAgICAgICAgICAgICAgICAgICAgICAgICAgICAgICAgICAgICAgICAgICAgICAgICAgIC AgICAgDQogICAgICAgICAgICAgICAgICAgICAgICAgICAgICAgICAgICAgICAgICAgICAgICAgICAgIC AgICAgICAgICAgICAgICAgICAgICAgICAgICAgICAg ICAgICAgICAgICAgICAgDQogICAgICAgICAgICAgICAgICAgICAgICAgICAgICAgICAgICAgICAgICAg ICAgICAgICAgICAgICAgICAgICAgICAgICAgICAgICAgICAgICAgICAgICAgICAgICAgICAgICAgDQog ICAgICAgICAgICAgICAgICAgICAgICAgICAgICAgIC AgICAgICAgICAgICAgICAgICAgICAgICAgICAgICAgICAgICAgICAgICAgICAgICAgICAgICAgICAgIC FhVWUqQRXxELo2W1toRIGyDUWnFW0yAJb8Uj6+WCjVKrHsEWP7hcDlhQ7VNW0ko2EeQHtbLXFag4VwLJ w1JP0DQHBoOEoqJI5UJUuhrk3PGVUwFHZdaPICp0uj GwOaMQM0HMZnJpitEA8IRFXvV5whjyLdBPSdLJNWJQnfLTCSHOrmMHHYPVJoTOWvTzPxWlPvDTEjYD8K EWMoI746yaSjCV1VVc1LPaQrBL6xwa8HTjxmYWKkCptETtl3NRcjZZ0IwPOohBTzDIFpLJTUPwQfW1fc u7DiDpnsNBHACBbxFM0Wp1LagHAiRDq+Qr1SNG8xh2 SsUYkkNDUkAJ6eox3BAPmWTqHkB5IyiDipPOGpkhA2nAReYXQ2NOBxXTgttcYjqsYWWY9su7mjTQUjA9 qlCsseQEGeFPPkFm8zFb3jQOCtJZD3SqOwYCOLXG0ULJZeKPHmgSPmERLvIZZEHI1WLOcxYZT8QCTwkv XzyZJnIBmsLP7MNVVdmiUqAouqVMNZYXl+Ey5TAV3p c8BzVMadIQSyVQ3mfv4NXZyCNoMmM7D8nXIoY9O7HBrfYi4MWDKcYXSeDhBuHIAHCCelJE5UUE1qygE6 TD4RvECgWWWqWYAccZYiMAa8Y06wxNMpKPanHC7LAAU+Gerardo+Rt9SWOLbOHJdQZJqYrPtBFBKGyPcM1Tb H9LLj2YgX8IfJB02zAtahmBhVDzdWJ6QCZ1hZQUgDG ATRE1NkKJxnX2zneRvWcHtNNGGOrBgY57lsHOnGUPzGIO9SJRdMj6FWOHfM1KvgdIwcFgxlxLnZKRbMW UOFP1JYFdjfiTgnIJovBihIM61oEasRI2EHq2ILhZlKN0gbc9SuNHvXs1EGFSnZP3DWZKmIJIvUPYvVZ K4SWMvAcNmBQvdBFBoXRZwYGI4PQBkGNBqGS6EBrSg PVWxUcC6VKGjNWIkOCVdrz5RJEXoGABtBZVrBJTnHGQgNXElHKsmDJWnULGoVZR7XAJmXZZfVW4EUaEj LWTsYOHeRtPkLNWkMNTmwv0YEDKcXELpIAIwMPNgHAUdGVGjZMhrEXLmIQE6PcPxPFTnUSPhZT1CBfWn FAGeCLv3LVMeTHExHVHpjo3RWFHpCHEhZMqgBtLbRG FpTATxQAbgRDOvDHQkFQJ1YXPoOBHbSD5SDiAdMRMjJLF3YEysMMPuJXVgcx8ZXJNqKDWdUMW3SvQsZO HoTEYrLFcdXJHfRUM2FSh1FFNyMUOiMH8DChMcQNGvGTv0DEScXKZjSVPboq3QVDTrHYMoUOS9AWQiFU YtLIDtTPksQJGnCAH5IMKvHWXaFNFqDG2UIwMgVMUw AyPwPqMfQVTrJAHyix4TDGXiGQYdDOl4PvNcWNGmMMVwZKrgDTZnOBLhFHf3GWUjMHSkWK4EIlFmDQRt UrNtNtKnKQUpUCLsth4QGIQcXFNpEjt0EMUuSWHnOFVwGFfpDKVzEOVrNFz5WNOwBGHiKG8OJeNoUJWb QuHhZOBuNIOnSBTpxj1KEUYgDXGkRdCmOHExZGOuYP FoPMnrPLEmQHTdEpbuLGVwUWQzJE3ZSeLcCCXiHlMwMoPdDJUoLVMooe1MELWtYRXlNGPcSLJyKYTtOX HoXAzyVWAoQHV3TpW1ZCPeBXRnBJ1GYzZoHJNdYmM9YXtqMOBlMGVubx7CeFUfuZgqhb7WXYoNHe7GbO ibOWLiGKgrBu5ckKTeDQPmXZNFJm8LsjWqOIHwLEWD PBgkSTYlIAT5EKt2NvieOoPqLYBnGQPxKWD4DNVePrFpOtUtRHFpPtH2NNV1Tsz3A4H2WRJ4G5T7UML3 UYLpHXDcWITcJxU4WVA+SN3aEJj+Lh7Zn3OyciN3znGoFOooHnBsBe5HKZCWP5OAAb== ID Date Data Source [id number] 01/07/2020 01:43:24 AM EDT [facility] Name Value Range Interpretation Code Description Data Fide rce(s) Supporting Document(s) Bicarbonate [Moles/volume] in Serum 27 mmol/L 22-29 [facility] Chloride [Moles/volume] in Serum or Plasma 99 mmol/L 98-107 [facility] Creatinine [Mass/volume] in Serum or Plasma 3.79 mg/dL 0.70-1.20 H [facility] Glucose [Mass/volume] in Serum or Plasma 81 mg/dL 70-140 [facility] Potassium [Moles/volume] in Serum or Plasma 4.4 mmol/L 3.4-5.1 [facility] Sodium [Moles/volume] in Serum or Plasma 141 mmol/L 136-145 [facility] Urea nitrogen [Mass/volume] in Serum or Plasma 66 mg/dL 8-23 H [facility] Anion gap 3 in Serum or Plasma 15 mmol/L 8-15 [facility] Osmolality of Serum or Plasma by calculation 310 mosm/kg 275-300 H [facility] Creatinine/Urea nitrogen [Mass Ratio] in Serum or Plasma 17 [facility] Calcium [Mass/volume] in Serum or Plasma 8.8 mg/dL 8.8-10.2 [facility] Glomerular filtration rate/1.73 sq M pre dicted among non-blacks [Volume Rate/Area] in Serum or Plasma by Creatinine-based formula (MDRD) 15 mL/min/1.73m2 >60 L [facility] Glomerular filtration rate/1.73 sq M pre dicted among blacks [Volume Rate/Area] in Serum or Plasma by Creatinine-based formula (MDRD) 18 mL/min/1.73m2 >60 L [facility] ID Date Data Source [id number] 01/07/2020 02:08:10 AM EDT [facility] Name Value Range Interpretation Code Description Data Fide rce(s) Supporting Document(s) Leukocytes [#/volume] in Blood by Automated count 4.5 10*3/uL 4-10 [facility] Erythrocytes [#/volume] in Blood by Automated count 3.32 10*6/uL 4.6- 6.1 L [facility] Hemoglobin [Mass/volume] in Blood 9.4 g/dL 13.5-18 L [facility] Hematocrit [Volume Fraction] of Blood by Automated count 28.5 % 4 1-53 L [facility] Erythrocyte mean corpuscular volume [Entitic volume] by Auto mated count 85.7 fL 80-96 [facility] Erythrocyte mean corpuscular hemoglobin [Entitic mass] by Automated count 28.3 pg 27-33 [facility] Erythrocyte mean corpuscular hemoglobin concentration [Mass/volume] by Automated count 33.0 g/[facility].0-[facility] width [Ratio] by Automated count 17.6 % 11.5-14.5 [facility] Platelets [#/volume] in Blood by Automated count 132 10*3/uL 150-400 [facility] Differential cell count method - Blood [facility] Neutrophils/100 leukocytes in Blood by Automated count 82 % [facility] Lymphocytes/100 leukocytes in Blood by Automated count 10 % [facility] Monocytes/100 leukocytes in Blood by Automated count 2 % [facility] Eosinophils/100 leukocytes in Blood by Automated count 2 % [facility] Basophils/100 leukocytes in Blood by Automated count 1 % [facility] Neutrophils [#/volume] in Blood by Automated count 3.69 10*3/uL 1.8-7 .0 [facility] Lymphocytes [#/volume] in Blood by Automated count 0.47 10*3/uL 1.2-4 .0 L [facility] Monocytes [#/volume] in Blood by Automated count 0.09 10*3/uL 0-0.8 [facility] Eosinophils [#/volume] in Blood by Automated count 0.09 10*3/uL 0-0.5 [facility] Basophils [#/volume] in Blood by Automated count 0.04 10*3/uL 0-0.2 [facility] Nucleated erythrocytes/100 leukocytes [Ratio] in Blood by Automated count 1 /100{WBCs} 0-0 H [facility] Variant lymphocytes/100 leukocytes in Blood by Manual count 1 % [facility] Metamyelocytes/100 leukocytes in Blood by Manual count 2 % [facility] Lymphocytes [#/volume] in Blood 0.04 10*3/uL 0 H [facility] Metamyelocytes [#/volume] in Blood by Manual count 0.09 10*3/uL 0-0 H [facility] Macrocytes [Presence] in Blood by Light microscopy [facility] Anisocytosis [Presence] in Blood by Light microscopy [facility] Poikilocytosis [Presence] in Blood by Light microscopy [facility] ID Date Data Source [id number] 01/06/2020 01:58:27 AM EDT [facility] Name Value Range Interpretation Code Description Data Fide rce(s) Supporting Document(s) Bicarbonate [Moles/volume] in Serum 26 mmol/L 22-29 [facility] Chloride [Moles/volume] in Serum or Plasma 98 mmol/L 98-107 [facility] Creatinine [Mass/volume] in Serum or Plasma 4.14 mg/dL 0.70-1.20 H [facility] Glucose [Mass/volume] in Serum or Plasma 147 mg/dL 70-140 [facility] Potassium [Moles/volume] in Serum or Plasma 4.1 mmol/L 3.4-5.1 [facility] Sodium [Moles/volume] in Serum or Plasma 139 mmol/L 136-145 [facility] Urea nitrogen [Mass/volume] in Serum or Plasma 72 mg/dL 8-23 [facility] Anion gap 3 in Serum or Plasma 15 mmol/L 8-15 [facility] Osmolality of Serum or Plasma by calculation 313 mosm/kg 275-300 H [facility] Creatinine/Urea nitrogen [Mass Ratio] in Serum or Plasma 17 [facility] Calcium [Mass/volume] in Serum or Plasma 8.3 mg/dL 8.8-10.2 L [facility] Glomerular filtration rate/1.73 sq M pre dicted among non-blacks [Volume Rate/Area] in Serum or Plasma by Creatinine-based formula (MDRD) 14 mL/min/1.73m2 >60 L [facility] Glomerular filtration rate/1.73 sq M pre dicted among blacks [Volume Rate/Area] in Serum or Plasma by Creatinine-based formula (MDRD) 16 mL/min/1.73m2 >60 L [facility] ID Date Data Source [id number] 01/06/2020 02:08:27 AM EDT [facility] Name Value Range Interpretation Code Description Data Fide rce(s) Supporting Document(s) Leukocytes [#/volume] in Blood by Automated count 4.7 10*3/uL 4-10 [facility] Erythrocytes [#/volume] in Blood by Automated count 3.03 10*6/uL 4.6- 6.1 L [facility] Hemoglobin [Mass/volume] in Blood 8.6 g/dL 13.5-18 L [facility] Hematocrit [Volume Fraction] of Blood by Automated count 26.4 % 4 1-53 L [facility] Erythrocyte mean corpuscular volume [Entitic volume] by Auto mated count 87.1 fL 80-96 [facility] Erythrocyte mean corpuscular hemoglobin [Entitic mass] by Automated count 28.4 pg 27-33 [facility] Erythrocyte mean corpuscular hemoglobin concentration [Mass/volume] by Automated count 32.6 g/dL 32.0-36.0 [facility] width [Ratio] by Automated count 17.8 % 11.5-14.5 [facility] Platelets [#/volume] in Blood by Automated count 123 10*3/uL 150-400 [facility] Differential cell count method - Blood [facility] Neutrophils/100 leukocytes in Blood by Automated count 92 % [facility] Lymphocytes/100 leukocytes in Blood by Automated count 5 % [facility] Monocytes/100 leukocytes in Blood by Automated count 3 % [facility] Neutrophils [#/volume] in Blood by Automated count 4.35 10*3/uL 1.8-7 .0 [facility] Lymphocytes [#/volume] in Blood by Automated count 0.22 10*3/uL 1.2-4 .0 L [facility] Monocytes [#/volume] in Blood by Automated count 0.13 10*3/uL 0-0.8 [facility] Macrocytes [Presence] in Blood by Light microscopy [facility] Anisocytosis [Presence] in Blood by Light microscopy [facility] Poikilocytosis [Presence] in Blood by Light microscopy [facility] ID Date Data Source [id number] 01/05/2020 04:14:11 AM EDT [facility] Name Value Range Interpretation Code Description Data Fide rce(s) Supporting Document(s) Bicarbonate [Moles/volume] in Serum 30 mmol/L 22-29 [facility] Chloride [Moles/volume] in Serum or Plasma 96 mmol/L 98-107 [facility] Creatinine [Mass/volume] in Serum or Plasma 4.09 mg/dL 0.70-1.20 H [facility] Glucose [Mass/volume] in Serum or Plasma 93 mg/dL 70-140 [facility] Potassium [Moles/volume] in Serum or Plasma 4.1 mmol/L 3.4-5.1 [facility] Sodium [Moles/volume] in Serum or Plasma 137 mmol/L 136-145 [facility] Urea nitrogen [Mass/volume] in Serum or Plasma 80 mg/dL 8-23 [facility] Anion gap 3 in Serum or Plasma 11 mmol/L 8-15 [facility] Osmolality of Serum or Plasma by calculation 307 mosm/kg 275-300 H [facility] Creatinine/Urea nitrogen [Mass Ratio] in Serum or Plasma 20 [facility] Calcium [Mass/volume] in Serum or Plasma 8.5 mg/dL 8.8-10.2 L [facility] Glomerular filtration rate/1.73 sq M pre dicted among non-blacks [Volume Rate/Area] in Serum or Plasma by Creatinine-based formula (MDRD) 14 mL/min/1.73m2 >60 L [facility] Glomerular filtration rate/1.73 sq M pre dicted among blacks [Volume Rate/Area] in Serum or Plasma by Creatinine-based formula (MDRD) 16 mL/min/1.73m2 >60 L [facility] ID Date Data Source [id number] 01/05/2020 04:52:04 AM EDT [facility] Name Value Range Interpretation Code Description Data Fide rce(s) Supporting Document(s) Leukocytes [#/volume] in Blood by Automated count 4.7 10*3/uL 4-10 [facility] Erythrocytes [#/volume] in Blood by Automated count 3.10 10*6/uL 4.6- 6.1 L [facility] Hemoglobin [Mass/volume] in Blood 8.9 g/dL 13.5-18 L [facility] Hematocrit [Volume Fraction] of Blood by Automated count 27.0 % 4 1-53 L [facility] Erythrocyte mean corpuscular volume [Entitic volume] by Auto mated count 87.1 fL 80-96 [facility] Erythrocyte mean corpuscular hemoglobin [Entitic mass] by Automated count 28.7 pg 27-33 [facility] Erythrocyte mean corpuscular hemoglobin concentration [Mass/volume] by Automated count 32.9 g/dL 32.0-36.0 [facility] Erythrocyte distribution width [Ratio] by Automated count 18.3 % 11.5-14.5 H [facility] Platelets [#/volume] in Blood by Automated count 131 10*3/uL 150-400 L [facility] Differential cell count method - Blood [facility] Neutrophils/100 leukocytes in Blood by Automated count 89 % [facility] Lymphocytes/100 leukocytes in Blood by Automated count 10 % [facility] Eosinophils/100 leukocytes in Blood by Automated count 1 % [facility] Neutrophils [#/volume] in Blood by Automated count 4.17 10*3/uL 1.8-7 .0 [facility] Lymphocytes [#/volume] in Blood by Automated count 0.48 10*3/uL 1.2-4 .0 L [facility] Eosinophils [#/volume] in Blood by Automated count 0.04 10*3/uL 0-0.5 [facility] Macrocytes [Presence] in Blood by [facility] Anisocytosis [Presence] in Blood by [facility] Elliptocytes [Presence] in Blood by [facility] Poikilocytosis [Presence] in Blood by [facility] Polychromasia [Presence] in Blood by [facility] Stomatocytes [Presence] in Blood by [facility] Schistocytes [Presence] in Blood by [facility] Confirmed by [id number] ID Date Data Source [id number] 01/04/2020 07:45:33 PM EDT [facility] Name Value Range Interpretation Code Description Data Fide rce(s) Supporting Document(s) Color of Urine [facility] Clarity of Urine [facility] Specific gravity of Urine by Refractometry automated 1.002 1.003 -1.030 L [facility] pH of Urine by Automated test strip 7.0 5.0-8.0 [facility] Protein [Mass/volume] in Urine by Automated test strip Neg ative [facility] Glucose [Mass/volume] in Urine by Automated test strip Neg [facility] Ketones [Mass/volume] in Urine by Automated test strip Neg [facility] Bilirubin.total [Presence] in Urine by Automated test strip Negative [facility] Hemoglobin [Presence] in Urine by Automated test strip Neg [facility] Leukocyte esterase [Presence] in Urine by Automated test strip Negative [facility] Nitrite [Presence] in Urine by Automated test strip Negati [facility] Leukocytes [#/area] in Urine sediment by Automated count 1 /HPF 0 -5 [facility] Erythrocytes [#/area] in Urine sediment by Automated count 1 /HPF 0-3 [facility] Service comment [facility] WBC Cast 1 /LPF None A [facility] ospital ID Date Data Source [id number] 01/04/2020 06:28:22 PM EDT [facility] Name Value Range Interpretation Code Description Data Fide rce(s) Supporting Document(s) History and Physical [facility] JLDDMu9yOdLBRsKy98/VCCydBWQgi2ClEMlyDIe1AFekSLOxN4XhFQR7yJ4sVWP3ANtITrVpZvDaKyT2 lbm [file] CiAgICAgICAgICAgICAgICAgICAgICAgICAgICAgICAgICAgICAgICAgICAgICAgICAgICAgICAgICAg ICAgICAgICAgICAgICAgICAgICAgICAgICAgICAgICAgICAgICAgICANCiAgICAgICAgICAgICAgICAg ICAgICAgICAgICAgICAgICAgICAgICAgICAgICAgIC AgICAgICAgICAgICAgICAgICAgICAgICAgICAgICAgICAgICAgICAgICAgICAgICAgICANCiAgICAgIC AgICAgICAgICAgICAgICAgICAgICAgICAgICAgICAgICAgICAgICAgICAgICAgICAgICAgICAgICAgIC AgICAgICAgICAgICAgICAgICAgICAgICAgICAgICAg ICANCiAgICAgICAgICAgICAgICAgICAgICAgICAgICAgICAgICAgICAgICAgICAgICAgICAgICAgICAg ICAgICAgICAgICAgICAgICAgICAgICAgICAgICAgICAgICAgICAgICAgICANCiAgICAgICAgICAgICAg ICAgICAgICAgICAgICAgICAgICAgICAgICAgICAgIC AgICAgICAgICAgICAgICAgICAgICAgICAgICAgICAgICAgICAgICAgICAgICAgICAgICAgICANCiAgIC AgICAgICAgICAgICAgICAgICAgICAgICAgICAgICAgICAgICAgICAgICAgICAgICAgICAgICAgICAgIC AgICAgICAgICAgICAgICAgICAgICAgICAgICAgICAg ICAgICANCiAgICAgICAgICAgICAgICAgICAgICAgICAgICAgICAgICAgICAgICAgICAgICAgICAgICAg ICAgICAgICAgICAgICAgICAgICAgICAgICAgICAgICAgICAgICAgICAgICAgICANCiAgICAgICAgICAg ICAgICAgICAgICAgICAgICAgICAgICAgICAgICAgIC AgICAgICAgICAgICAgICAgICAgICAgICAgICAgICAgICAgICAgICAgICAgICAgICAgICAgICAgICANCi AgICAgICAgICAgICAgICAgICAgICAgICAgICAgICAgICAgICAgICAgICAgICAgICAgICAgICAgICAgIC AgICAgICAgICAgICAgICAgICAgICAgICAgICAgICAg ICAgICAgICANCiAgICAgICAgICAgICAgICAgICAgICAgICAgICAgICAgICAgICAgICAgICAgICAgICAg ICAgICAgICAgICAgICAgICAgICAgICAgICAgICAgICAgICAgICAgICAgICAgICAgICANCjw/sAXfJ1od ePCxlkY6L1jaRa0HLd9YEB5ed1EwXDViTIcnpbSrKj uZImIlOXYiBciGCyv1SWstRY2TtRAwS3PqQ3YlPYyfPL1IDAQiPLWpjXBvLHKrCBAuQhZ0RUXlDUiuCB 6MyFPdYUifDUUiMOEoBL4OMVNsS172txPrEQ0GSn1GGsTyDD3ozk8WXcAdAYNyZtcHOja7YGfmWM8RrI EcyCLkHPJcOAJCCbNdF6sto3AaOuXsZTEYMWndSU8J y6PrwHVmCZs+Rt6JYQ7wy8ImNNgqVNEsOV5emt3RAGiBPeReB4SdiPsqSRpwRSJeuPWGVDPnWJ8vTRew ibCyUM9rON2HQyQhYNQaBj0hRh0aKFDkDVYhPcXwNIPIUL2ULBYiEOTfvYVqRXPnYJHLJY7JICnxLNW8 XRHnjwSntKYdLTxeSL0BKCYzakBdReDpASPLEFa+Pg 1OUT2fe5VyQCcsQvJnCH6xmh0FHCwGUdKmK0H3oEYtS4J2EEddZp2CLPSbDZZeSHgnGVOKMPmuBC5YIC 5tffV7MC6DmCJxDGNpJGBtzUVnZKp9Z75lbWQdGBmgOH3PVOG+Gerardo+Kf5TNVKoAAEaWCGuYuGwSNZCDc AsS2WqF0HKg6OiL6UgPT39dFcvqpBiMGubLI5UBC9g NSLeGSTHFS5UwCWorW7fvgZkPMHzDKOVJzWgZ94fjUPhIYJoVZU0OJCqOf3THKScE9TbjvDfmSjtlzTu VXAmQXHDHZ6YKKxhkzObzJUyqGgjEU40rBlzFW1DOw2YQkXeWV8sfn3KrHVwYh8NWIJsNn9QZOWfGFWc OBQnWAC8QXZqZaEgVTwnHSJjJUFrSXL7DXLiEUHsNC 1XPaKfKVZlMWjoWMKcXVUaJXRkdu2JILPiFXLiVJe1EFZsTVRsYMRnMIdnCTJqWKMvBRQ8YRUeFZSaLR 0VAyEjNSZdSEA2YANnVBYbPAJoqq2ZIPWjQJHvOmP0MFKvJVRzPQWnMLjjBRNkBQGgPnU4KMJtMFIfFC 8AKcJuDXUuEYM9OYMcKSZdCRLmpj6HUXDxEPIjHIGm ENJkCSPySXSrMZmrOPGdWZM0IUj0PKYgUWYhTD5XOzFmAZUzKITvCAJtCECwKCWmsr1MDTPjQXDeMTV1 RsFzPCCvFXQfKCkvHNIcVNS7NvV5LPVkXNVgRN6QWqPpXJXySQG8NeApPPSxGXEehs8BNIOqLAVdErjv ZgPsNIScRKBvULanZOKqFCU2VfE3LTSyLCInPL8LCo KvIMYeLFl6QkJfPZXgVYOtvl5GVEUcPOXmFHV6RHSgYOJhRXOpAMaeEPLnQHE6WSHjKRTrWSDySD8SXh OoNIIeOZg8VMmvKWNvOCAzgj5WEGDzZUKpKPPuLETyWVYiIXGbUXhbYZTaBVZtMGPhUARhEXVlLE4NFr EkMLqdSBNLTaf3SGghX8s7CAHhZy9QM7Foq2YsOoMq HOCYJJyeKL9djkJzJFIrUl6SB1oEYsz1LhO7NCFkHPI4AnC6BVM8RIK1WDC8NFUhGzM7A3AnXA5eOCFx RtV2KnUkOAz4NZN0VVRnPOzzOFccZKUzFoNrAWGvVqMqHC6JKf2DCbZ9URC8mQZzHr4LVSD8LLGTDzQz JF2DQFy= ID Date Data Source [id number] 01/05/2020 10:05:30 AM EDT [facility] Name Value Range Interpretation Code Description Data Fide rce(s) Supporting Document(s) Tacrolimus [Mass/volume] in Blood 2.7 ng/mL [facility] Renal Transplant Target ValuesImmediate post-transplant: 10 - 15 ng/mL First 6 months: 6 - 15 ng/mL Greater than 6 months: 6 - 15 ng/mL ID Date Data Source [id number] [facility] Interpretation Code Description Data Fide rce(s) Supporting Document(s) Leukocytes [#/volume] in Blood by Automated count 5.5 10*3/uL 4-10 [facility] Erythrocytes [#/volume] in Blood by Automated count 3.50 10*6/uL 4.6- 6.1 L [facility] Hemoglobin [Mass/volume] in Blood 10.0 g/dL 13.5-18 L [facility] Hematocrit [Volume Fraction] of Blood by Automated count 30.6 % 4 1-53 L [facility] Erythrocyte mean corpuscular volume [Entitic volume] by Auto mated count 87.3 fL 80-96 [facility] Erythrocyte mean corpuscular hemoglobin [Entitic mass] by Automated count 28.6 pg 27-33 [facility] Erythrocyte mean corpuscular hemoglobin concentration [Mass/volume] by Automated count 32.8 g/dL 32.0-36.0 [facility] width [Ratio] by Automated count 18.1 % 11.5-14.5 H [facility] Platelets [#/volume] in Blood by Automated count 157 10*3/uL 150-400 [facility] Differential cell count method - Blood [facility] Neutrophils/100 leukocytes in Blood by Automated count 85 % [facility] Lymphocytes/100 leukocytes in Blood by Automated count 10 % [facility] Monocytes/100 leukocytes in Blood by Automated count 5 % [facility] Eosinophils/100 leukocytes in Blood by Automated count 0 % [facility] Basophils/100 leukocytes in Blood by Automated count 0 % [facility] Neutrophils [#/volume] in Blood by Automated count 4.66 10*3/uL 1.8-7 .0 [facility] Lymphocytes [#/volume] in Blood by Automated count 0.55 10*3/uL 1.2-4 .0 L [facility] Monocytes [#/volume] in Blood by Automated count 0.29 10*3/uL 0-0.8 [facility] Eosinophils [#/volume] in Blood by Automated count 0.02 10*3/uL 0-0.5 [facility] Basophils [#/volume] in Blood by Automated count 0.01 10*3/uL 0-0.2 [facility] Nucleated erythrocytes/100 leukocytes [Ratio] in Blood by Automated count 0 /100{WBCs} 0-0 [facility] ID Date Data Source [id number] 01/04/2020 06:16:06 PM EDT [facility] Name Value Range Interpretation Code Description Data Fide rce(s) Supporting Document(s) Albumin [Mass/volume] in Serum or Plasma by Bromocresol green (BCG) dye binding method 3.8 g/dL 3.5-5.2 [facility] Bilirubin.total [Mass/volume] in Serum or Plasma 0.6 mg/dL <1.2 [facility] Calcium [Mass/volume] in Serum or Plasma 9.1 mg/dL 8.8-10.2 [facility] Chloride [Moles/volume] in Serum or Plasma 96 mmol/L 98-107 L [facility] Creatinine [Mass/volume] in Serum or Plasma 4.23 mg/dL 0.70-1.20 H [facility] Glucose [Mass/volume] in Serum or Plasma 138 mg/dL 70-140 [facility] Alkaline phosphatase [Enzymatic activity/volume] in Serum or Plasma 96 U/L 40-129 [facility] Potassium [Moles/volume] in Serum or Plasma 4.0 mmol/L 3.4-5.1 [facility] Protein [Mass/volume] in Serum or Plasma 6.3 g/dL 6.4-8.3 L [facility] Sodium [Moles/volume] in Serum or Plasma 138 mmol/L 136-145 [facility] Aspartate aminotransferase [Enzymatic activity/volume] in Serum or Plasma 23 U/L <40 [facility] Urea nitrogen [Mass/volume] in Serum or Plasma 86 mg/dL 8-23 H [facility] Osmolality of Serum or Plasma by calculation 315 mosm/kg 275-300 H [facility] Creatinine/Urea nitrogen [Mass Ratio] in Serum or Plasma 20 [facility] Bicarbonate [Moles/volume] in Serum 29 mmol/L 22-29 [facility] Alanine aminotransferase [Enzymatic activity/volume] in Seru m or Plasma 23 U/L <41 [facility] Anion gap 3 in Serum or Plasma 14 mmol/L 8-15 [facility] Albumin/Globulin [Mass Ratio] in Serum or Plasma 1.5 [facility] Glomerular filtration rate/1.73 sq M pre dicted among non-blacks [Volume Rate/Area] in Serum or Plasma by Creatinine-based formula (MDRD) 13 mL/min/1.73m2 >60 L [facility] Glomerular filtration rate/1.73 sq M pre dicted among blacks [Volume Rate/Area] in Serum or Plasma by Creatinine-based formula (MDRD) 15 mL/min/1.73m2 >60 L [facility] ID Date Data Source [id number] 01/04/2020 06:16:06 PM [facility] Name Value Range Interpretation Code Description Data Fide rce(s) Supporting Document(s) Magnesium [Mass/volume] in Serum or Plasma 2.3 mg/dL 1.6-2.4 [facility] ID Date Data Source [id number] 01/04/2020 06:16:06 PM [facility] Value Range Interpretation Code Description Data Fide rce(s) Supporting Document(s) Phosphate [Mass/volume] in Serum or Plasma 4.5 mg/dL 2.5-4.5 [facility] ID Date Data Source [id number] 01/04/2020 05:24:11 PM [facility] Value Range Interpretation Code Description Data Fide rce(s) Supporting Document(s) [facility] SRGCDv8hSfBIMyXr22/UHBpeXUVsb6RyTWasAXj2OUdcOHXqP2RdUUV8sX3rXVH0RAtYYmCnCeRiNvP6 [facility] [file] nJX7x1t0L+product safety manager+UN/GUMeE6pFUE5sn+dWvYrXszfz4sNoc6BN++n1YKYxAakCFLSO6ol5oG8WAXj2bFC [file] fjsxyiDeXOhOvFrjbYoKO2/XE9WcL/WKA7XQ8/NyWFA6gd+qJCttUtB5Ox+D5UXUx76aCfzTp81w4+Contract Specialist [file] AgICAgICAgICAgICAgICAgICAgICAgICAgICAgICAgICAgICAgICAgICAgICAgICAgICAgICAgICAgIC WyOHXlTBHyFRWiYX2XXQJaRGSjUILhTXQsIFStNXKy ICAgICAgICAgICAgICAgICAgICAgICAgICAgICAgICAgICAgICAgICAgICAgICAgICAgICAgICAgICAg DMJmIVDsRXUeSZYxQELmNFIbHLLyDD4XFOZbQHIcRJFzGFUvFFVuXPHgBLImGBYrGZLbCNWfJMPjRVTq ICAgICAgICAgICAgICAgICAgICAgICAgICAgICAgIC GnTJYlGUXyVWErCJJuZTHyGYIlFFAhAPUcTAKgGXNkCZ7ICRAjAXTdMRBxOTCaPYCuLIUlLEQuOAKxGW AgICAgICAgICAgICAgICAgICAgICAgICAgICAgICAgICAgICAgICAgICAgICAgICAgICAgICAgICAgIC AuCXXzVRYuSFVeXQUdAJ4CNAOqSCMoPGTdKLGlUUXv ICAgICAgICAgICAgICAgICAgICAgICAgICAgICAgICAgICAgICAgICAgICAgICAgICAgICAgICAgICAg ZGNtFFKaOMHkIHOxEUTjVLFrMFYfDCLwCW8CLPSrTAZgLHNsHPMoBDSfQMApALNlZDViSHTlJLTfRULb ICAgICAgICAgICAgICAgICAgICAgICAgICAgICAgIC ZqRUArDHBuISDdOLWzWTUwKANzPOGhAPWnQGFmBITaAIRnYC8NPXWlGHHjGPWiYTDxHZXcLFRbYMXzEN AgICAgICAgICAgICAgICAgICAgICAgICAgICAgICAgICAgICAgICAgICAgICAgICAgICAgICAgICAgIC KpRXSyWXFsVNOzPWAyUHIkQB3TOAHuNIMsYPYwARLh ICAgICAgICAgICAgICAgICAgICAgICAgICAgICAgICAgICAgICAgICAgICAgICAgICAgICAgICAgICAg COFlSZNnFZPrZRPoFTViRFHlCDZtVCRkZYXpLJ3ZLRMfPCJnKRNjPBXoEXEuKSNhPJRqGQZeFRQgFCDf ICAgICAgICAgICAgICAgICAgICAgICAgICAgICAgIC GcWPSeJCIxOYJmKOSeQPCcMTArTPGgSQObVGJxLKMoKXMuEANgJX8LARDeATLfQFNxQEWoALYbDPOsYY AgICAgICAgICAgICAgICAgICAgICAgICAgICAgICAgICAgICAgICAgICAgICAgICAgICAgICAgICAgIC CsQDYkLZEtUMSiQILhSVHaUJXkBW3IHR33zXMdl9H8 KGBvXN6inws/Gn2JLVzqtvZkeWQiXP6VHpJyEF5yma8HVqBjJF2onm7LMRrCYzAoY3H8vOQmYCRxJXPA QaEuL22vKPvpQn44MByrVPBpVxKnPXc8Iv1QApBuA4tlLLXqIpA8NLYkWqN0OVKzBwW4PFFkHzTfLODx HUWqJCOmBXNIVGH7DJEhAbOjUkZlTTWvUQbbOHZPBU VnOUMuErTnWIjkDA4Zx7AwpRT1GZy+Lg6KCQ9ru3UtGYy8PAHkOM4ajo5DXEcEYeSaB2JjmsB0PUGoPQ YfOk5ANQTqEJTgnBH3XMBwXZNAFsLwL6FnqS81EVJODh6+XKpavfCyYlrGPqYxTYWaj2SpFJf4WU0CAS PsEAp8eMYsY84ak6QnaOEsLabiV0IrNLDskuxlgVfa JBYEVYDakNRaKuM9IgFbHjKtZSW4GIQcFO4kYRoaOD9WFFP7ZJscFJPcZUJkQ5sXLkBxEXTsQCRgzVje MO2RCmLcU3GpdtTbpAL7SBHcSZMMFy6+JMiccoYjIraQHdXhKDHhc3MwPFu6DO2PGJDzVZnbVD5YOWOf uJ1sIKpbLC2IDaF6OAWnUFSGBcFiC36pgORxLQi1Q7 VtYmVkZGVkRmlsZXMgPDwvTmFtZXMgWyBdDQogID4+ID4+QOggNF3TQCkjorFqPQGnSh8IJURhFFOxGM 4bUVVlELRlS5S9kReaNLHJKnAoW3trifpxEK3pKTSsO620zFubfhMaWCRkCXWoCx1CYGWqOYQ0LSWliI AyREjdCWPUZWcmTO3LeOIsHZE7uX3qTFlkOQUrDBPh G7cFHpQozYneLO50kKlooyFjdPMyWNk+Ao2FPM1vr0OzHNe6gtTwCHrkPYEnHDxlXGOaJFBbGOIqAXX7 RBN4UGVREsVrDIKnRULpDIzzOKNbJBOkws6XWYGcEFQcEWS9HSQcLNTsWWVrALfoMHFqQmZeHpHvUTFm ZXCmGT4VRuAdJQZgMWSaQTcsUAOrWJEisn4GJZVmFU XfGechKXWiXTLhTMUzVAgfGUBgBTBgPRB0BJJzPIZoVU6JNqIkYZQfOWPoHaqmIPKaBBLhmz3FKVVcBN PfDyF6BhPnCQIdXALoBDwuAROwZWA9AYT5ZLUeNMLuLA6FNrTxDUJiHFa0SGWvOYGvBICeat5ZFRUlHU PvRmNvRpIiGCWzKXCuVGwgVTMbOZMyLQS3VYIoVVXb WU1ULiOnNYYiHYZ5DpveBKAeWOKgqm8LVDMkTUWeKKu9HHQjOKXmBKDpHGrfJZCjEXE2WjE2MLCvUJUr OU2SHgKhCKSuOWu9OWRwMYIaTKLayk5VWZXyPCHmRZQ7RPTwSFJsIPHiQGeuKRDaQNN3JTChMVVwRDWb FM3HXvEbGKDpLvG6IeNfYFItIOIadd0PGJZoWHWbDv JcVeOjQJFiRSZaGFcrZCCcNAGdWjq1WMDdJJPeSZ3MCwYoTNNvPiW3PKVoQXPtKTLyat9TDWRgMBImKJ u8TrKiBYPbCBEvSCocLIJiWCL7BFP1NUJcVJZmFR1WYkXwHWEgPqMnDnFdEHJyUFYvxm0DMLWdHFZgOl R7WXYvLMMjFRPaQAotWIThVSH4WeskZJOaADFhXK3G FwCaFPOwTpM9KZMnXRBuZZBxsg7MQNEkERNlVbk6UhTrVSJlYMWnIZsgYPEsUCM8Rvu6AIMuLYDlZJ8J OnUpFUDjAte4LJPbVQSnMHRrtf1YBJNrQWVmKHbaVhMcWUEpGIIwUKyaSJFfGNU5QGt1SPRmBIIsLX9E EdWnXMBzYlm4RtLhJTFsYZLewa5JCEDxLDX0DTDrKW KvSEDzYLWnPEtmLIUlCHInVOu9NADoSLFeWZ2ZMzPuCHNzSOA0DsWpABWrYAIhuf5VVEOsCFN2XqYlVV BtFKPnHVCqPShnINKwTTHpLgJ9LXJmXZJgDJ7PJyBjWEWnWmLlEigkZAVsNLEpwl5HMHDfCZY2TMP6IE QiASAaJTFuSNtkWZDyZLV6GIO8NUZlWRXvWM1XXfIh YMGrPlF9JSFzHSTrQBAydk7OFNXvLUG2QFg2SYGaPNLcHDSjPSxhFZFgAYzcVfpcSWAnBGRmIQ0VPwBw CRAlCiklZDHgJKTrQCKwvn8YYJRdGMN5UBE6JAYlCDTpKTLvLVtdMRDjQgK3TcHrWVWhMXQhOK4EHyIk UHTlInu6UHGfWDMcUMKxya6OSURfGAQ5PZM3AaMrSO XdVJRkDAzvSSYlJqMhUCC9BHTfWLImFQ8KEhPrTLBeCRO6YKKjHKQdUUQshl0DoPZkeEgebq3SQWaMCd 9TxCbaBHJpNUrgIc1wrYF0IhHyCRDREk1HhkEyOUNcSIBJLGajVKKfJKGxU2CxJPU7TgG2PHLjV1H4GC EgGTCvSjK4NDG8XFY5LkD4GpU0GtUoNaFjZnoyKpKf YjRhNjExZWRmYTkwMDgwMjk+VN9nYLi+Sy9Dm2OjglX3suZrTQllHFX1TeoYHsRwVW0LHIx= ID Date Data Source [id number] 01/04/2020 05:21:01 PM EDT [facility] Name Value Range Interpretation Code Description Data Fide rce(s) Supporting Document(s) Consultation [facility] LAKLYn3aPxAMZvYp61/EQScqJGPys4RgOJedHDq3MZfuXLJkF7ZsNFE8nK2zQZP3PBqCZxJcBoXoSaD2 lbm [file] ICAgICAgICAgICAgICAgICAgICAgICAgICAgICAgICAgICAgICAgICAgICAgICAgICAgICAgICAgICAg VAJqIUTiOIQzEFKkDPHhFD5SXXDkSNQsVXQjUIPgHWCoJGXeGNWcYIBuNANiCQYnNSUhRPCoWHTnKBJr ICAgICAgICAgICAgICAgICAgICAgICAgICAgICAgIC NaKXRfLKJmYWAmXKZqPRNsQGZtEKZjMTXrBK2IIUKrQLCqVMHmBBKcZOIrSAHwNWKiVLNzRMZtAEXcRH AgICAgICAgICAgICAgICAgICAgICAgICAgICAgICAgICAgICAgICAgICAgICAgICAgICAgICAgICAgIC WqVFDaEMQnNC6EQWOoDMBrBCArPAFxXAUzDROeSXKs ICAgICAgICAgICAgICAgICAgICAgICAgICAgICAgICAgICAgICAgICAgICAgICAgICAgICAgICAgICAg VSKaALVyZZPcQGHeNWJjALLvSS1AAUFrHRFoSAOuFUWuGASuHLCcTICoZNSaLPBbIQRsVAAjVEJjYLSq ICAgICAgICAgICAgICAgICAgICAgICAgICAgICAgIC WnOWHhDUAtIZRyHUKuTXCfFGNpKHHuYKYoSRZmEO0ULMLyAZPvOAMuWJNtWGClFVQrVGZwAULyTDEvZE AgICAgICAgICAgICAgICAgICAgICAgICAgICAgICAgICAgICAgICAgICAgICAgICAgICAgICAgICAgIC MrNGVuFVUpIGKrCI8DIIWxBMCmQGYyTSVgXSLoTLXr ICAgICAgICAgICAgICAgICAgICAgICAgICAgICAgICAgICAgICAgICAgICAgICAgICAgICAgICAgICAg MSDbBKEtEDYtIXVfNSVqMAIfXYQjKU7QAPAfWEOqNBGdCKEjRASxQLLeMGEyAINiISMzMZPxZIOmRZRs ICAgICAgICAgICAgICAgICAgICAgICAgICAgICAgIC YqDOGeXQLpBPPrGFToTRRpDJGpIMBgUKTuMNMoUDArXL1XPOFmSSKbXNFkFAUlBIDsLUCrHTTdUDAdSR AgICAgICAgICAgICAgICAgICAgICAgICAgICAgICAgICAgICAgICAgICAgICAgICAgICAgICAgICAgIC MeGVGaMKKsXHPpTTVhRK8MJFQkHQDcKLDqMBSgGVXj ICAgICAgICAgICAgICAgICAgICAgICAgICAgICAgICAgICAgICAgICAgICAgICAgICAgICAgICAgICAg DUAhTEWjMYTfOMYbDVDcLGEeJZKbDGJoOY5UGX30nCXwr3R0SHFfIO2hghn/Az0FDRwpcsUtlLXnXT2P VkEvLX1rva3RTlSkUM6jso4HYYlHTrPiU5N9uINsOU JcYDPJGkFmY39hJUkfXn78GTayBKLbQnCiZDv4Xs8HQjFzA5bvQPFrOrW0VRSjWeL8CBZfUeG0YNVfZv AvHJQmYYSsTYFdETWXAZ6XJhSiQ9MlcQ57ZNOOTw6+UQmhsfArKepMCsVqOBIot0TzHPb2FF6SLTNhXm win4KdOhKkGBPLOPpyKL8MYTJ2QGEuVPVeWn5SRGDw U755xoJxQW1XWd3CRqJjTL4oal5LRxZlBIAaRepZUpe7JLwhHZ3LqZZyBWvOz12ukNa5kgFfsDUGmfez gkHLVUizuLmsjDqwWMAyZKWyHc1mTm6cKZHgMNGfBmD5FNWUIA4QEMGnMUBltFUxVRAlDDKLGR9TYDef AWY7CAGwaaMfpGAkFEfgGI5BSMYzgqJeVtVnNTNYRF o+Kw4EBS9jl4TtXLvsFnWaAD5tfv0EZMhBIrSwW6X3bOIbD2I5SIjxJg0SNARlMECrPuxlUAJLRAviIA 6QDP3salW6RS9OoOIfWLLkUTXofMWqVBr7F27rsJMaEGqhSL5NOUE+Gerardo+Jh2VRGWvYJIpHTQgVfAeBU BIXlRoY8WhJ5ROd1XeL9NrFQ77pZlczhHxEAzoKB8C DX8xORPaDYIBGN4GyITgiQ8zteLiGXOtTINGOkDyF56ciQYhDSGaAJC7DKSwCk7UZZTlO8DpxgNdsTlc wgLnXJRtFLOJRH5PQJykfoXraBTgoLmmAQ77vDmxKG2QRt8NSyGjXT3kjc9ZqYGtAr1BZCKwZi9VIDAb UDQmIEWaHST5VRMaEkAuZZugHKWlTVMmQTZ5SESsXE QgVP2HZkQrYGVwMLK0UVGeQWVbOEFbxi8ZZZEpNXV8CeX4LHGeVXPjLVNcFNyiPXFvESIuXYL8SBLtOC WrVA1RRdHjYTDzGXL2LKXrHEPhNGFlkk6DPABnIYMnTsb0XABlIPQpRZMkRGstOQNjWYS0RHo7SQXeNM XxDX6YPuMfZWJgIODkZGArJGImQIUlnq8VGFEzTWSm HUQ1NIKoKPOaHGToQOqfSASfZZF1JEWiVUQlJTNcBY8IBgQmJFAnMZT7DrLcRHXkGEQywk1UHJOnLSDy Hey9KTSdTFSuIMYzRHcuSKFeCII3Lrg8EYMqSZQrEG4DAiGcOVRbYQN5COAhZYImVDPmrx6NRFOaRGYv Xoi4NMLyDIGhXFYwLIvuSZDrFTN6EJV3RHIaESEzTE 2QUoDjBQWdPVxqWfAkIAIgWONnjw2JZDNtUQXeASF0UNWjAYXtYYXkAQwsXGUnKHH4DlrhPRDtQLUvBJ 2JQfZvFXUyFTr7GlXnLFNlMIIuuf8JWNDnFCH2Kjx0ByLpJIFqFBGaJFcyYIVmEPT6LqnfPMNqMRFgUI 2CZvClWVQhZWv5YJWnZSVpBBFjjh0VAQUfYWN6BSBe FYQzYCNnSPOiKVxoLEFaFGV9MHseXZDxJTZnLK8NLfHxZZVoBWQ2KoLlPONpBQVscd5AFPVlMZS3WPHt EyDqYPYzMIWxSIfuUYZzDPBqPrisWUIvCISoII4JXkZlWXTgXEOqSAqsSNGfAOJqkc8ABALjNUL7PcN8 GvNlUYAeYQNuJGszECVqGSMoHcGrVPEtTDBqUM4WJq DoBYExNPW2GMViFYCaCJDezl7RyQItgSmhaz0MSMlZNj7AlPrxMKAxVMqgPq1hjSDcAkDpIQZHBj0Hrj MgVAKwDQETLMmiWOZjPEIrIXXpYwGtUnPqLIX1HzqjVgAkWxYkWSKoAQr3SKEiHdZ4SmQ6WSE9FSInBg U7KiJ1LiI8NhY1XQUpWBN7NaV8G0G+ZE3xSTk+Lx7Uq1ZwweU3ctGfVQg8JrGkGD6ZWSSJI7PKNh== ID Date Data Source [id number] 12/22/2019 11:46:00 AM EDT [facility] Name: MOISÉS BISHOP V : 1955 Ag e/Sex: 64M Ordering Provider: Jarrett Waldrop MD Med Rec #: [id number] Reg Status: [facility] REF Room #: Date of Service: 12/21/19 Report Number: [id number] cc:Jarrett Waldrop MD Send Report To: [id number] PET/PET/CT SKULL TO MID THIGH Reason for exam: 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 FINDINGS: In the right nasal cavity, there is a soft tissue density identified. That does result in some osseous destruction of the nasal passages on that right side and also breeches the medial orbital wall. The lesion measures 2.6 cm in transverse dimension and 4.6 cm in AP dimension and there is some intraorbital extension medially by about 9 mm and that is still medial to the medial rectus muscle. The lesion demonstrates an SUV of 4.62. There is some opacification of the left maxillary antrum consistent with left sided maxillary sinusitis. There is a lymph node in the left palatine tonsillar region measuring 5 mm with an SUV of 2.0. That is likely a benign tonsillarly lymph node. In the left proximal humerus, there is an area of abnormal metabolic activity within the humeral shaft. That has an SUV of 3.4 and that lesion measures approximately 1.3 cm. I cannot define a CT correlate. MR of the left humeral head is recommended for further evaluation of that. Otherwise a bone scan could also be performed. The heart and mediastinum are otherwise within normal limits. The lung anderson demonstrate some bibasilar atelectasis. There is some inhomogeneity identified within the liver with area in the centralportion of the liver having an SUV of 4.2. Again however, I cannot however see a definite lesion on the CT. I would recommend either a contrast enhanced CT orcontrast MR for evaluation of the liver. That area of uptake is concern for a possible hepatic metastases, it measures 2.1 cm on the PET scan, but as stated adefinite CT correlate on the nonenhanced CT is not clearly seen. There is an atrophic right kidney. The left kidney is also atrophic. There is a lesion off the posterior margin of the left kidney that appears hypodense and has Hounsfield units that do go as low as 3 and that is consistentwith a cyst measuring about 5 cm. Atherosclerotic calcifications in the aorta. There is a right pelvic renal transplant noted. There are no other signs of any osseous or pelvic abnormalities. IMPRESSION: 1. 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 2. Some bilateral maxillary sinusitis noted. 3. Area of uptake identified in the left proximal humerus, of indeterminate etiology. That is concerning for possible metastases and either MR or bone scanis recommended. 4. Some uptake is also suggested in the upper thoracic spine and that has an SUV of 3.1 and is also concerning for a possible metastases, again MR or bone scan could be performed. 5. MRI scan with contrast or CT of the liver recommended to evaluate for suspected hepatic metastases. Fluoroscopy time in seconds: Number of Exposures: Time Portable Image Performed: Contrast Agent in ml: Method of Administration: Intraveneous REPORT SIGNATURE ON FILE Reported By: Jarvis Hammer MD <Electronically signed by Chucky Hmamer MD> 12/24/19 0839 Dictation Date/Time: 12/21/19 1547 Transcribed Date/Time: 12/22/19 1146 First Aid Teacher: SMITH Name Value Range Interpretation Code Description Data Fide rce(s) Supporting Document(s) ID Date Data Source [id number] 12/14/2019 02:36:00 PM EST [facility] ([facility]) Name Value Range Interpretation Code Description Data Fide rce(s) Supporting Document(s) Red Blood Count 3.46 10 4.30-6.10 Below low normal [facility] ([facility]) White Blood Count 5.7 10 4.0-10.0 Normal (applies to non-numeri c results) [facility] ([facility]) Hematocrit 31.0 % 42.0-52.0 Below low normal [facility] ( [facility]) Hemoglobin 9.5 g/dL 13.5-17.5 Below low normal [facility] ( [facility]) Mean Corpuscular Volume 89.6 fl 80.0-96.0 Normal ( applies to non-numeric results) [facility] ([facility]) Mean Corpuscular HGB Conc 30.6 g/dL 32.0-36.5 Below low normal [facility] ([facility]) Red Cell Distribution Width 18.0 % 11.5-14.5 Above high normal [facility] ([facility]) Mean Corpuscular Hemoglobin 27.5 pg 27.0-33.0 Norm al (applies to non-numeric results) [facility] ([facility]) Platelet Count, Automated 195 10 150-450 Normal (applies to non-numeric results) [facility] ([facility]) Nucleated Red Blood Cell % 0.0 % 0-0 Normal (applies to n on-numeric results) [facility] ([facility]) ID Date Data Source [id number] 12/14/2019 07:51:00 AM EST [facility] ([facility], ) Name Value Range Interpretation Code Description Data Fide rce(s) Supporting Document(s) Potassium [Moles/volume] in Serum or Plasma 3.9 meq/L 3.5- 5.1 Normal (applies to non-numeric results) [facility] ID Date Data Source [id number] 10/12/2019 09:26:00 AM EST [facility] Patient: MOISÉS BISHOP V Observation Re port - Physicians/[facility] [id number] [place] [address] [phone], MRegistration Date/Time: 10/11/2019 13:01 Weight:95.2 kg. Height/Length:73 inches. BMI:27.7 PAST HISTORYProblems:Hyperkalemia.Kidney Transplant.Hypertension.Nephrolithiasis.Sinus bradycardia.Renal Failure.Prostate Cancer. Additional Surgeries:Kidney Transplant.Prostate removal. Medications:Pantoprazole Sodium Oral (Tablet Delayed Release 40 mg) 1 tablet, daily.Myfortic Oral (Tablet Delayed Release 360 mg), 2x a day, last dose 02/17/17 am.Potassium Citrate ER Oral (Tablet Extended Release 15 MEQ (1620 MG)), 2x a day, last dose 02/17/17 am.Prograf Oral (Capsule 1 mg), 2x a day, last dose 02/17/17 am.PredniSONE Oral 5 mg, daily, last dose 02/17/17 am.Folic Acid Oral (Tablet 1 mg) 1 tablet, daily.Allopurinol Oral (Tablet 300 mg) 1 tablet, daily.Simvastatin Oral (Tablet 80 mg) 1 tablet, daily.Magnesium Oral (Capsule 400 mg) 3 capsules, 2x a day, last dose 02/17/17 am.Ferrous Gluconate Oral (Tablet 324 (37.5 Fe) mg) 1 tablet, 2x a day.Minoxidil Oral (Tablet 2.5 mg) 1 tablet, 2x a day.Nicotine Transdermal (Patch 24 Hour 21 mg/24hr), daily, last dose yesterday.Triamterene-HCTZ Oral (Tablet 37.5-25 mg) 1 tablet, daily.levoFLOXacin Oral (Tablet 250 mg) 1 tablet, daily, started 09/25/19, stopped 10/02/19, last dose 10/02/19. Allergies:No Known Drug Allergy. FAMILY HISTORYNegative - denies family medical history. INSTRUCTIONSYour Current Medications: Your current home medications have been reviewed. CONTINUE TAKING THE FOLLOWING MEDICATIONS:Allopurinol Oral : Tablet 300 mg, 1 tablet daily. Ferrous Gluconate Oral : Tablet 324 (37.5 Fe) mg, 1 tablet 2x a day. Folic Acid Oral : Tablet 1 mg, 1 tablet daily. levoFLOXacin Oral : Tablet 250 mg, 1 tablet daily, Started: 09/25/19, Stopped: 10/02/19, Last: 10/02/19. Magnesium Oral : Capsule 400 mg, 3 capsules 2x a day, Last: 02/17/17 am. Minox miguel Oral : Tablet 2.5 mg, 1 tablet 2x a day. Myfortic Oral : Tablet Delayed Release 360 mg, 2x a day, Last: 02/17/17 am. Nicotine Transdermal : Patch 24 Hour 21 mg/24hr, daily, Last: yesterday. Pantoprazole Sodium Oral : Tablet Delayed Release 40 mg, 1 tablet daily. Potassium Citrate ER Oral : Tablet Extended Release 15 MEQ (1620 MG), 2x a day, Last: 02/17/17 am. PredniSONE Oral : 5 mg daily, Last: 02/17/17 am. Prograf Oral : Capsule 1 mg, 2x a day, Last: 02/17/17 am. Simvastatin Oral : Tablet 80 mg, 1 tablet daily. Triamterene-HCTZ Oral : Tablet 37.5-25 mg, 1 tablet daily. (Electronically signed by Raina Miller PLeila 10/12/2019 09:24) Name Value Range Interpretation Code Description Data Fide [facility](s) Supporting Document(s) ID Date Data Source [id number] 10/11/2019 04:48:00 PM EST [facility] DATE OF EXAMINATION: 10/11/2019 16:26 EST SINUS WITHOUT IV HISTORY: Epistaxis. Sinusitis. This CT exam was performed using the following dose reduction techniques:automated exposure control, adjustment of mA and/or kv according to thepatient's size, and use of iterative reconstruction technique. Standard contiguous axial spiral imaging was obtained without contrastadministration and with coronal reconstruction. Mucocele of the right frontal sinus is noted. Mucocele of the right ethmoidalsinuses is also identified with cortical expansion and compression of the middleand inferior meatal passages. Moderate mucoperiosteal thickening of bothsphenoid sinuses with mucosal polyposis versus cyst of the left maxillary sinusare appreciated. There is opacification of the right ostiomeatal unit and tolesser extent left ostiomeatal unit. 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 Opacificationof bilateral ostiomeatal units (right greater than left) is noted. Electronically signed in [id number] by: Dean Worley M.D. 10/11/2019 16:42 EST Name Value Range Interpretation Code Description Data Fide rce(s) Supporting Document(s) Procedure Social History Code Duration Value Status Description Data Source(s ) Tobacco use and exposure 07/03/2020 12:00:00 AM EDT Never used co mpleted Never used [facility] Smoking 07/03/2020 12:00:00 AM EDT Former smoker completed Former smoker [facility] Smoking 04/10/2020 12:00:00 AM EDT Former smoker completed Former smoker [facility] Smoking 03/06/2020 12:00:00 AM EDT Former smoker completed Former smoker [facility] Smoking 02/14/2020 12:00:00 AM EDT Former smoker completed Former smoker [facility] Smoking 02/07/2020 12:00:00 AM EDT Former smoker completed Former smoker [facility] Smoking 01/10/2020 12:00:00 AM EDT Former smoker completed Former smoker [facility] Smoking 01/08/2020 12:00:00 AM EDT Unknown if ever smoked comp leted Unknown if ever smoked [facility] Smoking 01/07/2020 12:00:00 AM EDT Unknown if ever smoked comp leted Unknown if ever smoked [facility] Smoking 01/04/2020 12:00:00 AM EDT Unknown if ever smoked comp leted Unknown if ever smoked [facility] Vital Signs ID Date Data Source UNK Name Value Range Interpretation Code Description Data Source(s) Body mass index (BMI) [Ratio] 25.7 kg/m2 25.7 k g/m2 [facility] ([facility]) Oxygen saturation in Arterial blood by Pulse oximetry 95 % 95 % [facility] ([facility]) Body weight 86.100 kg 86.100 kg [facility] Body weight 189.81 [lb_av] 189.81 [lb_av] [facility] Body height 72 [in_i] 72 [in_i] [facility] 6'0" Respiratory rate 17 /min 17 /min [facility] ( [facility]) Body temperature 97.8 [degF] 97.8 [degF] [facility]) Heart rate 61 /min 61 /min [facility] Diastolic blood pressure 73 mm[Hg] 73 mm[Hg] [facility] ([facility]) Systolic blood pressure 145 mm[Hg] 145 mm[Hg] [facility] ([facility]) Body weight 85.844 kg 85.844 kg [facility] [place] body weight 184 [lb_av] 184 [lb_av] [facility] ([facility]) Body mass index (BMI) [Ratio] 25.0 kg/m2 25.0 k g/m2 [facility] ([facility]) Body weight 189.25 [lb_av] 189.25 [lb_av] [facility] ([facility]) Body height 73 [in_i] 73 [in_i] [facility] ([facility]) 6'1" Heart rate 54 /min 54 /min [facility]) Diastolic blood pressure 78 mm[Hg] 78 mm[Hg] [facility] ([facility]) Systolic blood pressure 136 mm[Hg] 136 mm[Hg] [facility] ([facility]) Body mass index (BMI) [Ratio] 26.9 kg/m2 26.9 k g/m2 [facility] ([facility]) Oxygen saturation in Arterial blood by Pulse oximetry 99 % 99 % [facility] ([facility]) Body weight 90.011 kg 90.011 kg [facility] Body weight 198.44 [lb_av] 198.44 [lb_av] [facility] ([facility]) Body height 72 [in_i] 72 [in_i] [facility] 6'0" Respiratory rate 16 /min 16 /min [facility] ( [facility]) Body temperature 98.0 [degF] 98.0 [degF] [facility] ([facility]) Heart rate 70 /min 70 /min [facility] Diastolic blood pressure 64 mm[Hg] 64 mm[Hg] [facility] ([facility]) Systolic blood pressure 137 mm[Hg] 137 mm[Hg] [facility] ([facility]) Oxygen saturation in Arterial blood by Pulse oximetry 100 % 100 % [facility] ([facility]) Body weight 99.000 kg 99.000 kg [facility] Body weight 218.25 [lb_av] 218.25 [lb_av] [facility] ([facility]) Respiratory rate 15 /min 15 /min [facility] ( [facility]) Body temperature 98.0 [degF] 98.0 [degF] [facility] ([facility]) Heart rate 53 /min 53 /min [facility] ([facility] Diastolic blood pressure 86 mm[Hg] 86 mm[Hg] [facility] ([facility]) Systolic blood pressure 158 mm[Hg] 158 mm[Hg] [facility] ([facility]) Oxygen saturation in Arterial blood by Pulse oximetry 98 % 98 % [facility] ([facility]) Body weight 81.648 kg 81.648 kg [facility] Body weight 180.00 [lb_av] 180.00 [lb_av] [facility] ([facility]) Respiratory rate 14 /min 14 /min [facility] ( [facility]) Body temperature 97.0 [degF] 97.0 [degF] [facility] ([facility]) Heart rate 58 /min 58 /min [facility] ([facility] Diastolic blood pressure 64 mm[Hg] 64 mm[Hg] [facility] ([facility]) Systolic blood pressure 145 mm[Hg] 145 mm[Hg] M [facility] ([facility]) Body weight 87.261 kg 87.261 kg [facility] [place] body weight 184 [lb_av] 184 [lb_av] [facility] ([facility]) Body mass index (BMI) [Ratio] 25.4 kg/m2 25.4 k g/m2 [facility] ([facility]) Body weight 192.38 [lb_av] 192.38 [lb_av] [facility] ([facility]) Body height 73 [in_i] 73 [in_i] [facility] 6'1" Diastolic blood pressure 69 mm[Hg] 69 mm[Hg] [facility] ([facility]) Systolic blood pressure 115 mm[Hg] 115 mm[Hg] [facility] ([facility]) Body weight 91.400 kg 91.400 kg [facility] ([facility]) [place] body weight 184 [lb_av] 184 [lb_av] [facility] ([facility]) Body mass index (BMI) [Ratio] 26.6 kg/m2 26.6 k g/m2 [facility] ([facility]) Body weight 201.50 [lb_av] 201.50 [lb_av] [facility] ([facility]) Body height 73 [in_i] 73 [in_i] [facility] ([facility]) 6'1" Diastolic blood pressure 70 mm[Hg] 70 mm[Hg] [facility] ([facility]) Systolic blood pressure 150 mm[Hg] 150 mm[Hg] [facility] ([facility]) Body height 73 [in_i] 73 [in_i] [facility] 6'1" Body weight 95.256 kg 95.256 kg [facility] ([facility]) Body mass index (BMI) [Ratio] 27.7 kg/m2 27.7 k g/m2 [facility] ([facility]) Body weight 210.00 [lb_av] 210.00 [lb_av] [facility] ([facility]) Body weight 97.070 kg 97.070 kg [facility] ([facility]) Body mass index (BMI) [Ratio] 28.2 kg/m2 28.2 k g/m2 [facility] ([facility]) Body weight 214.00 [lb_av] 214.00 [lb_av] [facility] ([facility]) Body height 73 [in_i] 73 [in_i] [facility] ([facility]) 6'1" Body weight 97.070 kg 97.070 kg [facility] ([facility]) Body mass index (BMI) [Ratio] 28.2 kg/m2 28.2 k g/m2 [facility] ([facility]) Body weight 214.00 [lb_av] 214.00 [lb_av] [facility] Body height 73 [in_i] 73 [in_i] [facility] ([facility]) 6'1" ID Date Data Source [id number] 11/20/2020 09:22:35 AM [facility] Name Value Range Interpretation Code Description Data Source(s) WEIGHT RECORDED 192 lb 192 lb [facility] ID Date Data Source [id number] 11/07/2020 02:11:11 AM [facility] Name Value Range Interpretation Code Description Data Source(s) WEIGHT RECORDED 187 lb 187 lb [facility] ID Date Data Source [id number] 10/08/2020 10:05:35 AM [facility] Name Value Range Interpretation Code Description Data Source(s) WEIGHT RECORDED 194 lb 194 lb [facility] ID Date Data Source [id number] 09/08/2020 09:23:28 AM [facility] Name Value Range Interpretation Code Description Data Source(s) WEIGHT RECORDED 195 lb 195 lb [facility] ID Date Data Source [id number] 08/19/2020 02:37:01 AM [facility] Name Value Range Interpretation Code Description Data Source(s) WEIGHT RECORDED 197 lb 197 lb [facility] ID Date Data Source [id number] 07/22/2020 02:01:31 AM EDT [facility] Name Value Range Interpretation Code Description Data Source(s) WEIGHT RECORDED 201.4 lb 201.4 lb [facility] ID Date Data Source [id number] 06/09/2020 08:58:46 AM EDT [facility] Name Value Range Interpretation Code Description Data Source(s) WEIGHT RECORDED 208 lb 208 lb [facility] ID Date Data Source [id number] 05/26/2020 06:55:11 AM EDT [facility] Name Value Range Interpretation Code Description Data Source(s) WEIGHT RECORDED 209 lb 209 lb [facility] ID Date Data Source [id number] 05/05/2020 01:43:20 PM EDT [facility] Name Value Range Interpretation Code Description Data Source(s) WEIGHT RECORDED 207.6 lb 207.6 lb [facility] ID Date Data Source [id number] 03/30/2020 01:55:58 PM EDT [facility] Value Range Interpretation Code Description Data Source(s) WEIGHT RECORDED 232 lb 232 lb [facility] ID Date Data Source [id number] 03/14/2020 02:05:51 PM EDT [facility] Name Value Range Interpretation Code Description Data Source(s) WEIGHT RECORDED 226.2 lb 226.2 lb [facility] Body height Measured 72 in 72 in [facility] ID Date Data Source [id number] 03/06/2020 11:26:47 PM EDT [facility] Name Value Range Interpretation Code Description Data Source(s) WEIGHT RECORDED 227.5 lb 227.5 lb [facility] ID Date Data Source [id number] 02/27/2020 03:09:42 AM EDT [facility] Name Value Range Interpretation Code Description Data Source(s) WEIGHT RECORDED 217 lb 217 lb [facility] ID Date Data Source [id number] 02/02/2020 07:04:09 AM EDT [facility] Name Value Range Interpretation Code Description Data Source(s) WEIGHT RECORDED 208 lb 208 lb [facility] ID Date Data Source [id number] [facility] Value [facility] Interpretation Code Description Data Source(s) WEIGHT RECORDED 207 lb 207 lb [facility] Body height Measured 72.24 in 72.24 in [facility] Patient Treatment Plan of Care Planned Activity Planned Date Details Description Data Source (s) Prednisone 20 MG Oral Tablet 09/25/2020 12:00:[address] [facility] 72 HR Fentanyl 0.025 MG/HR Transdermal Patch 08/28/2020 12:00:[address] [facility] 72 HR Fentanyl 0.025 MG/HR Transdermal Patch 07/31/2020 12:00:00 AM [facility] Hydroxyzine Hydrochloride 10 MG Oral Tablet 07/31/2020 12:00:00 AM [facility] 72 HR Fentanyl 0.025 MG/HR Transdermal Patch 07/03/2020 12:00:00 AM [facility] 72 HR Fentanyl 0.025 MG/HR Transdermal Patch 06/05/2020 12:00:00 AM [facility] Clobetasol Prop Emollient Base 0.05 % External Cream ( Clobetasol Propionate E) 04/10/2020 12:00:00 AM [facility] 72 HR Fentanyl 0.025 MG/HR Transdermal Patch 04/10/2020 12:00:00 AM [facility] 72 HR Fentanyl 0.025 MG/HR Transdermal Patch 03/19/2020 12:00:00 AM [facility] Oxymetazoline hydrochloride 0.5 MG/ML Nasal [place] 03/12/2020 12: 00:00 AM [facility] 72 HR Fentanyl 0.025 MG/HR Transdermal Patch 03/12/2020 12:00:00 AM [facility] Sodium Chloride 0.111 MEQ/ML Nasal Solution 03/12/2020 12:00:00 AM [facility] Oxymetazoline hydrochloride 0.5 MG/ML Nasal [place] 03/12/2020 12: 00:00 AM [facility] Oxymetazoline hydrochloride 0.5 MG/ML Nasal [place] 03/12/2020 12: 00:00 AM [facility] Bisacodyl 10 MG Rectal Suppository 03/11/2020 08:42:23 AM [facility] Oxymetazoline hydrochloride 0.5 MG/ML Nasal [place] 03/11/2020 06: 02:10 AM [facility] Cyclobenzaprine hydrochloride 10 MG Oral Tablet 03/07/2020 01:48:15 AM [facility] 72 HR Fentanyl 0.025 MG/HR Transdermal Patch 03/07/2020 12:00:00 AM [facility] Calcitriol 0.0005 MG Oral Capsule 03/06/2020 12:00:00 AM [facility] Prednisone 10 MG Oral Tablet 03/06/2020 12:00:00 AM [facility] Metoprolol Tartrate 25 MG Oral Tablet 03/05/2020 12:00:00 AM [facility] gabapentin 100 MG Oral Capsule 03/05/2020 12:00:00 AM [facility] alginic acid 200 MG / Calcium Carbonate 80 MG / magnesium trisilicate 20 MG / Sodium Bicarbonate 70 MG Oral Tablet 03/05/2020 12:00:00 AM [facility] Minoxidil 10 MG Oral Tablet 03/05/2020 12:00:00 AM [facility] Cyclobenzaprine hydrochloride 10 MG Oral Tablet 03/05/2020 12:00:00 AM [facility] Acetaminophen 325 MG Oral Tablet 03/05/2020 12:00:00 AM [facility] Cephalexin 250 MG Oral Capsule 03/05/2020 12:00:00 AM [facility] Oxycodone Hydrochloride 5 MG Oral Tablet 03/05/2020 12:00:00 AM [facility] oxyCODONE (ROXICODONE) immediate release tablet 5 mg 020 09:57:08 PM [facility] Cyclobenzaprine hydrochloride 10 MG Oral Tablet 03/02/2020 11:16:42 AM [facility] 120 ACTUAT Albuterol 0.1 MG/ACTUAT / Ipr atropium [place] 0.02 MG/ACTUAT Metered Dose Inhaler 03/01/2020 11:48:40 AM [facility] albuterol (PROVENTIL HFA) inhaler 2 puff 03/01/2020 05:19:35 AM [facility] Acetaminophen 325 MG / Hydrocodone Bitartrate 5 MG Ora l Tablet 01/21/2020 12:00:00 AM [facility] Ondansetron 8 MG Disintegrating Oral Tablet 01/10/2020 12:00:00 AM [facility] Allopurinol 300 MG Oral Tablet 01/08/2020 12:00:00 AM [facility] Prednisone 10 MG Oral Tablet 01/08/2020 12:00:00 AM [facility] Magnesium Oxide 400 MG Oral Tablet 01/07/2020 12:00:00 AM [facility] pantoprazole 40 MG Delayed Release Oral Tablet 01/07/2020 12:00:00 AM [facility] Simvastatin 20 MG Oral Tablet 01/07/2020 12:00:00 AM [facility] Ondansetron 4 MG Oral Tablet 01/07/2020 12:00:00 AM [facility] Acetaminophen 325 MG / Hydrocodone Bitartrate 5 MG Ora l Tablet 01/07/2020 12:00:00 AM [facility] Citric Acid 66.8 MG/ML / potassium citrate 220 MG/ML Oral Solution [facility] torsemide 100 MG Oral Tablet [facility] Docusate Sodium 50 MG / sennosides, [facility] 8.6 MG Oral Tablet [facility] torsemide 20 MG Oral Tablet [facility] Tacrolimus 1 MG Oral Capsule [facility] Mycophenolic Acid 360 MG Delayed Release Oral Tablet [facility] Calcitriol 0.53843 MG Oral Capsule [facility] Minoxidil 2.5 MG Oral Tablet [facility] Magnesium Oxide 400 MG Oral Tablet [facility] Simvastatin 80 MG Oral Tablet [facility] POTASSIUM CITRATE ER PO [facility] Aspirin 81 MG Oral Tablet [facility] ezetimibe 10 MG / Simvastatin 40 MG Oral Tablet [facility] Allopurinol 300 MG Oral Tablet [facility] pantoprazole 40 MG Delayed Release Oral Tablet [facility] Metoprolol Tartrate 25 MG Oral Tablet [facility] Lisinopril 30 MG Oral Tablet [facility] Prednisone 5 MG Oral Tablet [facility] Mycophenolic Acid 360 MG Delayed Release Oral Tablet [facility] Tacrolimus 1 MG Oral Capsule [facility]
[2020-11-24] MEDS ORDERED: TUMS500C PO (17:37)
[2020-11-24] MEDS ORDERED: ACETAMINOPHEN 325 MG TAB PO ONE (18:00)
--- NOTE | 2020-11-24 18:32 | REP ---
INDICATION: SEPSIS/SHOCK. COMPARISON: PA chest 11/20/2017, bone scan 10/28/2020. TECHNIQUE: AP portable chest call FINDINGS: Rounded density overlying the posterior left 5th rib in the mid axillary line is as seen on the bone scan last month and on 03/04/2020. Cortical margins are disrupted there is slight discontinuity with pathologic fracture evident. Remainder of the visualized bones in the chest were intact the lung anderson show some basilar fibrotic changes without pleural effusion or lateral pleural thickening. No apical scarring or pneumothorax. Heart not grossly enlarged for AP portable technique. No vascular redistribution or pulmonary edema. The aorta is mildly tortuous but normal for age. Airway intact. No widening of the mediastinum. Valeria symmetric and grossly intact. IMPRESSION: 1. Metastatic focus in the posterior left 5th rib corresponding to finding on the bone scan 10/28/2020 and a previous bone scan in February 2020. This corresponds to a known metastatic lesion. I cannot see other definite lesions in the bony chest or lung parenchyma although there is some underlying fibrotic change in the mid lower lung zones that might obscure small lesions. No pleural effusion or acute infiltrate. 2. No gross cardiomegaly, mediastinal or hilar abnormality and the airway was intact. <Electronically signed by Ananth Sharpe > 11/24/20 [id number]
--- OUTSIDE RECORDS SUMMARY | 2020-11-24 19:08 | CCD ---
Author Author [facility] Organization [facility] Address Unknown Phone Unavailable Care Team Providers Care Florist Supplies Salesperson Name Role Phone Jeny Mazariegos MD Unavailable [...] REBEKAH, GLEN MD Unavailable Unavailable Manfred JUAREZ [id number] Unavailable Unavailable Paula Cruz MD Unavailable Unavailable [...] Unavailable Unavailable Sivan OCASIO MD Unavailable Unavailable Grey KATE MD Unavailable [...] Unavailable Unavailable Jarrett Waldrop MD Unavailable Unavailable [place], Jarrett MD Unavailable Unavailable [place], Jarrett MD Unavailable Unavailable [place], Jarrett MD Unavailable Unavailable [place], Jarrett MD Unavailable Unavailable [place], Jarrett MD Unavailable Unavailable [place], Jarrett MD Unavailable Unavailable [place], Jarrett MD Unavailable Unavailable [place], Jarrett MD Unavailable Unavailable [place], Jarrett MD Unavailable Unavailable [place], Jarrett MD Unavailable Unavailable [place], Jarrett MD Unavailable Unavailable [place], Jarrett MD Unavailable Unavailable [place], Jarrett MD Unavailable Unavailable [place], Jarrett MD Unavailable Unavailable [place], Jarrett MD Unavailable Unavailable [place], Jarrett MD Unavailable Unavailable [place], Jarrett MD Unavailable Unavailable [place], Jarrett MD Unavailable Unavailable [place], Jarrett MD Unavailable Unavailable [place], Jarrett MD Unavailable Unavailable [place], Jarrett MD Unavailable Unavailable [place], Jarrett MD Unavailable Unavailable [place], Jarrett MD Unavailable Unavailable [place], Jarrett MD Unavailable Unavailable [place], Jarrett MD Unavailable Unavailable Paoletti, J Breonna [...] is protected by Article 27-F of the [facility] Public Health law. If you continue you may have access to information: Regarding HIV / AIDS; Provided by facilities licensed or operated by the [facility] Office of Mental Health; or Provided by the [facility] Office for People With Developmental Disabilities. If such information is present, then the following [facility] mandated warning applies: This information has been [...] law may result in a fine or long term sentence or both. A general authorization for the release of medical or other information is NOT sufficient authorization for further disc losure. Allergies and Adverse Reactions Type Description Substance Reaction Status Data Source(s ) Drug Class NO KNOWN ALLERGIES NO KNOWN ALLERGIES [facility] Encounters Encounter Providers Location Date Indications Data Source(s ) Outpatient Attender: GLEN NIETO MD 12/25/2020 12:00:00 A M EDT [facility] Outpatient Attender: GLEN Lange: GLEN NIETO MD 11/20/2020 12:00:00 AM EST Malignant melanoma of skin, unspecified [facility] Malignant melanoma of skin, unspecified Outpatient Attender: GLEN Lange: GLEN NIETO MD [id number] 10/23/2020 12:00:00 AM EST - 10/23/2020 11:42:46 AM EST Secondary malignant neoplasm of bone [facility] Secondary malignant neoplasm of bone Outpatient Attender: GLEN NIETO MDReferrer: GLEN NIETO MD -ONCOSW 09/25/2020 12:00:00 AM EST - 09/25/2020 11:07:35 AM EST Other technician terminal and repeater (current) drug therapy [facility] Other penitentiary (current) drug therapy Outpatient Attender: GLEN NIETO MDReferrer: GLEN NIETO MD -ONCOSW 08/28/2020 12:00:00 AM EST - 08/28/2020 02:34:43 PM EST Malignant melanoma of nose [facility] Malignant melanoma of nose Outpatient Attender: GLEN NIETO MDReferrer: GLEN NIETO MD -ONCOSW 07/31/2020 12:00:00 AM EDT - 07/31/2020 02:45:27 PM EDT Malignant neoplasm of prostate [facility] Malignant neoplasm of prostate Outpatient Attender: Diane Oseguera/Benjie/Xavier/ Alvarez 07/10/2020 09:00:00 AM EDT [facility] ([facility]) Outpatient Attender: Regan Erazo MDReferrer: Regan brownlee MD 07/08/2020 09:00:00 AM EDT - 07/08/2020 09:00:00 AM EDT [facility] Outpatient Attender: Noam Corral MD 07/04/2020 02:00:00 P M [facility] Outpatient Attender: GLEN NIETO MDReferrer: GLEN NIETO MD -ONCOSW 07/03/2020 12:00:00 AM EDT - 07/03/2020 04:41:43 PM EDT Secondary malignant neoplasm of bone [facility] Secondary malignant neoplasm of bone Outpatient Attender: Breonna Castillo nder: GET JUAREZ [id number]: GLEN NIETO MD -ONCOSW 06/05/2020 12:00:00 AM EDT - 06/05/2020 04:14:29 PM EDT Secondary malignant neoplasm of bone [facility] Secondary malignant neoplasm of bone Outpatient Attender: GLEN NIETO MDReferrer: GLEN MayerA-ONCOSW 05/08/2020 12:00:00 AM EDT - 05/08/2020 01:43:19 PM EDT Encounter for therapeutic drug level monitoring [facility] Encounter for therapeutic drug level mon itoring Outpatient Attender: Diane Oseguera/Benjie/Xavier/ Alvarez 04/17/2020 09:15:00 AM EDT [facility] ([facility]) Outpatient Attender: GLEN NIETO MDReferrer: GLEN Mayer-ONCOSW 04/10/2020 12:00:00 AM EDT - 04/10/2020 02:41:58 PM EDT Secondary malignant neoplasm of bone [facility] Secondary malignant neoplasm of bone Outpatient Attender: Breonna Hastings 04/10/2020 12:00:00 AM EDT [facility] Out[facility] 04/04/2020 12:00:00 AM [facility] Outpatient 04/03/2020 12:00:00 AM EDT [facility] Outpatient 03/27/2020 12:00:00 AM EDT [facility] Outpatient 03/20/2020 12:00:00 AM EDT [facility] Outpatient Attender: GLEN NIETO MDReferrer: GLEN NIETO MD -ONCOSW 03/13/2020 12:00:00 AM EDT - 03/13/2020 11:47:38 AM EDT Malignant melanoma of nose [facility] Malignant melanoma of nose Outpatient Attender: GLEN NIETO MD 03/13/2020 12:00:00 A M EDT [facility] Outpatient 03/12/2020 09:14:00 PM EDT [facility] Inpatient Attender: Dean Jolly r: LAURA BLANTON MDAttender: AUDREY CARBALLO MDAttender: DAKOTA CHIANG MDAttender: BRDOY WITT MDAdmitter: AUDREY CARBALLO MDReferrer: PROVIDER SYSTEM IN 02/08 12:00:00 AM EDT - 03/12/2020 01:02:00 PM EDT [facility] Patient discharged. Outpatient Attender: GLEN NIETO MDReferrer: GLEN NIETO MD 03/06/2020 12:00:00 AM EDT [facility] Outpatient Referrer: Kendall Cruz MD 03/04/2020 12:00:0 0 AM [facility] Outpatient Referrer: Kendall Cruz MD 03/04/2020 12:00:0 0 AM [facility] Inpatient Attender: Kendall Cruz MD Admitter: Kendall Cruz MDConsultant: JARVIS KATE MD [id number] 03/01/2020 12:00:00 AM EDT - 03/05/2020 05:02:00 PM EDT Kidney transplant status [facility] Kidney transplant status Patient discharged. Outpatient Attender: GLEN NIETO MDReferrer: GLEN NIETO MD [id number] 02/14/2020 12:00:00 AM EDT - 02/14/2020 03:39:05 PM EDT Malignant melanoma of [facility] Malignant melanoma of nose Outpatient Attender: Breonna Hastings 02/07/2020 01:03 :00 PM EDT C43.31 Malignant melanoma of [facility] C43.31 Malignant melanoma of nose Outpatient Attender: Og Lauren MDRefer rer: GLEN NIETO MD A-OSRONC 02/07/2020 12:00:00 AM [facility] Outpatient Attender: MEHDI Salvadorferrer: GLEN NIETO MD 01/14/2020 12:00:00 AM EDT Malignant melanoma of [facility] Malignant melanoma of nose Outpatient Attender: Og Lauren MD [id number] 01/10/2020 12:27:06 PM [facility] Outpatient Attender: GLEN MayerA-ONCOSW 2019 12:00:00 AM EDT - 01/10/2020 12:41:23 PM EDT Malignant melanoma of [facility] Malignant melanoma of nose Outpatient Attender: Og Lauren MDReferrer: GLEN NIETO MD 01/10/2020 12:00:00 AM [facility] Outpatient Referrer: GLEN NIETO MD 01/09/2020 12:00:00 A M [facility] Outpatient Referrer: GLEN NIETO MD 01/08/2020 12:00:00 A M [facility] Outpatient Attender: Og Lauren MD 01/07/2020 12:00:00 AM EDT [facility] Outpatient Attender: Og Lauren MD [facility]07[facility] GLEN Villasenor cici: CHARIS OCASIO MDAdmitter: GLEN Coteerrer: PANCHITO JEFFRIESNARD [id number] 01/04/2020 12:00: 00 AM EDT - 01/07/2020 12:55:00 PM EDT Malignant melanoma of skin, unspecified [facility] Malignant melanoma of skin, unspecified Patient discharged. Outpatient Attender: Og Griffin-JASONCTMónica 01/04/2020 12:00:00 AM EDT - 01/07/2020 11:15:26 AM [facility] Outpatient Attender: Og Griffin-ALVA 01/04/2020 12:00:00 AM EDT [facility] Outpatient Attender: Og Rodriguez geovany: John Mazariegos MD Leonard-ALVA 01/04/2020 12:00:00 AM EDT Malignant melanoma of unspe cified eyelid, including [facility] Malignant melanoma of unspecified eyelid , including [facility] Outpatient Attender: Jarrett Waldrop MD [id number] [id number] 12:50:00 PM EDT - 12/21/2019 12:51:00 PM EDT PI/STAGING NASAL CAVITY [facility] PI/STAGING NASAL CAVITY Patient discharged. Outpatient Attender: Jarrett Oseguera/Benjie/Xavier/Reind l 12/20/2019 08:50:00 AM EDT [facility] ([facility]) Outpatient 12/17/2019 11:40:00 AM EDT [facility] Outpatient Attender: Jarrett Oseguera/Benjie/Xavier/Reind l 10/29/2019 10:50:00 AM EST [facility] ([facility] Outpatient Attender: Jarrett Oseguera/Benjie/Xavier/Reind l 10/15/2019 01:30:00 PM EST [facility] ([facility]) Emergency Attender: RAINA Figueroa: Regan Erazo MD 10/11/2019 01:53:00 PM EST - 10/11/2019 06:12:00 PM [facility] Patient discharged. Outpatient 09/25/2019 09:06:00 PM EST [facility] Emergency Attender: LEW Gilman: Zack PABON EMERGENCY ROOM-ER 02/17/2017 06:00:00 PM EDT - 02/17/2017 08:30:00 PM [facility] Medications Medication Brand Name Start Date Product [...] MOUTH AT BEDTIME SOLD: 11/11/2020 [facility] [id number] 11/01/2020 12:00:00 AM EST Cream 480 APPLY TO TRUNK AND EXTREMETIES TWO TIMES A DAY NEEDED FOR ITCH APPLY TO TRUNK AND EXTREMETIES TWO TIMES A DAY NEEDED FOR ITCH SOLD: 11/11/2020 [facility] [id number] 11/01/2020 12:00:00 AM EST Cream 240 APPLY [...] Frida 09/25/20 at 1015, For 1 dose [facility] 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 Medication administered onsite nivolumab (OPDIVO) 480 mg in sodium chloride 0.9 % 100 mL ch emo infusion 09/25/2020 10:15:00 AM EST 480 mg Intravenous c ompleted 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 480 mg, I ntravenous, Administer over 30 Minutes, Once, Frida 09/25/20 at 1015, For 1 dose [facility] 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 Medication administered onsite Prednisone 20 MG Oral Tablet predniSONE 20 MG Oral Tab let predniSONE 20 MG Oral Tablet 09/25/2020 12:00:00 AM EST active Take 2, 20 mg tablets po with breakfast x 5 days, then resume 5 mg po BID [facility] 20 mg 09/25/2020 12:00:00 AM EST tablet [...] Frida 08/28/20 at 1000, For 1 dose [facility] Medication administered onsite nivolumab (OPDIVO) 480 mg in sodium chloride 0.9 % 100 mL ch emo infusion 08/28/2020 10:00:00 AM EST 480 mg Intravenous c ompleted 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 480 mg, I ntravenous, Administer over 30 Minutes, Once, [facility] 08/28/20 at 1000, For 1 dose [facility] 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 Medication administered onsite 72 HR Fentanyl 0.025 MG/HR Transdermal P atch fentaNYL 25 MCG/HR Transdermal Patch 72 Hour (DURAGESIC) fentaNYL 25 MCG/HR Transdermal Patch 72 Hour (DURAGESIC) 08/28/2020 12:00:00 AM EST 1 {patch} Transdermal active Place 1 patch onto the skin every 3 (three) days Starting April 16, Max Daily Dose: 1 patch [facility] 10 mg 08/14/2020 12:00:00 AM EST tablet [...] ntravenous, Administer over 30 Minutes, Once, Frida 07/31/20 at 0945, For 1 dose [facility] 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 Medication administered onsite 1.7 ML denosumab 70 MG/ML Injection denosumab (XGEVA) injection 120 mg denosumab (XGEVA) injection 120 mg 07/31/2020 09:30:00 AM EDT 120 mg Subcutan eous completed Malignant melanoma of noseMalignant neoplasm metastatic to b one 120 mg, Subcutaneous, Once, Frida 07/31/20 at 0930, For 1 dose [facility] Malignant melanoma of nose Malignant neoplasm metastatic [...] 6 (six) hours as needed for Itching [facility] 72 HR Fentanyl 0.025 MG/HR Transdermal P atch fentaNYL 25 MCG/HR Transdermal Patch 72 Hour (DURAGESIC) fentaNYL 25 MCG/HR Transdermal Patch 72 Hour (DURAGESIC) 07/31/2020 12:00:00 AM EDT 1 {patch} Transdermal aborted Place 1 patch onto the skin every 3 (three) days Starting April 16, Daily Dose: 1 patch [facility] 100,000 unit/gram 07/25/2020 12:00:00 AM EDT powder [...] EDT ORAL active [facility] ([facility] Metoprolol Tartrate 25 MG Oral Tablet Metoprolol Tartrate 12:00:00 AM EDT ORAL completed [facility] ([facility]) Folic Acid 1 MG Oral Tablet Folic Acid 07/16/2020 12:00:00 AM EDT ORAL active [facility] ([facility]) 324 mg (38 mg iron) 07/14/2020 12:00:00 [...] 1 PATCH EVERY 3 DAYS SOLD: 07/08/2020 [facility] nivolumab (OPDIVO) 480 mg in sodium chloride 0.9 % 100 mL ch emo infusion 07/03/2020 09:45:00 AM EDT 480 mg Intravenous c ompleted 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 480 mg, Intravenous, Administer over 30 Minutes, Once, Frida 07/03/20 at 0945, For 1 dose [facility] 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 Medication administered onsite 72 HR Fentanyl 0.025 MG/HR Transdermal P atch fentaNYL 25 MCG/HR Transdermal Patch 72 Hour (DURAGESIC) fentaNYL 25 MCG/HR Transdermal Patch 72 Hour (DURAGESIC) 07/03/2020 12:00:00 AM EDT 1 {patch} Transdermal aborted Place 1 patch onto the skin every 3 (three) days Starting April 16, Max Daily Dose: 1 patch [facility] 100,000 unit/gram 06/16/2020 12:00:00 AM EDT powder 30 APPLY TO AFFECTED AREA(S) ON GROIN TWO TIMES A DAY NEEDED APPLY TO AFFECTED AREA(S) ON GROIN TWO TIMES A DAY NEEDED SOLD: 07/08/2020 [facility] 100,000 unit/gram 06/16/2020 12:00:00 AM EDT powder 30 APPLY TO AFFECTED AREA(S) ON GROIN TWO TIMES A DAY NEEDED APPLY TO AFFECTED AREA(S) ON GROIN TWO TIMES A DAY NEEDED SOLD: 06/19/2020 [facility] pantoprazole 40 MG Delayed Release Oral Tablet PANTOPRAZOLE SODIUM 06/15/2020 12:00:00 AM EDT tablet,delayed release (DR/EC) 30 T RUSSELL ONE TABLET BY MOUTH EVERY DAY TAKE ONE TABLET BY MOUTH EVERY DAY SOLD: 10/14/2020 [facility] pantoprazole 40 MG Delayed Release Oral Tablet PANTOPRAZOLE SODIUM 06/15/2020 12:00:00 AM EDT tablet,delayed release (DR/EC) 30 T RUSSELL ONE TABLET BY MOUTH EVERY DAY TAKE ONE TABLET BY MOUTH EVERY DAY SOLD: 11/11/2020 [facility] 40 mg 06/15/2020 12:00:00 AM EDT tablet,delayed release (DR/EC) 90 TAKE ONE TABLET BY MOUTH EVERY DAY TAKE ONE TABLET BY MOUTH EVERY DAY SOLD: 06/19/2020 [facility] pantoprazole 40 MG Delayed Release Oral Tablet PANTOPRAZOLE SODIUM 06/15/2020 12:00:00 AM EDT tablet,delayed release (DR/EC) 30 T RUSSELL ONE TABLET BY MOUTH EVERY DAY TAKE ONE TABLET BY MOUTH EVERY DAY SOLD: 08/19/2020 [facility] pantoprazole 40 MG Delayed Release Oral Tablet [...] ONE CAPSULE BY MOUTH NIGHTLY SOLD: 07/12/2020 [facility] nivolumab (OPDIVO) 480 mg in sodium chloride 0.9 % 100 mL ch emo infusion 06/05/2020 09:45:00 AM EDT 480 mg Intravenous c ompleted 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 480 mg, Intravenous, Administer over 30 Minutes, Once, Frida 06/05/20 at 0945, For 1 dose [facility] 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 Medication administered onsite 1.7 ML denosumab 70 MG/ML Injection denosumab (XGEVA) injection 120 mg denosumab (XGEVA) injection 120 mg 06/05/2020 09:45:00 AM EDT 120 mg Subcuta neous completed Malignant melanoma of noseMalignant neoplasm metastatic to b one 120 mg, Subcutaneous, Once, Frida 06/05/20 at 0945, For 1 dose [facility] Malignant melanoma of nose Malignant neoplasm metastatic [...] Starting April 16, Daily Dose: 1 patch [facility] 100,000 unit/gram 05/23/2020 12:00:00 AM EDT cream [...] Frida 05/08/20 at 1145, For 1 dose [facility] 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 Medication administered onsite 1.7 ML denosumab 70 MG/ML Injection denosumab (XGEVA) injection 120 mg denosumab (XGEVA) injection 120 mg 05/08/2020 11:45:00 AM EDT 120 mg Subcuta neous completed Malignant melanoma of noseMalignant neoplasm metastatic to b one 120 mg, Subcutaneous, Once, Frida 05/08/20 at 1145, For 1 dose [facility] Malignant melanoma of nose Malignant neoplasm metastatic [...] TWO TIMES A DAY NEEDED SOLD: 06/03/2020 [facility] 300 mg 05/07/2020 12:00:00 AM EDT tablet 90 TAKE ONE TABLET BY MOUTH EVERY DAY TAKE ONE TABLET BY MOUTH EVERY DAY SOLD: 05/13/2020 [facility] 100,000 unit/gram 05/01/2020 12:00:00 AM EDT cream 30 APPLY TO GROIN AREA TWO TIMES A DAY FOR 2 WEEKS APPLY TO GROIN AREA TWO TIMES A DAY FOR 2 WEEKS SOLD: 05/01/2020 [facility] 5 mg 04/17/2020 12:00:00 AM EDT tablet 30 TAKE ONE TABLET BY MOUTH EVERY DAY TAKE ONE TABLET BY MOUTH EVERY DAY SOLD: 04/20/2020 [facility] 72 HR Fentanyl 0.025 MG/HR Transdermal System FENTANYL 04/16/2020 12:00:00 AM EDT patch 72 hour 10 APPLY ONE PATCH TO THE SKIN EVERY 3 DAYS STARTING 04/16/20; MAX 1 PATCH PER 72 HOURS APPLY ONE PATCH TO THE SKIN EVERY 3 DAYS STARTING 04/16/20; MAX 1 PATCH PER 72 HOURS SOLD: 04/16/2020 [facility] 1.7 ML denosumab 70 MG/ML Injection denosumab (XGEVA) injection 120 mg denosumab (XGEVA) injection 120 mg 04/10/2020 11:30:00 AM EDT 120 mg Subcuta neous completed Malignant melanoma of noseMalignant neoplasm metastatic to b one 120 mg, Subcutaneous, Once, Frida 04/10/20 at 1130, For 1 dose [facility] 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 Medication administered onsite nivolumab (OPDIVO) 480 mg in sodium chloride 0.9 % 100 mL ch emo infusion 04/10/2020 10:30:00 AM EDT 480 mg Intravenous c ompleted 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 480 mg, Intravenous, Administer over 30 Minutes, Once, Frida 7 at 1030, For 1 dose [facility] 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 72 HR Fentanyl 0.025 MG/HR Transdermal P atch fentaNYL 25 MCG/HR Transdermal Patch 72 Hour (DURAGESIC) fentaNYL 25 MCG/HR Transdermal Patch 72 Hour (DURAGESIC) 04/10/2020 12:00:00 AM EDT 1 {patch} Transdermal aborted Place 1 patch onto the skin every 3 (three) days for 3 daysStarting April 16 Daily Dose: 1 patch [facility] 0.05 % 04/10/2020 12:00:00 AM EDT cream 60 APPLY TO AFFECTED AREA TOPICALLY TWO TIMES A DAY APPLY TO AFFECTED AREA TOPICALLY TWO TIMES A DAY SOLD: 06/19/2020 [facility] 0.05 % 04/10/2020 12:00:00 AM EDT [...] TABLETS BY MOUTH EVERY DAY SOLD: 08/03/2020 [facility] 72 HR Fentanyl 0.025 MG/HR Transdermal P atch fentaNYL 25 MCG/HR Transdermal Patch 72 Hour (DURAGESIC) fentaNYL 25 MCG/HR Transdermal Patch 72 Hour (DURAGESIC) 03/19/2020 12:00:00 AM EDT 1 {patch} Transdermal aborted Place 1 patch onto the skin every 3 (three) days for 3 days, Max Daily Dose: 1 patch [facility] 2.5 mg 03/19/2020 12:00:00 AM EDT tablet 14 TAKE ONE TABLET BY MOUTH TWICE A DAY TAKE ONE TABLET BY MOUTH TWICE A DAY SOLD: 03/19/2020 [facility] 72 HR Fentanyl 0.025 MG/HR Transdermal [...] 1 PATCH EVERY 72 HOURS SOLD: 03/21/2020 [facility] nivolumab (OPDIVO) 480 mg in sodium chloride 0.9 % 100 mL ch emo infusion 03/13/2020 11:00:00 AM EDT 480 mg Intravenous c ompleted Encounter for antineoplastic immunotherapyMalignant neoplasm metastatic to bone 480 mg, Intravenous, Administer over 30 Minutes, Once, [facility] 03/13/20 at 1100, For 1 dose [facility] Encounter for antineoplastic immunothera py Malignant neoplasm metastatic to bone Medication administered onsite Oxymetazoline hydrochloride 0.5 MG/ML Na leelee Churdan Oxymetazoline HCl 0.05 % Nasal Solution (AFRIN) Oxymetazoline HCl 0.05 % Nasal Solution (AFRIN) 2019 12:00:00 AM EDT 3 {spray} Nasal aborted 3 sprays by Nasal route daily as needed for Congestion for up to 3 days [facility] Oxymetazoline hydrochloride 0.5 MG/ML Na leelee Churdan Oxymetazoline HCl 0.05 % Nasal Solution (AFRIN) Oxymetazoline HCl 0.05 % Nasal Solution (AFRIN) 2019 12:00:00 AM EDT 3 {spray} Nasal completed 3 sprays by Nasal route daily as needed for Congestion for up to 3 days [facility] 72 HR Fentanyl 0.025 MG/HR Transdermal P atch fentaNYL 25 MCG/HR Transdermal Patch 72 Hour (DURAGESIC) fentaNYL 25 MCG/HR Transdermal Patch 72 Hour (DURAGESIC) 03/12/2020 12:00:00 AM EDT 1 {patch} Transdermal aborted Place 1 patch onto the skin every 3 (three) days for 3 days, Max Daily Dose: 1 patch [facility] Sodium Chloride 0.111 MEQ/ML Nasal Solut ion Saline Nasal Churdan 0.65 % Nasal Solution (OCEAN) Saline Nasal Churdan 0.65 % Nasal Solution (OCEAN) 03/12 12:00:00 AM EDT 2 {spray} Nasal completed 2 sprays by Nasal route every hour as needed for Congestion for up to 10 days [facility] Oxymetazoline hydrochloride 0.5 MG/ML Na leelee Churdan Oxymetazoline HCl 0.05 % Nasal Solution (AFRIN) Oxymetazoline HCl 0.05 % Nasal Solution (AFRIN) 2019 12:00:00 AM EDT 3 {spray} Nasal aborted 3 sprays by Nasal route daily as needed for Congestion for up to 10 days [facility] sennosides, SKILLED NURSING 8.6 MG Oral Tablet senna 8.6 MG 2 tablet sen na 8.6 MG 2 tablet 03/11/2020 10:00:00 PM EDT 2 {tbl} Oral active 2 tablet, Oral, Nightly, First dose on Tue03/11/20 at 2200, For 30 days [facility] Medication administered onsite iron sucrose (VENOFER) 200 mg in sodium chloride 0.9 % 100 m L IVPB 03/11/2020 02:30:00 PM EDT 200 mg Intravenous completed 200 mg, Intravenous, Administer over 60 Minutes, Once, Tue03/11/20 at 1430, For 1 dose [facility] Medication administered onsite POLYETHYLENE GLYCOL [id number] [...] due to potential increased risk for aspiration.
[facility] Medication administered onsite Bisacodyl 10 MG Rectal Suppository bisacodyl (DULCOLAX ) suppository 10 mg bisacodyl (DULCOLAX) suppository 10 mg 03/11/2020 08:42:23 AM EDT 10 mg Rectal active 10 mg, Rectal, Daily PRN, Constipation, Starting Tue03/11/20 at 0842, For 30 days [facility] Medication administered onsite Oxymetazoline hydrochloride 0.5 MG/ML Na leelee Churdan oxymetazoline (AFRIN) 0.05 % nasal spray 3 spray oxymetazoline (AFRIN) 0.05 % nasal spray 3 spray 03/11 06:02:10 AM EDT 3 {spray} Nasal active 3 spray, Nasal, Daily PRN, Congestion, Starting Tue03/11/20 at 0602, For 3 days
if acute bleed, 3 squirts per nare & holding direct pressure x 20 minutes
[facility] Medication administered onsite ferrous gluconate 324 MG Oral Tablet Ferrous Gluconate (FERGON) tablet 324 mg Ferrous Gluconate (FERGON) tablet 324 mg 03/10/2020 09:00:00 PM EDT 324 mg Oral active 324 mg, Oral, 2 Times Daily, First dose on Tue03/10/20 at 2100, For 30 days [facility] Medication administered onsite Folic Acid 1 MG Oral Tablet folic acid (FOLVITE) table t 1 mg folic acid (FOLVITE) tablet 1 mg 03/10/2020 02:00:00 PM EDT 1 mg Oral active 1 mg, Oral, Daily Standard, First dose (after last modification) on Tue03/10/20 at 1400, For 30 days [facility] Medication administered onsite 25 mcg/hr 03/10/2020 12:00:00 [...] Drugs epoetin chiqui-epbx (RETACRIT) injection 10,000 Units [id number] 03/09/2020 11:00:00 AM EDT 94954 U Subcutaneous completed Chemotherapy-Shelley deion Anemia 10,000 Units, Subcutaneous, Once, Indications: Chemotherapy-Induced Anemia, [place] 03/09/20 at 1100, For 1 dose [facility] Chemotherapy-Induced Anemia Medication administered onsite iron sucrose (VENOFER) 100 mg in sodium chloride 0.9 % 100 m L IVPB 03/09/2020 08:15:00 AM EDT 100 mg Intravenous completed 100 mg, Intravenous, Administer over 60 Minutes, Once, [place] 03/09/20 at 0815, For 1 dose [facility] Medication administered onsite 324 mg (38 mg [...] [facility] furosemide (LASIX) injection 40 mg [id number] 03/07/2020 10:30:00 PM EDT 40 mg Intravenous completed 40 mg, I ntravenous, Once, Tue03/07/20 at 2230, For 1 dose
Please give post-transfusion completion
[facility] Medication administered onsite gabapentin 100 MG Oral Capsule gabapentin (NEURONTIN) capsule 100 mg gabapentin (NEURONTIN) capsule 100 mg 03/07/2020 10:00:00 PM EDT 100 mg Oral active 100 mg, Oral, Nightly, First dose on Tue03/07/20 at 2200, For 30 days [facility] Medication administered onsite Simvastatin 20 MG Oral Tablet simvastatin (ZOCOR) tabl et 20 mg simvastatin (ZOCOR) tablet 20 mg 03/07/2020 10:00:00 PM EDT 20 mg Oral active 20 mg, Oral, Nightly, First dose on Tue03/07/20 at 2200, For 30 days [facility] Medication administered onsite torsemide 20 MG Oral Tablet torsemide (DEMADEX) tablet 40 mg torsemide (DEMADEX) tablet 40 mg 03/07/2020 09:00:00 PM EDT 40 mg Oral acti ve 40 mg, Oral, Every evening, First dose on Tue03/07/20 at 2100, For 30 days [facility] Medication administered onsite Minoxidil 10 MG Oral Tablet minoxidil (LONITEN) tablet 10 mg minoxidil (LONITEN) tablet 10 mg 03/07/2020 09:00:00 PM EDT 10 mg Oral acti ve 10 mg, Oral, 2 Times Daily, First dose on Tue03/07/20 at 2100, For 30 days
Check vital signs before administering
[facility] Medication administered onsite furosemide (LASIX) injection 80 mg [id number] 03/07/2020 02:45:00 PM EDT 80 mg Intravenous completed 80 mg, I ntravenous, Once, Tue03/07/20 at 1445, For 1 dose [facility] Medication administered onsite Calcium Carbonate 500 MG Chewable Tablet calcium carbonate (TUMS) chewable tablet 500 mg calcium carbonate (TUMS) chewable tablet 500 mg 2019 09:00:00 AM EDT 500 mg Oral active 500 mg, Oral, Four Times Daily Standard, First dose on Tue03/07/20 at 0900, For 30 days [facility] Medication administered onsite Calcitriol 0.15884 MG Oral Capsule calcitRIOL (ROCALTR OL) capsule 0.5 mcg calcitRIOL (ROCALTROL) capsule 0.5 mcg 03/07/2020 09:00:00 AM EDT 0 .5 ug Oral active 0.5 mcg, Oral, Daily Standard, First dose on Tue03/07/20 at 0900, For 30 days [facility] Medication administered onsite Amlodipine 5 MG Oral Tablet amlodipine (NORVASC) table t 10 mg amlodipine (NORVASC) tablet 10 mg 03/07/2020 09:00:00 AM EDT 10 mg Oral active 10 mg, Oral, Daily Standard, First dose on Tue03/07/20 at 0900, For 8 doses [facility] Medication administered onsite pantoprazole 40 MG Delayed Release Oral Tablet pantoprazole (PROTONIX) EC tablet 40 mg pantoprazole (PROTONIX) EC tablet 40 mg 03/07/2020 09:00:00 AM E DT 40 mg Oral active 40 mg, Ora l, Daily Standard, First dose on Tue03/07/20 at 0900, For 30 days
Do not crush or chew
[facility] Medication administered onsite Metoprolol Tartrate 25 MG Oral Tablet me toprolol tartrate (LOPRESSOR) tablet 25 mg metoprolol tartrate (LOPRESSOR) tablet 25 mg 03/07/2020 09:00:00 AM EDT 25 mg Oral active 25 mg, Ora l, 2 Times Daily, First dose on Tue03/07/20 at 0900, For 30 days [facility] Medication administered onsite torsemide 20 MG Oral Tablet torsemide (DEMADEX) tablet 100 mg torsemide (DEMADEX) tablet 100 mg 03/07/2020 09:00:00 AM EDT 100 mg Oral active 100 mg, Oral, Daily Standard, First dose on Tue03/07/20 at 0900, For 30 days [facility] Medication administered onsite Prednisone 5 MG Oral Tablet predniSONE (DELTASONE) tab let 10 mg predniSONE (DELTASONE) tablet 10 mg 03/07/2020 09:00:00 AM EDT 10 mg Oral active 10 mg, Oral, Daily Standard, First dose on Tue03/07/20 at 0900, For 10 doses [facility] Medication administered onsite Allopurinol 300 MG Oral Tablet allopurinol (ZYLOPRIM) tablet 300 mg allopurinol (ZYLOPRIM) tablet 300 mg 03/07/2020 09:00:00 AM EDT 300 mg Oral active 300 mg, Oral, Daily Standard, First dose on Tue at 0900, For 30 days [facility] Medication administered onsite 72 HR Fentanyl 0.025 MG/HR Transdermal P atch fentaNYL (DURAGESIC) 25 MCG/HR transdermal patch 1 patch fentaNYL (DURAGESIC) 25 MCG/HR transderm al patch 1 patch 03/07/2020 05:30:00 AM EDT 1 {patch} Transdermal com pleted 1 patch, Transdermal, Administer over 72 Hours, Every 72 hours, First dose on Tue03/07/20 at 0530, For 3 doses [facility] Medication administered onsite Oxymetazoline hydrochloride 0.5 MG/ML Na leelee Churdan oxymetazoline (AFRIN) 0.05 % nasal spray 3 spray oxymetazoline (AFRIN) 0.05 % nasal spray 3 spray 03/07 03:59:09 AM EDT 3 {spray} Nasal aborted 3 spray, Nasal, Daily PRN, Congestion, Starting Tue03/07/20 at 0359, For 3 days
if acute bleed, 3 squirts per nare & holding direct pressure x 20 minutes
[facility] Medication administered onsite Sodium Chloride 0.111 MEQ/ML Nasal Solut ion sodium chloride (OCEAN) 0.65 % nasal spray 2 spray sodium chloride (OCEAN) 0.65 % nasal spray 2 spray 03:53:51 AM EDT 2 {spray} Each Nare active 2 spray, Each Nare, Every 1 hour PRN, Congestion, Starting Tue03/07/20 at 0353, For 30 days [facility] Medication administered onsite NaCl infusion 0.9 % [id number] 03/07/2020 02:00:00 AM EDT Intravenous aborted at 75 mL/hr, Intrave nous, Continuous, Starting Tue03/07/20 at 0200, For 12 hours [facility] Medication administered onsite Cyclobenzaprine hydrochloride 10 MG Oral Tablet cyclobenzaprine (FLEXERIL) tablet 10 mg cyclobenzaprine (FLEXERIL) tablet 10 mg 03/07/2020 01:48:15 AM EDT 10 mg Oral active 10 mg, Oral, Thr ee Times Daily-PRN, Muscle spasms, Starting Tue03/07/20 at 0148, For 30 days [facility] Medication administered onsite 72 HR Fentanyl 0.025 MG/HR Transdermal P atch fentaNYL 25 MCG/HR Transdermal Patch 72 Hour (DURAGESIC) fentaNYL 25 MCG/HR Transdermal Patch 72 Hour (DURAGESIC) 03/07/2020 12:00:00 AM EDT 1 {patch} Transdermal aborted Place 1 patch onto the skin every 3 (three) days for 3 days, Max Daily Dose: 1 patch [facility] Oxymetazoline hydrochloride 0.5 MG/ML Na leelee Churdan oxymetazoline (AFRIN) 0.05 % nasal spray 2 spray oxymetazoline (AFRIN) 0.05 % nasal spray 2 spray 03/06 09:00:00 PM EDT 2 {spray} Each Nare completed 2 spray, Each Nare, Once, [facility] 03/06/20 at 2100, For 1 dose
To bedside for ENT.
[facility] Medication administered onsite 10 mg 03/06/2020 12:00:00 [...] Take 1 tablet by mouth daily [facility] 10 mg 03/06/2020 12:00:00 AM EDT tablet [...] Take 1 capsule by mo uth daily [facility] 10 mg 03/06/2020 12:00:00 AM EDT tablet [...] Once, Tue at 1445, For 1 dose [facility] Medication administered onsite Cephalexin 250 MG Oral Capsule cephalexin (KEFLEX) cap wilfredo 250 mg cephalexin (KEFLEX) capsule 250 mg 03/05/2020 01:15:00 PM EDT 250 mg Oral completed 250 mg, Oral, Once, Tue03/05/20 at 1315, For 1 dose [facility] Medication administered onsite iron sucrose (VENOFER) 400 mg in sodium chloride 0.9 % 250 m L IVPB 03/05/2020 11:15:00 AM EDT 400 mg Intravenous completed 400 mg, Intravenous, Administer over 4 Hours, Once, Tue03/05/20 at 1115, For 1 dose [facility] Medication administered onsite epoetin chiqui-epbx (RETACRIT) injection 10,000 Units 03/05/2020 11:00:00 AM EDT 20577 U Subcutaneous completed Anemia associated with Chronic Renal Failure 10,000 Units, Subcutaneous, Once, Indications: Anemia associated with Chronic Renal Failure, Tue03/05/20 at 1100, For 1 dose [facility] Anemia associated with Chronic Renal [facility] Medication administered onsite Minoxidil 10 MG Oral Tablet minoxidil (LONITEN) tablet 10 mg minoxidil (LONITEN) tablet 10 mg 03/05/2020 09:00:00 AM EDT 10 mg Oral acti ve 10 mg, Oral, 2 Times Daily, First dose (after last modification) on Tue03/05/20 at 0900, For 52 doses
Check vital signs before administering
[facility] Medication administered onsite Oxymetazoline hydrochloride 0.5 MG/ML Na leelee Churdan oxymetazoline (AFRIN) 0.05 % nasal spray 2 spray oxymetazoline (AFRIN) 0.05 % nasal spray 2 spray 03/05 09:00:00 AM EDT 2 {spray} Each Nare active 2 spray, Each Nare, 2 Times Daily, First dose on Tue03/05/20 at 0900, For 3 days [facility] Medication administered onsite 4 ML Labetalol hydrochloride 5 MG/ML [place] labetalol (TRANDATE) injection 20 mg labetalol (TRANDATE) injection 20 mg 03/05/2020 05:30:00 AM EDT 20 mg Intravenous completed 20 mg, Intrav enous, Once, Tue03/05/20 at 0530, For 1 dose [facility] Medication administered onsite Oxycodone Hydrochloride 5 MG Oral Tablet oxyCODONE HCl 5 MG Oral Tablet (ROXICODONE) oxyCODONE HCl 5 MG Oral Tablet (ROXICODONE) 03/05/2020 12:00:00 AM EDT 5 mg Oral aborted Take 1 t ablet by mouth every 4 (four) hours as needed for up to 3 days, Max Daily Dose: 30 mg [facility] Cyclobenzaprine hydrochloride 10 MG Oral Tablet CYCLOBENZAPR [...] Take 1 capsule by mo ut nightly [facility] alginic acid 200 MG / Calcium Carbonate 80 MG / magnesium trisilicate 20 MG / Sodium Bicarbonate 70 MG Oral Tablet Calcium Carbonate Antacid 500 MG Oral Tablet Chewable (TUMS) Calcium Carbonate Antacid 500 MG Oral Ta blet Chewable (TUMS) 03/05/2020 12:00:00 AM EDT 500 mg Oral active Chew 1 tablet by Mouth Four times daily [facility] Cyclobenzaprine hydrochloride 10 MG Oral Tablet Cyclobenzaprine HCl 10 MG Oral Tablet (FLEXERIL) Cyclobenzaprine HCl 10 MG Oral Tablet (FLEXERIL) 03/05 12:00:00 AM EDT 10 mg Oral completed Take 1 tablet by mouth Three times daily as needed for Muscle spasms for up to 10 days [facility] 5 mg 03/05/2020 12:00:00 AM EDT tablet 18 TAKE ONE TABLET BY MOUTH EVERY 4 HOURS NEEDED MAXIMUM DAILY DOSE = 6 TAKE ONE TABLET BY MOUTH EVERY 4 HOURS A S NEEDED MAXIMUM DAILY DOSE = 6 SOLD: 03/05/2020 [facility] Acetaminophen 325 MG Oral Tablet Acetaminophen 325 MG Oral T ablet 03/05/2020 12:00:00 AM EDT 650 mg Oral completed Take 2 tablets by mouth every 6 (six) hours as needed for Pain [facility] Minoxidil 10 MG Oral Tablet Minoxidil 10 MG Oral Table t (LONITEN) Minoxidil 10 MG Oral Tablet (LONITEN) 03/05/2020 12:00:00 AM EDT 10 mg Oral active Take 1 tablet by mouth Two Times Daily [facility] 325 mg 03/05/2020 12:00:00 AM EDT tablet 30 TAKE TWO TABLETS BY MOUTH EVERY 6 HOURS NEEDED FOR PAIN TAKE TWO TABLETS BY MOUTH EVERY 6 HOURS NEEDED FOR PAIN SOLD: 03/05/2020 [facility] 10 mg 03/05/2020 12:00:00 AM EDT tablet 30 TAKE ONE TABLET BY MOUTH EVERY DAY TAKE ONE TABLET BY MOUTH EVERY DAY SOLD: 03/05/2020 [facility] Cephalexin 250 MG Oral Capsule Cephalexin 250 MG Oral Capsule (KEFLEX) Cephalexin 250 MG Oral Capsule (KEFLEX) 03/05/2020 12:00:00 AM EDT 250 mg Oral active Take 1 capsule by mo [facility] Two Times Daily for 7 days [facility] Metoprolol Tartrate 25 MG Oral Tablet Me toprolol Tartrate 25 MG Oral Tablet (LOPRESSOR) Metoprolol Tartrate 25 MG Oral Tablet (LOPRESSOR) 02/08 12:00:00 AM EDT 25 mg Oral active Take 1 tablet by mouth Two Times Daily [facility] 250 mg 03/05/2020 12:00:00 AM EDT capsule 14 TAKE ONE CAPSULE BY MOUTH TWICE A DAY FOR 7 DAYS TAKE ONE CAPSULE BY MOUTH TWICE A DAY FOR 7 DAYS SOLD: 03/05/2020 [facility] oxyCODONE (ROXICODONE) immediate release tablet 5 [...] Service consultation and approval.
[Order 2 End] [facility] Medication administered onsite TC-99M medronate (Tc-MDP) [id number] 03/04/2020 09:30:00 AM EDT Intravenous completed Intravenous, Once, Tue03/04/20 at 0930, For 1 dose, Imaging Protocol [facility] Medication administered onsite Cyclobenzaprine hydrochloride 10 MG Oral Tablet cyclobenzaprine (FLEXERIL) tablet 10 mg cyclobenzaprine (FLEXERIL) tablet 10 mg 03/02/2020 11:16:42 AM EDT 10 mg Oral active 10 mg, Oral, Thr ee Times Daily-PRN, Muscle spasms, Starting 03/02/20 at 1116, For 30 days [facility] Medication administered onsite Calcitriol 0.0005 MG Oral Capsule calcitRIOL (ROCALTRO L) capsule 0.5 mcg calcitRIOL (ROCALTROL) capsule 0.5 mcg 03/02/2020 09:00:00 AM EDT 0 .5 ug Oral active 0.5 mcg, Oral, Daily Standard, First dose (after last modification) on 03/02/20 at 0900, For 29 doses [facility] Medication administered onsite Magnesium Oxide 400 MG Oral Tablet Magnesium Oxide (MA G-OX) tablet 400 mg Magnesium Oxide (MAG-OX) tablet 400 mg 03/02/2020 09:00:00 AM EDT 4 00 mg Oral active 400 mg, Oral, 2 Times Daily, First dose on 03/02/20 at 0900, For 30 days [facility] Medication administered onsite calcium gluconate in NaCl 0.9 % infusion 1 g/50 mL [id number] 03/02/2020 07:45:00 AM EDT 1 g Intravenous completed 1 g, Intravenous, Administer over 1 Hours, Once, 03/02/20 at 0745, For 1 dose
1 g calcium gluconate = 90 mg elemental Ca++ = 4.5 mEq Ca++. Dosed on mg of calcium gluconate.
[facility] Medication administered onsite calcium gluconate in NaCl 0.9 % infusion 1 g/50 mL [id number] 03/02/2020 07:45:00 AM EDT 1 g Intravenous completed 1 g, Intravenous, Administer over 1 Hours, Once, 03/02/20 at 0745, For 1 dose
1 g calcium gluconate = 90 mg elemental Ca++ = 4.5 mEq Ca++. Dosed on mg of calcium gluconate.
[facility] Medication administered onsite Calcium Carbonate 500 MG Chewable Tablet calcium carbonate (TUMS) chewable tablet 500 mg calcium carbonate (TUMS) chewable tablet 500 mg 2019 07:30:00 AM EDT 500 mg Oral active 500 mg, Oral, Four Times Daily Standard, First dose on 03/02/20 at 0730, For 30 days [facility] Medication administered onsite gabapentin 100 MG Oral Capsule gabapentin (NEURONTIN) capsule 100 mg gabapentin (NEURONTIN) capsule 100 mg 03/01/2020 10:00:00 PM EDT 100 mg Oral active 100 mg, Oral, Nightly, First dose on 03/01/20 at 2200, For 30 days [facility] Medication administered onsite torsemide 20 MG Oral Tablet torsemide (DEMADEX) tablet 60 mg torsemide (DEMADEX) tablet 60 mg 03/01/2020 10:00:00 PM EDT 60 mg Oral activ e 60 mg, Oral, Nightly, First dose on 03/01/20 at 2200, For 30 days [facility] Medication administered onsite Simvastatin 20 MG Oral Tablet simvastatin (ZOCOR) tabl et 20 mg simvastatin (ZOCOR) tablet 20 mg 03/01/2020 10:00:00 PM EDT 20 mg Oral active 20 mg, Oral, Nightly, First dose on 03/01/20 at 2200, For 30 days [facility] Medication administered onsite Minoxidil 2.5 MG Oral Tablet minoxidil (LONITEN) table t 5 mg minoxidil (LONITEN) tablet 5 mg 03/01/2020 09:00:00 PM EDT 5 mg Oral aborte d 5 mg, Oral, 2 Times Daily, First dose (after last modification) on 03/01/20 at 2100, For 59 doses
Check vital signs before administering
[facility] Medication administered onsite calcium gluconate in NaCl 0.9 % infusion 1 g/50 mL [id number] 03/01/2020 05:15:00 PM EDT 1 g Intravenous completed 1 g, Intravenous, Administer over 1 Hours, Once, 03/01/20 at 1715, For 1 dose
1 g calcium gluconate = 90 mg elemental Ca++ = 4.5 mEq Ca++. Dosed on mg of calcium gluconate.
[facility] Medication administered onsite Acetaminophen 325 MG Oral Tablet acetaminophen (TYLENO L) tablet 975 mg acetaminophen (TYLENOL) tablet 975 mg 03/01/2020 03:30:00 PM EDT 97 5 mg Oral active 975 mg, Oral, E very 8 hours, First dose on 03/01/20 at 1530, For 30 days
Maximum daily dose of acetaminophen is 3,000 mg from all sources in 24 hours.
[facility] Medication administered onsite 72 HR Fentanyl 0.025 MG/HR Transdermal P atch fentaNYL (DURAGESIC) 25 MCG/HR transdermal patch 1 patch fentaNYL (DURAGESIC) 25 MCG/HR transderm al patch 1 patch 03/01/2020 02:45:00 PM EDT 1 {patch} Transdermal act napoleon 1 patch, Transdermal, Administer over 72 Hours, Every 72 hours, First dose on 03/01/20 at 1445, For 7 days [facility] Medication administered onsite 72 HR Fentanyl 0.05 MG/HR Transdermal Pa tch fentaNYL (DURAGESIC) 50 MCG/HR transdermal patch 1 patch fentaNYL (DURAGESIC) 50 MCG/HR transderm al patch 1 patch 03/01/2020 01:30:00 PM EDT 1 {patch} Transdermal abo rted 1 patch, Transdermal, Administer over 72 Hours, Every 72 hours, First dose on 03/01/20 at 1330, For 7 days [facility] Medication administered onsite 120 ACTUAT Albuterol 0.1 MG/ACTUAT / Ipr atropium [place] 0.02 MG/ACTUAT Metered Dose Inhaler ipratropium-albuterol (COMBIVENT RESPIMAT) inhaler 1 puff ipratropium-albuterol (COMBIVENT RESPIMAT) inhaler 1 puff 03/01/2020 11:48:40 AM EDT 1 {puff} Inhalation active 1 pu ff, Inhalation, Every 6 hours PRN, Wheezing, Starting 03/01/20 at 1148, For 6 days 20 hours [facility] Medication administered onsite fentaNYL (SUBLIMAZE) (PF) injection 25 mcg [id number] 03/01/2020 11:04:55 AM EDT 25 ug Intravenous aborted 25 m cg, Intravenous, Every 2 hours PRN, Severe Pain (Pain Scale Score 7-10), Starting 03/01/20 at 1104, For 1 day [facility] Medication administered onsite heparin (porcine) 5000 UNIT/ML injection 5,000 Units [id number] 03/01/2020 09:00:00 AM EDT 5000 U Subcutaneous active 5,000 Units, Subcutaneous, Three Times Daily Standard, First dose on 03/01/20 at 0900, For 30 days [facility] Medication administered onsite Prednisone 5 MG Oral Tablet predniSONE (DELTASONE) tab let 10 mg predniSONE (DELTASONE) tablet 10 mg 03/01/2020 09:00:00 AM EDT 10 mg Oral active 10 mg, Oral, Daily Standard, First dose (after last modification) on 03/01/20 at 0900, For 30 days
Take with food.
[facility] Medication administered onsite torsemide 100 MG Oral Tablet torsemide (DEMADEX) table t 100 mg torsemide (DEMADEX) tablet 100 mg 03/01/2020 09:00:00 AM EDT 100 mg Oral active 100 mg, Oral, Daily Standard, First dose (after last modification) on 03/01/20 at 0900, For 10 days [facility] Medication administered onsite Amlodipine 5 MG Oral Tablet amlodipine (NORVASC) table t 10 mg amlodipine (NORVASC) tablet 10 mg 03/01/2020 09:00:00 AM EDT 10 mg Oral active 10 mg, Oral, Daily Standard, First dose on 03/01/20 at 0900, For 30 doses [facility] Medication administered onsite ferrous gluconate 324 MG Oral Tablet Ferrous Gluconate (FERGON) tablet 324 mg Ferrous Gluconate (FERGON) tablet 324 mg 03/01/2020 09:00:00 AM EDT 324 mg Oral active 324 mg, Oral, 2 Times Daily, First dose on 03/01/20 at 0900, For 30 days [facility] Medication administered onsite Folic Acid 1 MG Oral Tablet folic acid (FOLVITE) table t 1 mg folic acid (FOLVITE) tablet 1 mg 03/01/2020 09:00:00 AM EDT 1 mg Oral active 1 mg, Oral, Daily Standard, First dose on 03/01/20 at 0900, For 30 days [facility] Medication administered onsite cetirizine hydrochloride 10 MG Oral Tablet cetirizine (ZYRTEC) tablet 10 mg cetirizine (ZYRTEC) tablet 10 mg 03/01/2020 09:00:00 AM EDT 10 mg Oral active 10 mg, Oral, Daily Standard, First dose on 03/01/20 at 0900, For 30 days [facility] Medication administered onsite Vitamin B6 50 MG Oral Tablet vitamin B-6 (PYRIDOXINE) tablet 100 mg vitamin B-6 (PYRIDOXINE) tablet 100 mg 03/01/2020 09:00:00 AM EDT 100 mg Oral active 100 mg, Oral, Daily Standar d, First dose on 03/01/20 at 0900, For 30 doses [facility] Medication administered onsite pantoprazole 40 MG Delayed Release Oral Tablet pantoprazole (PROTONIX) EC tablet 40 mg pantoprazole (PROTONIX) EC tablet 40 mg 03/01/2020 09:00:00 AM E DT 40 mg Oral active 40 mg, Ora l, Daily Standard, First dose on 03/01/20 at 0900, For 30 days
Do not crush or chew
[facility] Medication administered onsite Allopurinol 300 MG Oral Tablet allopurinol (ZYLOPRIM) tablet 300 mg allopurinol (ZYLOPRIM) tablet 300 mg 03/01/2020 09:00:00 AM EDT 300 mg Oral active 300 mg, Oral, Daily Standard, First dose on Sat at 0900, For 30 days [facility] Medication administered onsite albuterol (PROVENTIL HFA) inhaler 2 puff [id number] 03/01/2020 05:19:35 AM EDT 2 {puff} Inhalation active 2 pu ff, Inhalation, Every 4 hours PRN, Wheezing, Shortness of Breath, Starting 03/01/20 at 0519, For 7 days 2 hours
Shake the inhaler well before each spray.
[facility] Medication administered onsite Acetaminophen 325 MG Oral [...] mg from all sources in 24 hours.
[facility] Medication administered onsite 20 mg 02/21/2020 12:00:00 [...] Intravenous, Adminis ter over 30 Minutes, Once, [facility] 02/14/20 at 1400, For 1 dose [facility] Malignant melanoma of nose Medication administered onsite Calcitriol 0.98751 MG Oral Capsule 0.25 mcg CALCITRIOL 02/12/2020 12:00:00 AM EDT capsule 180 TAKE 2 CAPSULES BY MOUTH ONC E A DAY TAKE 2 CAPSULES BY MOUTH ONCE A DAY SOLD: 05/13/2020 [facility] Calcitriol 0.72443 MG Oral Capsule 0.25 mcg CALCITRIOL 02/12/2020 [...] EVERY DAY SOLD: 04/26/2020 [facility] Calcitriol 0.67425 MG Oral Capsule 0.25 mcg CALCITRIOL 01/24/2020 [...] 3 days, Max Daily Dose: 4 tablets [facility] 5-325 mg 01/21/2020 12:00:00 AM EDT tablet [...] or Vomiting for up to 7 days [facility] Allopurinol 300 MG Oral Tablet Allopurinol 300 MG Oral Tablet (ZYLOPRIM) Allopurinol 300 MG Oral Tablet (ZYLOPRIM) 01/08/2020 12:00:00 AM EDT 300 mg Oral aborted Take 1 tablet by sheela th daily [facility] Prednisone 10 MG Oral Tablet predniSONE 10 MG Oral Tab let (DELTASONE) predniSONE 10 MG Oral Tablet (DELTASONE) 01/08/2020 12:00:00 AM EDT 10 mg Ora l active Take 1 tablet by mouth daily [facility] Magnesium Oxide 400 MG Oral Tablet Magne sium Oxide 400 (241.3 Mg) MG Oral Tablet (MAG-OX) Magnesium Oxide 400 (241.3 Mg) MG Oral Tablet (MAG-OX) 01/07/2020 12:00:00 AM EDT 400 mg Oral active Take 1 tablet by mouth Two Times Daily [facility] Ondansetron 4 MG Oral Tablet Ondansetron HCl 4 MG Oral Tablet (ZOFRAN) Ondansetron HCl 4 MG Oral Tablet (ZOFRAN) 01/07/2020 12:00:00 AM EDT 4 mg Oral aborted Take 1 tablet by mouth every 8 (eight) hours as needed for Nausea for up to 3 days [facility] Simvastatin 20 MG Oral Tablet Simvastatin 20 MG Oral T ablet (ZOCOR) Simvastatin 20 MG Oral Tablet (ZOCOR) 01/07/2020 12:00:00 AM EDT 20 mg Oral aborted Take 1 tablet by mouth nightly [facility] Acetaminophen 325 MG / Hydrocodone Eun trate 5 MG Oral Tablet HYDROcodone- Acetaminophen 5-325 MG Oral Tablet (LORTAB) HYDROcodone-Acetaminophen 5-325 MG Oral Tablet (LORTAB) 01/07/2020 12:00:00 AM EDT 1 {tbl} Oral aborted Take 1 tablet by mouth every 6 (six) hours as needed for Pain for up to 7 days, Max Daily Dose: 4 tablets [facility] pantoprazole 40 MG Delayed Release Oral Tablet Pantoprazole Sodium 40 MG Oral Tablet Delayed Release (PROTONIX) Pantoprazole Sodium 40 MG Oral Tablet De layed Release (PROTONIX) 01/07/2020 12:00:00 AM EDT 40 mg Oral active Take 1 tablet by mouth daily [facility] fentaNYL (SUBLIMAZE) (PF) injection 25 mcg [id number] 01/06/2020 10:57:29 AM EDT 25 ug Intravenous active 25 m cg, Intravenous, Every 4 hours PRN, Severe Pain (Pain Scale Score 7-10), Starting 01/06/20 at 1057, For 3 days [facility] Medication administered onsite Acetaminophen 325 MG / [...] mg from all sources in 24 hours.
[facility] Medication administered onsite NaCl infusion 0.9 % [id number] 01/05/2020 01:15:00 PM EDT Intravenous completed at 75 mL/hr, Intrave nous, Continuous, Starting 01/05/20 at 1315, For 1 day [facility] Medication administered onsite Allopurinol 300 MG Oral Tablet allopurinol (ZYLOPRIM) tablet 300 mg allopurinol (ZYLOPRIM) tablet 300 mg 01/05/2020 09:00:00 AM EDT 300 mg Oral active 300 mg, Oral, Daily Standard, First dos e (after last modification) on 01/05/20 at 0900, For 7 days [facility] Medication administered onsite torsemide 100 MG Oral Tablet torsemide (DEMADEX) table t 100 mg torsemide (DEMADEX) tablet 100 mg 01/05/2020 09:00:00 AM EDT 100 mg Oral active 100 mg, Oral, Daily Standard, First dose on 01/05/20 at 0900, For 30 days [facility] Medication administered onsite Calcitriol 0.61225 MG Oral Capsule calcitRIOL (ROCALTR OL) capsule 0.25 mcg calcitRIOL (ROCALTROL) capsule 0.25 mcg 01/05/2020 09:00:00 AM EDT 0.25 ug Oral active 0.25 mcg, Oral , Daily Standard, First dose on 01/05/20 at 0900, For 30 days [facility] Medication administered onsite Prednisone 5 MG Oral Tablet predniSONE (DELTASONE) tab let 10 mg predniSONE (DELTASONE) tablet 10 mg 01/05/2020 09:00:00 AM EDT 10 mg Oral active 10 mg, Oral, Daily Standard, First dose (after last modification) on 01/05/20 at 0900, For 30 days
Take with food.
[facility] Medication administered onsite Folic Acid 1 MG Oral Tablet folic acid (FOLVITE) table t 1 mg folic acid (FOLVITE) tablet 1 mg 01/05/2020 09:00:00 AM EDT 1 mg Oral active 1 mg, Oral, Daily Standard, First dose on 01/05/20 at 0900, For 30 days [facility] Medication administered onsite Vitamin B6 50 MG Oral Tablet vitamin B-6 (PYRIDOXINE) tablet 100 mg vitamin B-6 (PYRIDOXINE) tablet 100 mg 01/05/2020 09:00:00 AM EDT 100 mg Oral active 100 mg, Oral, Daily Standard, First dos e on 01/05/20 at 0900, For 7 days [facility] Medication administered onsite pantoprazole 40 MG Delayed Release Oral Tablet pantoprazole (PROTONIX) EC tablet 40 mg pantoprazole (PROTONIX) EC tablet 40 mg 01/05/2020 09:00:00 AM E DT 40 mg Oral active 40 mg, Ora l, Daily Standard, First dose on 01/05/20 at 0900, For 30 days
Do not crush or chew
[facility] Medication administered onsite morphine sulfate (PF) injection 2 mg [id number] 01/05/2020 08:57: 24 AM EDT 2 mg Intravenous aborted 2 mg, In travenous, Every 2 hours PRN, Severe Pain (Pain Scale Score 7-10), Starting 01/05/20 at 0857, For 3 days [facility] Medication administered onsite Oxycodone Hydrochloride 5 MG [...] only) require Pain Service consultation and approval.
[facility] Medication administered onsite Acetaminophen 325 MG Oral Tablet acetaminophen (TYLENO L) tablet 650 mg acetaminophen (TYLENOL) tablet 650 mg 01/04/2020 11:10:00 PM EDT 65 0 mg Oral completed 650 mg, Oral, E very 6 hours, First dose (after last modification) on Tue01/04/20 at 2315, For 12 hours
Maximum daily dose of acetaminophen is 3,000 mg from all sources in 24 hours.
[facility] Medication administered onsite Simvastatin 20 MG Oral Tablet simvastatin (ZOCOR) tabl et 20 mg simvastatin (ZOCOR) tablet 20 mg 01/04/2020 10:00:00 PM EDT 20 mg Oral active 20 mg, Oral, Nightly, First dose on Tue01/04/20 at 2200, For 30 days [facility] Medication administered onsite ferrous gluconate 324 MG Oral Tablet Ferrous Gluconate (FERGON) tablet 324 mg Ferrous Gluconate (FERGON) tablet 324 mg 01/04/2020 09:00:00 PM EDT 324 mg Oral active 324 mg, Oral, 2 Times Daily, First dose (after last modification) on Tue01/04/20 at 2100, For 7 days [facility] Medication administered onsite Tacrolimus 1 MG Oral [...] for at least 30 minutes after administration.
[facility] Medication administered onsite fentaNYL (SUBLIMAZE) (PF) injection 50 mcg [id number] 01/04/2020 06:45:00 PM EDT 50 ug Intravenous completed 50 mcg, Intravenous, Once, Tue01/04/20 at 1845, For 1 dose [facility] Medication administered onsite ondansetron (ZOFRAN) injection 4 mg [id number] 01/04/2020 06:36:2 0 PM EDT 4 mg Intravenous completed 4 mg, In travenous, Every 8 hours PRN, Nausea, Vomiting, Starting Tue01/04/20 at 1836, For 1 day [facility] Medication administered onsite Amlodipine 5 MG Oral Tablet amlodipine (NORVASC) table t 10 mg amlodipine (NORVASC) tablet 10 mg 01/04/2020 05:15:00 PM EDT 10 mg Oral active 10 mg, Oral, Daily Standard, First dose (after last modification) on Tue01/04/20 at 1715, For 7 doses [facility] Medication administered onsite torsemide 20 MG Oral Tablet torsemide (DEMADEX) tablet 40 mg torsemide (DEMADEX) tablet 40 mg 01/04/2020 05:15:00 PM EDT 40 mg Oral activ e 40 mg, Oral, Every evening, First dose (after last modification) on Tue01/04/20 at 1715, For 30 days [facility] Medication administered onsite heparin (porcine) 5000 UNIT/ML injection 5,000 Units [id number] 01/04/2020 05:00:00 PM EDT 5000 U Subcutaneous active 5,000 Units, Subcutaneous, Three Times Daily Standard, First dose on Tue01/04/20 at 1700, For 30 days [facility] Medication administered onsite Oxycodone Hydrochloride 5 MG Oral Tablet oxyCODONE (ROXICODONE) immediate release tablet 5 mg oxyCODONE (ROXICODONE) immediate release tablet 5 mg 01/04/2020 05:00:00 PM EDT 5 mg Oral completed 5 mg, Oral, Once, Tue01/04/20 at 1700, For 1 dose
Oxycodone immediate release is limited to 10 mg per dose. Higher doses ([facility] only) require Pain Service consultation and approval.
[facility] Medication administered onsite Acetaminophen 325 MG Oral [...] mg from all sources in 24 hours.
[facility] Medication administered onsite NaCl infusion 0.9 % [id number] 01/04/2020 01:15:00 PM EDT Intravenous completed at 75 mL/hr, Intrave nous, Continuous, Starting Tue01/04/20 at 1315, For 1 day [facility] Medication administered onsite ondansetron (ZOFRAN) injection 4 mg [id number] 01/04/2020 10:30:0 0 AM EDT 4 mg Given by IV completed 4 mg, Gi flavia by IV, Once, Tue01/04/20 at 1030, For 1 dose [facility] Medication administered onsite Oxycodone Hydrochloride 5 MG Oral Tablet oxyCODONE (ROXICODONE) immediate release tablet 5 mg oxyCODONE (ROXICODONE) immediate release tablet 5 mg 01/04/2020 10:00:00 AM EDT 5 mg Oral completed 5 mg, Oral, Once, Tue01/04/20 at 1000, For 1 dose
Oxycodone immediate release is limited to 10 mg per dose. Higher doses ([facility] only) require Pain Service consultation and approval.
[facility] Medication administered onsite Acetaminophen 10 MG/ML Injectable Sol[facility] on acetaminophen (OFIRMEV) infusion 1,000 mg acetaminophen (OFIRMEV) infusion 1,000 mg 01/04/2020 10:00:00 AM EDT 1000 mg Intravenous completed 1,000 mg , Intravenous, Administer over 15 Minutes, Once, Tue01/04/20 at 1000, For 1 dose
Maximum dose 3 gm daily from all sources
[facility] Medication administered onsite Piperacillin 3000 MG / tazobactam 375 MG Injection piperacillin-tazobactam (ZOSYN) IVPB 3.375 g (premix) piperacillin-tazobactam (ZOSYN) IVPB 3.3 75 g (premix) 01/04/2020 09:15:00 AM EDT 3.375 g Intravenous com pleted 3.375 g, Intravenous, Administer over 0.5 Hours, Once, Tue01/04/20 at 0915, For 1 dose [facility] Medication administered onsite 10 mg 01/03/2020 12:00:00 [...] Hydrocodone Bitartrate 5 MG Oral Tabl et [[place]] [place] 12/20/2019 12:00:00 AM EDT active [facility] ([facility], ) 5 mg 12/20/2019 12:00:00 AM [...] 12/14/2019 12:00:00 AM EST ORAL completed [facility] ([facility], ) 300-30 mg 12/14/2019 12:00:00 AM EST [...] Prednisone 10/15/2019 12:00:00 AM EST active [facility] ([facility], ) Amoxicillin 500 MG / Clavulanate 125 MG Oral Tablet [Augment in] Augmentin 10/15/2019 12:00:00 AM EST completed [facility] ([facility], ) Prednisone 20 MG Oral Tablet Prednisone 10/15/2019 12:00:00 AM EST completed [facility] ([facility], ) 20 mg 10/15/2019 12:00:00 AM EST tablet 7 TAKE ONE TABLET BY MOUTH EVERY DAY TAKE ONE TABLET BY MOUTH EVERY DAY SOLD: 10/15/2019 [facility] Calcitriol 0.51867 MG Oral Capsule 0.25 mcg CALCITRIOL 09/26/2019 12:00:00 AM EST capsule 30 TAKE ONE CAPSULE BY MOUTH EV NORA DAY TAKE ONE CAPSULE BY MOUTH EVERY DAY SOLD: 09/30/2019 [facility] Calcitriol 0.42932 MG Oral Capsule 0.25 mcg CALCITRIOL 09/26/2019 12:00:00 AM EST capsule 30 TAKE ONE CAPSULE BY MOUTH EV NORA DAY TAKE ONE CAPSULE BY MOUTH EVERY DAY SOLD: 12/28/2019 [facility] Calcitriol 0.59694 MG Oral Capsule 0.25 mcg CALCITRIOL 09/26/2019 12:00:00 AM EST capsule 30 TAKE ONE CAPSULE BY MOUTH EV NORA DAY TAKE ONE CAPSULE BY MOUTH EVERY DAY SOLD: 11/30/2019 [facility] Calcitriol 0.21962 MG Oral Capsule 0.25 mcg CALCITRIOL 09/26/2019 [...] EVERY DAY SOLD: 09/30/2019 [facility] Calcitriol 0.12938 MG Oral Capsule Calcitriol 0.25 MCG Oral Capsule (ROCALTROL) Calcitriol 0.25 MCG Oral Capsule (ROCALTROL) 0.25 ug Oral aborted Take 0.25 mcg by mouth daily [facility] Simvastatin 80 MG Oral Tablet Simvastatin 80 MG Oral T ablet (ZOCOR) Simvastatin 80 MG Oral Tablet (ZOCOR) 80 mg Oral aborted Take 80 mg by mouth nightly [facility] torsemide 100 MG Oral Tablet Torsemide 100 MG Oral Tab let (DEMADEX) Torsemide 100 MG Oral Tablet (DEMADEX) 100 mg Oral aborted Take 100 mg by mouth Two Times Daily [facility] torsemide 20 MG Oral Tablet Torsemide 20 MG Oral Table t (DEMADEX) Torsemide 20 MG Oral Tablet (DEMADEX) 40 mg Oral aborted Take 40 mg by mouth every evening [facility] Magnesium Oxide 400 MG Oral Tablet Magne sium Oxide 400 (241.3 Mg) MG Oral Tablet (MAG-OX) Magnesium Oxide 400 (241.3 Mg) MG Oral Tablet (MAG-OX) 1200 mg Oral aborted Take 1,200 mg by sheela th Two Times Daily [facility] Minoxidil 2.5 MG Oral Tablet Minoxidil 2.5 MG Oral Tab let (LONITEN) Minoxidil 2.5 MG Oral Tablet (LONITEN) 2.5 mg Oral aborted Take 2.5 mg by mouth Two Times Daily [facility] POTASSIUM CITRATE ER PO 15 meq Oral aborted Take 15 mEq by mouth Two Times Daily [facility] ezetimibe 10 MG / Simvastatin 40 MG Oral Tablet ezetimibe-simvastatin (VYTORIN) 10-40 MG per tablet ezetimibe-simvastatin (VYTORIN) 10-40 MG per tablet 1 {tbl} Oral aborted Take 1 tablet by mouth n ightly. [facility] pantoprazole 40 MG Delayed Release Oral Tablet pantoprazole (PROTONIX) 40 MG tablet pantoprazole (PROTONIX) 40 MG tablet 40 mg Oral aborted Take 40 mg by mouth daily. [facility] Allopurinol 300 MG Oral Tablet allopurinol (ZYLOPRIM) 300 MG tablet allopurinol (ZYLOPRIM) 300 MG tablet 300 mg Oral aborted Take 300 mg by mouth Two Times Daily [facility] Metoprolol Tartrate 25 MG Oral Tablet metoprolol (LOPR ESSOR) 25 MG tablet metoprolol (LOPRESSOR) 25 MG tablet 25 mg Oral ab orted Take 25 mg by mouth 2 (two) times daily. [facility] Aspirin 81 MG Oral Tablet aspirin 81 MG tablet aspirin 81 MG tablet 81 mg Oral aborted Take 81 mg by mouth daily. [facility] Tacrolimus 1 MG Oral Capsule tacrolimus (PROGRAF) 1 MG capsule tacrolimus (PROGRAF) 1 MG capsule 1 mg Oral aborted Take 1 mg by mouth Two Times Daily. [facility] Mycophenolic Acid 360 MG Delayed Release Oral Tablet mycophenolate (MYFORTIC) 360 MG TBEC mycophenolate (MYFORTIC) 360 MG TBEC 360 mg Oral aborted Take 360 mg by mouth 2 (two) times daily. [facility] Prednisone 5 MG Oral Tablet predniSONE (DELTASONE) 5 M G tablet predniSONE (DELTASONE) 5 MG tablet 5 mg Oral aborted Take 5 mg by mouth daily. [facility] Lisinopril 30 MG Oral Tablet lisinopril (PRINIVIL,ZEST RIL) 30 MG tablet lisinopril (PRINIVIL,ZESTRIL) 30 MG tablet 20 mg Oral aborted Take 20 mg by mouth Two Times Daily. [facility] Docusate Sodium 50 MG / sennosides, SKILLED NURSING 8.6 MG Oral Tablet Sennosides-Docusate Sodium 8.6-50 MG Oral Tablet (Senexon-S) Sennosides-Docusate Sodium 8.6-50 MG Oral Tablet (Senexon-S) 1 {tbl} Oral aborted Take 1 tablet by mouth Two Times Daily [facility] Tacrolimus 1 MG Oral Capsule Tacrolimus 1 MG Oral Caps ule (PROGRAF) Tacrolimus 1 MG Oral Capsule (PROGRAF) 1 mg Oral aborted Take 1 mg by mouth Two Times Daily [facility] Mycophenolic Acid 360 MG Delayed Release Oral Tablet Mycophenolate Sodium 360 MG Oral Tablet Delayed Release (Myfortic) Mycophenolate Sodium 360 MG Oral Tablet Delayed Release (Myfortic) 360 mg Oral aborted Take 360 mg by mouth Two Times Daily [facility] Citric Acid 66.8 MG/ML / potassium citra te 220 MG/ML Oral Solution Potassium Citrate-Citric Acid 1100-334 MG/5ML Oral Solution (POLYCITRA-K) Potassium Citrate-Citric Acid 1100-334 MG/5ML Oral Solution (POLYCITRA-K) 15 meq Oral aborted Take 15 mEq by mouth Two Times Daily [facility] Insurance Providers Payer name Policy type / Coverage type Policy ID Covered alliance party ID Covered alliance party's relationship to balderas Policy [place] Plan Information MEDICARE [id number] [id number] [facility] [id number] MEDICARE A [id number] Self [id number] V21 UMR U [id number] Spouse [id number] MEDICARE C [id number] S [id number] [id number] UMR O [id number] S [id number] [facility] [[email or web address] MEDICARE DIVISION [id number] S [id number] MEDICARE - [place] [id number] S [id number] UMR [id number] SPO [id number] MEDICARE A [id number] Self [id number] V21 SELF PAY MEDICARE [id number] SP [id number] UMR [id number] SP [id number] UMR 2 [id number] 1 [id number] MEDIC[place] OF [place] ([facility] [[email or web address] - [id number] 1 [id number] MEDICARE [id number] SP [id number] T SELF PAY UMR [id number] SP [id number] MEDICARE A [id number] Self [id number] [id number] UMR [id number] SP [id number] SELF PAY UMR [id number] SP [id number] UMR [id number] 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, 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 [employer] [id number] SPO [id number] UMR [facility] [id number] WI2 [id number] [employer] [id number] WI2 [id number] [employer] (pr) Commercial [id number] Family Dependent 8 [id number] [employer] (pr) Commercial [id number] Family Dependent 8 [id number] [employer] (pr) Commercial [id number] Family Dependent 8 [id number] [employer] (pr) Commercial [id number] Family Dependent 8 [id number] [employer] PPO O [id number] P [id number] [employer] [id number] S [id number] [employer] [id number] WI2 [id number] [employer] U [id number] Spouse [id number] [employer] U [id number] Self [id number] [employer] [id number] WI2 [id number] [employer] U [id number] Spouse [id number] [employer] [id number] SP [id number] [employer] [id number] SP [id number] [place]ICARE - [place] [facility] [id number] S [id number] [employer] O [id number] U [id number] Problems, Conditions, and Diagnoses Code Display Name Description Problem Type Effective Dates Data Source(s) Z79.899 Other technician terminal and repeater (current) drug therapy [facility] ([facility] drug therapy Diagnosis 07/31/2020 09:07:46 AM EDT [facility] R93.7 Abnormal findings on diagnos tic imaging of other parts of musculoskeletal system ABNORMAL FINDINGS ON DIAGNOSTIC IMAGING OF PRT MS Diagnosis 07/08/2020 09:00:00 AM [facility] K80.20 Calculus of gallbladder without cholecys titis without obstruction CALCULUS OF GALLBLADDER W/O CHOLECYSTITIS W/O OBST Diagnosis 09:00:00 AM [facility] N28.1 Cyst of kidney, acquired CYST OF KIDNEY, ACQUIRED Diag nosis 07/08/2020 09:00:00 AM [facility] N26.9 Renal sclerosis, unspecified RENAL SCLEROSIS, UNSPECIF IED Diagnosis 07/08/2020 09:00:00 AM [facility] 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 Diagnosis 07/08/2020 09:00:00 AM [facility] R10.84 Generalized abdominal pain GENERALIZED ABDOMINAL PAIN Diagnosis 07/08/2020 09:00:00 AM [facility] R11.10 Vomiting, unspecified VOMITING, UNSPECIFIED Diagnosis 07/08/2020 09:00:00 AM [facility] R94.6 Abnormal results of thyroid function carol dies R94.6 - Abnormal results of thyroid function studies Diagnosis 07/04/2020 02:00:00 PM EDT [facility] Z51.81 Encounter for therapeutic drug level mon itoring Encounter for therapeutic drug level monitoring Diagnosis 07/03/2020 08:51:21 AM [facility] E05.90 Thyrotoxicosis, unspecified without thyr otoxic crisis or storm Thyrotoxicosis, unspecified without thyrotoxic crisis or storm Diagnosis 07/03/2020 08:51:21 AM [facility] C79.51 Secondary malignant neoplasm of bone C79 .51 - Secondary malignant neoplasm of bone Diagnosis 04/10/2020 08:18:00 PM EDT [email or web address] L80 Vitiligo Vitiligo Diagnosis 04/10/2020 09:27:58 AM [facility] D62 Acute posthemorrhagic anemia Acute posthemorrhagic ane terrence Diagnosis 03/07/2020 11:46:04 AM [facility] R04.0 Epistaxis Epistaxis Diagnosis 03/06/2020 11:39:00 PM [facility] Z85.820 Personal history of malignant melanoma o f skin Personal history of malignant melanoma of skin Diagnosis 03/06/2020 06:31:15 PM EDT [facility] Z87.891 Personal history of nicotine dependence Personal history of nicotine dependence Diagnosis 03/06/2020 06:31:15 PM [facility] Z94.0 Kidney transplant status Kidney transplant status Diag nosis 03/06/2020 06:31:15 PM [facility] N18.6 End stage renal disease End stage renal disease Diagno sis 03/06/2020 06:31:15 PM [facility] I12.0 Hypertensive chronic kidney disease with stage 5 chronic kidney disease or end stage renal disease Hypertensive chronic kidney disease with stage 5 chronic kidney disease or end stage renal disease Diagnosis 02/08 06:31:15 PM [facility] 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 Diagnosis 03/06/2020 06:31:15 PM [facility] R60.0 Localized edema Localized edema Diagnosis 03/06/2020 06:3 1:15 PM [facility] D49.9 Neoplasm of unspecified behavior of unsp ecified site Neoplasm of unspecified behavior of unspecified site Diagnosis 03/06/2020 06:31:15 PM [facility] anemia, coughing out blood, Rt nare rhinorocket came off, Left nasalport coming off anemia, coughing out blood, Rt nare rhin orocket came off, Left nasalport coming off Diagnosis 03/06/2020 06:31:15 PM [facility] D63.8 Anemia in other chronic diseases classif ied elsewhere Anemia in other chronic diseases classified elsewhere Diagnosis 03/05/2020 02:26:39 PM [facility] C79.51 Secondary malignant neoplasm of bone Sec ondary malignant neoplasm of bone Diagnosis 03/03/2020 01:38:34 PM [facility] C43.9 Malignant melanoma of skin, unspecified Malignant melanoma of skin, unspecified Diagnosis 03/03/2020 12:15:40 PM [facility] 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 Jason amaya [facility], followed by Dr. 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, u nspecified C31.9 - Malignant neoplasm of accessory sinus, unspecified Diagnosis 02/07/2020 01:03:00 PM [facility] C43.10 Malignant melanoma of unspecified eyelid , including canthus Malignant melanoma of unspecified eyelid, including canthus Diagnosis 12/09 10:32:56 AM [facility] h/o melanoma right sinus to right orbita l increasing size h/o melanoma right sinus to right orbital increasing size Diagnosis 01/04/2020 08:14:52 A M [facility] J32.0 Chronic maxillary sinusitis CHRONIC MAXILLARY SINUSITI S Diagnosis 12/21/2019 12:50:00 PM [facility] 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 Diagnosis 12/21/2019 12:50:00 PM [facility] Z94.0 Kidney transplant status KIDNEY TRANSPLANT STATUS Diag nosis 10/11/2019 01:53:00 PM [facility] Z87.448 Personal history of other diseases of ur inary system PERSONAL HISTORY OF OTHER DISEASES OF URINARY SYST Diagnosis 10/11/2019 01:53:00 PM [facility] Z85.46 Personal history of malignant neoplasm o f prostate PERSONAL HISTORY OF MALIGNANT NEOPLASM OF PROSTATE Diagnosis 10/11/2019 01:53:00 PM [facility] F17.210 Nicotine dependence, cigarettes, uncompl icated NICOTINE DEPENDENCE, CIGARETTES, UNCOMPLICATED Diagnosis 10/11/2019 01:53:00 PM [facility] I10 Essential (primary) hypertension ESSENTIAL (PRIMARY) H YPERTENSION Diagnosis 10/11/2019 01:53:00 PM [facility] J34.1 Cyst and mucocele of nose and nasal sinu s CYST AND MUCOCELE OF NOSE AND NASAL SINUS Diagnosis 10/11/2019 01:53:00 PM [facility] R04.0 Epistaxis EPISTAXIS Diagnosis 10/11/2019 01:53:00 PM [facility] R09.81 Nasal congestion NASAL CONGESTION Diagnosis 10/11/2019 01 :53:00 PM [facility] Surgeries/Procedures Procedure Description Date Indications Data Source(s) Layer Closure Wound 7.6-12.5CM Scalp/Axillae/Trunk/Extremiti es 08/12/2020 12:00:00 AM EST [facility] ([facility] REPAIR BLOOD VESSEL DIRECT UPPER EXTREMITY 08/12/2020 12:00:00 AM EST [facility] ([facility]) BLOOD COUNT AUTOMATED DIFFERENTIAL WBC COUNT DIFFERENTIAL WITH WBC Routine 03/12/2020 1:53 AM EDT 03/12/2020 05:53:00 AM [facility] BLOOD COUNT COMPLETE AUTOMATED CBC Timed 03/12/2020 1:53 A M EDT 03/12/2020 05:53:00 AM [facility] THYROID STIMULATING HORMONE TSH TSH Routine 03/12/2020 1:53 AM EDT 03/12/2020 05:53:00 AM [facility] THYROXINE FREE T4, FREE Routine 03/12/2020 1:53 AM EDT 03/12/2020 05:53:00 AM [facility] HEPATIC FUNCTION PANEL HEPATIC FUNCTION PANEL A Routine 03/12/2020 1:53 AM EDT 03/12/2020 05:53:00 AM EDT [facility] BASIC METABOLIC PANEL CALCIUM TOTAL BASIC METABOLIC PANEL Routi ne 03/12/2020 1:53 AM EDT 03/12/2020 05:53:00 AM [facility] BLOOD COUNT COMPLETE AUTOMATED CBC Timed 03/11/2020 12:16 P M EDT 03/11/2020 04:16:00 PM [facility] BLOOD COUNT COMPLETE AUTOMATED CBC Timed 03/11/2020 12:55 A M EDT 03/11/2020 04:55:00 AM [facility] BASIC METABOLIC PANEL CALCIUM TOTAL BASIC METABOLIC PANEL Routi ne 03/11/2020 12:55 AM EDT 03/11/2020 04:55:00 AM EDT [facility] BLOOD COUNT COMPLETE AUTO&AUTO DIFRNTL WBC COUNT CBC AND DIFFER ENTIAL Routine 03/10/2020 12:37 PM EDT 03/10/2020 04:37:00 PM [facility] MRI ORBIT FACE &/NECK W/O CONTRAST MR FACE ONLY WITHOUT CONTRAS T [id number] Routine 03/10/2020 11:31 AM EDT Tumor 03/10/2020 03:31:23 PM EDT Tumor [facility] Tumor TRANSFUSE RBC (ONCE) TRANSFUSE RBC (ONCE) Routine 03/10/2020 10:24 AM EDT 03/10/2020 02:24:43 PM [facility] BLOOD COUNT COMPLETE AUTOMATED CBC Timed 03/10/2020 4:57 A M EDT 03/10/2020 08:57:00 AM [facility] BASIC METABOLIC PANEL CALCIUM TOTAL BASIC METABOLIC PANEL Routi ne 03/10/2020 4:57 AM EDT 03/10/2020 08:57:00 AM EDT [facility] BLOOD COUNT COMPLETE AUTOMATED CBC Timed 03/09/2020 6:31 P M EDT 03/09/2020 10:31:00 PM [facility] PLATELET AGGREGATION IN VITRO EACH AGENT [id number] Routin e 03/09/2020 2:14 PM EDT 03/09/2020 06:14:00 PM EDT [facility] CROSSMATCH, ADDITIONAL CROSSMATCH, ADDITIONAL Routine 020 2:14 PM EDT 03/09/2020 06:14:00 PM EDT [facility] BLOOD COUNT COMPLETE AUTOMATED CBC Routine 03/09/2020 2:14 P M EDT 03/09/2020 06:14:00 PM [facility] TRANSFUSE RBC (ONCE) TRANSFUSE RBC (ONCE) Routine 03/09/2020 11:18 AM EDT 03/09/2020 03:18:18 PM [facility] BLOOD COUNT COMPLETE AUTOMATED CBC Timed 03/09/2020 3:47 A M EDT 03/09/2020 07:47:00 AM [facility] BASIC METABOLIC PANEL CALCIUM TOTAL BASIC METABOLIC PANEL Routi ne 03/09/2020 3:47 AM EDT 03/09/2020 07:47:00 AM EDT [facility] BLOOD COUNT COMPLETE AUTO&AUTO DIFRNTL WBC COUNT CBC AND DIFFER ENTIAL Routine 03/08/2020 4:52 PM EDT 03/08/2020 08:52:00 PM [facility] TRANSFUSE RBC (ONCE) TRANSFUSE RBC (ONCE) Routine 03/08/2020 2:38 PM EDT 03/08/2020 06:38:05 PM [facility] ECHO TTHRC R-T 2D W/WOM-MODE COMPL SPEC&COLR DOP ECHOCARDIO GRAM 2D COMPLETE Routine 03/08/2020 8:49 AM EDT 03/08/2020 12:49:04 PM [facility] BLOOD COUNT COMPLETE AUTOMATED CBC STAT 03/08/2020 7:49 A M EDT 03/08/2020 11:49:00 AM [facility] TROPONIN QUANTITATIVE TROPONIN T Routine 03/08/2020 7:49 AM EDT 03/08/2020 11:49:00 AM [facility] BASIC METABOLIC PANEL CALCIUM TOTAL BASIC METABOLIC PANEL Routi ne 03/08/2020 7:49 AM EDT 03/08/2020 11:49:00 AM EDT [facility] BLOOD COUNT COMPLETE AUTOMATED CBC Timed 03/08/2020 6:17 A M EDT 03/08/2020 10:17:00 AM [facility] TRANSFUSE RBC (ONCE) TRANSFUSE RBC (ONCE) Routine 03/08/2020 5:40 AM EDT 03/08/2020 09:40:38 AM [facility] BLOOD COUNT COMPLETE AUTO&AUTO DIFRNTL WBC COUNT CBC AND DIFFER ENTIAL Routine 03/07/2020 11:11 PM EDT 03/08/2020 03:11:00 AM [facility] TROPONIN QUANTITATIVE TROPONIN T Routine 03/07/2020 11:11 PM EDT 03/08/2020 03:11:00 AM [facility] TRANSFUSE RBC (ONCE) TRANSFUSE RBC (ONCE) Routine 03/07/2020 10:39 PM EDT 03/08/2020 02:39:23 AM [facility] EKG 12-LEAD - CMAXX REPORT EKG 12-LEAD - CMAXX REPORT 03/07/2020 9:55 PM EDT 03/08/2020 01:55:47 AM EDT [facility] EKG 12-LEAD - CMAXX REPORT EKG 12-LEAD - CMAXX REPORT 03/07/2020 9:55 PM EDT 03/08/2020 01:55:47 AM EDT [facility] EKG 12-LEAD - CMAXX REPORT EKG 12-LEAD - CMAXX REPORT 03/07/2020 9:53 PM EDT 03/08/2020 01:53:58 AM EDT [facility] EKG 12-LEAD EKG 12-LEAD Routine 03/07/2020 9:53 PM EDT 03/08[facility]2020 [facility] [id number] XR CHEST FRONTAL ONLY [id number] CODE 03/07/2020 9:45 PM EDT 03/08/2020 01:45:00 AM EDT [facility] BLOOD GASES ANY COMBINATION PH PCO2 PO2 CO2 HCO3 BLOOD GAS, ART ERIAL STAT 03/07/2020 9:44 PM EDT 03/08/2020 01:44:00 AM [facility] XR CHEST FRONTAL ONLY [id number] XR CHEST FRONTAL ONLY [id number] STAT 03/07/2020 8:06 PM EDT 03/08/2020 12:06:37 AM EDT [facility] CONFIRMATORY TYPE CONFIRMATORY TYPE Routine 03/07/2020 3:37 PM EDT 03/07/2020 07:37:00 PM [facility] BLOOD COUNT COMPLETE AUTOMATED CBC Routine 03/07/2020 3:37 P M EDT 03/07/2020 07:37:00 PM [facility] TRANSFUSE RBC (ONCE) TRANSFUSE RBC (ONCE) Routine 03/07/2020 2:50 PM EDT 03/07/2020 06:50:14 PM [facility] XR CHEST FRONTAL ONLY 11425 XR CHEST FRONTAL ONLY [id number] Routine 03/07/2020 1:03 PM EDT 03/07/2020 05:03:00 PM EDT [facility] BLOOD TYPING ABO TYPE AND CROSSMATCH Routine 03/07/2020 8:52 AM ED T 03/07/2020 12:52:00 PM [facility] NATRIURETIC PEPTIDE PROBNP Routine 03/07/2020 6:16 AM EDT 03/07/2020 10:16:00 AM [facility] BLOOD COUNT COMPLETE AUTO&AUTO DIFRNTL WBC COUNT CBC AND DIFFER ENTIAL Routine 03/07/2020 6:16 AM EDT 03/07/2020 10:16:00 AM [facility] BASIC METABOLIC PANEL CALCIUM TOTAL BASIC METABOLIC PANEL Routi ne 03/07/2020 6:16 AM EDT 03/07/2020 10:16:00 AM EDT [facility] PROTHROMBIN TIME PROTIME INR Routine 03/05/2020 1:37 PM EDT 03/05/2020 05:37:00 PM [facility] BLOOD COUNT COMPLETE AUTO&AUTO DIFRNTL WBC COUNT CBC AND DIFFER ENTIAL Routine 03/05/2020 1:37 PM EDT 03/05/2020 05:37:00 PM [facility] POCT GLUCOSE, DOCKED POCT GLUCOSE, DOCKED Routine 03/05/2020 12:18 PM EDT 03/05/2020 04:18:00 PM [facility] POCT GLUCOSE, DOCKED POCT GLUCOSE, DOCKED Routine 03/05/2020 8:16 AM EDT 03/05/2020 12:16:00 PM [facility] BLOOD COUNT COMPLETE AUTO&AUTO DIFRNTL WBC COUNT CBC AND DIFFER ENTIAL Routine 03/05/2020 4:02 AM EDT 03/05/2020 08:02:00 AM [facility] BASIC METABOLIC PANEL CALCIUM TOTAL BASIC METABOLIC PANEL Routi ne 03/05/2020 4:02 AM EDT 03/05/2020 08:02:00 AM EDT [facility] GLUCOSE QUANTITATIVE BLOOD XCPT REAGENT STRIP POCT GLUCOSE, DOC KED Routine 03/04/2020 9:22 PM EDT 03/05/2020 01:22:00 AM [facility] GLUCOSE QUANTITATIVE BLOOD XCPT REAGENT STRIP POCT GLUCOSE, DOC KED Routine 03/04/2020 5:34 PM EDT 03/04/2020 09:34:00 PM [facility] BONE &/JOINT IMAGING WHOLE BODY NM BONE SCAN IMAGING WHOLE BODY [id number] Routine 03/04/2020 3:48 PM EDT 03/04/2020 07:48:45 PM [facility] US TRNSPLNT KIDNEY REAL TIME W/IMAGE DOCMTN US RENAL TRANSPLANT [id number] Routine 03/04/2020 3:19 PM EDT 03/04/2020 07:19:45 PM [facility] RADIOLOGY REPORT RADIOLOGY REPORT 03/04/2020 1:04 PM EDT 03/04/2020 05:04:29 PM [facility] GLUCOSE QUANTITATIVE BLOOD XCPT REAGENT STRIP POCT GLUCOSE, DOC FLEX Routine 03/04/2020 12:16 PM EDT 03/04/2020 04:16:00 PM [facility] GLUCOSE QUANTITATIVE BLOOD XCPT REAGENT STRIP POCT GLUCOSE, DOC FLEX Routine 03/04/2020 8:17 AM EDT 03/04/2020 12:17:00 PM [facility] BASIC METABOLIC PANEL CALCIUM TOTAL BASIC METABOLIC PANEL Routi ne 03/04/2020 1:35 AM EDT 03/04/2020 05:35:00 AM EDT [facility] GLUCOSE QUANTITATIVE BLOOD XCPT REAGENT STRIP POCT GLUCOSE, DOC FLEX Routine 03/03/2020 10:51 PM EDT 03/04/2020 02:51:00 AM [facility] GLUCOSE QUANTITATIVE BLOOD XCPT REAGENT STRIP POCT GLUCOSE, DOC FLEX Routine 03/03/2020 5:29 PM EDT 03/03/2020 09:29:00 PM [facility] VASC LAB US HEMODIALYSIS ACCESS VASC LAB US HEMODIALYSIS ACCESS Routine 03/03/2020 12:55 PM EDT 03/03/2020 04:55:00 PM [facility] GLUCOSE QUANTITATIVE BLOOD XCPT REAGENT STRIP POCT GLUCOSE, DOC FLEX Routine 03/03/2020 12:22 PM EDT 03/03/2020 04:22:00 PM [facility] GLUCOSE QUANTITATIVE BLOOD XCPT REAGENT STRIP POCT GLUCOSE, DOC FLEX Routine 03/03/2020 8:09 AM EDT 03/03/2020 12:09:00 PM [facility] BLOOD COUNT COMPLETE AUTO&AUTO DIFRNTL WBC COUNT CBC AND DIFFER ENTIAL Routine 03/03/2020 12:14 AM EDT 03/03/2020 04:14:00 AM [facility] CREATINE KINASE TOTAL CK Routine 03/03/2020 12:14 AM EDT 03/03/2020 04:14:00 AM [facility] BASIC METABOLIC PANEL CALCIUM TOTAL BASIC METABOLIC PANEL Routi ne 03/03/2020 12:14 AM EDT 03/03/2020 04:14:00 AM [facility] GLUCOSE QUANTITATIVE BLOOD XCPT REAGENT STRIP POCT GLUCOSE, DOC FLEX Routine 03/02/2020 5:30 PM EDT 03/02/2020 09:30:00 PM [facility] GLUCOSE QUANTITATIVE BLOOD XCPT REAGENT STRIP POCT GLUCOSE, DOC KED Routine 03/02/2020 12:36 PM EDT 03/02/2020 04:36:00 PM [facility]ASC LAB US DOPPLER UPPER EXTREMITY UNILATERAL VENOUS LTD [id number] [facility] US DOPPLER UPPER EXTREMITY UNILATERAL VENOUS LTD 40613 Routine 9:54 AM EDT S/P kidney transplant 03/02/2020 01:54:00 PM EDT S/P kidney vargas [facility] S/P kidney transplant GLUCOSE QUANTITATIVE BLOOD XCPT REAGENT STRIP POCT GLUCOSE, DOC KED Routine 03/02/2020 8:26 AM EDT 03/02/2020 12:26:00 PM [facility] IRON TOTAL FE BINDING CAPACITY Routine 03/02/2020 1:00 AM EDT 03/02/2020 05:00:00 AM [facility] BLOOD COUNT COMPLETE AUTO&AUTO DIFRNTL WBC COUNT CBC AND DIFFER ENTIAL Routine 03/02/2020 1:00 AM EDT 03/02/2020 05:00:00 AM [facility] FERRITIN FERRITIN LEVEL Routine 03/02/2020 1:00 AM EDT 03/02/2020 05:00:00 AM [facility] BASIC METABOLIC PANEL CALCIUM TOTAL BASIC METABOLIC PANEL Routi ne 03/02/2020 1:00 AM EDT 03/02/2020 05:00:00 AM EDT [facility] GLUCOSE QUANTITATIVE BLOOD XCPT REAGENT STRIP POCT GLUCOSE, DOC KED Routine 03/01/2020 9:37 PM EDT 03/02/2020 01:37:00 AM [facility] GLUCOSE QUANTITATIVE BLOOD XCPT REAGENT STRIP POCT GLUCOSE, DOC KED Routine 03/01/2020 5:20 PM EDT 03/01/2020 09:20:00 PM [facility] PHOSPHORUS INORGANIC PHOSPHORUS LEVEL Routine 03/01/2020 3:08 PM E DT 03/01/2020 07:08:00 PM [facility] MAGNESIUM MAGNESIUM LEVEL Routine 03/01/2020 3:08 PM EDT 03/01/2020 07:08:00 PM [facility] COMPREHENSIVE METABOLIC PANEL COMPREHENSIVE METABOLIC PANEL Rou indra 03/01/2020 3:08 PM EDT 03/01/2020 07:08:00 PM EDT [facility] GLUCOSE QUANTITATIVE BLOOD XCPT REAGENT STRIP POCT GLUCOSE, DOC KED Routine 03/01/2020 12:15 PM EDT 03/01/2020 04:15:00 PM [facility] XR CHEST FRONTAL ONLY 22449 XR CHEST FRONTAL ONLY [id number] Routine 03/01/2020 12:05 PM EDT 03/01/2020 04:05:00 PM EDT [facility] DRUG SCREEN QUALITATIVE TACROLIMUS TACROLIMUS TROUGH Routine 03/01/2020 8:51 AM EDT 03/01/2020 12:51:00 PM EDT [facility] GLUCOSE QUANTITATIVE BLOOD XCPT REAGENT STRIP POCT GLUCOSE, DOC KED Routine 03/01/2020 8:25 AM EDT 03/01/2020 12:25:00 PM [facility] BLOOD COUNT COMPLETE AUTO&AUTO DIFRNTL WBC COUNT CBC AND DIFFER ENTIAL Routine 03/01/2020 4:30 AM EDT 03/01/2020 08:30:00 AM [facility] PHOSPHORUS INORGANIC PHOSPHORUS LEVEL Routine 03/01/2020 4:30 AM E DT 03/01/2020 08:30:00 AM [facility] MAGNESIUM MAGNESIUM LEVEL Routine 03/01/2020 4:30 AM EDT 03/01/2020 08:30:00 AM [facility] BASIC METABOLIC PANEL CALCIUM TOTAL BASIC METABOLIC PANEL Routi ne 03/01/2020 4:30 AM EDT 03/01/2020 08:30:00 AM EDT [facility] BLOOD COUNT COMPLETE AUTO&AUTO DIFRNTL WBC COUNT CBC AND DIFFER ENTIAL Routine 01/07/2020 1:15 AM EDT 01/07/2020 05:15:00 AM [facility] BASIC METABOLIC PANEL CALCIUM TOTAL BASIC METABOLIC PANEL Routi ne 01/07/2020 1:15 AM EDT 01/07/2020 05:15:00 AM EDT [facility] BLOOD COUNT COMPLETE AUTOMATED CBC AND DIFFERENTIAL Routine 01/06/2020 1:13 AM EDT 01/06/2020 05:13:00 AM EDT [facility] BASIC METABOLIC PANEL CALCIUM TOTAL BASIC METABOLIC PANEL Routi ne 01/06/2020 1:13 AM EDT 01/06/2020 05:13:00 AM EDT [facility] BLOOD COUNT COMPLETE AUTOMATED CBC AND DIFFERENTIAL Routine 01/05/2020 3:37 AM EDT 01/05/2020 07:37:00 AM EDT [facility] BASIC METABOLIC PANEL CALCIUM TOTAL BASIC METABOLIC PANEL Routi ne 01/05/2020 3:37 AM EDT 01/05/2020 07:37:00 AM EDT [facility] URNLS DIP STICK/TABLET REAGENT AUTO MICROSCOPY URINAL YSIS WITH REFLEX URINE CULTURE Routine 01/04/2020 6:32 PM EDT 01/04/2020 10:32 :00 PM EDT [facility] DRUG SCREEN QUALITATIVE TACROLIMUS TACROLIMUS TROUGH Routine 01/04/2020 5:33 PM EDT 01/04/2020 09:33:00 PM EDT [facility] BLOOD COUNT COMPLETE AUTO&AUTO DIFRNTL WBC COUNT CBC AND DIFFER ENTIAL Routine 01/04/2020 5:33 PM EDT 01/04/2020 09:33:00 PM EDT [facility] PHOSPHORUS INORGANIC PHOSPHORUS LEVEL Routine 01/04/2020 5:33 PM E DT 01/04/2020 09:33:00 PM EDT [facility] MAGNESIUM MAGNESIUM LEVEL Routine 01/04/2020 5:33 PM EDT 01/04/2020 09:33:00 PM EDT [facility] COMPREHENSIVE METABOLIC PANEL COMPREHENSIVE METABOLIC PANEL Rou indra 01/04/2020 5:33 PM EDT 01/04/2020 09:33:00 PM EDT [facility] THER RAD SIMULAJ-AIDED FIELD SETTING COMPLEX CT SIMUL ATION AT RAD ONC (IN OFFICE) Routine 01/04/2020 1:19 PM EDT Malignant melanoma of eyelid including canthus, unspecified laterality 01/04/2020 05:19:00 PM EDT 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, unspecified laterality [facility] 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, unspecified laterality Fluorodeoxyglucose f-18 fdg, diagnostic, per study dose, up to 45 millicuries 12/21/2019 12:00:00 AM EDT [facility] PET IMAGING CT ATTENUATION SKULL BASE MID-THIGH PET IMAGE W/ CT SKULL-THIGH 12/21/2019 12:00:00 AM EDT [facility] RADIOLOGY REPORT RADIOLOGY REPORT 12/14/2019 3:02 PM EST 12/14/2019 08:02:10 PM [facility] BIOPSY INTRANASAL 12/14/2019 12:00:00 AM EST [facility] ([facility], ) Endoscopy Nasal Diagnostic 10/15/2019 12:00:00 AM EST [facility] ([facility], ) Results ID Date Data Source [id number] 11/07/2020 02:11:11 AM EST [facility] Hospital Name Value Range Interpretation Code Description Data Fide rce(s) Supporting Document(s) Progress Note [facility] EUCAQu0zTpZRJbVa94/ATBkhAIFju7UmLAuwZVn6LUugFHYyY3GcWRL8vH6pALP7HIyDTkVlSuPlFCL3 lbm [file] AgICAgICAgICAgICAgICAgICAgICAgICAgICAgICAgICAgICAgICAgICAgICAgICAgICAgICANCiAgIC AgICAgICAgICAgICAgICAgICAgICAgICAgICAgICAg ICAgICAgICAgICAgICAgICAgICAgICAgICAgICAgICAgICAgICAgICAgICAgICAgICAgICAgICAgICAg ICAgICANCiAgICAgICAgICAgICAgICAgICAgICAgICAgICAgICAgICAgICAgICAgICAgICAgICAgICAg ICAgICAgICAgICAgICAgICAgICAgICAgICAgICAgIC AgICAgICAgICAgICAgICANCiAgICAgICAgICAgICAgICAgICAgICAgICAgICAgICAgICAgICAgICAgIC AgICAgICAgICAgICAgICAgICAgICAgICAgICAgICAgICAgICAgICAgICAgICAgICAgICAgICAgICANCi AgICAgICAgICAgICAgICAgICAgICAgICAgICAgICAg ICAgICAgICAgICAgICAgICAgICAgICAgICAgICAgICAgICAgICAgICAgICAgICAgICAgICAgICAgICAg ICAgICAgICANCiAgICAgICAgICAgICAgICAgICAgICAgICAgICAgICAgICAgICAgICAgICAgICAgICAg ICAgICAgICAgICAgICAgICAgICAgICAgICAgICAgIC AgICAgICAgICAgICAgICAgICANCiAgICAgICAgICAgICAgICAgICAgICAgICAgICAgICAgICAgICAgIC AgICAgICAgICAgICAgICAgICAgICAgICAgICAgICAgICAgICAgICAgICAgICAgICAgICAgICAgICAgIC ANCiAgICAgICAgICAgICAgICAgICAgICAgICAgICAg ICAgICAgICAgICAgICAgICAgICAgICAgICAgICAgICAgICAgICAgICAgICAgICAgICAgICAgICAgICAg ICAgICAgICAgICANCiAgICAgICAgICAgICAgICAgICAgICAgICAgICAgICAgICAgICAgICAgICAgICAg ICAgICAgICAgICAgICAgICAgICAgICAgICAgICAgIC AgICAgICAgICAgICAgICAgICAgICANCiAgICAgICAgICAgICAgICAgICAgICAgICAgICAgICAgICAgIC AgICAgICAgICAgICAgICAgICAgICAgICAgICAgICAgICAgICAgICAgICAgICAgICAgICAgICAgICAgIC AgICANCjw/nBEyC8ivlGEnckL1H4euZm1WKf9TWC2d z7SrZGNyUSnndrStDdnKXnOuCRKdVizHGyd9DKwrGT0YdITkU2BkP2QdSWwlCV6MIROuOVDpcYCqEAJv PBJzOgL5MLZzHNlbZQ0YnXJwZIqrBGTxUYGgTS5APRLvD094tzUaAM5LHn8HYjUiKD9mjl5UUQqnEZBs PwtNCey9MUlfMJ9PhDZvxQRrIOQrUVRECqOtK0xqe5 XdQpBgJRYUUOdpQJ2Yb2LkvFCdNYe+Dl3XYN9uy7QpQYqoSSEgUT3uyi4QRVrNKbXrD9TevXneUXGfn3 ryXXHmPF7asNYrQGH5PGOhyRJRJH4wLV1actuuFWRcSDJxYX6hPK8fSUIhSEE4FbWcUGOIIL8EOPZoBK NdqYYbRVLhOEADZL7RQViqWXN8VGVwfqDacRMmIZqx MD5ANDXzwzZgWOqiVHJYUNf+Rk1CZU3qe6AjIHzwTTTlIZ9ozq9HMYhRBwYaE2H7nMUyY9R9WHmdZr3N BJWaTFBrGRfcMGBVUIzqFG4XTF3odgV6VB3BfAReYJZoWFWqlJLqQXv5K19tjATxXFtpRO2WWFV+Gerardo+ Zs3DFHAcTXYsNECoOpDzVORJLiNuJ9JwU6UBl4TfF6 RcBL86vAhxeyIsWSvxDF0TDH3vPEXbVFPTPY4AlSXkeH1uqrGzYGQxQJYOBjJuZ89laTXmDHAbXJS3RR AxHd8SFJWtU8TkkqJoaJthnxHnYMPmOYHLCM2LIFrypiLchUBqxMbqSZ48bAtmCZ0PHu5CDnUtFH2ybd 8RtUGxSc0ITIXlDl5SPVIcMVMxGZDlZSN9PIArFbGx TLdhCMKaEDFrTPA6VJMcRAVaPO1YFoIoXSSjSYzpVZZmLYIvWPZylq9OYXIbIFMiQPWnURBqFWKaTBEp JMavVXIxWHSvQME6BWLnQRBuJI4JXhLeLPLwDOQhCmmkUMZdHCIjmv4RWJKbXEByHvJlIbUjDYJrKZIp BHyxJWUwUKI2LWxgKKBoWGClEK5AJvVeKLFqPECaDK ayCVUhITGklg3IWRUsHVErNVU1HaFvQSXpYRXwHMuiUHPlBEQ9NTD1PYJyPTTpJL5UOgSiZFRkNEL8Rs vuFUNpCHYjnj7NABYoZTZzSWfqDUXdBEYqJBSaARsiJXTdQMI3LsY1WQFvEXGiPE6GOgPsBFSwBTa7Yx hcPVTrKKNowh7RCOCsWUEaTws7KGOxGSZfGTVaJRii LDWcPLV2CGK1OTHyRGWrDS3GLiEpWBGyYFojEvZrENAqXLBtlh0BCCGdXVDwZJH0NEIlDFGnRCBgBTys WTTiMVUlHAYkSSNuAPGdQC4KYcAdZGFeXmPgDRZuCECrZHOgne4LKAViLZZxEIMxUQNsRRKlITUpFWu2 fsZbwTGsOFl5LV3PC0BctdHjYvQYAp5De353FCZzVI PoVp4BZ0yaDw5oFENsIQXGEi7QIVh9ZktuCPP2Lrl6MHLyWPIvJiIcSMY1TaBvQca5RfLyMAT+IDxiOW NqDotzREB6ZxIkXwYfWgC8JZkrJSFxLCO9FkG9AZ0uCMPRBb5+UUimcKUmjYjdPOLBQrXjDJd0IWhrWZ VPRg0K ID Date Data Source [id number] 11/07/2020 02:11:06 AM EST [facility] Name Value Range Interpretation Code Description Data Fide rce(s) Supporting Document(s) Progress Note [facility] FDPXXs3uNnKKKfAi71/LTQjdZJQks8OcSIosKJm0AQhqAIEpX3HmUZX2bZ4hXQT4FFkKKsOpUiBeZMB6 lbm [file] REINSURANCE CLERK+Ip3QMBOyDMy0C4E8ZLCdNDz1D8WKP1KOGVPvZMpoDKbxMHZuFSg5I5J5JPElZ1OJM3Arbdfupl8+ TG2NJ84VBBTdAGq1F9O0rWRoW3Q4pJoGaSA2VK4NRZ4AnGd4rJPisO7+UH5KX2TYBsRrSTt5L2O1iHXv Q0A3nPdXmOM9CD1VWY2PqYScISBjlkVcIk8kI5QBWD iWCdXQIQW9AC4YrGMgEH3ZcQFXH6TpuGRxPb2zOIwipDVnaF9qJz5bLCnxWM8FLkTHOTnEWYQ6DM7IdC ZiPC6XuVPGN5RfkJUpGt9iKMxfcHBitt6+NU4QFDBrBt3VMn8+GZnagrYlOueWAkJlNIGfd8WtRTo1BZ 4AQK5dpXdpCMC7Qc1FsUX4mAIhG3nYRK1QcAXuD90j qWJwDMRtTv8UDiV7fhJsqY5POA93wXUfg6K6UADrH1myMTcgl92tJRjiLFjZCE1bSYUSBPtxFVjyKNY1 VwFzkcbhQUHvPi0CGeQjYFy9rM7ggTA8ESB2IpaagAQfJLoqVxBnBoFbZkH1nLsdybp4AWfmLP8lJYrz czptZXRhLyc+UFiqVLPaVZKgDnnGHRQjoB3fooX1qr ZaSHwkiKUqGm5sx3a1IfivEr9tCj5bZCf9NfZdAqSrNHTvBl5iaU73JNfxdxEvAw4AJoAaMFW5D9DbWt pSREY+TVghRVomyDh9xKWvOCBnTi3XOSUmLEMuMVWaHVKoSRIxMFZlESTzCMEzOVUjWAXzEKCkTKHwUE AgICAgICAgICAgICAgICAgICAgICAgICAgICAgICAg VHGyVFZpLBBiHOQaBXVfENQhJDHuQOJaKKDoCPUgZS4YRUXhQVCePEAfAEZyMVRyQEYzZTExRVWdISMd ICAgICAgICAgICAgICAgICAgICAgICAgICAgICAgICAgICAgICAgICAgICAgICAgICAgICAgICAgICAg TXWqFUAaBRAqKDSkPU0WOOYrXKNvHCYaVAIgCJSqMR AgICAgICAgICAgICAgICAgICAgICAgICAgICAgICAgICAgICAgICAgICAgICAgICAgICAgICAgICAgIC MySMMqDTJdZHEpBZPyEPNgMFPpWUUkGB2UGFNsVJJePQBdPFTdMMUqOYAdTLUfJUDmYHFbXNCvGHQhMB AgICAgICAgICAgICAgICAgICAgICAgICAgICAgICAg WJJxLLBkFMNcNWHyEJJmKLXtDSFqTTJsIWHqUMMuRVMiIH0KIVPwOQCqIGOtGCLiONXwUFWqWBEdIKSs ICAgICAgICAgICAgICAgICAgICAgICAgICAgICAgICAgICAgICAgICAgICAgICAgICAgICAgICAgICAg CVFuQKBkZCViYTUnLOUkVY6BPTKpNSBsBXUaUBNbZZ AgICAgICAgICAgICAgICAgICAgICAgICAgICAgICAgICAgICAgICAgICAgICAgICAgICAgICAgICAgIC MsFMNlJDXwZIFpMXCwZPKeBZLiYBIkIEBgZI9WQYAsTGUvNYPgRZOsRDDuZYBfWVMkGLWeSFGkNXLcFK AgICAgICAgICAgICAgICAgICAgICAgICAgICAgICAg OEBdLQTtPIFuDJGbTLKmTZMtCDCaPASpCUCdDAQzPKKwSVDgHL4CZXDiOXJcXMTvOVVxKDNzJLZdUVLc ICAgICAgICAgICAgICAgICAgICAgICAgICAgICAgICAgICAgICAgICAgICAgICAgICAgICAgICAgICAg WLUoYUUzBDByFGTqLXMwYFIfPX7QFOXjIQTvJNJtRM AgICAgICAgICAgICAgICAgICAgICAgICAgICAgICAgICAgICAgICAgICAgICAgICAgICAgICAgICAgIC NbTDExKYEjVRSsWTRdIQCwAIUzGMPoYFVtVBPyLV1MNPNnADPjHNIxOWJxLZAeIYBmKSEbATXzFWLvAK AgICAgICAgICAgICAgICAgICAgICAgICAgICAgICAg ATMkNSXzRLAkZCEvSVXjOROhGWUqAEYiHHIdBCWeFIZvUPMbNLApRO5EAH76mRThp1E6OPTaGY7ochg/ Rw6CRVigbmZugTClPI2HMbIfQI4hhl3YCoAmWF4soz8ZMZyBNgEqD3C7mZCuQGTaWUSPZoYlO77cGOcl Rb15UFyvUUCvKwUmILi3Py0YWpOmF3hmFKJhEeM2BX WpCxE2WZWnTcT0MATxLrYhEZOhLTDuFUWjOIFBPF2AIrKbD8OkfG46TQTJVr9+DQplbmRvYmoNCjMzID Aro4QyLZk9ZS8LGPWkZhptd0EaElRuDOCIIWrkEX7AQBV4WGR9PATlOs9CFVNwW444ngOmAO1FDn3VKj NeZK9qdk3NVmIaXTNyDdaPYnh4ZWcjPW5HnTEgAJaO st2cfgZxflSGa6BbhnLquDLRTG3hmKQgWqBEVAzuv9V6wfbpDH2KXDU2FJWlPSPnXfOoXOCxRGfaXTLC OYeZRaGnF0Wnk8EyYeQ5UWRiNdIaHGfoYPNnKbO0NC78pByjVK2UGWUzCSIgSP98NXTyVIUxWv2ALi3V DsSaQK5hkg8WBiHxNPLwQpfHXcg1CJiuEA6SuCVtZ8 SsqDQnh3iUHwJxH1KHJCLhZBIfAo5LBUJjScDoOFTqZAgtOK4bDTHhAXPKxSbqxlG5ST8OGT7fusGnLV 3ETzHoEn9eNa7RDiJeK4ZaF4DoMRJhPNJTQDrsGZ4HNLavZW7pMR0Ev8REhGSfeM4mxb1SKEGrCXBhBo oqhv7UYspjR9Q9vVytMLDsWoRyCJULYQedUV4YOOEz IUK6DLIrNeCkUSYRGqHgN65bIS8XL1Iri65dUbQ1HMFlKzVgTPujRO37sHdmvqNbsDHluZgoLO8EWd8+ MLbenfBwHlvNPrlaYPRWIbWiAeRTHsFcQNXoNHAlVRZoUnF5CmQiPp2KRLEjGHYkNKUeMdNeDRBeMTRg HFhaTPBpOMS3KeV3YJRvHTOhBP4MUiBiZOQuEsu2CO dtRNKtPGDilb8VOGGqYVFvKRH9IbWcHAKmTQXqPQubVEBlHUP8EEO3BAXgKDGvTJ8NWxLyRCDyYGTuYi RkJHDnMJMkod7SELEzMUQdQCB2YqRwVPIuESDuFIydNQSwVZR4Cdb1PATjJNOeMT5GMvMaXAUlZZD3Qw GoTSPuJOTrje8YAZFaHPDmDpSrVJKqYSZyXGEkTSxe TLCqSCQ2GWzlBCEjAZKjPF6EFjBmVRPvRJu1LPqqBEOzIVTyrs9YJRFaANXlODVyCXOuPDQfURGdONxj XTVcNWL8FDHbNHBuCTSbEI8ZPwItEDQfZHd8RRVoGBYiRXOwac2OGCEzCRJoFNJ1NVReOMUnOGDhEXxm TLMgKES6SUexKSTsWVTsZS4DVwTeGLGfWaK5VyDvOP RpQIHtsy9VUHMcFGPvYAPmJjSvXRClHBOfKJzuJMKnPVLyEcIqTLPqMJPvIA6HOtDcVHCyNpO8GNBdML KiMLTmju9APMKiDRAhUhi3ZBOpZPAtCDWpPIncIULvDQLjLXs7CNCjMVAoZV0OHrVyMAOyZbJ9JgFvEZ McDNZiet7VFWNkKNJlSvM6HXPbEMTqBTYyTNbgLOOe MGI4YSP1KOMsIDUeDC7MGmLlUQHqMqM7KSOrEPOdFSLevs7OYDPqPRKaOKi6VCPsBVOzFDCtHFiaOCPt LLS6AMX4WWOeZHHwZS3OKmVrTBQvLfAdSJHzDXAzZTPflw4MTCPdLZZdJwB9FdRoYVPzMFLzPKtcCHId BZU3EzS3ICEiKAIzYW2EIbYtLPLhEpnvRKPhCLIqPD Gaxv8VPDUfZFUuMRR1THEpSZJmAJIoOTcfZVMjBKJ5HtC3JIBkPONxIY9UUsVfQWqqPBHIPxr9SOyaR8 r8JOVeAn0XS3Rze6TcGpZfWQSZJOnhIO7ofdAcTXJsMy7BD0gLDmyxHJK9A1W5TjL8CKUsPzGlDcd3Al NqWBAsQUxcQGwhVi2lRZGaBBDaOMAnFAufGuC6OUJs OGc0EvSoZuVwYwZ9SPInPsRvMU2RYl7YOwL4SBS5cQPlXl4UTmj5YPPFQsIxMM5ZCGv= ID Date Data Source [id number] 10/08/2020 10:05:35 AM EST [facility] Name Value Range Interpretation Code Description Data Fide rce(s) Supporting Document(s) Progress Note [facility] XXHIXc5uCcURXrCv83/OVKmzUIRju1GsGGgmODk4MTdfHOGuP5UpFOJ6yN0cQMQ1GRlIPnTtKdYeVpRd lbm [file] AgICAgICAgICAgICAgICAgICAgICAgICAgICAgICAg GNWlICQnYLEnJFNtSSPxCGVePGWyTHJiRJYrPCXeGPBhZCCgMKEcCONnCJQnZHLpMXLgHI4MCBZzHSHd ICAgICAgICAgICAgICAgICAgICAgICAgICAgICAgICAgICAgICAgICAgICAgICAgICAgICAgICAgICAg ICAgICAgICAgICAgICAgICAgICAgICAgICAgICAgIC OfKM2WEQFoZDSgCXYgJMYlBPWuFRCaMRXrZCYhSGMfISOdRUHcULSkQIJuZYXgLYCqBTQhICRuFFDoVR ZqBJOqWZTiMOZsMKTsVFEbUDYmTKWwXHByQSAyFECiJLGkHNGrHBStOCJqCY3MXCLcDKKlUPRnHPSkIP AgICAgICAgICAgICAgICAgICAgICAgICAgICAgICAg MLMlQRRhYRFuZLKqDFArOJZsBMKwQDFcLMSbAHQwDEKiOIFuKOUtTSNkQRArMFAvFQAgIOGsQT8GTBOa ICAgICAgICAgICAgICAgICAgICAgICAgICAgICAgICAgICAgICAgICAgICAgICAgICAgICAgICAgICAg ICAgICAgICAgICAgICAgICAgICAgICAgICAgICAgIC ItFCTwJZ6BKSSvQFOdYYUcSFWwOFGwFKFiZXRcUIJuGEQxJENkBKBkOZOtOFTlLUXwQXMtFSOdPXRdRL VuYNUxBPXvYWQsJUEcKRFcLEXoEIYlOXXhMDHxUMLaNKPkQXRpXIGuBPAeKUJjLB7MWUDiOALdFVBvQW AgICAgICAgICAgICAgICAgICAgICAgICAgICAgICAg EDHzHENjYUDpJVCaCBQpOXYlHPPdYLAuFPVxZZLpDIZmRDJcFWVvBSIcTFYwABTdJLNlCGLiHWBgKN3K ICAgICAgICAgICAgICAgICAgICAgICAgICAgICAgICAgICAgICAgICAgICAgICAgICAgICAgICAgICAg ICAgICAgICAgICAgICAgICAgICAgICAgICAgICAgIC TzWFKoEAGuAS6ZMMCaKNHnOGOdDTXyTNVnVBFlRGFmEXZpWPCwUJTzTCXrLPTlXFAgPWSjWGBuUGRuRT GyXILeGKHuDDMgUQVfDNLbJURkQOUxYRLbAEDfYINaVURwVOUsNVWgLAPjBXQyQKSbFR6SBPMwIQTxRB AgICAgICAgICAgICAgICAgICAgICAgICAgICAgICAg ICAgICAgICAgICAgICAgICAgICAgICAgICAgICAgICAgICAgICAgICAgICAgICAgICAgICAgICAgICAg KP9CND58wFGff2Y7XUIaVP1ppxb/Se0EODjqonEafSFuCB4QTdGsTU9kkc4KKxSyYC4vcn6QLDgEEdWu M4S9aHKaUQBlAXDOFkBbU43kPFxdZc07KEpqYKZyDp EwMXp3Pr3QYyYnA8axCZKtMxJ6PWAeBkZhZKbeNP4Uh6MttGTeDJz+No4BWU0qs1TyRAykMTMnGR7msi 4ASOoWJeUdF8TpijW1LFXhZZKiGk2LQLPhMPKtyQVoHQSjOVTTIdBsZ5OllE31PFZSOk4+DQplbmRvYm vMUoPgYJJjt9XbNOn4FW6OENLnJMn3kPJmZDNdA4Be h5FyLt64PKJiNqmjP9BsZFCdfuzknVwcUXJIOMZetPNvGa2sKv6rBLXzNFA5JoXiRGOPFK3RQMApFIId rPSqUNVbCMJZUQ6UKUorZMB4HXCgqtIrlVMtTLqxKU7BLKUhurEmSWuwAYUHPXq+Tl2DHO2nb1AsRAry RQVkSH3sqa8EBRgJEgQtL2C7oEQvD2K0KDduTb0WXE CoTPQzKCapOEJJWAeiXO3YNQ7kuiH8TZ9CcAKuDABaGLVjzOEtEKu1U98kiWAqZPocSC1FBAU+Gerardo+Pg 5MYFWaOVTwWHDtQzDwDKRHIrFhP2LpY3TNn6YsR2AwJM47rXjgzvMdNJfyYU6HCS6dKYMmRYWWGP6GfX DbuO5lthQvCPUjSYHCFfYqP58xsKOdQFRqQVD6XCFq Ip7VJOKcJ8EviuQtlIzrlaQoBYLcVRXUOA6QWNxlfxDpuEUoyRnaEO84pSbxYE0ZLb6EAxNaMV5saw0W hDBxDk1FFIUxZj7DLCRwJIKnMDNbNUE2OKYrUtLeKHplNTHxZZNrIQP1GBXfKPAwMC6WEnSpFVOhLZO6 XiYoLRIiFWIgjg0TDRKtLQBkEWI9TIFhTKJlZFWsVY ecTBShCNFrJHI6NGLzZAKaMP2LVzJrTHPyBWU2UFXnYIOeRQAnqd6YWJZmYLPqGJbuPFDrFZIpVKOxFN rhCKGiSTWzIYS1RCObPHYuVN0PKhUuZLFfWJTgFKBsVRPnYKOcrd0TEAAdJVAoQoWtVISvSYHvNOIqOQ smDTBzXMF0WZpeVPBaZJGeAK7ECyGvSVDaIOFeWFSw DCEoKSWfqf7WGTWwLJTsOZH9MfBrQCDvNTIhKBspIWUeXYC3TVH5VOYvXNTvIR5VFrUeRBPdVOLvUDQq ZJXfTDDzjv0GBFNdJQWaKqA5BwFlAGScQPMvMAtvMNBoWZU3EfHrDTBmBQIjLN6UDvWnKJNxOEQ3FKmf DUXjVFLfji1FRFOnREYmIrF1HUOwNEUlWCGyGIfgAB FdVZI3Hys0CBFwWLStNI4QMzHyLHKiFEf0BNchQIDvDTXfxi3DUQUeDTVpZDgrIXGiTESpHSHmPTi7iy OsnGSyLIc0NT6JT0DknaZsUhIRXv4Bg198YEJjSXMfIp1BK4dfYa7eILFpJOIMDe7TIZg1KDkqPWIxJi PrWDUoZPRuPFY5Ehq9MOQ5BOMgPgWmDli+DXl2HHRv XeRvTRP1HnRfQzW2FUTyKXljAst6FPBhBcN5Vo7wGZNACd6+BDfamHPzfHhnBKGAPzF6TXN0NHurNZHQ Rg0K ID Date Data Source [id number] 10/08/2020 10:05:30 AM EST [facility] Name Value Range Interpretation Code Description Data Fide rce(s) Supporting Document(s) Progress Note [facility] JKCBSb4mMuZBGrCp70/ZVVtoTVAcj0RjQXhgIDs8DEwaWKXoY5BbCQU4cX0xFMS0OHuOQwYyFuSfEiDp lbm [file] 0jp70aIEPgq7/BrMjCMAxW/7Z/FlUcHJwFf/yNrA1nyesC9o+yl9Z/2jt7rk47te6iM14+u/Po+urologic nurse+8G HnGZb3f5tu+unZ4gxTce1i+fHJ+eg40DN4V/dm/2t1t49t5xdBo+++Cx4/uDA8u3UyOEhzel+TaLPzx3 xYtlNwLFNF1Z8jRy4BNB3H04RhAzodoeOn25Cz9uSO 0+IMEeBNBOIQ6wiepbIBm49JiNxTS/ILdS8HlNe3fLX0wjykTe88emHL3nqB/PsaDtge4b7gDEXmxnmC 8z0d+EgfyOMmcaPHnfVxhogY7nzeax3/Cvzf3QTvPq3oXCEe1C8oKwyDdIWgLMzHbngmEUgn7yZYRKzr Wi5mCtxHJaANRxAcdR4oIPgFFBAybS4SHtEbZKeMHI ra4vMq0raJsagDe8AXcOZySf/SKeVuVCp0wGBhXwuJtyxVlaXDXKYVpE4GScPW6a/Oq9DAjn4qvkJuTc vHLwbhGvFqUZKbGHy3LjmXdMXvDQhVjPLNSt1L8F1KZBhNAL8mkKQ17GxzuBOP6WRNCfDD4LLwMH4nV3 DakXUNvJQzArVnbs7Cg4zigARt76EQoeiJO312Bvhp vjrzYcnCRjhitqySX11HSeUougvyYtD3AthktOmsaxxrSmhnkB0aT30Wqs16JN87FN/yLOt1xpeaBGWB [file] 3lZAOXGa0+TBusjKEgxUxwUDSPRjB1DsBoJAdlNQTDWk6X ID Date Data Source [id number] 09/08/2020 09:23:28 AM EST [facility] Name Value Range Interpretation Code Description Data Fide rce(s) Supporting Document(s) Progress Note [facility] YMPZTt3lCrDFJpSb02/USHhnNOIuw5UpNWyqQPn2HJnfQCMrX4EmOML6wO7pEWT3CWtJIbSaWvFnSYOz lbm [file] DQo= ID Date Data Source [id number] 09/08/2020 09:23:18 AM EST [facility] Name Value Range Interpretation Code Description Data Fide rce(s) Supporting Document(s) Progress Note [facility] RHIULo3gWfEROlIv71/KLXtvSFSzk0DdNXrlKNo0VYqlTKLkW5YbIHK7hQ2oGHW4SUbQNgXcEcZoVYZn lbm [file] BxADHcPFOrEZUnQTFiGIRyDaIcEV2SLp8LAqF7ZTA1wEQkTx1BNiJzDCnSAsPxHK4JNSp= ID Date Data Source [id number] 08/19/2020 02:37:01 AM EST [facility] Name Value Range Interpretation Code Description Data Fide rce(s) Supporting Document(s) Progress Note [facility] BWGWDj2hOuSKAxJy59/LDQreEWUqt8DcADoiHVq6IVegGPUlW6WqOUU6cJ0rIQN2VQyOCoYzMnYkAGCe lbm [file] Pbdgyo2Cd9ok0Eu4UhDLsPV7sjmNmQAlJOOOyl+nm4f4AaCtYRSy/I3yn6e/maoq/XQeWoX7mLtn++Kitchen Cleaner [file] TLDGMn1H ID Date Data Source [id number] 08/19/2020 02:36:56 AM [facility] Name Value Range Interpretation Code Description Data Fide rce(s) Supporting Document(s) Progress Note [facility] OHIQJx8gGsYTRaWq15/DGOjmHYBhf9XvSZbeFLm6CYlcGQMwU6CmDQC0wW4xYYI0TWwCNbMgBjCtLMAf lbm JtMtxNSdAnULNeFdcJRaYrTPnfWbwxmOZqQT3RpJY2SXXhB11tDGMjZYQaB0DoBVI4YJS+Za0PLYUycD XwYG2WSesI5W3zimqKRt7cdF/MxlJHK6mhdx+UQPzt9BgBVXOrfKUU1jLxmSTaBQfYmG47k+oh3vI3AH 34/UOfm52kj1xdySEa4VK84gO4e4h863tnlfpz50w9 /4kayO0Wk1xs5f+KyMwrrYnk0zw8dQkInSzF7m+UP0P/9i9fT3fuV31gcyBAV+LDz8ZzbsmUfhYrhd09 +Tosha/7a0AZufcL5W3lJ9img1fspLm7vA9Yb6hbXw0mfkvpVJ2NHq1fb+sG0OUD+9cDfl2Ms3LAp6CYt7 wSJ2wt86gh6MG06Tg6Pgr63He94GMkmRER1P7Ga2Z7 [file] A8PvSPVeTmUmWZ1MAx6MVnJ6NXZ6fNQqKr0UQEM7QlPWKdUjDR8ZNKm= ID Date Data Source [id number] 08/12/2020 01:38:00 PM EST [facility] (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 [employer] Clerk sections are submitted in three blocks. - 08/13/20201432 Signed Jair Kapadia MD 08/14/2020 1450 ID Date Data Source [id number] 08/12/2020 10:36:00 AM EST [facility] ([facility], ) Name Value Range Interpretation Code Description Data Fide rce(s) Supporting Document(s) Potassium [Moles/volume] in Serum or Plasma 3.9 meq/L 3.5- 5.1 Normal (applies to non-numeric results) [facility] ([facility], ) ID Date Data Source [id number] 08/07/2020 11:00:00 AM EDT [facility] Name Value Range Interpretation Code Description Data Fide rce(s) Supporting Document(s) SARS coronavirus 2 RNA [facility] This lab was ordered by [facility] and reported by [facility]. ID Date Data Source [id number] 07/22/2020 02:01:31 AM EDT [facility] Name Value Range Interpretation Code Description Data Fide rce(s) Supporting Document(s) Progress Note [facility] XVVJXh9wQkJVAhTy13/UYNcjGXCpm0KqDZdxRXk4WNbzFJGjN0EdINU3fL2pJKT4KIbIOcKbKuDmSABk lbm [file] ID Date Data Source [id number] 07/09/2020 07:40:00 AM EDT [facility] DATE OF EXAMINATION: 07/08/2020 8:47 EDT ABD/PEL [...] Value Range Interpretation Code Description [facility](s) ID Date Data Source [id number] 07/04/2020 03:16:00 PM EDT [facility] Name Value Range Interpretation Code Description Data [facility] rce(s) Supporting Document(s) SODIUM 139 MEQ/L 135-145 [facility] POTASSIUM 4.7 MEQ/L 3.5-5.3 N [facility] CHLORIDE 100 MEQ/L 94-110 N [facility] CARBON DIOXIDE 31 MEQ/L 22-33 N [facility] ANION GAP 13 5-16 N [facility] BLOOD UREA NITRO 13 MG/DL 7-25 N [facility] CREATININE 2.7 MG/DL 0.6-1.4 H [facility] GFR 23.8 ML/MIN [facility] Stage G4 - Severely decreased kidney fu nction The GFR is an estimate of the Glomerular Filtration Rate. It is an aid to assess a patient's renal function. It is not a conclusive diagnosis of kidney disease. GFR normal is >=90 The MDRD GFR calculation is considered valid between the ages of 18 and 75 years only. BUN/CREAT RATIO 4 8-36 [facility] GLUCOSE 118 MG/DL 70-100 H [facility] CA 9.2 MG/DL 8.7-10.5 [facility] BILIRUBIN,TOTAL 0.7 MG/DL 0.1-1.3 N [facility] AST 11 U/L 5-40 N [facility] ALT 10 U/L 5-48 N [facility] ALKALINE PHOSPHATASE 96 U/L 40-140 [facility] TOTAL PROTEIN 6.1 G/DL 5.9-8.3 N [facility] ALBUMIN 4.3 G/DL 3.0-5.1 [facility] GLOBULIN 1.8 G/DL 1.5-3.5 N [facility] ALB/GLOB RATIO 2.4 G/DL 1.0-3.0 [facility] ID Date Data Source [id number] 07/11/2020 08:36:00 AM EDT [facility] Name Value Range Interpretation Code Description Data Fide rce(s) Supporting Document(s) 1,25 DI-OH Vit D-SEND OUT 57.3 pg/mL 19[facility]9-79[facility] ID Date Data Source [id number] 07/04/2020 03:16:00 PM EDT [facility] Name Value Range Interpretation Code Description Data Fide rce(s) Supporting Document(s) PHOSPHORUS 2.3 MG/DL 2.5-4.7 [facility] ID Date Data Source [id number] 07/11/2020 08:36:00 AM EDT [facility] Name Value Range Interpretation Code Description Data Fide rce(s) Supporting Document(s) PTH, Intact 185 pg/mL 15-65 [facility] Performed at: RN - [facility] [address] [id number] Occupational Health Nurse Manager: Rhoda Samuel MD, Phone: [phone] ID Date Data Source [id number] 07/04/2020 03:16:00 PM EDT [facility] Name Value Range Interpretation Code Description Data Fide rce(s) Supporting Document(s) MAGNESIUM 1.7 mg/dl 1.8-2.4 [facility] ID Date Data Source [id number] 07/11/2020 08:36:00 AM EDT [facility] Value Range Interpretation Code Description Data Fide rce(s) Supporting Document(s) PTH-Related Peptide <2.0 pmol/L . [facility] This test was developed and [...] discordant, please contact the laboratory. Performed at: [facility] [address] [place] [id number] Occupational Health Nurse Manager: Manav Mac MD, Phone: [phone] ID Date Data Source [id number] 07/04/2020 03:16:00 PM EDT [facility] Value Range Interpretation Code Description Data Fide rce(s) Supporting Document(s) Vitamin D,25-HYDROXY 47.4 ng/ml 30-100 N [facility] Vitamin D Status Range De ficiency <20 ng/ml Insufficiency 20-29.9 ng/ml Sufficiency 30-100 ng/ml Toxicity >100 ng/ml Patients should not be tested for 72 hours post fluorescein dye angiography. A false elevation of result may occur. ID Date Data Source [id number] 07/11/2020 08:36:00 AM EDT [facility] Value Range Interpretation Code Description Data Fide rce(s) Supporting Document(s) Calcium,Ionized,S 5.2 mg/dL 4.5-5.6 [facility] Performed at: RN - [facility] [address] [id number] Occupational Health Nurse Manager: Rhoda Samuel MD, Phone: [phone] ID Date Data Source [id number] 07/04/2020 03:16:00 PM EDT [facility] Name Value Range Interpretation Code Description Data Fide rce(s) Supporting Document(s) T3 TOTAL 107 NG/DL 60-181 N [facility] T3FREE 4.5 PG/ML 2.3-4.2 [facility] ID Date Data Source [id number] 07/11/2020 08:36:00 AM EDT [facility] Name Value Range Interpretation Code Description Data Fide rce(s) Supporting Document(s) Thyroid-Stimulating Immunglobu <0.10 IU/L 0.00-0.55 [facility] Performed at: [facility] [id number] Occupational Health Nurse Manager: Reyna Wilkinson MD, Phone: [phone] ID Date Data Source [id number] 07/04/2020 03:16:00 PM EDT [facility] Name Value Range Interpretation Code Description Data Fide rce(s) Supporting Document(s) FREE T4 (FREE THYROXINE) 1.02 NG/DL 0.76-1.78 [facility] T4 (THYRO[facility]INE) 7.2 UG/DL 4.5-10.9 N [facility] ID Date Data Source [id number] 07/11/2020 08:36:00 AM EDT [facility] Name Value Range Interpretation Code Description Data Fide rce(s) Supporting Document(s) Thyroid Peroxidase (TPO) Ab < 9 IU/mL 0-34 [facility] ID Date Data Source [id number] 07/04/2020 03:16:00 PM EDT [facility] Name Value Range Interpretation Code Description Data Fide rce(s) Supporting Document(s) TSH 0.313 uIU/ML 0.470-4.200 L [facility] Patients should not be tested for 72 ho urs post fluorescein dye angiography. A false depression of result may occur. ID Date Data Source [id number] 07/11/2020 08:36:00 AM EDT [facility] Name Value Range Interpretation Code Description Data Fide rce(s) Supporting Document(s) Antithyroglobulin Ab < 1.0 IU/mL 0.0-0.9 [facility] Thyroglobulin Antibody measured by [employer] Performed at: - [facility] [id number] Occupational Health Nurse Manager: Rhoda Samuel MD, Phone: [phone] ID Date Data Source [id number] 07/11/2020 08:36:00 AM EDT [facility] Name Value Range Interpretation Code Description Data Fide rce(s) Supporting Document(s) Thyrotropin Receptor Ab,S <1.10 IU/L 0.00-1.75 [facility] Performed at: [address] [id number] Occupational Health Nurse Manager: Reyna Wilkinson MD, Phone: [phone] ID Date Data Source [id number] 07/03/2020 10:50:33 AM EDT [facility] Name Value Range Interpretation Code Description Data Fide rce(s) Supporting Document(s) Progress Note [facility] BODNPe9dCyQVEgGr11/EOVpyCLDjg5BiUKyuUXk3IEfwIAIpJ5ShWLA2qG2eMHR0IGcNOsHqFpZlUYY3 lbm [file] AgICAgICAgICAgICAgICAgICAgICAgICAgICAgICAgICAgICAgICAgICAgICAgICAgICAgICAgICAgIC AgICAgICAgICAgICANCiAgICAgICAgICAgICAgICAg ICAgICAgICAgICAgICAgICAgICAgICAgICAgICAgICAgICAgICAgICAgICAgICAgICAgICAgICAgICAg ICAgICAgICAgICAgICAgICAgICAgICANCiAgICAgICAgICAgICAgICAgICAgICAgICAgICAgICAgICAg ICAgICAgICAgICAgICAgICAgICAgICAgICAgICAgIC AgICAgICAgICAgICAgICAgICAgICAgICAgICAgICAgICANCiAgICAgICAgICAgICAgICAgICAgICAgIC AgICAgICAgICAgICAgICAgICAgICAgICAgICAgICAgICAgICAgICAgICAgICAgICAgICAgICAgICAgIC AgICAgICAgICAgICAgICANCiAgICAgICAgICAgICAg ICAgICAgICAgICAgICAgICAgICAgICAgICAgICAgICAgICAgICAgICAgICAgICAgICAgICAgICAgICAg ICAgICAgICAgICAgICAgICAgICAgICAgICANCiAgICAgICAgICAgICAgICAgICAgICAgICAgICAgICAg ICAgICAgICAgICAgICAgICAgICAgICAgICAgICAgIC AgICAgICAgICAgICAgICAgICAgICAgICAgICAgICAgICAgICANCiAgICAgICAgICAgICAgICAgICAgIC AgICAgICAgICAgICAgICAgICAgICAgICAgICAgICAgICAgICAgICAgICAgICAgICAgICAgICAgICAgIC AgICAgICAgICAgICAgICAgICANCiAgICAgICAgICAg ICAgICAgICAgICAgICAgICAgICAgICAgICAgICAgICAgICAgICAgICAgICAgICAgICAgICAgICAgICAg ICAgICAgICAgICAgICAgICAgICAgICAgICAgICANCiAgICAgICAgICAgICAgICAgICAgICAgICAgICAg ICAgICAgICAgICAgICAgICAgICAgICAgICAgICAgIC AgICAgICAgICAgICAgICAgICAgICAgICAgICAgICAgICAgICAgICANCiAgICAgICAgICAgICAgICAgIC AgICAgICAgICAgICAgICAgICAgICAgICAgICAgICAgICAgICAgICAgICAgICAgICAgICAgICAgICAgIC AgICAgICAgICAgICAgICAgICAgICANCjw/pOMpZ4mf oKTtgvW0K7ssXo5MZt3NUD6td7CuWQMnLTswujRlIykOAqGdHCTlVqbKAve0ECgcJS5TpJFtU6FiO4Td YJwmPY0MZFRtDNKurZCoQCIxNPBbFgW2KPRgIQbeUE8WdMJtBXvlTHEdMUUtKzTjGYEdHJCmCXKoZJRs NTXEXMPxVDToEvUaOMruQD0Pr8HwuIX7RVf+Pg0KZW 1gp4NiKYdhHMLdLV0dbt6LSYaMLlXfM2XgyjM7SUYfTVJiOs4XHMDhISGdbYBlBCWiVGMCPeJdX2VnfT 89TTQCTy7+EAriqvLaUyqPYgNpZPFsy2CcEDh2FA3HQRHsDTa9rLSnPRLxF2Dkt6YzMj87HGVvJsapUJ J6clBjQlVPCP0hZGD1fHsxAzXnUSNmHS5cXN8oMUNc IDZ5EbSxHCVYSW0PHDUeKCJggYZnJMUbMPANHC5WHSnnGCD2NORxpmBkhCBaXHlfNM5AKBYpaiZaZnEj MCBSDQo+Pq2SNN5kz1CwACttTxBnOE3nsu4BLJhRFbEyL4N6gLAqN6O4MImuYu8SVNTvISMjWdwiZFAE WVraGJ5SCE1dvfQ6GV9ZuHWlNMXpEMXvmXAgFGt9B6 0dlUJzHTxiYE4NOWS+Gerardo+Sg3TMGQjLBLeMKTwVnSxOVATHhTxX8LmH8CBt5AaU3CjYC50mSsqjwVgHJ ufJK1SDB1aHMMaLSQPBZ4XeXRhiN7tdvLnFWLoODOBGmIrQ41ypTDsOQAhCUH5WGGcVc5DNXJzY0Sxws HhmCegfrBjJLWdQBDFQR2NPSgbekAlsTGyaAlrPP80 lMeoEX5TQe6MBvLgBN6gbv0VcFLmTy3CWYSoAd8VUGNeASNnLKBjIYZ3XFDtGmSqYVcnHEVgMCKuCNL0 ESShGRYcNZ5ILkXcRUYzZgBdVjAwPVDvHUQgie9BYOThWYAnYdgsBHPdHSHtZISgBBdmSFYpYCUsBXZ1 FLAmEAWzRG7VGbObRZAcWGMlLtXkNHTnQHAqwm8WVG VsDHMgZNLoHMFwYHQsOMVhRYzfLBZoXUL3VFR5WFLwNKZaWX1YGoGkZZTlJSe2VyvmNJVhLAAtsf6IEB IxREXjQXV0FlQqMNIiJNDnUWqrXGJbYMS8XjK7JKQcIFCdNC5ENfIgNHOvFWwdFkflYZUdNYKfom8KDO UtONWcAJG5EFIeAMBjNYQzJOvzZKBoBNP2VjZgQJVm LAKoZY4KQsYcMNEoIIj3ZHapBOCrJDMmow5ZFQNySQAmTEu9KpQcIFCjDIEvYFbnCENpTGXlBYQ5PYQu MVXvKZ4JJlXeUBUyExWiVKuqNLPpEPCpoe3MFVSuOGInVdMuHgXqJPLuDCJeTIblQRRhEVFiWbT3IQRg ZJBtHV5SJzRaUAVeNvW9OYUzALQgCQIbrb4UTFTpAF UvIumvEmOpCOHbDGRlUFgsQOQnWBB2BiQeELMyZMGhOV1CAvDgUUOzXtA8CnTkAEWvQJIhcd9SYWTnEG CeVHncJBJyRMFnCANcWMobIPFnFFM8QLK4OYLsNSDkCV1WPiWqZXOfSdG3XYReJONxRFXpmm2PPKKaMM TqOEg9QXIqJRDmBQOoCUroJTHgZGB1DEPvSZDgHECa CB3PXoLvVZEaWuA1SrplMWPnNBXeas9MLMFqFHUkEEMdOwYcGVFuGNUhFWbiUCGrLPP6BRW0GXZwDFXy KH9CVqVxNRBgVonvHCOjNIWjWTXbyf8DwBXvnWgnis3TZRjOMr4RzWdvXUJxUCmsNv2trQBvEhVbCGZL Hm5WftDcWCXeEBHFRFklBOYdQEYiOuzyHGO4ClU9FX BwIfDvTti6SmU5HBY8ClH6PCS7UjE6CEApGGOyMaCtXaulMUFiXAWbNiknRFg3WKMzCyo6Lsl+IF0gDQ o+Ki2Bv8KytiI5ssDaBXqrAYC1AK9YCSBCB6SMAo== ID Date Data Source [id number] 06/09/2020 08:58:46 AM EDT [facility] Name Value Range Interpretation Code Description Data Fide rce(s) Supporting Document(s) Progress Note [facility] TMUMNa4nPbGWMdFz12/KLBikHKUsc3RfYWdiXCp2BBntAENuX6QvBQO1oD3iWYR5VNdKYyCwNwRhCBXq lbm [file] N6Jti0ABY3HQV1KaNnRV1PFn6INqK6DXD4aHIbRt8SRdn2RZALJcOjBE8ZUEd= ID Date Data Source [id number] 05/26/2020 06:55:[address] [facility] Name Value Range Interpretation Code Description Data Fide rce(s) Supporting Document(s) Progress Note [facility] BGCFZu0yJeRRAcXj50/GIOafPPMwq9RhDAzwXLr7CJctKRHuW2YeRXN6rG5sZCB6IMfCUhNfBfVbSSP4 lbm [file] LOHhK9CyUVZrA7K7NHXuMdZmYmZvKN0RGs0KYlU2BTL7eQMxZp6KXVuyNelCByYxHM6ZKPj= ID Date Data Source [id number] 05/08/2020 11:19:43 AM EDT [facility] Name Value Range Interpretation Code Description Data Fide rce(s) Supporting Document(s) Progress Note [facility] EKYZSh7sMuRJWkTc16/XYNcyIUBfw3GvXFgrONs0KLkdSNHmJ6BuIMQ6iY2dGXQ9NInEFxPzFuIyLaRc lbm [file] j8azCOLAv2r9Ht/urologic nurse/wNZxNVZp8ebfu+IfjqO24MjK [file] ICAgICAgICAgICAgICAgICAgICAgICAgICAgICAgICAgICAgICAgICAgICAgICAgICAgICAgICAgICAg GMAjQUFpYCUlQWTfGWVtQQBtPN8GYPRkJJMaWHRoVY AgICAgICAgICAgICAgICAgICAgICAgICAgICAgICAgICAgICAgICAgICAgICAgICAgICAgICAgICAgIC VtMTCtIZWoURDwYZRtPIEyFBZnRVAfNRXuUIJiSW0QYNZkYKAaWXGjKNNdATLlAVCjIRTmUXAuBRTxHR AgICAgICAgICAgICAgICAgICAgICAgICAgICAgICAg UTCkWHHjDJUhPRAsNRQiVTZzCYRpHGAbBCBqRYJbABSdRXUjSCMqQP2SRDKnTXDhTFJfCBCqYQHnNDIz ICAgICAgICAgICAgICAgICAgICAgICAgICAgICAgICAgICAgICAgICAgICAgICAgICAgICAgICAgICAg BRCoCXApOYFiTIEdTFOrQBRoWJOmHL7HWIKrAHPuAQ AgICAgICAgICAgICAgICAgICAgICAgICAgICAgICAgICAgICAgICAgICAgICAgICAgICAgICAgICAgIC DfUOTnUNNfTTBvBQOlYBAmRPQjIMLlPCEnYMSeVLVaVB2NMHNaCWIwPJBgBTVrVTMoYFWpJOCcZBJlIG AgICAgICAgICAgICAgICAgICAgICAgICAgICAgICAg IVOjRTRhJJAlVNHsIWUcWPToCKXdARSnLDFaQRQpMCWcHFBbGRKxPAPtTB1BNGHxSSRlQWFxHYZpHWGe ICAgICAgICAgICAgICAgICAgICAgICAgICAgICAgICAgICAgICAgICAgICAgICAgICAgICAgICAgICAg FNWsMDCqUSKwERVgXVKoNOZaMYQfZPEpEM5FOLSkRX AgICAgICAgICAgICAgICAgICAgICAgICAgICAgICAgICAgICAgICAgICAgICAgICAgICAgICAgICAgIC AvPOPrGGCiAZLcZGAxPBGuKAWtCLPnFJCeMZRhLSArEIVgHD6KUBInAEWuZODoEUBhFDHxLWPlUWWhPS AgICAgICAgICAgICAgICAgICAgICAgICAgICAgICAg URAeHOYmUCLoZOGgJVZaHGRrGNWvDKHoRJGuGEVwVXYhTHMeRNItUVZjWHAsLG7FQNIkBOEdIKOqCNBa ICAgICAgICAgICAgICAgICAgICAgICAgICAgICAgICAgICAgICAgICAgICAgICAgICAgICAgICAgICAg PXEaQHVyUMCaTKAeQGCjUGVeEMHxSBBxUQIpZO8HRP 98hZNcq7S7ROQcNH9ivyd/Gi0BDQjmbsRspGOqIU6TYsPrOO2ufh6ZUuRcFC3mwb5UXHfDJwOpR7U7jF SkXWEdRHVFGeXuW82jMNihZj57IAizWOKbSwNfSFi5Qs4BEsZfM0esGCAcFlF6WAZxRgO5DLHjFyZ2PA HcXsHuCUEiAWMgEDSyMXUQBV4PXzGxS8XziY39CTDY Cj4+WGcgmlAePfgVKaEkMZYzz3ItPFq1QF6BDGYoObnfz0MeWdAoBEEHALpqQA3GPBN3JXSaVEIiBr3G ZSFhO381iaYpJD3JVo0GZjUyXV5qzv6DFgQhIIBpVqjNLgi9CCmzKO5BxWGzNZwQsx2fnmDhfxPIe8Gu wrKstSKKKTHdETRBCWQpn2bgeOSlFXISKFXdgYY0Ck XvVuHwYoXmRCg6YAIoKA8jHXygQH1QSOH3NMbnPFAjJESaZ2lJMvMwUPXfVGMxmMndCC2XGcEzT4Bcje VudCAzMSAwIFINCj4+BAfqfjYeLcgPZdXlWZYbw8PhQHl1HK9BUCVlSAgoPN0LVJGgqO5sJAbzAN3YJs EvKHHyQFGNRlJtT23tcJTeTEw1Z6LtKrXoGWIuEjwq ZXMgPDwvTmFtZXMgWyBdDQogID4+ID4+SDofAN8CTCavyeZbPOBoXu2KYPIlGRZbAR1rXUDpMBRjR3F2 dXmvBJYCUeWgX6wfkbnqVB5iPNSeW754iVnosjQwIPEkGPAzAv4YUAYrXNZ4UQWnqFDoXpRtNTAYBFsb TQ2DxTIgZFE3qJ8dGHlrLOCiBDImS5tBWvJwiZacEX 51bGwgbnVsbCBdDQo+Xv8ASI8rj5CwABo3peNbXYftRXD9IIkpNKCwQFPmERQhKEC2MZS1AZSZHwJwXK GfXFOhWZuxCLOrGNUrtr4WIDLbLKL9UREuZXZdFUHeOREaVIrbBLAwIKksSBy1UKPbYUJyRW7ZIoCpAK LfWHLyYRopYDMqWUKoru2KRAPgZOExTFovAeLdWZBr JVZxECvuNXFqAWT6ZDGyXKVzSUXcYV6SMiLuOITqVMc1HEXnYZLqSHUmzo3OLGEhRAShYBlmFPZiJLRf RWOqOUbqKJObRZVkRaH0RCVcGZQhOL5LLjScJSDfBDH6UEIjUDMbSMFynt8CWQDzHQJoMcHrZMSlUVGj DCSlACmxLMTdHVQ2ZUDlVTGgAUUiLA7GMlPtQMYqFG b4YBMgRHFmNMLrfx7UNADeWSJrAAW7QeEaENSaOIPuTWapTAKtEBSkINZxUTBpCGOmLE8ZVfVgDWDxYl YmJWlgPMAgAROgdm3LDJNxRQMkWDQsPqTbBHBaUDWjVQdaHVMbOJAeUspfDMHjFWSbXA4ZZrPwSZEwXd P2EMCdTPRpTSJlqn3RDRRaWOQwGVk8TKSaGFUcPBDd CPbeKNCwCOUsEaTiGDGaOLXeQE5GHnIpRNZsSpH1GnTzJYDrRDZqcf8NUWBrKQPgLiz1ZAVpHFPsVGPp ALefJMXrBGUnLNy6LAHxTVDoPQ7FRwXnUSXiNaOcATKdTGJfGRMgfx5KHCDiIOYrRKM6PmBoGFBxNSZy UMfqPKWgWAS4RGF1RUBvGMJfTX7GJcVvQQIqCUk6Vi zyTSAlXSEqse9PQOLaXQY8UPP8EjVjUUKcSIBbCAaqEBGtQCG8GsS0MAGcULAaSX5WZvShFYCrObWvWQ ycKVTlMMKdly4NMJDrXFD0MNR1XCJuTSXnSDKqXXioKYFqMIljHBPcPJCnGRIhRZ0TXfYqVCdyOCZJYu q4OYajL7h7LBYjXT8QU0Hwm9OsAnYvRXQXWEahMH3g eqNtAQScPr8RJ4vQTmc0NFwoGoVhQil8XVQ6BdN4QET4CSJnOPB8ZbPsBSOtLI4kUDNnRIKkY2UoZTJ8 CInrXgblWRCgEGO1XvevO4BoAWJ0QzHvFW0TBa4VWyL7DPP2pQQfBh5WLlL0GEIQBeXxIW5LDKj= ID Date Data Source [id number] 05/05/2020 01:43:20 PM EDT [facility] Name Value Range Interpretation Code Description Data Fide rce(s) Supporting Document(s) Progress Note [facility] WQRGPb9mVrUBFaQz71/SLFrsWDZwz1GkBXzxGFk4RQkqRFLmQ4PyLZI3kB2cUFR6ATcQIiGsHhWdKwV6 lbm [file] ICAgICAgICAgICAgICAgICAgICAgICAgICAgICAgICAgICAgICAgICAgICAgICAgICAgICAgICAgICAg ICAgICAgICAgICAgICAgICAgICAgICAgICAgICAgICAgICAgDQogICAgICAgICAgICAgICAgICAgICAg ICAgICAgICAgICAgICAgICAgICAgICAgICAgICAgIC AgICAgICAgICAgICAgICAgICAgICAgICAgICAgICAgICAgICAgICAgICAgICAgDQogICAgICAgICAgIC AgICAgICAgICAgICAgICAgICAgICAgICAgICAgICAgICAgICAgICAgICAgICAgICAgICAgICAgICAgIC AgICAgICAgICAgICAgICAgICAgICAgICAgICAgDQog ICAgICAgICAgICAgICAgICAgICAgICAgICAgICAgICAgICAgICAgICAgICAgICAgICAgICAgICAgICAg ICAgICAgICAgICAgICAgICAgICAgICAgICAgICAgICAgICAgICAgDQogICAgICAgICAgICAgICAgICAg ICAgICAgICAgICAgICAgICAgICAgICAgICAgICAgIC AgICAgICAgICAgICAgICAgICAgICAgICAgICAgICAgICAgICAgICAgICAgICAgICAgDQogICAgICAgIC AgICAgICAgICAgICAgICAgICAgICAgICAgICAgICAgICAgICAgICAgICAgICAgICAgICAgICAgICAgIC AgICAgICAgICAgICAgICAgICAgICAgICAgICAgICAg DQogICAgICAgICAgICAgICAgICAgICAgICAgICAgICAgICAgICAgICAgICAgICAgICAgICAgICAgICAg ICAgICAgICAgICAgICAgICAgICAgICAgICAgICAgICAgICAgICAgICAgDQogICAgICAgICAgICAgICAg ICAgICAgICAgICAgICAgICAgICAgICAgICAgICAgIC AgICAgICAgICAgICAgICAgICAgICAgICAgICAgICAgICAgICAgICAgICAgICAgICAgICAgDQogICAgIC AgICAgICAgICAgICAgICAgICAgICAgICAgICAgICAgICAgICAgICAgICAgICAgICAgICAgICAgICAgIC AgICAgICAgICAgICAgICAgICAgICAgICAgICAgICAg ICAgDQogICAgICAgICAgICAgICAgICAgICAgICAgICAgICAgICAgICAgICAgICAgICAgICAgICAgICAg JZYiKGCvEVAgVUUcVWJgONRoVSGlRRZmKMMyZQOpDHWgUNJmTEXaLEGvIENwSLh4K7tnUBRmETNpYU8f CZa4Js2+NLnGLiBkCIS1vdEacO0CHK0mx9ClMKcpDH Bon5WyNFv6ZQ8HEPKoUEqbTD6EAPhlsv0IMFPrYGWruHHMv9wwFbWfXUY7JFEzCxzgEN4AZASdD1mejl PbFIYtQMOWKB7ZXiYrP3AiqM94YPFSGv4+NRgkdjHzEsoYSeA1MTAtb9UyAUz9TN1VWGLbImvlb3JjIi IsTLSMFIggDI6FWFT0GOUbXULjHz2KLDTtQ797sjIt BA9IYm8BEkJpTU7wlx8DHtMuKXQsNbgIRqm1OCowCJ9IbTUrIIdZhu5cgsRasrTAe1IlhrKwhNCZPL3j GwXdraNsvA2pPN4NHQH5XAhwDy7nKYFlFCO1ZhVzYORJGD9HQXKsZVJggRLdAGZmWDSUCS4RFEckZDC7 AVEahvAmzUDvYVzvDV4CNKVdhhMmHFdiKJXZLQu+Pg 2MMQ4jg4YgDTudBNMoZD4azp5WNAtLFhWpW3F4qNBvZ8J2WPvlSl3ANTCnSYKrVTqvWMQIGNxtIX4HNT 3glrP8YK1UeBZiRPAnAWLynLCvKIs5I87zrYPuZDewUC4HHDH+Gerardo+Zv4OWDPgVRKoLWKlAaBtEKTLDh SlN7MrL5DBd5RlO3LwML15uFuiwxLtPAyjFX8DGQ1w DXShHZKTEZ4KuUZqpA6mvdTlTCYdVKZHLePeE15idJXoWXSkOCM3MLSyVa0BKQDpP1AfwlYczVjlznFw UXVoCWRQTS9BASctbcQqaOYosLgiRI55xEdlVW1XMx7QIaQwBI0emv1PjLQqLi1WLWBkXr6GFZQlFCTw LQVqQTZ6RZCqUhGhLUuhHJDbDGZgVDE8VLEjSERtMU 9CBpTuWYYtOZQ6YMBgCEKxYIMpxt4GOIVrDXSpPVBwIqQvDUYaAZDvUDzwKLTjSGRyBFY1MJGdOWCeYY 5OSoQhCPVzNGZ4ZGRrBDOiFJChwj4KJOHiBDYsWWu8BMFwNXDkDWDsNHyvMVUpXGQuLSMsTELfECLhBE 1WNtPxYHZsQBOeFCeeBTYdQTWeyg4GGJWmVNKkPnG8 PLXmDFFtPALjYKqrPAXhZMJ8GqW2PACdIJJhAG8EQeKpDBKlSBE6FnvrWFUiFKTvlm9RCJCuBDYoDCQf UbPgBIMuZKNzIQkrGHJfMKC3FOndFCWvQFLuVF6BGrQzXSFlKWAbZNmaPJNqAMJlud4CPFXaZFLfSpCh HrFuUTAqAPTyIBmuARQpCHV4XnZ0VZKfNNVfDO1EXw YsOQTiNUY2KLLwKHGhFPPemi7WNQKqTQXmLvQ1QdYbVEYwRPMuYTywVPKpNGO0XmFkFONtFTQuZP5GAu MvLCKsJFl5IWKwNPNkYYOrwl3NEHXuLCQgSXt9PbMlMRWeXUJbSBt1pvHygRPiYBe0SO2HA4YwctJhFs KAKi8Iw552OIQlFRFuIb5ZR3zrIj7lMTQvKLHLFk6I CVl6NIu7PDS4ZZB0FQGgIIM9UaOjMxSbP3A8IUsuLaHyEWB+WQf5SSpdOGf1EzGzYrPqBAVoQGA8JrPy YkRhRBUvZ6KrOy3fEFMMBt9+PEngcXIkbDtyZLNMCmT0QEjkKWpcHSCSLe9J ID Date Data Source [id number] 04/10/2020 11:26:31 AM EDT [facility] Name Value Range Interpretation Code Description Data Fide rce(s) Supporting Document(s) Progress Note [facility] PYEYPz1qLzXDKjBk80/QRYtaEOCpi5IfUHmaBKx8YQozWDPtA8LrMWG1zV6zXOS1QMmXQfBsBoDaQeOf lbm [file] /9eOxh/Qi9+zayas+q/CeuBQDjfM+rxac/h6fAj0dglAI 642zZhyve3LLQBxe8HR93/Zlzet2Opo5NvG74rbrLtUos7iUWYcC/RnugnE3gWzguBd/F1mRE1LSl59o 7iMcwddZAQbmijdLRrKXGcROp55tUDKtW4XodF9DW68VtMJjBXCi3rZPsjWndPFIPhRuY12qKC3aAozJ fPMx6CVLPVGOFod+Lc6Ni4kMpksUnEoxRPqW8wwxzD 1sPps+Qc0SVAt/kJWh3SjSP/SJRfoL7MvqhYzFYtQb/PVeM5DPu8DFjlLpqeNX/ZOGbx9hfXPqPeySbI N5UwEelSrmr8RPegbJvz2AkFb5rrvsViv+6n9wM0ev691sR6Pnv9Z3k4ydMcKNvxKLFENA85mSJec0Rf s8pUYsezbAfwKm0/dwde9vE0n0Tjflzui2ssdm6t4Q 1e7/yJXnUQlXvH21ESZUzvXwvb3+dKJR1ZLH5ijGqkcMo1QVsQqXEG05I9xVksOfI0s7WWzDiTwwVygS Nrjc0AEjP7eyTBl4UMd3lL0fME1uFTVstqUEXEtiQDfW9yRY4TLkLeonX33h851fRNIubLlte0lIde7O md18lRpIMpL9q3ZARZzilzoDlyPsYdpdFShK3xyJYR OBeKz4eJNGOJo3LHMuFT5VuQa4bP5gUjG/uoeHA5KGFe5+IFVVv7+5Czqj2w8i1tx792OK2CWV24qmJa Spaglu6ELnZ5ebhg9NeUGMwC63uAjfWoWK0dLqlWevzTa38/6x8Oax8jzFsw5zg6Xa+2OKIalkYPWtuj DU0/tGvbfWTha7TyIjJobZKnlvTAZlXFdZEUS86+C3 eVBOK7eZvdyifCDZW2MNbHGu7fcJB3ErEBHporyXlWHyrNou3Qj0NODVKhnFbCcCB0lAvVEI48IE6/jh sgyMieSUQPhrbPytkseugtEYkNO71v+Ct8z0VyMwi8R/RAoCpD5gDOrVGig7nb3oOxq//5h7qoxUScMc PGYsnCx3jUx+HTy8iXF1HCAIDXG72LM0g4v5IPnNIg jQmClg6SbalMxXtxbdnX9GSWKkD7BZs2UCYXrWhI8nbqPZpEWOj+KEfoL+qr9+9aFZP9LvTeu5ofzV7s 4A/VvW/Ef8AkBxX3cpede6Oc37+AKPcMHnJZvAXP08KmKrcQrg1v+5MAbGCO/FF7Fnh4RXk+wF5PRTzI Y/+86r+MdPsLF2PG8FU/VIGRHwbM/k3JE6yb1/KDD8 yxb/nBB+bYt/vcG1L2FNX41gxffXsNYEr8il7GzW/wxw3KbS/lke3YfR/nnt0W7DPZWfQEQENsrtPxl7 WlK3UhP45irVn2CR/5jKr6od94YIjz4t94/FgUOPmhwUz/pVN39mf+uSG79sx+zWB66fy+sIEpfmRxtS 62/CLFAk5OCBcQCf8fb60rFa+YY9/ygw/cap maker/5wQem [file] Vjv8q/r+DyoYNq56C1DLLERPAb17aRl4czXqya [file] ICAgICAgICAgICAgICAgICAgICAgICAgICAgICAgIC AgICAgICAgICAgICAgICAgICAgICAgICAgICAgICAgICAgICAgICAgICANCiAgICAgICAgICAgICAgIC AgICAgICAgICAgICAgICAgICAgICAgICAgICAgICAgICAgICAgICAgICAgICAgICAgICAgICAgICAgIC AgICAgICAgICAgICAgICAgICAgICAgICANCiAgICAg ICAgICAgICAgICAgICAgICAgICAgICAgICAgICAgICAgICAgICAgICAgICAgICAgICAgICAgICAgICAg ICAgICAgICAgICAgICAgICAgICAgICAgICAgICAgICAgICANCiAgICAgICAgICAgICAgICAgICAgICAg ICAgICAgICAgICAgICAgICAgICAgICAgICAgICAgIC AgICAgICAgICAgICAgICAgICAgICAgICAgICAgICAgICAgICAgICAgICAgICANCiAgICAgICAgICAgIC AgICAgICAgICAgICAgICAgICAgICAgICAgICAgICAgICAgICAgICAgICAgICAgICAgICAgICAgICAgIC AgICAgICAgICAgICAgICAgICAgICAgICAgICANCiAg ICAgICAgICAgICAgICAgICAgICAgICAgICAgICAgICAgICAgICAgICAgICAgICAgICAgICAgICAgICAg ICAgICAgICAgICAgICAgICAgICAgICAgICAgICAgICAgICAgICANCiAgICAgICAgICAgICAgICAgICAg ICAgICAgICAgICAgICAgICAgICAgICAgICAgICAgIC AgICAgICAgICAgICAgICAgICAgICAgICAgICAgICAgICAgICAgICAgICAgICAgICANCiAgICAgICAgIC AgICAgICAgICAgICAgICAgICAgICAgICAgICAgICAgICAgICAgICAgICAgICAgICAgICAgICAgICAgIC AgICAgICAgICAgICAgICAgICAgICAgICAgICAgICAN CiAgICAgICAgICAgICAgICAgICAgICAgICAgICAgICAgICAgICAgICAgICAgICAgICAgICAgICAgICAg ICAgICAgICAgICAgICAgICAgICAgICAgICAgICAgICAgICAgICAgICANCiAgICAgICAgICAgICAgICAg ICAgICAgICAgICAgICAgICAgICAgICAgICAgICAgIC AgICAgICAgICAgICAgICAgICAgICAgICAgICAgICAgICAgICAgICAgICAgICAgICAgICANCjw/eHBhY2 jocRPnreZ0U9nbYj5QCn8XSY2bo8ZfIQHoHLktefFlGpoWSlNfBESgDldGGcz1CKijOY6JyMOwA3CuN1 JiDAcfKD1YJFSoRKKifHMiQLQcOFNhDvS0XSZlEZmp LX0FiADcITjbMIHkMMSvWeWqYDDdFVNeYTXbOLQgSNTTPZLtPDImOyBrCHpbGU4Us8TgjCY6FEi+Pg0K BG1eu5IlMHilLNMpFS0ian7JAMmKZzQbG0JermQ1RULvVMViLt1MGXVxEVXsjWFkSpWhHJEQLpQnD8Km aL93JMGIVl7+YParblUaXaoIWwCsSLFqg6JhGRt3DG 3GYERcVYe8aLDrIESpK0Gwa8SyLm52SZZqHsipODV8heLdLdOIIH9vBPY9tBnmHwCjHNIcOx0fFvYhFo QyZEf1NsMvBN4qTSckBS1WHLN3GKujHMEfTCZvC6jMZwOgESDdGKTtfJqfOH7PPwTfA4LphlNdaOIoUO AwIFINCj4+AZhrdfIeLibLMrYwHJYzr1ReAMd0CZ9L YUQrUVykUD4IYJJjrA8pRBreLU3KMiUjPBDpEFDQDwDxX01bzSPtMXt9P3JxCnJlJMMlOnhyCOZqEJcn TmFtZXMgWyBdDQogID4+ID4+QSrbWE5NDLqlkpTzPPLxQi3JTNRaTHEsCR8cOZKgBINnP6C1wSqbZXGY ZqFlO8jviyqjGW2mJSMlI508sFunuuJxTCDgQUXwDt 6CFANqKAR4QZRyhGCuJeBaPNLZHTnqIJ5KfZCjQQH3qC9dVOggQNMmWACsC2qXZsVwaOuyWU14lFmmkf VsbCBdDQo+Eq0NSC7if1AuBWk1dgMiJUeiSID0CHmwDAIkJMBpZUEtUTZ0WQZ2KMZDByTbQTXgNAMfBS pfBYQfYPAcbv2CPOZaZYK2NGQ0YYAkLAKbVDSvONwq DCJsKChkKCA3FSWjLTOxZA0PNdDyBSLkIHSbTOviFMXvUABopk2WVYEjQIWxULb0LzNvPXUhXACjDCwm KJSeQAM7UCS4ZTOeIWZlIJ8NXfPeYDCcURh3JbZqBRJtVZBblr9VDWWdDPRhBEtxUOSiKLXlQGHzNXyo KNSqHHWbSGntAVQfNWPwHJ6AWnUiYMRgWFD8UXFtJK RcFATdrd9IJEPtNGAgIhl9KYNlWNDbQAZiTPnlKHWzMBA5SWvmMXNwRSNlBI9ZPwOtKGYbQSh0HXXoJR FsYNXjjx4BTMJvWFUnKXC0CvXtBTYjAWYaNEbbWQOsKTAkQPV1XARpSVHbPC9IOfNhWLHjEbMvWNWxDX MfBIUxew2HHQMaRQWhOIV8ZzChKOOkFDSxMUtgKYZn CASlEQC7QNXkUCIcLG4SAtUePMEkTzJ2NFowSWTvFJPtqu8LZPXvYTSoSYorJuNsSEQsTMCqTAmoFLXa RVGbFrY6KGWeVXBfZU2BKhIiCVKpEjR7VXLlIMKoAQZbgj8ROWZhEGZkMqymKWRiMFGjMYTvGFciRPTj OJF7OMQiVZAoQIGhWC3KNxWoBTIwViAgBLJzRNFyBE Cmge4AGANgMGSgVKQmQsFrOUKhUITeAWusFWPcWPO1AlF1IHAmHKBuOG5KXcEnVALrTCn7CWGcMDJeUO Eieu3AJJNiKWQ5RNU3KzMmVNFsWQJkGCdxJRWxFXL5MRP9OYXhQATsQV8DSvTpUYQcNmVpWpIqOSSrXT Sbig8HLURjZCA7YZD8TJKvKRTnBLYsEFkkJBAbPNjq CMj3XKKhRFZoMF5RPiYpAMtvLUNNAjw7YKreH2l7SMJvLV3KT1Xoy4VxPhHaGUCTDFveJO9zzwCvXSJu Aj4RN9zTYxy5TkWvTSMjWje0XyQ5CAN7UKAuBjb9Jng5VXWgK1B0Nt4bJPaxVrOgMcMaBZmqCJLiMafc SXPgRLdzKHGtPAV2Wfg2JaTaHA2YQi5EEtS8YWG0lGJiCv2WVzG8OzjDUnNjGJ9JGWs= ID Date Data Source [id number] 04/10/2020 11:15:00 AM EDT [facility] Name Value Range Interpretation Code Description Data Fide rce(s) Supporting Document(s) SODIUM 136 MEQ/L 135-145 N [facility] POTASSIUM 4.8 MEQ/L 3.5-5.3 [facility] CHLORIDE 99 MEQ/L 94-110 [facility] CARBON DIOXIDE 29 MEQ/L 22-33 N [facility] ANION GAP 13 5-16 N [facility] BLOOD UREA NITRO 25 MG/DL 7-25 N [facility] CREATININE 3.8 MG/DL 0.6-1.4 [facility] GFR 16.0 ML/MIN [facility] Stage G4 - Severely decreased kidney fu nction The GFR is an estimate of the Glomerular Filtration Rate. It is an aid to assess a patient's renal function. It is not a conclusive diagnosis of kidney disease. GFR normal is >=90 The MDRD GFR calculation is considered valid between the ages of 18 and 75 years only. BUN/CREAT RATIO 6 8-36 L [facility] GLUCOSE 110 MG/DL 70-100 H [facility] CA 9.5 MG/DL 8.7-10.5 N [facility] BILIRUBIN,TOTAL 0.6 MG/DL 0.1-1.3 N [facility] AST 33 U/L 5-40 N [facility] ALT 20 U/L 5-48 N [facility] ALKALINE PHOSPHATASE 104 U/L 40-140 [facility] TOTAL PROTEIN 6.3 G/DL 5.9-8.3 N [facility] ALBUMIN 4.3 G/DL 3.0-5.1 [facility] GLOBULIN 2.0 G/DL 1.5-3.5 [facility] ALB/GLOB RATIO 2.2 G/DL 1.0-3.0 [facility] ID Date Data Source [id number] 04/10/2020 11:15:00 AM [facility] Name Value Range Interpretation Code Description Data Fide rce(s) Supporting Document(s) LACTATE DEHYDROGENASE 228 U/L 125-275 N [facility] ealt ID Date Data Source [id number] 04/10/2020 11:15:00 AM [facility] Name Value Range Interpretation Code Description Data Fide rce(s) Supporting Document(s) FREE T4 (FREE THYROXINE) 1.37 NG/DL 0.76-1.78 N [facility] ID Date Data Source [id number] 04/10/2020 11:15:00 AM [facility] Name Value Range Interpretation Code Description Data Fide rce(s) Supporting Document(s) TSH 0.471 uIU/ML 0.470-4.200 [facility] Patients should not be tested for 70 ho urs post fluorescein dye angiography. A false depression of result may occur. ID Date Data Source [id number] 03/30/2020 01:55:58 PM [facility] Name Value Range Interpretation Code Description Data Fide rce(s) Supporting Document(s) Progress Note [facility] ANNWFf4zFxPYTuNi77/NHKlxANAsh8KiSYumPRr1LAnzJGSiL5TfEOX3pT9rYJW6BQwWTxLuUbLpXhUk lbm [file] CNKmJsZ4PFM2VEWfUkCzJwVtUpY+DU3wFYt+Iv3Yr3XpeqL2yrGeWStfLKE9UL6GIGLKR6IABh== ID Date Data Source [id number] 03/30/2020 01:55:53 PM EDT [facility] Name Value Range Interpretation Code Description Data Fide rce(s) Supporting Document(s) Progress Note [facility] TLQZGl2eRqPKIiMe42/IQFatMRGya4LlTEmhVQq2FLbrPAOlZ9FwFHK7bO4mEEH1PEvXYzMnCxHwOwVq lbm [file] NnUIsDGzm1d/r+HjfOMc79X7GWZNFWMq22xAp7 [file] 8i5SNXcnW8aqNDCurLf10uocXNaBTbEwwMNaf9+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 [file] AgICAgICAgICAgICAgICAgICAgICAgICAgICAgICAg ICAgICAgICAgICAgICAgICAgICAgICAgICAgICAgICAgICAgICAgICAgICAgICANCiAgICAgICAgICAg ICAgICAgICAgICAgICAgICAgICAgICAgICAgICAgICAgICAgICAgICAgICAgICAgICAgICAgICAgICAg ICAgICAgICAgICAgICAgICAgICAgICAgICAgICANCi AgICAgICAgICAgICAgICAgICAgICAgICAgICAgICAgICAgICAgICAgICAgICAgICAgICAgICAgICAgIC AgICAgICAgICAgICAgICAgICAgICAgICAgICAgICAgICAgICAgICANCiAgICAgICAgICAgICAgICAgIC AgICAgICAgICAgICAgICAgICAgICAgICAgICAgICAg ICAgICAgICAgICAgICAgICAgICAgICAgICAgICAgICAgICAgICAgICAgICAgICAgICANCiAgICAgICAg ICAgICAgICAgICAgICAgICAgICAgICAgICAgICAgICAgICAgICAgICAgICAgICAgICAgICAgICAgICAg ICAgICAgICAgICAgICAgICAgICAgICAgICAgICAgIC ANCiAgICAgICAgICAgICAgICAgICAgICAgICAgICAgICAgICAgICAgICAgICAgICAgICAgICAgICAgIC AgICAgICAgICAgICAgICAgICAgICAgICAgICAgICAgICAgICAgICAgICANCiAgICAgICAgICAgICAgIC AgICAgICAgICAgICAgICAgICAgICAgICAgICAgICAg ICAgICAgICAgICAgICAgICAgICAgICAgICAgICAgICAgICAgICAgICAgICAgICAgICAgICANCiAgICAg ICAgICAgICAgICAgICAgICAgICAgICAgICAgICAgICAgICAgICAgICAgICAgICAgICAgICAgICAgICAg ICAgICAgICAgICAgICAgICAgICAgICAgICAgICAgIC AgICANCiAgICAgICAgICAgICAgICAgICAgICAgICAgICAgICAgICAgICAgICAgICAgICAgICAgICAgIC AgICAgICAgICAgICAgICAgICAgICAgICAgICAgICAgICAgICAgICAgICAgICANCiAgICAgICAgICAgIC AgICAgICAgICAgICAgICAgICAgICAgICAgICAgICAg ICAgICAgICAgICAgICAgICAgICAgICAgICAgICAgICAgICAgICAgICAgICAgICAgICAgICAgICANCjw/ yJJpG4bgrVZevpV0D1nbPt3UYd2SOP3hj7OtDXDzZPljucLpYjpXNrAdTMUdEqcAFga1QBuqLS6RiCTo U0GsX5IkDHgqOY3DTLPlIJLbzHJxNKCkHPAuKhZ9DB WkDDxwSV7BuLUeBIbgLQEdEEBqZoNmHGMbRHUsEBQmOSMwHMEJRTByYSIhJuMrGIpwBS4Oy1SjfHS7OD o+Hf0HUF1sg7BqNViiFSBjWJ1jwf0AXOnREyEwT5DekvD8ZKGtNWFsQl9WBHLfIXEpiEWfRoQwOXNUSn WuV2RmvQ23XJCULs8+DVzndkAmPjwGScWeVQEmk3Om TAy8QG5UCIRgDCv8zIGhBAZjX1Ysx8DuHi56KDMfDmugMRGlODdnPRvpP8MoyIJkyNW7LNMPVMCuqNP9 CmIfPcYrBUXnZDivMBHQPJcXCjIeK0Smg4VnIwS4AODbRzBfQPabEECrBnQ1AK00iNinVK6MTFAbYACa HM22XAXvEUVjOg7MJj5YQoNeTP9bhj7MKiTbRYMnKf hROow4RTyuEC3EpMVjH3TmrDQhq5gDNxQoB4MJNPB8SOVeVp8AFMLsTaJsEIKpMHvyTZ3gEBNfEPJSiD dulyU5UX0SJC5doiFpSJ0TWrDoVf2rOc9CEpOxZ5NqZ4RgTGFzEOBOGFgiAJ3UCNciMF9oQL5Dt0ZZdF RajN7mji0YRFDaGUUgOpecmi9ZLbmxX3B1zEnkFSZa YrCjEZMJSXvdLQ9ZSJEwFCK5SGAhQRFkRIGTQmDxP64vYW1FJ8Qfd81iKnZ3VFHfDhAeHAymVI13mWgj ejLmuPBcjVskKU4EIx5+CFsfvyVxWmhSRsvlOGXCNfHtPmDBZjEjUPWlGMOoNSRxEbI2AkOzNf6WUZQm IKPdAXQwVkPzIYJkUJEsRJufSUYmXVL7WCJrYTGgJB RnGO4MLwKgAWOhZdD7VRvlKKOvOKVzha0DYWXnFWZkXUB8XaWjPAMdLMEdXHynHTQdJAR5CbYsDZUkFA YtWN8UEzXzDIOwIVF7OfJzQRVeZVUcdl5ONPSkXAXzTYGhSYOpSYFzPFQdCYhuKVLvHRB9KLT5CFQtDJ YiMC8RQxMqKQWoZYA4VGTvWVZsMGHddg8SMHFpJGZz CkZjARHaWEZpQTDvGYxrYMJjXXZ7ShD9EOMjKUYbMS2VXlUjISQkFGG7AkVfWBZxIKTkhk5UNUXyTXQp WFNaDHBvHPDjDIMpSDhzPVPbHJB9WhM4UUWrUKQhOM8FBgZsUKPmKrY6HgNnHLEmSGZaek5DQGWrSXBz JEl7YqRwSHJoHAUvXDleEJQdITQnHAG3BTUlETKyGN 3NZkGuEBHdIiQ0DBWsXDFoWEKcgo2LRYYfFBJeToKlIjKcZFXkYXZiBGdzIAQrBZLqYos1UBDoKKQbBH 0TMjEwVJCfPnO4QrAyUUSeHRItgz4UKVZsJDZuBIK6ZWOrHAPxDYEfXVwqOUEfFAV2TlC6BMXfUQBrVQ 2HUyJiXITkBwR5YSmiDYDfLSYypz4CUTCkVGFvRSA5 YAGwEIQlAWYpPReyBFQjNUW9FNkfMGNxXBMuZW3UCnIlJGZtHYmjSkGdXYXzNDPgej9KNBFcYKZ9PYX4 EyCxPWBqIPOpQZmhURKpWPB3ZFPcUXOcASNfXB3BMvVoCLXlJtIjDgcgSMRvNHImff9SVFInZIR2HMyv YcCkREOzHIHxIUegUNPbVMtyRQVkGQCwXNJkQN0ULm WnEXBlRgP7IIWiCNWcRRKniy0GbWItgZounf1JWAhUPc2SkLumEQQ6UKonVa3zpQQpOrHlRJCSDx1Eex LbKCTyNZVKGWybNYWyKIB3MkRrVrSyNJOxKzKkKTZ0JCNmWZBkOETaNeXuVOGvErA4GzBcYqJfRgIeGL H3WxXbUWPvCZTqPDRnRKZsLHL6FNU+TL3iUIs+Sn6Eo2UmdjG4sbWkEOb6SeU6FD2AYWKKE1MDGo== ID Date Data Source [id number] 03/13/2020 07:28:22 AM EDT [facility] Name Value Range Interpretation Code Description Data Fide rce(s) Supporting Document(s) Discharge Summary [facility] WXQBZz1wXtMBRbXn72/BMImhRXHdf5MrXEgnMBe8QDxtGANcX4GbNKX2lT4dBCX3BRuWYeHiFpFhTiV8 lbm [file] GFsnqMJ6WdX9GcWALK3+victor hugo/tSx1HxZ6ErPZEuE8l4 [file] ICAgICAgICAgICAgICAgICAgICAgICAgICAgICAgIC AgICAgICAgICAgICAgICAgICAgICAgICAgICAgICAgICAgICAgICAgICAgICANCiAgICAgICAgICAgIC AgICAgICAgICAgICAgICAgICAgICAgICAgICAgICAgICAgICAgICAgICAgICAgICAgICAgICAgICAgIC AgICAgICAgICAgICAgICAgICAgICAgICAgICANCiAg ICAgICAgICAgICAgICAgICAgICAgICAgICAgICAgICAgICAgICAgICAgICAgICAgICAgICAgICAgICAg ICAgICAgICAgICAgICAgICAgICAgICAgICAgICAgICAgICAgICANCiAgICAgICAgICAgICAgICAgICAg ICAgICAgICAgICAgICAgICAgICAgICAgICAgICAgIC AgICAgICAgICAgICAgICAgICAgICAgICAgICAgICAgICAgICAgICAgICAgICAgICANCiAgICAgICAgIC AgICAgICAgICAgICAgICAgICAgICAgICAgICAgICAgICAgICAgICAgICAgICAgICAgICAgICAgICAgIC AgICAgICAgICAgICAgICAgICAgICAgICAgICAgICAN CiAgICAgICAgICAgICAgICAgICAgICAgICAgICAgICAgICAgICAgICAgICAgICAgICAgICAgICAgICAg ICAgICAgICAgICAgICAgICAgICAgICAgICAgICAgICAgICAgICAgICANCiAgICAgICAgICAgICAgICAg ICAgICAgICAgICAgICAgICAgICAgICAgICAgICAgIC AgICAgICAgICAgICAgICAgICAgICAgICAgICAgICAgICAgICAgICAgICAgICAgICAgICANCiAgICAgIC AgICAgICAgICAgICAgICAgICAgICAgICAgICAgICAgICAgICAgICAgICAgICAgICAgICAgICAgICAgIC AgICAgICAgICAgICAgICAgICAgICAgICAgICAgICAg ICANCiAgICAgICAgICAgICAgICAgICAgICAgICAgICAgICAgICAgICAgICAgICAgICAgICAgICAgICAg ICAgICAgICAgICAgICAgICAgICAgICAgICAgICAgICAgICAgICAgICAgICANCiAgICAgICAgICAgICAg ICAgICAgICAgICAgICAgICAgICAgICAgICAgICAgIC AgICAgICAgICAgICAgICAgICAgICAgICAgICAgICAgICAgICAgICAgICAgICAgICAgICAgICANCjw/eH QrQ8xxnWYiedE1V8gnGx9YXs4PBJ3dr3QhYSNcUEblviLaCofUTlNuMNHaVdqBHby6NXgiMY3GySYqK6 KeM7SaPFtkEM7TASGfJXFrzMVlBDBzEENhFkW0LRFd SEfaUT4XcVEnEOenKGIbJMClZuEtCWFjPDQcMGGmGAEkOVJWOKBiEUIrTnJaDYNkYTRpPItyDTZHGYS1 AHWyYvOdECcxHD1Dg6OntXL3YVk+Fy5AYQ8pw4IwHUrtDHOaTX5exg4SLWiNRbOeZ8NwfkM8OQKgOCCc Bc8DTDKvCZJuvCEeLtIeAQSDZiXfN0NrzJ04CCLBHk 4+QLohauMiIccWCpFfMRAec7IqIEm3RG6PLPDiWAj3gTHgYNkrT8kqivkcVWZ3hR7ksursRrnxLzMvKI 4kXMSSoFWyU9imdIxqDNKfYQUgQp8pSxQkOlBqXJo7JAFwSO7qKGmiDX3LOCM3NTxyJRWkZKOoJ0zOWn NrXNBjMCHyeNitSD6HQaYyY9HilzPbvKQxKAHaJBPD Cj4+ZQzgunXdFpdFVyDsNYUzk3QiPSj1VN6AMAJqAKukAG8WGFXlyO5sOApvHH8BHoYvHRWyTTVUMzKi U93oxJTaJQj0C5SqDoLsGOEuBcneYOJhYPeqJiBaGUVyHkRmVRalKU0+ID4+YSpdAC1KUGdyeiXkWYZt Wn1MXLKsKGRdPH7jXTNlXDQdY4B9kGbkBMDXYeOoN9 muylmiZI5zUGXtJ030rVkzwxMiLMIcWTWpUv4SADRwRUM8FYCwxSYpVuGwRSTETLuhHD3LbJJzOTL0jC 6oQHijPBJwPIRdE4eKJsMepSzrHD38sCsxhiXzsFRoNJg+Up9FVW6qu0FaPHf0ilFdIZnzICP1JKioDA YrVSOwAFDaMMW9ATO4BAESRuKpPFMiRFUtDQtpKJBx LABqkn4VADMyIFXsPIi0FIUcFOKiFYHdGZjsZMMqNMW2VUV6CMMsBEOnVS3HJfTzLNBoJDHgAScbHJVc XQBdav9ZPCDrUOMjIDYlPPGcIGMtEJUbWLdkQXRaUGC6NxI5CWEmVGMfEY1YZwCtNAXaBMgxXufqWSXp EGCexl1ZQDXhVNIzIQFbZzGmTDRdWNAoKIaeITHtFJ G9UlLtMEKiYDFeGT6CLnWvRDHqFAA3QfXkHJOyUPWtzq9ITAShESXmMBT7MgPiGGDiYOUwWEqxDNEuMN P2BwcgBKTqZNScCF3RJmIwSNKgUzZ6ECKgJGIzXPNaub1RZJWgFYNiWdRjTCNrRQKiXEDlOPjbITOyQB W9ZuT9JYMoONJyKS9RCvQoARQqYrS1OxJmEHHtZTQt ne3GCDMxMSYrLBk2ZxAcAKHkAERnWEysWAAnMUN5MUOqFHKoCBQuIL9QVzQeNCOfUzW9XAdjBGAbOJHt dn6CLWOhQXIyOEulWrFmIREkUVOqTXrwRGHcKQLbEaeiRNCxEJWuAN5ZBoVlEYSrCfY4MkEqGAFdUJWi ix9CYTAeYFGqLrU7WwLrRPOfEWTwFGzwDWMgOBK5KA IfEESjBTXyFC1WAqXjIDFlNvLsMWXjYQQpJXCtco1IEMFaQDUhJDDvUcNrLKNvWAWhTQmzLXVgKZA4Sx TnRZMvLFUqGQ4HZgSfVUJeXkK2QuKpOIVxJTGjuw2WIQGpAGTiHHu0ZpWqIPGrZODmFWilFNMdIGK3FX b4VFQyXFYyLO4ZRjXnRDGbJqd0NqKaDFQxHKWwnn5T HLDnXXUqIchiYBHsWDQlZOOgUYmcWRPoUSF5JDc5JCRtZRZqGT2JGuWkFImhNIVYBcs7QIbqL4n7FMGl MT3ZX8Arj9QiAqLsTFOUNFjwJO2oqyWkSWBgQq5MY6gPEomlHXZqKDP9W1N7KEtfB9EtLDY4Vni8CDsa GPVkZgK3KR8vUCK7VXIuIjClEqm0WATuKKD0VfrbOU jkNOMzPBU0HVlkPbJdGC6QRd3UTnE5ZYQ9qJNeQp5QRlztUjQCBnZdKR9RGPb= ID Date Data Source [id number] 03/12/2020 02:10:43 AM T [facility] Name Value Range Interpretation Code Description Data Fide e(s) Supporting Document(s) Leukocytes [#/volume] in Blood by Automated count 5.1 10*3/uL 4-10 [facility] Erythrocytes [#/volume] in Blood by Automated count 2.53 10*6/uL 4.6- 6.1 L [facility] Hemoglobin [Mass/volume] in Blood 7.8 g/dL 13.5-18 L [facility] Hematocrit [Volume Fraction] of Blood by Automated count 22.8 % 4 1-53 L [facility] Erythrocyte mean corpuscular volume [Entitic volume] by Auto mated count 90.3 fL 80-96 [facility] Erythrocyte mean corpuscular hemoglobin [Entitic mass] by Automated count 30.9 pg 27-33 [facility] Erythrocyte mean corpuscular hemoglobin concentration [Mass/volume] by Automated count 34.2 g/dL 32.0-36.0 [facility] width [Ratio] by Automated count 16.4 % 11.5-14.5 H [facility] Platelets [#/volume] in Blood by Automated count 218 10*3/uL 150-400 [facility] ID Date Data Source [id number] [facility] Interpretation Code Description Data Fide rce(s) Supporting Document(s) Bicarbonate [Moles/volume] in Serum 23 mmol/L 22-29 [facility] Chloride [Moles/volume] in Serum or Plasma 101 mmol/L 98-107 [facility] Creatinine [Mass/volume] in Serum or Plasma 3.97 mg/dL 0.70-1.20 H [facility] Glucose [Mass/volume] in Serum or Plasma 107 mg/dL 70-140 [facility] Potassium [Moles/volume] in Serum or Plasma 4.0 mmol/L 3.4-5.1 [facility] Sodium [Moles/volume] in Serum or Plasma 137 mmol/L 136-145 [facility] Urea nitrogen [Mass/volume] in Serum or Plasma 110 mg/dL 8-23 H [facility] Anion gap 3 in Serum or Plasma 13 mmol/L 8-15 [facility] Osmolality of Serum or Plasma by calculation 319 mosm/kg 275-300 H [facility] Creatinine/Urea nitrogen [Mass Ratio] in Serum or Plasma 28 [facility] Calcium [Mass/volume] in Serum or Plasma 7.3 mg/dL 8.8-10.2 L [facility] Glomerular filtration rate/1.73 sq M pre dicted among non-blacks [Volume Rate/Area] in Serum or Plasma by Creatinine-based formula (MDRD) 14 mL/min/1.73m2 >60 L [facility] Glomerular filtration rate/1.73 sq M pre dicted among blacks [Volume Rate/Area] in Serum or Plasma by Creatinine-based formula (MDRD) 17 mL/min/1.73m2 >60 L [facility] ID Date Data Source [id number] 03/12/2020 10:12:19 AM EDT [facility] Name Value Range Interpretation Code Description Data Fide rce(s) Supporting Document(s) Thyroxine (T4) free [Mass/volume] in Serum or Plasma 0.87 ng/dL 0.93- 1.70 L [facility] ID Date Data Source [id number] 03/12/2020 10:12:19 AM [facility] Value Range Interpretation Code Description Data Fide rce(s) Supporting Document(s) Albumin [Mass/volume] in Serum or Plasma by Bromocresol green (BCG) dye binding method 3.3 g/dL 3.5-5.2 [facility] Bilirubin.total [Mass/volume] in Serum or Plasma 0.3 mg/dL <1.2 [facility] Bilirubin.direct [Mass/volume] in Serum or Plasma <0.3 [facility] Alkaline phosphatase [Enzymatic activity/volume] in Serum or Plasma 80 U/L 40-129 [facility] Aspartate aminotransferase [Enzymatic activity/volume] in Serum or Plasma 14 U/L <40 [facility] Alanine aminotransferase [Enzymatic activity/volume] in Seru m or Plasma 14 U/L <41 [facility] Protein [Mass/volume] in Serum or Plasma 5.7 g/dL 6.4-8.3 L [facility] ID Date Data Source [id number] 03/12/2020 10:12:19 AM [facility] Value Range Interpretation Code Description Data Fide rce(s) Supporting Document(s) Thyrotropin [Units/volume] in Serum or Plasma 1.510 u[IU]/mL 0.270-4. 200 [facility] ID Date Data Source [id number] 03/12/2020 11:24:40 AM [facility] Value Range Interpretation Code Description Data Fide rce(s) Supporting Document(s) Differential cell count method - Blood [facility] Neutrophils/100 leukocytes in Blood by Automated count 72 % [facility] Lymphocytes/100 leukocytes in Blood by Automated count 22 % [facility] Monocytes/100 leukocytes in Blood by Automated count 1 % [facility] Eosinophils/100 leukocytes in Blood by Automated count 2 % [facility] Basophils/100 leukocytes in Blood by Automated count 1 % [facility] Neutrophils [#/volume] in Blood by Automated count 3.57 10*3/uL 1.8-7 .0 [facility] Lymphocytes [#/volume] in Blood by Automated count 1.05 10*3/uL 1.2-4 .0 L [facility] Monocytes [#/volume] in Blood by Automated count 0.04 10*3/uL 0-0.8 [facility] Eosinophils [#/volume] in Blood by Automated count 0.09 10*3/uL 0-0.5 [facility] Basophils [#/volume] in Blood by Automated count 0.04 10*3/uL 0-0.2 [facility] Variant lymphocytes/100 leukocytes in Blood by Manual count 1 % [facility] Metamyelocytes/100 leukocytes in Blood by Manual count 1 % [facility] Lymphocytes [#/volume] in Blood 0.04 10*3/uL 0 H [facility] Metamyelocytes [#/volume] in Blood by Manual count 0.04 10*3/uL 0-0 H [facility] Macrocytes [Presence] in Blood by Light [facility] Anisocytosis [Presence] in Blood by Light [facility] Poikilocytosis [Presence] in Blood by Light microscopy [facility] Dacrocytes [Presence] in Blood by Light [facility] [place] cells [Presence] in Blood by [facility] ID Date Data Source [id number] 03/11/2020 12:27:34 PM EDT [facility] Name Value Range Interpretation Code Description Data Fide rce(s) Supporting Document(s) ED Provider Note [facility] LSIRFr6gIlIYZmJm69/PJCkjEBUnh5HdGJdxWCu2VEdtJNYzK6IwJBY0lS5bLWU0EOtKNjZhCdLgMkQb [facility] OkKreLNcYcVOQfIxlSDxNzYPyjPblxnGBzZH4AvJT2RWBhT96lQMJaNZGxY0KkUFYySjX+Vi3PSZBjfC ZpSB8LGcbC8E6Vnhp9Cm4EJI+lnbRJfmrqGorIQZlAvl8KALnXsLDHREuj4MSgF1ZpEck/PrVK/Z6oz/ 3MdY6QbEUGKDFDv5o8ZiKb/fdHtJWnSqmo/u/2Z25N [place]/c7p9G582Ok3e/cUFyTQdDkE1c0A/Yz1/Rd+OIye/egvfzIt1Yc7KDdWLBoeMyHDk5wgixs+Ovxf [file] E+DQogICAgICAgICAgICAgICAgICAgICAgICAgICAgICAgICAgICAgICAgICAgICAgICAgICAgICAgIC AgICAgICAgICAgICAgICAgICAgICAgICAgICAgICAgICAgICAgICAgICAgDQogICAgICAgICAgICAgIC AgICAgICAgICAgICAgICAgICAgICAgICAgICAgICAg ICAgICAgICAgICAgICAgICAgICAgICAgICAgICAgICAgICAgICAgICAgICAgICAgICAgICAgDQogICAg ICAgICAgICAgICAgICAgICAgICAgICAgICAgICAgICAgICAgICAgICAgICAgICAgICAgICAgICAgICAg ICAgICAgICAgICAgICAgICAgICAgICAgICAgICAgIC AgICAgDQogICAgICAgICAgICAgICAgICAgICAgICAgICAgICAgICAgICAgICAgICAgICAgICAgICAgIC AgICAgICAgICAgICAgICAgICAgICAgICAgICAgICAgICAgICAgICAgICAgICAgDQogICAgICAgICAgIC AgICAgICAgICAgICAgICAgICAgICAgICAgICAgICAg ICAgICAgICAgICAgICAgICAgICAgICAgICAgICAgICAgICAgICAgICAgICAgICAgICAgICAgICAgDQog ICAgICAgICAgICAgICAgICAgICAgICAgICAgICAgICAgICAgICAgICAgICAgICAgICAgICAgICAgICAg ICAgICAgICAgICAgICAgICAgICAgICAgICAgICAgIC AgICAgICAgDQogICAgICAgICAgICAgICAgICAgICAgICAgICAgICAgICAgICAgICAgICAgICAgICAgIC AgICAgICAgICAgICAgICAgICAgICAgICAgICAgICAgICAgICAgICAgICAgICAgICAgDQogICAgICAgIC AgICAgICAgICAgICAgICAgICAgICAgICAgICAgICAg ICAgICAgICAgICAgICAgICAgICAgICAgICAgICAgICAgICAgICAgICAgICAgICAgICAgICAgICAgICAg DQogICAgICAgICAgICAgICAgICAgICAgICAgICAgICAgICAgICAgICAgICAgICAgICAgICAgICAgICAg ICAgICAgICAgICAgICAgICAgICAgICAgICAgICAgIC AgICAgICAgICAgDQogICAgICAgICAgICAgICAgICAgICAgICAgICAgICAgICAgICAgICAgICAgICAgIC HeUXXjYFJnOOYyGPBbFFNxNRVeIYEsWWMqBFAeNEImXYMbZXDgEZShLKPsLDIoYTAwVLPcAVl1L9rdMS OqVCIkVO4zQPo4Pg9+BMuNTgYdHHQ8jsLosG8AUY1n t6LhUUhyFMWvn6TxRIa2LA6NSFThTZwzCK5VPLnnsu7HPQFoLWOduTZBk2zpDsTaLRS3GJJvQzgeYP6H BXQeU1hqomPgRFYvAYKUKMolYRUMEOhdGCSRTXJdOEKqBcZcEuMsYYQhLRSfECUIWKA3URSsHuMjQAZh TVGbWrBxYGKZXPMbOABzLkOiZPziHB2Sz1VzuJNwDC 8GWr6LSbBfXM5jcm1KQAVpYCZmEvwXMyq9KHudNX0AmFUmrJK5PRXsKKBMVpLgP8rxd2MkPSHkPFGFBC chDT7Pg2YpoWSaNQ2NPu3PMnCjIC1htk6QLSHwVICaMscQWpk4FJhjSL9XaFDuYYdALNRXqj10aTMdqx DYr1TsjkXujGDVb1UsVLUreU8fw73mUG4SMYN5XLFd EzpoXwFlTLDxOZbeOQQYXSiIPfEdL2Vea2UdQeA4OHKgFgBaZYkyCDYaLcXrPJ54hDlcGG0YSPStAHCj PU51NQAmVQGmKt7IHGEjQjR2xVX0COByAGDXYr5+CUkyiyVsHqhJKaJ2IEJvh5WqTWy9ZG2RGFViJXg9 lNLxNTPdXKDfbszpRNOtYc48ZHEoDyxkIl7gWSRGh4 ikxI0uAPAHDVYbvID4PuR9FuLtBvWwIRf9ZTXtVC5pARomCQ8VGEJ9AJyaECLjMSCKWL2FBCndMZT1Ua okhoBnqKTaBNbiGO8XJDDtcjZsLMYqBSKTVSlaTL2LfqP1UQY0ZCBiMu7PTXJwRuE4kTK3TgGzMFWNAv 4+VYvefeTcXqvLXaZ0CNVfe0ZnUDm0GD9AXBKlPMm2 mTRaDVBzZc41XHSuLbjuDA4sUJ9mS4DzbJdgPWTCFZV5PZTiTyfkIvQkAEZiVhzkXYMXKYwIUhHdG5Es h3VbBwNiILHmCWToE9mEKnMqQKUlUNShdRfvSR3HPjTbF0SvngYyuNG7QgKqPOZLHmApF4OsMDBfKAQa VKJWVYngPH9ABQy9TST8KEAbZh7ZPv2DBdBtSU3fwr 2RCTjbGUYbBkpXIfi1HUdeVE7ZkQEsEGeHHJZCp0ItkvPvvKYNjp6lPJQQMEmqfXnjIc4hQKVsXN4pPU 2wNSEqGVNdJlFmRRISXT0UWWKjBQGibXOcXFUgSJDvPoQlJVwaLNLzJkW5IL46gBheDT1ZNWPgVSKdZK 86SXNaGJDkAi3EEUApXIIjqvA7QsTeYUWRZkPhH13m eHQgNDggMCBSDQo+Zv2WPK3fb3MqPJo5GTWbGP1tkr8BSEsGTpSrW2AguWnoBNMCCV6xhZLiRAC0UPXh lyGLJNxanYs7TJJBMwOdhTP9RhV8UdSlQoMlZKE8YTYxMC7cTJzpCC3YFTP7QKjgVlHuFSNAIC2LTPpe XCViBxZbebBumLHpQTbcKA3CVEOzbqOsDTJyQNDXHI lmDM9IleG8LWO1PWSpSp3ZAVRuMoM1sEM9QLTaUXJPFq9+UNjiiiYsRxyINhO3GJKjr5DeXOc1TS2QCY PvQGh8yKTtKYXvQo22QKXmWrjrEJ6wGW0lP7UoiUbiJYZDXEB9PCGrAlroBgJgFCChVZdoKTQFRRhWHu PzQ6Shp2VqZgGaDYAdRGDbN0bFEcXgLHD7XUKuvFfo XH2YRbCsO3FyrpCybHP0ZsHkLARJEoJnT5UiJEKoPEzmLKPYFUfqNZ9JURe9PRRbUFTcXd1QPj9QHfEq DS7mco2BVDGqIYPpJdgLCjo7PXtiCS6TiQMzKFkRVBKKm3CcqkEorQOVpo4zRMPEVTuzwGmwQf7jUSZu NJ1qYD8gZLTnOKQ8TvDqADNTFG3BESVyIKXfaXGrKR VcMDAmEwDjBEfaLDIiGRxjlzCriIBdPOhnAX4YZEPghbTxPUDbRLGWJXkyJZ4KibC5FHX3ZZNuGl1NYW UbOqX2iLY1GBVuJUBHEo7+WZkecnLkPprDElRjQABws0BiYDt1WW3YCDCtGNw1uKUxEIElHl04OUDoVi eiOE2iNP2sK2DonQyeIMUJYLQ5AWLcPgbwIkXeCXKm PWvgNlPPDClDHrUlR4Bpr4VxFzRuQpTqKLKaG3vXRtVsOUTjNNWkaOkzGI6QYhTbP8XpvdCyuMR4ZvZz DXKWNhQpV8LmFQDbYMBdAUEWYIevDK0VGEy5OOCaGSGdLd9HLq2CWhAcXN2ray8RWNKdVEKkCvtOSjb2 WYzdKE8KhYYzERqFJHUBt1UoxiAmkWMXbr4pAQVWIP detJzlUz4vIQHhPS4iXT3nQYMuEBQ5OpJwXWSRUJ7DJPWmIILrvQKtKEXvCYCaEiAeZBarMWDyHCI3BK 51wIuvKS3LALMbBJUhUX92NEDqOCJxAw8YVWBvDJIteiF5TSZbNYUZYyRnP99scWMbMWLrQBVXEWo+Pg 0QBP9vs5OjHIe5UmPvXK1wjr0AAOfHWpDcB2XtsEni OOESQG4qwROfMLR3KIi3aiRLRARgphhxlewtXf1yBYXwMH4eZH2fWIXpRYQ9JzDbDRPEYY2OVJZhCPLj fSXrEUOjHDMwWbKnFCzcXBXvCAD0ET28hAysDM4CGRPqLDVaSJ12HNNqRJDiPv1YDGPiCCZmvgB8ThIk YEJYAuZpP73pkYPfQDWjKSWZJZu+Pk7GMY6yu1ZhNE x2JSNwLR2oia4TZEaJBdPaZ2FsuEucFTGYCOUfqKBoKOQVc0XzyqYxdGKQmA9cNCNZx2FuhYWtRJWEYQ Y6PXTmPwmuKcRzRTZkSGg2SoAMVNuKDzEtY5Hkh7RmAaIaNbCyPDEbF7tGNoFaHFC6RLUmkUmiHN2DOc KeX1KahnLrjHM9VgDwCUNPUqVhV9WwBGWtFNIzRSHY DQo+Ta0PYM8ey8RsGDi1NQEqGZ9uig1ZWPdXPnBuD0X8pPKwE2Q2GZqqZr1CMUCuZJZsCIIoXXPPGZev GC0UEY3iivN6AW1DwPEsKLDlDTWyrGCgTXv4O83gbFAeKZvgCK8ULQQ+Gerardo+Wg3ZWNNpTSKuPEKbZlFb GYORPdAdN6OfQ9BBz4SzI1RnSO40uScpglMpEYhhZH 7OZL1dSTBrHPKSLM1JjOKkbU3qbkL4KbLfTXPXBuKxH59xiHVxOEGiOAGjCFKdLq9ZZYTsS9XfuhUgtT zembKmHKFwJOBWRI6CLTnpedWvmJUdgPnuYI00zSxjSL2JZi1HHmLhVN5hwa2GaGWqSw7IZMZ4Bf1XUH SkULAdFOIhFLZ7DRMwVeRtCPkiUXLrSUQjIRI1VYZm LPWzYR4WVqKaWQUcBObmGJeoFVFzGTJukr9UGXYiGKG9JKVkMLPdSCMyCWCaHGwfNHZdRADfKCI1SKXx KSUhXO4ATrQyPMAlDRB9LYUcUALrKQVcnc4DTRMqVSIxIdyuMLOkZYMmXSHeCYbwPMUzSXP1YAG3WNCb WIHsEQ8QLoHuUDLsCLSsTXklPZDvELSkkp9JKAUnRQ CxRCD6NfCuMTObJXPdQDsaIXAyFXZ8CzjxHVCcROFqQQ0DTbPcCIGrHQN1PdztTMIeIGGcab1KMHVaMU UhQcf4IHBiLXZmZEZsSUolQBZsFSG2XbW5BKCmALItXZ1NRgOlHQWqXAO5NaBgYJZiNBNevo5ZVQZuGI WyFOt9CrGvDOVkKIMkIRetZEJnKNO7OGK9ZEFcXDDd OI3EMzSrSYBrDeWjSKXeVQNiMAQlkk1RQEXqPDRbUJH6YSKkIRLcARJeEGttQBIzWJG9RiF8GGAgXMHt LY7JSpLbCVNgPxD2CoMsDVAdOQVgey6QGQWrGRHxRik1NNJkJJOsYWTfNUlnVXLeTGJ5LSU0OBKjSMPo XD5XSzMqZHFwVkRlTLXdJDIvSRYbmk5QUMYoCMOcMI W0HDWuGCMnZVPdQRnhZHGmVXNwJGHlTLLvXTYnOY8WSoBeVYXoGiG1ZVnsRAYzTDSfzw0ZCGBzKWVpWI brWCNiYQAaMCIgPSwtRADmVIJnFKdrTTOgLOKfED8HLyGpRISvTsRrMFOmYDJlKKBvms8CVLDuKPEoGd C6DFWpHVDjKCNaKDzlXSMcDCH0KhHgFIOgVHJyBE1K RkIsBMKqNhG2FrepBLFpPKQxpk9TDEMvJVXdKBRnBJEqIRWyFDXkLLnkIVOhVZL9EZE3GYMrQKKmZK4A DlOqLNZjVPYxTfZxWEBsCGWvpf1TOYScMSE7XfIwOhQnDGUvFPJwPXkwBCZzYMZ8UgmxZCGhDUTbEI4X ZlDeQRKpGWN2XGziRIKjVLJcui0MBLMsDIG4Vsq5RZ NkVWMpPARlGZyxTRGiTCK4SFP6HMUlEZJaHC5BCiTnRMRfNSzqBimpJSMnQOAzcq6NYGGfKGQ9STS0ED CjUFJdMQOiKXycZYJqZGAaNSSfXENrTKSzVG3LCwNrMNMhXUHfEbNmFKNlVTMlem1VOKGxSFN9TNI1DO IzIFRgYIWmLHtnIXAnYIYyFMmvEPDmACKiAK5NEyAo VJUtWUO6HWRyVPNeOUUpid6ZXBQdIPV9IHpyWwEmJVSdBEKlVXlkDSAzROZcOXGdKNYaCASqGM5TUvNf BHXbFWOcKbJtJWJvAHMjpc3DACXwVWG3PIB0MQPwEUWwWHPfANcrSQYjVTPbYyV2UOHsQIGlMN5CMfKp BRPpJJK6GHYrUCZyPDNwoy6SXJDsOXK9JVe2CTWqQB IgUMMsDLbdMMZvLVPyKGLqCRMiLXVqUN6ECkHuZPghKAPTCwe3HEikZ4p2AUV7Lz6RF7Pug9OlUSDdJV MRHPzfOB8mlvXvUYEwGm7MU9eEQqw5Y9U0LpApYTfhGYCfQ6E3ZzG5W8U4InLeKZw7REC7Vy3tFZgdBZ kpMnE6YOGfDSG5OmDmIMx1CzBeSWBfWxG6VPO6TcSo [id number]CNRp= ID Date Data Source [id number] 03/11/2020 12:41:46 PM T [facility] Name Value Range Interpretation Code Description Data Fide rce(s) Supporting Document(s) Leukocytes [#/volume] in Blood by Automated count 5.8 10*3/uL 4-10 [facility] Erythrocytes [#/volume] in Blood by Automated count 2.57 10*6/uL 4.6- 6.1 L [facility] Hemoglobin [Mass/volume] in Blood 8.0 g/dL 13.5-18 L [facility] Hematocrit [Volume Fraction] of Blood by Automated count 23.2 % 4 1-53 L [facility] Erythrocyte mean corpuscular volume [Entitic volume] by Auto mated count 90.0 fL 80-96 [facility] Erythrocyte mean corpuscular hemoglobin [Entitic mass] by Automated count 31.1 pg 27-33 [facility] Erythrocyte mean corpuscular hemoglobin concentration [Mass/volume] by Automated count 34.6 g/dL 32.0-36.0 [facility] Erythrocyte distribution width [Ratio] by Automated count 16.1 % 11.5-14.5 H [facility] Platelets [#/volume] in Blood by Automated count 221 10*3/uL 150-400 [facility] ID Date Data Source [id number] 03/11/2020 12:13:58 PM EDT [facility] Name Value Range Interpretation Code Description Data Fide rce(s) Supporting Document(s) Consultation [facility] [id number] lbm [file] [id number] ID Date Data Source [id number] 03/11/2020 01:36:14 AM EDT [facility] Name Value Range Interpretation Code Description Data Fide rce(s) Supporting Document(s) Leukocytes [#/volume] in Blood by Automated count 4.7 10*3/uL 4-10 [facility] Erythrocytes [#/volume] in Blood by Automated count 2.43 10*6/uL 4.6- 6.1 L [facility] Hemoglobin [Mass/volume] in Blood 7.5 g/dL 13.5-18 L [facility] Hematocrit [Volume Fraction] of Blood by Automated count 21.7 % 4 1-53 L [facility] Erythrocyte mean corpuscular volume [Entitic volume] by Auto mated count 89.4 fL 80-96 [facility] Erythrocyte mean corpuscular hemoglobin [Entitic mass] by Automated count 30.8 pg 27-33 [facility] Erythrocyte mean corpuscular hemoglobin concentration [Mass/volume] by Automated count 34.5 g/dL 32.0-36.0 [facility] [Ratio] by Automated count 16.3 % 11.5-14.5 H [facility] Platelets [#/volume] in Blood by Automated count 193 10*3/uL 150-400 [facility] ID Date Data Source [id number] 03/11/2020 02:13:16 AM EDT [facility] Name Value Range Interpretation Code Description Data Fide rce(s) Supporting Document(s) Bicarbonate [Moles/volume] in Serum 23 mmol/L 22-29 [facility] Chloride [Moles/volume] in Serum or Plasma 98 mmol/L 98-107 [facility] Creatinine [Mass/volume] in Serum or Plasma 3.83 mg/dL 0.70-1.20 H [facility] Glucose [Mass/volume] in Serum or Plasma 123 mg/dL 70-140 [facility] Potassium [Moles/volume] in Serum or Plasma 4.3 mmol/L 3.4-5.1 [facility] Sodium [Moles/volume] in Serum or Plasma 135 mmol/L 136-145 L [facility] Urea nitrogen [Mass/volume] in Serum or Plasma 107 mg/dL 8-23 H [facility] Confirmed Anion gap 3 in Serum or Plasma 15 mmol/L 8-15 [facility] Osmolality of Serum or Plasma by calculation 316 mosm/kg 275-300 H [facility] Confirmed Creatinine/Urea nitrogen [Mass Ratio] in Serum or Plasma 28 [facility] Confirmed Calcium [Mass/volume] in Serum or Plasma 7.2 mg/dL 8.8-10.2 L [facility] Glomerular filtration rate/1.73 sq M pre dicted among non-blacks [Volume Rate/Area] in Serum or Plasma by Creatinine-based formula (MDRD) 15 mL/min/1.73m2 >60 L [facility] Glomerular filtration rate/1.73 sq M pre dicted among blacks [Volume Rate/Area] in Serum or Plasma by Creatinine-based formula (MDRD) 17 mL/min/1.73m2 >60 L [facility] ID Date Data Source [id number] 03/10/2020 04:37:13 PM EDT [facility] MR FACE ONLY WITHOUT CONTRAST [id number] RESULTInterpreted by:Melissa Mitchell MDINDICATION: 64 yo male [...] rce(s) Supporting Document(s) ID Date Data Source [id number] 03/10/2020 01:15:59 PM [facility] Name Value Range Interpretation Code Description Data Fide rce(s) Supporting Document(s) Leukocytes [#/volume] in Blood by Automated count 5.0 10*3/uL 4-10 [facility] Erythrocytes [#/volume] in Blood by Automated count 2.64 10*6/uL 4.6- 6.1 L [facility] Hemoglobin [Mass/volume] in Blood 8.2 g/dL 13.5-18 L [facility] Hematocrit [Volume Fraction] of Blood by Automated count 23.7 % 4 1-53 L [facility] Erythrocyte mean corpuscular volume [Entitic volume] by Auto mated count 89.9 fL 80-96 [facility] Erythrocyte mean corpuscular hemoglobin [Entitic mass] by Automated count 31.2 pg 27-33 [facility] Erythrocyte mean corpuscular hemoglobin concentration [Mass/volume] by Automated count 34.7 g/dL 32.0-36.0 [facility] width [Ratio] by Automated count 16.1 % 11.5-14.5 H [facility] Platelets [#/volume] in Blood by Automated count 199 10*3/uL 150-400 [facility] Differential cell count method - Blood [facility] Neutrophils/100 leukocytes in Blood by Automated count 86 % [facility] Lymphocytes/100 leukocytes in Blood by Automated count 9 % [facility] Monocytes/100 leukocytes in Blood by Automated count 3 % [facility] Eosinophils/100 leukocytes in Blood by Automated count 1 % [facility] Basophils/100 leukocytes in Blood by Automated count 1 % [facility] Neutrophils [#/volume] in Blood by Automated count 4.36 10*3/uL 1.8-7 .0 [facility] Lymphocytes [#/volume] in Blood by Automated count 0.45 10*3/uL 1.2-4 .0 L [facility] Monocytes [#/volume] in Blood by Automated count 0.13 10*3/uL 0-0.8 [facility] Eosinophils [#/volume] in Blood by Automated count 0.04 10*3/uL 0-0.5 [facility] Basophils [#/volume] in Blood by Automated count 0.05 10*3/uL 0-0.2 [facility] Nucleated erythrocytes/100 leukocytes [Ratio] in Blood by Automated count 0 /100{WBCs} 0-0 [facility] ID Date Data Source [id number] 03/10/2020 05:17:44 AM [facility] Name Value Range Interpretation Code Description Data Fide rce(s) Supporting Document(s) Leukocytes [#/volume] in Blood by Automated count 4.8 10*3/uL 4-10 [facility] Erythrocytes [#/volume] in Blood by Automated count 2.16 10*6/uL 4.6- 6.1 L [facility] Hemoglobin [Mass/volume] in Blood 6.6 g/dL 13.5-18 L [facility] Hematocrit [Volume Fraction] of Blood by Automated count 19.1 % 4 1-53 [facility] No significant change since last result called Erythrocyte mean corpuscular volume [Entitic volume] by Auto mated count 88.5 fL 80-96 [facility] Erythrocyte mean corpuscular hemoglobin [Entitic mass] by Automated count 30.6 pg 27-33 [facility] Erythrocyte mean corpuscular hemoglobin concentration [Mass/volume] by Automated count 34.6 g/dL 32.0-36.0 [facility] distribution width [Ratio] by Automated count 16.6 % 11.5-14.5 H [facility] Platelets [#/volume] in Blood by Automated count 178 10*3/uL 150-400 [facility] ID Date Data Source [id number] 03/10/2020 05:59:18 AM [facility] Name Value Range Interpretation Code Description Data Fide rce(s) Supporting Document(s) Bicarbonate [Moles/volume] in Serum 25 mmol/L 22-29 [facility] Chloride [Moles/volume] in Serum or Plasma 100 mmol/L 98-107 [facility] Creatinine [Mass/volume] in Serum or Plasma 3.93 mg/dL 0.70-1.20 H [facility] Glucose [Mass/volume] in Serum or Plasma 107 mg/dL 70-140 [facility] Potassium [Moles/volume] in Serum or Plasma 4.0 mmol/L 3.4-5.1 [facility] Sodium [Moles/volume] in Serum or Plasma 138 mmol/L 136-145 [facility] Urea nitrogen [Mass/volume] in Serum or Plasma 112 mg/dL 8-23 H [facility] Confirmed Anion gap 3 in Serum or Plasma 14 mmol/L 8-15 [facility] Osmolality of Serum or Plasma by calculation 321 mosm/kg 275-300 H [facility] Confirmed Creatinine/Urea nitrogen [Mass Ratio] in Serum or Plasma 29 [facility] Confirmed Calcium [Mass/volume] in Serum or Plasma 7.6 mg/dL 8.8-10.2 L [facility] Glomerular filtration rate/1.73 sq M pre dicted among non-blacks [Volume Rate/Area] in Serum or Plasma by Creatinine-based formula (MDRD) 15 mL/min/1.73m2 >60 L [facility] Glomerular filtration rate/1.73 sq M pre dicted among blacks [Volume Rate/Area] in Serum or Plasma by Creatinine-based formula (MDRD) 17 mL/min/1.73m2 >60 L [facility] ID Date Data Source [id number] 03/09/2020 06:55:43 PM EDT [facility] Name Value Range Interpretation Code Description Data Fide rce(s) Supporting Document(s) Leukocytes [#/volume] in Blood by Automated count 5.7 10*3/uL 4-10 [facility] Erythrocytes [#/volume] in Blood by Automated count 2.24 10*6/uL 4.6- 6.1 [facility] Hemoglobin [Mass/volume] in Blood 7.1 g/dL 13.5-18 [facility] Hematocrit [Volume Fraction] of Blood by Automated count 19.8 % 4 1-53 [facility] No Significant Change Since Last Result Called Erythrocyte mean corpuscular volume [Entitic volume] by Auto mated count 88.4 fL 80-96 [facility] Erythrocyte mean corpuscular hemoglobin [Entitic mass] by Automated count 31.5 pg 27-33 [facility] Erythrocyte mean corpuscular hemoglobin concentration [Mass/volume] by Automated count 35.6 g/dL 32.0-36.0 [facility] distribution width [Ratio] by Automated count 16.5 % 11.5-14.5 H [facility] Platelets [#/volume] in Blood by Automated count 171 10*3/uL 150-400 [facility] ID Date Data Source [id number] 03/13/2020 08:01:58 AM [facility] Name Value Range Interpretation Code Description Data Fide rce(s) Supporting Document(s) ABO and Rh group [Type] in Blood [facility] Blood group antibody screen [Presence] in Serum or Plasma [facility] 03/12/2020,0000Performed at [facility], [address] [place], [place] at 1515 03/09 SR ID Date Data Source [id number] 03/12/2020 12:44:41 AM [facility] 03/12/2020,[id number] Name Value Range Interpretation Code Description Data Fide rce(s) Supporting Document(s) ABO and Rh group [Type] in [facility] Performed at [facility], [address] [place], [place] 5[place] at 1351 ID Date Data Source [id number] 03/09/2020 03:51:48 PM [facility] Name Value Range Interpretation Code Description Data Fide rce(s) Supporting Document(s) Platelet function (closure time) collagen+ADP induced [Time] in Blood 100 sec 72-108 [facility] Platelet function (closure time) collagen+Epinephrine induced [Time] in Blood 100 sec 98-160 [facility] Platelet function (closure time) [Interpretation] in Blood Narrative [facility] ID Date Data Source [id number] 03/09/2020 02:59:48 PM [facility] Name Value Range Interpretation Code Description Data Fide rce(s) Supporting Document(s) Leukocytes [#/volume] in Blood by Automated count 5.5 10*3/uL 4-10 [facility] Erythrocytes [#/volume] in Blood by Automated count 2.34 10*6/uL 4.6- 6.1 L [facility] Hemoglobin [Mass/volume] in Blood 7.2 g/dL 13.5-18 L [facility] Hematocrit [Volume Fraction] of Blood by Automated count 20.8 % 4 1-53 [facility] No significant change since last result called Erythrocyte mean corpuscular volume [Entitic volume] by Auto mated count 89.2 fL 80-96 [facility] Erythrocyte mean corpuscular hemoglobin [Entitic mass] by Automated count 31.0 pg 27-33 [facility] Erythrocyte mean corpuscular hemoglobin concentration [Mass/volume] by Automated count 34.8 g/dL 32.0-36.0 [facility] al Erythrocyte distribution width [Ratio] by Automated count 16.6 % 11.5-14.5 H [facility] Platelets [#/volume] in Blood by Automated count 178 10*3/uL 150-400 [facility] ID Date Data Source [id number] 03/09/2020 05:01:48 AM [facility] Name Value Range Interpretation Code Description Data Fide rce(s) Supporting Document(s) Leukocytes [#/volume] in Blood by Automated count 5.7 10*3/uL 4-10 [facility] Erythrocytes [#/volume] in Blood by Automated count 2.26 10*6/uL 4.6- 6.1 L [facility] Hemoglobin [Mass/volume] in Blood 6.7 g/dL 13.5-18 L [facility] Hematocrit [Volume Fraction] of Blood by Automated count 20.0 % 4 1-53 [facility] Called to and read back by Peña Chambers on RN on 5B at 0501 by 1521 Erythrocyte mean corpuscular volume [Entitic volume] by Auto mated count 88.5 fL 80-96 [facility] Erythrocyte mean corpuscular hemoglobin [Entitic mass] by Automated count 29.9 pg 27-33 [facility] Erythrocyte mean corpuscular hemoglobin concentration [Mass/volume] by Automated count 33.8 g/dL 32.0-36.0 [facility] al Erythrocyte distribution width [Ratio] by Automated count 16.8 % 11.5-14.5 H [facility] Platelets [#/volume] in Blood by Automated count 183 10*3/uL 150-400 [facility] ID Date Data Source [id number] 03/09/2020 05:29:10 AM [facility] Name Value Range Interpretation Code Description Data Fide rce(s) Supporting Document(s) Bicarbonate [Moles/volume] in Serum 23 mmol/L 22-29 [facility] Chloride [Moles/volume] in Serum or Plasma 97 mmol/L 98-107 L [facility] Creatinine [Mass/volume] in Serum or Plasma 3.79 mg/dL 0.70-1.20 H [facility] Glucose [Mass/volume] in Serum or Plasma 108 mg/dL 70-140 [facility] Potassium [Moles/volume] in Serum or Plasma 4.1 mmol/L 3.4-5.1 [facility] Sodium [Moles/volume] in Serum or Plasma 135 mmol/L 136-145 L [facility] Urea nitrogen [Mass/volume] in Serum or Plasma 117 mg/dL 8-23 H [facility] Confirmed Anion gap 3 in Serum or Plasma 15 mmol/L 8-15 [facility] Osmolality of Serum or Plasma by calculation 317 mosm/kg 275-300 H [facility] Confirmed Creatinine/Urea nitrogen [Mass Ratio] in Serum or Plasma 31 [facility] Confirmed Calcium [Mass/volume] in Serum or Plasma 7.8 mg/dL 8.8-10.2 L [facility] Glomerular filtration rate/1.73 sq M pre dicted among non-blacks [Volume Rate/Area] in Serum or Plasma by Creatinine-based formula (MDRD) 15 mL/min/1.73m2 >60 L [facility] Glomerular filtration rate/1.73 sq M pre dicted among blacks [Volume Rate/Area] in Serum or Plasma by Creatinine-based formula (MDRD) 18 mL/min/1.73m2 >60 L [facility] ID Date Data Source [id number] 03/08/2020 05:10:50 PM EDT [facility] Name Value Range Interpretation Code Description Data Fide rce(s) Supporting Document(s) Leukocytes [#/volume] in Blood by Automated count 6.4 10*3/uL 4-10 [facility] Erythrocytes [#/volume] in Blood by Automated count 2.45 10*6/uL 4.6- 6.1 [facility] Hemoglobin [Mass/volume] in Blood 7.5 g/dL 13.5-18 [facility] Hematocrit [Volume Fraction] of Blood by Automated count 21.9 % 4 1-53 [facility] Erythrocyte mean corpuscular volume [Entitic volume] by Auto mated count 89.2 fL 80-96 [facility] Erythrocyte mean corpuscular hemoglobin [Entitic mass] by Automated count 30.5 pg 27-33 [facility] Erythrocyte mean corpuscular hemoglobin concentration [Mass/volume] by Automated count 34.2 g/dL 32.0-36.0 [facility] al Erythrocyte distribution width [Ratio] by Automated count 16.8 % 11.5-14.5 H [facility] Platelets [#/volume] in Blood by Automated count 188 10*3/uL 150-400 [facility] Differential cell count method - Blood [facility] Neutrophils/100 leukocytes in Blood by Automated count 86 % [facility] Lymphocytes/100 leukocytes in Blood by Automated count 11 % [facility] Monocytes/100 leukocytes in Blood by Automated count 2 % [facility] Eosinophils/100 leukocytes in Blood by Automated count 1 % [facility] Basophils/100 leukocytes in Blood by Automated count 0 % [facility] Neutrophils [#/volume] in Blood by Automated count 5.57 10*3/uL 1.8-7 .0 [facility] Lymphocytes [#/volume] in Blood by Automated count 0.68 10*3/uL 1.2-4 .0 L [facility] Monocytes [#/volume] in Blood by Automated count 0.14 10*3/uL 0-0.8 [facility] Eosinophils [#/volume] in Blood by Automated count 0.03 10*3/uL 0-0.5 [facility] Basophils [#/volume] in Blood by Automated count 0.02 10*3/uL 0-0.2 [facility] Nucleated erythrocytes/100 leukocytes [Ratio] in Blood by Automated count 0 /100{WBCs} 0-0 [facility] ID Date Data Source [id number] 03/08/2020 03:09:29 PM T [facility] Name Value Range Interpretation Code Description Data Fide rce(s) Supporting Document(s) [facility] NEVPOx1eGfSMUxJr39/CEDcjZSMdf1GxMEumOGq4OTptGRJyA4IyGWG0kO5pYAV0RBoNKnKiBmWcBYIm lbm [file] XSANCj4+BPpgoIJipXzoNEGVCwKdZTPxNVzaVUUFSj1V ID Date Data Source [id number] 03/08/2020 08:28:19 AM EDT [facility] Name Value Range Interpretation Code Description Data Fide rce(s) Supporting Document(s) [facility] VKCJAg9bQwGKRsMxf1ShZoLzLXVbCJ3yqes5O6B6uZKyB4ZcnDKoe8nkN4IfG6UmJSVpLMTFJY6ZvZNn jb2 [file] apple checker/5Oc2T25+nK2I2Lx7TJ7SC+E3+A3+Af+A3+F3+A P+gH/CP+Ff8KO+hvpI7zxII3toj52mCNNU1z1Eh/Ar/Aa/wT/gH/A7/A5/wB/wT/gn/Av+Bf+Gf1+/ob 0G86u9mhfnt5a+olwche3beya1ZcgzeK+mdfy7Az7d3Lhrv2362qkQJ/X1/M2pr6f/1DfSf+essc3OsL El9ln2bZJL20W9c8YMI8+d0SIvse/51Hc/6f/Udz/p N7/lAf+xarOt57A5wtw+gD/su2eqXx15a17uN+QLNJx1GMaJtOSdlfgdstf/9d3j+D/6/pb9+5uPun+3 /Yj7d/8fbf+eg6O+uc7yCcG2d42rax8de9jqg98ayxmGgV9s10bDsb9o2zPhGt3S6X4p7uaXroArBi5G /sdvAJRUr55d/no47raJTjy+pxekC7F/y3b8+RvzWx 7wD/z+0Po5zza2wB1k9GQjEp/4J35/8uxM7ypR7+/rn8+G7v7UsKzc+ZQs19O6W+o7Ud+J+b1Z31MEbh n+gD/gn/VD0X9T73nbzrFu1/LGcff9/Lsj1iE6En/Ar/Nnqn3MvcdN8mpmYc+14Ee3zZzr41TTR25147 K6jYYdE4noqlQf4xr/LoxH+1zfWkn+3PtrC/wC/7m+ wIT95HgAqq1wmy/gP/O400zc857pNy/g9xh/51sf0MJGaQ/4F84H/fM+9c21dc/pr54qf/hIk5I6ue1+ 5vbPZ/d13QJg6Yz9BNbunMAumW7o8h1Qy+l2bszsnjfMMC6Z62qun5mqUhE0i33W73YFbpZge4lOk+C/ 968+9/2Mwjxkjq8egwUy7Ov4Tz/Bb/Kd3xpqm4JQas z+SlNfVTngD/gn/BP+9b2vz/Nvx8nCm+/vU1/l+Ddyk2gc6c5OQ7+9Wemz3kZLeHZvEy+A/96/qvf+VQ 34A/4J/4R/wb/g3/Fx50d7UmrywozA/FdPaukry/L3/lK7+lnN4B/wD/wCes1rb6//dXmg4b0GadMfx2 7LC/4F//71S6w9Phrez43h7e+4/ZUOgV/v/o++esuG /eD+Pfoq+88i7Xi24Wmd/d7vR1+lrjvrvN++5eir6h+JroyV5M/tx85ACHb0773j1JU3V9cnnd3EoISS oE9/lcsiS1+lX7+3K0FgHbx++v3t7X2YxxX90qL7Eg/Lm5CIsQ/1bRK72UqjgL4ZkJy+OzsLuk/+5J9c z33L8G/49/UffZVT/29X1rTe+PyGzo8u/IrfK/ZjD8 rwD/wDfzZbo49avjs9UZC9+egruiCEetHmw1xa7JbK82i6+Szdfq/M7Lr6KCZVh4R5eg/8Aj/Nm2mj0W mwm6kx092BB917q/Q7rByDD4TmZwvu3mwPQ9I+j76q+4ZDq90F5V8c7wxd8Vjp+xaT0Sskhqa0yBh43f 5dCr/Cb/Ab/Bh/U5jb7QuqWF33Ugn6Cnpjsyt/6rvu 62Rwxkj40NXCO7+17hu13HnxZX62Srz4fm7K4AgZtfYN+m7Ud6O+++B2ATmW39Zt7b4p69m/nPrqLX/9 Z+70YjEx1Pp57/rac/ViGKa8oxEYwNUzyh/81tklkDojvwik07PN/gn/hH/Bv+Df8N/cBDw07Vato/t7 5K8M+Naveed/FX+bcL72HvpJ8VP2+UBzVJ4YvKMEk8c0t 8QzaaCMh5/4/eor6K+yF+DOy2gyi+CLjZMB44SxnCq9R/yb08mf7IEieg+gD/hz3xW0bf0BhIONb1j4U rXsQF2o/uYvz52p2vI5LnOn2vlgFRlwm+lf2D/F48T87RpwF9Zx7/4PeprqK+hvobrm/oq28m4+TpLfV Xlm6+g8josb1+DNnD/nh7n1cf/hZJSuT2J66jqK/pq Ztlv+rasz42j9Nq3/oJ4Plxus1kJ/4Z/X7/c2it1Yz6h1uwi9sa7OyKOXq7kye+qDP+Qy2Yma51d8Lu3 +Zsymf4LY4M8fo2Hc9v2XE3pD+u3fza/469l/amiC6a1i7VHk4op+mb+qhYP3+eFs/z5W0Z/AuatLj5q 3Ocjq/aBca46tpwdepk/ftR1u8fW/gn/gn/Bv+G/+Z vg9dv7VlFb2c/qPjaCZ710QgY89cY68kUuml3YNNtga2SrtbzsrqcyS/yob+Wv0p/P++lfOO6G/z7/2k R7Z32Xk6cE/ue0ei7LYA2508/6npoiTEg2fqf856F2Eay+K7D/U9+W6WOtEOB72CEUmsrxaqLr2/e4vq kv8bi20feyi5/j583AOT2edb+elk05xNNhg/ q2303rUG1/9wvRm8M34oNq98b0qew/3qR1/b5rua5btk+/R5WQhdp/GIhj4n91Flm/y836wl84gj19q/ /uVBqNAduZYyhXhW0Sj94Ferv45u1zfgacWl2lcSZyFe/e80Xb003Bzm9j/qcsLOvQO2qrgLCDfqm1mU 0viyoTB6seRS53vpgA3zxs00o3gu9jIU4WulEZ6sjH F2960InT4y1NiH6fsbTto6U6cjnEturM9zJmkC/4R/wr/gX/Bv+G++bqS+anKG912V5l+qDL/Cr/Ab/A Y/3gx59Wv1NXI6S/6A/+qNgfeDA+0UO53SNauwLQc/OOzqyWEP/FdPjspfZVnhV/gNfoN/wD/gd/ivfh 7JE40DB9Q2aq/cT0t9yReUN1/5+fEqyPM4Zd8gG65l n4/GUPgNfoN/wD/gd+bawazT5gA/v/u4fpxgizyvj3C4Aegzrl0A+33cfPtZT/z+graff/70LOa+Fluks0Z 68ebgBISdfVU8/wMwJgMLT3cB/j9q+jY2odxw+33Ul/e0i4PD6mXi/3/jFxGrQIh8wP/X3/mr94y/EdP fps9E3u/hjOkhNpkJ7n23NpndbpSq7n91mivxwyw3t LIbG7wY380t8bY/4R/wr/gX/Bv+Wq9w0ywQ3w/qrLAL/DrPc+p9/yPvqpx5+bhb5iv2Iejh+o3WpJyT7 /a0OnOZ04BCTvE361Mzs/jsbNw1880SXY6h8/8n8KCx8WtpemPixN1mbES+BV+g9/gH/AP+D8Jnw4DPt 3wLcM/sZ95x+Wjr75l+Df8+/qPvvqW/Jli7MlcLInv 7e2jLp44kU/Gvu/3R+rxtuxaU8E9rxb3/A5/wB/ky3vQLC3d+8nEM4YKlnhJxMi9d/6GZ/7qLcN/+qvT R0hoiafo/Aq/wW/wD/wWLrq52e2Llq8OU/6Af8I/4V/wL/g3/Jb1oenaeJQ+lSN/1MNrW14NdsQo5Cy0 B/tGlneg6u/hH9qusbVr1kP33WEh/+rpg58t4KbU+7 ar4G8vCMvcFoOJ+BV+hd/gN/gH/Hc+o2n6Z21eJ+OmYCfnzrm7aYBZ5V1Dva/ucw1x2rtdB2/eIUg2ve f8+/7+9Kmdw2BF+Ut1XamqNcvX/3kenLntmb/rspUy9P/3UO2FG2M/6MtT69Cw4u5q9XfVC6pVWa73PC //9YuwVljb2uTO54Y8FmZ66Ik0O3K+Bvyo7/B7/gPX g5g1Jo7t93WGoZus2yZHO7/DB+9wpvDmGt85DBd1ngZKB7XW/AHzu8n4Cgtk4fWnp3/ym6/w7Bw6ni4v /+x++2f3gD/gn/LR2Lp0QJ/7bc/81Vu+/kD/FBjy0IrCXsq/7SBqVj5a67FRqjx16E7S/SoIa726S58b +l9TcuveBv+Ef8K/4F/wb/q58n97L+wgp94x6mf8pG Q38g22U+47722P1dK2/H5gP+W/drT85T4w0l+J+twmP5Gd2Y/4N/z7+vb1b9ltaUGzi+XIXznyV5 75qyob/AY/3xqFemm3Nud/vrR3f0K1Ll8o8gU+eaG+lb/DuoEVIv91uanmwf/T0enmveHRw192WxsKen VgGadSc8KZ896clV/nX9/NP1nw9l3g0/fmGYZqSP6X ylY+6iyUnY+edvjRV/PJe/Cjr+aT9/jnp/TX27TcE7LK3HbsMkWgW41su9ZJ32A5e6gm3V1X+ln9maTW j//gr2A9b4wTZG/uYVdFJ1aiu12ih055evM+ekNfa0g+JvyWJ34/sZ/4sRp80Y++drkuhFX3uskxrcZs 5p/YEhs5t17u8Bz3Slmhb4qj4/o4uID0Kzcrdob/4L /46XEColkaWZH0WL/4F/wb/s59O565v/AL/PIdT8+611uG3+A3+Nw1Q89S3+EP+AP+Cf+Ef8G/4N/wo7 9qfsZTpl3llgfg8eK5Gs/Cb/NsyF6xm2vUd6Pu9As1kT6ay20tcpxsb8DmV5Fjeq1bni+FmankOZi2ge RXbxm/v/o5Mn+VbX7c+ZNv6baPZPh/CoKxL4R1/I7f B/YT8E/4J/wL/oX93/e/Me773/CbnwzH/ev3+Zs59m1dd63Yb/m6cIM/55vl7+/69ah4ff6i6uv9eHhJ v/PnHjHAgshTrkeDK3Nq2V/6Zh+V+ir7Or/vQyPu+9DI/FWu/F4p91t94/ir09eMdiM/FchfBfJXEXe+ WWT+ysLamz1BglDI/D6wnwn/hH/Bv+Df8J/3Ks9e5j /iOgdNr1P/83UxUd/CE5CgMx+V8ZkYj+XbmcXy4qsj76/bwZjRN3oF6i25G5Lqpt14MG/618r2RnCZ+7 aL784XlLXf12R76In0BM3VF+AEc115R+radon inspector/HOV/W4MgOJg81Ds5/1YAX/g93c+UqyJ/S/sf8G/4b/5jd [file] ha5YIdp1ZDOj6K94UeZYO+YmN+Jennifer+M3g9OTmF64hT NgMjrR8ZRdKzDIuMG4YX4MoHa0pS+YmN+YmN+Fkyi7IOBDZ8KKtPFnDiSlNEB6/tWHNVvzV6WEzOdBQB j4Vkv9UXPrJxqYjE/FJpt9Ydgl1XLR1o95MK0WPsHKsqVtsDo3x0uSho6UqQfflKjV+Bxqy6VkayYRKA mqwCd6yLvkr89xXUk1JR6HBMrKbWLZsrYKQ5gxz5ki av4vYMBpaFjw7wVi8GujJT3uDlhXLHhdwiuteNx7Xu61OTFaHga1ZWgJHhgfbTkK4lwCyVKmmOdOSwVZ dRPzWh9cUKc+LVdYCKN7KEY56vI+qD/Wl1gPX2OYt2Bc8FgHFprBcVgJAODVfvnEmFnAKgSXvGXgSnFK cFzx7FPJyu8dZ8EvNKDNmJ3iLM8XxTtocTNZcjQzjS y5Rax0YKPbXpuPk8GDnsaFgMqETzMqaA6dYKpwC00HijN8/MaCv51rvddCQ2uKdPB4jaObobpiGaHwnh M4KrUfaq1EFFGogPqIntRXJaHLgGBmEJ3luaU1dhoE3Mbamng9T3jpPuwTAmicCkXu79QYVSi9HwNkhq VyWEhVtjoN1GvbjGw0Rf/wuJW0KiR6moLK8VOl6vx6 hE8OHVciaRszwUMMf6SVoxySEywBem5KycqDV5m8iQ8prVZkNlhApx86qo4H0ZJ5YRknij8Dt4mr3Mbd 8BCmjBq3HUyNDBPi6diqdC9UrGLwRq2jkiGXfjcT9p8gTBckMAjxrJhqowNqaC/Z1YE3t+B+3FVi3s86 N1Mw7VmahjkJM13jhe8nAng6hviBAN2ajPI5fLDatw xJBB3Xr4UD4VZ7QMY+xvKTyObs6Zi+UxwKVJj+MwXfMetiHpDSJQ2QDSuwFoVfoSuaF5mzowBPcNV9QX DbSWwMBcXNDRJg3T9ruNr+LRWGiGKvFSQHVwA7YcjjKXrp5LL6q6+ETpL8ZlMqKXD7TNWhAxtZnm8ELA JLWCHarZTnCEFKPtkCnLaNEP8tJrBa9Mn3I4+ETRZ1 50Us77Rg2kw3/mfmDMFv6jn/USsqSOKzzcE52d6cd7k4ZZvnGBBiccNQ7vXEryHDALimjb1SuIU9KxG1 Jn0mNJ+kg6XWmBYJ4u4XAdmPACzoYEvrrHUpbFP0JnSXGWrqsNg1eUFWhc9eHrmfI2bn1rkTelASdayF JjBX0Q5Hgfw0Pc8HEg5RUtVSqG7j+NOPExgkvLPzji hWxtCe2dEBmGeK1MKMcMoeLQZ3lAxO8YZePEX6nFlEg3VK1E0TbynWHlAi4c+8d8MYm0JD8y/yzpseR/ Mz6FrXdsm2QL05V+4nd/1uSOf2BKJwHWTg9p7i/9hfg93mqv//A65nKBwH4tlaJo6B++/fZXHz7+zdvf f/7x1/iQyps+n/ry55+X659MX6isCC68+EFcr0h1+a 9/VwdpornhE14/1iY/P+Yc+Px333/z67fvf/ndp88/fXj7+sPPv/zi86/evv/or2i2tOfsi0//pP/s7e 0a20kir/blxs0nHs79+cpae764/dUZDbFYokgd4l1NgsyxacgsB11+8/13bx9/8etPv/m2S9lforcdV/ vHLz/01gen1t137aVZzwk11pxmg/z03V/4eMnr/8df dWbt4Qqby/7l5x8//Pzt/vLbhy/+/h0tu1eezf3M8nz2Fqlo8/n3FYXZ9a3DVq7++PrzT99//PD23fe/ /Us7iw4098nyO67/9fnHOPlXH/77h+/eXj/lnf16s2352n7/sLv3lsZ034s+wknvaOE+6Rd/+uO//P7P f/jhd2///J9vv/pxd9kKYe52/Ku/izv573/z9vPPv/ nyw1dv//Tfiv/TX7/96Y9v/af1+mn8b/6Z+Tpmwm150/+st2OjIuzC/Q9/+Om/5vcEtkEL2aM/4VfA6/ 3+91Wp3Sg/QxCcnT5b/u55lwanDHRkBb7qhhJNCGbvnZ2XFK5PT/bFa/y+XT/urhCzuT/w8Yd/+eHPf4 7e+slh2s2q/urLn7/6+btff/fjh4mNX2K4upnBK//s /mJ27Pv+5tdjQ/oZlz/1CL9lgKCANEhOEJut8Ub//PHf//btz7/59x/enz14R3dFyDp8B3/qjyChg5N2 qif3Eq1j82pr//jvP/z5f//mX//C6Xen/zCSi9LbYr05Ax/h43dvv/uP18X//k9//LK5n4Swc06lXdpC N3a04G64+z7f5m2IjPhMb7tIcYz16B1m/xq8T65S7q /I64TzOs/y9/GzKezFn2u8xoc01/yfH/4yc93d51+z8pOff/ofF2o8iOl5L+PtP//8T3/9o0/teacher drama+Lr3/ utph11dIA/+M1//PY3//b73/zxR9/gXU8l53/88fefGVOuf/3n//rdpws//ulPf/jsej3/+48+stv71Z 9++1f5fRMGQ4FBzWNWT/z2f/2p3096AvKjmeLqBnP6 0WdDzkOf/bd/w4622871fM/+7r/+AAEA2tDwx/76hp011gon+n3v+/9/5U0Dyfj279gh/E7h1lpqd/7l 4l21YMvjC2D0k/tw3/E33nCSY00NgoqYrX8Qhlqdeu2l58HhMp9+i3s/Dn/+xRfffv/K71FsG9a3tSr4 jf1/NS3ZvrxszyZqoYFrOU7XHA0vl9OkKkE4KUMcv2 IuHJkpVCz6wHAdYTsqaxUka2DvlnbgS0Aki2SgHqNsISIeWzOsEjj1OLNmSrK6kXZhJmVbOELgB7OeRT JaDkF8DkUsJWFUNQ0SLVLtqnYuLtMjDMV+JeVySX2dkngqVUSpf0RgNVqqIQtfZJClH6K1kPirZHIsB5 RzlG10PRIrQ3IsmfW3OTP3HMTzEeRkZTFhsCPfWOIj IFI+AxJkTF9arbetAROil1KwFIycBRH0kD9dNXfUVVZRHWeWIMywEjL5r19zsqXHLYAbASKxBN6FfyWk vNxyyzKllEByEYI3OwNoNLO0VpSbBIW1WSRJWDJsORUgFEWbZUHhM6IdlCmvRBpTFQLCTSaSCAhlAvPv e7Y5GMXuksAWF36HSRAgKItHAmyuOOMwSWPuShgzR9 K7NdgxI5GmMA5EU2IwUXOcZTHNMEChyjTtOX2OpxFskJ2rUZeCJMEYHUwQJZcuXdI3w67lxiCSVKGeGF PjVBfkHWGiDMJzFZSsQWGhBKQkGVPiVQRlHR1IM0IhKPUgEIMHUWA4i0HsRXPrxkdtonbeYu1kbjSmDq o+LffuUBYqp3NqQBxrP5G6iFFmG8WwJ1SqQK1OlXEi ACebTKGeJCUhSWOmD746lpSyBR4+AX6ju4LcFdzaZRRFRPBgANLbINYgABN6CzReQUThMANtLOIaTjM9 YjXtTxYQRNAqEDT8MNL6KhTrPJFaUVGrUEstGSIjERX8YQE3MKOqWKWpCS3jTgThDNDaLek0VAUkXBAo RRLyjtLUJWGnZTWdJTTrQIF1OXVkSBIdXYxhZWByOL CyQPJ2TKSsHDBuQS6oPnWzWBExFWUoBkjtGIOkHFTalgOVESJoPTPgJEN4XuYvLHQiSNAfZAsaOSOgOH DbGzw4GQDfBNBrPV6oTdAjYPYxMHU8ZVlgZMPgUTNfpwBTWBJaUVMvIVAoNsGeUANoQSReRYqcYVRvKM XjZyMkVEEsAVQnUQ6qQkWcPLKmGYM8PPLkQBSkCAJu neHLNZQqEQZyMKx7FAOgVZMvEYQsFVdbCOIcLXGcOQI2AVWvSBBkOB6jCpQpGEHcEKGkERVrEGGlMJAq zlIAIDBnUOQeDPW8UGEeFWCpVTYmYSjsVPJzGYWfHjq1ZQDsGCZrGZ8sTrLtIAAlMDW0ZPEhSEMsUMKo kpHCPTWvLXK0ImhsJVNwMWTpATVeHBrrYUPmGRLfIj O5FJDcJGExHA7wPgXwYENnSYC0ZgHcJZUsPRWyzoHYJFNnDHSgRGO3KeXqLWQuOIKkJJyfJEQyEOCkWO AwQLF8NRF8MVJmGuPvBHbqNOVDSVnYT7GhqjTtAcELR2gtCa7xZaWnGDIVB9Hqc5JoSHInSUMLOv1+Cn M3MWT7kJNqOmm0RJJoItmzDJGMLc== ID Date Data Source [id number] 03/08/2020 08:37:13 AM EDT [facility] Name Value Range Interpretation Code Description Data Fide rce(s) Supporting Document(s) Leukocytes [#/volume] in Blood by Automated count 6.5 10*3/uL 4-10 [facility] Erythrocytes [#/volume] in Blood by Automated count 2.10 10*6/uL 4.6- 6.1 L [facility] Hemoglobin [Mass/volume] in Blood 6.3 g/dL 13.5-18 L [facility] Hematocrit [Volume Fraction] of Blood by Automated count 18.7 % 4 1-53 [facility] Called to and read back by MANAN IGLESIAS RN AT 5B AT 0836 BY 1590 Erythrocyte mean corpuscular volume [Entitic volume] by Auto mated count 89.0 fL 80-96 [facility] Erythrocyte mean corpuscular hemoglobin [Entitic mass] by Automated count 30.0 pg 27-33 [facility] Erythrocyte mean corpuscular hemoglobin concentration [Mass/volume] by Automated count 33.7 g/dL 32.0-[facility] width [Ratio] by Automated count 16.7 % 11.5-14.5 H [facility] Platelets [#/volume] in Blood by Automated count 163 10*3/uL 150-400 [facility] ID Date Data Source [id number] 03/08/2020 08:45:34 AM [facility] Value Range Interpretation Code Description Data Fide rce(s) Supporting Document(s) Bicarbonate [Moles/volume] in Serum 22 mmol/L 22-29 [facility] Chloride [Moles/volume] in Serum or Plasma 101 mmol/L 98-107 [facility] Creatinine [Mass/volume] in Serum or Plasma 3.56 mg/dL 0.70-1.20 H [facility] Glucose [Mass/volume] in Serum or Plasma 121 mg/dL 70-140 [facility] Potassium [Moles/volume] in Serum or Plasma 4.4 mmol/L 3.4-5.1 [facility] Sodium [Moles/volume] in Serum or Plasma 137 mmol/L 136-145 [facility] Urea nitrogen [Mass/volume] in Serum or Plasma 111 mg/dL 8-23 H [facility] Confirmed Anion gap 3 in Serum or Plasma 14 mmol/L 8-15 [facility] Osmolality of Serum or Plasma by calculation 323 mosm/kg 275-300 H [facility] Creatinine/Urea nitrogen [Mass Ratio] in Serum or Plasma 33 [facility] Calcium [Mass/volume] in Serum or Plasma 7.1 mg/dL 8.8-10.2 L [facility] Glomerular filtration rate/1.73 sq M pre dicted among non-blacks [Volume Rate/Area] in Serum or Plasma by Creatinine-based formula (MDRD) 16 mL/min/1.73m2 >60 L [facility] Glomerular filtration rate/1.73 sq M pre dicted among blacks [Volume Rate/Area] in Serum or Plasma by Creatinine-based formula (MDRD) 19 mL/min/1.73m2 >60 L [facility] ID Date Data Source [id number] 03/08/2020 08:45:34 AM [facility] Value Range Interpretation Code Description Data Fide rce(s) Supporting Document(s) Troponin T.cardiac [Mass/volume] in Serum or Plasma 0.07 ng/mL <0.01 H [facility] ID Date Data Source [id number] 03/08/2020 06:51:17 AM EDT [facility] Name Value Range Interpretation Code Description Data Fide rce(s) Supporting Document(s) Leukocytes [#/volume] in Blood by Automated count 6.8 10*3/uL 4-10 [facility] Erythrocytes [#/volume] in Blood by Automated count 2.17 10*6/uL 4.6- 6.1 L [facility] Hemoglobin [Mass/volume] in Blood 6.5 g/dL 13.5-18 [facility] Hematocrit [Volume Fraction] of Blood by Automated count 19.4 % 4 -53 [facility] No significant change since last result called Erythrocyte mean corpuscular volume [Entitic volume] by Auto mated count 89.4 fL 80-96 [facility] Erythrocyte mean corpuscular hemoglobin [Entitic mass] by Automated count 30.0 pg 27-33 [facility] Erythrocyte mean corpuscular hemoglobin concentration [Mass/volume] by Automated count 33.5 g/dL 32.0-36.0 [facility] al Erythrocyte distribution width [Ratio] by Automated count 17.1 % 11.5-14.5 H [facility] Platelets [#/volume] in Blood by Automated count 172 10*3/uL 150-400 [facility] ID Date Data Source [id number] 03/08/2020 12:24:11 AM [facility] Value Range Interpretation Code Description Data Fide rce(s) Supporting Document(s) Troponin T.cardiac [Mass/volume] in Serum or Plasma 0.08 ng/mL <0.01 H [facility] ID Date Data Source [id number] 03/08/2020 12:55:09 AM [facility] Value Range Interpretation Code Description Data Fide rce(s) Supporting Document(s) Leukocytes [#/volume] in Blood by Automated count 6.6 10*3/uL 4-10 [facility] Erythrocytes [#/volume] in Blood by Automated count 2.24 10*6/uL 4.6- 6.1 [facility] Hemoglobin [Mass/volume] in Blood 6.8 g/dL 13.5-18 [facility] Hematocrit [Volume Fraction] of Blood by Automated count 20.3 % 4 -53 [facility] No significant change since last result called Erythrocyte mean corpuscular volume [Entitic volume] by Auto mated count 90.4 fL 80-96 [facility] Erythrocyte mean corpuscular hemoglobin [Entitic mass] by Automated count 30.2 pg 27-33 [facility] Erythrocyte mean corpuscular hemoglobin concentration [Mass/volume] by Automated count 33.4 g/dL 32.0-36.0 [facility] width [Ratio] by Automated count 17.5 % 11.5-14.5 H [facility] Platelets [#/volume] in Blood by Automated count 211 10*3/uL 150-400 [facility] Differential cell count method - Blood [facility] Neutrophils/100 leukocytes in Blood by Automated count 84 % [facility] Lymphocytes/100 leukocytes in Blood by Automated count 15 % [facility] Neutrophils [#/volume] in Blood by Automated count 5.54 10*3/uL 1.8-7 .0 [facility] Lymphocytes [#/volume] in Blood by Automated count 1.00 10*3/uL 1.2-4 .0 L [facility] Variant lymphocytes/100 leukocytes in Blood by Manual count 1 % [facility] Lymphocytes [#/volume] in Blood 0.06 10*3/uL 0 H [facility] Macrocytes [Presence] in Blood by Light microscopy [facility] Anisocytosis [Presence] in Blood by Light microscopy [facility] Poikilocytosis [Presence] in Blood by Light microscopy [facility] Pappenheimer bodies [Presence] in Blood by Light [facility] ID Date Data Source [id number] 03/07/2020 10:07:03 PM [facility] XR CHEST FRONTAL ONLY [id number] RESULTI nterpreted by:HARLAN PortilloROCEDURE INFORMATION: Exam: XR Chest, 1 View Exam date and time: 03/07/2020 9:40 PM Age: 64 years old Clinical indication: Epistaxis; Other: Hypoxia worsening TECHNIQUE: Imaging protocol: XR of the chest Views: 1 view. COMPARISON: CR XR CHEST FRONTAL ONLY [id number] PORTABLE 03/07/2020 7:58 PM FINDINGS: Lungs: Unremarkable. [...] Date Data Source [id number] [facility] Range Interpretation Code Description Data Fide rce(s) Supporting Document(s) pH of Arterial blood 7.36 7.38-7.44 L [facility] Carbon dioxide [Partial pressure] in Arterial blood 45 mm[Hg] 35-40 H [facility] Oxygen [Partial pressure] in Arterial blood 86 mmHg 95-100 L [facility] Oxygen saturation in Arterial blood 97 % 94-100 [facility] Base excess in Arterial blood by calculation [facility] Carbon dioxide, total [Moles/volume] in Arterial blood 26 mmol/L [facility] Oxygen/Inspired gas setting [Volume Fraction] Ventilator [facility] ID Date Data Source [id number] 03/07/2020 08:22:04 PM EDT [facility] XR CHEST FRONTAL ONLY [id number] RESULTI nterpreted by:Lorenzo Charles [facility]: Exam: XR Chest, 1 View Exam date and time: 03/07/2020 8:01 PM Age: 64 years old Clinical indication: Epistaxis; Other: Aspirating, hypoxia TECHNIQUE: Imaging protocol: XR of the chest Views: 1 view. COMPARISON: DX XR CHEST FRONTAL ONLY [id number] PORTABLE 03/07/2020 1:02 PM FINDINGS: Lungs: Unremarkable. [...] rce(s) Supporting Document(s) ID Date Data Source [id number] [facility]:20[facility] Name Value Range Interpretation Code Description Data Fide rce(s) Supporting Document(s) [facility] YJXVNm7eGwUOJwGl61/PRZgiBIOkx8TdUTziKBa8NSjkYYLbL8QzLUW9dP0vMMA7ZNxVOiYoKlGbYTM0 lbm [file] ICAgICAgICAgICAgICAgICAgICAgICAgICAgICAgIC AgICAgICAgICAgICAgICAgICAgICAgICAgICAgICAgICAgICAgICAgICAgICAgICAgICAgDQogICAgIC AgICAgICAgICAgICAgICAgICAgICAgICAgICAgICAgICAgICAgICAgICAgICAgICAgICAgICAgICAgIC AgICAgICAgICAgICAgICAgICAgICAgICAgICAgICAg ICAgDQogICAgICAgICAgICAgICAgICAgICAgICAgICAgICAgICAgICAgICAgICAgICAgICAgICAgICAg ICAgICAgICAgICAgICAgICAgICAgICAgICAgICAgICAgICAgICAgICAgICAgDQogICAgICAgICAgICAg ICAgICAgICAgICAgICAgICAgICAgICAgICAgICAgIC AgICAgICAgICAgICAgICAgICAgICAgICAgICAgICAgICAgICAgICAgICAgICAgICAgICAgICAgDQogIC AgICAgICAgICAgICAgICAgICAgICAgICAgICAgICAgICAgICAgICAgICAgICAgICAgICAgICAgICAgIC AgICAgICAgICAgICAgICAgICAgICAgICAgICAgICAg ICAgICAgDQogICAgICAgICAgICAgICAgICAgICAgICAgICAgICAgICAgICAgICAgICAgICAgICAgICAg ICAgICAgICAgICAgICAgICAgICAgICAgICAgICAgICAgICAgICAgICAgICAgICAgDQogICAgICAgICAg ICAgICAgICAgICAgICAgICAgICAgICAgICAgICAgIC AgICAgICAgICAgICAgICAgICAgICAgICAgICAgICAgICAgICAgICAgICAgICAgICAgICAgICAgICAgDQ ogICAgICAgICAgICAgICAgICAgICAgICAgICAgICAgICAgICAgICAgICAgICAgICAgICAgICAgICAgIC AgICAgICAgICAgICAgICAgICAgICAgICAgICAgICAg ICAgICAgICAgDQogICAgICAgICAgICAgICAgICAgICAgICAgICAgICAgICAgICAgICAgICAgICAgICAg ICAgICAgICAgICAgICAgICAgICAgICAgICAgICAgICAgICAgICAgICAgICAgICAgICAgDQogICAgICAg ICAgICAgICAgICAgICAgICAgICAgICAgICAgICAgIC AgICAgICAgICAgICAgICAgICAgICAgICAgICAgICAgICAgICAgICAgICAgICAgICAgICAgICAgICAgIC BtQOq8D6vsRPCpIWRxBC8zJHg6Ep1+GJzTFkEeQDK1daDwvN5LAG2oo4GaSVpqWSGsi1GjATo0QL5DXJ XoIToeYX5OVDfyko6BVVTsFDTkzIPTi9wnCwCfFMP2 XNTeGfrrWT7LATKsA0oeqiZiYKVkBSPALQekQUEVDPcwGKGAHEBqHCDwWaUaArIkFGCzXQDiKAKMPTX0 DAQtYrWrKNfcJA9Xp0XxvYK1TBb+Hn9XWW9hw7ZyMIb1ANCdIF5fka8TNPnLVoYmJ0WjiyX0AJE6HIPv Ac5XGFOeBGClgVH0KKTvZLMNOhFoE7SwbF20IETRDs 4+UCvfpuRuLxeCRwA1XDKor1DaEPo3DC5FIMIrDOo6rVYgH84rj0BciXNbJmcoOirdaxWVHMCutdeifU vbQQ1oKZAeOI2hZS0bSLHvHHCiEgThEFMEWC2WHLQxJNYbiXCdWBWhJBPBWG3JBKfuSKZ9UHAvofEakC RrFXteYJ1IDBXdyyDsPDzjALBARNn+Mr7LFD7in5Vy DBu5OEQxZH2cuw2DGHiKTvYuW2J2gYOnT8J4YLagAd5WDCCfVWRxXXIeCVDPSFdtXK2ZNX0hqvH0DI0L iBQnEJXcAUIjlBObUAu5V74zgAEfXZjqUY3GUFD+Gerardo+Es3GKIBkPVHnLJXwJgEeGYKIRwLyM6UuW5IJ h5DqQ3UtUH64qOzqwkYjKHumNX0EAT4vHFSxXVNUYV 3YkRJsxY3isyV3ETIvPLZZVzNmT66fbQFxMCWiZIB5ZRUaKj1ISBGwP9HyjmOxbBjklqAlZXCtDZFYHU 2ARRcuhdObtQLmhJosTC54dIkgXZ2OEl2CQmNrLT0kvy2FpRMcBc5YPHH9PJ8YSVBzCVBrDGRpARV9QX LmUwXkVCgrYYNoNBEmXER9MGTqZXXxZH2LFhIyKXPy ICM8SWExPNChEIZrgs2ILSWrUHM5RfX8YpLjLDQvZWDjNUruMHTwHQRpNUT0GIToQEAbFZ9WSrTsVJXn GIW6DXTuGYAxRXBokd1DMKCiRVCeEBG1QYYdFWVwHZWvTKgqIWUjMGT0XLa5JZHlCDRoIP9TNxUbPWWm YBhdFFQbAETdTAQojg6OMLZoGWIrXCO9LBJwBSElUZ BxSXudPZDpLPIjZBStVRKnPSJuNM0LQoQiIMAnQTG4VJgoFAQhDRAetr5VDUDpSEGaLUy1ROSnUPRrJT AvLZdeIUGuATB0Lwp0SDUkJBUlPU0OLpRoLACxIHa4VOSoWNLcKYYwjm0MHUGpSGTmEfWpFrZgVLGeWT UpBLgxTCXkUFXvLdK3DEDpLAQgIO8PJkVeFGMiRgPj BiLmFGZnZEPlxz7VQPLwLEOiSQO4VtIdAQAjZUZqELbyPPVmIMF0GoW2ZFOmTTSyPG1JAkThWJRwByG0 WfZsMFGxCMPmaa8CGSUcQISbNhewAyMxHQHbVWKuWYipWCFmUKE0Xty6IXOjEXZmJK4CLwTqDZWwVzm4 PjpoCUBnVBMcgc1NTINgIYWeDAZ6YmWxGDQrOPMsQL pvIHJtEBI2TUV9SCMgHTIjWX3KHmHsECKsHgggDiMpYQNpCPOslj7QZHSiOKGiBLGfNqVhHOFpQIKoNY ccLPKwOGCiCoV3JZIhSGSvYI4OZnSrPBQmRxQ1XcWsENWoKHVmsy0AIKOeARZnJNd5BvLqRPUjADZrHO grYFJfOUVuOLU8EWVqOLCwOK9QUdOsSGXtXZZ7DqMy KCHbTQPbwh2ELAEkTXY6LtP9UNOhZEXzRJPnCYeaSHEvIJVvYRBgLXYpWDQsOT5HMdDrBLUbWZQiZEpa NPNyRPVlco3RNTAoOVW9IALeWvYnFRLyCFBpJZwxVPEbMBR2TCw5TGCbCEPbSI1NJnXxKDLuGVJtVmli NJPfHXFhqo9CYTBkDPF2OXDcFTFbGIDqDEQfYWatZF GgSHQ2TBNtOZDlYKPhDH1ZPmAlQUYaUPn6XbFlWANcPDPsse9BUELaONM0CYAfYOVbZZRlZQBaHYxjLP ImOSZdLELiHXXtYUZmKS8MWqSzVOLlRPDhFQTuPYLrDHAarn7DARPlZUY1ULN0ByXoGARiUNTqUXwrTC KlXJKgGPTqYRVtJBXsXE2WTlEjNDUnCVA7CHFrKGMq DHKqpy9LCCZkAQZ4LoMpHXJwCOYeJKOjZGjnKHJtRFBnWRilZWCyNWIjBT4BEpPjBZBtYFI1NuVyRDHx GRXdlf9AsTEsxXfomf1NYRwEUp0KkLzmHJNaSIclWz8jkCU3HOPfPDGEIa5XzwHaKHZnYLGUOTnzEYXu CIChEccdEdZmH0O8JxE9GsueLva8QGM9TVI0EWU9QT Q9WwY5DEP3BSKwFZRjTpauDeJnLPWqPYWhUgD2UGM2QHh0JUE+TS5mDHr+Zs4Uc4FlbmL6knMjAYx4Go d3Zj7DXETHR1UFUj== ID Date Data Source [id number] 03/07/2020 06:17:22 PM [facility] Name Value Range Interpretation Code Description Data Fide rce(s) Supporting Document(s) ABO and Rh group [Type] in Blood [facility] Blood bank comment [facility] ID Date Data Source [id number] 03/07/2020 05:43:57 PM [facility] Name Value Range Interpretation Code Description Data Fide rce(s) Supporting Document(s) Leukocytes [#/volume] in Blood by Automated count 5.8 10*3/uL 4-10 [facility] Erythrocytes [#/volume] in Blood by Automated count 2.16 10*6/uL 4.6- 6.1 L [facility] Hemoglobin [Mass/volume] in Blood 6.4 g/dL 13.5-18 L [facility] Hematocrit [Volume Fraction] of Blood by Automated count 19.3 % 4 1-53 [facility] Called to and read back by ANG Amaya IN 5B AT 1745 BY 1767 Erythrocyte mean corpuscular volume [Entitic volume] by Auto mated count 89.6 fL 80-96 [facility] Erythrocyte mean corpuscular hemoglobin [Entitic mass] by Automated count 29.8 pg 27-33 [facility] Erythrocyte mean corpuscular hemoglobin concentration [Mass/volume] by Automated count 33.2 g/dL 32.0-36.0 [facility] Erythrocyte distribution width [Ratio] by Automated count 18.4 % 11.5-14.5 H [facility] Platelets [#/volume] in Blood by Automated count 199 10*3/uL 150-400 [facility] ID Date Data Source [id number] 03/07/2020 01:26:38 PM EDT [facility] XR CHEST FRONTAL ONLY [id number] RESULTI nterpreted by:HIMANSHU LeeLINICAL INFORMATION: Shortness of breath and hypoxia status post transfusion.EXAMINATION: X-RAY CHEST FRONTAL ONLY, 03/07/2020 1:04 PM, [id number]: Chest radiograph dated 03/01/2020.FINDINGS/IMPRESSION: 85 degrees portable [...] rce(s) Supporting Document(s) ID Date Data Source [id number] 03/07/2020 10:52:56 AM EDT [facility] Name Value Range Interpretation Code Description Data Fide rce(s) Supporting Document(s) [facility] QTMXWq3xFkBMGvKp29/EFOovTFAlu6ClAKzkMQi3KPooPSIgM3VkAZM5iJ6tAYZ1FJyIYwWuYcNbSGZ5 [facility] [file] aEXBO8cVSU9D1b/ALbAEnqa7SsVVWTauHUAqIn/Larry ME1lbCyMbl6a+78RI7b+siAEOhaR7Ya26dE1vRLvVlo9CxodadLi3wjFcyfZz615BmocDEaP30eFwXsz IGObzGOA9khHPfofnw5mRef7WfXGT4cZRc50ytdIGrSIug+ZREcl48xiCldwb9ji6WBTpZOSpTLnfZHq 513k+CuhFsF1U7Ug6EvuFMfqwWiT22qa9e/UEiiqzF gdPBLQmrmyjgH2sRy6ZER88v+zrzwuvNYJ31mKfMsVWp8QzSyMCYsneNJ/ehbHL4d0fZI/+KEJUEBsgR IyYbNTKtmdgzUvd0csYi7xvpoLXrj8VRyjLuaRMKQ+LmgdsivSpgrbzRNgJ8knUvUfb9vDYn+UjxJObe z/XztsoDgZZ72nbxWuh0D/gLq+CHoa0BnbWRmfhDr/ tOapcucEDst9H9AJoof7z4s83qKU3DOFVTf7DZTfvRGCow6EFFDGf9fqfA5fnPmDGYYe4rKzDChsgAXs UxEy8vQjppImPU78RmLtqxlXJxNQfJQmFlNHrbx94V1r+6C7ON1+4Qia1oXilI8y1Lj1HXzOl6eske1R RbfXFOWEL12VoKeDeHSJpwB7OFSM77mXcjWVM7EnG6 +mO5n9+qovI5CsImM/RDx43nRp0f1pc+tAxg+computer equipment repairer/cX5DLtvbdSmsFZoOT6TTaLwPX6cfg6LBSmcDZMk [file] FIRE PREVENTION CAPTAIN/iQFuBpAbNcLmtJFuUxUrSRG2cxIGZdFDPqUEtk NDHeJp9ze1ob3Vxzak6VNr1bT8FaaJP6ar7Gg4K6VfxpR8LNekFCxlmDwzQC+84YbRTGvDA9U5pxLFEv kROkyFMlSIWiRc0HNXa/+nkoL6okLA+MDAY6FmregJiyHBcy/yHk9Njn4Y/bl00NB8Hg9PqBR+kctEtZ Kqgww/wKefWmfhKayVz8u/2T6n1d5o6MA0iNsfUkLe AMYIdgEZMKFnfcx7KjNWCidr5CFVhlg03Et2mQyhavi+HeYREo1E7VGm1S0uLzopVItZAHQFTDP1ZrDU LhpZNnJ3bXP4wuXKMnYFDKgwrPbvbt9kBcTMn2maiWbeDRM5WzJ/DDxZNPAc6yI4uVMUzjxz/PP56Y3M VPFRXWF6qm+FyiX5ANSjH3T9NqIKcKv+44jjYhkUYw yc8tD5oyom1ln+S6qr+b0lUc9GoPp+hQendSo7QiXGLhKJ76goVRvbfEnkWpc6E0PDNL10CDldGWuOAM FsxhN7lkZdV5WIiMSivyt2gXlN10lzeReikgJtZARsyJlRU5WqSqI6Cd/Opd69m+JC7xzz//5GYaULTj K478UUh7OMLO047LwdMq/BLq8TpcHGa7BJDMP2VtJw BDAjJDTo4iXzzEdD8qGdLtRZEwOnXimUu8KcmtuuYU20cZVhtQ0IxYysr2GQms087+h1g4fo/EfW1AiK epKiYPKjfKOeaGYfAiOY+amvTQKL1EREW8YVYx9RhmojyKhErO6FfVeesugS9GSASfZCh+EAwcLTWw1e XSKAuChvG8DrjUWo9EggvD9XwY6GOWoT982YDjCBC7 brJ1KtQJQZiOYCHvBd+OVOtuo26ju1h+TxHX4p1oI1U4dwOm37wSlHdhtdr6PycCCvAITCg48EjGk8po xRJ8ZJYrhE5JmWPUOqK3pJDkQVvIBDn7KyJYfNxpIwr/pvKnu+cthqQAZhQBfOSZjZr12Gyvgxl9UR6W WrMKEKC0AFPVgWMStvPQFOaVBe3EZRKeUvu3nE/Rfb [file] YDCQrhJEMfN50A58l/repeater operator/CoIGcoVA5XmtikXIpQ+r [file] GKY37T+PRODUCT MANUFACTURING PROFESSIONAL/7+/LlbzJZ244b5P5GnX/FX243bHyocdyEv+y/vT0PIu4JEz0Z5MWkSKWxMBNtULFQipdo9 [file] GIZhGIZhGIZhGIZhGIZhGIZhGIZhGIZhGIZhGIZhGI ZhEOLbAYMaIDIcBKLjMACrGWCrTDYdBG2abNMBveVTomWHyfBQ9bZiIyLJqlCLvlXJngQKcaaP74VWzx[facility] - [file] ICAgICAgICAgICAgICAgICAgICAgICAgICAgICAgIC AgICAgICAgICAgICAgICAgICAgICAgICAgICAgICAgICAgICAgICAgICAgICAgICAgICANCiAgICAgIC AgICAgICAgICAgICAgICAgICAgICAgICAgICAgICAgICAgICAgICAgICAgICAgICAgICAgICAgICAgIC AgICAgICAgICAgICAgICAgICAgICAgICAgICAgICAg ICANCiAgICAgICAgICAgICAgICAgICAgICAgICAgICAgICAgICAgICAgICAgICAgICAgICAgICAgICAg ICAgICAgICAgICAgICAgICAgICAgICAgICAgICAgICAgICAgICAgICAgICANCiAgICAgICAgICAgICAg ICAgICAgICAgICAgICAgICAgICAgICAgICAgICAgIC AgICAgICAgICAgICAgICAgICAgICAgICAgICAgICAgICAgICAgICAgICAgICAgICAgICAgICANCiAgIC AgICAgICAgICAgICAgICAgICAgICAgICAgICAgICAgICAgICAgICAgICAgICAgICAgICAgICAgICAgIC AgICAgICAgICAgICAgICAgICAgICAgICAgICAgICAg ICAgICANCiAgICAgICAgICAgICAgICAgICAgICAgICAgICAgICAgICAgICAgICAgICAgICAgICAgICAg ICAgICAgICAgICAgICAgICAgICAgICAgICAgICAgICAgICAgICAgICAgICAgICANCiAgICAgICAgICAg ICAgICAgICAgICAgICAgICAgICAgICAgICAgICAgIC AgICAgICAgICAgICAgICAgICAgICAgICAgICAgICAgICAgICAgICAgICAgICAgICAgICAgICAgICANCi AgICAgICAgICAgICAgICAgICAgICAgICAgICAgICAgICAgICAgICAgICAgICAgICAgICAgICAgICAgIC AgICAgICAgICAgICAgICAgICAgICAgICAgICAgICAg ICAgICAgICANCiAgICAgICAgICAgICAgICAgICAgICAgICAgICAgICAgICAgICAgICAgICAgICAgICAg ICAgICAgICAgICAgICAgICAgICAgICAgICAgICAgICAgICAgICAgICAgICAgICAgICANCiAgICAgICAg ICAgICAgICAgICAgICAgICAgICAgICAgICAgICAgIC AgICAgICAgICAgICAgICAgICAgICAgICAgICAgICAgICAgICAgICAgICAgICAgICAgICAgICAgICAgIC ANCjw/xHJgT8gjqHNotdW1N8iuVt0KGg9WUO9gt8YeAAKvBYzpdmWgSgaVHiUgFKOiGzaDAcl8PFviSM 8AeTZcL0DdH4RnRVxjHA1FFHYgXBFleKYiEQUeNPAj LqP4MFFkWVrhYD4AwUVnCEoaCNWsIBZzJsVlJCZbJDCmQOIrJROvDEVMHGPoANXxOtAvDOHaACSpDOgl FBJHTHB5DOUtSoMuTDOhZZWnHlTyOXUVLC8FJkQhP9CbnE21XQEcIXb+Bk3FTK9ta4HnLCx4OJYzRN7x hp1RSZuPOwHaV8ZbhyV6MVMpQNAqWr1QTWNhVHHyhJ W6EhUtOTBRGkHjH4HifC07NORBWm0+LYmsyaRnIkxBJeGmIFIuv9VqYXt1ND2MZYMlGTj5zTNfY25xu2 PleCUaMelgZ4aoBB62RVFClFGmur1wfrihDQ6BIvIgKHZhAM9kZA7kCETaPWG7HfOrDTEHZW1IPBUuNR IfwZZwDOZxECZHUJ2YZUkeKSJ6STKhnzDzfTDnSXzc VE4LOGLvojKvNMVkDBWKPKj+Lq4ZPD9mx1ZnWDh9NpApFV3cmv2BZXsVUuOsI1T4fEBoJ2A3OUteRv1S BOSuTYUjVUkoHMOPDVhxYY4SAB9bsqX8QP9XoWFyCJSiKLKocETfXBd2B32acUSrVOylYG3BSMU+Gerardo+ Qm9FAZDuQUIaBKPvVlRvYWVOYxQbN9BuJ3XDb6GuQ1 BiIP88yIusavSlWPewVL3JJU2xRVBoIDFPPL3XlZZczI1fgkM2OJXmLQRZMtAbG21jvEWmOTVpRMFqLU JwHm5AIMXzX8VykyEbcLaaymFoVYNqNIQXPO5NFQrhtaLzxYYzeYikWX02oFmhPU5NMj6ERjVnMF2tmy 1TtCIoWt0PVAB5BW4JTZFxSXAhVMLsXXI9AVGlRcBz DNocEPIkSMIvLTL5ZUGsYNYeLX3OBzHkUAYpIyFtZRHbZGAvMPAdvk0TSKTsSMDwBxE0CrZmYIYxSZYa YSavBIUpWIOnQXB5USKbUBFuFT7WCqPrELPvCTAbXqSfWRCpAWUjwz7HFRDiABCsBYN9XMArRXEyTBIr GEhxUKQqSVG3XMY2JKGdVTGjHN0BWkKcAHEwONhiTn swYQMpQFKudu4RHETqWLZsYQM2YQWtAXPeJZHfDQbtCZSjTWU5GNS4AXGzJHJjHZ6XIwHwUYMmCITjNT ZqWTCqBWSjyp0UNPKeUMRjHsPoWhHyODApIVFaBOjpFNFrEMF8KBNoMBIlNJHiZS0YGeChVMNyPFZ6FR teBLJtAXLqwe8RUWWdVBGaTHRtXbNnSDDyAGCjGKxq NVGaIAN8CoF2PKRxBLHfZF5NRqCmWUKwDBj0WTPdXBIqNLVigy2NEPXiBMAgTSQ1OxFoUKFuQIQaOUay REKxWXRaSeh0EYMaAFHfAP9TDuPsJZEoUnM3IGKlLFHwYPRtam9RBRXzKSTvLXp2YPGqELBtAPVtWMfd KLBuBOI6NHW0NSOcTZDcFF8BVyOeZZSzFzR8GrxxJK EnVVZddl6LMXDfTPCjVCd0SCUkMWVuAHUfBYdnVGWgZSD5FSS2UZWnXDSdOC7OFePwLKRcYoiuMGMqIJ RlYWLcft0RXESfYDOaOlLbGCCyYIEqZUHjPIgtDSWpUIO2ORzoZJLxWFNiUC7JHyFwBTNxBlrdRSAtQJ IdVMRmaw9ZUPWtCCEtTWW9RmQvNHMaVRClRVeaEWSl IVP0EOMaABEwBCBbFM1RJaUwRKBpTzm2MpRhPBFwGCBldx7QBKCdAGRuKByhNvEgIFShNOMqZPxdTMTh SIMfRgo1PYObICNaMT0DXvEcSKSrBNQ7RPMePWIsDNBgts6TJNQhLRQ9MXhxKIDuUNDvJCPoHPsjJGJe UDXtJDZ6KNPlTUItGE2URiNjVYKfCONiYSEmUNWeFY Hoyf5CDAHuEVO8LrQ8GCAvBKXtTRQdJVmuWQUsGTHiFrNnCUBhGHMrZP5UFhDwUFJtBSG1QuYhWCIbBO Njam2ILCThWQQ9VofxSCJaGKUhSKRmJHwyHBIrJBP6IsE6CZLlQOWxFB1MJyEzZNItOLGaXiYpZGIrFL Kiue3RLHGrLNS3Psi7FFVdWHUcRKKvPTqvSZHmOOb1 FQD9TIWmDLNsUQ7UHsIvNLPmNdK4OuZyBIAgEEPink6AHLQpYVY4KdqqNxQuPTVtSVLqJBqqSTGgQdJ8 RjejDNWqBCUjSI3GHkPtAHFjHxV1MLZyILJxFFOdxk5NEISjYSFwJeP3TdWbJECxRFAdCKjjXUAgVyG1 KPX7TIXtAKPtFM0KSzQiHRUuGzT3LgNoPAAnHTZxuo 9XnKRhkRseia2VGNqVPs7CcBwxEHK7ZUksUx0kfTT9ErHgLFBYCm4CopBsFFMlXMUSCRdaEFSeZME8KY IrSBD7TIUwDCZzTWCnNYX5ZfR3UzrrBas0XSX0MiA3KtcgRIGiGANaZyIoWWZmGZL9LcLpIhToYMNfVC Q5NDc+IY8qUFn+Ua4Ad9BjlqX5suOgKEbcRsD5XJLDUyHkOK9OVBp= ID Date Data Source [id number] 03/07/2020 10:52:46 AM EDT [facility] Name Value Range Interpretation Code Description Data Fide rce(s) Supporting Document(s) Progress Note [facility] MOIVDi2eIlCGJdUz15/XAGxiVWScr3MjBKtpCWa3LPdgEZOcC6RaLJA5aT9bNZT7JUhPBiOhFePrZYC4 lbm [file] AgICAgICAgICAgICAgICAgICAgICAgICAgICAgICAgICAgICAgICAgICAgICAgICAgICAgICAgICAgIC AgICAgICAgICAgICAgICAgICAgICAgICAgICANCiAgICAgICAgICAgICAgICAgICAgICAgICAgICAgIC AgICAgICAgICAgICAgICAgICAgICAgICAgICAgICAg ICAgICAgICAgICAgICAgICAgICAgICAgICAgICAgICAgICAgICANCiAgICAgICAgICAgICAgICAgICAg ICAgICAgICAgICAgICAgICAgICAgICAgICAgICAgICAgICAgICAgICAgICAgICAgICAgICAgICAgICAg ICAgICAgICAgICAgICAgICAgICANCiAgICAgICAgIC AgICAgICAgICAgICAgICAgICAgICAgICAgICAgICAgICAgICAgICAgICAgICAgICAgICAgICAgICAgIC AgICAgICAgICAgICAgICAgICAgICAgICAgICAgICANCiAgICAgICAgICAgICAgICAgICAgICAgICAgIC AgICAgICAgICAgICAgICAgICAgICAgICAgICAgICAg ICAgICAgICAgICAgICAgICAgICAgICAgICAgICAgICAgICAgICAgICANCiAgICAgICAgICAgICAgICAg ICAgICAgICAgICAgICAgICAgICAgICAgICAgICAgICAgICAgICAgICAgICAgICAgICAgICAgICAgICAg ICAgICAgICAgICAgICAgICAgICAgICANCiAgICAgIC AgICAgICAgICAgICAgICAgICAgICAgICAgICAgICAgICAgICAgICAgICAgICAgICAgICAgICAgICAgIC AgICAgICAgICAgICAgICAgICAgICAgICAgICAgICAgICANCiAgICAgICAgICAgICAgICAgICAgICAgIC AgICAgICAgICAgICAgICAgICAgICAgICAgICAgICAg ICAgICAgICAgICAgICAgICAgICAgICAgICAgICAgICAgICAgICAgICAgICANCiAgICAgICAgICAgICAg ICAgICAgICAgICAgICAgICAgICAgICAgICAgICAgICAgICAgICAgICAgICAgICAgICAgICAgICAgICAg ICAgICAgICAgICAgICAgICAgICAgICAgICANCiAgIC AgICAgICAgICAgICAgICAgICAgICAgICAgICAgICAgICAgICAgICAgICAgICAgICAgICAgICAgICAgIC AgICAgICAgICAgICAgICAgICAgICAgICAgICAgICAgICAgICANCjw/pYVpX1hqjJWcqiC8W5xoSa7BGc 4AHJ6dy4MuGVDpVCayouSlNosTJuUcXVUyVrqYApc5 IRnkQR4VfPUjP0IoC3GhOHoiWQ0FYSCbYSHxrUAiRDMlXHRfUgP9QMQcLPvqKB4KpAMeBQnpSYUsQRKb JhVzSTKaTN4ZAWXgJ710jkQzZg2PJl5VWfJkTB8slu0TEGYrJBThDvrNFoj8WSpcSD4JfPKpnWDiFeOy UQDFQsWkF5rsb7InOIplTVAAYBziFL0Ru4CmcTUrAC o+Xr6KGW1ag5UeQExfIqQpKE9hkb9SMWuCXzJlH5YheSwfFDQvr9dbBQYyKE1bbJWtFYK1JK5dBVccYK 4sQj65NAdlGQhlZa8eIFWaIC2yDQ1kYNEwWRIlHqJ7TIBNCI4UKDRgWWIudACwBAVhNMSTMA6NYAkeDR Y0KQIwgfSgjSWhTJadRL7FCIXzuxGrXUWvVLSKVOo+ Ed8ICN6tz4JjTNbqHRUeBH9ddm3RXAtCGlGcZ2G5vIAuM7N6BYvpKy3BLQDnYCPvGHFcDHRQGJpfUI7G UT6ekwE7KJ5VjZMfOOIpZLGmmZTwSIt2Y80nkUKzMRdiGT1KHIP+Gerardo+Mk3QDGIiRFQaDDJbBpAzHYHD NuTeY1QhH1XDg1TdK4VwIS65dGzxnvNiLRbhSD4YYW 5oKUMpYODLJQ1ZlGRtxP6qluOqZyTyPZQWVjAiZ02vvEHpTJKdMWX3MQFoBc4RHAAuO9VbbiItmYaxcs TzGPFfDNUNGT4TFQgfygClgVSftTwiEP85dOpuBN7QXs5TStXuHZ5phc4MuDYsKw4DXXHnBJ5BDMYsXB InVQGaYWE1BIAlNgAbSQsqKEZiRDKkMCU2HMIjLSZi YQ7WLkUhPDKeAJn3IcYpOXYyYZExad3JITFeYUQdAKT3GZXsPKFdPNNsAAhyPWLuNNJcQZQ8VWUyTNVt RA9HDpFaGXRxVNAbIZUyGEVyXYFkrj0VJZObCTLoUyDhBWYdZFPqPSEsPEqiKAThXZW1OHZmBMIkGZIg AP9ASkHuHMZwLQErEiNiHEBiDVJimv5UNQMvTFHgPv JpIeLxTRQgYDVwLGdeSVJdMAU4FkY4YXMfBHVoWU8IPcFpBWHxTYs8CMHaCMBcUWIkev6JGFBjWZFfWZ P5HTWnLQSsCUHcWGfaXJIhYRT9RrMyQZRaWQMhZR0XFcOuCJKfZHe0PRynKHEaNZWsqy4JZFIhWVBfFU K3YONmJHPgBHZuULdcKUXpWAAjNos6IHRrJFKnUZ2X CjGjVWEzLZQ8ZbwfEFWlHHOxug2SHHExSTNhYYgoMTZmUQOjKGHaRZs9gqLloDOrSYi5JM7BX3ZwahOs EBeQFi4Gm275GWC3LBXeLv1NV9xbFd4vWEHcKGRCSp7WRFl7D7IlDGtlLAM9L4XvEaK3KYA2HAO5VyUf OkA1JTqcWLH+DQowYVBiZ8FfFPL9XCPyYmRsOZp1RL jdTrD3ZTJaWWZrFe4ePVXIXd9+SXskaTOsrYurBYBRNoMrPFVeLKyfNKKDOe6C ID Date Data Source [id number] 03/07/2020 10:17:32 AM EDT [facility] Name Value Range Interpretation Code Description Data Fide e(s) Supporting Document(s) History and Physical [facility] KRLVFx5aHfRSXyPe39/DXFzqASTcf0IlVUkhDRm4HOujUUKsB9KhQQG1yP8pEHR4HNhAHrBcHbUdFIR6 lbm [file] ID Date Data Source [id number] 03/07/2020 09:15:08 AM EDT [facility] Name Value Range Interpretation Code Description Data Fide rce(s) Supporting Document(s) [facility]Xi48/EGLhdKUShn3ZpZZwiFSs8GGzoVCXtM3ObRUH2nQ1vVDO6XEjJOvJdJaSkTVG7 lbm [file] AgICAgICAgICAgICAgICAgICAgICAgICAgICAgICAgICAgICAgICAgICAgICAgICAgICAgICAgICAgIC LgHMQbLNDrLUHpIY6VKRKaWAUgGDJjFRJsGIRuGPYhCLUdMMHjCIVdGJSrMPSiXSFeRHWoNENaPIDxOC AgICAgICAgICAgICAgICAgICAgICAgICAgICAgICAg YYEeFMFaGDOePDIqSUQaEOHcYKCgQP7QKLBpPAWnTSGwKXNnLNFoDLUqVCUjTGLoGOExCTZxFQVtRYKn ICAgICAgICAgICAgICAgICAgICAgICAgICAgICAgICAgICAgICAgICAgICAgICAgICAgICAgICAgICAg BHBsGH8ONWUlTBHpQXOfYUGrUONgSUUsEXAdEHUcQU AgICAgICAgICAgICAgICAgICAgICAgICAgICAgICAgICAgICAgICAgICAgICAgICAgICAgICAgICAgIC NlSVMxSNMoJQMqTJPxIM3WOSSxGOKnCOYaMPVqRZPyJDCwTDRvNSYkKXYtDPWyCPPhZNCyDWFrXHFxRO AgICAgICAgICAgICAgICAgICAgICAgICAgICAgICAg BWIgNOVrHSBvIQOqDUBdAHHzCYOfIKKwWW5QVTWfDWYpAGAmRISrIWRcNMHlVVAlRLImVWAmOHVbFMEh ICAgICAgICAgICAgICAgICAgICAgICAgICAgICAgICAgICAgICAgICAgICAgICAgICAgICAgICAgICAg AMHuRCIqOJ1HJAOyIVOqMDSiNOHcGAOxNWLsXHShNI AgICAgICAgICAgICAgICAgICAgICAgICAgICAgICAgICAgICAgICAgICAgICAgICAgICAgICAgICAgIC CiQAYmKZLvTMNlITRtYFXbRO2CUIKjSTSnVJIoKBGkQBJxEKShYZJzBZQxZBInSEMgAJMoQGGbNJKoEZ AgICAgICAgICAgICAgICAgICAgICAgICAgICAgICAg RRLiJJUsNJEoWXYdPYPlRUUgNPRiRZOvGGGuWV7VOVNuNIEmQHIdEMBqGRAbEIMqKGTbDBClAGMgVMYg ICAgICAgICAgICAgICAgICAgICAgICAgICAgICAgICAgICAgICAgICAgICAgICAgICAgICAgICAgICAg NBWcIGItNCZoRC4IXTHrXJSqPKWqFRTtRMOrNARlBS AgICAgICAgICAgICAgICAgICAgICAgICAgICAgICAgICAgICAgICAgICAgICAgICAgICAgICAgICAgIC XcSPNqHMPkMOOuWWXyTKNsFERlHU4SBF80iDNzj1F8NKVuLS7uojv/Ly7VAGejohTaqQRgLG7KHtZrEY 3biu7RFtFyRH4uzi2BGNsHAqTyK5E2oTLhHQRsTFPN PjEaA50kAZvcPl83IMwmQKVgMpFsYMr9Rp2NDeZgX9azUKTbYjP9LOPhMqCyUEgjUG2Ih8LrlXTvWDy+ Mm0MGS8kt2JjQKtxIFUhXS9llp3DJUiRYlAhZ7HzogG1AKT9DAXvYo8XLNQuNZSvsAXfVIMgVQCKApTp A2QheJ22WFRPIv6+ZQndvwToVvcUQaT5FBSui5ZwGY q1EU0SSNVaYHb6sQTlUBSnL6Mkp6RlKv17FJEoGvhmUUAusHQ0FXUlIrwzketwSx3sKKVdXA5zIL9gJJ EtMXZ6UuHtGVYSOV8QXLKnOAIyzBEsCSKnMZMPOP1OCFmgNEM8GPByolNcwZMjQFmiXP6GESGvyxYjZH QgMCBSDQo+Jh2LMF0ch5AoLZsuRyWsBW3kgk5HJZdU RtGkW1B4jASmS3R9CShfUj4UPJJtDOTvQUEhRWCQNEpfPN8IWW3nutV0DG2XrYGmEFPnNESjbCCbLJf5 E56aoLBpDRiqFN6PBFL+Gerardo+Wt2IYJKoSBEjECLmUtZqEJPKIhIvL5RgC5WRa0KeM6KvZS43lObahdZx BWynHB7XQX8tDCLfAQVYOJ1JjADddM8itgJvQBGrEG RXOaRxQ29cdUCdAZQbBTUyYPOtFn2JSHLdO8NrdeYpgSmlnlKdDMFdLSUMAC2TDXttxmEeoHRtlQqtFF 43iLdsBZ1VCh2QAkLnHV8aht7QfHBrSa9TFAEvCm0WXOVuNRPrMWHzGIH9JSXvFjXtQFzrJXAhZQKiJF J2DAYyYOSvJV5WKnJgPEPhHTU7MIWvUXLcCRRtel5T ULGlSRIgQxNuDsJqUEAjTJOjDPshHUNdIXMfVXC3QXPmASZySD4OMzKsVZQrISC8NCCaNGUmLXWmzi4I CUZpMPYsETzrTTTtVHErHRSyKElkSBDbUWYbJWU0AEKkTYYgOA2GRvRnNSQcICEoRkCzEGDrLXRuwh8Q LIMaVEEnSzT7XSOnJYSlMCBuUYjcXKMxYPY5LtOsSE BiYWVdMT3LMdRmSEQkCBR8DNSrKGPrGSUowq2JPTIoIONvXSK7OkTqDGOxKWUqSSprBZGdXFX5TAj7UP DtWUPnPZ9AQiPlOXIqRZE4JiDgXLQfGLPymh0MKQWeFAWcJuZrJYNwYSVwHQGpAEbnDFQsRGS6EiPwDW UhGVZnKR2ZJpWaRMjvRZVPFmd6VGygD9i8ESGoPs3D J2Vem5FlXBUqAVGYDXnlSL6bydUqXJEkKo2BW4jNGuhrARGyFIMkFST5BMHvScmeDBIyOMFjLZKzT4Qi BIByYr8hOOUmGKK9WNN9SODvXeCzFmF8QKH4EIBgNMHqCDW4CSTfJoXpLI5ISd4STfM9VIN4aPDrTj2S Jxm6Um7AIAAMX2HVXq== ID Date Data Source [id number] 03/11/2020 08:11:22 AM EDT [facility] Name Value Range Interpretation Code Description Data Fide rce(s) Supporting Document(s) ABO and Rh group [Type] in Blood [facility] Blood group antibody screen [Presence] in Serum or Plasma [facility] 03/10/2020,0000Performed at [facility] Otilia saenz [facility], [address] [place] [address] BY 1753 ID Date Data Source [id number] 03/07/2020 08:34:01 AM EDT [facility] Name Value Range Interpretation Code Description Data Fide rce(s) Supporting Document(s) Progress Note [facility] FJTNYt0iCoKJPvYs39/HGPknFTOcr1AdUVmoNQl5BNxjOXVoF2TkHGM4yI6iVGP5KSfJZzOqCaPsHLG4 lbm [file] ID Date Data Source [id number] 03/07/2020 07:14:58 AM EDT [facility] Name Value Range Interpretation Code Description Data Fide rce(s) Supporting Document(s) Bicarbonate [Moles/volume] in Serum 23 mmol/L -29 [facility] Chloride [Moles/volume] in Serum or Plasma 106 mmol/L 98-107 [facility] Creatinine [Mass/volume] in Serum or Plasma 3.82 mg/dL 0.70-1.20 H [facility] Glucose [Mass/volume] in Serum or Plasma 92 mg/dL 70-140 [facility] Potassium [Moles/volume] in Serum or Plasma 4.5 mmol/L 3.4-5.1 [facility] Sodium [Moles/volume] in Serum or Plasma 145 mmol/L 136-145 [facility] Urea nitrogen [Mass/volume] in Serum or Plasma 97 mg/dL 8-23 H [facility] Anion gap 3 in Serum or Plasma 16 mmol/L 8-15 H [facility] Osmolality of Serum or Plasma by calculation 330 mosm/kg 275-300 H [facility] Creatinine/Urea nitrogen [Mass Ratio] in Serum or Plasma 25 [facility] Calcium [Mass/volume] in Serum or Plasma 7.6 mg/dL 8.8-10.2 L [facility] Glomerular filtration rate/1.73 sq M pre dicted among non-blacks [Volume Rate/Area] in Serum or Plasma by Creatinine-based formula (MDRD) 15 mL/min/1.73m2 >60 L [facility] Glomerular filtration rate/1.73 sq M pre dicted among blacks [Volume Rate/Area] in Serum or Plasma by Creatinine-based formula (MDRD) 18 mL/min/1.73m2 >60 L [facility] ID Date Data Source [id number] 03/07/2020 07:53:00 AM EDT [facility] Name Value Range Interpretation Code Description Data Fide rce(s) Supporting Document(s) Leukocytes [#/volume] in Blood by Automated count 5.3 10*3/uL 4-10 [facility] Erythrocytes [#/volume] in Blood by Automated count 2.31 10*6/uL 4.6- 6.1 L [facility] Hemoglobin [Mass/volume] in Blood 6.8 g/dL 13.5-18 L [facility] Hematocrit [Volume Fraction] of Blood by Automated count 20.5 % 4 1-53 [facility] Called to and read back by HARRIS Cooper ON [address] AT 0750 JRM Erythrocyte mean corpuscular volume [Entitic volume] by Auto mated count 88.7 fL 80-96 [facility] Erythrocyte mean corpuscular hemoglobin [Entitic mass] by Automated count 29.5 pg 27-33 [facility] Erythrocyte mean corpuscular hemoglobin concentration [Mass/volume] by Automated count 33.2 g/dL 32.0-36.0 [facility] width [Ratio] by Automated count 20.1 % 11.5-14.5 H [facility] Platelets [#/volume] in Blood by Automated count 199 10*3/uL 150-400 [facility] Differential cell count method - Blood [facility] Neutrophils/100 leukocytes in Blood by Automated count 69 % [facility] Lymphocytes/100 leukocytes in Blood by Automated count 24 % [facility] Monocytes/100 leukocytes in Blood by Automated count 4 % [facility] Eosinophils/100 leukocytes in Blood by Automated count 2 % [facility] Basophils/100 leukocytes in Blood by Automated count 1 % [facility] Neutrophils [#/volume] in Blood by Automated count 3.76 10*3/uL 1.8-7 .0 [facility] Lymphocytes [#/volume] in Blood by Automated count 1.26 10*3/uL 1.2-4 .0 [facility] Monocytes [#/volume] in Blood by Automated count 0.20 10*3/uL 0-0.8 [facility] Eosinophils [#/volume] in Blood by Automated count 0.10 10*3/uL 0-0.5 [facility] Basophils [#/volume] in Blood by Automated count 0.04 10*3/uL 0-0.2 [facility] Nucleated erythrocytes/100 leukocytes [Ratio] in Blood by Automated count 0 /100{WBCs} 0-0 [facility] ID Date Data Source [id number] 03/07/2020 09:55:10 PM EDT [facility] Name Value Range Interpretation Code Description Data Fide rce(s) Supporting Document(s) Natriuretic peptide.B prohormone N-Terminal [Mass/volu me] in Serum or Plasma 4927 pg/mL <125 H [facility] ID Date Data Source [id number] 03/07/2020 02:31:37 AM EDT [facility] Name Value Range Interpretation Code Description Data Fide rce(s) Supporting Document(s) Progress Note [facility] MRZMSk4wJnHWHwLi66/NZNueKJAha3CjZMibDBq7UQijLWRgK1PlLAX1lJ6yPZX4ZAuKOgZrXjNlYIO2 lbm QkKpvHExNcMHJwOmfQCvUzEKseQcyhuRMuLV9BhHO8HRMtI16tSNSuKKHnK0OnPGJ5PbF+Kl8WPOChoP QhNB8QKabW5E0af5n2Hl8tUN2Ceg8RBvRNAlRLWM5qiS9kmE9Dgp3QIL/JPF4SPgKjCWSz/a/9E9swb5 MRe8u4pzlPnDbG31IVnXzGy9+XDSU9c1+Dd1LsTHP9 f/1lUVIyXZK//12Xl7S9x5263T2BH9RTSRO+IA3m7jLEarvu8EpQVFDgwFpGBjL1Pu0XXZdYx4djn2LZ k6rc58UVdm5A45V8/XXGKJsGNBmaUebHIN3cIoC5PBF8Ky5tsmlZfy9hRkZLqtVZbby/PQNAp/peG17A ip/BECKlkGACQwpD7+Ctainz4H/PVXwyIR+8twE66I arcadio/R3PqzXStyk6siKOdPQgIN0gaMGtZJXZuA4TKNQKx5T8yfoIxKUG2i1ugtgcN2farHoVyIBvXz+Lo [file] XcTCyjDNZTXv6W ID Date Data Source [id number] 03/06/2020 11:26:47 PM EDT [facility] Name Value Range Interpretation Code Description Data Fide rce(s) Supporting Document(s) Discharge Summary [facility] BLAMBx3tGhQYNoHe37/HDVmmQANjq1WqAJbfWGn1ZFwoRXAyC0VoLBA5mE0cWMO8USvLKlZxEoVkCJB6 lbm [file] ICAgICAgICAgICAgICAgICAgICAgICAgICAgICAgICAgICAgICAgICAgICAgICAgICAgICAgDQogICAg ICAgICAgICAgICAgICAgICAgICAgICAgICAgICAgIC AgICAgICAgICAgICAgICAgICAgICAgICAgICAgICAgICAgICAgICAgICAgICAgICAgICAgICAgICAgIC AgICAgDQogICAgICAgICAgICAgICAgICAgICAgICAgICAgICAgICAgICAgICAgICAgICAgICAgICAgIC AgICAgICAgICAgICAgICAgICAgICAgICAgICAgICAg ICAgICAgICAgICAgICAgDQogICAgICAgICAgICAgICAgICAgICAgICAgICAgICAgICAgICAgICAgICAg ICAgICAgICAgICAgICAgICAgICAgICAgICAgICAgICAgICAgICAgICAgICAgICAgICAgICAgICAgDQog ICAgICAgICAgICAgICAgICAgICAgICAgICAgICAgIC AgICAgICAgICAgICAgICAgICAgICAgICAgICAgICAgICAgICAgICAgICAgICAgICAgICAgICAgICAgIC AgICAgICAgDQogICAgICAgICAgICAgICAgICAgICAgICAgICAgICAgICAgICAgICAgICAgICAgICAgIC AgICAgICAgICAgICAgICAgICAgICAgICAgICAgICAg ICAgICAgICAgICAgICAgICAgDQogICAgICAgICAgICAgICAgICAgICAgICAgICAgICAgICAgICAgICAg ICAgICAgICAgICAgICAgICAgICAgICAgICAgICAgICAgICAgICAgICAgICAgICAgICAgICAgICAgICAg DQogICAgICAgICAgICAgICAgICAgICAgICAgICAgIC AgICAgICAgICAgICAgICAgICAgICAgICAgICAgICAgICAgICAgICAgICAgICAgICAgICAgICAgICAgIC AgICAgICAgICAgDQogICAgICAgICAgICAgICAgICAgICAgICAgICAgICAgICAgICAgICAgICAgICAgIC AgICAgICAgICAgICAgICAgICAgICAgICAgICAgICAg ICAgICAgICAgICAgICAgICAgICAgDQogICAgICAgICAgICAgICAgICAgICAgICAgICAgICAgICAgICAg ICAgICAgICAgICAgICAgICAgICAgICAgICAgICAgICAgICAgICAgICAgICAgICAgICAgICAgICAgICAg KATeEVf2G5euMXYkGLTwJK9yWJn0Jb7+DQoNCmVuZH W6cdAtgG2FVG0sz9ZbFMfnNZOfe7BeVZj0XW3ASFFnJCqmYJ4NVMafvh7GQSFoFRZtgZYYg8uxEnBcEZ R8DSMaEhebKK3XCFLuW8gyjsEjFBIhDJCGNJqjEPHBZHmcSRZNJSJsRZKvEoRgViBvTCYcRZCuQSWNEJ W5DZIfAkEePXafGO4Kq4RziKZ7UEv+Iu1ILA7an9Tx GMnmPsXdTH3kxu9CZVlBQfLiV2IsoeS8IWIhSEWpEp1OLVXxOGYjhCEoDfQgQRQURiVqI4ZeaW12ABCE Cj4+OQalvrRfTlsKPdYlHMDwu5JsMVp1FR4JSLRmMKd2aOUlGTgoQ4vxcypqRNX6eE2ozlnzDzczKj1m wYTzQUIzRnclCO3dsdwlIECoQWGmFW9eDc5jWEIfTE N4CoKaTEOMUQ9JGIAgGBSmzMHdTAEwRGTGFZ9KYWflKAY3FRJlisAziPUvNIqiFM2UCTAsocVcLiJoRC BSDQo+Uk3SFW1vr8LpHYvsQBEsPR5jiw6CYKfFNcAaD9M7rICoA9S9EHsmYv3WYQPuALHhHpHzMLWDKB ydLN6JNV3exvD0AY3CqHRxPMWtBMFauXDbVBd8J06g cTBrOGlaGR0EPFF+Gerardo+Vt9RXAZdPFMxUQOcKoXsCXXAVnKeZ8LlC8PPa5FeC0WxUW68rJipfbHeCDrh OW6BTZ9vRSKmUIGGEO4NqJPvcC2fbfDkGqGcHUQYWtZwT84yiBDmOJOjTSHbSCDyNu2VYGHdF2QennIg qRbjxzDaOUOkRINFSE8HBOgggkKrkTFmrCrzOM69pV tkUU7ISx4CEuBuVD3zgr4OhUByNx5CGSCqGQ5WOBXdWEUpAHHcQKB7OSRyTmCeVCzpZWIpQRZaCSL8PJ MfJYQhCU1NKkScCJZtTsRiVtKuJJHyCNTeel9SWUCfLLYuVMp1GeVtVDBhGUOqWOewZLDySKHbZYG2UZ HqJJPpPC9SIiJhRIGiJBC3KcPrPLLkSQPiii3GWQZy SPNaOSO9TPRjCUJwIOSgURipFSVjJAF3ZqP1JENoKVSrXI2UEtOmGSAsKLn9YChbXVDlQINidy9MUNPy WKWqZwZiWWToIEBkNPNbUHnhCAMiCYRvSzBhFFIxTRGyKK9LMgPzTUZlFHn4BfOeMZRwFDJktp9XJEZy KBLsQdlvOFMlQHTlGSWeGKttEMPdNKVgWpd1SMSbSI IxIW0LAmIrYRIsXtJ3UCCjMSGbZQYtuh2DIKOyRSNbTnfeRDCvSHAlWQPyTCpvAIDbTUVdCPV9BMZxEM SnSQ8ZXpZiAPKnOnL7GLDhDPUnGKPbdz0LKEUrYRFiFMyfDLBdPBZeQZApRYxzSCKuYPZ7Vub6LUDhLZ WqEB9JThZhXIUwYlP9IoAcVQKmAOUqbg0RRFQtASCt WyS2OJGlPLVwKIPtDIzvYAPdGVM8EYF8RDWaUSFeDN5OKsIdTYFmOwueCDntWTSvHSWmgu6BAHWaIWEc CiQhQpCaBRFbYYAwGWalJOMxEEE4YMY9NBUjWVTfFR9EOcUyHFRkBch7XoTkADTxEHCgyw2FZLBfSQMl WIa4PgYtNISrRBTkKDnvONJcECF8TLT0QPWxNHVxNM 7NIoSxNADrRaFbUHNsRWMcFGAhde3TMMUnUSOyCTGjJIUcTWOzHWZgJWykELZiGHPdZyYuBMRrOPCsGE 2AGnYpWZSrLnJuCrHpJQUxGPAlav7CKLScMQVdJvF8VUMcVPSlVMMbHUgaFBFeNZYpHrF3WQTcLUKeSE 3XUhDzZMdjFUTCPbp9VHboH0w5IDEbRF1DG9Wvt3Rq CnRiWVHXMAumPY3famXhSHTeCv7YP0uOOzlaBbOfBmCbHNdsHgnyYPohLAX0PTZgM0YoIKYiLPQuMA3g TNTrZ6X9H2LfCQFwNCKoGAJxPZl3QHD0OUQkHLK2AOR1ZfLzJC0OJe5KZcS5ZXP7yCUeOt1EUzC4BYkL OhZoGI8DWZe= ID Date Data Source [id number] 03/05/2020 03:33:48 PM EDT [facility] Name Value Range Interpretation Code Description Data Fide rce(s) Supporting Document(s) Consultation [facility] BEOZIu9nRsSMLnBc62/SBRriPPSur9KoPVweAIy3KZleALRpC4SrSTZ8tA0eIHX0YIsZWyEgYxJjHKB7 lbm [file] [id number] ID Date Data Source [id number] 03/05/2020 01:51:47 PM EDT [facility] Name Value Range Interpretation Code Description Data Fide e(s) Supporting Document(s) Leukocytes [#/volume] in Blood by Automated count 4.1 10*3/uL 4-10 [facility] Erythrocytes [#/volume] in Blood by Automated count 2.61 10*6/uL 4.6- 6.1 L [facility] Hemoglobin [Mass/volume] in Blood 7.7 g/dL 13.5-18 L [facility] Hematocrit [Volume Fraction] of Blood by Automated count 23.1 % 4 1-53 L [facility] Erythrocyte mean corpuscular volume [Entitic volume] by Auto mated count 88.3 fL 80-96 [facility] Erythrocyte mean corpuscular hemoglobin [Entitic mass] by Automated count 29.5 pg 27-33 [facility] Erythrocyte mean corpuscular hemoglobin concentration [Mass/volume] by Automated count 33.4 g/dL 32[facility]0-[facility] [Ratio] by Automated count 20.2 % 11.5-14.5 H [facility] Platelets [#/volume] in Blood by Automated count 174 10*3/uL 150-400 [facility] Differential cell count method - Blood [facility] Neutrophils/100 leukocytes in Blood by Automated count 86 % [facility] Lymphocytes/100 leukocytes in Blood by Automated count 9 % [facility] Monocytes/100 leukocytes in Blood by Automated count 3 % [facility] Eosinophils/100 leukocytes in Blood by Automated count 1 % [facility] Basophils/100 leukocytes in Blood by Automated count 1 % [facility] [facility] Neutrophils [#/volume] in Blood by Automated count 3.56 10*3/uL 1.8-7 .0 [facility] Lymphocytes [#/volume] in Blood by Automated count 0.36 10*3/uL 1.2-4 .0 L [facility] Monocytes [#/volume] in Blood by Automated count 0.14 10*3/uL 0-0.8 [facility] Eosinophils [#/volume] in Blood by Automated count 0.05 10*3/uL 0-0.5 [facility] Basophils [#/volume] in Blood by Automated count 0.03 10*3/uL 0-0.2 [facility] Nucleated erythrocytes/100 leukocytes [Ratio] in Blood by Automated count 0 /100{WBCs} 0-0 [facility] ID Date Data Source [id number] 03/05/2020 02:10:39 PM [facility] Value Range Interpretation Code Description Data Fide rce(s) Supporting Document(s) Prothrombin time (PT) 13.2 s 12.5-14.9 [facility] INR in Platelet poor plasma by Coagulation assay 0.99 [facility] Routine intensity oral anticoagulation I NR is typically 2.0-3.0. Target INR must be clinically individualized. ID Date Data Source [id number] 03/05/2020 12:24:52 PM [facility] Value Range Interpretation Code Description Data Fide rce(s) Supporting Document(s) Glucose [Mass/volume] in Capillary blood by Glucometer 186 mg/dL 70- 140 H [facility] ID Date Data Source [id number] 03/05/2020 08:23:47 AM [facility] Value Range Interpretation Code Description Data Fide rce(s) Supporting Document(s) Glucose [Mass/volume] in Capillary blood by Glucometer 96 mg/dL 70- 140 [facility] ID Date Data Source [id number] 03/05/2020 04:45:30 AM EDT [facility] Name Value Range Interpretation Code Description Data Fide rce(s) Supporting Document(s) Bicarbonate [Moles/volume] in Serum 22 mmol/L 22-29 [facility] Chloride [Moles/volume] in Serum or Plasma 98 mmol/L 98-107 [facility] Creatinine [Mass/volume] in Serum or Plasma 3.63 mg/dL 0.70-1.20 H [facility] Glucose [Mass/volume] in Serum or Plasma 136 mg/dL 70-140 [facility] Potassium [Moles/volume] in Serum or Plasma 4.2 mmol/L 3.4-5.1 [facility] Sodium [Moles/volume] in Serum or Plasma 135 mmol/L 136-145 L [facility] Urea nitrogen [Mass/volume] in Serum or Plasma 75 mg/dL 8-23 H [facility] Anion gap 3 in Serum or Plasma 15 mmol/L 8-15 [facility] Osmolality of Serum or Plasma by calculation 304 mosm/kg 275-300 H [facility] Creatinine/Urea nitrogen [Mass Ratio] in Serum or Plasma 21 [facility] Calcium [Mass/volume] in Serum or Plasma 8.2 mg/dL 8.8-10.2 L [facility] Glomerular filtration rate/1.73 sq M pre dicted among non-blacks [Volume Rate/Area] in Serum or Plasma by Creatinine-based formula (MDRD) 16 mL/min/1.73m2 >60 L [facility] Glomerular filtration rate/1.73 sq M pre dicted among blacks [Volume Rate/Area] in Serum or Plasma by Creatinine-based formula (MDRD) 19 mL/min/1.73m2 >60 L [facility] ID Date Data Source [id number] [facility]/05[facility]2020 [facility]:22[facility] Interpretation Code Description Data Fide rce(s) Supporting Document(s) Leukocytes [#/volume] in Blood by Automated count 3.1 10*3/uL 4-10 L [facility] Erythrocytes [#/volume] in Blood by Automated count 2.66 10*6/uL 4.6- 6.1 L [facility] Hemoglobin [Mass/volume] in Blood 7.8 g/dL 13.5-18 L [facility] Hematocrit [Volume Fraction] of Blood by Automated count 23.5 % 4 1-53 L [facility] Erythrocyte mean corpuscular volume [Entitic volume] by Auto mated count 88.4 fL 80-96 [facility] Erythrocyte mean corpuscular hemoglobin [Entitic mass] by Automated count 29.3 pg 27-33 [facility] Erythrocyte mean corpuscular hemoglobin concentration [Mass/volume] by Automated count 33.2 g/dL 32.0-36.0 [facility] width [Ratio] by Automated count 19.8 % 11.5-14.5 H [facility] Platelets [#/volume] in Blood by Automated count 173 10*3/uL 150-400 [facility] Differential cell count method - Blood [facility] Neutrophils/100 leukocytes in Blood by Automated count 76 % [facility] Lymphocytes/100 leukocytes in Blood by Automated count 19 % [facility] Monocytes/100 leukocytes in Blood by Automated count 3 % [facility] Eosinophils/100 leukocytes in Blood by Automated count 1 % [facility] Basophils/100 leukocytes in Blood by Automated count 1 % [facility] Neutrophils [#/volume] in Blood by Automated count 2.42 10*3/uL 1.8-7 .0 [facility] Lymphocytes [#/volume] in Blood by Automated count 0.59 10*3/uL 1.2-4 .0 L [facility] Monocytes [#/volume] in Blood by Automated count 0.09 10*3/uL 0-0.8 [facility] Eosinophils [#/volume] in Blood by Automated count 0.03 10*3/uL 0-0.5 [facility] Basophils [#/volume] in Blood by Automated count 0.03 10*3/uL 0-0.2 [facility] Nucleated erythrocytes/100 leukocytes [Ratio] in Blood by Automated count 0 /100{WBCs} 0-0 [facility] ID Date Data Source [id number] 03/04/2020 09:24:44 PM T [facility] Name Value Range Interpretation Code Description Data Fide rce(s) Supporting Document(s) Glucose [Mass/volume] in Capillary blood by Glucometer 110 mg/dL 70- 140 [facility] ID Date Data Source [id number] 03/04/2020 06:31:47 PM EDT [facility] NM BONE SCAN IMAGING WHOLE BODY [id number] AL RESULTInterpreted by:Charis Lopez, Gabino Lyles MDINDICATIONPatient [...] rce(s) Supporting Document(s) ID Date Data Source [id number] 03/04/2020 05:46:20 PM EDT [facility] Name Value Range Interpretation Code Description Data Fide rce(s) Supporting Document(s) Glucose [Mass/volume] in Capillary blood by Glucometer 179 mg/dL 70- 140 H [facility] ID Date Data Source [id number] 03/04/2020 04:57:30 PM EDT [facility] US RENAL TRANSPLANT [id number] RESULTInt erpreted by:Leilani Nieto MDINDICATION: Follow-up for [...] rce(s) Supporting Document(s) ID Date Data Source [id number] [facility] 12:26[facility] Value [facility] Interpretation Code Description Data Fide rce(s) Supporting Document(s) Glucose [Mass/volume] in Capillary blood by Glucometer 138 mg/dL 70- 140 [facility] ID Date Data Source [id number] 03/04/2020 08:42:07 AM [facility] Name Value Range Interpretation Code Description Data Fide rce(s) Supporting Document(s) Glucose [Mass/volume] in Capillary blood by Glucometer 96 mg/dL 70- 140 [facility] ID Date Data Source [id number] 03/04/2020 02:27:49 AM [facility] Name Value Range Interpretation Code Description Data Fide rce(s) Supporting Document(s) Bicarbonate [Moles/volume] in Serum 21 mmol/L 22-29 L [facility] Chloride [Moles/volume] in Serum or Plasma 99 mmol/L 98-107 [facility] Creatinine [Mass/volume] in Serum or Plasma 4.01 mg/dL 0.70-1.20 H [facility] Glucose [Mass/volume] in Serum or Plasma 149 mg/dL 70-140 H [facility] Potassium [Moles/volume] in Serum or Plasma 4.4 mmol/L 3.4-5.1 [facility] Sodium [Moles/volume] in Serum or Plasma 135 mmol/L 136-145 L [facility] Urea nitrogen [Mass/volume] in Serum or Plasma 77 mg/dL 8-23 H [facility] Anion gap 3 in Serum or Plasma 16 mmol/L 8-15 H [facility] Osmolality of Serum or Plasma by calculation 307 mosm/kg 275-300 H [facility] Creatinine/Urea nitrogen [Mass Ratio] in Serum or Plasma 19 [facility] Calcium [Mass/volume] in Serum or Plasma 7.9 mg/dL 8.8-10.2 L [facility] Glomerular filtration rate/1.73 sq M pre dicted among non-blacks [Volume Rate/Area] in Serum or Plasma by Creatinine-based formula (MDRD) 14 mL/min/1.73m2 >60 L [facility] Glomerular filtration rate/1.73 sq M pre dicted among blacks [Volume Rate/Area] in Serum or Plasma by Creatinine-based formula (MDRD) 17 mL/min/1.73m2 >60 L [facility] ID Date Data Source [id number] 03/03/2020 11:18:53 PM EDT [facility] Name Value Range Interpretation Code Description Data Fide rce(s) Supporting Document(s) Glucose [Mass/volume] in Capillary blood by Glucometer 157 mg/dL 70- 140 H [facility] ID Date Data Source [id number] 03/03/2020 09:15:20 PM EDT [facility] Name Value Range Interpretation Code Description Data Fide rce(s) Supporting Document(s) Consultation [facility] ZYIYIc3jOeVHDxMf56/CAAejPFYpx2PmTNaeRIs5MDtiQZWnY5GjKBN9iO4mJMK0DTrNFoAdHrMbSSC8 lbm [file] I78Bt2ySpeVTdZpibrhqtGjE5Bo7zNiK4baQguV [file] jGIsrSdAM/Lmb5002wOy+real estate legal assistant/N6nPiu0T/NO5mLvgz [file] ogICAgICAgICAgICAgICAgICAgICAgICAgICAgICAgICAgICAgICAgICAgICAgICAgICAgICAgICAgIC AgICAgICAgICAgICAgICAgICAgICAgICAgICAgICAg ICAgICAgICAgDQogICAgICAgICAgICAgICAgICAgICAgICAgICAgICAgICAgICAgICAgICAgICAgICAg ICAgICAgICAgICAgICAgICAgICAgICAgICAgICAgICAgICAgICAgICAgICAgICAgICAgDQogICAgICAg ICAgICAgICAgICAgICAgICAgICAgICAgICAgICAgIC AgICAgICAgICAgICAgICAgICAgICAgICAgICAgICAgICAgICAgICAgICAgICAgICAgICAgICAgICAgIC AgDQogICAgICAgICAgICAgICAgICAgICAgICAgICAgICAgICAgICAgICAgICAgICAgICAgICAgICAgIC AgICAgICAgICAgICAgICAgICAgICAgICAgICAgICAg ICAgICAgICAgICAgDQogICAgICAgICAgICAgICAgICAgICAgICAgICAgICAgICAgICAgICAgICAgICAg ICAgICAgICAgICAgICAgICAgICAgICAgICAgICAgICAgICAgICAgICAgICAgICAgICAgICAgDQogICAg ICAgICAgICAgICAgICAgICAgICAgICAgICAgICAgIC AgICAgICAgICAgICAgICAgICAgICAgICAgICAgICAgICAgICAgICAgICAgICAgICAgICAgICAgICAgIC AgICAgDQogICAgICAgICAgICAgICAgICAgICAgICAgICAgICAgICAgICAgICAgICAgICAgICAgICAgIC AgICAgICAgICAgICAgICAgICAgICAgICAgICAgICAg ICAgICAgICAgICAgICAgDQogICAgICAgICAgICAgICAgICAgICAgICAgICAgICAgICAgICAgICAgICAg ICAgICAgICAgICAgICAgICAgICAgICAgICAgICAgICAgICAgICAgICAgICAgICAgICAgICAgICAgDQog ICAgICAgICAgICAgICAgICAgICAgICAgICAgICAgIC AgICAgICAgICAgICAgICAgICAgICAgICAgICAgICAgICAgICAgICAgICAgICAgICAgICAgICAgICAgIC AgICAgICAgDQogICAgICAgICAgICAgICAgICAgICAgICAgICAgICAgICAgICAgICAgICAgICAgICAgIC AgICAgICAgICAgICAgICAgICAgICAgICAgICAgICAg VEAsYSBhVCSsHHNkOKXmLPJvLWs5N1yaEEOyIDIoOB3fRSc6Zp1+PLhNSaUyOCG5rxHmeA0HFS2ot7Gp FGjaHEFlp6JjEYg5BU2WPAXwPMrzLG8VIFvgag7EHRXlIXObrTFQe9wgEqXvSMA2WQKeFxbbNX6XMLYk F5rpauQmPERiHLLFZQaoXFPTZQraKNIOGMEoADTrUw IeEcWoQLIpAB9CXCJgF623foEgUX7PNo3OZaWiUW6mwi7VDiSmSLHgNacTXed9OMphXY4RxCXaiLYhXA OyEXZTSkNwW6jfz3XoXdWrKUGIADvkRH0Eo9UweQFlAVf+Xb9XOA7am4ZxQBieFNLzOS1jrb1JOJdFSs MfK4VkgCnxMSBltmV8mGMsUDB9SO3bfjZrTWZALDOz jN4jcyypAHAfEOBvHB6bTX0rIIZxZQG3SmFyWVRUIV8EGLKbFQQlwKFoSDDbWLVTSZ2ZCAnqYZN5LEIc ucBzjDEaJVupDT4DHKVmdpFnRwHaLVPTRUj+Pc7ZGO2ct3SnQKuoIVDoRB2rol5WOIbMSnNqP6Z1mJHi K6W2NAxrTy3HRVLwJIFjGtUxPNGICVkyIL5VAN8hmz H7LB4GyDWkAYNhNWZfePHfRMh5H56srOToAHssTY3CMUY+Gerardo+Hu8FFQPlAIGrADOtPxFmDHFDYoZhA6 UfT5BYi1DlZ8PiQL43mAdeesZaHDggJR4LJC6nDSDrDSOBUE4QmZZngV8cffYxQkHkIVRRCzYdE34yeA RlNQHwXOPsIGJxFe9ZDKLbZ0KybnObiYdlydGuDWCt ZEOTQW3HFCgwpfDwpHFpkXoeNF78dWrhCC2DQf1JXpUrAR6eyl3RtRBaSs8FSDDfMx3WGKRoASLkZGOo SZI3FHAiTcPgIXytYOZvGUYsAMP8LLKuGOXeWO0HThAeVPKxDxF4FJYgREYdSZWich1VMMLvYMRtZBQu QYOqNOAyPXQtZAjgWTUvGOBbXBM3JVHnLVRaYU7JLo NdPRPcQZT0KgvaEXJuZVQgxg6VVFPjCOSoGfwvToNpBACsQVMzEJgzYNJmTCJ2WSM6NBBdEJWgUU9TGw YcLNPpOEVuGzCoEFGeJITqsa8IANXvGUQfRIf3CsRyPJScCGUdGDliNMTwBWL7UQT0PEOkEMWoET9ZOh XdUHBmLTA5JPfdXMLnFKFvdk5NDXExHMNkNrklEJOn HCEqEPUoQPfzQRElBJZ6YHv9VWFgLWIqGO5FInPfUKIlJQKnXEUlCAVzAEJbmv5OIKUuBBIqQdM6VULm OKXpRXVhQVwrSXNzADU5WvCpPQRsDRAlDI6OThQyRXAeVLA1ByWpEJIuSNHesk7DNAHvEDFmCqS6GTPu PMVvYBMmUOhtMNTzOEP3Uvu7TLHcOTXbQX2SZoUtDS NaGWj5JQJwHORkUYXomm7OUIGlKXFpXCw0ZEXjFMTiFQOnZYjvFZWfKCE6RUKlBOCtJMNpNI3JKpCfOC ZpNGcwVkOeXOQqQWYrfv8QQWQdUDRqHLAsGARaJHYrHDRcFXaqRXJvGPIuRKB9PMPwIFZnTE5IRrXgDS DxUwRbUhZpTLWxYCObjj9JMGWaXXAcOZX8XKIvRKOz GZTiWPrvLQZdVVPyPIMiRJBnLGZtRL2YAiGeYOYhDfU1XxRwJNAyWSRuqi5QWVGuPSUgCcP9EzJcDMRj EQLqYGkpFHDuZBXlFYTgUTZdUFOcIP4GPyKzGILmNlLvBrQqPZOcOEMezu4EHACnOLCiQWkwJDFsDWMp IQNvCSlhBBThUGN6Ozy6XXAwVMGhFK8LVaZeTFUbJz K9DDLfZQLcEKHild9KuNHzuJfyed9QRIwTLl3NiZogTZU9LAqgMk8cbPLaYDInREIZEv4FuaVoKBLoMW SITZtwKYGkODO0ATGqVMzdPSSuM4FuIIQ8BxOmJNAyKhXoVcw0F6G0BrM0CqKdFTX6ZXJ1ZTFiDASrVj K6P3U9IHTtG6MeVkgwXpl+WE8bXRc+Ml3Mq8DjpkD6byZdDPrzFBO8Jm0IOXFQM9GPMo== ID Date Data Source [id number] 03/03/2020 05:32:08 PM EDT [facility] Name Value Range Interpretation Code Description Data Fide rce(s) Supporting Document(s) Consultation [facility] BKCRRh3fXqSLNpFf68/QJJgyJAMji2FxGJckBYm4WGawOSMyC1SsFIA2tU2wYNZ1EZzYDhDsEfFbGIQ2 lbm [file] AgICAgICAgICAgICAgICAgICAgICAgICAgICAgICAg YOWjKAIhZKGxUHFkLPUzVCRiVRNaPELaXXAoTXWoRLBfEO9WDHSsJOGoAUFcIRRmZRHbESFiKNOqWTTd ICAgICAgICAgICAgICAgICAgICAgICAgICAgICAgICAgICAgICAgICAgICAgICAgICAgICAgICAgICAg FSIjEXAhMRKkOIKeGLSmBX0FFTKiTIMqVOMoNGMyJH AgICAgICAgICAgICAgICAgICAgICAgICAgICAgICAgICAgICAgICAgICAgICAgICAgICAgICAgICAgIC XjAGXxEJLeMYSkVYZbSCXlYAAoBWYyALYhUL3MTWIcTAHgNXPuSNMnBRVsBODcZHHlSASwUKCxEGBrFV AgICAgICAgICAgICAgICAgICAgICAgICAgICAgICAg OJIpQPMlKXQsXWExXBWwVTAoRIViXALhMIZuIXNsNNChSBBzGV9WZIWhNWJgJICcFSQtLHOnQVQaNBAw ICAgICAgICAgICAgICAgICAgICAgICAgICAgICAgICAgICAgICAgICAgICAgICAgICAgICAgICAgICAg HDAlLMChLVBaYXOjALBxZLZbAH5SISIvHDVdWXZxNI AgICAgICAgICAgICAgICAgICAgICAgICAgICAgICAgICAgICAgICAgICAgICAgICAgICAgICAgICAgIC UdFRQbUEYrJRIlEMJjQMAbLHFpDGLsIRJhTWJhDT4JWUHmAWZiWUQbZVSjAIUvFAEiBFShMIWgWFTcUZ AgICAgICAgICAgICAgICAgICAgICAgICAgICAgICAg SEOaAGFsMODkZWVfASMaDJKrMWVfPRPyWOCpGASeEUFqBCKjQPBtPA3BDBHfYBOhGAUsZXFlXHJnEHYd ICAgICAgICAgICAgICAgICAgICAgICAgICAgICAgICAgICAgICAgICAgICAgICAgICAgICAgICAgICAg SFNvHIBoGYLkQQPiIJIeIHSdJXQcCK3JIOPqSPOpRH AgICAgICAgICAgICAgICAgICAgICAgICAgICAgICAgICAgICAgICAgICAgICAgICAgICAgICAgICAgIC AtLXJrSAFwPPRcPDPuWDYbNMNaINMdLPOhLFVtZNKoHE2JNKGiEJFyFLOpVFQaHDWuLTZwWQHzPWGwRX AgICAgICAgICAgICAgICAgICAgICAgICAgICAgICAg UMLzNJJmMLGtUUUxGEZcODZnMSUmTURjCAPwBCVzMHSdKLTnWCJeXLSoDB8NIL85iZJuj2D7NKXmKD3q dyc/Sw1YHMjhgrLjtCZgDN7JLgPdXD2fok4PVmFlQF4uii4AZItTOiImZ2X3bMCyZXQaUNIFTdZuY06x NPvaLx59POmkGCHjKzLvLEg8Ud0BYfWcI5qhONWlSl K6NCZuElH9NQHuSjN7PPUfTlJoTHYsVNPmZPJvENBGXD6XZhWmA1MunP03DZVPKh5+DQplbmRvYmoNCj TuTCQco2FiOXk9SO8KOEMfTobvc0NiEkIqTRAJOHrtTL5GOVA3GIX6VBCiQq5PJAJcU522jaRmXS5UGf 5YSjLsEA2ptn4CClYqEVJeEqnZMxv2RUwzAJ8SkFVk CMkTn97zcDb1nxQzgEUOpOSfj1codPLGAZNcZM7XVcHsVUTeTB0xWE3cHDDtJDDvNyU3BYTKBE4ZYCFv CKBisBVgZEZqKGFTST7VDIbiBZV0EPAxqvHhrKZoFOppAL5CQYXffzFnAcQwAPSIGWq+Cm6GOY3pq6Bn FKhbGEUhOS9kth4EQNtYPgPkE7Z7rTCiB0U8RWxzXb 1YSVYvEXXcRwWiCRRANXfnKU2BJR9cvgM6OB9IgEEsABOjYLVghQKfNJs9O17grTZwWZvsQF7RYEF+Pi A+Od0LGOTfXDQpFFLaIxFdEAHJSnTeY3YgR8WSi1NyU8YsED31lJcqhlPmAJaeTU8JLT0hLCYaTFHJWA 9HeOSeoR9bzwPuVrEcJGRBPfJfY58zrRGqAJXpEXAp QFVvDf2XPEZuF1IjjdNvhByuwvGhFIPpVXJODZ5YEYizaeUtmQUcsBygJH00iPuqPP4VMm8BSnSxJY3e pb6QkDJxWs7ADXXiDd9CZKBcPBZrYUEePRZ1LIVoCwCoMZroPDVkSKAoBPN8RFYfLUHiOW1ZItKhNGIh TeQ5DNHnFTUdYRPnuz1ERGDoIPNlVxB7HiXxICSmBU MoACijWTTdADSpBDK2ZTYuVVZaFR4PVpNlCCEbZYNtKityGUTpNEUtoe6KDAMjPCAjCYT6VGJfDUDyDU WvSWeqUHMfKML4ZAC5OSYwHGQzKC1WXnAvFAKxAYceIBkcLWLhNHKhxg3SHIShXJVjEsB0WvHlJZAkDZ XhTCyfMQXdELCpNzf8TRGpSRLmAJ9IBfRwWEDrEWK8 IzgsHNJeFIBzuk8URVMiJHIlFpW1TfZyGAXpIWYdNZmeXHZmVKQ4SwHcPJTcJJKgIK9HRuVnBHOqWSr3 FIynYAFlGNNoxn4BCFTcQZEnCKq2CQCaHERrYAToZBfuAKYcIEM6TOD4SBDrZMSkAQ4LDeEsBXPxLIlr WDigWVHuHSQvxb9IFSRaVKHdRXEyBzOqZUTiEOOhVK ogMZIfQUDpIBM2QYIpVFXsDG3DKfDrLPYaArA5NEeeVICqYSOhwi6WSAOiLUZfTFO5QbBaYDUhAOSgGY rwXWJiFCVtVbZ1EGBhSHDuGU5CQrPkBRVkHuY5NCSpAXKzEOZxid9VLAWfBEQbZjgqWcYtMGBqALJpPD cvJAZfKVUpLWXkPWNdOKVeQN5NAeArOZDkTpKcCVRr LDHsQFRwfc9VJXAuHLLbNIS7ZRXbEOIrIJTbBTptCJMlGYA2SGz8PFXaGUDqRI9RZyYhMLMbLhQdCNwu YOLcMDRgto5ZDHSdQCQxLYHcOhEdFJQxKZNzWXqqXZGiMUR6ATweZQIsSULkGS7WLcWjQHUgRjNdXWFu ZIReAGTfni4SCKHqXOFjEkO1WLQsZAVwZOUrDNbhXX JsPZO7OXHpVYJeDJCjCN4BEgJiTOTkOyk3JBOtQAWjASFgwp9AiBJunCbvgi9EROaKSp4JiUvoJHG0KU caOc1wqUDpDXOsETVUVa3XyzPgFTRrENRWPBjoYWDlJNT1Z4H2UDsmBNviZFRoOzH2V5TdWaWdOgJ7Za N0QWZmTyS8OLQ2SLSpHMQ7I2I1EFXiCSFyKoMyFaPr LfR7Yjk3FkQ+RU1lXBq+Ye1Zn6SdrnK0nvKaFLwiVeqoJX4FQFSGN3TYSw== ID Date Data Source [id number] 03/03/2020 05:41:[address] [facility] Value Range Interpretation Code Description Data Fide rce(s) Supporting Document(s) Glucose [Mass/volume] in Capillary blood by Glucometer 160 mg/dL 70- 140 H [facility] ID Date Data Source [id number] [facility] Code Description Data Fide rce(s) Supporting Document(s) Glucose [Mass/volume] in Capillary blood by Glucometer 143 mg/dL 70- 140 H [facility] ID Date Data Source [id number] 03/03/2020 10:15:31 AM EDT [facility] Name Value Range Interpretation Code Description Data Fide rce(s) Supporting Document(s) [facility] OZRHUk5yZoYEBjEp51/HOBskRTLle5OfKUzyLCa1CTuqWIVoN3AzXVL5lP7jVNX2UExWRbOvWsPsRFP5 lbm WuUadFJbRgSKWgGhuXRrOzXGirZgfukPJyVN6EaPG4KARxL29mGVEsNAGaH3GuLDU0IYl+Fb9XXOQlqO QxAX6KIrsZ7Q7iq4nWDF0o8X5zwYIrjhngYqmPd90an0cYyWgR4MFHUF+7FpxysSrY6AKbK10UZVt9W9 sEOXVwr26CpLQCv2z585oRjVS1m18sS4Bj52gRsy// jBJfnd+ov/9NLYYZ/4VX0e6wRLsmg0IZiMZdcdf23CJVq9ditobe5lDrHw87kiJdVYpQS0cW/rPD5+r0 s2vGVr9LR3klF+xd5fieWRppw1j7c6t3s0lfiMkrUjnzpnKlbHSefUEis23t2dD+yT9I5YX+uVHD9aYt 15374IHPqVlN2bSEWv16dYxMR3Du5DdXo1x5xer575 rK2gsD/UDn4/JuJc6R7yu0U9xewqd16AK21njY6adtNTi0yjsheiWm73A/49tYEL7G+MmPpmHS3rdBE8 2Ob8q56aK07UiLzAIAjyZm01tV2GC/D/Nb49k2Vw2dx1q6dz2THcrl9lViaKJDOk6J9EMeBqLxuqOIzh /jGRuEM+J8p6EdN6aM7cZdJl0F5Oipa4R9R6xYm1W5 kOMk+7McLijoZjw94fzAWG2iFXWcdhtSucQ5E5lGmUiujeJ4YB/mWPO02lEMYYvvZFBmljvMhgGah87t XsZG2mThszTINXWnKZtFyf/JyIpoM2v3td5y092l6Taq6s2iB2mLo2/4Z13I9rIadTjR3shfmFi3pn3Y aVejoUNdVi0+b6e9T3JWadol+fcfn0ZJMovUv0xDKa hvDGu2yWkJ7+BRmqBhfAXNzcHMQLEIloQzg0hp2XTrr1N+u08RgRXecHiHpoQZcz5tWX/GsyiQ7mZeny BkIirE02bCChQcNMzK3yFEFilx4Un0zF7mA3Z5E0rJGpnQOoHNm3V0Q3dtZUqzQZ3e0b/hwBOqXWG7Rs DYHd/s+E8nLYC9IxJ4wlliaF0YaJ5Q2bQe63zfB+L5 +YS8yJVaClFRqiXspNtccsqUCT+n/mAtgXtbqegZc2T0uguwoteznd978M9Y03Yt+wbH4koc8ssBemuH f1x06nszJuvRIr+PsqZ5yPX2yqdAe0Qj5ki31C8tYKa01B0PFoOsHFHXImVcaUFrAjU3QxjbwY30mOjB 6WQZDSMYi/WexLmxoYgIPSNFRtVA4kOcVOYDir4E+3 ohMmsxYYHvF/A58g27lbWgOV0KH7xKVeTXZbc9CjEA85xQSAaixyLvPxUIwSGSTrvasoAYCNYM2OVfRp MdAOmgrGo7G7nLasaqC8XFk/QRCRwiFLiIMv9xm1u2v+X7rI3ZT+MSjD1jcgHiSkOKyFbFqA5CPe6BM3 aJeWALmK/vLUssLiap7gKA8XM2x0mI547j4XnvJsvI NMKcYcwohd0wXV0/BDKQ43N+vewr06JeT0CZmlt3rACv4p2wDujgIZ3HuQnsNrGw1sk1/VwO+1r5p2CN MC6AH/JWW7kCY4KRJE9ev/sdD5bV+1tKs52mddOhH5dslLQ5Tfx2mD+ITUX3/dZibKuM1SEGtzXkOJUt NlDsf8jSbwNdPbbS1J9nqDsBYQyYLGecxFmidiwedr umPnzl+jbPfahvUXeNUzOD0RqY+V5anBE1yndvEN9dlZGK4EK6meX1xgcuErEh+PUnbwRmxj2hatCwoa aJ2KQabsAzRL16WkmmQN7MSPcDvphRjNX8vxLDqeW7QrdIiac4rVJj7X5V2eYW26fEMP2B3V9lZ8Ab20 MokGjOBIZNvaRNeDaIlZ+ULmxduqMLILGYZnDsJTya [file] +tUIjKI6P/s2/zgqKLz+c745RaH6N75+at02nz [file] ICAgICAgICAgICAgICAgICAgICAgICAgICAgICAgIC AgICAgICAgICAgICAgICAgICAgICAgICAgICAgICAgICAgICAgICAgICAgICAgICAgICAgDQogICAgIC AgICAgICAgICAgICAgICAgICAgICAgICAgICAgICAgICAgICAgICAgICAgICAgICAgICAgICAgICAgIC AgICAgICAgICAgICAgICAgICAgICAgICAgICAgICAg ICAgDQogICAgICAgICAgICAgICAgICAgICAgICAgICAgICAgICAgICAgICAgICAgICAgICAgICAgICAg ICAgICAgICAgICAgICAgICAgICAgICAgICAgICAgICAgICAgICAgICAgICAgDQogICAgICAgICAgICAg ICAgICAgICAgICAgICAgICAgICAgICAgICAgICAgIC AgICAgICAgICAgICAgICAgICAgICAgICAgICAgICAgICAgICAgICAgICAgICAgICAgICAgICAgDQogIC AgICAgICAgICAgICAgICAgICAgICAgICAgICAgICAgICAgICAgICAgICAgICAgICAgICAgICAgICAgIC AgICAgICAgICAgICAgICAgICAgICAgICAgICAgICAg ICAgICAgDQogICAgICAgICAgICAgICAgICAgICAgICAgICAgICAgICAgICAgICAgICAgICAgICAgICAg ICAgICAgICAgICAgICAgICAgICAgICAgICAgICAgICAgICAgICAgICAgICAgICAgDQogICAgICAgICAg ICAgICAgICAgICAgICAgICAgICAgICAgICAgICAgIC AgICAgICAgICAgICAgICAgICAgICAgICAgICAgICAgICAgICAgICAgICAgICAgICAgICAgICAgICAgDQ ogICAgICAgICAgICAgICAgICAgICAgICAgICAgICAgICAgICAgICAgICAgICAgICAgICAgICAgICAgIC AgICAgICAgICAgICAgICAgICAgICAgICAgICAgICAg ICAgICAgICAgDQogICAgICAgICAgICAgICAgICAgICAgICAgICAgICAgICAgICAgICAgICAgICAgICAg ICAgICAgICAgICAgICAgICAgICAgICAgICAgICAgICAgICAgICAgICAgICAgICAgICAgDQogICAgICAg ICAgICAgICAgICAgICAgICAgICAgICAgICAgICAgIC AgICAgICAgICAgICAgICAgICAgICAgICAgICAgICAgICAgICAgICAgICAgICAgICAgICAgICAgICAgIC WvUHn9B6eaCXFfQAZgDK0fDLl0Iw4+IJlMFmXgYPT1zbOmeH0YVD5ez9KxMRhfZWTjq3UxFKd0HA7AKQ HjROrtLC7OKRchzk0GDMUpFCEujSSUw7ecXyRbFFC4 NBIvPkvcFA9TVMLiM5ubroRpRLHkPNMJHMolICNGFJxdMZDSRXUfDRWgBqEhRoDwWAWhMARcXIHHIWG4 CEZcKtOqVNfnVS8Ti7GmuSL1FZc+Dp3YQI0ey3DqYEjaRbNpQE0ztb9YBVlXKiSdC8EgdvR1ZME1FHMv Bk2NBHUdIBGxgOOfXNWrABGVNtLaQ2PjeF74PLTZCa 4+GAkptbTiIdrSKzP6EDPyl1YdUWf7XF3VTDQtGUz4aYEnQ45qa6JerNOiLpsnAAIkxBetQERXWMAcfO exHJ6bLCCsHW7kBj1jBARnHFAwRmK2PVDLEU1YCBTfOUOefMLlRGKqENBRTH5MVLytPIS4TMSajdEtvB VpVMapAH2ZHLDwgtWwJnxgIGDJMUn+Yp2ICG7ng9Fp XPdwVOXuOV6tvw5ENLhKHbVmG9F9aXLiQ2Y2PTvsOa7VBQIhEOYyUdMlZZVUOPvyHL7OTK9mgaS7ON1S uKQcSZFvWBMaiYGeSGd0S54tpNAsDTivMN6AVRJ+Gerardo+Ur0EIBYvJZAuFHVrQuIoLTLTAaQqN3XrR8HY u7MrY2JlBT66dRmhgeVzLGngQP0YCD7eAHXbUKNCHM 0AyCTudJ9sgiQtDrNbRQKVVfXoU78mhYFvJTUrZMI0IVLnMx0SCAFiW0FqonEmnGwqfmMyRFCiXECMAS 2GUDauatWnfOBpaEgrCQ09yVpmUY2PTl3IVvQfJS1nbl3UdCQqWw1MLPI2EM2EUCWwRDRnPQHjWME5PE YfZiViDCxjKQDdLQUbEYL1EHXkRRZfEI6OUtPuUNTc VqPyWGSdYBUyJOGsdg3AKOIeWPSoSLXjEhXpHVTdWRAwELahGSCwPOCmVLD6ZXWeVKZhVX8GFqJoYNKg SVPuHgvdPDLqWHVplh0MMGSuRUUyQAMtJSLvGDExUOGxEEbfGSPrBJW1IPB8BVPzYGJrRT3BEjMnJURi VCd8NaPyAQLqYVQqcp2XHUGpKUOvIBXdXCKpEEOcWI OpOXmeXZMnFEVtSvV2HBCbTYExGV5TOrVnAUNyYYW3WNfiNAVoLZXrdd2DTRFzYVJtPog3SFSkFYRzHK ZeFMqkCTCtUYW0XmEjTEOvVCJsPQ1FXqMcYWLdSHE1ITwuTMYpPPMgug4EOLWnHUPaWoM6IBGwPBSoNO CbSSrqHIWpEJD6Oac5ZCJkVQYmSD9CPlZdNLRdPRw5 UYqzRUWdZBWgmp7QVYLeQBUnBOwnBhNeKBRlWNXgXUnrSNGwZWC2KsdiUDTqVYWzIR4KPrDiTGDfBDq1 IRPsQSHxCMAtmh2HDGHzHHNmJRD2FpRsJESfMFBfFDmrGRFnWFHnCUTrVYCcWRPpEL4VFqRgLGIxXpNk IqOdOIVrUUTzuj0JOPZsVFDePPBnHuZwCYBeVYAwPF czWZNkEVLpKsfuDSVoRIAlYR8AJdMhTDHvLwU9UoidPISzUDEmvf5YHDFgJCHhKef2IlZkWXIgBLCcSW ruADMfNUF1BZY8DGVhZUQiCL7ZUxPiFKKeRbU1URZoCAIkYXGdqs6UJNTyPELpKVW0WHHbVEPcHLOqEX deKTTvYLM5SDOhQNKyWNFgEW1XDdQbUIRtYsWnJZba XAHwCSEwxv6GZQZyTYClTCp8OqJmZQRdKGUuWTxkUYCtMCE5TSltKJJfEYFhPO4XJaBoDEDdEeCyMCli IVXbIIVmfb6GIMHvVPVaNfm5MlCqVGSfDVNxTIieBEOrEIC4LfrkOSCvTOIaTD6XMaDbPERrKkewUCSb GTXhOGMori0GHPRaRSQoVWL7CfHvIDHdOJDqLNy8lj ZylFKjAFf9PZ1YR1JxalGbASRCTf6Jy740WSI2BBUiZe7FF5adIc8xJVMmDQVKYh1KQFi5HAI8TKB3VR WdJARoEFU3RUB8I2P3MFIaWrVuBKUvSnS+MTfvIMjbZATvFGJ2VgGuPVH3HSmiWYjtIED3SFZtXqI7XY 0eKAGURg4+BOvcrVFyePliZHGQHoK7YmI5HNsgXLOMMg1A ID Date Data Source [id number] 03/03/2020 08:23:46 AM [facility] Name Value Range Interpretation Code Description Data Fide rce(s) Supporting Document(s) Glucose [Mass/volume] in Capillary blood by Glucometer 130 mg/dL 70- 140 [facility] ID Date Data Source [id number] 03/03/2020 12:34:55 AM [facility] Name Value Range Interpretation Code Description Data Fide rce(s) Supporting Document(s) Leukocytes [#/volume] in Blood by Automated count 4.2 10*3/uL 4-10 [facility] Erythrocytes [#/volume] in Blood by Automated count 2.75 10*6/uL 4.6- 6.1 L [facility] Hemoglobin [Mass/volume] in Blood 8.1 g/dL 13.5-18 L [facility] Hematocrit [Volume Fraction] of Blood by Automated count 24.3 % 4 1-53 L [facility] Erythrocyte mean corpuscular volume [Entitic volume] by Auto mated count 88.4 fL 80-96 [facility] Erythrocyte mean corpuscular hemoglobin [Entitic mass] by Automated count 29.4 pg 27-33 [facility] Erythrocyte mean corpuscular hemoglobin concentration [Mass/volume] by Automated count 33.3 g/dL 32.0-36.0 [facility] width [Ratio] by Automated count 19.2 % 11.5-14.5 H [facility] Platelets [#/volume] in Blood by Automated count 149 10*3/uL 150-400 L [facility] Differential cell count method - Blood [facility] Neutrophils/100 leukocytes in Blood by Automated count 90 % [facility] Lymphocytes/100 leukocytes in Blood by Automated count 8 % [facility] Monocytes/100 leukocytes in Blood by Automated count 2 % [facility] Eosinophils/100 leukocytes in Blood by Automated count 0 % [facility] Basophils/100 leukocytes in Blood by Automated count 0 % [facility] Neutrophils [#/volume] in Blood by Automated count 3.73 10*3/uL 1.8-7 .0 [facility] Lymphocytes [#/volume] in Blood by Automated count 0.32 10*3/uL 1.2-4 .0 L [facility] Monocytes [#/volume] in Blood by Automated count 0.10 10*3/uL 0-0.8 [facility] Eosinophils [#/volume] in Blood by Automated count 0.01 10*3/uL 0-0.5 [facility] Basophils [#/volume] in Blood by Automated count 0.01 10*3/uL 0-0.2 [facility] Nucleated erythrocytes/100 leukocytes [Ratio] in Blood by Automated count 0 /100{WBCs} 0-0 [facility] ID Date Data Source [id number] 03/03/2020 12:55:31 AM [facility] Name Value Range Interpretation Code Description Data Fide rce(s) Supporting Document(s) Creatine kinase [Enzymatic activity/volume] in Serum or Plasma 86 U /L 20-200 [facility] ID Date Data Source [id number] 03/03/2020 12:55:31 AM [facility] Name Value Range Interpretation Code Description Data Fide rce(s) Supporting Document(s) Bicarbonate [Moles/volume] in Serum 20 mmol/L 22-29 L [facility] Chloride [Moles/volume] in Serum or Plasma 100 mmol/L 98-107 [facility] Creatinine [Mass/volume] in Serum or Plasma 4.05 mg/dL 0.70-1.20 H [facility] Glucose [Mass/volume] in Serum or Plasma 186 mg/dL 70-140 H [facility] Potassium [Moles/volume] in Serum or Plasma 4.4 mmol/L 3.4-5.1 [facility] Sodium [Moles/volume] in Serum or Plasma 137 mmol/L 136-145 [facility] Urea nitrogen [Mass/volume] in Serum or Plasma 75 mg/dL 8-23 H [facility] Anion gap 3 in Serum or Plasma 18 mmol/L 8-15 H [facility] Osmolality of Serum or Plasma by calculation 312 mosm/kg 275-300 H [facility] Creatinine/Urea nitrogen [Mass Ratio] in Serum or Plasma 19 [facility] Calcium [Mass/volume] in Serum or Plasma 7.5 mg/dL 8.8-10.2 L [facility] Glomerular filtration rate/1.73 sq M pre dicted among non-blacks [Volume Rate/Area] in Serum or Plasma by Creatinine-based formula (MDRD) 14 mL/min/1.73m2 >60 L [facility] Glomerular filtration rate/1.73 sq M pre dicted among blacks [Volume Rate/Area] in Serum or Plasma by Creatinine-based formula (MDRD) 16 mL/min/1.73m2 >60 L [facility] ID Date Data Source [id number] 03/02/2020 10:46:35 PM EDT [facility] Name Value Range Interpretation Code Description Data Fide rce(s) Supporting Document(s) History and Physical [facility] TGPFZp6vHiGBImXy19/UAPgnQNUim2OcJJjkYUt4UFkuQMUfF9GnSHQ1tE3yNWZ5KRrOEyAsIpMkXQI7 lbm [file] E+DQogICAgICAgICAgICAgICAgICAgICAgICAgICAgICAgICAgICAgICAgICAgICAgICAgICAgICAgIC AgICAgICAgICAgICAgICAgICAgICAgICAgICAgICAg ICAgICAgICAgICAgDQogICAgICAgICAgICAgICAgICAgICAgICAgICAgICAgICAgICAgICAgICAgICAg ICAgICAgICAgICAgICAgICAgICAgICAgICAgICAgICAgICAgICAgICAgICAgICAgICAgICAgDQogICAg ICAgICAgICAgICAgICAgICAgICAgICAgICAgICAgIC AgICAgICAgICAgICAgICAgICAgICAgICAgICAgICAgICAgICAgICAgICAgICAgICAgICAgICAgICAgIC AgICAgDQogICAgICAgICAgICAgICAgICAgICAgICAgICAgICAgICAgICAgICAgICAgICAgICAgICAgIC AgICAgICAgICAgICAgICAgICAgICAgICAgICAgICAg ICAgICAgICAgICAgICAgDQogICAgICAgICAgICAgICAgICAgICAgICAgICAgICAgICAgICAgICAgICAg ICAgICAgICAgICAgICAgICAgICAgICAgICAgICAgICAgICAgICAgICAgICAgICAgICAgICAgICAgDQog ICAgICAgICAgICAgICAgICAgICAgICAgICAgICAgIC AgICAgICAgICAgICAgICAgICAgICAgICAgICAgICAgICAgICAgICAgICAgICAgICAgICAgICAgICAgIC AgICAgICAgDQogICAgICAgICAgICAgICAgICAgICAgICAgICAgICAgICAgICAgICAgICAgICAgICAgIC AgICAgICAgICAgICAgICAgICAgICAgICAgICAgICAg ICAgICAgICAgICAgICAgICAgDQogICAgICAgICAgICAgICAgICAgICAgICAgICAgICAgICAgICAgICAg ICAgICAgICAgICAgICAgICAgICAgICAgICAgICAgICAgICAgICAgICAgICAgICAgICAgICAgICAgICAg DQogICAgICAgICAgICAgICAgICAgICAgICAgICAgIC AgICAgICAgICAgICAgICAgICAgICAgICAgICAgICAgICAgICAgICAgICAgICAgICAgICAgICAgICAgIC AgICAgICAgICAgDQogICAgICAgICAgICAgICAgICAgICAgICAgICAgICAgICAgICAgICAgICAgICAgIC AgICAgICAgICAgICAgICAgICAgICAgICAgICAgICAg ROYqROXlICMiCHLjJBVzIZLvOZZjTHt2V4kpMNCrHTOuYS0rRWv1Hd0+TZuIHgKvUHP7pmGseQ9YGO0e w3OgYBkiEHQpc9LoQUw4OX0IEWThEAmrNF2SQPtmix3IRAThQMZoqAZDw6hkXgSdRDF8FKUgTcfaCD3Q FAVsO8eilqJpGCWoQEJTKIlhLWWXBPbyXFVWFNCcSE HmDgZeMaSwCLKvSAZsLHBSRE8GLxMbJ5SexG87KKDBBc3+OAxnqgXoCpmUZdQ8BZRxt4ApVQy9TG2JDD EqMtsot3EzZsIlEJCXKUijHR6UNSH1AIA5ALYiWj4UKYZjD927ydQcBB1OFk8CLtBfEN3qjh1OAjJuZU TvVawTDkr3NRhbTV2XpEEwSNvMPwPmJvjmPLTsQJ7r YTTzQnIXFRnztpkrDCEtOOScTH1xWz3qRQQfADH0EuAoJTUGFN8QGCLgPJJieDXwYJXbRSFTKY1APPqc IUP2DZXrhfDgsXPfIQmhJK8ZSEDpssXiJrRbHZCGNAj+Hn1GNY1gd8UsSHcvUwWiVF6jtf3YTZhNAjIv Q6V2fYAsX8L9KJfzRe9ZDWTbMGXpRsGfWTWYSWheLT 7QNF7wqtA6AH9RrPBpHLZvYDDrhSMrNRs5Y19cgDGiWHatHD6FUMB+Gerardo+Yo3OXQRkTKPhKEUgGrRbQC AEIaSrO0JlW2IQj3FaR7PgDY57pYymivDjITzbSS0VWP1yBVCsVKSQXJ2TwZPsnU4ykfTiGOWuDETXAr WnK74sjQWcFRPlKOF6JEWmPn0EPLHvX1EyjgBodGmf ovWwEERaMNWKDY7LXDkdyhGzeVOvdIbuGD33fBwwEE5IQw6SWcHvQS9yww4QdEGaMq8GABEoIM3GJZZa OADhZKYeLEF5EIKjAvUoHDmlDNZrYVXiBFL2URXqUZScQU5FPdItLYIzJRXtVgtcBXBzUODeis0AWHHs DMR1LHm1RCKhMMUiRCNdALcrZBFcZJEjSET8ORAzHI BaOR9CSpAcRIZaYTCvZiMqXUMdIAOphk8FKPBcUAUuJYIaSHMpGHSaNFOiPLcyVEHbGHA3SUP6HYGpDP MaVZ8GQbQiOMWrLRi5ClZvSNSqMDXbxi1XFUQkDOEtHYN7WLGuNDApBQHcXJgwWUVbHEFmIvHaDEKyYA EqJA1ZEuHwZUIuYZQ2OLvsLHBnRIKpdh7JWOFhERVr QhPxOPNiFPIwAYTqDHjkRBToCUK1SZMrDFDsVEGwPQ7EGrMzISQjKOi4RTJkHHXmKGEckw8NXIPmZPIq VvE2YIQuQDLsZVGgHNwpQGGzXHVfUKirTMFwYGAkWX3VIgBsECUtYbS3RaPdLSGgFKQhrd0JQKOeWFBp MzYyNyAwMDAwMCBuDQowMDAwMDIzODEwIDAwMDAwIG 0XZbDvHUBhGcW8IvxrGVBwQAGnas5NOOMqEZJoIXk1MTWlGXOmZCLyILjkEFYaXDQ5CRD2UYDqYDYdEL 7SPbNbWADfVxUzRQdnDFYwLXYgno8ZHYMeZAVgNeTpIdOuVBMdRCGlBHqxLHUbDNA4ETx9ECMgPDJiNH 0VFjHsNWZmLuz2QBOwERYtPZTbcn6KCHUgCXVsYXOt DjIqCVXuKTMkZXtvIOQeZJB6OOZhTUDlFSYvMV7MYdCxTFCtZzt9OJUzPFJlKZIski0MPMBlGHNqTZc0 CqOtSXYvDREfGGnnYNXhWMJ9EtTrATRyLBGmDE2XWfJrKZBgEya7DprzGMFjOBTits5WDMOqSTZ6LUMh AvGcVVXcIIFfMAviCGHaYVBnTAC3LLVgGNBaTS4EUo VtBAJdHIPrZYAkEUCaJVDlcd7XKESzREL8QiQ3QWVuWVXgKMIoGMwaYTCbHEZuHgEaDEFnDHSkHW3BMf ScOMzxGTRKHeh3YExbF9b4HIYpFV6YC6Wqm6WkCictMSVNCLpnMG4lnlByEYLnAr5SA3pLRukoExDxLU GaKnNuAKDvIUZaQrNwXMpfMQfkB7LjXAtpMv3kGWDe DiW5FJJbIXJ3FcV1VIP0GuG1K6ReHkE1NBX2MIElRyUsFV7OVu8QMpB8TOL6zNOcHn4WOXG4VfQCPzKe JI2GLZh= ID Date Data Source [id number] 03/02/2020 05:39:56 PM T [facility] Name Value Range Interpretation Code Description Data Fide rce(s) Supporting Document(s) Glucose [Mass/volume] in Capillary blood by Glucometer 170 mg/dL 70- 140 H [facility] ID Date Data Source [id number] 03/02/2020 12:41:49 PM [facility] Name Value Range Interpretation Code Description Data Fide rce(s) Supporting Document(s) Glucose [Mass/volume] in Capillary blood by Glucometer 129 mg/dL 70- 140 [facility] ID Date Data Source [id number] 03/02/2020 08:31:14 AM [facility] Name Value Range Interpretation Code Description Data Fide rce(s) Supporting Document(s) Glucose [Mass/volume] in Capillary blood by Glucometer 144 mg/dL 70- 140 H [facility] ID Date Data Source [id number] 03/02/2020 01:22:56 AM [facility] Name Value Range Interpretation Code Description Data Fide rce(s) Supporting Document(s) Leukocytes [#/volume] in Blood by Automated count 5.0 10*3/uL 4-10 [facility] Erythrocytes [#/volume] in Blood by Automated count 2.66 10*6/uL 4.6- 6.1 L [facility] Hemoglobin [Mass/volume] in Blood 7.9 g/dL 13.5-18 L [facility] Hematocrit [Volume Fraction] of Blood by Automated count 23.6 % 4 1-53 L [facility] Erythrocyte mean corpuscular volume [Entitic volume] by Auto mated count 88.6 fL 80-96 [facility] Erythrocyte mean corpuscular hemoglobin [Entitic mass] by Automated count 29.6 pg 27-33 [facility] Erythrocyte mean corpuscular hemoglobin concentration [Mass/volume] by Automated count 33.4 g/dL 32.0-36.0 [facility] width [Ratio] by Automated count 19.9 % 11.5-14.5 H [facility] Platelets [#/volume] in Blood by Automated count 135 10*3/uL 150-400 L [facility] Differential cell count method - Blood [facility] Neutrophils/100 leukocytes in Blood by Automated count 88 % [facility] Lymphocytes/100 leukocytes in Blood by Automated count 8 % [facility] Monocytes/100 leukocytes in Blood by Automated count 3 % [facility] Eosinophils/100 leukocytes in Blood by Automated count 0 % [facility] Basophils/100 leukocytes in Blood by Automated count 1 % [facility] Neutrophils [#/volume] in Blood by Automated count 4.44 10*3/uL 1.8-7 .0 [facility] Lymphocytes [#/volume] in Blood by Automated count 0.37 10*3/uL 1.2-4 .0 L [facility] Monocytes [#/volume] in Blood by Automated count 0.16 10*3/uL 0-0.8 [facility] Eosinophils [#/volume] in Blood by Automated count 0.01 10*3/uL 0-0.5 [facility] Basophils [#/volume] in Blood by Automated count 0.03 10*3/uL 0-0.2 [facility] Nucleated erythrocytes/100 leukocytes [Ratio] in Blood by Automated count 0 /100{WBCs} 0-0 [facility] ID Date Data Source [id number] 03/02/2020 01:43:54 AM EDT [facility] Name Value Range Interpretation Code Description Data Fide rce(s) Supporting Document(s) Bicarbonate [Moles/volume] in Serum 20 mmol/L 22-29 L [facility] Chloride [Moles/volume] in Serum or Plasma 99 mmol/L 98-107 [facility] Creatinine [Mass/volume] in Serum or Plasma 3.88 mg/dL 0.70-1.20 H [facility] Glucose [Mass/volume] in Serum or Plasma 125 mg/dL 70-140 [facility] Potassium [Moles/volume] in Serum or Plasma 4.4 mmol/L 3.4-5.1 [facility] Sodium [Moles/volume] in Serum or Plasma 135 mmol/L 136-145 L [facility] Urea nitrogen [Mass/volume] in Serum or Plasma 73 mg/dL 8-23 H [facility] Anion gap 3 in Serum or Plasma 16 mmol/L 8-15 H [facility] Osmolality of Serum or Plasma by calculation 302 mosm/kg 275-300 H [facility] Creatinine/Urea nitrogen [Mass Ratio] in Serum or Plasma 19 [facility] Calcium [Mass/volume] in Serum or Plasma 6.8 mg/dL 8.8-10.2 L [facility] Glomerular filtration rate/1.73 sq M pre dicted among non-blacks [Volume Rate/Area] in Serum or Plasma by Creatinine-based formula (MDRD) 15 mL/min/1.73m2 >60 L [facility] Glomerular filtration rate/1.73 sq M pre dicted among blacks [Volume Rate/Area] in Serum or Plasma by Creatinine-based formula (MDRD) 17 mL/min/1.73m2 >60 L [facility] ID Date Data Source [id number] 03/02/2020 11:55:47 AM [facility] Value Range Interpretation Code Description Data Fide rce(s) Supporting Document(s) Ferritin [Mass/volume] in Serum or Plasma 309 ng/ml 30-400 [facility] ID Date Data Source [id number] 03/02/2020 11:55:47 AM [facility] Value Range Interpretation Code Description Data Fide rce(s) Supporting Document(s) Iron [Mass/volume] in Serum or Plasma 17 ug/dl 59-158 [facility] Transferrin [Mass/volume] in Serum or Plasma 132 mg/dL 200-360 [facility] Iron binding capacity [Mass/volume] in Serum or Plasma 183 ug/dl 228 -428 [facility] Iron saturation [Mass Fraction] in Serum or Plasma 9.0 % 20-55 [facility] ID Date Data Source [id number] 03/01/2020 09:40:06 PM [facility] Value Range Interpretation Code Description Data Fide rce(s) Supporting Document(s) Glucose [Mass/volume] in Capillary blood by Glucometer 172 mg/dL 70- 140 H [facility] ID Date Data Source [id number] 03/01/2020 05:22:11 PM [facility] Value Range Interpretation Code Description Data Fide rce(s) Supporting Document(s) Glucose [Mass/volume] in Capillary blood by Glucometer 138 mg/dL 70- 140 [facility] ID Date Data Source [id number] 03/01/2020 04:09:47 PM [facility] XR CHEST FRONTAL ONLY [id number] RESULTI nterpreted by:Rakesh Devine MDPROCEDURE INFORMATION: Exam: XR Chest, 1 View Exam date and time: 03/01/2020 12:00 PM Age: 64 years old Clinical indication: Other: Hypoxia TECHNIQUE: Imaging protocol: XR of the chest Views: 1 view. COMPARISON: CR XR CHEST FRONTAL ONLY [id number] PORTABLE 02/18/2017 6:54 AM FINDINGS: Lungs: Unremarkable. [...] rce(s) Supporting Document(s) ID Date Data Source [id number] 03/01/2020 03:54:00 PM [facility] Name Value Range Interpretation Code Description Data Fide rce(s) Supporting Document(s) Albumin [Mass/volume] in Serum or Plasma by Bromocresol green (BCG) dye binding method 3.5 g/dL 3.5-5.2 [facility] Bil[facility].total [Mass/volume] in Serum or Plasma 0.4 mg/dL <1.2 [facility] Calcium [Mass/volume] in Serum or Plasma 6.9 mg/dL 8.8-10.2 L [facility] Chloride [Moles/volume] in Serum or Plasma 98 mmol/L 98-107 [facility] Creatinine [Mass/volume] in Serum or Plasma 3.65 mg/dL 0.70-1.20 H [facility] Glucose [Mass/volume] in Serum or Plasma 144 mg/dL 70-140 H [facility] Alkaline phosphatase [Enzymatic activity/volume] in Serum or Plasma 101 U/L 40-129 [facility] Potassium [Moles/volume] in Serum or Plasma 4.3 mmol/L 3.4-5.1 [facility] Protein [Mass/volume] in Serum or Plasma 6.6 g/dL 6.4-8.3 [facility] Sodium [Moles/volume] in Serum or Plasma 134 mmol/L 136-145 L [facility] Aspartate aminotransferase [Enzymatic activity/volume] in Serum or Plasma 11 U/L <40 [facility] Urea nitrogen [Mass/volume] in Serum or Plasma 70 mg/dL 8-23 H [facility] Osmolality of Serum or Plasma by calculation 301 mosm/kg 275-300 H [facility] Creatinine/Urea nitrogen [Mass Ratio] in Serum or Plasma 19 [facility] Bicarbonate [Moles/volume] in Serum 21 mmol/L 22-29 L [facility] Alanine aminotransferase [Enzymatic activity/volume] in Seru m or Plasma 10 U/L <41 [facility] Anion gap 3 in Serum or Plasma 16 mmol/L 8-15 H [facility] Albumin/Globulin [Mass Ratio] in Serum or Plasma 1.1 [facility] Glomerular filtration rate/1.73 sq M pre dicted among non-blacks [Volume Rate/Area] in Serum or Plasma by Creatinine-based formula (MDRD) 16 mL/min/1.73m2 >60 L [facility] Glomerular filtration rate/1.73 sq M pre dicted among blacks [Volume Rate/Area] in Serum or Plasma by Creatinine-based formula (MDRD) 19 mL/min/1.73m2 >60 L [facility] ID Date Data Source [id number] 03/01/2020 03:54:00 PM [facility] Value Range Interpretation Code Description Data Fide rce(s) Supporting Document(s) Magnesium [Mass/volume] in Serum or Plasma 1.8 mg/dL 1.6-2.4 [facility] ID Date Data Source [id number] 03/01/2020 03:54:00 PM [facility] Value Range Interpretation Code Description Data Fide rce(s) Supporting Document(s) Phosphate [Mass/volume] in Serum or Plasma 3.8 mg/dL 2.5-4.5 [facility] ID Date Data Source [id number] 03/01/2020 12:23:32 PM [facility] Value Range Interpretation Code Description Data Fide rce(s) Supporting Document(s) Glucose [Mass/volume] in Capillary blood by Glucometer 168 mg/dL 70- 140 H [facility] ID Date Data Source [id number] 03/01/2020 10:32:37 AM [facility] Value Range Interpretation Code Description Data Fide rce(s) Supporting Document(s) Tacrolimus [Mass/volume] in Blood [facility] Renal Transplant Target ValuesImmediate post-transplant: 10 - 15 ng/mL First 6 months: 6 - 15 ng/mL Greater than 6 months: 6 - 15 ng/mL ID Date Data Source [id number] 03/01/2020 08:26:46 AM [facility] Value Range Interpretation Code Description Data Fide rce(s) Supporting Document(s) Glucose [Mass/volume] in Capillary blood by Glucometer 155 mg/dL 70- 140 H [facility] ID Date Data Source [id number] 03/01/2020 04:46:41 AM EDT [facility] Name Value Range Interpretation Code Description Data Fide rce(s) Supporting Document(s) Leukocytes [#/volume] in Blood by Automated count 5.3 10*3/uL 4-10 [facility] Erythrocytes [#/volume] in Blood by Automated count 2.89 10*6/uL 4.6- 6.1 L [facility] Hemoglobin [Mass/volume] in Blood 8.6 g/dL 13.5-18 L [facility] Hematocrit [Volume Fraction] of Blood by Automated count 25.7 % 4 1-53 L [facility] Erythrocyte mean corpuscular volume [Entitic volume] by Auto mated count 88.8 fL 80-96 [facility] Erythrocyte mean corpuscular hemoglobin [Entitic mass] by Automated count 29.6 pg 27-33 [facility] Erythrocyte mean corpuscular hemoglobin concentration [Mass/volume] by Automated count 33.3 g/dL 32.0-36.0 [facility] width [Ratio] by Automated count 20.2 % 11.5-14.5 H [facility] Platelets [#/volume] in Blood by Automated count 133 10*3/uL 150-400 L [facility] Differential cell count method - Blood [facility] Neutrophils/100 leukocytes in Blood by Automated count 81 % [facility] Lymphocytes/100 leukocytes in Blood by Automated count 12 % [facility] Monocytes/100 leukocytes in Blood by Automated count 5 % [facility] Eosinophils/100 leukocytes in Blood by Automated count 1 % [facility] Basophils/100 leukocytes in Blood by Automated count 1 % [facility] Neutrophils [#/volume] in Blood by Automated count 4.35 10*3/uL 1.8-7 .0 [facility] Lymphocytes [#/volume] in Blood by Automated count 0.62 10*3/uL 1.2-4 .0 L [facility] Monocytes [#/volume] in Blood by Automated count 0.25 10*3/uL 0-0.8 [facility] Eosinophils [#/volume] in Blood by Automated count 0.03 10*3/uL 0-0.5 [facility] Basophils [#/volume] in Blood by Automated count 0.03 10*3/uL 0-0.2 [facility] Nucleated erythrocytes/100 leukocytes [Ratio] in Blood by Automated count 0 /100{WBCs} 0-0 [facility] ID Date Data Source [id number] [facility] Code Description Data Fide rce(s) Supporting Document(s) Bicarbonate [Moles/volume] in Serum 20 mmol/L 22-29 L [facility] Chloride [Moles/volume] in Serum or Plasma 102 mmol/L 98-107 [facility] Creatinine [Mass/volume] in Serum or Plasma 3.50 mg/dL 0.70-1.20 H [facility] Glucose [Mass/volume] in Serum or Plasma 105 mg/dL 70-140 [facility] Potassium [Moles/volume] in Serum or Plasma 4.0 mmol/L 3.4-5.1 [facility] Sodium [Moles/volume] in Serum or Plasma 138 mmol/L 136-145 [facility] Urea nitrogen [Mass/volume] in Serum or Plasma 73 mg/dL 8-23 H [facility] Anion gap 3 in Serum or Plasma 15 mmol/L 8-15 [facility] Osmolality of Serum or Plasma by calculation 307 mosm/kg 275-300 H [facility] Creatinine/Urea nitrogen [Mass Ratio] in Serum or Plasma 21 [facility] Calcium [Mass/volume] in Serum or Plasma 7.0 mg/dL 8.8-10.2 [facility] Glomerular filtration rate/1.73 sq M pre dicted among non-blacks [Volume Rate/Area] in Serum or Plasma by Creatinine-based formula (MDRD) 17 mL/min/1.73m2 >60 L [facility] Glomerular filtration rate/1.73 sq M pre dicted among blacks [Volume Rate/Area] in Serum or Plasma by Creatinine-based formula (MDRD) 19 mL/min/1.73m2 >60 L [facility] ID Date Data Source [id number] 03/01[facility]2020 05:06[facility] Interpretation Code Description Data Fide rce(s) Supporting Document(s) Magnesium [Mass/volume] in Serum or Plasma 2.0 mg/dL 1.6-2.4 [facility] ID Date Data Source [id number] 03/01/2020 05:06:56 AM EDT [facility] Name Value Range Interpretation Code Description Data Fide rce(s) Supporting Document(s) Phosphate [Mass/volume] in Serum or Plasma 4.7 mg/dL 2.5-4.5 H [facility] ID Date Data Source [id number] 02/27/2020 03:09:42 AM EDT [facility] Name Value Range Interpretation Code Description Data Fide rce(s) Supporting Document(s) Progress Note [facility] GIKDLf7xVnDNOkDd14/KIEltRFPnk7BrHXkxNDt0OGdiEFTnU1RyUMS0oG5rOBW3PUmGDaWkXrRlFVRb lbm [file] ICAgICAgICAgICAgICAgICAgICAgICAgICAgICAgICAgICAgICAgICAgICAgICAgICAgICAgICAgICAg ICAgICAgICAgICAgICAgICAgICAgICAgICAgICAgICAgICAgDQogICAgICAgICAgICAgICAgICAgICAg ICAgICAgICAgICAgICAgICAgICAgICAgICAgICAgIC AgICAgICAgICAgICAgICAgICAgICAgICAgICAgICAgICAgICAgICAgICAgICAgDQogICAgICAgICAgIC AgICAgICAgICAgICAgICAgICAgICAgICAgICAgICAgICAgICAgICAgICAgICAgICAgICAgICAgICAgIC AgICAgICAgICAgICAgICAgICAgICAgICAgICAgDQog ICAgICAgICAgICAgICAgICAgICAgICAgICAgICAgICAgICAgICAgICAgICAgICAgICAgICAgICAgICAg ICAgICAgICAgICAgICAgICAgICAgICAgICAgICAgICAgICAgICAgDQogICAgICAgICAgICAgICAgICAg ICAgICAgICAgICAgICAgICAgICAgICAgICAgICAgIC AgICAgICAgICAgICAgICAgICAgICAgICAgICAgICAgICAgICAgICAgICAgICAgICAgDQogICAgICAgIC AgICAgICAgICAgICAgICAgICAgICAgICAgICAgICAgICAgICAgICAgICAgICAgICAgICAgICAgICAgIC AgICAgICAgICAgICAgICAgICAgICAgICAgICAgICAg DQogICAgICAgICAgICAgICAgICAgICAgICAgICAgICAgICAgICAgICAgICAgICAgICAgICAgICAgICAg ICAgICAgICAgICAgICAgICAgICAgICAgICAgICAgICAgICAgICAgICAgDQogICAgICAgICAgICAgICAg ICAgICAgICAgICAgICAgICAgICAgICAgICAgICAgIC AgICAgICAgICAgICAgICAgICAgICAgICAgICAgICAgICAgICAgICAgICAgICAgICAgICAgDQogICAgIC AgICAgICAgICAgICAgICAgICAgICAgICAgICAgICAgICAgICAgICAgICAgICAgICAgICAgICAgICAgIC AgICAgICAgICAgICAgICAgICAgICAgICAgICAgICAg ICAgDQogICAgICAgICAgICAgICAgICAgICAgICAgICAgICAgICAgICAgICAgICAgICAgICAgICAgICAg XADgTMUwKADuVRCsZIOcHOQeYSWrKZSjFPFnSPZmMMKbCTOhLLBnTHTcIPRhTBp4Y6myJRMnOKQyPW2e ONb1Mp1+QOhZNwEaHRG3brWnzG5UIO5mh8PqSTlmBS Yqw6YpDJe3DS0KWATuYBtxCK2ZFZsozg9ZQPDbUYEjvDWVd9ifLaCmOZE6XKGmUysnVF2KSHAjE7dble IpIQQlGZSHRK0LJjKeP4LpgM63ICZKPl3+INoucmJrWhnKKzW1GFHqi5HlCUc4SR7XCOMwDryok1QsEo JtSWQIITsqIB2KKWI4TBIoXZUeKd5DDLUaP478qqTj DZ9ESa9OFhGfTJ0dsj1GZhIlKVXjKcyCDtn5XCcvGN9IlGGfYNdCgr0maqIzjxUUq3LvvcDjkDGGXT6m ReKfmiEhxB4wAQ1KNBG3NKXbTg5mEZWwQJPzIrMeJEGKIF3JFRJkIPGrwPPuTQHaWKHIBV3DXZnpJRB6 GLUyuyTorGVlJVsnTP6BQOGaruTxNZbuAHMCQTu+Pg 1FQY4vy0QtJUkrECYeSR6xms5IRKtZJnKcF7L9xODyU3M4GXygBh7DRTSmXQYvDMteAWFDQIziAS2YVC 5ocaM6SB3BkXIyVBDzYQLmjMHdFMj4V78mvLNrTBwjUM2AGPG+Gerardo+Lj9ZUXDjTNJaNIIvEqNwPFTORq YeE0YkS6WUo3KaA4QzUG07vRabkqPmBPlqSS6PBK6e RIBuDXDUKB4ZkAYaeF0tzrIdYXAyZMHEXaYvE46ryZJoOBBrCHQ6ETQnTy1BISUbC8FkdmZwlUkwlvCo CHLwTJJYJF1CTQqnejIicQIosTsjKB29vYsvBT9LWn7DBdEdDX4rxt1FbIMaMs3WTTNzGu7FOEObWFYl JRUdXKN6QOMnQpXyOKanIAEcZDFoMWU2CCMuQPXlTE 7VCxMaCSNmPKF3IJGnPQLzWEQddt4SENEoWDTxGTFoSuTdYGLcRHBeRIzgGZFyVWHwHHN5XZBwFNNgFT 3VSpBnYWWiHOM7JHPbPZKyPEPvbg4QSKWnLLTvRQw2PPJnLINxOHLrHWocROHyZMFpQYZgJGJqBDNoPM 6YRyUaXXFxOFFkTBzvGBXvUEFznv2YLJDvIFHjFpO5 LEJbUAYzTALgQXvmUGBvIPF2BvS9EPTiWNShQS9PEwHuLNDzPZQ0WjdgYCBfANZglw9TTJBoFQXgLIQy RfVoEDOoZIZnYFolBKYbWGZ9BZkyAVMiTBGzOX0WVxYrATNpBSDlXJfoPJMpLSQbad7ZBZKfMLWuFyRe RlHxWBUeZKTlXRpjMEIzQCN7ZfX5NJRzAPIeIV8AEq CpTEEtSKX7XHYtIORoYISxvo6FIHObJTWnExA6ShGiBMLoUBMyWYyiZGIhVQO7MzKgLAHrGRLhPR3OGk UrGJXsVLc3XNXnOELeJMNwpd6UUTWbKSBiFTp6MgWmIYNeRHAmCJy8gaOwaEMePLm2CO9FV2WxvgYjXl XRMl5Xf320JGReDOHmIg4XV5yyCk5lHAHpUSEBDh6T YZn9KMTnSwL6SED3TON2IGp9NaW9QOWoM5EbZsBoIVX0XtW+IImhTjVwFUF2SqahRCeoDqh1NIt8OlTf DsWcM4FyBHGxIY4kBASJUb2+NAeyiUOmgYizFTFZUgP8EPprGKstCZLIMl4Z ID Date Data Source [id number] 02/27/2020 03:09:36 AM EDT [facility] Name Value Range Interpretation Code Description Data Fide rce(s) Supporting Document(s) Progress Note [facility] XHVQDi8lHtQVBaQo03/CQRqhAXMgt8OfIGfoPKo1XQdtJQRmF2NkSCU0sX6nTWG4MRlGSdQgQkAbXJRr lbm [file] SIjxXGMdR7BwEkO8DBA1NR5bKZZIDt9+ZXvkdDTmgWozQMDYKkR4FBJ6OGjsBBINQi1P ID Date Data Source [id number] 02/07/2020 02:28:00 PM EDT [address] [address] Patient Name: Moisés Bishop Exam Date: 02/07/20 : 1955 Ordering Doctor: Breonna Hastings NP Attending Doctor: Breonna Hastings NP CC: [facility] MRI BRAIN WITHOUT CONTRAST CLINICAL STATEMENT: Malignant [...] or mass lesion. Professional interpretation performed at [facility] . End of diagnostic report: [id number] Signed: Scott Breaux MD 02/07/20 1609 Interpreted by: Vika Breauxscribed by: Scott Breaux Name Value Range Interpretation Code Description Data Fide rce(s) Supporting Document(s) ID Date Data Source [id number] 02/07/2020 01:32:00 PM EDT [facility] Name Value Range Interpretation Code Description Data Fide rce(s) Supporting Document(s) BLOOD UREA NITRO 83 MG/DL 7-25 H [facility] ID Date Data Source [id number] 02/07/2020 01:32:00 PM EDT [facility] Name Value Range Interpretation Code Description Data Fide rce(s) Supporting Document(s) CREATININE 3.1 MG/DL 0.6-1.4 H [facility] GFR 20.3 ML/MIN [facility] Stage G4 - Severely decreased kidney fu nction The GFR is an estimate of the Glomerular Filtration Rate. It is an aid to assess a patient's renal function. It is not a conclusive diagnosis of kidney disease. GFR normal is >=90 The MDRD GFR calculation is considered valid between the ages of 18 and 75 years only. 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+PB+NI0+rbFyYmGBckn8gApPn0nwfK+MkG [file] sjJXfbBs6HVWZBL0VHNd== ID Date Data Source [id number] 02/07/2020 10:24:11 AM EDT [facility] Name Value Range Interpretation Code Description Data Fide rce(s) Supporting Document(s) Progress Note [facility] ITEMMq5xGfZNQpZz74/FHXooZATft6YnYCouGJv3XHyhZKXoE6FaQZU7dV9mVIH9QHrVBvKiIxGoIMKc lbm [file] KHRVQnYcVOQtDUhwWGBAMt5G ID Date Data Source [id number] 02/02/2020 07:04:09 AM EDT [facility] Name Value Range Interpretation Code Description Data Fide rce(s) Supporting Document(s) Progress Note [facility] THWZBv5xXpUYObUb07/UEDckCJRac9XoHOobVAr8HSzwODNyA2JmDPH7tX4qEFJ2SBuKPpRnQmBvBOU9 lbm [file] DQogICAgICAgICAgICAgICAgICAgICAgICAgICAgIC AgICAgICAgICAgICAgICAgICAgICAgICAgICAgICAgICAgICAgICAgICAgICAgICAgICAgICAgICAgIC AgICAgICAgICAgDQogICAgICAgICAgICAgICAgICAgICAgICAgICAgICAgICAgICAgICAgICAgICAgIC AgICAgICAgICAgICAgICAgICAgICAgICAgICAgICAg ICAgICAgICAgICAgICAgICAgICAgDQogICAgICAgICAgICAgICAgICAgICAgICAgICAgICAgICAgICAg ICAgICAgICAgICAgICAgICAgICAgICAgICAgICAgICAgICAgICAgICAgICAgICAgICAgICAgICAgICAg ICAgDQogICAgICAgICAgICAgICAgICAgICAgICAgIC AgICAgICAgICAgICAgICAgICAgICAgICAgICAgICAgICAgICAgICAgICAgICAgICAgICAgICAgICAgIC AgICAgICAgICAgICAgDQogICAgICAgICAgICAgICAgICAgICAgICAgICAgICAgICAgICAgICAgICAgIC AgICAgICAgICAgICAgICAgICAgICAgICAgICAgICAg ICAgICAgICAgICAgICAgICAgICAgICAgDQogICAgICAgICAgICAgICAgICAgICAgICAgICAgICAgICAg ICAgICAgICAgICAgICAgICAgICAgICAgICAgICAgICAgICAgICAgICAgICAgICAgICAgICAgICAgICAg ICAgICAgDQogICAgICAgICAgICAgICAgICAgICAgIC AgICAgICAgICAgICAgICAgICAgICAgICAgICAgICAgICAgICAgICAgICAgICAgICAgICAgICAgICAgIC AgICAgICAgICAgICAgICAgDQogICAgICAgICAgICAgICAgICAgICAgICAgICAgICAgICAgICAgICAgIC AgICAgICAgICAgICAgICAgICAgICAgICAgICAgICAg ICAgICAgICAgICAgICAgICAgICAgICAgICAgDQogICAgICAgICAgICAgICAgICAgICAgICAgICAgICAg ICAgICAgICAgICAgICAgICAgICAgICAgICAgICAgICAgICAgICAgICAgICAgICAgICAgICAgICAgICAg ICAgICAgICAgDQogICAgICAgICAgICAgICAgICAgIC AgICAgICAgICAgICAgICAgICAgICAgICAgICAgICAgICAgICAgICAgICAgICAgICAgICAgICAgICAgIC GoARDnCUPjTPDmSKAxWSUgTPTqHJq4I7pwPOViATXdGY4sVJh3Ic4+TOfOHdKsMQZ2mnRhcK2TVN8hx8 DjPYsvDCNar9RkPCz5LT8PYPTxSMgvYW3MEEocnp7B COIkXISihCRTw5osXjWqCVF2CPMpWcfsBL9KIIQuL2ecwaWmHFPqQHHHQC4ZYeNqI9FutH88PMQGPs8+ EPlvvwJuLidURbX3FLIyu4QsUQq2ES3AVHOuJgmbh4HdNfWjIQDDGTwtKA8XBMP4UFLbOBCoEz6BGLFp H661ceUtTV8SPc8ADcZtJA5dtb1MMsOoIJJyHclOKe d5JVhnOJ4RqQEkWXyEbs2fjmMzspSHo2OucgFssNWPAU7rRmGqudPffS4dRP1KVXE3WZJmVa7pLWXwYX KjWeW1ERZDNE1QPBBkYQIoeLVzNPUqDJTGWF3GRVjgNVM5OCQihkNgeYPrTKxjAR2KMRTrgzKiFWpiDE BSDQo+Sq4RJW5zy0QpDAnnLILnZO6cir9MZJeLNsFz V8U8qCFyD0U8MBriIg3CEYEhLZAxCLyhRGYGIUhbRS2CZG1abbO4PF4FuPSnSSPuMSEknHElXLf5Q94d lSJkDObgJW3EULT+Gerardo+Ec3KLAAvGHNuEVJaZhSlHJQZAhSrR6PkC5LAv1IoS5XpKE60jEqojkVcUCiy VP3CYI8mPFPjAHKPFU2VrUAyeG0qqvOtGFXiVSZHBv KpT27ntAOlJRZnXCK2RDNtTh5QPLBeK2JsqeRktObtgzGfGNMwNBLBHC8VRTgkfqZqcTUfjVwlYJ76bP zlQV8BEs8DVzJiEB9swi0XkFCvCx4IHSPcRm6LGHQpCQAqYBIwNKQ5ROReAxZvIRdxBHRtMAHiLHX7NB VrFHKkCW2GGpZcNBSpGOn6PQnhVHSaFLDczf3HUZTz ZZAiAOG9QqUzETHuBUGdIPjmBJLcFSCzWRT5NCOoYTRsCD1RMiMtCIFgSKG6OiKdEAHsHREvzs2RDRMt QSXeVvy4UHSfHQFnIUQcTVarADYfOMNeVAM6PXWoMQUwNC2HBfJuMXWlPRCmKeJkQHGmIBHejs1IVBVr QQXpRUFoEMYyGDSpWTAuKVsgDZBfIJF2ZwzoCCOjGR TuAN2GYuKvYMSzIQG9PoCqIVWfZQOtcl8OSCVqXTMrFVW2GJXyVOOvLCRrTJimHCDaDQX1IXT6WKWlRJ HuSH7AHtBsPGQtKXpcFxOyYEYsSETtmd8KQROoWHYyDdU2UYXlGFAlKTXyVQoxKWJpQXR2NlemONCpTX BzOR6VNhYeXLOfVTz8TzstSIJuXKWosc4BAZPdBAUb KBFtWaNbUXEcKYIhZKwwKXDsJXV4UcT9EHAfXRXtUK0DXgQhIFPsXHf1GnXsYPTyVKHifg5ASHPbZKZb DYw7CtThWBWrDGCfVTb0ujVokNJaNQo0DO1CH7WpenOqGfPPDu4Ux989RMAvDVQeZm3HU8fqLj1tYUNp BULZZz7CVKn1BUKsPUE0YERiS4L3M4MiGKB3VGS0Br TiOSN8PtTjOTJ+TWg2S7QuPYv2QlG5IIB7HkIrFDP9BdViFTS8UeYkTvG5UI1fWJKACo5+DQpzdGFydH xkSIMXRqXgDcG2FJmqEIKJMm4E ID Date Data Source [id number] 01/10/2020 03:46:49 PM EDT [facility] Name Value Range Interpretation Code Description Data Fide rce(s) Supporting Document(s) Progress Note [facility] LOBNRg2dRoPTFxUg10/SKYhiUERjt7JwFVhtYYa6RXbmJAOdP8RdQIH7rQ8bNTE8ELuBQiRdPqSqWGZj lbm [file] EMV0QBU0Uf0dRLVVDg7+REdjhPOynOmkVEWLYiF5HDUuSGjeFBNBCt8P ID Date Data Source [id number] 01/08/2020 05:13:35 PM EDT [facility] Name Value Range Interpretation Code Description Data Fide rce(s) Supporting Document(s) Discharge Summary [facility] QLAQRc6bNhRUUmKm81/GHJquKWFuc4GaYGyvZPn7QJdnRTNaW2ZjAJE5vS1dXEV6ZYjQNgSuCfXjOpQr lbm [file] ICAgICAgICAgICAgICAgICAgICAgICAgICAgICAgICAgICAgICAgICAgICAgICAgICAgICAgICAgICAg EXSrEHTkXHYqVYVtRWYbSCLoARCjOEEjGMHxYFUkJKCxDFKaUROiXZ7MEKFoUZWjIMGeKSHbNTXpYBXg ICAgICAgICAgICAgICAgICAgICAgICAgICAgICAgIC DsKCTgJSOoFGKvFFBtQMWnOYDmUITpZMApUCGiALZnNZDaSFSgTHAnZTTgHQHpWCIqSF0LOYDiGIRaCR AgICAgICAgICAgICAgICAgICAgICAgICAgICAgICAgICAgICAgICAgICAgICAgICAgICAgICAgICAgIC AgICAgICAgICAgICAgICAgICAgICAgICAgICAgICAg TR7EETKkAFWaYMYdOAOkIPDcLZMkIASlLEBcVBErWDHqFLSjUGIvGBAnBYAcJQUgGXMqPHAhQUNnKZUu LEPzEAOvXULjSYFxVXNpSRLbLSWrDSBzMOEeCNEvJXBlHUOxCZRsPABhXI1AKNDuGTGfWIFfDUJzGCGd ICAgICAgICAgICAgICAgICAgICAgICAgICAgICAgIC XoEXDfWMUhEIGrCPGgZONuWVYjYFYyTETjVWPrYDJiBWJjNMIoWBAwSMQoZWXxJISqKCXmTZ5WXQJgNO AgICAgICAgICAgICAgICAgICAgICAgICAgICAgICAgICAgICAgICAgICAgICAgICAgICAgICAgICAgIC AgICAgICAgICAgICAgICAgICAgICAgICAgICAgICAg YVPiKT6EEFDvRKUqRTNoKCXlOYDhOTPtWCShNDInTVUaVEBkUJEjYRRcQLWwISTvXFYbETUfZNKzTNXy BLHoNUEnJUZhHIJiDVEsJAWsWUGhFJKnJTYvQANgLQTmDOSvBPIqELKkALGfXB7AENAhTKWeVBCwWXTw ICAgICAgICAgICAgICAgICAgICAgICAgICAgICAgIC HhWXNvPHPwOWPmTSBgUHWcTRDuKZNqDYHfJJXdBYRbNBBmDRBzLPSiYGKeKPVvNURsVLXnCQTaAZ5UDK AgICAgICAgICAgICAgICAgICAgICAgICAgICAgICAgICAgICAgICAgICAgICAgICAgICAgICAgICAgIC AgICAgICAgICAgICAgICAgICAgICAgICAgICAgICAg VWGiCNTnET8HBKUkHUDzQVZqMCAsDYTjKNKsLAYhYQAhSZRxFVBtTXJyQVZyUFIfZAQqJBJmDXAbQYZy TRIqYWRnCJWhYXJgPTEuVLVjOSCiMGJpEOUwUTXyQRIbMVAhPINxQGGiNVXgJRSwAQ0CJC89kDMww8L2 WMQhRW3hxva/Do2VDRrhtoAvmUTiRF8CVjHgAD8wdp 5VOmPsLV9tei7BNHnHYyKgT7F4lITuYPNgDDIUHzBlH96dTUvhGq41PXzlJBYdFdBpQSb6Ba2SSfWyX7 edBZVuOhM5BIPaGmN9RPZhFvU5IXJePjDiVLBoVQYiNU5RWMXtU495thAuHS7QNw5RWmRrOV4vza5DHi SjOTYwEloNSja6AYtbKP7IqMHnkLAkEaJgRBMFDgXu O8pvi0GoZsvhCCOBSYymWN4Ue9AetHBwXJq+Pb9QRY6ki2TbPKeuJzFuUM9cfp3XKPzRVtOzF5VjnHlp MZOtd6RoDEXfADAXuN3fLTE0NOA3SZVijkwypGnzYEmkU7wibkqmWSNlKKYwNl2jZZ9zRINbLCEwFrLy LENTKW0EMEHuTNQsmZTmSZAlRYZQCP1JLTaaCQT8PJ FibiBeiIXxJUdjKD9DCWAmdeLeIbQbVABKNRh+Tz8ERH4nr7PpGYbyNHFeFU5jlf9VBAyDSzJlB9E9nX OxY3K1YNwvOe3GVXQnCZBsUtZkZFNHXZggKM0XPG7bnmN8CH0RwCPcYNXhIXGvkJXoNHi3F83hnRJvAJ niNJ0AHSJ+Gerardo+Vc7QOQIbQGSwSZBfHdRePENOYlXp E5XyV9OAb0AiD9QwUG30zDjlknRcOPttJF2OXG0uAHIqZKQLLB0InEIyrL0strTtQlXqSCEXSkNoW14i jUPrHGWrUJF0AMXhXx6TOGVwD7SnrtSphNbtowZkREHwUFQJUF0RUNsvybXouDWbqLwwWH64yEuwCB4D Gd7FFjXmQW1cjr8KzFOeGu8UTQTrXS3ZZMHjHVBfWU WvEAP0JNCmRfRqTAveQKPxGDUpHZA8NBWxIHEvNA3ZOoLoSZUwGcJrUUFjSJLjJPAerm6XBWBtRIPgZA j3HGPbYGKnTKXuMFfcEZMyEQPyFGS2SAIcDEDgBL0PEyWsGWAfDQScBMXaYWZcJNJorl0HSCEmWXDgUW A8LFGcZLFnYOJjTLfsQFYxEUR5JhTrSESxGCFaKD4N PqJrBNGvYHt8LDTcQRJgQAFyaq5OLYOsAYOoDFYhSYUjQIQbIVDvDUbrDQDsWIAsCxT7XEUgBAZdZT7U NwThFEDrCGX7EYpjAIZjBSRvnp2HLPQjZAXjYEkfMSNrYSLoGUIaTRhhKQExUTP6NfX3NRAgLWLjBG9B LlPgHHTbXTQ5SiLvWANfWGFlkd1ZFEQdXRRwJfF6VN GiYBRfGUOqIIubVWRnEVL0FPD0IGSyKGNeMU2TWsQeMEOvOQyePDDvTLEaIUHuph2VVWQoJIKzJpU5UP MfRWEtAUZbMPdyWTUeKXQ8PAW7ADTuTASvUW5JSxIlVZMaUSq4QQElZTShUITuvd5OKDJkBRRuGAauQX WpGWXpRUHtHNbyRRFqPLY5Mao4ITTsNJPwCR5OWjNa LQRbHDm1RGimAYPrBRPcxo8EXWBpKJNzOWS9JCAdQZQjVMJpYSozDZHfLAKjRtL4GJBqLNUmOX1FLcZq ZCRuBeRyJVGjJSQbKXCtbs6TEEHxRBLkRbX4UcBmRCMeDWCrXRbrKZKcLVPaCjZvHWTpUZUmCY0WVdOm NZevROFSCwk6JGfqO2i6ELAoYU1CB1Liy4XuQgyyIY VVXOyzUP1ywiSbDDPyRo7FX6rUKoqfGsEoWXMsJCE5VHNiTvC4NMJeLOZ9ZABeUmMtJwF3DU7kBSI1QM F1XsN2TIy7BaNzMZY5XVE4ENU5TJBgLbKdLWZyPaJkRN2KPt9AGnN3ETQ4aJJbTk7JDfG7XMAUWeXbQG 9GDQo= ID Date Data Source [id number] 01/08/2020 02:32:29 PM EDT [facility] Name Value Range Interpretation Code Description Data Fide rce(s) Supporting Document(s) Progress Note [facility] YWJRLm7eSyDJXfEq51/EWJeyTKUzz2LrBOkrFLa0YNieSQRhF9CjQYN4kI7lUSY5CVvHSgVmPbIcVaYz lbm [file] RrJtWpYrALQpSwjjTWBuOxY5Wt9rQEJZAg2+AWwpvKVjjVpnAMBEPsR4VtC6VTuhOAMPGv6P ID Date Data Source [id number] 01/08/2020 09:00:59 AM EDT [facility] Name Value Range Interpretation Code Description Data Fide rce(s) Supporting Document(s) ED Provider Note [facility] HPLFBt3dGfTYNjMn15/ZJNubZKDlo9GiEUbqCUr8NZmxRNAvH1FkRKE0rD0oOED2EArHYfGpDlLuOwBv lbm [file] LaiLwrPOEUMKKstFSgMULTp4DrkyHsqTUGJUW9sSfq NaQiaqhdFYRBFTL0TFBuCblyKdShEMRwVLltSYNMVKqZNjCbU5Ecx1MfEaNnXZBeSUFyY9eBSeVgYVAa HyBokSqbQS9VKrHbT3OdmzDluPE4JUSaRXZRDnBmK4VzQAChTSMzYAMFBOs+Gz7BGQ9ph5WkFPn9WuBf PA0fwq4LFGvQHlItD3U0fWGjG6F9WXnwXf1YYMYlCR UwXrhhGZBOPHohTZ5JUX3updJ2JA7EdOLcEGFvTFQdsXKlYTm7F16wsHYfPMidJT7JETY+Gerardo+Pg0KIC CjZRBsYPAxBsTdQNJZEqXfB3UeU3SXt2NnV6BbAL38zZndczOpDEeqBD4XVG6eNWYkTZSVYG4YiQIjxS 8wijH1FDOjBRMLNiWeE44tfZZaODPhDKBdRBLvVl5Z EBNnA2XfaxCjpSxgltXbMASsBZHLFS9GKGixjdFzeXBhtHhiSS68nSpsYE5HVx1MZyQwVE0qnl9PtTLh Sn1YHUN3Br1SCKBeVCZrCWRqLJB9QUMhSbVjBReqXDLfWHFoGEF7ISLyXRLyWQ2NBhThUYIfYYx7PHIc GGOzPRLbjw1KKFKbIOI3XMU5HLWzLCCeXKQpAMpiVP EkCWBkEQX5XBLuPASaDE1MPvOjPZXkGDR4EwCyWVSsLNShnk9CCSOzWCLxKLZ2RzFcPENrNZFmCAtiTG EsGCE7AnK6XJHvEIEgCW8SAwAxEOViQUF9HsVoOLVkQFUvbd4EPAXsDNGqZURfQMKyIXUbDIYyUTthOE BcRNW5OLO5VWGaISEaWI6ZOfCkJKVnRDJjKoBrCCSu RFToxm9QDXDjNSAfTsN7CJXiYOEnZIBlKHksKRYsIPC7ZRhbLDMeHVFnEC7GQeTpPTJtNAL4GJZtOHYt AKEarz3LFZDxEHIdLAitOfKmKYUsIENeNEjwLQRrBORvGES0KDSpRPVqSK1TJyGrXUQrRuR4GamrMNJz DYElnk6PMPFuXDVeYrc2DYRwGEAvABFvWVyxVTXsGD A1GPAlTEXgDYCsQE4EAmYkBOHiMoBmUfeoXYDoXBUreu1ZUVMpBLIzYQF6HELnDKKuEPCqXVemAPEoPE D1Oyh0UGUqKAGvAV8FVmRdVFDeLzG9DWCkDVBaHHZxbw0ZWOXtLUDeXJk3WhTmHQXzCJUkAOteFFOeGR PuDWJ8XQVkQCJiEM5ARbYpAWBsEbTaLIAlXGUtTVSb ge8IQFUqIVZxNpG7SqJgLVKsNFEiNHyyIUMlCQIbQBc4KAOgYMWcST1TNkRgTJOgSeY3NvQzSWAqUKTb we9ELBQjNBQqDgRfMeOkGWGeCZQnEOeyHUGeHPZnDUI8ISFfCQYqCE1ESiVsQSKeSDRfSAWmJHGbAWCk yk0BEDFvEEC7UEFnRSMqVUPgMPNcMNqdQEIuNBU4Jp V2DJBvPJAiTC7GWlKlKDDkAGL2GlItNSYwXLSwiz5KVGCzVRD1DgViMfIaZQEoDUTjVTjzCMTtMUS8VX W2IUQfNXFlOM8PZkUiOGPkVAveXAAyTTHxKJQjwk8RTUGvVBF1BfHyJlWuAFJiPJTgIZvnDFSgPNB1HF K7IPCnPNSxPH2PEvVgAJCjHHdoHBntMYZuRSFxhn9R NUDzVKA0HPPoYIYuWBQjOMFoSIojHRFwMNX8HCn1DGSaXPPlQL6YKuQgQYFnBZy4RxGzULIrFNKopv1Y CXKyMKP7IMs6RdUaJQTtWKWvQAnzBWTzGRArRJReVQAgDZVhYO4QJzIqAVzvZVQDCsm2KFjdN3k0TCX1 Or6VC7Zcp7ZrOYNnCTKJYJsuIT2fabMkFMJyJc9JP0 yEQjz3IBBrD4XjHXW5PiA7WVZqXkh2TMGqM3KqUXVbJzz3SB4fLQsrWFE7CDEhZrcoNUTqLbNzDLTqBJ InKBUjZQGqSIUiIfGiZS3PNh6AOwH3DWP2eNWjEs5ZRNCkDWJYPxTnQX7YUZk= ID Date Data Source [id number] 01/07/2020 09:51:13 AM EDT [facility] Name Value Range Interpretation Code Description Data Fide rce(s) Supporting Document(s) Progress Note [facility] IRXFUm4nBbDOZaSs35/VUTsqNIEch4XrNYkrCSr2EKarDKSfZ1AtNIP4xH3sZTS8PUfKIiPsCwPwBxUg lbm [file] REINSURANCE CLERK+Cd0MERAoWLa0V9T7MRKpITa4F4OCR5TBUBGcRB bhVVtoBJEdVTj9K1W0UEZaZ9ACC9Kdtvvwzc5+LP4PO21OELQuZKq6Z4T4sQYkP6I7wYnBcRV3ZY8BUT 5MnHt0mNAkmR8+ME1PT4NPQlXnFTm1F1J6oKDkS7Z2iOdVlOU8ML1PFM3PoTBkPGAtanSlIl1lI7HZVL dZMvDYCOS3LI5TyNQsMT0WhVUIJ9UiuHUlKr4hCNwl zTMpkR8uTg1dCRzqHL3WYyIIEXwZVFS4XY9TkZHzXD9HbTBEJ9XmfCAvIj3fVAsnqMDrxn2+RR1BJYAv Ye3GIb4+CBfonlHlKqnQRgK2TOVug8ZbKAa9UG9GZM7udVinXKQ4Ds0ZcLR6pTXsC0gYPY1QaODxT27l nTAhWHGzXe0CRjL0poIhwU1GKC24eWZxs9B0BWKeI4 ukRUinq42dHZctBOwQMC6wMSUASWtcGOukOOJ0FtYxyaguXUXaYu3WWvYvVDb3gI4wkLC6PIL6XmotmQ VjBVguFnDbKqVvSpR8wCablsn1WGbsNZ2sRVdewpvoFZEyWlr+LPweSUJwHSQcXcaLLYYsqZ2qnlM2yt OkTEgvwFXgZt1pq1m1ZrvzMr3bIf5qHCj5NaSaAuCs GEUaGc7kqP27IGjrkqTsFp4SHySgZQD1M1RpQciZBHM+BIusPCmivLl4uFCaGSGsRq4VDTBqJBQjAVSd ICAgICAgICAgICAgICAgICAgICAgICAgICAgICAgICAgICAgICAgICAgICAgICAgICAgICAgICAgICAg ICAgICAgICAgICAgICAgICAgICAgICAgICAgICAgIA 0KICAgICAgICAgICAgICAgICAgICAgICAgICAgICAgICAgICAgICAgICAgICAgICAgICAgICAgICAgIC VxRPVgWQWrUNLjMMKxDCOjHWUuNBRjJOVnANXkVFYcSQZfLLPgINSyKW8AIPTtNYTbCVCdMVDfIRTmHH AgICAgICAgICAgICAgICAgICAgICAgICAgICAgICAg JHHtKOKcQYUcMZDaGROgUHTjDDOnMKCcCRKcKLRoPEJiUZLlLVKnTRCnZEWdZSYkSFPuKM6RTLHpBDCv ICAgICAgICAgICAgICAgICAgICAgICAgICAgICAgICAgICAgICAgICAgICAgICAgICAgICAgICAgICAg ICAgICAgICAgICAgICAgICAgICAgICAgICAgICAgIC QuBM7OXBRuOGVfVRKxSJSsMACuSYKiVBEpKXMeANZiJUWcXMQqXHTmLAKfZXZyVZDlEAGvOEWsCZDsDT WiKSFpPSCxMFHvXQPpJGKxZARfTOIlWNZzMYTiVMFkMWKmSIDmJRNaJFXxJU3QTAZbGCJgCWFvFBIkRJ AgICAgICAgICAgICAgICAgICAgICAgICAgICAgICAg QHMqGYYgXJRtFOXbFLAdYKXvTCJuMLWvCXBmBZGyJPDjJTWoOIMpAYZrWHYsHNXkHAEnJGXkIB9ARDVi ICAgICAgICAgICAgICAgICAgICAgICAgICAgICAgICAgICAgICAgICAgICAgICAgICAgICAgICAgICAg ICAgICAgICAgICAgICAgICAgICAgICAgICAgICAgIC BeXJLcYA2KLVDzTRNlWMTgRQXkXNZrNOAvGOXsKXMfHXAeEBRgTUEwJYQqMIYtOGAgMTFmDJJrETZtKK GzIZJeQBXfBIKwSGUrDBWkTURxVFQaYSKeKAYfDLQaKSHqKYVuDCEjXYDcEBOiPV4WJLWkCKZdLEBgOQ AgICAgICAgICAgICAgICAgICAgICAgICAgICAgICAg NEGkCFRlRKZeQFUfMYVzQPMvXQLnQOSdIJUqUCXnMDZcRWKdBNItUQHoPSOqNMAkLURiJCWxPIMbQS3N ICAgICAgICAgICAgICAgICAgICAgICAgICAgICAgICAgICAgICAgICAgICAgICAgICAgICAgICAgICAg ICAgICAgICAgICAgICAgICAgICAgICAgICAgICAgIC DfDTXwWPRcZQ2VPC05mPVmw3C6YWFyLP6ywrh/Un1KEQrpknIglVTsUU9BVwBcMH7meg3KYnMzYT8gwe 8UVJnXSbJaV6B7eEUgHKOaTPGMGiPpH79tCZmjIz29UKmzGJSyKqChWBa4Pp9JOoUoS3ydKABdIqV2XV OwTlS5EEJrExHiMIPsOLXyEG4EGRBuM970fwYnCs4P Sy6CNbHzYR5sbx5TXfrgZHYqRfzTZyd8QRtrFF2QpYWojTDqWXWrPVALLmUtZ2pdn1YpTwcyEPDIRFla NM6Qc2QsfCZwFOi+Hl5QEJ6ji8QxAOzjSGUwPP0bab2ARLtDWwLaT2ScjChcZGHhu9knAYJgEM5tgUAj HXY1TQEwIKgbrrAfpiUWYO0uo3whRRUaT3raChimNA EwNDHmRq0mQo1oZDSgPRL7JsL9HJZICV8KLRSoSQRuzHKgSWVxEDLTJL0GSRwjSZJ3WBNojiWmjYEcIA ksJW3JKDHziwEuHtkkZBRWIYn+Ij0SOV6tu3CqSBh6ONWdq4XvGIv4XU6DSMMxFKivKJWxRR8cm0UgM3 P1ZgH6fLUdD0eyyzasQ9IeljWpncQyQEDdJLLwLQ0E FS7KKI2LNVJtDAdgLD9UXHV2DVb5DbS0ADNxQVDsHQBjVR0zZBveRD5SDOe3E1BkC7EOCFRjRLQXDANe iEW7KBCMHp8CW4LEEpuZCLEAOq3OSnTyS7ZPK2aMI24FWU0KWQJ+PiANCj4+LOsuirVrBopHVxA5DYSx a5IoPBj3SD4CUHFpGJbuVM1DCZSutW0oHRfmOI1UGj JlLNDuYOOYXqLvO04cdMNoLZz7V7RcNfFrVENwToylJBMeJUzpYnHhWSOrPwXrMUylXJ2+ID4+DQogIC 2VMGtcrbBtJTClXz2FYAAmJJGmAP9cMZLeQJXmC6M8bYkbQGCVPaKsQ3cngqqeIF7gGITmI717cMppns UjLZZ2QFMcOo9ROXVdGKW7WMJmsXJfTqGxXAXATQtv HH3NkRJeAWG3xM5bUNuxRVFpQEUpX0dNUpZmgZmtWH00lKdorpRdyXTcVPx+Qq0OIG4oy9FpWXn7qfCs ZSevKPBeHHisCVCkWNOrSOIyKZH9SKB6DJTUJjZeOMScSITcUQpeKUKbGAXzht9MOGPzBWVuUXdvGRCq VMIjAJSnOZdpCFSxDWB9FUm4NIQbXEXvPZ7QRlEiTP LvRYBfFFpxBBSdRGPbap1GKMEcKFStFnFgNPMeGLPpRHMoVYgbNKGlCAP8SEE0UUCyHPSoVS5IDaOqFE AlIVU4PhTgXUEpKLTrqh3ZNZSoZXDnDgXfWHZtDOEqPOLaAIxaRHWsKQV6YYH4BVFkVKZbTF1QQxIxRK XgKEzyRSWbBDSsLMMmgq2VRRTkWQTuFBO7QWQkYCLf KLUzMUipBZNqEISsJiB9DCDnYHSnOR4PKwKcLBFrEQV9AXNfMHDaIVBmje2ZQDPfECFxMCT0AKAmUSUe DZVjKPshRFXbOLLmOmQ1NMNpPVUwPX5CDwWyQYGpNTW6GRvhWZQqKNSyua7GVHVmHJFiFhG5FbJjIKYg YUXzQMssJDLqPZEwAOe8PUAbVIFwZM8LIkAiAPJjTb J6BPErMIEoVRDcbc8XPNHkXHUqKGWcERRzDUIxIEGfZGmuFGGmVSM4YaLbBUKnNKAlNO3DVlUaHFAqXd B3ZKgvIEWbQOSeiq5RGVJkLLLqPON3RHTlKDSiMNAiDJmjZFXqVQE7JQV5KHLlVWTqBD2GFsLtSLIaUz D8CWndBMSaQYChyf1PCCLxZUGeKkRxWTGiMPHyTVSa IBsbCYOhZCY2CRa0SXApWJTnAP3VFzNnMTGyUuc8NTYaKJRoSZGfka1KTVVcMRVkZmo8JXAiTXZvIXDv ZCl5lkEbbZFcLPw0FG1JK6FogmUnSqWVIg5Fd644CUU9ZCPmZb0NO4sjOn9nPKUpIDBDHx3ONKt1BAL5 TXbbGOU7CcEaKRU2Ite0ArEcAawbUEqcDTB8Nty+ID lbUwm7NDWwVxSmXgM2MQBuHaUzK6OmZDRbUGFzPabiIm9oFQGPBo2+ZPxrhAMgrRhbUPXXBiZ2UfU8FP mqURTELr0E ID Date Data Source [id number] 01/07/2020 08:39:41 AM EDT [facility] Name Value Range Interpretation Code Description Data Fide rce(s) Supporting Document(s) Progress Note [facility] QFRHDp9vNsBHBhEm97/NWDvgTUOhr8DeXPnzHDv2LMbjTPQcK8BcVMC8nZ4qHBF9NPuOJhLeAsGqWcLk lbm [file] AgICAgICAgICAgICAgICAgICAgICAgICAgICAgICAgICAgICAgICAgICAgICAgICAgDQogICAgICAgIC AgICAgICAgICAgICAgICAgICAgICAgICAgICAgICAg ICAgICAgICAgICAgICAgICAgICAgICAgICAgICAgICAgICAgICAgICAgICAgICAgICAgICAgICAgICAg DQogICAgICAgICAgICAgICAgICAgICAgICAgICAgICAgICAgICAgICAgICAgICAgICAgICAgICAgICAg ICAgICAgICAgICAgICAgICAgICAgICAgICAgICAgIC AgICAgICAgICAgDQogICAgICAgICAgICAgICAgICAgICAgICAgICAgICAgICAgICAgICAgICAgICAgIC AgICAgICAgICAgICAgICAgICAgICAgICAgICAgICAgICAgICAgICAgICAgICAgICAgICAgDQogICAgIC AgICAgICAgICAgICAgICAgICAgICAgICAgICAgICAg ICAgICAgICAgICAgICAgICAgICAgICAgICAgICAgICAgICAgICAgICAgICAgICAgICAgICAgICAgICAg ICAgDQogICAgICAgICAgICAgICAgICAgICAgICAgICAgICAgICAgICAgICAgICAgICAgICAgICAgICAg ICAgICAgICAgICAgICAgICAgICAgICAgICAgICAgIC AgICAgICAgICAgICAgDQogICAgICAgICAgICAgICAgICAgICAgICAgICAgICAgICAgICAgICAgICAgIC AgICAgICAgICAgICAgICAgICAgICAgICAgICAgICAgICAgICAgICAgICAgICAgICAgICAgICAgDQogIC AgICAgICAgICAgICAgICAgICAgICAgICAgICAgICAg ICAgICAgICAgICAgICAgICAgICAgICAgICAgICAgICAgICAgICAgICAgICAgICAgICAgICAgICAgICAg ICAgICAgDQogICAgICAgICAgICAgICAgICAgICAgICAgICAgICAgICAgICAgICAgICAgICAgICAgICAg ICAgICAgICAgICAgICAgICAgICAgICAgICAgICAgIC AgICAgICAgICAgICAgICAgDQogICAgICAgICAgICAgICAgICAgICAgICAgICAgICAgICAgICAgICAgIC AgICAgICAgICAgICAgICAgICAgICAgICAgICAgICAgICAgICAgICAgICAgICAgICAgICAgICAgICAgDQ p5A2yuEYJuEWUtZB1hHAp3Wj0+DEsPWiWoDHE6maAq pC5QUI4nr4QlCLhpTICin1OlLWu0ZF0VIQBrKZnePW7YKXuimg7BUZHbUZPmvKCLb9jrEyTqXNR4BJMx PcthFM3HBRJvX6ikmhNkVSQiGOFHYB3YYnYdH4IqiA03LFQGAi7+XRzffmEsVfbIBhX7CRUdu8XzNCd4 IZ2YJTYuBckzs1VdVlAaIMRHSKznXG2OOES2YNDeOI TuGp3WSRYtQ024oeSiWC4TWm0VKhGsIG7pfu2WSbNzOMVrCwmAOjn4AWsfHO4LxUEoFGnFex6bhnZfnn EJt0PtzeRauIHScJY6RF4xTUSuCkFcWEUox7U4sGLcZBQrUT4FZTG7HJCaMwfuGtLzLTNaKPwhCHKWIX lIPrApH8Vkw1BdZqP3NRRySvMkKSemGOWoMCutRD68 xTtdNL1BNPAbADXxGD89ILU9GTYdQa5FNc3KPdYwKN4kwz9DEsWjTZYpNnuDCmq6KPigHH6BeUHjH0Jp tQEqh9bJClWeF6KENDI2WGSoSh1ZKHEgEbEvJCHhZVikYX2eQHIsZMVNbWhragC5XV9KCP2nosToKW4N TfEhYg8pGz3OIbXrS3BsA1PiWURrSKBJHOfeTF0YDR klYU6eNN1Sg9CTuIMglX4tev2UQGJjUAHxMmdxrw3NWuewA6U0rIswFQOnIHllKPJJQGdjKM1KERVhIW F2YUKpFYGwYBTLYvDzW14xOL1PC0Nip52eBtL0MISuNgJqVTmkWM15cAzhhkHrlXQanEdrKG3ZLb4+DQ plbmRvYmoNCnhyZWYNCjAgMjINCjAwMDAwMDAwMDAg YmC7HcUmJz8KPLQrNQCvGYPiAoXpDUAzRBVfZVrbICHjCSW8Wvx3GHFkDLLnWV8HJtLlGFGgZGv6YBIm CBJtWROjpp7NZIOqJVBvVOC0LnBmFRUzULWuZBxpTYTzCGCfTHBtXOBnJMVtQW6ZSrXfBWXpZVB2JLMw QIUtEZCeal5ZPTXdYPPtXeM3RJVqCSRnMJQkVDsqYU CbNLHmTZdtBYKxSMYzVH7HGgWwONYtNGHaASAyJQLlRVSleo3GMTUhUGZtBKWzDVHbSMMbWPHkVNdkLC EmVBY3GdHcFNKcFRJeFA6XCsBpNCOoVRLzVXctWZUlSQCusp4MKGDnTHAjHdv6IvHnKBTzFXNwTVkrBZ PvGZH6FVC9UDEqYTFjAW4XVqGzQGMpFZkbZzakNTLf TFZxuj1SWGGuHJYcNgZyXnFaDBVmYQWiRFiyHBXmITN0OjEcHKLoAIWkJW0BSjEvMJZmBQmjRzOvOINp ZCOtqu7RYMJsMWLrCZZjLMEnPRZeNENrZAfrGZKnNLU2XQucKZMxEEOwRR6SVyDiWHGfKSf5XuHhBYPs LDQhkm7XxCCrdDhdbf9ELHkHXb7VeSgmQSIyVKhnNr 5mgCBqPWPlZVWLAp7EaxGySNQbZISKJUedCTOcSJtnWvcgRaTcGMmhQKM8NqJkMSKoGLFiUTOtIam1Ld ipIwF3AAGgZQXfM1OhXQH7CTWiRiY6FDN3KmI0TdW0WFU3CUE+YU1eDIt+Vz2Yj7ZehoE5duYwLJorNQ v4JO4XNBZVI0PDGj== ID Date Data Source [id number] 01/07/2020 08:38:41 AM EDT [facility] Name Value Range Interpretation Code Description Data Fide rce(s) Supporting Document(s) Consultation [facility] IKBNZd1tVgUAOoPn15/GYHdeHQVax1PaGXvgGSb7UUfaNOPjC5XnAVZ3iG7pCBF8JJoNCqGoHaTfEkUp lbm [file] graff+U6+/9N2/J+2y3/dyM0K6yD0f/Rcbkb7xBrComRL+XwYoPiiZzI6GQDfYgB9Z/sd3M/QIOesu6ejRM Snqeq+Yl2a8/xLRusOUL3qtY6uzdCdJJu3PZM2Mkoj5ZU830bo6j4MK1jy1W2a4/b6HO/HnOffL65NhZ 7qKsEunq7UJ+qJzCu3qvqtP0E0a53+o1ivW6nrMB9v 1K1xbFZS+br1W+Gq1QUN2k+E12PXDRpjEnu4KVw6gV8xj7PS3rG1yChK9+SM8zHYk9zxkaQ2pkR40B63 rhgaYGs3cDfe4rW+erv7SQaxgoyOnt4F5VKnuh6UtkcImUf9wXjR2uIgp1XIilcbC16xb1N4S2o5Ww+B 7ceTlwfrkZwt05s/hu/EXMlYXzuAg7tFoK61im4v69 dT+0uzoMc/IJ+6+7J8izlTplJvO4gNXJchqCYwGvWCB6B8w5AerVTPibSBAE8aWFXzPT14dXlPayl0Mc 7a9gPx7T3PfLKAhKtQ50asKu+FfvIT+AFNh/1BWAHzpnBcUr8miNHeqq57zeawO7hcM1zoiZlsa0Qk7W zzt4sAYX0ht3anomEtiQcZvWM+MdLtstfvvK/A/sort worker [file] ICAgICAgICAgICAgICAgICAgICAgICAgICAgICAgIC AgICAgICAgICAgICAgICAgICAgICAgICAgICAgICAgICAgICAgICAgICAgICAgICAgICAgICAgICAgDQ ogICAgICAgICAgICAgICAgICAgICAgICAgICAgICAgICAgICAgICAgICAgICAgICAgICAgICAgICAgIC AgICAgICAgICAgICAgICAgICAgICAgICAgICAgICAg ICAgICAgICAgDQogICAgICAgICAgICAgICAgICAgICAgICAgICAgICAgICAgICAgICAgICAgICAgICAg ICAgICAgICAgICAgICAgICAgICAgICAgICAgICAgICAgICAgICAgICAgICAgICAgICAgDQogICAgICAg ICAgICAgICAgICAgICAgICAgICAgICAgICAgICAgIC AgICAgICAgICAgICAgICAgICAgICAgICAgICAgICAgICAgICAgICAgICAgICAgICAgICAgICAgICAgIC AgDQogICAgICAgICAgICAgICAgICAgICAgICAgICAgICAgICAgICAgICAgICAgICAgICAgICAgICAgIC AgICAgICAgICAgICAgICAgICAgICAgICAgICAgICAg ICAgICAgICAgICAgDQogICAgICAgICAgICAgICAgICAgICAgICAgICAgICAgICAgICAgICAgICAgICAg ICAgICAgICAgICAgICAgICAgICAgICAgICAgICAgICAgICAgICAgICAgICAgICAgICAgICAgDQogICAg ICAgICAgICAgICAgICAgICAgICAgICAgICAgICAgIC AgICAgICAgICAgICAgICAgICAgICAgICAgICAgICAgICAgICAgICAgICAgICAgICAgICAgICAgICAgIC AgICAgDQogICAgICAgICAgICAgICAgICAgICAgICAgICAgICAgICAgICAgICAgICAgICAgICAgICAgIC AgICAgICAgICAgICAgICAgICAgICAgICAgICAgICAg ICAgICAgICAgICAgICAgDQogICAgICAgICAgICAgICAgICAgICAgICAgICAgICAgICAgICAgICAgICAg ICAgICAgICAgICAgICAgICAgICAgICAgICAgICAgICAgICAgICAgICAgICAgICAgICAgICAgICAgDQog ICAgICAgICAgICAgICAgICAgICAgICAgICAgICAgIC AgICAgICAgICAgICAgICAgICAgICAgICAgICAgICAgICAgICAgICAgICAgICAgICAgICAgICAgICAgIC IlEPEqBPVgCLg1G0lrQVBcPKXvGA7eREm6Xm6+GFpRCyTlBZJ8rfEhaW9HGN6yp0JkOIhuEDQbi8YjWF u5VS4WGPXcUCzgDZ2QQOrcts0IMORsXWJtnMNMa4vg ZoPsPBV0QVTzNoatEM9EEIPaD0gpbyTtVWCwJGHDAPbxTHKGJYqmGMYSYMWsHTXdHxBzQiRuIKAkPL5V LOSmW910mzZuOH7CFo3HAaAwAB5hqh4LLlaiDEEoQktEAak0JPsdPR3HlFMsuKSmPOIbQPVLIiPwS5pz u3VnCvzgNYZOGPveDN1Iw2AwhDVdXUx+Hc8XYF4zb2 MmYFkwEBAeRB5oew0HESfWQkFkC7VedPjvNVZhgcI6gJEyJQB8MPKxMAjdqwHnvwPQYL5kc5auJWCtB9 irNbwiGNRgDLQxZo8mUc2qASJeBKA0UyZlMYDMHE6BBHKxDHEjdNKkCZSeSKYGCE3YRVntPPJ6TKVeda UmtVLiMGjmPW3KWENvllUoBlamWYIANPx+Tb1PKD4w d3JyEPcmBOXnMF4swf8SUJdGKqAsB6P0wSLdP2L0JBgwSr8WUXOoFTIxZsQkLIYHCAdkQE5BTU6druN3 LZ6KgGZhHYMsVWVslJAjNCa0R86eqCDwZLeuVY5PJEA+Gerardo+Bg1SCIAfAPMjPLCuJaPoBTXGEwGqR4Qi N1FHy6QjP6RiOV20nJvnysYcHAdiAE4UVC5zSHOdEZ LNQI4TaIEifE9mkzUaXbExEYNXOkFqB82mgLNbTYUaLPQ5FBAxKr7GEWVxY2TmuqEpmZtpegUeTBNqUH ELTJ0CQOyhhjCeiVPiiLawHA53xGpaYZ3ZWm0REfPgMA5sys6OoMNmKz5JVZNaZR6MRKJgFRXhVZRxZJ Z5IYKiYmWeMQfyNDVtROApVSO6BRAlQZGhUJ6WJoWl PCNfPyN5ELCcNFSrCHRvgr6AFDTuNSIoKSXlWNWjGMQhGNRhCLapAUCaOWAoNDB1ZPDjGONzFK6ENqUs QBClRXYdPaDcHMXkUGOuqn7NOKFnSXKaLSZoPGNkUQBhSPHtNIysUHLrIHB5DbIfJXMjJKWkWO0WGtOc FGZcNPq1BDLoLZItYRPeja7IFMMvEPLfERqvRjLvZR NcFMStCQhzSXJmEIDfWGG9FIFvZYDuPS6DUyKuBPVkTRT4YMdcESOmLIJucj6OPIOxBKNqZLY7JmCzPB BfPJAbYLauJBCgWAN9ZPh9QEOtIOJcSX8FTvQxPTOyIPm8EFYrGFSiKLXdlq1ZKUKqZUDnXUC7VWKuHK EqZWNmBQcvBYFiCWA9CIOmVOBfAKNfHE6BLsSlAYAi SfWsXjXqVTKeUWYare7YNQVrMSYdDQn8YcEiMYFuWKTtPIldZGGeLFYvRDh1RLZiZRLqBH0VLaXcOSCs DwGwIqPmSIOaAHWsml6LMZOqFLRvMnn9DHMfJFDtWLUsTWsmISQaKVUvLEu3PJCxDARcZG3LKnSqOMSh GwHgBLQoXILgTZSali1YRCDsLKGdVyWoDYKqRYLjHM YeNAwqAEDtCFYpSteiSDYfDWYuYO0JShQkXGEbSlBsNyYsRKVqOWTvre2CDOFaLENxELYlODVyIOQhBA DgZAxuKBEgVGK0FoO4LGRuLUYsZN7ILdPdMDWnDcG0HWtgQYIgSKKryg9XpKZleCykdd0QJHtPTe8VvQ tiKGXsGEttLm2ujTEcYBScBIQVKo8CktEtHNJwTJSU VVedMPQvJYX7PAq9IqlgZqFkFKLtDDUwHQT6KWZgMqOdGbEvVZEiRsD8IDG1Weg6S6T8FEO2W2N4AVF5 IYVmMVFiFBLaNqD6XDH+JS5oOIz+Xi8Te0ZpfzM2wnTcWSoxEkWfDr2PLHBPJ4MRRq== ID Date Data Source [id number] 01/07/2020 01:43:24 AM EDT [facility] Hospital Name Value Range Interpretation Code Description Data Fide rce(s) Supporting Document(s) Bicarbonate [Moles/volume] in Serum 27 mmol/L 22-29 [facility] Chloride [Moles/volume] in Serum or Plasma 99 mmol/L 98-107 [facility] Creatinine [Mass/volume] in Serum or Plasma 3.79 mg/dL 0.70-1.20 H [facility] Glucose [Mass/volume] in Serum or Plasma 81 mg/dL 70-140 [facility] Potassium [Moles/volume] in Serum or Plasma 4.4 mmol/L 3.4-5.1 [facility] Sodium [Moles/volume] in Serum or Plasma 141 mmol/L 136-145 [facility] Urea nitrogen [Mass/volume] in Serum or Plasma 66 mg/dL 8-23 H [facility] Anion gap 3 in Serum or Plasma 15 mmol/L 8-15 [facility] Osmolality of Serum or Plasma by calculation 310 mosm/kg 275-300 H [facility] Creatinine/Urea nitrogen [Mass Ratio] in Serum or Plasma 17 [facility] Calcium [Mass/volume] in Serum or Plasma 8.8 mg/dL 8.8-10.2 [facility] Glomerular filtration rate/1.73 sq M pre dicted among non-blacks [Volume Rate/Area] in Serum or Plasma by Creatinine-based formula (MDRD) 15 mL/min/1.73m2 >60 L [facility] Glomerular filtration rate/1.73 sq M pre dicted among blacks [Volume Rate/Area] in Serum or Plasma by Creatinine-based formula (MDRD) 18 mL/min/1.73m2 >60 L [facility] ID Date Data Source [id number] 01/07/2020 02:08:10 AM EDT [facility] Hospital Name Value Range Interpretation Code Description Data Fide rce(s) Supporting Document(s) Leukocytes [#/volume] in Blood by Automated count 4.5 10*3/uL 4-10 [facility] Erythrocytes [#/volume] in Blood by Automated count 3.32 10*6/uL 4.6- 6.1 L [facility] Hemoglobin [Mass/volume] in Blood 9.4 g/dL 13.5-18 L [facility] Hematocrit [Volume Fraction] of Blood by Automated count 28.5 % 4 1-53 L [facility] Erythrocyte mean corpuscular volume [Entitic volume] by Auto mated count 85.7 fL 80-96 [facility] Erythrocyte mean corpuscular hemoglobin [Entitic mass] by Automated count 28.3 pg 27-33 [facility] Erythrocyte mean corpuscular hemoglobin concentration [Mass/volume] by Automated count 33.0 g/dL 32.0-36.0 [facility] width [Ratio] by Automated count 17.6 % 11.5-14.5 H [facility] Platelets [#/volume] in Blood by Automated count 132 10*3/uL 150-400 L [facility] Differential cell count method - Blood [facility] Neutrophils/100 leukocytes in Blood by Automated count 82 % [facility] Lymphocytes/100 leukocytes in Blood by Automated count 10 % [facility] Monocytes/100 leukocytes in Blood by Automated count 2 % [facility] Eosinophils/100 leukocytes in Blood by Automated count 2 % [facility] Basophils/100 leukocytes in Blood by Automated count 1 % [facility] Neutrophils [#/volume] in Blood by Automated count 3.69 10*3/uL 1.8-7 .0 [facility] Lymphocytes [#/volume] in Blood by Automated count 0.47 10*3/uL 1.2-4 .0 L [facility] Monocytes [#/volume] in Blood by Automated count 0.09 10*3/uL 0-0.8 [facility] Eosinophils [#/volume] in Blood by Automated count 0.09 10*3/uL 0-0.5 [facility] Basophils [#/volume] in Blood by Automated count 0.04 10*3/uL 0-0.2 [facility] Nucleated erythrocytes/100 leukocytes [Ratio] in Blood by Automated count 1 /100{WBCs} 0-0 H [facility] Variant lymphocytes/100 leukocytes in Blood by Manual count 1 % [facility] Metamyelocytes/100 leukocytes in Blood by Manual count 2 % [facility] Lymphocytes [#/volume] in Blood 0.04 10*3/uL 0 H [facility] Metamyelocytes [#/volume] in Blood by Manual count 0.09 10*3/uL 0-0 H [facility] Macrocytes [Presence] in Blood by Light microscopy [facility] Anisocytosis [Presence] in Blood by Light microscopy [facility] Poikilocytosis [Presence] in Blood by Light microscopy [facility] ID Date Data Source [id number] 01/06/2020 01:58:27 AM EDT [facility] Name Value Range Interpretation Code Description Data Fide rce(s) Supporting Document(s) Bicarbonate [Moles/volume] in Serum 26 mmol/L 22-29 [facility] Chloride [Moles/volume] in Serum or Plasma 98 mmol/L 98-107 [facility] Creatinine [Mass/volume] in Serum or Plasma 4.14 mg/dL 0.70-1.20 H [facility] Glucose [Mass/volume] in Serum or Plasma 147 mg/dL 70-140 H [facility] Potassium [Moles/volume] in Serum or Plasma 4.1 mmol/L 3.4-5.1 [facility] Sodium [Moles/volume] in Serum or Plasma 139 mmol/L 136-145 [facility] Urea nitrogen [Mass/volume] in Serum or Plasma 72 mg/dL 8-23 H [facility] Anion gap 3 in Serum or Plasma 15 mmol/L 8-15 [facility] Osmolality of Serum or Plasma by calculation 313 mosm/kg 275-300 H [facility] Creatinine/Urea nitrogen [Mass Ratio] in Serum or Plasma 17 [facility] Calcium [Mass/volume] in Serum or Plasma 8.3 mg/dL 8.8-10.2 L [facility] Glomerular filtration rate/1.73 sq M pre dicted among non-blacks [Volume Rate/Area] in Serum or Plasma by Creatinine-based formula (MDRD) 14 mL/min/1.73m2 >60 L [facility] Glomerular filtration rate/1.73 sq M pre dicted among blacks [Volume Rate/Area] in Serum or Plasma by Creatinine-based formula (MDRD) 16 mL/min/1.73m2 >60 L [facility] ID Date Data Source [id number] 01/06/2020 02:08:27 AM EDT [facility] Hospital Name Value Range Interpretation Code Description Data Fide rce(s) Supporting Document(s) Leukocytes [#/volume] in Blood by Automated count 4.7 10*3/uL 4-10 [facility] Erythrocytes [#/volume] in Blood by Automated count 3.03 10*6/uL 4.6- 6.1 L [facility] Hemoglobin [Mass/volume] in Blood 8.6 g/dL 13.5-18 L [facility] Hematocrit [Volume Fraction] of Blood by Automated count 26.4 % 4 1-53 L [facility] Erythrocyte mean corpuscular volume [Entitic volume] by Auto mated count 87.1 fL 80-96 [facility] Erythrocyte mean corpuscular hemoglobin [Entitic mass] by Automated count 28.4 pg 27-33 [facility] Erythrocyte mean corpuscular hemoglobin concentration [Mass/volume] by Automated count 32.6 g/dL 32.0-36.0 [facility] width [Ratio] by Automated count 17.8 % 11.5-14.5 H [facility] Platelets [#/volume] in Blood by Automated count 123 10*3/uL 150-400 L [facility] Differential cell count method - Blood [facility] Neutrophils/100 leukocytes in Blood by Automated count 92 % [facility] Lymphocytes/100 leukocytes in Blood by Automated count 5 % [facility] Monocytes/100 leukocytes in Blood by Automated count 3 % [facility] Neutrophils [#/volume] in Blood by Automated count 4.35 10*3/uL 1.8-7 .0 [facility] Lymphocytes [#/volume] in Blood by Automated count 0.22 10*3/uL 1.2-4 .0 L [facility] Monocytes [#/volume] in Blood by Automated count 0.13 10*3/uL 0-0.8 [facility] Macrocytes [Presence] in Blood by Light microscopy [facility] Anisocytosis [Presence] in Blood by Light microscopy [facility] Poikilocytosis [Presence] in Blood by Light microscopy [facility] ID Date Data Source [id number] 01/05/2020 04:14:[address] [facility] Hospital Name Value Range Interpretation Code Description Data Fide rce(s) Supporting Document(s) Bicarbonate [Moles/volume] in Serum 30 mmol/L 22-29 H [facility] Chloride [Moles/volume] in Serum or Plasma 96 mmol/L 98-107 L [facility] Creatinine [Mass/volume] in Serum or Plasma 4.09 mg/dL 0.70-1.20 H [facility] Glucose [Mass/volume] in Serum or Plasma 93 mg/dL 70-140 [facility] Potassium [Moles/volume] in Serum or Plasma 4.1 mmol/L 3.4-5.1 [facility] Sodium [Moles/volume] in Serum or Plasma 137 mmol/L 136-145 [facility] Urea nitrogen [Mass/volume] in Serum or Plasma 80 mg/dL 8-23 H [facility] Anion gap 3 in Serum or Plasma 11 mmol/L 8-15 [facility] Osmolality of Serum or Plasma by calculation 307 mosm/kg 275-300 H [facility] Creatinine/Urea nitrogen [Mass Ratio] in Serum or Plasma 20 [facility] Calcium [Mass/volume] in Serum or Plasma 8.5 mg/dL 8.8-10.2 L [facility] Glomerular filtration rate/1.73 sq M pre dicted among non-blacks [Volume Rate/Area] in Serum or Plasma by Creatinine-based formula (MDRD) 14 mL/min/1.73m2 >60 L [facility] Glomerular filtration rate/1.73 sq M pre dicted among blacks [Volume Rate/Area] in Serum or Plasma by Creatinine-based formula (MDRD) 16 mL/min/1.73m2 >60 L [facility] ID Date Data Source [id number] 01/05/2020 04:52:[address] [facility] Hospital Name Value Range Interpretation Code Description Data Fide rce(s) Supporting Document(s) Leukocytes [#/volume] in Blood by Automated count 4.7 10*3/uL 4-10 [facility] Erythrocytes [#/volume] in Blood by Automated count 3.10 10*6/uL 4.6- 6.1 L [facility] Hemoglobin [Mass/volume] in Blood 8.9 g/dL 13.5-18 L [facility] Hematocrit [Volume Fraction] of Blood by Automated count 27.0 % 4 1-53 L [facility] Erythrocyte mean corpuscular volume [Entitic volume] by Auto mated count 87.1 fL 80-96 [facility] Erythrocyte mean corpuscular hemoglobin [Entitic mass] by Automated count 28.7 pg 27-33 [facility] Erythrocyte mean corpuscular hemoglobin concentration [Mass/volume] by Automated count 32.9 g/dL 32.0-36.0 [facility] al Erythrocyte distribution width [Ratio] by Automated count 18.3 % 11.5-14.5 H [facility] Platelets [#/volume] in Blood by Automated count 131 10*3/uL 150-400 L [facility] Differential cell count method - Blood [facility] Neutrophils/100 leukocytes in Blood by Automated count 89 % [facility] Lymphocytes/100 leukocytes in Blood by Automated count 10 % [facility] Eosinophils/100 leukocytes in Blood by Automated count 1 % [facility] Neutrophils [#/volume] in Blood by Automated count 4.17 10*3/uL 1.8-7 .0 [facility] Lymphocytes [#/volume] in Blood by Automated count 0.48 10*3/uL 1.2-4 .0 L [facility] Eosinophils [#/volume] in Blood by Automated count 0.04 10*3/uL 0-0.5 [facility] Macrocytes [Presence] in Blood by [facility] Anisocytosis [Presence] in Blood by [facility] Elliptocytes [Presence] in Blood by [facility] Poikilocytosis [Presence] in Blood by [facility] Polychromasia [Presence] in Blood by [facility] Stomatocytes [Presence] in Blood by [facility] Schistocytes [Presence] in Blood by [facility] Confirmed by [id number] ID Date Data Source [id number] 01/04/2020 07:45:33 PM EDT [facility] Name Value Range Interpretation Code Description Data Fide rce(s) Supporting Document(s) Color of Urine [facility] Clarity of Urine [facility] Specific gravity of Urine by Refractometry automated 1.002 1.003 -1.030 L [facility] pH of Urine by Automated test strip 7.0 5.0-8.0 [facility] Protein [Mass/volume] in Urine by Automated test strip Neg ative [facility] Glucose [Mass/volume] in Urine by Automated test strip Neg [facility] Ketones [Mass/volume] in Urine by Automated test strip Neg [facility] Bilirubin.total [Presence] in Urine by Automated test strip Negative [facility] Hemoglobin [Presence] in Urine by Automated test strip Neg [facility] Leukocyte esterase [Presence] in Urine by Automated test strip Negative [facility] Nitrite [Presence] in Urine by Automated test strip Negati [facility] Leukocytes [#/area] in Urine sediment by Automated count 1 /HPF 0 -5 [facility] Erythrocytes [#/area] in Urine sediment by Automated count 1 /HPF 0-3 [facility] Service comment [facility] WBC Cast 1 /LPF None A [facility] ospital ID Date Data Source [id number] 01/04/2020 06:28:22 PM EDT [facility] Name Value Range Interpretation Code Description Data Fide rce(s) Supporting Document(s) History and Physical [facility] SVTOFk7bCzSLDeUf63/USTscTEHet0PeHFcoCLu9RBoeVFQgU8ArGXM4aO8oUIA7TKvTZuRpHmLcKvD6 lbm [file] CiAgICAgICAgICAgICAgICAgICAgICAgICAgICAgICAgICAgICAgICAgICAgICAgICAgICAgICAgICAg ICAgICAgICAgICAgICAgICAgICAgICAgICAgICAgICAgICAgICAgICANCiAgICAgICAgICAgICAgICAg ICAgICAgICAgICAgICAgICAgICAgICAgICAgICAgIC AgICAgICAgICAgICAgICAgICAgICAgICAgICAgICAgICAgICAgICAgICAgICAgICAgICANCiAgICAgIC AgICAgICAgICAgICAgICAgICAgICAgICAgICAgICAgICAgICAgICAgICAgICAgICAgICAgICAgICAgIC AgICAgICAgICAgICAgICAgICAgICAgICAgICAgICAg ICANCiAgICAgICAgICAgICAgICAgICAgICAgICAgICAgICAgICAgICAgICAgICAgICAgICAgICAgICAg ICAgICAgICAgICAgICAgICAgICAgICAgICAgICAgICAgICAgICAgICAgICANCiAgICAgICAgICAgICAg ICAgICAgICAgICAgICAgICAgICAgICAgICAgICAgIC AgICAgICAgICAgICAgICAgICAgICAgICAgICAgICAgICAgICAgICAgICAgICAgICAgICAgICANCiAgIC AgICAgICAgICAgICAgICAgICAgICAgICAgICAgICAgICAgICAgICAgICAgICAgICAgICAgICAgICAgIC AgICAgICAgICAgICAgICAgICAgICAgICAgICAgICAg ICAgICANCiAgICAgICAgICAgICAgICAgICAgICAgICAgICAgICAgICAgICAgICAgICAgICAgICAgICAg ICAgICAgICAgICAgICAgICAgICAgICAgICAgICAgICAgICAgICAgICAgICAgICANCiAgICAgICAgICAg ICAgICAgICAgICAgICAgICAgICAgICAgICAgICAgIC AgICAgICAgICAgICAgICAgICAgICAgICAgICAgICAgICAgICAgICAgICAgICAgICAgICAgICAgICANCi AgICAgICAgICAgICAgICAgICAgICAgICAgICAgICAgICAgICAgICAgICAgICAgICAgICAgICAgICAgIC AgICAgICAgICAgICAgICAgICAgICAgICAgICAgICAg ICAgICAgICANCiAgICAgICAgICAgICAgICAgICAgICAgICAgICAgICAgICAgICAgICAgICAgICAgICAg ICAgICAgICAgICAgICAgICAgICAgICAgICAgICAgICAgICAgICAgICAgICAgICAgICANCjw/xZYtG1qf vHYdeeU1P4ruCe5XOw5ORM5bw1IwUSDzGFkmcbJnEm yAOlHgBSRwBckSOgn7BUphXZ2SrZOcY5YkJ5BjWEetDX1GJANhCUMqeVCvOBSrWKIfUgN7XGEtBTbkUT 6KdAGuGJoaKJAoCEZzZH9TUSXsA802tkGzUR3EXg8RLtYcAZ8rus7QVmHfZIMmBswDSen8SAncKZ2EuU RmkDCvGUMiDGRFTjClH6urb4KfKsMlDTVIMNizWM0E q9SdkKOgHSv+Gh5LJF1rm5CwMUseTEDkXT9zxs3DKNsUFhWnW9VkiItsKEceGRExdXKWJRQkGF9wAZvp htEnVI6cOH7ERwDzXRDnIe6yVq7dNEIiSVHtYoHsYLIXQI9TIRLfNUCgzZHuKLSbBHJRLB2NWBndKSB5 BTLrocAmkYCpCYrlXZ1KSDOptsXbBdUuRXNKZNv+Pg 2OBB1hr5LkFNpxAfHfLI1emy8JCQkNNcPcU9B0uRHnM5K3LAhbLe6DIESgQCYfUOkbXMTJEBmnSI4YHV 5tyhK3CY6PzCIdPSOgNCBqlVOlETb9E65eqHUcEVpzEG9HIJH+Gerardo+Pk6AGVCcPIGpQCRdGjBtVADCZw SiD2GmE2XXq0ZjY2KmEI59jMnhvqYlTQxoCW8QIL0l OEQwKISUJG7UfDVciH0slrQhDKRlQKODKcLfD10pgKKzBQSfRPD4UHLpCk3ZJVSeZ5FmejZwbVdlulKv ZYXjAOKUUL5FVSzodgBhkWNctYisOY87mVoiYR4AYr6WLdAiYC3ell9KdHHcUn5NQMKeKd1FWAXdAVMl VMEoCQQ8DPQhYyHpFPjwIBCvJHZyTKN5YUQqGMBmTQ 1EEwMvXTOaBUzdLYApWYPzTXGxxl7KRRJvAIEhKXa7XSXlPAQzYBErOMvpTZJgDPPbQVP8TWYkZKSnLU 7ZJoCiYMEiBND4XUWwOUIqOBPsqq1EAOXqDYDzPtN4QRDmIXMxJKCyPLfnMGIwJZDePnQ5LJQiCRRtYG 9PGtSrZMWxZTA6QWZwEAMqUBWmcm3GTDOwJSEnTUJd YMZiXPHiZGFePSvbKGHhCRX8EFv0KVRwUKKeQK9WNwEyAQVjQEOpJVBqPMMzLWXlox6BXYDdJQMqUHN5 JrOtTHQoSAWwVXcsJQQsDAF2CzK0BIEeUQEhFS7EBrKkPNVxUED8UdCvJDNiOSQlan9HTRZgKCXuLdto XqAhUHPgVPTcJUudTGBuKXS6IwM5QGEyBNCrOE8HRb PhYJZeLVk6XqZrLFGuQUOrce2YUAOlTPUfNNC1HRSiHTBhCASvVDvvRSUrFFC5EPXpWYJeOMKvTR8VMf UjLUSpEGj2GYdaBCHbXRFgab3DRMFiIUMkGICkRADuNIKvCUWfGUgaABNlIYUhZUGwLKGbZRYjFD5SZt CpVKluXQHUPwz4IXeeY7j5AGJvQg0CS1Sbt1StGfSc SNHZWQbsHU0uyjKeNZYxQj4RI9tGOgo9EyP6ICMkXPE5DzW5ZNJ8IGE3YBF5JBWaBdL0Q9SbHP3gWBNw BcZ9IjLuUFh8JJO4GDHhVDppDJtcEONdBiDgUVEfLkFgPG5MEr0QCoP3NTP3pLRvFc6UCRA8SFXFDhOv OX2GKRp= ID Date Data Source [id number] 01/05/2020 10:05:30 AM EDT [facility] Name Value Range Interpretation Code Description Data Fide rce(s) Supporting Document(s) Tacrolimus [Mass/volume] in Blood 2.7 ng/mL [facility] Renal Transplant Target ValuesImmediate post-transplant: 10 - 15 ng/mL First 6 months: 6 - 15 ng/mL Greater than 6 months: 6 - 15 ng/mL ID Date Data Source [id number] [facility] Interpretation Code Description Data Fide rce(s) Supporting Document(s) Leukocytes [#/volume] in Blood by Automated count 5.5 10*3/uL 4-10 [facility] Erythrocytes [#/volume] in Blood by Automated count 3.50 10*6/uL 4.6- 6.1 L [facility] Hemoglobin [Mass/volume] in Blood 10.0 g/dL 13.5-18 L [facility] Hematocrit [Volume Fraction] of Blood by Automated count 30.6 % 4 1-53 L [facility] Erythrocyte mean corpuscular volume [Entitic volume] by Auto mated count 87.3 fL 80-96 [facility] Erythrocyte mean corpuscular hemoglobin [Entitic mass] by Automated count 28.6 pg 27-33 [facility] Erythrocyte mean corpuscular hemoglobin concentration [Mass/volume] by Automated count 32.8 g/dL 32.0-36.0 [facility] width [Ratio] by Automated count 18.1 % 11.5-14.5 H [facility] Platelets [#/volume] in Blood by Automated count 157 10*3/uL 150-400 [facility] Differential cell count method - Blood [facility] Neutrophils/100 leukocytes in Blood by Automated count 85 % [facility] Lymphocytes/100 leukocytes in Blood by Automated count 10 % [facility] Monocytes/100 leukocytes in Blood by Automated count 5 % [facility] Eosinophils/100 leukocytes in Blood by Automated count 0 % [facility] Basophils/100 leukocytes in Blood by Automated count 0 % [facility] Neutrophils [#/volume] in Blood by Automated count 4.66 10*3/uL 1.8-7 .0 [facility] Lymphocytes [#/volume] in Blood by Automated count 0.55 10*3/uL 1.2-4 .0 L [facility] Monocytes [#/volume] in Blood by Automated count 0.29 10*3/uL 0-0.8 [facility] Eosinophils [#/volume] in Blood by Automated count 0.02 10*3/uL 0-0.5 [facility] Basophils [#/volume] in Blood by Automated count 0.01 10*3/uL 0-0.2 [facility] Nucleated erythrocytes/100 leukocytes [Ratio] in Blood by Automated count 0 /100{WBCs} 0-0 [facility] ID Date Data Source [id number] 01/04/2020 06:16:06 PM EDT [facility] Name Value Range Interpretation Code Description Data Fide rce(s) Supporting Document(s) Albumin [Mass/volume] in Serum or Plasma by Bromocresol green (BCG) dye binding method 3.8 g/dL 3.5-5.2 [facility] Bilirubin.total [Mass/volume] in Serum or Plasma 0.6 mg/dL <1.2 [facility] Calcium [Mass/volume] in Serum or Plasma 9.1 mg/dL 8.8-10.2 [facility] Chloride [Moles/volume] in Serum or Plasma 96 mmol/L 98-107 L [facility] Creatinine [Mass/volume] in Serum or Plasma 4.23 mg/dL 0.70-1.20 H [facility] Glucose [Mass/volume] in Serum or Plasma 138 mg/dL 70-140 [facility] Alkaline phosphatase [Enzymatic activity/volume] in Serum or Plasma 96 U/L 40-129 [facility] Potassium [Moles/volume] in Serum or Plasma 4.0 mmol/L 3.4-5.1 [facility] Protein [Mass/volume] in Serum or Plasma 6.3 g/dL 6.4-8.3 L [facility] Sodium [Moles/volume] in Serum or Plasma 138 mmol/L 136-145 [facility] Aspartate aminotransferase [Enzymatic activity/volume] in Serum or Plasma 23 U/L <40 [facility] Urea nitrogen [Mass/volume] in Serum or Plasma 86 mg/dL 8-23 H [facility] Osmolality of Serum or Plasma by calculation 315 mosm/kg 275-300 H [facility] Creatinine/Urea nitrogen [Mass Ratio] in Serum or Plasma 20 [facility] Bicarbonate [Moles/volume] in Serum 29 mmol/L 22-29 [facility] Alanine aminotransferase [Enzymatic activity/volume] in Seru m or Plasma 23 U/L <41 [facility] Anion gap 3 in Serum or Plasma 14 mmol/L 8-15 [facility] Albumin/Globulin [Mass Ratio] in Serum or Plasma 1.5 [facility] Glomerular filtration rate/1.73 sq M pre dicted among non-blacks [Volume Rate/Area] in Serum or Plasma by Creatinine-based formula (MDRD) 13 mL/min/1.73m2 >60 L [facility] Glomerular filtration rate/1.73 sq M pre dicted among blacks [Volume Rate/Area] in Serum or Plasma by Creatinine-based formula (MDRD) 15 mL/min/1.73m2 >60 L [facility] ID Date Data Source [id number] 01/04/2020 06:16:06 PM [facility] Name Value Range Interpretation Code Description Data Fide rce(s) Supporting Document(s) Magnesium [Mass/volume] in Serum or Plasma 2.3 mg/dL 1.6-2.4 [facility] ID Date Data Source [id number] 01/04/2020 06:16:06 PM [facility] Value Range Interpretation Code Description Data Fide rce(s) Supporting Document(s) Phosphate [Mass/volume] in Serum or Plasma 4.5 mg/dL 2.5-4.5 [facility] ID Date Data Source [id number] 01/04/2020 05:24:11 PM [facility] Value Range Interpretation Code Description Data Fide rce(s) Supporting Document(s) [facility] QCYXMp5eEoKQBvWd42/GMKpmAADbw8JjWKuiZVc1QAgkZTTbT5FeORA5yP3uADN9ZCdQSuVqEjXmCrN7 [facility] [file] rZJ7j0s9O+insulation worker+UN/ZAGyX6eLQR5ro+gByPtJdpgv5bZyk1CR++y6BNRqVdnCKMJU7ol6lT9OHRn7rQD [file] fjsxyiDeXOhOvFrjbYoKO2/XE9WcL/KGW4SG2/CpTMC9qu+xFEphIyG1Nx+P5JNMy16kQcvMh06v8+[employer]ering [employer]ession[employer] [file] AgICAgICAgICAgICAgICAgICAgICAgICAgICAgICAgICAgICAgICAgICAgICAgICAgICAgICAgICAgIC YcGLJoZUQbCXYuOZ2EMYUsYYDwKAChEAQpTPQiJVGl ICAgICAgICAgICAgICAgICAgICAgICAgICAgICAgICAgICAgICAgICAgICAgICAgICAgICAgICAgICAg COMrPKUiBRWiBGZoCWOfQJCtWUGeDM7DDTNjLPInGBViKLCgQRSpYXQcODQoAZVqFSBwFIIfPSNoJGYz ICAgICAgICAgICAgICAgICAgICAgICAgICAgICAgIC QsHHPmLBBgBAIjIZTcEYPqABAcKKWnCNLxROTiBEXrVL0IUEKzXOCqZEGaEAXtBLMmIOMrVILcGDVhQC AgICAgICAgICAgICAgICAgICAgICAgICAgICAgICAgICAgICAgICAgICAgICAgICAgICAgICAgICAgIC QiUCPwPCJxRSVkROCwKO6JNFNmRKIbRZVqUFVpWHBx ICAgICAgICAgICAgICAgICAgICAgICAgICAgICAgICAgICAgICAgICAgICAgICAgICAgICAgICAgICAg FGZdYUUvHMGfUZVdBLOiPMJnYAIgIDTtEJ4GNVNhJZSwUFSeXHQbMEKxLYQpTZHnHJDpCPUdGYExOIMe ICAgICAgICAgICAgICAgICAgICAgICAgICAgICAgIC LwMFWeWWWuJJJtEKQvZGOeBSYwRUScUFAcGOTjBJQhTAXkQJ5MATDgFNQbBUBnILJuQFVlQLQzOAAmYT AgICAgICAgICAgICAgICAgICAgICAgICAgICAgICAgICAgICAgICAgICAgICAgICAgICAgICAgICAgIC DaDJAzXKJpRZAhWLAuRWQiVH7WRBTxJHLaWDMbXJVo ICAgICAgICAgICAgICAgICAgICAgICAgICAgICAgICAgICAgICAgICAgICAgICAgICAgICAgICAgICAg YVTpXCBxDRNySKQzDYHdHGYiVTBlPLQgBBRgFV4WAVKhOHFdCIPcVGSsRHOiPBCnUTQyKQUpKDBsCTDi ICAgICAgICAgICAgICAgICAgICAgICAgICAgICAgIC HvMGPuFRTeICVsABVbPKQpQXYbDUQrTAHxZJDqHVKhDDPtLQAiXL5WJWMvNILrEUAgYDEfOITkLVIyPG AgICAgICAgICAgICAgICAgICAgICAgICAgICAgICAgICAgICAgICAgICAgICAgICAgICAgICAgICAgIC DyVBUcFILaAXCoTZKqGPOdRIBxVV9GCG74gCZqe0A8 CHNmLK4fzwk/Gh8ACEabbpKteUGjFA4MNzXuWM4itp7URoEfLU4bvz8DHXnNAlGtC4Y1cAHbPGKdSGAO BaYtJ63oAEtdVd72WWkoMPHsHkTkALk5Es9YSkKcG4zdXGFbIxT1RTGgKyR8YPWdQiD4PAZbTlJePBVc BBDdOFZmGRGWOLF3BKEePvBrPoEwDSNnGZrqXRDNCQ SsNVArOzVuIRrpTG2Oo2FlaFH2HDe+Vi9ZCI7sw6EzWUd6NFCbID2ctc5DAMnKAsWhI0UlwcS2TGJoDW FzSn4RVLVnVHJzeZB5QCKtBZUQCyUaH4QzrE63YBDDMm6+BXevrtZbEsmTIbFpFWCbx9WqFXe8JC2UGI BeOJy7wSXwL75th0WqxKMsKynuA3OvOCFhhhigaAyb XMTYTHEnuYQgXmF3NsBzKjRpQCA1HCCkDM8fVLstSY1NHZN4PUozSUFhODKpK6lZEsQrBZBoBVGfcOtg AQ2EVbXeM3ZfmbWyqKH2JQKmCEEPWu7+ONhawgZkWnlEKeEwIXSwj8MzSUy3TD2DYVIcXDlrTX4CMBIy fJ9yVWonDE0SHoQ4VTGxDMLQExOvF20yhOHwSYh0B1 VtYmVkZGVkRmlsZXMgPDwvTmFtZXMgWyBdDQogID4+ID4+OTwfAE8AMSumutHtBCTaIh0FAMNhXNDtFO 2xCHVnHTIxJ3C4cHteFUPBPqErH6umeuqbAV8sBSLcM962hOemgeYoIOQtMRVdDd5SLJBdZGZ7NINgxB WlXCgvYYNMTDeyMN7VuKZsJZF7kQ7cTGvsMXZgEXZg L9wEAlEqqJviLY53eOrmsgXlzOWwMCg+Ph4DCG2kr2EvBEo8qrSeEKjrQUQsRLmlXXAyWVJsGRSmPGJ1 LAV3GOYUEqFyIHBzFCKeSMftJDBuTSIkyx5JQBRqZXHnOEJ8EIUhLWRvVMTuAOmxQOQhXjUqOmTrGJRm RZRxCT4EVgPhFMPrNKQtRXicCUArWROjpy2NFGHfDB JlLyumBAXvHMOnGKSuGXlpPTKkVSAaQCA3QISnVYGtQU8FPoJbKCFzHOKyRjroOGDiAGMnyb1YLVIoMF HvTlK5IkJyEIZgPDXxOAwuDPQyODL4XKE5ZORnGBPwWB6ROoPyUKAfAFy5NHNqHAHfREBzls9EQOHcYD IuEjUdDfXgAIOqUQRvCQtjNFJzDYOeTBE7NOZrUQCu EJ4JElSbVHZxZAY6GcxeIGNmNGAalm1DYCBiIRLuEVk3USQtJVNnUPMkMQzjDRYbJWV4OsP0YBLlDGIa CH0RAfKbPTMyEQd3SELzXLHwRQRqij0VOJVqAOBuRIZ2XSFkJRJkLMPqYHizVZJfSMM7UFTtDGVaLLTz HV7VBsLkPWXdLdV2DbGhWOWiZEAlxu9RJPHoAZHyUb FjKxUpAJYlQNKjAWngXMEkQSZdLvb8FMUxFESgIR5XJmUrRFBmQeM0RXTfGUMuPJVjaa0GXKYoQORmLZ d4PvOqEZIwGRZjSFyjJADoLKU6QVQ5HFTjRUJyDX6ZYrBkSRWfDaDaXbDoFGXjZSKqjx1KASOfUJMeQd D0MQGoOOBeUEOyDFcnIOEfQVK2XvigBNHpRXVoFR5P YoMmOFEaDoK0BKZyXVAcZIEyha2IJJZnRZQvBiz3BoAmJPEyOHQrGHebIWNqEYZ3Oky7TAFxCHTkWA2Y BcGpQDOiUpo1MWRaPWSlIUEjgh3PUZUsRAHdKFmrNhQdZPYwYRUrIJpkXTCwHVA5FJz2YAMmZJVkRJ6Q ZpZnEQEgCpy1YwZiYSKrWMXgfy2MKQGrSCR5IUJjXF HaJDZnYOBsZEltOUEuXQBkREt7NETkYTYvQK1RIrMxYXQcAUR0GjCxXOCrCYHxnf9IQVJtOZK5LdNyTB TqPARtXQZnWTszPSBqRGMdHlL7OXIuKQMjQD3UIxNeFJLnHlPxOyutVGFnRJFchc9FFSTdGUA9FLF1BE DzCENsFABeNMqiIDStMHV4LQO6NONrBPJtMF2VVkPi CCTcTeU2BJHxANWaZUEmuy1ARDOgBMO7EEv2ZEBkNQAjCSTfUSofXSFmTRpyZtlmMHGgUSEvUW6CKxZn ZGDnXetaTYUbSJNfWXKyia1NHCJnMGG4LFF2ZRSvHCBlMDRqYUvrKCBjOtD8AjKzUUNzVTCvXY2VKwCh WHFaZrs7GAVmQRUsVTYajb0EIFQuHKW7VAD6EfFoPW WvTIVcZXkiUKVcQdBtWMY1FUVyKKCaQA0TYhZtLQBiMLF7QZJiNUEgIGVfse0PfQNtfUkqgr5ITUzMGt 1DyHicKYYoPZpoQp7wxLW1KsXyJTJRTe3MfpUvAZBbCUOTDTeuNIBaGGUxP9BnTJH9AxR2RSBwL7E6ND RxBANqTiN7IGT5UGA1RzJ1DnJ6XmTuGdHtLxhcDuKz YjRhNjExZWRmYTkwMDgwMjk+ST2bRTx+Zj8Qs8FmsjP0nmWpEZfdKJA4CfmFZbOdOU7GNDs= ID Date Data Source [id number] 01/04/2020 05:21:01 PM EDT [facility] Name Value Range Interpretation Code Description Data Fide rce(s) Supporting Document(s) Consultation [facility] ZWZTRt7pDnYEEcUu00/RTXndJZLdk1CcJOnwKQu5FTgxNPDcG3CbDJR6nT7aVQD3GVmBVqCiYgWtRqM0 lbm [file] ICAgICAgICAgICAgICAgICAgICAgICAgICAgICAgICAgICAgICAgICAgICAgICAgICAgICAgICAgICAg RXUfQNFxDGMdCQOiZBFwEW4HBITgBVZpKVDoEIWmVTZjDRAqBEOuHVKpBTFcXBYyISUpSCAyOQEjFJOk ICAgICAgICAgICAgICAgICAgICAgICAgICAgICAgIC RpRYWaHEAzJGNhDQTgFWCpDBSuCEJyNZBuDX1SIKDmJHYpMYQxFCOdISZbVVIzLSLxQBSwYJQtVAUmKX AgICAgICAgICAgICAgICAgICAgICAgICAgICAgICAgICAgICAgICAgICAgICAgICAgICAgICAgICAgIC LpZHQjUBKiAN6YUOKsILAtNHXbCCWkZPMyULWiOBZz ICAgICAgICAgICAgICAgICAgICAgICAgICAgICAgICAgICAgICAgICAgICAgICAgICAgICAgICAgICAg UPWiGAUuZMDsPTYxDLFeOMNyUX1AVFTwCINrEJGyEAHgLFNuUUWfIXTjRFMaGDBjHRHiWRUoCUWvGWEv ICAgICAgICAgICAgICAgICAgICAgICAgICAgICAgIC AgZWVnPHEaGBUlFCTnNXAxMDCnMZTlKPKiMZDdOY9GJXOoZKNiBFGsRWYdSSEoYPFsFPQwGJSjKVYlBT AgICAgICAgICAgICAgICAgICAgICAgICAgICAgICAgICAgICAgICAgICAgICAgICAgICAgICAgICAgIC TzNFXjIUVqKISlMO3BKXPoILPrTBAtPGKtNZViVSKo ICAgICAgICAgICAgICAgICAgICAgICAgICAgICAgICAgICAgICAgICAgICAgICAgICAgICAgICAgICAg WVNcZDCqLWFcSXJlHZCgJGQrWCGzGK6GSIKhEUMePCQpIGBvATOeTAFyKFOvOTLcXKGfOLVkYFZsRJLq ICAgICAgICAgICAgICAgICAgICAgICAgICAgICAgIC JjNSAbCTUxYHZdKMZjQSPzFUXjJQMmICSjVGMbAQBmEU7TSOFhQBGyXUGuFUAoMJMwASExVPFhZPHsSW AgICAgICAgICAgICAgICAgICAgICAgICAgICAgICAgICAgICAgICAgICAgICAgICAgICAgICAgICAgIC UoMYCtRNRuJFQfRCCsYF3WFSEpBDVnMGJeZPDzLBOb ICAgICAgICAgICAgICAgICAgICAgICAgICAgICAgICAgICAgICAgICAgICAgICAgICAgICAgICAgICAg BXRdNAYtXWAwEGZxEABvXQYmHYGfCPYlYA8VOG33qKCec9W7ELViQN2gxxe/Dq6JBRyzgsXtqYYkPY9N XeMhOA7lyi5KNgSjDR3kch0MXSoESxOwH9H2jRDwEU UhMMUQFdIuM45pAEdqNk15LXseTROwRkQbCSj5Pa7NGkBbP4xwJDQcYyB5ZEFbYhU0IFDfCpJ5YYQkYj UjWAIeTOBaKHLzHDLXTZ5UByAoQ6QapL45YZORFl8+BRftsyPvOcrGIzPwSWBfl0TzPCz0SY5BJGErPt trh5TpJrZjJNOXKXurFZ1DXMP1YPCxECNmAd3AAHBz O085viZkNW9ZVn0DWcPuVD6rll7LCjKpDUKyZooHTuv4NFrdQF1MtNEeMMpAh16coIa7ekZwjXRPngue mzKJKMldxGdflYclOOHaCMPsXo5tAq2cDQBfPAAvGsT7XAPJHU7SUMDaLXKrpKQdAKZuYDUMFX1IANbq GDE2JDUnzyConGMsCYaaDF5LQLMvrjVzPgHwREFTPI o+Pe4JUE2nd5EuYPftSdXvRE2put9XGKfNAfVmB8L4wZGfT8V2EVdkDt6ZXVYuRSDlIcuxBMJXSLcfAM 9EKE8fasT5YX2DzEAnCKZzSIKdkKCeVAe5P55ftCXqNZrqON7HIPB+Gerardo+Eb3MXGCdDWAwVRZxTiNaPI QRFyUiM0KdL1MAn9VaW7BuHZ76gVtcffBiBIzpMP9J VE8vLUIgBBFYBJ4VjBQhvD4nsfKtAMGwNYFXSjUiB09buDDgYWKlCHZ1NQBpUq3ZQWYfT6DthxTxeSza ugHvGZTvILUIET0HTFdmteAeaUHqeEomNK10rKbbYX1VGh2JPyFoMW2xqg1MgHKeHo6HKRViXf5GTBQi RBUkKFRoISK1HXKtKbMkAEwlNGTbGQCeWNN1QVSoZI QxZR2BPcPkDWSmUSQ9ZWHmPOYrNUPuev0GGQKiCCI3JrT5DYOrDRIpEXCjDKdfXEWgZLTiVLW4YOXuQP IhCL5SMcEgUJPlWEO6OZIwNVLvTXBiig4LTQZlARVnXqm4XZKsXVAfFYKvDPqnHFYmLPL1KXp5EADrYM HfPT0HAhKoGHBiCIKwAYYyCKSiWVCgwt9KQCWqCZVz ULF8EMDgIZNoPHVsXMdhUXYtZIP7YUCxKTRyHOZjRF8PZuLkTBPeMIC0KnZfEMViBCWrqn5OAVOrKNXn Ooz9MJEmMCAjOLBsWNwjEZKtMRO7Odv2QMAgVNRmMJ5XLqFyQZOfNBJ1SOUaRXTmOBMwsr3YTWXzGGJm Kme9QUQaRMJdXJPmNSqqAMUfLZU6RLM7MVSbKNEnLN 2DWwIlINUaCKzoOdShBRKsMBFpxe6XMILyHMKwBBC2TBWjOIWsKLRgAAzpFCAzYXN0VezdEWWoTBTqDO 8TCjIwMBHjKNo3InCgRRExSGYazm7SFPOlOBC4Srq9NkIcFKHyCMLkROpbCKTnQZH4CchcSGFxKXLfLN 6TPuXpZJOnGNx1JXNtQMJlLAZcnl3CWGTqRSN3DJZq RGTgXRSeYFOcDXwoOLYhUYP4FUwkDTIsVNTxCC0HNmNkLLUwTYY4FbLsPYWcFSGwmh6IFAHlLLS7ZMSp BpLhJIFjIFBrWGwdLJIfNLCoCtkvFDKyIMAcOF0NMmKpPDTrCAZoOXheUGQsFHLifa1OREJcUDH5TlQ7 UtHgLRJnBWMxKHffOEXdFVXwLcGcNRGdSVGqCP5ILs CeQQRbVKL5CVEpBGCvTVTtas1WaYGfnJjjuf1YBUrZQm8FtZyjSJHwNVdoGn7rgKZqYkExYIIAVq9Dkj FaZOQqXROHCBfvXVKgEKJqXGUlZgZfTuOcKUL3FotqPuXcLxVqMAGlVZq2UPJcPuX9BqJ7QXB9NUUfZh W0NcU9AlG6KrM8GKPwHIZ7KiP5Z6Q+QU7rHJj+Tf9Cu2JoiuD2fqZuSBm7VwQnLB8BOVPXC9QVYx== ID Date Data Source [id number] 12/22/2019 11:46:00 AM EDT [facility] Name: MOISÉS BISHOP V : 1955 Ag e/Sex: 64M Ordering Provider: Jarrett Waldrop MD Med Rec #: [id number] Reg Status: [facility] REF Room #: Date of Service: 12/21/19 Report Number: [id number] cc:Jarrett Waldrop MD Send Report To: [id number] PET/PET/CT SKULL TO MID THIGH Reason for [...] Jarvis Hammer MD <Electronically signed by Chucky Hammer MD> 12/24/19 0839 Dictation Date/Time: 12/21/19 1547 Transcribed Date/Time: 12/22/19 1146 Teacher Early Childhood Development: SMITH Name Value Range Interpretation Code Description Data Fide rce(s) Supporting Document(s) ID Date Data Source [id number] 12/14/2019 02:36:00 PM EST [facility] ([facility]) Name Value Range Interpretation Code Description Data Fide rce(s) Supporting Document(s) Red Blood Count 3.46 10 4.30-6.10 Below low normal [facility] ([facility]) White Blood Count 5.7 10 4.0-10.0 Normal (applies to non-numeri c results) [facility] ([facility]) Hematocrit 31.0 % 42.0-52.0 Below low normal [facility] ( [facility]) Hemoglobin 9.5 g/dL 13.5-17.5 Below low normal [facility] ( [facility]) Mean Corpuscular Volume 89.6 fl 80.0-96.0 Normal ( applies to non-numeric results) [facility] ([facility]) Mean Corpuscular HGB Conc 30.6 g/dL 32.0-36.5 Below low normal [facility] ([facility]) Red Cell Distribution Width 18.0 % 11.5-14.5 Above high normal [facility] ([facility]) Mean Corpuscular Hemoglobin 27.5 pg 27.0-33.0 Norm al (applies to non-numeric results) [facility] ([facility]) Platelet Count, Automated 195 10 150-450 Normal (applies to non-numeric results) [facility] ([facility]) Nucleated Red Blood Cell % 0.0 % 0-0 Normal (applies to n on-numeric results) [facility] ([facility]) ID Date Data Source [id number] 12/14/2019 07:51:00 AM EST [facility] ([facility] ) Name Value Range Interpretation Code Description Data Fide rce(s) Supporting Document(s) Potassium [Moles/volume] in Serum or Plasma 3.9 meq/L 3.5- 5.1 Normal (applies to non-numeric results) [facility] ID Date Data Source [id number] 10/12/2019 09:26:00 AM EST [facility] Patient: MOISÉS BISHOP V Observation Re port - Phys[facility] [id number] [place] [address] [phone], MRegistration Date/Time: 10/11/2019 13:01 Weight:95.2 kg. Height/Length:73 [...] Value Range Interpretation Code Description Data [facility] Supporting Document(s) ID Date Data Source [id number] 10/11/2019 04:48:00 PM EST [facility] [...] EDT Never used co mpleted Never used [facility] Smoking 07/03/2020 12:00:00 AM EDT Former smoker completed Former smoker [facility] Smoking 04/10/2020 12:00:00 AM EDT Former smoker completed Former smoker [facility] Smoking 03/06/2020 12:00:00 AM EDT Former smoker completed Former smoker [facility] Smoking 02/14/2020 12:00:00 AM EDT Former smoker completed Former smoker [facility] Smoking 02/07/2020 12:00:00 AM EDT Former smoker completed Former smoker [facility] Smoking 01/10/2020 12:00:00 AM EDT Former smoker completed Former smoker [facility] Smoking 01/08/2020 12:00:00 AM EDT Unknown if ever smoked comp leted Unknown if ever smoked [facility] Smoking 01/07/2020 12:00:00 AM EDT Unknown if ever smoked comp leted Unknown if ever smoked [facility] Smoking 01/04/2020 12:00:00 AM EDT Unknown if ever smoked comp leted Unknown if ever smoked [facility] Vital Signs ID Date Data Source UNK Name Value Range Interpretation Code Description Data Source(s) Body mass index (BMI) [Ratio] 25.7 kg/m2 25.7 k g/m2 [facility] ([facility]) Oxygen saturation in Arterial blood by Pulse oximetry 95 % 95 % [facility] ([facility]) Body weight 86.100 kg 86.100 kg [facility] ([facility] Body weight 189.81 [lb_av] 189.81 [lb_av] [facility] Body height 72 [in_i] 72 [in_i] [facility] 6'0" Respiratory rate 17 /min 17 /min [facility] ( [facility]) Body temperature 97.8 [degF] 97.8 [degF] [facility] ([facility]) Heart rate 61 /min 61 /min [facility] ([facility] Diastolic blood pressure 73 mm[Hg] 73 mm[Hg] [facility] ([facility]) Systolic blood pressure 145 mm[Hg] 145 mm[Hg] [facility] ([facility]) Body weight 85.844 kg 85.844 kg [facility]) [place] body weight 184 [lb_av] 184 [lb_av] [facility] ([facility]) Body mass index (BMI) [Ratio] 25.0 kg/m2 25.0 k g/m2 [facility] ([facility]) Body weight 189.25 [lb_av] 189.25 [lb_av] [facility] ([facility]) Body height 73 [in_i] 73 [in_i] [facility] ([facility]) 6'1" Heart rate 54 /min 54 /min [facility] ([facility]) Diastolic blood pressure 78 mm[Hg] 78 mm[Hg] [facility] ([facility]) Systolic blood pressure 136 mm[Hg] 136 mm[Hg] [facility] ([facility]) Body mass index (BMI) [Ratio] 26.9 kg/m2 26.9 k g/m2 [facility] ([facility]) Oxygen saturation in Arterial blood by Pulse oximetry 99 % 99 % [facility] ([facility]) Body weight 90.011 kg 90.011 kg [facility] ([facility] Body weight 198.44 [lb_av] 198.44 [lb_av] [facility] ([facility]) Body height 72 [in_i] 72 [in_i] [facility] [...] Body weight 87.261 kg 87.261 kg [facility] [place] body weight 184 [lb_av] 184 [lb_av] [facility] ([facility]) Body mass index (BMI) [Ratio] 25.4 kg/m2 25.4 k g/m2 [facility] ([facility]) Body weight 192.38 [lb_av] 192.38 [lb_av] [facility] ([facility]) Body height 73 [in_i] 73 [in_i] [facility] 6'1" Diastolic blood pressure 69 mm[Hg] 69 mm[Hg] [facility] ([facility]) Systolic blood pressure 115 mm[Hg] 115 mm[Hg] [facility] ([facility]) Body weight 91.400 kg 91.400 kg [facility] ([facility]) [place] body weight 184 [lb_av] 184 [lb_av] [facility] ([facility]) Body mass index (BMI) [Ratio] 26.6 kg/m2 26.6 k g/m2 [facility] ([facility]) Body weight 201.50 [lb_av] 201.50 [lb_av] [facility] ([facility]) Body height 73 [in_i] 73 [in_i] [facility] ([facility]) 6'1" Diastolic blood pressure 70 mm[Hg] 70 mm[Hg] [facility] ([facility]) Systolic blood pressure 150 mm[Hg] 150 mm[Hg] [facility] ([facility]) Body height 73 [in_i] 73 [in_i] [facility] 6'1" Body weight 95.256 kg 95.256 kg [facility] ([facility]) Body mass index (BMI) [Ratio] 27.7 kg/m2 27.7 k g/m2 [facility] ([facility]) Body weight 210.00 [lb_av] 210.00 [lb_av] [facility] ([facility]) Body weight 97.070 kg 97.070 kg [facility] ([facility]) Body mass index (BMI) [Ratio] 28.2 kg/m2 28.2 k g/m2 [facility] ([facility]) Body weight 214.00 [lb_av] 214.00 [lb_av] [facility] ([facility]) Body height 73 [in_i] 73 [in_i] [facility] ([facility]) 6'1" Body weight 97.070 kg 97.070 kg [facility] ([facility]) Body mass index (BMI) [Ratio] 28.2 kg/m2 28.2 k g/m2 [facility] ([facility]) Body weight 214.00 [lb_av] 214.00 [lb_av] [facility] ([facility]) Body height 73 [in_i] 73 [in_i] [facility] ([facility]) 6'1" ID Date Data Source [id number] 11/20/2020 09:22:35 AM [facility] Name Value Range Interpretation Code Description Data Source(s) WEIGHT RECORDED 192 lb 192 lb [facility] ID Date Data Source [id number] 11/07/2020 02:11:11 AM [facility] Name Value Range Interpretation Code Description Data Source(s) WEIGHT RECORDED 187 lb 187 lb [facility] ID Date Data Source [id number] 10/08/2020 10:05:35 AM [facility] Name Value Range Interpretation Code Description Data Source(s) WEIGHT RECORDED 194 lb 194 lb [facility] ID Date Data Source [id number] 09/08/2020 09:23:28 AM [facility] Name Value Range Interpretation Code Description Data Source(s) WEIGHT RECORDED 195 lb 195 lb [facility] ID Date Data Source [id number] 08/19/2020 02:37:01 AM [facility] Name Value Range Interpretation Code Description Data Source(s) WEIGHT RECORDED 197 lb 197 lb [facility] ID Date Data Source [id number] 07/22/2020 02:01:31 AM EDT [facility] Name Value Range Interpretation Code Description Data Source(s) WEIGHT RECORDED 201.4 lb 201.4 lb [facility] ID Date Data Source [id number] 06/09/2020 08:58:46 AM EDT [facility] Name Value Range Interpretation Code Description Data Source(s) WEIGHT RECORDED 208 lb 208 lb [facility] ID Date Data Source [id number] 05/26/2020 06:55:11 AM EDT [facility] Name Value Range Interpretation Code Description Data Source(s) WEIGHT RECORDED 209 lb 209 lb [facility] ID Date Data Source [id number] 05/05/2020 01:43:20 PM EDT [facility] Name Value Range Interpretation Code Description Data Source(s) WEIGHT RECORDED 207.6 lb 207.6 lb [facility] ID Date Data Source [id number] 03/30/2020 01:55:[address] [facility] Value Range Interpretation Code Description Data Source(s) WEIGHT RECORDED 232 lb 232 lb [facility] ID Date Data Source [id number] 03/14/2020 02:05:51 PM EDT [facility] Name Value Range Interpretation Code Description Data Source(s) WEIGHT RECORDED 226.2 lb 226.2 lb [facility] Body height Measured 72 in 72 in [facility] ID Date Data Source [id number] 03/06/2020 11:26:47 PM EDT [facility] Name Value Range Interpretation Code Description Data Source(s) WEIGHT RECORDED 227.5 lb 227.5 lb [facility] ID Date Data Source [id number] 02/27/2020 03:09:42 AM EDT [facility] Name Value Range Interpretation Code Description Data Source(s) WEIGHT RECORDED 217 lb 217 lb [facility] ID Date Data Source [id number] 02/02/2020 07:04:09 AM EDT [facility] Name Value Range Interpretation Code Description Data Source(s) WEIGHT RECORDED 208 lb 208 lb [facility] ID Date Data Source [id number] [facility] Range Interpretation Code Description Data Source(s) WEIGHT RECORDED 207 lb 207 lb [facility] Body height Measured 72.24 in 72.24 in [facility] Patient Treatment Plan of Care Planned Activity Planned Date Details Description Data Source (s) Prednisone 20 MG Oral Tablet 09/25/2020 12:00:00 AM [facility] 72 HR Fentanyl 0.025 MG/HR Transdermal Patch 08/28/2020 12:00:00 AM [facility] 72 HR Fentanyl 0.025 MG/HR Transdermal Patch 07/31/2020 12:00:00 AM [facility] Hydroxyzine Hydrochloride 10 MG Oral Tablet 07/31/2020 12:00:00 AM [facility] 72 HR Fentanyl 0.025 MG/HR Transdermal Patch 07/03/2020 12:00:00 AM [facility] 72 HR Fentanyl 0.025 MG/HR Transdermal Patch 06/05/2020 12:00:00 AM [facility] Clobetasol Prop Emollient Base 0.05 % External Cream ( Clobetasol Propionate E) 04/10/2020 12:00:00 AM [facility] 72 HR Fentanyl 0.025 MG/HR Transdermal Patch 04/10/2020 12:00:00 AM [facility] 72 HR Fentanyl 0.025 MG/HR Transdermal Patch 03/19/2020 12:00:00 AM [facility] Oxymetazoline hydrochloride 0.5 MG/ML Nasal [place] 03/12/2020 12: 00:00 AM [facility] 72 HR Fentanyl 0.025 MG/HR Transdermal Patch 03/12/2020 12:00:00 AM [facility] Sodium Chloride 0.111 MEQ/ML Nasal Solution 03/12/2020 12:00:00 AM [facility] Oxymetazoline hydrochloride 0.5 MG/ML Nasal [place] 03/12/2020 12: 00:00 AM [facility] Oxymetazoline hydrochloride 0.5 MG/ML Nasal [place] 03/12/2020 12: 00:00 AM [facility] Bisacodyl 10 MG Rectal Suppository 03/11/2020 08:42:23 AM [facility] Oxymetazoline hydrochloride 0.5 MG/ML Nasal [place] 03/11/2020 06: 02:10 AM [facility] Cyclobenzaprine hydrochloride 10 MG Oral Tablet 03/07/2020 01:48:15 AM [facility] 72 HR Fentanyl 0.025 MG/HR Transdermal Patch 03/07/2020 12:00:00 AM [facility] Calcitriol 0.0005 MG Oral Capsule 03/06/2020 12:00:00 AM [facility] Prednisone 10 MG Oral Tablet 03/06/2020 12:00:00 AM [facility] Metoprolol Tartrate 25 MG Oral Tablet 03/05/2020 12:00:00 AM [facility] gabapentin 100 MG Oral Capsule 03/05/2020 12:00:00 AM [facility] alginic acid 200 MG / Calcium Carbonate 80 MG / magnesium trisilicate 20 MG / Sodium Bicarbonate 70 MG Oral Tablet 03/05/2020 12:00:00 AM [facility] Minoxidil 10 MG Oral Tablet 03/05/2020 12:00:00 AM [facility] Cyclobenzaprine hydrochloride 10 MG Oral Tablet 03/05/2020 12:00:00 AM [facility] Acetaminophen 325 MG Oral Tablet 03/05/2020 12:00:00 AM [facility] Cephalexin 250 MG Oral Capsule 03/05/2020 12:00:00 AM [facility] Oxycodone Hydrochloride 5 MG Oral Tablet 03/05/2020 12:00:00 AM [facility] oxyCODONE (ROXICODONE) immediate release tablet 5 mg 020 09:57:08 PM [facility] Cyclobenzaprine hydrochloride 10 MG Oral Tablet 03/02/2020 11:16:42 AM [facility] 120 ACTUAT Albuterol 0.1 MG/ACTUAT / Ipr atropium [place] 0.02 MG/ACTUAT Metered Dose Inhaler 03/01/2020 11:48:40 AM [facility] albuterol (PROVENTIL HFA) inhaler 2 puff 03/01/2020 05:19:35 AM [facility] Acetaminophen 325 MG / Hydrocodone Bitartrate 5 MG Ora l Tablet 01/21/2020 12:00:00 AM [facility] Ondansetron 8 MG Disintegrating Oral Tablet 01/10/2020 12:00:00 AM [facility] Allopurinol 300 MG Oral Tablet 01/08/2020 12:00:00 AM [facility] Prednisone 10 MG Oral Tablet 01/08/2020 12:00:00 AM [facility] Magnesium Oxide 400 MG Oral Tablet 01/07/2020 12:00:00 AM [facility] pantoprazole 40 MG Delayed Release Oral Tablet 01/07/2020 12:00:00 AM [facility] Simvastatin 20 MG Oral Tablet 01/07/2020 12:00:00 AM [facility] Ondansetron 4 MG Oral Tablet 01/07/2020 12:00:00 AM [facility] Acetaminophen 325 MG / Hydrocodone Bitartrate 5 MG Ora l Tablet 01/07/2020 12:00:00 AM [facility] Citric Acid 66.8 MG/ML / potassium citrate 220 MG/ML Oral Solution [facility] torsemide 100 MG Oral Tablet [facility] Docusate Sodium 50 MG / sennosides, SKILLED NURSING 8.6 MG Oral Tablet [facility] torsemide 20 MG Oral Tablet [facility] Tacrolimus 1 MG Oral Capsule [facility] Mycophenolic Acid 360 MG Delayed Release Oral Tablet [facility] Calcitriol 0.92011 MG Oral Capsule [facility] Minoxidil 2.5 MG Oral Tablet [facility] Magnesium Oxide 400 MG Oral Tablet [facility] Simvastatin 80 MG Oral Tablet [facility] POTASSIUM CITRATE ER PO [facility] Aspirin 81 MG Oral Tablet [facility] ezetimibe 10 MG / Simvastatin 40 MG Oral Tablet [facility] Allopurinol 300 MG Oral Tablet [facility] pantoprazole 40 MG Delayed Release Oral Tablet [facility] Metoprolol Tartrate 25 MG Oral Tablet [facility] Lisinopril 30 MG Oral Tablet [facility] Prednisone 5 MG Oral Tablet [facility] Mycophenolic Acid 360 MG Delayed Release Oral Tablet [facility] Tacrolimus 1 MG Oral Capsule [facility]
[2020-11-24 19:26] LABS: RSV AMPLIFICATION NEGATIVE (NEGATIVE)
[2020-11-24 19:39] LABS: EOS # 0.1 10^3/uL (0.0-0.5); EOS % 4.9 % (0.0-3.0); HEMATOCRIT 34.1 % (42.0-52.0); HEMOGLOBIN 10.6 g/dl (13.5-17.5); LYMPH # 0.4 10^3/uL (1.5-5.0); LYMPH % 16.4 % (24.0-44.0); MEAN CORPUSCULAR HEMOGLOBIN 30.4 pg (27.0-33.0); MEAN CORPUSCULAR HGB CONC 31.1 g/dl (32.0-36.5); MEAN CORPUSCULAR VOLUME 97.7 fl (80.0-96.0); MONO # 0.2 10^3/uL (0.0-0.8); MONO % 6.7 % (0.0-8.0); NEUTROPHILS # 1.6 10^3/uL (1.5-8.5); NEUTROPHILS % 71.6 % (36.0-66.0); PLATELET COUNT, AUTOMATED 113 10^3/uL (150-450); RED BLOOD COUNT 3.49 10^6/uL (4.30-6.10); WHITE BLOOD COUNT 2.3 10^3/uL (4.0-10.0)
[2020-11-24 19:49] LABS: ALBUMIN 3.3 GM/DL (3.2-5.2); ALT/SGPT 15 U/L (12-78); BILIRUBIN,DIRECT 0.1 MG/DL (0.0-0.2); BILIRUBIN,TOTAL 0.4 MG/DL (0.2-1.0); C REACTIVE PROTEIN QUANTITATIV 4.64 MG/DL (0.00-0.30); CK-MB VALUE MASS < 1.0 NG/ML (<3.6); CPK CREATINE PHOSPHOKINASE 53 U/L (39-308); MB/CK RELATIVE INDEX 1.89 (< OR =4); TOTAL PROTEIN 6.6 GM/DL (6.4-8.2); TROPONIN I < 0.02 NG/ML (< 0.10)
[2020-11-24 20:07] LABS: INR 0.94; PROTHROMBIN TIME 12.8 SECONDS (12.5-14.3)
[2020-11-24 20:08] LABS: PARTIAL THROMBOPLASTIN TIME 34.1 SECONDS (24.2-38.5)
[2020-11-24] MEDS ORDERED: ISOVUE-370 76% 100ML VIAL As Ordered ONE (21:27)
--- NOTE | 2020-11-24 22:28 | REPVR ---
PROCEDURE INFORMATION: Exam: CT Abdomen and Pelvis with Contrast Exam date and time: 11/24/20 (9:42pm) Age: 65 years old Clinical indication: Fever and vomiting TECHNIQUE: Imaging protocol: Computed tomography of the abdomen and pelvis with contrast. Radiation optimization: All CT scans at this facility use at least one of these dose optimization techniques: automated exposure control; mA and/or kV adjustment per patient size (includes targeted exams where dose is matched to clinical indication); or iterative reconstruction. Contrast material: Isovue 370 Contrast volume: 100 ml Contrast route: IV COMPARISON: CT ABDOMEN PELVIS of 02/10/16 FINDINGS: Lower lung anderson: Probable old linear scarring at each lung base. No pleural effusions. Liver: Normal. No solid mass. Gallbladder and bile ducts: Distended gallbladder. Calcified stone (4-5 mm size) layering dependently. No ductal dilatation. Pancreas: Normal. No ductal dilatation. Spleen: Normal. No splenomegaly. Adrenal glands: Normal. No mass. Kidneys and ureters: No hydronephrosis. Significant atrophy of the [place] kidneys (unchanged). These kidneys multiple cysts and non-obstructing calcifications again seen in the [place] kidneys. Renal transplant, without hydronephrosis, in the RLQ area. Faint cysts (most likely) multiple calcifications in the renal transplant. Stomach and bowel: Unremarkable. No bowel obstruction. No mucosal thickening. Appendix: No evidence of appendicitis. Intraperitoneal space: Unremarkable. No free air. No significant fluid collection. Vasculature: Atherosclerotic aortic and iliac artery calcifications. No abdominal aortic aneurysm. Lymph nodes: Unremarkable. No enlarged lymph nodes. Urinary bladder: Unremarkable as visualized. Reproductive: Unremarkable as visualized. Bones/joints: No acute fracture. Multilevel degenerative lumbar spine changes. Soft tissues: Unremarkable. IMPRESSION: No definite acute pathology. Solitary calcified gallstone (4-5 mm size), in a distended gallbladder. Atrophic [place] kidneys, without hydronephrosis. Transplanted kidney in the RLQ area, without hydronephrosis. Electronically signed by: Nadira Villeda On 11/24/2020 22:27:42 PM
[2020-11-24 23:04] VITALS: BP 180/80
--- NOTE | 2020-11-25 07:45 | ECGEPIP ---
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
== END 2020-11-24 23:14 | disposition home or self-care (01) ==
LOC: M ED 17:22
DX: R50.9 Fever, unspecified (principal); R53.1 Weakness; R11.10 Vomiting, unspecified; T50.Z95A Adverse effect of other vaccines and biological substances, initial encounter; X58.XXXA Exposure to other specified factors, initial encounter; Y92.89 Other specified places as the place of occurrence of the external cause; I12.0 Hypertensive chronic kidney disease with stage 5 chronic kidney disease or end stage renal disease; N18.6 End stage renal disease; Z99.2 Dependence on renal dialysis; Z79.899 Other long term (current) drug therapy
CPT/HCPCS: 36415; 71045; 74177; 80047; 80076; 82550; 82553; 83605; 84484; 85025; 85610; 85730; 86140; 87040; 87631; 93005; 93041; 94760; 99285; Q9967

== ENCOUNTER 2020-12-24 16:52 | Emergency (ER) | payer OTHER, MEDICARE ==
[~2020-12-24] VITALS: Ht 185.4 cm; Wt 84.5 kg
[~2020-12-24 16:52] MED LIST changes: +TUMS500C PO
[2020-12-24] MEDS ORDERED: LORAPOW30 (17:28)
[2020-12-24] MEDS ORDERED: oxyCODONE 5MG TAB PO ONE (18:05)
--- NOTE | 2020-12-24 18:11 | REP ---
INDICATION: cough. COMPARISON: 11/24/2020. TECHNIQUE: Portable AP chest with the patient upright. FINDINGS: The lung anderson are clear. Cardiac size is normal. The osmany, mediastinum and are unremarkable. 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 <Electronically signed by Gilberto Aguilar > 12/24/20 [id number]
--- NOTE | 2020-12-24 18:45 | REPVR ---
PROCEDURE INFORMATION: Exam: CT Head Without Contrast Exam date and time: 12/24/2020 6:00 PM Age: 65 years old Clinical indication: Other: Agitated TECHNIQUE: Imaging protocol: Computed tomography of the head without contrast. Radiation optimization: All CT scans at this facility use at least one of these dose optimization techniques: automated exposure control; mA and/or kV adjustment per patient size (includes targeted exams where dose is matched to clinical indication); or iterative reconstruction. COMPARISON: CT Head without contrast 02/29/2020 1:49 PM FINDINGS: Brain: No acute intracranial hemorrhage. There is nonspecific periventricular white matter hypodensity, new. No acute intracranial hemorrhage. There is subependymal nodularity with periventricular hyperattenuation similar to that of cortex. This is new from prior examination. Cerebral ventricles: Dysmorphic lateral ventricles. No hydrocephalus. Bones/joints: Unremarkable. No acute fracture. Paranasal sinuses: Moderate to severe paranasal sinus disease. Mastoid air cells: Visualized mastoid air cells are well aerated. Soft tissues: Unremarkable. IMPRESSION: 1. No acute intracranial hemorrhage. 2. There is subependymal nodularity about both lateral ventricles with associated mild hyperattenuation, new. There is also new decrease in ventricular size with ventricular dysmorphism and mild periventricular white matter hypodensity. Appearance is nonspecific, question interval development of ependymal/subependymal neoplastic process. MRI with and without contrast may be considered. Electronically signed by: Kody Jluio On 12/24/2020 18:44:50 PM
[2020-12-24 18:50] LABS: ALBUMIN 3.1 GM/DL (3.2-5.2); BILIRUBIN,TOTAL 0.3 MG/DL (0.2-1.0); CALCIUM LEVEL 8.3 MG/DL (8.8-10.2); CREATININE FOR GFR 2.55 MG/DL (0.70-1.30); GLOMERULAR FILTRATION RATE 26.9 (>49); POTASSIUM SERUM 4.5 MEQ/L (3.5-5.1); TOTAL PROTEIN 6.5 GM/DL (6.4-8.2)
[2020-12-24 18:51] LABS: EOS # 0.2 10^3/uL (0.0-0.5); EOS % 6.6 % (0.0-3.0); HEMOGLOBIN 9.9 g/dl (13.5-17.5); LYMPH # 0.5 10^3/uL (1.5-5.0); LYMPH % 19.3 % (24.0-44.0); MEAN CORPUSCULAR HEMOGLOBIN 30.1 pg (27.0-33.0); MEAN CORPUSCULAR HGB CONC 31.9 g/dl (32.0-36.5); MEAN CORPUSCULAR VOLUME 94.2 fl (80.0-96.0); MONO # 0.1 10^3/uL (0.0-0.8); MONO % 2.7 % (2.0-8.0); NEUTROPHILS # 1.8 10^3/uL (1.5-8.5); PLATELET COUNT, AUTOMATED 150 10^3/uL (150-450); RED BLOOD COUNT 3.29 10^6/uL (4.30-6.10); WHITE BLOOD COUNT 2.6 10^3/uL (4.0-10.0)
[2020-12-24] MEDS ORDERED: NS 1,000 ML IV SCH (19:05)
[2020-12-24 19:16] LABS: RSV AMPLIFICATION NEGATIVE (NEGATIVE)
--- NOTE | 2020-12-24 20:46 | REPVR ---
PROCEDURE INFORMATION: Exam: MR Head Without Contrast Exam date and time: 12/24/2020 7:03 PM Age: 65 years old Clinical indication: Condition or disease; History of cancer (specify primary cancer site): ; Primary cancer: Nasal cavity; Patient HX: HX melanoma, confusion TECHNIQUE: Imaging protocol: MR of the head without contrast. 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 There is abnormal nodularity about both lateral ventricles extending along the septum pellucidum. This demonstrates increased diffusion-weighted signal. There is adjacent edema. No associated susceptibility. No definite intraventricular fluid levels. Major vascular flow voids at the skull base are preserved. No extra-axial fluid collection. No evidence of acute ischemic infarct. Moderate to severe paranasal sinus disease. Small left mastoid effusion. IMPRESSION: Pathologic T2 weighted hyperintense ependymal/subependymal nodularity along both lateral ventricles demonstrating diffusion-weighted signal and adjacent edema. Finding is most likely neoplastic in etiology, infectious process considered less likely however not excluded. Follow-up recommended. Electronically signed by: Kody Julio On 12/24/2020 20:46:09 PM
[2020-12-24 21:08] VITALS: BP 172/95
== END 2020-12-24 21:17 | disposition home or self-care (01) ==
LOC: M ED 16:52
DX: R41.0 Disorientation, unspecified (principal); D43.2 Neoplasm of uncertain behavior of brain, unspecified; R93.7 Abnormal findings on diagnostic imaging of other parts of musculoskeletal system; I12.0 Hypertensive chronic kidney disease with stage 5 chronic kidney disease or end stage renal disease; N18.6 End stage renal disease; K21.9 Gastro-esophageal reflux disease without esophagitis; Z99.2 Dependence on renal dialysis; Z92.21 Personal history of antineoplastic chemotherapy; Z79.899 Other long term (current) drug therapy; Z87.891 Personal history of nicotine dependence